=== PATIENT | female | born 1980 | race Caucasian/White ===

== ENCOUNTER 2024-04-04 00:12 | Day surgery (SDC) | payer OTHER, SELFPAY ==
[2024-03-24 12:15] VITALS: BMI 37.1
[2024-04-04 07:55] VITALS: BP 104/57; PULSE 64; RESP 16; TEMP 36.1; O2SAT 98
[2024-04-04] MEDS: LACTATED RINGERS 1,000 ML 150 ML IV CONT (08:01)
--- NOTE | 2024-04-04 08:54 | PM.HPGS ---
History of Present Illness History of Present Illness Consent: Risks, benefits, and alternatives have been discussed and questions answered. Patient agrees to proceed with procedure. Chief complaint: colon screening Narrative: Airam Munoz is a 43 year old female here for first screening colonoscopy Review of Systems Review of Systems: All systems reviewed & are unremarkable except as noted in HPI and below PMFSH Past Medical History Medical History (Updated 04/04/24 @ 08:58 by Phuc Price MD) Colon cancer screening Endometriosis Vaginal delivery x2 Surgical History Surgical History History of right oophorectomy [place] teeth removed S/P laparoscopic hysterectomy History of appendectomy History of tubal ligation Family History Family History Mother Family history of malignant neoplasm of ovary Social History Social History Smoking status: Never smoker Alcohol intake: current Substance use: never Lack of Transportation: No Lack of Food: Never True Current Housing: I Have Housing Concerned About Future Housing: No Difficulty Paying Gas/Electric Bills: No Difficulty Paying for Meds: No Education: Master's Degree or Higher Difficulty w/ Childcare or Family Care: No Living arrangements: with family Occupation/Education: occupation Gender identity (if verbalized by the patient): Female Spiritual care concerns: No Agree to blood products: No Meds Home Medications and Allergies Home Medications ?Medication ?Instructions ?Recorded ?Confirmed ?Type escitalopram oxalate 5 mg tablet 5 mg PO DAILY #90 tabs 03/02/24 04/04/24 Rx (Lexapro) esterified 1 tablet PO DAILY 30 days #90 tabs 03/02/24 04/04/24 Rx estrogens-methyltestosterone 1.25 mg-2.5 mg tablet estradiol 0.5 mg tablet 0.5 mg PO DAILY #90 tabs 03/02/24 04/04/24 Rx cetirizine 10 mg capsule (All Day 10 mg PO DAILY 03/24/24 04/04/24 History Allergy (cetirizine)) omeprazole 20 mg tablet,delayed 20 mg PO DAILY 03/24/24 04/04/24 History release Allergies Allergy/AdvReac Type Severity Reaction Status Date / Time No Known Allergies Allergy Verified 04/04/24 07:53 Vital Signs Vital Signs - 24 hr 04/04/24 07:55 Temperature 97.0 F L Pulse Rate 64 Respiratory Rate 16 Blood Pressure 104/57 L Pulse Oximetry 98 Oxygen Delivery Room Air Exam Const: General: comfortable and no acute distress HENMT: Face/Nose/Sinus: Normal nares present Eyes: General: appearance normal, both eyes and all related structures Neck: Neck: no JVD Resp: Auscultation: clear to auscultation bilaterally Cardio: Rate: regular rate Rhythm: regular rhythm GI: Inspection: non-distended GI Palp: Yes Soft to palpation Skin: General skin exam: normal color Neuro: General: gait normal Speech: normal speech Extrem: General: normal to inspection Psych: Mental Status: mental status grossly normal Assessment and Plan Assessment and plan (1) Colon cancer screening: Code(s): Z12.11 - Encounter for screening for malignant neoplasm of colon Status: Acute Assessment and Plan: colonoscopy
--- NOTE | 2024-04-04 08:56 | WPDANESEPPF ---
Anes - Initial Pre Proc Eval Procedure: Operation Date: 04/04/24 09:00 Proposed Procedures p Screening Colonoscopy - Phuc Price MD Date/Time: 04/04/24 08:56 Surgeon: Phuc Price MD Pre Op Diagnosis: family hx of cancer Patient Data Age: 43 Gender: F Height: 1.68 m Weight: 105.5 kg Last Vital Signs Temp 97.0 F L 04/04/24 07:55 Pulse 64 04/04/24 07:55 Resp 16 04/04/24 07:55 BP 104/57 L 04/04/24 07:55 Pulse Ox 98 04/04/24 07:55 O2 Del Method Room Air 04/04/24 07:55 Allergies Allergy/AdvReac Type Severity Reaction Status Date / Time No Known Allergies Allergy Verified 04/04/24 07:53 Home Medications ?Medication ?Instructions ?Recorded ?Confirmed ?Type escitalopram oxalate 5 mg tablet 5 mg PO DAILY #90 tabs 03/02/24 04/04/24 Rx (Lexapro) esterified 1 tablet PO DAILY 30 days #90 tabs 03/02/24 04/04/24 Rx estrogens-methyltestosterone 1.25 mg-2.5 mg tablet estradiol 0.5 mg tablet 0.5 mg PO DAILY #90 tabs 03/02/24 04/04/24 Rx cetirizine 10 mg capsule (All Day 10 mg PO DAILY 03/24/24 04/04/24 History Allergy (cetirizine)) omeprazole 20 mg tablet,delayed 20 mg PO DAILY 03/24/24 04/04/24 History release Patient hx anesthesia problems: none Family hx anesthesia problems: none Results Review: All pre-operative results and documents have been reviewed as part of the pre-operative evaluation. [facility] Past Medical History Medical History Endometriosis Vaginal delivery x2 Surgical History Surgical History History of right oophorectomy [place] teeth removed S/P laparoscopic hysterectomy History of appendectomy History of tubal ligation Family History Family History Mother Family history of malignant neoplasm of ovary Social History Social History Smoking status: Never smoker Alcohol intake: current Substance use: never Lack of Transportation: No Lack of Food: Never True Current Housing: I Have Housing Concerned About Future Housing: No Difficulty Paying Gas/Electric Bills: No Difficulty Paying for Meds: No Education: Master's Degree or Higher Difficulty w/ Childcare or Family Care: No Living arrangements: with family Occupation/Education: occupation Gender identity (if verbalized by the patient): Female Spiritual care concerns: No Agree to blood products: No Anes - Eval Final PreProcedure Day of Procedure 04/04/24 08:56 Patient weight: obese Heart: regular rate and rhythm Lungs: clear to auscultation Airway: Mallampati scale class II Neurological: alert and oriented Last oral intake: >/= 8 hours ASA classification: III Emergent: no Anesthetic plan: proceed Anesthesia type and monitoring: general GIVS and standard monitoring Results Review: All pre-operative results and documents have been reviewed as part of the pre-operative evaluation. BMI 37, ROBERTO on CPAP. Informed Consent: The patient's anesthetic plan and its attendant risks and benefits were discussed with the patient/family/POA. Questions were solicited and answers provided to the satisfaction of the patient/family/POA.
[2024-04-04 09:16] VITALS: BP 103/64; PULSE 63; RESP 16; O2SAT 98
[2024-04-04 09:26] VITALS: BP 102/65; PULSE 64; RESP 16; O2SAT 100
[2024-04-04 09:36] VITALS: BP 115/64; PULSE 62; RESP 16; O2SAT 100
--- OUTSIDE RECORDS SUMMARY | 2024-04-11 00:40 | XMS_ITS | Encounter Summary ---
Author Organization [facility] Address [address] [place] [address] Care Team Providers Care Stamp Collector Name Role Phone Melonie Ochoa MD Primary Care Provider [phone] Reason for Visit * Auth/Cert Specialty Diagnoses / Procedures Referred By Yanni weaver Referred To Contact Diagnoses Diagnosis unknown Diagnosis unknown [R69] Procedures LAPAROSCOPIC FULGURATION/EXCISION ENDOMETRIOSIS WITH LASER Referral ID Status Reason Start Date Expiration Date Visits Re quested Visits Authorized [id number] 1 1 Encounter Details Date Type Department Care Team (Latest Contact Info) Description 05/04/2018 5:31 AM HEDGE FUND ACCOUNTANT - 05/04/2018 1:09 PM [facility] Hospital Encounter [facility] [address] [place] [address] Robert Portillo MD [address] [place] [address] Surgery General Discharge Disposition: Home or Self Care Social History Tobacco Use Types Packs/Day Years Used Date Smoking Tobacco: Never Smokeless Tobacco: Never Alcohol Use Standard Drinks/Week Comments Yes 1 (1 standard drink = 0.6 oz pur e alcohol) occasionally per month Sex and Gender Information Value Date Recorded Sex Assigned at Not on file Gender Identity Not on file Sexual Orientation Not on file documented as of this encounter Last Filed Vital Signs Vital Sign Reading Time Taken Comments Blood Pressure 112/72 05/04/2018 10:45 AM HEDGE FUND ACCOUNTANT Pulse 83 05/04/2018 10:45 AM HEDGE FUND ACCOUNTANT Temperature 36.3 ??C (97.4 ??F) 05/04/2018 10:[address] Respiratory Rate 16 05/04/2018 10:45 AM HEDGE FUND ACCOUNTANT Oxygen Saturation 100% 05/04/2018 10:45 AM HEDGE FUND ACCOUNTANT Inhaled Oxygen Concentration - - Weight 95.3 kg (210 lb) 05/04/2018 6:13 AM HEDGE FUND ACCOUNTANT Height 168.9 cm (5' 6.5 ) 05/04/2018 6:13 AM HEDGE FUND ACCOUNTANT Body Mass Index 33.39 05/04/2018 6:13 AM HEDGE FUND ACCOUNTANT documented in this encounter Functional Status Functional Status Response Date of Assess ment Is person deaf or have serious hearing difficult y? No 09/10/2016 Is person blind or have serious difficulty seein g? No 09/10/2016 Does person have serious dif ficulty walking/climbing stairs? No 09/10/2016 Does person have difficulty dressing/bathing? No 09/10/2016 Does person have difficulty doing errands alone? No 09/10/2016 Cognitive Status Response Date of Assessm ent Does person have difficulty concentrating/remembering/making decisions? No 09/10/2016 documented as of this encounter Medications at Time of Discharge Medication Sig Dispensed Refills Start Date End Date cetirizine (ZYRTEC) 10 MG tablet Take 10 mg by mouth once daily docusate sodium (COLACE) 100 MG capsule Take 1 capsule by mouth 2 times daily 60 capsule 05/04/2018 fluticasone propionate (FLONASE) 50 MCG/ACT nasal spray [place] 1 [place] into each nostril once daily 10/22/2015 ibuprofen (MOTRIN) 600 MG tablet Take 1 tablet by mouth every 6 hours 40 tablet 05/04/2018 oxyCODONE-acetaminop hen (PERCOCET) 5-325 MG tablet Take 2 tablets by mouth every 6 hours Do not exceed 3 grams of acetaminophen (TYLENOL) daily. 28 tablet 05/04/2018 polyethylene glycol 3350 (GLYCOLAX) powder Take 17 g by mouth once daily 500 g 09/11/2016 docusate sodium (COLACE) 100 MG capsuleIndications:C hronic pelvic pain in female Take 1 Cap by mouth 2 times daily 60 Cap 09/11/2016 05/14/2018 documented as of this encounter Progress Notes * Nissa Calzada RN - 05/04/2018 10:56 AM CST Up to Bathroom. Voided small amt. Of urine. Back to bed. E FUND ACCOUNTANT * Chandni Hummel RN - 05/04/2018 10:22 AM CST ATTEMPTED BED JENKINS UNABLE TO VOID AT THIS TIME. E FUND ACCOUNTANT documented in this encounter H&P Notes * Robert Portillo MD - 04/30/2018 10:29 AM CST Pre Op History & Physical Per chart review Pre-Operative Diagnosis: Endometriosis, status post optimal excision, total laparoscopic hysterectomy with bilateral salpingectomy and right oophorectomy, appendectomy in August 2016 Now left-sided pain for 1 month Patient is adamantly requesting to have a left oophorectomy Chronic pelvic pain Planned Procedure: Diagnostic laparoscopy, excision of endometriosis with carbon dioxide laser, left oophorectomy, cystoscopy with possible stent placement Surgeon: Dr. Robert Portillo MD History: 37 y.o. female here for follow-up visit with me for pre-op evaluation. Patient is s/p optimal excison in 2016 for chronic pelvic pain Biopsy + endometriosis was noted at time of surgery Endometriosis, status post optimal excision, total laparoscopic hysterectomy with bilateral salpingectomy and right oophorectomy, appendectomy in August 2016 Now left-sided pain for 1 month Patient is adamantly requesting to have a left oophorectomy PMH: Past Medical History: Diagnosis Date ??? Endometriosis ??? Seasonal allergies PSH: Past Surgical History: Procedure Laterality Date ??? APPENDECTOMY, LAPAROSCOPIC 09/10/2016 LAPAROSCOPIC APPENDECTOMY ??? Bilateral Tubal Ligation (BTL) ??? CYSTOSCOPY 09/10/2016 CYSTOSCOPY WITH HYDRODISTENSION #### SCIP #### ??? DILATION AND CURETTAGE mAB ??? Dilation and Curettage x 2 ??? ENDOMETRIAL ABLATION ??? ENDOMETRIOSIS FULGURATION 09/10/2016 Faviola - optimal lapex, TLH and right oophorectomy and BS, appendectomy, neg IC ??? HYSTERECTOMY TOTAL LAP W TUBE/OVARY 09/10/2016 TOTAL LAPAROSCOPIC HYSTERECTOMY RIGHT OOPHERECTOMY SALPINGECTOMY LEFT SALPINGECTOMY ??? HYSTEROSCOPY ??? LAPAROSCOPY, DIAGNOSTIC x 2 OB: OB History Para Term AB Living 3 1 1 1 1 SAB TAB Ectopic Multiple Live Births 1 1 # Outcome Date GA Lbr Noble/2nd Weight Sex Delivery Anes PTL Lv 3 2 Term 40w0d 4111 g (9 lb 1 oz) F Vag-Spont СЕРГЕЙ Comments: no complications 1 SAB Comments: mAB s/p D&C Obstetric Comments Denies h/o STDs and HIV. 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 Marital status: Spouse name: N/A ??? Number of children: N/A ??? Years of education: N/A Occupational History ??? Not on file. Social History Main Topics ??? Smoking status: Never Smoker ??? Smokeless tobacco: Never Used ??? Alcohol use 0.6 oz/week 1 Glasses of wine per week Comment: occasionally per month ??? Drug use: No ??? Sexual activity: Yes Partners: Male control/ protection: Hysterectomy Other Topics Concern ??? Not on file Social History Narrative No Known Allergies No current facility-administered medications for this encounter. Current Outpatient Prescriptions Medication Sig Dispense Refill ??? cetirizine (ZYRTEC) 10 MG tablet Take 10 mg by mouth once daily ??? cyclobenzaprine (FLEXERIL) 5 MG tablet Take 1 Tab by mouth 3 times daily as needed (Patient nottaking: Reported on 03/03/2018) 30 Tab 0 ??? docusate sodium (COLACE) 100 MG capsule Take 1 Cap by mouth 2 times daily (Patient not taking: Reported on 03/03/2018) 60 Cap 0 ??? fluticasone propionate (FLONASE) 50 MCG/ACT nasal spray [place] 1 [place] into each nostril once daily ??? HYDROcodone-acetaminophen (NORCO) 5-325 MG tablet Take 1 tablet by mouth every 4 hours as needed for Pain (Patient not taking: Reported on 04/21/2018) 28 tablet 0 ??? oxyCODONE-acetaminophen (PERCOCET) 5-325 MG tablet Take 1-2 tablets every 6 hours as needed forpain, by mouth. (Patient not taking: Reported on 04/21/2018) 28 tablet 0 ??? polyethylene glycol 3350 (GLYCOLAX) powder Take 17 g by mouth once daily (Patient not taking: Reported on 02/04/2018) 500 g 0 ??? traMADol (ULTRAM) 50 MG tablet Take 1 Tab by mouth every 6 hours (Patient not taking: Reported on 04/21/2018) 40 Tab 0 Exam in office per chart review: General: Within normal limits. Well appearing. Normal affect. Skin: Within normal limits. ENT: Thyroid within normal limits. No lymphadenopathy. Lungs: Within normal limits. Clear bilaterally. Cardiovascular: Regular rate and rhythm. Breast: Deferred Abdominal: Within normal limits. Scars noted. No palpable masses. Pain 6/10 in LLQ. ?? PELVIC: External genitalia: Within normal limits. modearte pelvic floor tension. Cervix: Surgically absent Uterus: Surgically absent There is tenderness of left vaginal cuff There is some tenderness to palpation of the vaginal sidewalls. Adnexa: not felt due to BMI Rectovaginal exam: No palpable masses. Guaiac not done. Lab Review: No results for input(s): ABORH in the last 27748 hours. Recent Labs Component Name 04/21/18 1434 09/11/16 0301 09/02/16 0940 WBC 8.1 10.6 7.0 HGB 13.5 11.7* 14.0 HCT 39.1 34.3* 40.7 PLTCOUNT 305 223 248 No results for input(s): SODIUM, POTASSIUM, CHLORIDE, CO2, BUN, CREATININE, GLUCOSE, CALCIUM in thelast 44082 hours. Assessment/Plan: 37 y.o. with: Endometriosis, status post optimal excision, total laparoscopic hysterectomy with bilateral salpingectomy and right oophorectomy, appendectomy in August 2016 Now left-sided pain for 1 month Patient is adamantly requesting to have a left oophorectomy Chronic pelvic pain Planned procedure: Diagnostic laparoscopy, excision of endometriosis with carbon dioxide laser, left oophorectomy, cystoscopy with possible stent placement Risks and Benefits of surgery were reviewed with the patient during her last clinic appointment, including but not limited to: infection, bleeding, possible need for blood transfusion, damage to surrounding structures (bladder, bowel, ureters). Problems requiring medication: None Norma Leslie MD Obstetrics and Gynecology, PGY-1 10:29 AM 04/30/2018 History and Physical note reviewed and agree with above. Consent and procedure discussed with patient. Risk, benefits and alternative reviewed in detail. Questions elicited and answered. Post op instructions/precautions given. Transfer to OR when ready. Robert Portillo MD E FUND ACCOUNTANT documented in this encounter OR Notes * Operative - Robert Portillo MD - 05/04/2018 1:09 PM CST Operative Note: Preoperative Diagnosis: Endometriosis, status post optimal excision surgery s/p Total laparoscopic hysterectomy with bilateral salpingectomy and right oophorectomy s/p Appendectomy Chronic pelvic pain - left-side dominant ?? Postoperative Diagnosis: Same ?? Procedure: Diagnostic laparoscopy Excision of abnormal peritoneum with CO2 laser Left oophorectomy Cystoscopic placement of bilateral ureteral guidewires Date of Procedure: 05/04/18 Anesthesia: General Surgeons: Robert Portillo MD Assistants: Susan Davila, DO EBL: 50 cc ?? Urine output: 150 cc ?? IV Fluids: 800 cc ?? Brief findings: 1. The left ovary appeared normal. 2. Abnormal lesions were excised from the areas of the peritoneal cavity as noted below 3. There were some mild adhesions of the sigmoid to the left lateral sidewall. 4. Normal liver, and gallbladder Pathology: Specimens collected: ID Type Source Tests Collected by Time Destination A : SIGMOID ADHESION Path Adhesions GROSS + MICRO EXAM (STL) Robert Portillo MD 05/04/2018 0844 B : LEFT OVARY Path Ovary GROSS + MICRO EXAM (STL) Robert Portillo MD 05/04/2018 0900 C : LEFT POSTERIOR CUL-DE-SAC Path Cul De Sac GROSS + MICRO EXAM (STL) Robert Hassan MD 05/04/2018 0901 Antibiotics: Cefazolin 2g IV Complications: None apparent. Procedure: The patient was taken back to the OR where anaesthesia was found to be adequate. The patient was prepped and draped in the usual fashion. Bilateral arms were tucked. The Bovie was on the left upper thigh. Bilateral SCDs were in place and functioning. Cystoscopy was performed in the usual fashion and bilateral ureteral guidewires were placed under direct cystoscopic visualization. Cystoscope was withdrawn. The Barrios, EEA sizer as a uterine manipulator, and medium-sized EEA sizer as a rectal probe were placed in the sterile field. 0.25% Marcaine was used for local anaesthesia at all port sites. A 12 mm incision was made with a #11 blade vertically in the inferior aspect of the umbilicus but within the borders of the umbilical crater. Curved Alas scissors were used to isolate the fascia. By elevating the umbilical stalk with a Renato, the fascial defect at the base of the umbilical stalk was identified and entered bluntly with a curved hemostat. The fascial defect was widened using S- retractors, traction and countertraction. The fascial edges were tagged were O-Vicryl. A 10mm balloon trocar was placed without difficulty. Operating pressure was 15 mmHg. The area directly below the umbilical site was inspected for bowel injury and was found to be negative. The patient was placed in steep Trendelenburg. A single bladeless 5 mm lateral port was placed 2 cm medial to the left ASIS, under direct visualization, and after transillumination to avoid the superficial epigastric vessels. An 8mm AirSeal port was placed 2cm medial to the right ASIS, under direct visualization. Findings were as above. Near contact laparoscopy was used to systematically identify all areas of abnormal peritoneum. All abnormal areas described above were excised with the CO2 laser. The laser was used first to circumscribe the lesion in situ. The peritoneum was then excised completely using blunt and sharp dissection. Hemostasis was achieved when needed using point coagulation with bipolar energy using the Jonh bipolar. There was excellent hemostasis. The ureters were seen to peristalse before, during, and after excision. All specimens were sent to pathology. Left oophorectomy was performed in the usual fashion. The left ovary was grasped and gently retracted away from the pelvic sidewall, exposing the IP ligament. Using the Ligasure device, the IP ligament was doubly clamped and coagulated prior to complete transection. Inspection of the pedicle revealed excellent hemostasis. The ovary was placed in an Endocatch bag and removed through the umbilical incision. Optimal excision of all areas of visible abnormal peritoneum was believed to be achieved. There wasexcellent hemostasis and the irrigation fluid was clear. The umbilical trocar was remvoed and the fascial defect at the umbilical incision was closed under direct visualization with aid of the Portillo-Cantor device. All trocars were removed. Pneumoperitoneum was completely reduced. The skin at the umbilicus was approximated using running subcuticular 4-0 Monocryl and dressed with gauze and a Tegaderm. A modified wound vacuum was created. The lateral incisions were hemostatic, closed with interrupted subcuticular sutures of 4-0 Monocryl, and dressed with Dermabond. All counts were correct, times two. The patient tolerated the procedure well and taken to the PACU in good condition. Dr. Portillo was/were scrubbed and present throughout the entire procedure. Susan Davila DO 05/04/2018 5:42 PM CC: Robert Portillo MD Operative note reviewed and modified Agree with description of procedure and findings as described above I was present for the entire procedure and performed all burns aspects of it. Robert Portillo MD professor of mathematics of OBGYN, [facility] Endometriosis, Minimally Invasive Gynecology E FUND ACCOUNTANT * Brief Op Note - Susan Davila DO - 05/04/2018 9:51 AM CST Brief Operative Note Patient: Airam Munoz Date: 05/04/2018, 9:51 AM Preoperative Diagnosis: Endometriosis, status post optimal excision surgery s/p Total laparoscopic hysterectomy with bilateral salpingectomy and right oophorectomy s/p Appendectomy Chronic pelvic pain - left-side dominant Postoperative Diagnosis: Same Procedure: Diagnostic laparoscopy Excision of abnormal peritoneum with CO2 laser Left oophorectomy Cystoscopic placement of bilateral ureteral guidewires Surgeon: Robert Portillo MD Seam Closer: Susan Davila DO Type of anesthesia: General Complications: None apparent EBL: 50 cc Urine output: 150 cc IV Fluids: 800 cc Brief findings: 1. The left ovary appeared normal. 2. Abnormal lesions were excised from the areas of the peritoneal cavity as noted below 3. There were some mild adhesions of the sigmoid to the left lateral sidewall. 4. Normal liver, and gallbladder Specimens: To Pathology ID Type Source Tests Collected by Time Destination A : SIGMOID ADHESION Path Adhesions GROSS + MICRO EXAM (STL) Robert Portillo MD 05/04/2018 0844 B : LEFT OVARY Path Ovary GROSS + MICRO EXAM (STL) Robert Portillo MD 05/04/2018 0900 C : LEFT POSTERIOR CUL-DE-SAC Path Cul De Sac GROSS + MICRO EXAM (STL) Robert Hassan MD 05/04/2018 0901 Full operative note to follow Susan Davila DO 05/04/2018 9:51 AM E FUND ACCOUNTANT documented in this encounter Plan of Treatment Not on file documented as of this encounter Procedures Procedure Name Priority Date/Time Associated Diagnosis Comments CARDIAC RHYTHM STRIP ORDER 05/06/2018 9:55 PM HEDGE FUND ACCOUNTANT APHERESIS/TRANSFUSIO N ORDER 05/06/2018 9:55 PM HEDGE FUND ACCOUNTANT PATHOLOGY TISSUE EXAM (STL) Routine 05/04/2018 8:44 AM HEDGE FUND ACCOUNTANT Diagnosis unknown LAPAROSCOPIC SALPINGECTOMY AND/OR OOPHORECTOMY 05/04/2018 7:23 AM HEDGE FUND ACCOUNTANT Diagnosis unknown Special Needs NEEDS AIRSEAL--NO REP NEEDED PER OFFICE (VERA) / NEEDS [employer] FOR 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 (MICHELLE) NOTIFIED, CONFIRMATION # [id number]--69/16 CT CYSTOSCOPY WITH INSERTION URETERAL STENT 05/04/2018 7:23 AM HEDGE FUND ACCOUNTANT Diagnosis unknown Special Needs NEEDS AIRSEAL--NO REP NEEDED PER OFFICE (VERA) / NEEDS [employer] [facility] FOR 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 (MICHELLE) NOTIFIED, CONFIRMATION # [id number]--22/16 CT LAPAROSCOPIC FULGURATION/EXCISION LESION PELVIC/OVARY (LASER) 05/04/2018 7:23 AM HEDGE FUND ACCOUNTANT Diagnosis unknown Special Needs NEEDS AIRSEAL--NO REP NEEDED PER OFFICE (VERA) / NEEDS [employer] [facility] 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 (MCIHELLE) NOTIFIED, CONFIRMATION # [id number]--78/16 CT documented in this encounter Results * CARDIAC RHYTHM STRIP ORDER (05/06/2018 9:55 PM HEDGE FUND ACCOUNTANT) Narrative 05/06/2018 9:55 PM HEDGE FUND ACCOUNTANT Ordered by an unspecified provider. Scanned Document CARDIAC SERVICES ORD ERABLES * APHERESIS/TRANSFUSION ORDER (05/06/2018 9:55 PM HEDGE FUND ACCOUNTANT) Narrative 05/06/2018 9:55 PM HEDGE FUND ACCOUNTANT Ordered by an unspecified provider. Scanned Document NURSING - VITAL SIGN S AND ASSESSMENT * GROSS + MICRO EXAM (STL) (05/04/2018 8:44 AM HEDGE FUND ACCOUNTANT) Case Report Surgical Pathology Report ? Case: [id number] ? Authorizing Provider: ??Robert Portillo MD ?Collected: ? 05/04/2018 08:44 AM ? Ordering Location: ? [facility] ? Received: ?05/04/2018 09:59 AM ? Pathologist: ? Danya Mtz MD ? Specimens: ?? A) - Adhesions, SIGMOID ADHESION ? B) - Ovary, LEFT OVARY ? C) - Cul De Sac , LEFT POSTERIOR CUL-DE-SAC ? 2018 4:10 PM HEDGE FUND ACCOUNTANT [facility] Final Diagnosis A: Soft tissue, sigmoid adhesion, excision: - Fibroconnective tissue with vascular congestion - Negative for endometriosis B: Ovary, left, oophorectomy: - Multiple cystic follicles C: Cul De Sac, left posterior, excision: - Negative for endometriosis 2018 4:10 PM HEDGE FUND ACCOUNTANT [facility] Gross Description The tissue is received in three containers of formalin all labeled Airam Munoz A. The first container is additionally labeled sigmoid adhesion and contains an irregular piece of purple-brown fibromembranous tissue measuring 1.7 x 0.6 x 0.2 cm. Sectioning displays a soft, purple-brown cut surface. The specimen is submitted entirely in cassette A1. B. The second container is additionally labeled left ovary and contains a 17 g ovary measuring 4.2 x 3.7 x 2.1 cm. The surface is red-yellow and smooth. Sectioning displays Mottled, purple-brown cut surface and scattered smooth-walled cysts ranging from 0.1 up to 1.3 cm. No solid areas or papillary excrescences are grossly appreciated. Cash Accountant sections are submitted in cassettes B1-B3. C. The third container is additionally labeled left posterior cul-de-sac and contains an irregular layer of purple-yellow fibromembranous tissue measuring 1.4 x 0.9 x 0.2 cm. Sectioning displays an unremarkable cut surface. The specimen is submitted entirely in cassette C1. XAVI/gerard 2018 4:10 PM [facility] Microscopic Description There is no evidence of atypia or malignancy. SD 2018 4:10 PM [facility] Disclaimer All histochemical and/or immunohistochemical results are interpreted with controls that demonstrate appropriate staining reactions before reporting results. Note on use of immunocytochemistry reagents: This test was developed and its performance characteristic determined by [facility], Department of Laboratory Medicine. It has not been cleared or approved by the U.S. Food and Drug Administration (FDA). The FDA has determined that such clearance or approval is not necessary. The test is used for clinical purpose. It should not be regarded as investigational or for research. This laboratory is certified to perform high complexity testing. 2018 4:10 PM [facility] Embedded Images 2018 4:10 PM [facility] Pathology/Cytology ADHESION / Unknown 8:44 AM HEDGE FUND ACCOUNTANT 05/04/2018 9:59 AM HEDGE FUND ACCOUNTANT Miscellaneous samples (specimen) ENTIRE OVARY / Unknown 05/04/2018 9:00 AM HEDGE FUND ACCOUNTANT 05/04/2018 9:59 AM HEDGE FUND ACCOUNTANT Miscellaneous samples (specimen) ENTIRE RECTOUTERINE POUCH / Unknown 05/04/2018 9:01 AM HEDGE FUND ACCOUNTANT 05/04/2018 9:59 AM HEDGE FUND ACCOUNTANT Robert Portillo MD LAB - PATHOLOGY/CY TOLOGY ORDERABLES [facility] [address] [place] [address] documented in this encounter Visit Diagnoses Diagnosis Diagnosis unknown Other unknown and unspecified cause of morbidity or mortality documented in this encounter Administered Medications Inactive Administered Medications - up to 3 most recent administrations Medication Order MAR Action Action Date Dose Rate Site acetaminophen (TYLENOL) tablet 1,000 mg 1,000 mg, Oral, ONCE, 1 dose, On Thu05/04/18 at 0600, Pre-op $ Given 05/04/2018 6:16 AM HEDGE FUND ACCOUNTANT 1,000 mg lactated ringers infusion at 20 mL/hr, Intravenous, PRE-OP CONTINUOUS, Starting on Thu05/04/18 at 0600, Until Thu05/04/18 at 1410, Pre-op $ New Bag/Syringe 05/04/2018 9:36 AM HEDGE FUND ACCOUNTANT $ New Bag/Syringe 05/04/2018 6:17 AM HEDGE FUND ACCOUNTANT 20 mL/ hr lidocaine (XYLOCAINE MPF) 1 % injection 0.2 mL 0.2 mL, Infiltration, PRE-OP MULTIPLE, 3 doses, Starting on Thu05/04/18 at 0558, Until Thu05/04/18 at 1410, May be used (0.2 ml locally to anesthetize prior to insertion)., Pre-op $ Given 05/04/2018 6:16 AM HEDGE FUND ACCOUNTANT 0.2 mL oxyCODONE-acetaminophen (PERCOCET) 5-325 MG tablet 2 tablet 2 tablet, Oral, EVERY 6 HOURS, First dose on Thu05/04/18 at 1200, Until Discontinued, Post-op $ Given 05/04/2018 11:07 AM HEDGE FUND ACCOUNTANT 1 tablet ropivacaine (NAROPIN ON-Q) 0.2% in ELASTOMERIC PUMP 550 mL 550 mL, Infiltration, CONTINUOUS, Starting on Thu05/04/18 at 0715, Until Thu05/04/18 at 1410, Infuse at 8-12 mL/hr REFRIGERATE scopolamine (TRANSDERM-SCOP) patch 1 mg 1 mg, Administer over 72 Hours, PRE-OP ONCE, 1 dose, On Thu05/04/18 at 0600, Apply patch behind the ear, do not cut patch, only 1 patch should be worn at a time and remove old patch before applying new patch.This patch may contain metal and is not compatible with MRI. Notify radiology of patch location upon arrival to MRI. All scopolamine patches deliver 1mg of scopolamine over 72 hours. Product may be labeled as 1mg/72 hours or 1.5mg/72 hours. $ Applied 05/04/2018 6:16 AM HEDGE FUND ACCOUNTANT 1 mg Behind Left Ear scopolamine patch placement confirmation Transdermal, 2 TIMES DAILY, 730 doses, First dose on Thu05/04/18 at 0900, Last dose on Thu05/03/19 at 2100, Patient has a patch to be confirmed on transition to inpatient and 2 times daily. documented in this encounter Active and Recently Administered Medications Times are shown in HEDGE FUND ACCOUNTANT. Scheduled Medication Order 05/02/2018 05/03/2018 05/04/2018 acetaminophen (TYLENOL) tablet 1,000 mg (COMPLETED) 1,000 mg, Oral, ONCE, 1 dose, On Thu05/04/18 at 0600, Pre-op 0616 ($ Given - Prov ider: Georgiana Pleitez RN) ceFAZolin (ANCEF) 2,000 mg in 50 ml IVPB (COMPLETED) 2,000 mg (2 g), at 100 mL/hr, Intravenous, PRE-OP ONCE, 1 dose, On Thu05/04/18 at 0600, Before reconstitution, protect from light, Indication for anti-infective therapy: Surgical prophylaxis 0747 ($ Given - Prov ider: Brigid Rees, CUSTOMER ASSISTANCE REPRESENTATIVE-GEAR CHANGER) lidocaine (XYLOCAINE MPF) 1 % injection 0.2 mL 0.2 mL, Infiltration, PRE-OP MULTIPLE, 3 doses, Starting on Thu05/04/18 at 0558, Until Thu05/04/18 at 1410, May be used (0.2 ml locally to anesthetize prior to insertion)., Pre-op 0616 ($ Given - Prov ider: Georgiana Pleitez RN) naloxone (NARCAN) injection 0.04 mg 0.04 mg, Intravenous, POST-OP MULTIPLE, Starting on Thu05/04/18 at 1000, Until Thu05/04/18 at 1410, Notify physician immediately, and mix 0.4 mg Naloxone in 9 mL Normal Saline for slow IV push. Administer dilute Naloxone solution IV very slowly (5 mL over 2 minutes) while observing the patient response and titrating to effect. If no response, call Rapid Response, continue IV Naloxone at the same rate up to a total of 0.8 mg of diluted Naloxone., PACU oxyCODONE-acetaminophen (PERCOCET) 5-325 MG tablet 2 tablet 2 tablet, Oral, EVERY 6 HOURS, First dose on Thu05/04/18 at 1200, Until Discontinued, Post-op 1107 ($ Given - Prov ider: Nissa Calzada RN) scopolamine (TRANSDERM-SCOP) patch 1 mg(Linked Group 1) 1 mg, Administer over 72 Hours, PRE-OP ONCE, 1 dose, On Thu05/04/18 at 0600, Apply patch behind the ear, do not cut patch, only 1 patch should be worn at a time and remove old patch before applying new patch.This patch may contain metal and is not compatible with MRI. Notify radiology of patch location upon arrival to MRI. All scopolamine patches deliver 1mg of scopolamine over 72 hours. Product may be labeled as 1mg/72 hours or 1.5mg/72 hours. 0616 ($ Applied - Pr ovider: Georgiana Pleitez RN) scopolamine patch placement confirmation(Linked Group 1) Transdermal, 2 TIMES DAILY, 730 doses, First dose on Thu05/04/18 at 0900, Last dose on Thu05/03/19 at 2100, Patient has a patch to be confirmed on transition to inpatient and 2 times daily. 0900 (Due) Continuous Medication Order 05/02/2018 05/03/2018 05/04/2018 lactated ringers infusion at 20 mL/hr, Intravenous, PRE-OP CONTINUOUS, Starting on Thu05/04/18 at 0600, Until Thu05/04/18 at 1410, Pre-op 0617 ($ New Bag/Syri nge - Provider: Georgiana Pleitez RN)0919 (Anesthesia Volume Adjustment - Provider: Brigid Rees APRN-GEAR CHANGER)0936 ($ New Bag/Syringe - Provider: Brigid Rees MOISÉS-GEAR CHANGER) ropivacaine (NAROPIN ON-Q) 0.2% in ELASTOMERIC PUMP 550 mL 550 mL, Infiltration, CONTINUOUS, Starting on Thu05/04/18 at 0715, Until Thu05/04/18 at 1410, Infuse at 8-12 mL/hr REFRIGERATE 0715 (Due) PRN Medication Order 05/02/2018 05/03/2018 05/04/2018 0.9% nacl irrigation solution (CANCELED) PRN, Starting on Thu05/04/18 at 0918, Until Thu05/04/18 at 0959, Intra-op 0918 ($ Given - Prov ider: Robert Portillo MD) 0.9% nacl irrigation solution (CANCELED) PRN, Starting on Thu05/04/18 at 0930, Until Thu05/04/18 at 0959, Intra-op 0930 ($ Given - Prov ider: Robert Portillo MD - Comment: irrigation) bupivacaine PF (MARCAINE PF) 0.25 % injection (CANCELED) PRN, Starting on Thu05/04/18 at 0931, Until Thu05/04/18 at 0959, Intra-op 0931 ($ Given - Prov ider: Robert Portillo MD) fentaNYL (PF) (SUBLIMAZE) injection 50 mcg 50 mcg, Intravenous, EVERY 3 MIN PRN, Mild Pain, 4 doses, Starting on Thu05/04/18 at 1000, Until Thu05/04/18 at 1410, Maximum total of 4 doses. If patient reaches max total dose, please consult anesthesiologist prior to further administration of pain meds. Hold pain meds if there are signs of hypoventilation., PACU HYDROmorphone (DILAUDID) injection 0.2 mg 0.2 mg, Intravenous, EVERY 15 MIN PRN, Moderate Pain, 5 doses, Starting on Thu05/04/18 at 1000, Until Thu05/04/18 at 1410, Maximum total of 5 doses If patient reaches max total dose, please consult anesthesiologist prior to further administration of pain meds. Hold pain meds if there are signs of hypoventilation., PACU HYDROmorphone (DILAUDID) injection 0.5 mg 0.5 mg, Intravenous, EVERY 10 MIN PRN, Severe Pain, 4 doses, Starting on Thu05/04/18 at 1000, Until Thu05/04/18 at 1410, Maximum total of 4 doses If patient reaches max total dose, please consult anesthesiologist prior to further administration of pain meds. Hold pain meds if there are signs of hypoventilation., PACU HYDROmorphone (DILAUDID) injection 0.5 mg 0.5 mg, Intravenous, EVERY 3 HOURS PRN, Severe Pain, Starting on Thu05/04/18 at 1050, Until Thu05/04/18 at 1410, Post-op metoclopramide (REGLAN) injection 5 mg 5 mg, Intravenous, EVERY 6 HOURS PRN, Nausea/Vomiting, Starting on Thu05/04/18 at 1050, Until Thu05/04/18 at 1410, If no relief from ondansetron (ZOFRAN) or prochlorperazine (COMPAZINE), use metoclopramide (REGLAN) in addition to ondansetron and prochlorperazine., Post-op metoclopramide (REGLAN) injection 5 mg 5 mg, Intramuscular, EVERY 6 HOURS PRN, Nausea/Vomiting, Starting on Thu05/04/18 at 1050, Until Thu05/04/18 at 1410, If no relief from ondansetron (ZOFRAN) or prochlorperazine (COMPAZINE), use metoclopramide (REGLAN). Use IM route if IV is unavailable in addition to ondansetron and prochlorperazine., Post-op ondansetron (disintegrating) (ZOFRAN ODT) tablet 4 mg 4 mg, Oral, EVERY 6 HOURS PRN, Nausea/Vomiting, Starting on Thu05/04/18 at 1050, Until Thu05/04/18 at 1410, Allow tablet to dissolve on the tongue, Post-op ondansetron (ZOFRAN) injection 4 mg 4 mg, Intravenous, ONCE PRN, Nausea/Vomiting, 1 dose, Starting on Thu05/04/18 at 1000, Until Thu05/04/18 at 1410, First choice, PACU ondansetron (ZOFRAN) injection 4 mg 4 mg, Intravenous, EVERY 6 HOURS PRN, Nausea/Vomiting, Starting on Thu05/04/18 at 1050, Until Thu05/04/18 at 1410, Administer IV if patient is NPO, actively vomiting, or unable to swallow., Post-op prochlorperazine (COMPAZINE) injection 5 mg 5 mg, Intravenous, EVERY 6 HOURS PRN, Nausea/Vomiting, Starting on Thu05/04/18 at 1050, Until Thu05/04/18 at 1410, If no relief from ondansetron (ZOFRAN), use prochlorperazine (COMPAZINE) in addition to ondansetron., Post-op prochlorperazine (COMPAZINE) injection 5 mg 5 mg, Intramuscular, EVERY 6 HOURS PRN, Nausea/Vomiting, Starting on Thu05/04/18 at 1050, Until Thu05/04/18 at 1410, If no relief from ondansetron (ZOFRAN), use prochlorperazine (COMPAZINE) in addition to ondansetron. Use IM route if IV is unavailable., Post-op Linked Groups Order Group 1: scopolamine (TRANSDERM-SCOP) patch 1 mgJump to med 1 mg, Administer over 72 Hours, PRE-OP ONCE, 1 dose, On Thu05/04/18 at 0600, Apply patch behind the ear, do not cut patch, only 1 patch should be worn at a time and remove old patch before applying new patch.This patch may contain metal and is not compatible with MRI. Notify radiology of patch location upon arrival to MRI. All scopolamine patches deliver 1mg of scopolamine over 72 hours. Product may be labeled as 1mg/72 hours or 1.5mg/72 hours. And scopolamine patch placement confirmationJump to med Transdermal, 2 TIMES DAILY, 730 doses, First dose on Thu05/04/18 at 0900, Last dose on Thu05/03/19 at 2100, Patient has a patch to be confirmed on transition to inpatient and 2 times daily. documented in this encounter Care Teams Stamp Collector Relationship Specialty Start Date End Date Melonie Ochoa MD PCP - General 02/04/18 documented as of this encounter
--- OUTSIDE RECORDS SUMMARY | 2024-04-11 00:40 | XMS_ITS ---
Care Plan - [facility] Created on: April 11, 2024 CAROLINA KISER : 1980 Sex: Female Author Organization [facility] Address [address] [place] [address] Phone Care Team Providers Care Draftsperson Name Role Phone ROBERTO RIVERA DO Unavailable [phone] DEVONTE ARAUJO, ROGELIO Armas Primary Care Provider [phone]
--- OUTSIDE RECORDS SUMMARY | 2024-04-11 00:40 | XMS_ITS | Clinical Summary ---
Author Organization [facility] Address [address] [place] [address] Phone Care Team Providers Care Marketing Professor Name Role Phone NICOLE ANTHONY ROBERTO Herson Unavailable [phone] DEVONTE ARAUJO, ROGELIO Armas Primary Care Provider [phone] Reason for Visit and Chief Complaint * PHONE CALL Problems Includes: Problems addressed during this encounter and other active Problems All Visits Onset Date Resolved Date Provider Condition S segundo Reported Family History of Cancer 12/30/2010 [facility]- Active Last Documented On 12/30/2010 1:51PM ; [facility] Note: mother of cervical cancer Plan of Treatment No Plan of Treatment Recorded Assessments Includes: Assessments from this encounter No Assessments Recorded Medical Equipment - Implanted Devices Includes: Current Devices No Medical Equipment Recorded Medications Includes: Medications discussed during this encounter and other current Medications Current Medications (continue as prescribed) Diflucan 150 MG OR TABS 10/26/2013 Provider: ROGELIO WHITNEY MD Diagnosis: take one po today and repeat in 3 days was phoned to [facility]. Last Documented On 4 3:35PM By SHERRI UNDERWOOD LPN ; [facility] Quasense 0.15-0.03 MG OR TABS 10/11/2013 Provider: Diagnosis: Last Documented On 10/11/2013 11:04AM By ANNY BOWMAN LPN ; [facility] Ibuprofen 600 MG OR TABS 07/04/2013 Provider: FERMIN WHITNEY MD Diagnosis: Last Documented On 07/18/2013 4:29PM By ANNY BOWMAN LPN ; [facility] HYDROcodone-Acetaminophen 5-325 MG OR TABS 06/07/2013 Provider: ROGELIO WHITNEY MD Diagnosis: Last Documented On 07/18/2013 4:29PM By ANNY BOWMAN LPN ; [facility] Past Medications on file Lomedia 24 FE 1-20 MG-MCG(24 ) OR TABS 01/12/2014 - 09/21/2014 Provider: ROGELIO WHITNEY MD Diagnosis: Last Documented On 01/12/2014 1:10PM By ROGELIO WHITNEY MD ; [facility] Ibuprofen 800 MG OR TABS 10/11/2013 - 02/08/2014 Provi kavya: ROGELIO WHITNEY MD Diagnosis: i po Q 8 hours prn pain Last Documented On 10/11/2013 11:27AM By ROGELIO WHITNEY MD ; [facility] Quasense 0.15-0.03 MG OR TABS 10/11/2013 - 10/10/2014 Provider: ROGELIO WHITNEY MD Diagnosis: May substitute any Q3 month cycling OCP (seasonale, seasonique or generic equivalent) Last Documented On 10/11/2013 11:26AM By ROGELIO WHITNEY MD ; [facility] HYDROcodone-Acetaminophen 5- 325 MG OR TABS 06/07/2013 - 06/12/2013 Provider: ROGELIO WHITNEY MD Diagnosis: Last Documented On 06/07/2013 8:24AM By ROGELIO WHITNEY MD ; [facility] Clindamycin HCl 300 MG OR CAPS 05/19/2013 - 05/26/2013 Provider: ELIAS WHITE BC Diagnosis: VAGINITIS NOS TAKE W/FOOD DIRECTED Last Documented On 4 8:48AM By ELIAS NATARAJAN ; [facility] Nitrofurantoin Macrocrystal 100 MG OR CAPS 05/16/2013 - 05/23/2013 Provider: ELIAS WHITE BC Diagnosis: URINARY FREQUENC Y Last Documented On 4 2:44PM By ELIAS NATARAJAN ; [facility] traMADol HCl 50 MG OR TABS 04/14/2013 - 04/21/2013 Pro vider: ROGELIO WHITNEY MD Diagnosis: i-ii po Q6 hours prn pain Last Documented On 04/14/2013 11:55AM By ROGELIO WHITNEY MD ; [facility] NIFEdipine 20 MG OR CAPS 03/30/2012 - 04/14/2012 Provi kavya: ROGELIO WHITNEY MD Diagnosis: Last Documented On 03/30/2012 2:46PM By ROGELIO WHITNEY MD ; [facility] Triveen-Duo DHA 29-1-200 & 4 00 MG OR MISC 02/23/2012 - 02/17/2013 Provider: ROGELIO WHITNEY MD Diagnosis: Last Documented On 02/23/2012 4:37PM By ROGELIO WHITNEY MD ; [facility] RE OB + DHA 27-1 & 250 MG OR MISC 04/25/2010 - 012 Provider: ROGELIO WHITNEY MD Diagnosis: If this isn't one of the lola e ones please substitute, thanks Last Documented On 04/25/2010 3:02PM By ROGELIO WHITNEY MD ; [facility] predniSONE 10 MG OR TABS 09/05/2009 - 10/05/2009 Provi kavya: RELL ZIMMERMAN D.OJeanmarie Diagnosis: DERMATITIS NOS 4 PILLS QD X2D 3 PILLS QD X2 D, 2 PILL QD X2D,1 PILL QD X2D Last Documented On 09/05/2009 11:51AM By RELL ZIMMERMAN DO ; [facility] Bactrim DS 800-160 MG OR TABS 03/07/2009 - 03/17/2009 Provider: BOUBACAR Odonnell Diagnosis: Ganglion Of Tend on Last Documented On 03/07/2009 12:02PM By BOUBACAR BRITT PA-C ; [facility] Medications Administered Includes: Administered Medications from this encounter No Administered Medications Recorded Results Includes: Results discussed during this encounter No Results Recorded For Specified Dates History of Present Illness Includes: History of Present Illness from this encounter No History of Present Illness Recorded Social History No Social History Recorded - Smoking Status Unknown Medical History Includes: Medical History addressed during this encounter No Medical History Recorded Family History Includes: Family History addressed during this encounter No Family History Recorded Review of Systems Includes: Review of Systems from this encounter No Review of Systems Recorded Mental Status Includes: Mental Status from this encounter No Mental Status Recorded Functional Status Includes: Functional Status from this encounter No Functional Status Recorded Physical Exam Includes: Physical Exam from this encounter No Physical Exam Recorded Allergies Includes: Active Allergies Substance Type Reaction Onset Date Resolved Date Statu s Codeine Allergy 09/15/2008 Active Last Documented On 9 10:48AM ; [facility] Encounters Encounter Provider Location Date Check-In Time Check-Out Time Diagnosis * PHONE CALL ROGELIO WHITNEY MD [facility] [employer] STEWARD[employer] 9:03AM 11:59PM Insurance Includes: Active Insurance Policies Plan Name Member ID Group # Subscriber Relationship Effect tiffanie Dates 1 - [facility] [id number] CAROLINA Santana Clinical Notes Includes: Clinical Notes from this encounter No Clinical Notes Recorded
--- OUTSIDE RECORDS SUMMARY | 2024-04-11 00:40 | XMS_ITS | Encounter Summary ---
Author Organization [facility] Address [address] [place] [address] Care Team Providers Care Outreach Representative Name Role Phone Melonie Ochoa MD Primary Care Provider [phone] Reason for Visit * Reason Comments Follow-up Encounter Details Date Type Department Care Team (Late st Contact Info) Description 03/03/2018 3:30 PM MARINE DIVER Office Visit [facility] Obstetrics Gynecology and Women's Health [address] [place] [address] Robert Portillo MD [address] [place] [address] Endometriosis (Primary Dx); Chronic pelvic pain in female Social History Tobacco Use Types Packs/Day Years [...] Sign Reading Time Taken Comments Blood Pressure 120/70 03/03/2018 3:43 PM MARINE DIVER Pulse - - Temperature - - Respiratory Rate - - Oxygen Saturation - - Inhaled Oxygen Concentration - - Weight 94.8 kg (209 lb) 03/03/2018 3:43 PM MARINE DIVER Height 168.9 cm (5' 6.5 ) 03/03/2018 3:43 PM MARINE DIVER Body Mass Index 33.23 03/03/2018 3:43 PM MARINE DIVER documented in this encounter Functional Status Functional [...] No 09/10/2016 documented as of this encounter Patient Instructions * Patient Instructions* Robert Portillo MD - 03/03/2018 4:28 PM MARINE DIVER [email or web address] How to Contact Us Between Office Visits If you need to make an appointment with your doctor, please do so before you leave today. If you need to check your schedule prior to making your next appointment, please call us at [phone] as soon as possible to schedule. For scheduling routine appointments, requesting refills or leaving a message for your doctor, the office phone is [phone]. You will be given options to get to the assistance you need. Phone lines are open from 8:00 am to 4:30 pm Thursday through Thursday. All prescription refills must be requestedduring regular office phone hours. Our fax number is [phone]. After hours urgent calls that cannot wait until phone lines are open on the next business day are given to the physician class a regional drivers. Please call [phone]. Identify yourself as a patient in our practice and give the well servicing rig operator your doctor's name. The well servicing rig operator will contact the physician class a regional drivers to address your concerns. Thank you for enrolling in [employer]. [employer] allows you to send messages to your health care team, view your test results, renew your prescriptions, request appointments, and more. How Do I Sign Up? 1. In the address bar of your Internet browser, type the following address: [email or web address] 2. Click on the Sign Up Now link in the New User? box. 3. Enter your [employer] Access Code exactly as it appears below. You will not need to use this code after you???ve completed the sign-up process. If you do not sign up before the expiration date, you must request a new code. [employer] Access Code: [email or web address] 4. Enter the last four digits of your Social Security Number (xxxx) and Date of (mm/dd/yyyy) as indicated and click Next. 5. Create a [employer] ID. This will be your [employer] login ID and cannot be changed, so think of one that is secure and easy to remember. 6. Create a [employer] password. (You can change your password at any time.) 7. Enter your Password Reset Question and Answer. (This will be used if you forget your password inthe future.) 8. Enter your e-mail address. (You will receive e-mail notifications when new information is available in [employer].) 9. Click Sign- Up. After accepting the Terms and Conditions you will be able to view your medical record. Additional Information If you have questions or problems signing up, call the [facility] [employer] Team at [phone]. Pleasenote that [employer] is not designed to address urgent needs. For medical emergencies, dial 911. NE DIVER documented in this encounter Progress Notes * Robert Portillo MD - 03/03/2018 4:04 PM CST 37 y.o. female here for follow-up visit with me for pre-op evaluation. Patient is s/p optimal excison in 2017 for chronic pelvic pain Biopsy + endometriosis was noted At time of surgery PE - at next visit ASSESSMENT: Endometriosis, status post optimal excision, total laparoscopic hysterectomy with bilateral salpingectomy and right oophorectomy, appendectomy in August 2016 Now left-sided pain for 1 month Patient is adamantly requesting to have a left oophorectomy PLAN: Surgical plan is diagnostic laparoscopy, excision of endometriosis with carbon dioxide laser, left oophorectomy. PT appointment given Discussed differential diagnosis of pelvic pain. Discussed possibility of endometriosis and possibility of adenomyosis. Discussed management options including hormonal suppression versus surgical management. Discussed excision versus ablation in the operative management of endometriosis. Discussed with the patient the risk, benefits and alternatives to operative laparoscopy, including but not limited to the risks of bleeding, infection, damage to internal organs including the bowel, bladder, ureters, nerves and blood vessels, and risk of laparotomy. Also, counseled on expectations after surgery, and the risk of the need for future surgery. All questions answered. 40 minutes was spent in face to face consultation with the patient, greater than 50% of which was counseling. Patient verbalizes understanding. NE DIVER documented in this encounter Plan of Treatment Not on file documented as of this encounter Visit Diagnoses Diagnosis Endometriosis- Primary Chronic pelvic pain in female Unspecified symptom associated with female genital organs documented in this encounter Care Teams Outreach Representative Relationship Specialty Start Date End Date Melonie Ochoa MD PCP - General 02/04/18 documented as of this encounter
--- OUTSIDE RECORDS SUMMARY | 2024-04-11 00:40 | XMS_ITS | Encounter Summary ---
Author Organization [facility] Address [address] [place] [address] Care Team Providers Care Cemetery Manager Name Role Phone Melonie Ochoa MD Primary Care Provider [phone] Reason for Visit * Reason Comments Post-Op Encounter Details Date Type Department Care Team (Late st Contact Info) Description 05/14/2018 4:15 PM SAP TREASURY CONSULTANT Office Visit [facility] Obstetrics Gynecology and Women's Health [address] [place] [address] Robert Portillo MD [address] [place] [address] Post-operative state (Primary Dx) Social History Tobacco Use Types Packs/Day Years [...] Sign Reading Time Taken Comments Blood Pressure 100/68 05/14/2018 4:41 PM SAP TREASURY CONSULTANT Pulse - - Temperature - - Respiratory Rate - - Oxygen Saturation - - Inhaled Oxygen Concentration - - Weight 95.3 kg (210 lb) 05/14/2018 4:41 PM SAP TREASURY CONSULTANT Height 167.6 cm (5' 6 ) 05/14/2018 4:41 PM SAP TREASURY CONSULTANT Body Mass Index 33.89 05/14/2018 4:41 PM SAP TREASURY CONSULTANT documented in this encounter Functional Status Functional [...] * Patient Instructions* Robert Portillo MD - 05/14/2018 4:54 PM SAP TREASURY CONSULTANT [email or web address] How to Contact Us Between Office Visits If you need to make an appointment with your doctor, please do so before you leave today. If you need to check your schedule prior to making your next appointment, please call us at [phone] as soon as possible to schedule. For scheduling routine appointments, requesting refills or leaving a message for your doctor, the office phone is [phone]. You will be given options to get to the assistance you need. Phone lines are open from 8:00 am to 4:30 pm Thursday through Thursday. All prescription refills must be requestedduring regular office phone hours. Our fax number is [phone]. After hours urgent calls that cannot wait until phone lines are open on the next business day are given to the physician regional economic liaison. Please call [phone]. Identify yourself as a patient in our practice and give the issuing operator your doctor's name. The issuing operator will contact the physician regional economic liaison to address your concerns. Thank you for enrolling in [employer]. [employer] allows you to send messages to your health care team, view your test results, renew your prescriptions, request appointments, and more. How Do I Sign Up? 1. In the address bar of your Internet browser, type the following address: [email or web address] 2. Click on the Sign Up Now link in the New User? box. 3. Enter your [employer] Access Code exactly as it appears below. You will not need to use this code after you???ve completed the sign-up process. If you do not sign up before the expiration date, you must request a new code. [employer] Access Code: [email or web address] 4. Enter the last four digits of your Social Security Number (xxxx) and Date of (mm/dd/yyyy) as indicated and click Next. 5. Create a [employer] ID. This will be your [employer] login ID and cannot be changed, so think of one that is secure and easy to remember. 6. Create a [employer] password. (You can change your password at any time.) 7. Enter your Password Reset Question and Answer. (This will be used if you forget your password inthe future.) 8. Enter your e-mail address. (You will receive e-mail notifications when new information is available in [employer].) 9. Click Sign- Up. After accepting the Terms and Conditions you will be able to view your medical record. Additional Information If you have questions or problems signing up, call the [facility] [employer] Team at [phone]. Pleasenote that In[employer] is not designed to address urgent needs. For medical emergencies, dial 911. TREASURY CONSULTANT documented in this encounter Progress Notes * Robert Portillo MD - 05/14/2018 4:50 PM CST 38 y.o. female who is here 2 weeks status post diagnostic laparoscopy Patient denies fevers, nausea, uncontrolled pain, or significant bleeding. Procedure:?? Diagnostic laparoscopy Excision of abnormal peritoneum with CO2 laser Left oophorectomy Cystoscopic placement of bilateral ureteral guidewires Brief findings:?? 1. The left??ovary??appeared normal. 2. Abnormal lesions were excised from the areas of the peritoneal cavity as noted below 3. There were some mild adhesions of the sigmoid to the left lateral sidewall. 4. Normal liver, and gallbladder Pathology: A: Soft tissue, sigmoid adhesion, excision: - Fibroconnective tissue with vascular congestion - Negative for endometriosis ? B: Ovary, left, oophorectomy: - Multiple cystic follicles ?? C: Cul De Sac, left posterior, excision: - Negative for endometriosis Vitals: 05/14/18 1641 BP: 100/68 Weight: 210 lb Height: 5' 6 Physical: Abdomen: Soft, non-distended. Non-tender. Incision are clean, dry and intact. Pelvic: Deferred. Impression: Postoperative visit. Doing well. Plan: Return to activities as tolerated. Pathology results reviewed with the patient . No specimens excised were endometriosis on pathology. Will defer hormone management, if needed or desired by the patient, to the primary critical care specialist. [place]-3 fish oil (total dose of 2000 mg per day) can be used for its potent anti-inflammatory properties. Discussed that the goal of surgery is to help pain by treating disease which is usually effective, but that endometriosis and pain are different entities. Clarified that should pain persist or return, it does not mean that the endometriosis has necessarily returned, and that patient may be referredto our multidisciplinary [facility] for treatment of pain. Discussed while there is no cure for endometriosis and that it can always return, that the risk of recurrence or persistence of the disease is low. Follow up with Dr. Mora for on-going women's health care. Follow up with me in 6 months or earlier as needed. TREASURY CONSULTANT documented in this encounter Plan of Treatment Not on file documented as of this encounter Visit Diagnoses Diagnosis Post-operative state- Primary Other postprocedural status documented in this encounter Care Teams Cemetery Manager Relationship Specialty Start Date End Date Melonie Ochoa MD PCP - General 02/04/18 documented as of this encounter
--- OUTSIDE RECORDS SUMMARY | 2024-04-11 00:40 | XMS_ITS | Clinical Summary ---
Author Organization [facility] Address [address] [place] [address] Phone Care Team Providers Care Footwear Sales Associate Name Role Phone ROBERTO RIVERA DO Herson Unavailable [phone] DEVONTE ARAUJO, ROGELIO Armas Primary Care Provider [phone] Reason for Visit and Chief Complaint [Patient Encounter] Problems Includes: Problems addressed during this encounter and other active Problems All Visits Onset Date Resolved Date Provider Condition S segundo Reported Family History of Cancer 12/30/2010 [facility]- Active Last Documented On 12/30/2010 1:51PM ; [facility] Note: mother of cervical cancer Plan of Treatment No Plan of Treatment Recorded Assessments Includes: Assessments from this encounter No Assessments Recorded Medical Equipment - Implanted Devices Includes: Current Devices No Medical Equipment Recorded Medications Includes: Medications discussed during this encounter and other current Medications New / Renewed during this visit ROGELIO WHITNEY MD on 01/12/2014 Lomedia 24 FE 1-20 MG-MCG(24 ) OR TABS Provider: ROGELIO WHITNEY MD 84 day supply: 84 tablet, 2 refills Diagnosis: Pharmacy: [facility], [place] ([place]) - [address], [address] - Last Documented On 01/12/2014 1:10PM By ROGELIO WHITNEY MD ; [facility] Current Medications (continue as prescribed) Diflucan 150 MG OR TABS 10/26/2013 Provider: ROGELIO WHITNEY MD Diagnosis: take one po today and repeat in 3 days was phoned to [facility]/[place]. Last Documented On 4 3:35PM By SHERRI UNDERWOOD LPN ; [facility] Quasense 0.15-0.03 MG OR TABS 10/11/2013 Provider: Diagnosis: Last Documented On 10/11/2013 11:04AM By ANNY BOWMAN LPN ; [facility] Ibuprofen 600 MG OR TABS 07/04/2013 Provider: FERMIN WHITNEY MD Diagnosis: Last Documented On 07/18/2013 4:29PM By ANNY BOWMAN LPN ; [facility] HYDROcodone-Acetaminophen 5-325 MG OR TABS 06/07/2013 Provider: ROGELIO WHITNEY MD Diagnosis: Last Documented On 07/18/2013 4:29PM By ANNY BOWMAN LPN ; [facility] Past Medications on file Ibuprofen 800 MG OR TABS 10/11/2013 - 02/08/2014 Provi kavya: ROGELIO WHITNEY MD Diagnosis: i po Q 8 hours prn pain Last Documented On 10/11/2013 11:27AM By ROGELIO WHITNEY MD ; [facility] Quasense 0.15-0.03 MG OR TABS 10/11/2013 - 10/10/2014 Provider: ROGELIO WHITNEY MD Diagnosis: May substitute any Q3 month cycling OCP (seasonale, seasonique or generic equivalent) Last Documented On 10/11/2013 11:26AM By ROGELIO WHITNEY MD ; [facility] HYDROcodone-Acetaminophen 5- 325 MG OR TABS 06/07/2013 - 06/12/2013 Provider: ROGELIO WHITNEY MD Diagnosis: Last Documented On 06/07/2013 8:24AM By ROGELIO WHITNEY MD ; [facility] Clindamycin HCl 300 MG OR CAPS 05/19/2013 - 05/26/2013 Provider: ELIAS WHITE BC Diagnosis: VAGINITIS NOS TAKE W/FOOD DIRECTED Last Documented On 4 8:48AM By ELIAS NATARAJAN ; [facility] Nitrofurantoin Macrocrystal 100 MG OR CAPS 05/16/2013 - 05/23/2013 Provider: ELIAS WHITE BC Diagnosis: URINARY FREQUENC Y Last Documented On 4 2:44PM By ELIAS NATARAJAN ; [facility] traMADol HCl 50 MG OR TABS 04/14/2013 - 04/21/2013 Pro vider: ROGELIO WHITNEY MD Diagnosis: i-ii po Q6 hours prn pain Last Documented On 04/14/2013 11:55AM By ROGELIO WHITNEY MD ; [facility] NIFEdipine 20 MG OR CAPS 03/30/2012 - 04/14/2012 Provi kavya: ROGELIO WHITNEY MD Diagnosis: Last Documented On 03/30/2012 2:46PM By ROGELIO WHITNEY MD ; [facility] Triveen-Duo DHA 29-1-200 & 4 00 MG OR MISC 02/23/2012 - 02/17/2013 Provider: ROGELIO WHITNEY MD Diagnosis: Last Documented On 02/23/2012 4:37PM By ROGELIO WHITNEY MD ; [facility] RE OB + DHA 27-1 & 250 MG OR MISC 04/25/2010 - 012 Provider: ROGELIO WHITNEY MD Diagnosis: If this isn't one of the lola e ones please substitute, thanks Last Documented On 04/25/2010 3:02PM By ROGELIO WHITNEY MD ; [facility] predniSONE 10 MG OR TABS 09/05/2009 - 10/05/2009 Provi kavya: RELL ZIMMERMAN DSharona Diagnosis: DERMATITIS NOS 4 PILLS QD X2D 3 PILLS QD X2 D, 2 PILL QD X2D,1 PILL QD X2D Last Documented On 09/05/2009 11:51AM By RELL ZIMMERMAN DO ; [facility] Bactrim DS 800-160 MG OR TABS 03/07/2009 - 03/17/2009 Provider: BOUBACAR Odonnell Diagnosis: Ganglion Of Tend on Last Documented On 03/07/2009 12:02PM By BOUBACAR BRITT PA-C ; [facility] Medications Administered Includes: Administered Medications from [...] Active Last Documented On 9 10:48AM ; [facility] Encounters Encounter Provider Location Date Check-In Time Check-Out Time Diagnosis [Patient Encounter] ROGELIO WHITNEY MD 01/12/2014 1:08PM 11:59PM Insurance Includes: Active Insurance Policies Plan Name Member ID Group # Subscriber Relationship Effect tiffanie Dates 1 - [facility] [id number] CAROLINA Santana Clinical Notes Includes: Clinical Notes from this encounter No Clinical Notes Recorded
--- OUTSIDE RECORDS SUMMARY | 2024-04-11 00:40 | XMS_ITS | Patient Health Summary ---
Author Organization [facility] Address [address] [place] [address] Care Team Providers Care Senior Media Director Name Role Phone Melonie Ochoa MD Primary Care Provider [phone] Note from [facility],non-owned Affiliates and Associated Physician Practices is amultiple site organization consisting of ambulatory clinics and hospital sitesin [place], [place], [place]. This disclosure is being madepursuant to the Care Everywhere program and may not contain all information available regarding this patient. Last updated 18.[facility] Allergies No known active allergies* Codeine,Inactive Medications * Be aware that medications may not be up to date on this document. Alwaysverify current medications with the patient. * cetirizine (ZYRTEC) 10 MG tablet Take 10 mg by mouth once daily * fluticasone propionate (FLONASE) 50 MCG/ACT nasal spray(Started 10/22/2015) [place] [address] [place] into each nostril once daily * polyethylene glycol 3350 (GLYCOLAX) powder(Started 09/11/2016) Take 17 g by mouth once daily * ibuprofen (MOTRIN) 600 MG tablet(Started 05/04/2018) Take 1 tablet by mouth every 6 hours * oxyCODONE-acetaminophen (PERCOCET) 5-325 MG tablet(Started 05/04/2018) Take 2 tablets by mouth every 6 hours Do not exceed 3 grams of acetaminophen (TYLENOL) daily. * docusate sodium (COLACE) 100 MG capsule(Started 05/04/2018) Take 1 capsule by mouth 2 times daily Active Problems Problem Noted Date Diagnosed Date Pelvic joint pain, left 02/04/2018 Dysmenorrhea 09/10/2016 Chronic pelvic pain in female 09/10/2016 Pain in joint involving right pelvic region and thigh 09/10/2016 Endometriosis 09/10/2016 Supervision of high-risk 03/03/2012 labor 03/03/2012 Dysuria Social History Tobacco Use Types Packs/Day Years Used Date Smoking Tobacco: Never Smokeless Tobacco: Never Alcohol Use Standard Drinks/Week Comments Yes 1 (1 standard drink = 0.6 oz pur e alcohol) occasionally per month Sex and Gender Information Value Date Recorded Sex Assigned at Not on file Gender Identity Not on file Sexual Orientation Not on file Last Filed Vital Signs Vital Sign Reading Time Taken Comments Blood Pressure 100/68 05/14/2018 4:41 PM POLE FRAME CONSTRUCTION WORKER Pulse 83 05/04/2018 10:45 AM POLE FRAME CONSTRUCTION WORKER Temperature 36.3 ??C (97.4 ??F) 05/04/2018 10:[address] Respiratory Rate 16 05/04/2018 10:45 AM POLE FRAME CONSTRUCTION WORKER Oxygen Saturation 100% 05/04/2018 10:45 AM POLE FRAME CONSTRUCTION WORKER Inhaled Oxygen Concentration - - Weight 95.3 kg (210 lb) 05/14/2018 4:41 PM POLE FRAME CONSTRUCTION WORKER Height 167.6 cm (5' 6 ) 05/14/2018 4:41 PM POLE FRAME CONSTRUCTION WORKER Body Mass Index 33.89 05/14/2018 4:41 PM POLE FRAME CONSTRUCTION WORKER Medical Devices Implanted Type Area Teacher Visually Impaired Device Identifier Shelf Expiration Date Model / Serial / Lot Sys Drg Dlv T Onq Pnbstr Slskr Tpl Xpd Implanted:Qty: 1 on 05/04/2018 by Robert Portillo MD at [facility] Abdomen [employer] and [employer] 05/12/2020 [id number] / / Procedures * CARDIAC RHYTHM STRIP ORDER(Performed 05/06/2018) * APHERESIS/TRANSFUSION ORDER(Performed 05/06/2018) * PATHOLOGY TISSUE EXAM (STL)(Performed 05/04/2018) Performed for Diagnosis unknown * ENDOTRACHEAL TUBE NOTE(Performed 05/04/2018) * LAPAROSCOPIC SALPINGECTOMY AND/OR OOPHORECTOMY(Performed 05/04/2018) Performed for Diagnosis unknown * CYSTOSCOPY WITH INSERTION URETERAL STENT(Performed 05/04/2018) Performed for Diagnosis unknown * LAPAROSCOPIC FULGURATION/EXCISION LESION PELVIC/OVARY (LASER)(Performed 05/04/2018) Performed for Diagnosis unknown * TYPE + SCREEN PANEL(Performed 04/21/2018) Performed for Pre-op testing * CBC W AUTO DIFFERENTIAL(Performed 04/21/2018) Performed for Pre-op testing * IMAGING/RADIOLOGY/XRAY RESULTS ORDER(Performed 02/05/2018) * US PELVIS W TRANSVAG W DOP NON OB(Performed 02/04/2018) Performed for Acute pelvic pain, female, Personal history of endometriosis, Abnormal ultrasound of ovary * SKIN TEST PPD - POINT OF CARE(Performed 08/31/2017) Performed for PPD positive * APHERESIS/TRANSFUSION ORDER(Performed 09/15/2016) * CARDIAC RHYTHM STRIP ORDER(Performed 09/15/2016) * CBC W AUTO DIFFERENTIAL(Performed 09/11/2016) Performed for Chronic pelvic pain in female * PATHOLOGY TISSUE EXAM (STL)(Performed 09/10/2016) Performed for Pelvic pain in female, Endometriosis, Vaginismus, Chronic pelvic pain in female, Urgency of urination * ENDOTRACHEAL TUBE NOTE(Performed 09/10/2016) * CYSTOSCOPY WITH HYDRODISTENSION BLADDER(Performed 09/10/2016) Performed for Pelvic pain in female, Endometriosis, Vaginismus, Chronic pelvic pain in female, Urgency of urination * HYSTERECTOMY TOTAL LAPAROSCOPIC WITH SALPINGECTOMY AND/OR OOPHORECTOMY (Performed 09/10/2016) Performed for Pelvic pain in female, Endometriosis, Vaginismus, Chronic pelvic pain in female, Urgency of urination * LAPAROSCOPIC APPENDECTOMY(Performed 09/10/2016) Performed for Pelvic pain in female, Endometriosis, Vaginismus, Chronic pelvic pain in female, Urgency of urination * LAPAROSCOPIC FULGURATION/EXCISION LESION PELVIC/OVARY (LASER)(Performed 09/10/2016) Performed for Pelvic pain in female, Endometriosis, Vaginismus, Chronic pelvic pain in female, Urgency of urination * HCG URINE QUALITATIVE - POINT OF CARE(Performed 09/10/2016) * PATHOLOGY/GENETICS HISTORICAL-ONBASE(Performed 09/10/2016) * TYPE + SCREEN PANEL(Performed 09/02/2016) Performed for Pre-op testing * CBC W AUTO DIFFERENTIAL(Performed 09/02/2016) Performed for Pre-op testing * CHLAMYDIA+GC LOI PAP VIAL(Performed 02/05/2016) * CULTURE URINE(Performed 02/05/2016) * LAB RESULTS ORDER(Performed 03/11/2012) * IMAGING/RADIOLOGY/XRAY RESULTS ORDER(Performed 03/11/2012) * IP CONSULT TO NEONATOLOGY(Performed 03/05/2012) * BLOOD TYPE VERIFICATION(Performed 03/04/2012) * TYPE + SCREEN PANEL(Performed 03/03/2012) * BASIC METABOLIC PANEL (CALCIUM TOTAL)(Performed 03/03/2012) * CBC W AUTO DIFFERENTIAL(Performed 03/03/2012) * CULTURE STREP B(Performed 03/03/2012) * CHLAMYDIA + GC AMPLIFIED PROBE(Performed 03/03/2012) * CULTURE URINE(Performed 03/03/2012) Results * CARDIAC RHYTHM STRIP ORDER (05/06/2018 9:55 PM POLE FRAME CONSTRUCTION WORKER) Only the most recent of2 resultswithin the time period is included. Narrative 05/06/2018 9:55 PM POLE FRAME CONSTRUCTION WORKER Ordered by an unspecified provider. Scanned Document CARDIAC SERVICES ORD ERABLES * APHERESIS/TRANSFUSION ORDER (05/06/2018 9:55 PM POLE FRAME CONSTRUCTION WORKER) Only the most recent of2 resultswithin the time period is included. Narrative 05/06/2018 9:55 PM POLE FRAME CONSTRUCTION WORKER Ordered by an unspecified provider. Scanned Document NURSING - VITAL SIGN S AND ASSESSMENT * GROSS + MICRO EXAM (STL) (05/04/2018 8:44 AM POLE FRAME CONSTRUCTION WORKER) Only the most recent of2 resultswithin the time period is included. Case Report Surgical Pathology Report ? Case: [id number] ? Authorizing Provider: ??Robert Portillo MD ?Collected: ? 05/04/2018 08:44 AM ? Ordering Location: ? [facility] ? Received: ?05/04/2018 09:59 AM ? Pathologist: ? Danya Mtz MD ? Specimens: ?? A) - Adhesions, SIGMOID ADHESION ? B) - Ovary, LEFT OVARY ? C) - Cul De Sac , LEFT POSTERIOR CUL-DE-SAC ? 2018 4:10 PM [facility] Final Diagnosis A: Soft tissue, sigmoid adhesion, excision: - Fibroconnective tissue with vascular congestion - Negative for endometriosis B: Ovary, left, oophorectomy: - Multiple cystic follicles C: Cul De Sac, left posterior, excision: - Negative for endometriosis 2018 4:10 PM [facility] Gross Description The tissue is received [...] areas or papillary excrescences are grossly appreciated. Automation And Control Engineer sections are submitted in cassettes B1-B3. C. The third container is additionally labeled left posterior cul-de-sac and contains an irregular layer of purple-yellow fibromembranous tissue measuring 1.4 x 0.9 x 0.2 cm. Sectioning displays an unremarkable cut surface. The specimen is submitted entirely in cassette C1. JS/ns 2018 4:10 PM [facility] Microscopic Description There is no evidence of atypia or malignancy. SD 2018 4:10 PM [facility] Disclaimer All histochemical and/or immunohistochemical results are interpreted with controls that demonstrate appropriate staining reactions before reporting results. Note on use of immunocytochemistry reagents: This test was developed and its performance characteristic determined by [facility], Department of Laboratory Medicine. It has not been cleared or approved by the U.S. Food and Drug Administration (FDA). The FDA has determined that such clearance or approval is not necessary. The test is used for clinical purpose. It should not be regarded as investigational or for research. This laboratory is certified to perform high complexity testing. 2018 4:10 PM [facility] Embedded Images 2018 4:10 PM [facility] Pathology/Cytology ADHESION / Unknown 8:44 AM POLE FRAME CONSTRUCTION WORKER 05/04/2018 9:59 AM POLE FRAME CONSTRUCTION WORKER Miscellaneous samples (specimen) ENTIRE OVARY / Unknown 05/04/2018 9:00 AM POLE FRAME CONSTRUCTION WORKER 05/04/2018 9:59 AM POLE FRAME CONSTRUCTION WORKER Miscellaneous samples (specimen) ENTIRE RECTOUTERINE POUCH / Unknown 05/04/2018 9:01 AM POLE FRAME CONSTRUCTION WORKER 05/04/2018 9:59 AM POLE FRAME CONSTRUCTION WORKER Robert Portillo MD LAB - PATHOLOGY/CY TOLOGY ORDERABLES [facility] [address] [place] [address] * TYPE + SCREEN PANEL (04/21/2018 2:34 PM POLE FRAME CONSTRUCTION WORKER) Only the most recent of3 resultswithin the time period is included. ABO A 04/21/2018 3:36 PM [facility] Rh Type Positive 04/21/2018 3:36 PM [facility] Comment:History checked. Antibody Screen Negative 04/21/2018 3:36 PM [facility] Blood Bank BLOOD SPECIMEN / Unknown Venipuncture / Unknown 04/21/2018 2:34 PM POLE FRAME CONSTRUCTION WORKER 04/21/2018 2:50 PM POLE FRAME CONSTRUCTION WORKER Robert Portillo MD LAB - BLOOD BANK O RDERABLES [facility] [address] [phone] * CBC W AUTO DIFFERENTIAL (04/21/2018 2:34 PM POLE FRAME CONSTRUCTION WORKER) Only the most recent of4 resultswithin the time period is included. Pathologist [facility] WBC 8.1 4.4 - 10.7 x10E9/L 04/21/2018 2:59 PM [facility] WBC Corrected x10E9/L 04/21/2018 2:59 PM [facility] RBC 4.42 3.80 - 5.20 x10E12/L 04/21/2018 2:59 PM [facility] Hemoglobin 13.5 12.0 - 15.6 gm/dL 04/21/2018 2:59 PM [facility] Hematocrit 39.1 35.9 - 45.5 % 04/21/2018 2:59 PM [facility] MCV 88.5 80.7 - 98.3 fl 04/21/2018 2:59 PM [facility] MCH 30.5 26.7 - 34.0 pg 04/21/2018 2:59 PM [facility] MCHC 34.5 30.8 - 35.9 gm/dL 04/21/2018 2:59 PM [facility] Platelet Count 305 153 - 416 x10E9/L 04/21/2018 2:59 PM [facility] RDW-CV 12.1 12.1 - 14.9 % 04/21/2018 2:59 PM [facility] MPV 9.8 9.4 - 12.9 fl 04/21/2018 2:59 PM [facility] Neutrophils % 63.3 44.0 - 73.0 % 04/21/2018 2:59 PM [facility] Lymphocytes % 27.3 20.0 - 43.0 % 04/21/2018 2:59 PM [facility] Monocytes % 7.8 5.0 - 13.0 % 04/21/2018 2:59 PM [facility] Eosinophils % 1.0 0.0 - 6.0 % 04/21/2018 2:59 PM [facility] Basophils % 0.4 0.0 - 2.0 % 04/21/2018 2:59 PM [facility] Immature Granulocytes 0.2 0 - 1 % 04/21/2018 2:59 PM [facility] Neutrophil Absolute 5.11 2.01 - 7.14 x10E9/L 04/21/2018 2:59 PM [facility] Lymphocytes Absolute 2.20 1.07 - 3.94 x10E9/L 04/21/2018 2:59 PM [facility] Monocytes Absolute 0.63 0.26 - 1.07 x10E9/L 04/21/2018 2:59 PM [facility] Eosinophils Absolute 0.08 0 - 0.47 x10E9/L 04/21/2018 2:59 PM [facility] Basophils Absolute 0.03 0 - 0.08 x10E9/L 04/21/2018 2:59 PM [facility] Immature Granulocytes Absolute 0.02 0.00 - 0.06 x10E9/L 04/21/2018 2:59 PM [facility] nRBC Auto 0 /100 WBC 04/21/2018 2:59 PM [facility] Blood BLOOD SPECIMEN / Unknown Venipuncture / Unknown 04/21/2018 2:34 PM POLE FRAME CONSTRUCTION WORKER 04/21/2018 2:50 PM POLE FRAME CONSTRUCTION WORKER Robert Portillo MD LAB - HEMATOLOGY O RDERASANDY [facility] [address] [place] [address] * IMAGING/RADIOLOGY/XRAY RESULTS ORDER (02/05/2018 7:07 AM CDT) Only the most recent of2 resultswithin the time period is included. Anatomical Region Laterality Modality Other Narrative 02/05/2018 7:07 AM CDT Ordered by an unspecified provider. Scanned Document IMAGING * US PELVIS W TRANSVAG W DOP NON OB (02/04/2018 10:30 AM CDT) Anatomical Region Laterality Modality Pelvis Ultrasound Narrative 02/04/2018 10:30 AM CDT Yvrose Donis ? 02/04/2018 10:30 AM Documentation in digisonics. Mert Salmeron Jr., MD US ORDERABLES * SKIN TEST PPD - POINT OF CARE (08/31/2017) PPD neg Other MISCELLANEOUS SAMPLE S / Unknown 08/31/2017 Yue Clarke HR DIRECTOR-REVIEW CONSULTANT LAB - POINT OF CA RE ORDERABLES * HCG URINE QUALITATIVE - POINT OF CARE (IP) (09/10/2016 6:07 AM CDT) HCG Qual Urine Negative Negative [facility] POCT TESTING QC Verified Yes Yes [facility] POC T TESTING Urine URINE / Unknown 09/10/2016 6 :07 AM CDT Mert Salmeron Jr., MD LAB - POINT OF C ARE ORDERABLES [facility] POCT TESTING [address] [phone] * PATHOLOGY/GENETICS HISTORICAL-ONBASE (09/10/2016) 09/10/2016 Historical Provider LAB - CHEMISTRY O RDERABLES [place] [id number] [address] * CHLAMYDIA+GC LOI PAP VIAL (02/05/2016) Chlamydia trachomatis RNA TMA NOT DETECTED NOT DETECTED [facility] ([facility]) Neisseria gonorrhoeae RNA TMA NOT DETECTED NOT DETECTED [facility] ([facility]) See Note [facility] ([facility]) Comment: This test was performed using the APTIMA COMBO2 Assay ([employer] The analytical performance characteristics of this assay, when used to test SurePath specimens have been determined by [employer]. ?? Test Performed at: [facility] [id number] [place], [place] ??[id number] DACIA BEAR DO,MPH Cervical swab (specimen) 02/05/2016 02/06/2016 7:52 AM CDT [facility] ([facility]) - 02/08/2016 2:00 PM CDT Specimen Type->Cervical swab Mert Salmeron Jr., MD LAB - MICROBIOLO GY ORDERABLES Performing Organization Address City/State/[facility] Co de Phone Number [facility] ([facility]) * CULTURE URINE (02/05/2016) Only the most recent of2 resultswithin the time period is included. Urine Culture Routine SEE NOTE [facility] ([facility]) Comment: ??CULTURE, URINE, ROUTINE ?MICRO NUMBER: ?[id number] ??TEST STATUS: ? FINAL ??SPECIMEN SOURCE: ?? URINE ??SPECIMEN QUALITY: ??ADEQUATE ??RESULT: ?Multiple organisms present, each less than 10,000 ? CFU/mL. These organisms, commonly found on ? external and internal genitalia, are considered ? to be colonizers. No further testing performed. Test Performed at: [facility] [id number] [place], [place] ??[id number] DACIA BEAR DO,MPH Urine specimen (specimen) URINE / Unknown 02/05/2016 02/06/2016 7:52 AM CDT Narrative [facility] ([facility]) - 02/08/2016 2:00 PM CDT Specimen Type->Urine Mert Salmeron Jr., MD LAB - MICROBIOLO GY ORDERABLES Performing Organization Address City/[facility] Co de Phone Number [facility] ([facility]) * LAB RESULTS ORDER (03/11/2012 4:03 PM POLE FRAME CONSTRUCTION WORKER) Narrative 03/11/2012 4:03 PM POLE FRAME CONSTRUCTION WORKER Procedure Note Document, Scanned - 03/11/2012 4:03 PM CST Scanned Document LAB - THERAPEUTIC DR TRUJILLO MONITORING ORDERABLES * IP CONSULT TO NEONATOLOGY (03/05/2012 11:11 AM POLE FRAME CONSTRUCTION WORKER) Glory Rosales MD INPATIENT CONSULT OR DERABLES * BLOOD TYPE VERIFICATION (03/04/2012 12:00 AM POLE FRAME CONSTRUCTION WORKER) ABO Rh A Pos SEE BELOW [facility] Comment: Weak D testing is not performed at [facility] BLOOD SPECIMEN / Unknown 03/04/2012 03/04/2012 2:06 AM POLE FRAME CONSTRUCTION WORKER Hilaria Coffman MD LAB - BLOOD BANK ORD ERABLES Performing Organization Address [facility] Co de Phone Number [facility] [address] [place] [address] * CHLAMYDIA + GC AMPLIFIED PROBE (03/03/2012 11:45 PM POLE FRAME CONSTRUCTION WORKER) Chlamydia trachomatis Amplified Probe Negative [facility] GC Amplified Probe Negative [facility] Comment Amplified Probe [facility] Comment: Results based on detection/no detection of RNA by amplified method. Miscellaneous samples (specimen) PART OF UTERINE CERVIX / Unknown 03/03/2012 11:45 PM POLE FRAME CONSTRUCTION WORKER 03/04/2012 1:30 AM POLE FRAME CONSTRUCTION WORKER Narrative [facility] - 03/05/2012 2:45 PM POLE FRAME CONSTRUCTION WORKER Performed By [facility] ? [address] ? [place] [address] Glory Rosales MD LAB - MICROBIOLOGY O RDERABLES Performing Organization Address [facility] Co de Phone Number [facility] [address] [place] [address] * CULTURE STREP B (03/03/2012 11:45 PM POLE FRAME CONSTRUCTION WORKER) Result [facility] Comment: Final NO growth of beta-hemolytic ?? strep Group B Miscellaneous samples (specimen) MISCELLANEOUS SAMPLES / Unknown 03/03/2012 11:45 PM POLE FRAME CONSTRUCTION WORKER 03/04/2012 1:31 AM POLE FRAME CONSTRUCTION WORKER Narrative [facility] - 03/07/2012 11:34 AM POLE FRAME CONSTRUCTION WORKER Performed By [facility];[address];[place] [address] Glory Rosales MD LAB - MICROBIOLOGY O RDERABLES Performing Organization Address [facility] Co de Phone Number [facility] [address] [place] [address] * (ABNORMAL) BASIC METABOLIC PANEL (CALCIUM TOTAL) (03/03/2012 11:45 PM POLE FRAME CONSTRUCTION WORKER) Sodium 135(L) 136 - 145 mmol/L [facility] Potassium 3.3(L) 3.5 - 5.1 mmol/L [facility] Chloride 104 98 - 107 mmol/L [facility] BUN 5(L) 7 - 21.0 mg/dl [facility] Creatinine 0.35(L) 0.5 - 1.3 mg/dl [facility] Glucose 171(H) 65 - 105 mg/dl [facility] CO2 20(L) 22 - 30 mmol/L [facility] Calcium 7.1(L) 8.5 - 10.1 mg/dl [facility] eGFR by MDRD >60 >60 mL/min/1.7 3m2 [facility] Comment eGFR [facility] Comment: ? The eGFR does not apply to patients who are younger than ? 18 or older than 70. Blood specimen (specimen) BLOOD SPECIMEN / Unknown 03/03/2012 11:45 PM POLE FRAME CONSTRUCTION WORKER 03/04/2012 1:33 AM POLE FRAME CONSTRUCTION WORKER Glory Rosales MD LAB - CHEMISTRY ORDE RABRUFUS Performing Organization Address [facility] Co de Phone Number [facility] [address] [place] [address] Care Teams Senior Media Director Relationship Specialty Start Date End Date Melonie Ochoa MD PCP - General 02/04/18
--- OUTSIDE RECORDS SUMMARY | 2024-04-11 00:40 | XMS_ITS | Clinical Summary ---
Author Organization [facility] Address [address] [place] [address] Phone Care Team Providers Care Dough Catcher Name Role Phone ROBERTO RIVERA DO Herson Unavailable [phone] DEVONTE ARAUJO, ROGELIO Armas Primary Care Provider [phone] Reason for Visit and Chief Complaint PELVIC W/TVT Problems Includes: Problems addressed during this encounter and other active Problems All Visits Onset Date Resolved Date Provider Condition S tatus Reported Family History of Cancer 12/30/2010 [facility] Active Last Documented On 12/30/2010 1:51PM ; [facility] Note: mother of cervical [...] repeat in 3 days was phoned to [facility]. Last Documented On 4 3:35PM By SHERRI UNDERWOOD LPN ; [facility] Quasense 0.15-0.03 MG OR TABS 10/11/2013 Provider: Diagnosis: Last Documented On 10/11/2013 11:04AM By ANNY BOWMAN LPN ; [facility] Ibuprofen 600 MG OR TABS 07/04/2013 Provider: FERMIN WHITNEY MD Diagnosis: Last Documented On 07/18/2013 4:29PM By ANNY BOWMAN LPN ; [facility] HYDROcodone-Acetaminophen 5-325 MG OR TABS 06/07/2013 Provider: ROGELIO WHITNEY MD Diagnosis: Last Documented On 07/18/2013 4:29PM By ANNY BOWMAN LPN ; [facility] Medications Administered Includes: Administered Medications from this [...] Active Last Documented On 9 10:48AM ; [facility] Encounters Encounter Provider Location Date Check-In Time Check-Out Time Diagnosis PELVIC W/TVT ROGELIO WHITNEY MD [facility] INSOLE [employer] 4 2:56PM 3:18PM Insurance Includes: Active Insurance Policies Plan Name Member ID Group # Subscriber Relationship Effect tiffanie Dates 1 - [facility] [id number] CAROLINA Santana Clinical Notes Includes: Clinical Notes from this encounter No Clinical Notes Recorded
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
--- OUTSIDE RECORDS SUMMARY | 2024-04-11 00:40 | XMS_ITS | Clinical Summary ---
Author Organization [facility] Address [address] [place] [address] Phone Care Team Providers Care Mobile Sales Technician Name Role Phone NICOLE ANTHONY ROBERTO Herson Unavailable [phone] DEVONTE ARAUJO, ROGELIO Armas Primary Care Provider [phone] Reason for Visit and Chief Complaint PELVIC W/TVT Problems Includes: Problems addressed during this encounter and other active Problems All Visits Onset Date Resolved Date Provider Condition S salinaus Reported Family History of Cancer 12/30/2010 [facility] Active Last Documented On 12/30/2010 1:51PM ; [facility] Note: mother of cervical cancer Plan of Treatment Pending Tests Order Diagnosis Results Due Ordering P victoria U/S @ ANISHA - OB or JV U/S PTVT US OVARIAN CYST NEC/NOS 11/14/13 ROGELIO WHITNEY MD Last Documented On 4 11:53AM ; [facility] Assessments Includes: Assessments from this encounter No Assessments Recorded Medical Equipment - Implanted Devices Includes: Current Devices No Medical Equipment Recorded Medications Includes: Medications discussed during this encounter and other current Medications Current Medications (continue as prescribed) Diflucan 150 MG OR TABS 10/26/2013 Provider: ROGELIO WHITNEY MD Diagnosis: take one po today and repeat in 3 days was phoned to [facility]. Last Documented On 4 3:35PM By SHERRI UNDERWOOD LPN ; [facility] Quasense 0.15-0.03 MG OR TABS 10/11/2013 Provider: Diagnosis: Last Documented On 10/11/2013 11:04AM By ANNY BOWMAN LPN ; [facility] Ibuprofen 600 MG OR TABS 07/04/2013 Provider: FERMIN WHITNEY MD Diagnosis: Last Documented On 07/18/2013 4:29PM By ANNY BOWMAN LPN ; [facility] HYDROcodone-Acetaminophen 5-325 MG OR TABS 06/07/2013 Provider: ROGELIO WHITNEY MD Diagnosis: Last Documented On 07/18/2013 4:29PM By ANNY BOWMAN LPN ; [facility] Medications Administered Includes: Administered Medications from this [...] Active Last Documented On 9 10:48AM ; [facility] Encounters Encounter Provider Location Date Check-In Time Check-Out Time Diagnosis PELVIC W/TVT ROGELIO WHITNEY MD [facility] GOLF CADDY 4 2:20PM 2:39PM Insurance Includes: Active Insurance Policies Plan Name Member ID Group # Subscriber Relationship Effect tiffanie Dates 1 - [facility] [id number] CAROLINA Santana Clinical Notes Includes: Clinical Notes from this encounter No Clinical Notes Recorded
--- OUTSIDE RECORDS SUMMARY | 2024-04-11 00:40 | XMS_ITS | Encounter Summary ---
Author Organization [facility] Address [address] [place] [address] Care Team Providers Care Consulting Solution Manager Name Role Phone Melonie Ochoa MD Primary Care Provider [phone] Reason for Visit * Auth/Cert Specialty Diagnoses / Procedures Referred By Yanni weaver Referred To Contact Diagnoses Diagnosis unknown Diagnosis unknown [R69] Procedures LAPAROSCOPIC FULGURATION/EXCISION ENDOMETRIOSIS WITH LASER Referral ID Status Reason Start Date Expiration Date Visits Re quested Visits Authorized [id number] 1 1 Encounter Details Date Type Department Care Team (Late st Contact Info) Description 05/04/2018 7:30 AM SLOT FLOOR PERSON - 05/04/2018 10:[address] [facility] Surgery [facility] [address] [place] [address] Robert Portillo MD [address] [place] [id number] DIAGNOSTIC LAPAROSCOPY, EXCISION OF ENDOMETRIOSIS WITH CO2 LASER Surgery Details Date/Time Status Location OR Service Patient Class Case Class Case Type Trauma Case? 05/04/2018 7:30 AM Posted [facility] OR 14 Gynecology Surgery Day Care Elective > 5 days Panel 1 Procedure LRB Anes Op Region Wound Class Comments DIAGNOSTIC LAPAROSCOPY, EXCISION OF ENDOMETRIOSIS WITH CO2 LASER Left General Abdomen Clean Contaminated CYSTOSCOPY WITH STENT PLACEMENT Bilateral General Bladder Clean Contaminated LAPAROSCOPIC OOPHORECTOMY Left General Abdomen Ade n Contaminated Surgeon Surgeon Role Service Panel Robert Portillo MD Primary Gynecology 1 Special Needs NEEDS AIRSEAL--NO REP NEEDED PER OFFICE ([facility]) / NEEDS [facility] FOR 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 (MICHELLE) NOTIFIED, CONFIRMATION # [id number]--35/16 CT documented in this encounter Social History Tobacco Use Types Packs/Day Years [...] Sign Reading Time Taken Comments Blood Pressure 114/56 05/04/2018 9:58 AM SLOT FLOOR PERSON Pulse 85 05/04/2018 9:59 AM SLOT FLOOR PERSON Temperature 36 ??C (96.8 ??F) 05/04/2018 9:50 AM SLOT FLOOR PERSON Respiratory Rate 17 05/04/2018 9:59 AM SLOT FLOOR PERSON Oxygen Saturation 100% 05/04/2018 9:59 AM SLOT FLOOR PERSON Inhaled Oxygen Concentration - - Weight 95.3 kg (210 lb) 05/04/2018 6:13 AM SLOT FLOOR PERSON Height 168.9 cm (5' 6.5 ) 05/04/2018 6:13 AM SLOT FLOOR PERSON Body Mass Index 33.39 05/04/2018 6:13 AM SLOT FLOOR PERSON documented in this encounter Functional Status Functional [...] fluticasone propionate (FLONASE) 50 MCG/ACT nasal spray Savannah 1 [place]annah into each nostril once daily 10/22/2015 ibuprofen [...] small amt. Of urine. Back to bed. FLOOR PERSON * Chandni Hummel RN - 05/04/2018 10:22 AM CST ATTEMPTED BED JENKINS UNABLE TO VOID AT THIS TIME. 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 HYDROcodone-acetaminophen [...] results for input(s): ABORH in the last 67565 hours. Recent Labs Component Name 04/21/18 1434 09/11/16 0301 09/02/16 0940 WBC 8.1 10.6 7.0 HGB 13.5 11.7* 14.0 HCT 39.1 34.3* 40.7 PLTCOUNT 305 223 248 No results for input(s): SODIUM, POTASSIUM, CHLORIDE, CO2, BUN, CREATININE, GLUCOSE, CALCIUM in thelast 73650 hours. Assessment/Plan: 37 y.o. with: Endometriosis, status [...] to OR when ready. Robert Portillo MD FLOOR PERSON documented in this encounter OR Notes * [...] of it. Robert Portillo MD professor of religious studies [facility] Endometriosis, Minimally Invasive Gynecology FLOOR PERSON * Brief Op Note - Susan Davila [...] bilateral ureteral guidewires Surgeon: Robert Portillo MD Bilingual Nanny: Susan Davila DO Type of anesthesia: General [...] follow Susan Davila DO 05/04/2018 9:51 AM FLOOR PERSON documented in this encounter Plan of Treatment Not on file documented as of this encounter Procedures Procedure Name Priority Date/Time Associated Diagnosis Comments CARDIAC RHYTHM STRIP ORDER 05/06/2018 9:55 PM SLOT FLOOR PERSON APHERESIS/TRANSFUSIO N ORDER 05/06/2018 9:55 PM SLOT FLOOR PERSON PATHOLOGY TISSUE EXAM (STL) Routine 05/04/2018 8:44 AM SLOT FLOOR PERSON Diagnosis unknown LAPAROSCOPIC SALPINGECTOMY AND/OR OOPHORECTOMY 05/04/2018 7:23 AM SLOT FLOOR PERSON Diagnosis unknown Special Needs NEEDS AIRSEAL--NO REP NEEDED PER OFFICE ([facility]) / NEEDS [facility] FOR 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 (Issue) NOTIFIED, CONFIRMATION # [id number]--10/16 CT CYSTOSCOPY WITH INSERTION URETERAL STENT 05/04/2018 7:23 AM SLOT FLOOR PERSON Diagnosis unknown Special Needs NEEDS AIRSEAL--NO REP NEEDED PER OFFICE ([facility]) / NEEDS [facility] FOR 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 (Issue) NOTIFIED, CONFIRMATION # [id number]--91/16 CT LAPAROSCOPIC FULGURATION/EXCISION LESION PELVIC/OVARY (LASER) 05/04/2018 7:23 AM SLOT FLOOR PERSON Diagnosis unknown Special Needs NEEDS AIRSEAL--NO REP NEEDED PER OFFICE ([facility]) / NEEDS [facility] FOR 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 (Issue) NOTIFIED, CONFIRMATION # [id number]--92/16 CT documented in this encounter Results * CARDIAC RHYTHM STRIP ORDER (05/06/2018 9:55 PM SLOT FLOOR PERSON) Narrative 05/06/2018 9:55 PM SLOT FLOOR PERSON Ordered by an unspecified provider. Scanned Document CARDIAC SERVICES ORD ERABLES * APHERESIS/TRANSFUSION ORDER (05/06/2018 9:55 PM SLOT FLOOR PERSON) Narrative 05/06/2018 9:55 PM SLOT FLOOR PERSON Ordered by an unspecified provider. Scanned Document NURSING - VITAL SIGN S AND ASSESSMENT * GROSS + MICRO EXAM (STL) (05/04/2018 8:44 AM SLOT FLOOR PERSON) Case Report Surgical Pathology Report ? Case: [id number] ? Authorizing Provider: ??Robert Portillo MD ?Collected: ? 05/04/2018 08:44 AM ? Ordering Location: ? [facility] ? Received: ?05/04/2018 09:59 AM ? Pathologist: ? Danya Mtz MD ? Specimens: ?? A) - Adhesions, SIGMOID ADHESION ? B) - Ovary, LEFT OVARY ? C) - Cul De Sac , LEFT POSTERIOR CUL-DE-SAC ? 2018 4:10 PM [facility] Final Diagnosis A: Soft tissue, sigmoid adhesion, excision: - Fibroconnective tissue with vascular congestion - Negative for endometriosis B: Ovary, left, oophorectomy: - Multiple cystic follicles C: Cul De Sac, left posterior, excision: - Negative for endometriosis 2018 4:10 PM [facility] Gross Description The tissue is received [...] areas or papillary excrescences are grossly appreciated. Interior Horticulturist sections are submitted in cassettes B1-B3. C. The third container is additionally labeled left posterior cul-de-sac and contains an irregular layer of purple-yellow fibromembranous tissue measuring 1.4 x 0.9 x 0.2 cm. Sectioning displays an unremarkable cut surface. The specimen is submitted entirely in cassette C1. XAVI/gerard 2018 4:10 PM [facility] Microscopic Description There is no evidence of atypia or malignancy. SD 2018 4:10 PM [facility] Disclaimer All histochemical and/or immunohistochemical results are interpreted with controls that demonstrate appropriate staining reactions before reporting results. Note on use of immunocytochemistry reagents: This test was developed and its performance characteristic determined by [facility], Department of Laboratory Medicine. It has not been cleared or approved by the U.S. Food and Drug Administration (FDA). The FDA has determined that such clearance or approval is not necessary. The test is used for clinical purpose. It should not be regarded as investigational or for research. This laboratory is certified to perform high complexity testing. 2018 4:10 PM SLOT FLOOR PERSON [facility] Embedded Images 2018 4:10 PM SLOT FLOOR PERSON [facility] Pathology/Cytology ADHESION / Unknown 8:44 AM SLOT FLOOR PERSON 05/04/2018 9:59 AM SLOT FLOOR PERSON Miscellaneous samples (specimen) ENTIRE OVARY / Unknown 05/04/2018 9:00 AM SLOT FLOOR PERSON 05/04/2018 9:59 AM SLOT FLOOR PERSON Miscellaneous samples (specimen) ENTIRE RECTOUTERINE POUCH / Unknown 05/04/2018 9:01 AM SLOT FLOOR PERSON 05/04/2018 9:59 AM SLOT FLOOR PERSON Robert Portillo MD LAB - PATHOLOGY/CY TOLOGY ORDERABLES Performing Organization Address City/State/[facility] Co de Phone Number [facility] [address] [place] [address] documented in this encounter Visit Diagnoses Diagnosis Diagnosis unknown Other unknown and unspecified cause of morbidity or mortality Diagnosis unknown Other unknown and unspecified cause of morbidity or mortality documented in this encounter Administered Medications Inactive Administered Medications - up to 3 most recent administrations Medication Order MAR Action Action Date Dose Rate Site 0.9% nacl irrigation solution PRN, Starting on Thu05/04/18 at 0918, Until Thu05/04/18 at 0959, Intra-op $ Given 05/04/2018 9:18 AM SLOT FLOOR PERSON 1,250 mL Operative Site 0.9% nacl irrigation solution PRN, Starting on Thu05/04/18 at 0930, Until Thu05/04/18 at 0959, Intra-op $ Given 05/04/2018 9:30 AM SLOT FLOOR PERSON 1,750 mL acetaminophen (TYLENOL) tablet 1,000 mg 1,000 mg, Oral, ONCE, 1 dose, On Thu05/04/18 at 0600, Pre-op $ Given 05/04/2018 6:16 AM SLOT FLOOR PERSON 1,000 mg bupivacaine PF (MARCAINE PF) 0.25 % injection PRN, Starting on Thu05/04/18 at 0931, Until Thu05/04/18 at 0959, Intra-op $ Given 05/04/2018 9:31 AM SLOT FLOOR PERSON 30 mL lactated ringers infusion at 20 mL/hr, Intravenous, PRE-OP CONTINUOUS, Starting on Thu05/04/18 at 0600, Until Thu05/04/18 at 1410, Pre-op $ New Bag/Syringe 05/04/2018 9:36 AM SLOT FLOOR PERSON $ New Bag/Syringe 05/04/2018 6:17 AM SLOT FLOOR PERSON 20 mL/ hr lidocaine (XYLOCAINE MPF) 1 % injection 0.2 mL 0.2 mL, Infiltration, PRE-OP MULTIPLE, 3 doses, Starting on Thu05/04/18 at 0558, Until Thu05/04/18 at 1410, May be used (0.2 ml locally to anesthetize prior to insertion)., Pre-op $ Given 05/04/2018 6:16 AM SLOT FLOOR PERSON 0.2 mL oxyCODONE-acetaminophen (PERCOCET) 5-325 MG tablet 2 tablet 2 tablet, Oral, EVERY 6 HOURS, First dose on Thu05/04/18 at 1200, Until Discontinued, Post-op $ Given 05/04/2018 11:07 AM SLOT FLOOR PERSON 1 tablet ropivacaine (NAROPIN ON-Q) 0.2% in [...] 1.5mg/72 hours. $ Applied 05/04/2018 6:16 AM SLOT FLOOR PERSON 1 mg Behind Left Ear scopolamine patch placement confirmation Transdermal, 2 TIMES DAILY, 730 doses, First dose on Thu05/04/18 at 0900, Last dose on Thu05/03/19 at 2100, Patient has a patch to be confirmed on transition to inpatient and 2 times daily. documented in this encounter Active and Recently Administered Medications Times are shown in SLOT FLOOR PERSON. Scheduled Medication Order 05/02/2018 05/03/2018 05/04/2018 acetaminophen [...] ($ Given - Prov ider: Brigid Rees, DOOR TO DOOR SELLING DISTRIBUTOR-DIGITAL MEDIA DIRECTOR) lidocaine (XYLOCAINE MPF) 1 % injection 0.2 [...] Pleitez RN)0919 (Anesthesia Volume Adjustment - Provider: BENNY Corcoran)0936 ($ New Bag/Syringe - Provider: BENNY Corcoran) ropivacaine (NAROPIN ON-Q) 0.2% in ELASTOMERIC PUMP [...] daily. documented in this encounter Care Teams Consulting Solution Manager Relationship Specialty Start Date End Date Melonie Ochoa MD PCP - General 02/04/18 documented as of this encounter
--- OUTSIDE RECORDS SUMMARY | 2024-04-11 00:40 | XMS_ITS | Encounter Summary ---
Author Organization [facility] Address [address] [place] [address] Care Team Providers Care Crib Pad Maker Name Role Phone Melonie Ochoa MD Primary Care Provider [phone] Encounter Details Date Type Department Care Team (Late st Contact Info) Description 02/19/2018 Orders Only [facility] [address] [place] [address] Mert Salmeron Jr., MD [address] [place], [place] [id number] Dysmenorrhea ; Chronic pelvic pain in female; Endometriosis Social History Tobacco Use Types Packs/Day Years Used Date Smoking Tobacco: Never Smokeless Tobacco: Never Alcohol Use Standard Drinks/Week Comments No 0 (1 standard drink = 0.6 oz pur e alcohol) Sex and Gender Information Value Date Recorded Sex Assigned at Not on file Gender Identity Not on file Sexual Orientation Not on file documented as of this encounter Functional Status Functional Status Response [...] No 09/10/2016 documented as of this encounter Plan of Treatment Not on file documented as of this encounter Visit Diagnoses Diagnosis Dysmenorrhea- Primary Chronic pelvic pain in female Unspecified symptom associated with female genital organs Endometriosis documented in this encounter Care Teams Crib Pad Maker Relationship Specialty Start Date End Date Melonie Ochoa MD PCP - General 02/04/18 documented as of this encounter
--- OUTSIDE RECORDS SUMMARY | 2024-04-11 00:40 | XMS_ITS | Encounter Summary ---
Author Organization [facility] Address [address] [place] [address] Care Team Providers Care Human Resource Statistician Name Role Phone Melonie Ochoa MD Primary Care Provider [phone] Reason for Visit * Reason Comments Follow-up Encounter Details Date Type Department Care Team (Late st Contact Info) Description 04/21/2018 4:15 PM SEGMENTAL PAVING SUPERVISOR Office Visit [facility] Obstetrics Gynecology and Women's Health [address] [place] [address] Robert Portillo MD [address] [place] [address] Chronic pelvic pain in female (Primary Dx); Endometriosis Social History Tobacco Use Types Packs/Day [...] Sign Reading Time Taken Comments Blood Pressure 102/80 04/21/2018 4:20 PM SEGMENTAL PAVING SUPERVISOR Pulse - - Temperature - - Respiratory Rate - - Oxygen Saturation - - Inhaled Oxygen Concentration - - Weight 95.3 kg (210 lb) 04/21/2018 4:20 PM SEGMENTAL PAVING SUPERVISOR Height 168.9 cm (5' 6.5 ) 04/21/2018 4:20 PM SEGMENTAL PAVING SUPERVISOR Body Mass Index 33.39 04/21/2018 4:20 PM SEGMENTAL PAVING SUPERVISOR documented in this encounter Functional Status Functional [...] * Patient Instructions* Robert Portillo MD - 04/21/2018 4:34 PM SEGMENTAL PAVING SUPERVISOR [email or web address] [facility]/fertility How to Contact Us Between Office Visits If you need to make an appointment with your doctor, please do so before you leave today. If you need to check your schedule prior to making your next appointment, please call us at [phone] as soon as possible to schedule. For scheduling routine appointments, requesting refills or leaving a message for your doctor, the office phone is [phone]. You will be given options to get to the assistance you need. Phone lines are open from 8:00 am to 4:30 pm Thursday through Thursday. All prescription refills must be requestedduring regular office phone hours. Our fax number is [phone]. After hours urgent calls that cannot wait until phone lines are open on the next business day are given to the physician education supervisor. Please call [phone]. Identify yourself as a patient in our practice and give the weight count operator your doctor's name. The weight count operator will contact the physician education supervisor to address your concerns. Thank you for enrolling in [facility]. [facility] allows you to send messages to your health care team, view your test results, renew your prescriptions, request appointments, and more. How Do I Sign Up? 1. In the address bar of your Internet browser, type the following address: [email or web address] 2. Click on the Sign Up Now link in the New User? box. 3. Enter your [facility] Access Code exactly as it appears below. You will not need to use this code after you???ve completed the sign-up process. If you do not sign up before the expiration date, you must request a new code. [facility] Access Code: [email or web address] 4. Enter the last four digits of your Social Security Number (xxxx) and Date of (mm/dd/yyyy) as indicated and click Next. 5. Create a [facility] ID. This will be your [facility] login ID and cannot be changed, so think of one that is secure and easy to remember. 6. Create a [facility] password. (You can change your password at any time.) 7. Enter your Password Reset Question and Answer. (This will be used if you forget your password inthe future.) 8. Enter your e-mail address. (You will receive e-mail notifications when new information is available in [facility].) 9. Click Sign- Up. After accepting the Terms and Conditions you will be able to view your medical record. Additional Information If you have questions or problems signing up, call the [facility] Team at [phone]. Pleasenote that [facility] is not designed to address urgent needs. For medical emergencies, dial 911. ENTAL PAVING SUPERVISOR documented in this encounter Progress Notes * Robert Portillo MD - 04/21/2018 4:29 PM CST 37 y.o. female here for follow-up visit for pre-op she has hx of + endometriosis Now requesting LO, here today for PE Given NSAIDS to take today Pt is still requesting removal of left ovary. PHYSICAL: General: Within normal limits. Well appearing. Normal affect. Skin: Within normal limits. ENT: Thyroid within normal limits. No lymphadenopathy. Lungs: Within normal limits. Clear bilaterally. Cardiovascular: Regular rate and rhythm. Breast: Deferred Abdominal: Within normal limits. Scars noted. No palpable masses. Pain 6/10 in LLQ. PELVIC: External genitalia: Within normal limits. modearte pelvic floor tension. Cervix: Surgically absent Uterus: Surgically absent There is tenderness of left vaginal cuff\ There is some tenderness to palpation of the vaginal sidewalls. Adnexa: not felt due to BMI Rectovaginal exam: No palpable masses. Guaiac not done. ASSESSMENT: Endometriosis, status post optimal excision, total laparoscopic hysterectomy with bilateral salpingectomy and right oophorectomy, appendectomy in August 2016 Now left-sided pain for 1 month Patient is adamantly requesting to have a left oophorectomy Chronic pelvic pain PLAN: Surgical plan is diagnostic laparoscopy, excision of endometriosis with carbon dioxide laser, left oophorectomy, Cystoscopy possible stent placement. Discussed differential diagnosis of pelvic pain. Discussed possibility of endometriosis. Discussed management options including hormonal suppression versus [...] of which was counseling. Patient verbalizes understanding. ENTAL PAVING SUPERVISOR documented in this encounter Plan of Treatment Not on file documented as of this encounter Visit Diagnoses Diagnosis Chronic pelvic pain in female- Primary Unspecified symptom associated with female genital organs Endometriosis documented in this encounter Care Teams Human Resource Statistician Relationship Specialty Start Date End Date Melonie Ochoa MD PCP - General 02/04/18 documented as of this encounter
--- OUTSIDE RECORDS SUMMARY | 2024-04-11 00:40 | XMS_ITS | Encounter Summary ---
Author Organization [facility] Address [address] [place] [address] Care Team Providers Care Tool Salvage Worker Name Role Phone Melonie Ochoa MD Primary Care Provider [phone] Encounter Details Date Type Department Care Team (Late st Contact Info) Description 03/09/2018 Orders Only [facility] Obstetrics Gynecology and Women's Health [address] [place] [address] Mert Salmeron Jr., MD [address] [facility] [address] [place], [place] [id number] Chronic pelvic pain in female Social History [...] organs documented in this encounter Care Teams Tool Salvage Worker Relationship Specialty Start Date End Date Melonie Ochoa MD PCP - General 02/04/18 documented as of this encounter
--- OUTSIDE RECORDS SUMMARY | 2024-04-11 00:40 | XMS_ITS | Clinical Summary ---
Author Organization [facility] Address [address] [place] [address] Phone Care Team Providers Care Yarn Man Name Role Phone NICOLE ANTHONY ROBERTO Herson Unavailable [phone] DEVONTE ARAUJO, ROGELIO Armas Primary Care Provider [phone] Reason for Visit and Chief Complaint PELVIC W/TVT Problems Includes: Problems addressed during this encounter and other active Problems All Visits Onset Date Resolved Date Provider Condition S tatus Reported Family History of Cancer 12/30/2010 [facility] Active Last Documented On 12/30/2010 1:51PM ; [facility] Note: mother of cervical cancer Plan of Treatment Pending Tests Order Diagnosis Results Due Ordering P victoria U/S @ [facility] - OB or JV U/S PTVT US Fem Genital Symptoms NOS 11/15/13 ROGELIO WHITNEY MD Last Documented On 4 1:40PM ; [facility] Assessments Includes: Assessments from this encounter No Assessments Recorded Medical Equipment - Implanted Devices Includes: Current Devices No Medical Equipment Recorded Medications Includes: Medications discussed during this encounter and other current Medications Current Medications (continue as prescribed) Diflucan 150 MG OR TABS 10/26/2013 Provider: ROGELIO WHITNEY MD Diagnosis: take one po today and repeat in 3 days was phoned to [facility]. Last Documented On 4 3:35PM By SHERRI UNDERWOOD LPN ; [facility] Quasense 0.15-0.03 MG OR TABS 10/11/2013 Provider: Diagnosis: Last Documented On 10/11/2013 11:04AM By ANNY BOWMAN LPN ; [facility] Ibuprofen 600 MG OR TABS 07/04/2013 Provider: FERMIN WHITNEY MD Diagnosis: Last Documented On 07/18/2013 4:29PM By ANNY BOWMAN LPN ; [facility] HYDROcodone-Acetaminophen 5-325 MG OR TABS 06/07/2013 Provider: ROGELIO WHITNEY MD Diagnosis: Last Documented On 07/18/2013 4:29PM By ANNY BOWMAN LPN ; [facility] Medications Administered Includes: Administered Medications from [...] Active Last Documented On 9 10:48AM ; [facility] Encounters Encounter Provider Location Date Check-In Time Check-Out Time Diagnosis PELVIC W/TVT ROGELIO WHITNEY MD [facility] SR VICE PRESIDENT 4 8:53AM 11:59PM Insurance Includes: Active Insurance Policies Plan Name Member ID Group # Subscriber Relationship Effect tiffanie Dates 1 - [facility] [id number] CAROLINA Santana Clinical Notes Includes: Clinical Notes from this encounter No Clinical Notes Recorded
--- OUTSIDE RECORDS SUMMARY | 2024-04-11 00:40 | XMS_ITS | Clinical Summary ---
Author Organization [facility] Address [address] [facility] [place] [address] Care Team Providers Care Gas Scrubber Operator Name Role Phone Melonie Ochoa MD Primary Care Provider [phone] Source Comments [facility],non-owned Affiliates and Associated Physician Practices is amultiple site organization consisting of ambulatory clinics and hospital sitesin [place], [place], [place] and [place]. This disclosure is being madepursuant to the Care Everywhere program and may not contain all information available regarding this patient. Last updated 18.[facility] Allergies No known active allergies Medications * Be aware that medications may not be up to date on this document. Alwaysverify current medications with the patient. Medication Sig Dispensed Refills Start Date End Date Status cetirizine (ZYRTEC) 10 MG tablet Take 10 mg by mouth once daily Active fluticasone propionate (FLONASE) 50 MCG/ACT nasal spray [place] 1 [place] into each nostril once daily 10/22/2015 Active polyethylene glycol 3350 (GLYCOLAX) powder Take 17 g by mouth once daily 500 g 09/11/2016 Active ibuprofen (MOTRIN) 600 MG tablet Take 1 tablet by mouth every 6 hours 40 tablet 05/04/2018 Active oxyCODONE-acetami nophen (PERCOCET) 5-325 MG tablet Take 2 tablets by mouth every 6 hours Do not exceed 3 grams of acetaminophen (TYLENOL) daily. 28 tablet 05/04/2018 Active Additional Information Patient not taking.Reported on 05/14/2018 docusate sodium (COLACE) 100 MG capsule Take 1 capsule by mouth 2 times daily 60 capsule 05/04/2018 Active Active Problems Problem Noted Date Diagnosed Date Pelvic joint pain, left 02/04/2018 Dysmenorrhea 09/10/2016 Chronic pelvic pain in female 09/10/2016 Pain in joint involving right pelvic region and thigh 09/10/2016 Endometriosis 09/10/2016 Supervision of high-risk 03/03/2012 Overview (03/07/2012): GCT 147 GTT 84/133/108/77 A+/I/-/-, NR GBS neg 03/03/12 labor 03/03/2012 Dysuria Social History Tobacco Use [...] Comments Blood Pressure 100/68 05/14/2018 4:41 PM TRANSFER MACHINE OPERATOR Pulse 83 05/04/2018 10:45 AM TRANSFER MACHINE OPERATOR Temperature 36.3 ??C (97.4 ??F) 05/04/2018 10:[address] Respiratory Rate 16 05/04/2018 10:45 AM TRANSFER MACHINE OPERATOR Oxygen Saturation 100% 05/04/2018 10:45 AM TRANSFER MACHINE OPERATOR Inhaled Oxygen Concentration - - Weight 95.3 kg (210 lb) 05/14/2018 4:41 PM TRANSFER MACHINE OPERATOR Height 167.6 cm (5' 6 ) 05/14/2018 4:41 PM TRANSFER MACHINE OPERATOR Body Mass Index 33.89 05/14/2018 4:41 PM TRANSFER MACHINE OPERATOR Plan of Treatment Health Maintenance Due Date Last Done Comments COLOGUARD (AGES 45-75) - COL ON CA SCREENING 1978 COLON MONITORING 1978 COLONOSCOPY - COLON CA SCREENING 1978 CT COLONOGRAPHY - COLON CA SCREENING 1978 Colorectal Cancer Screening 1978 FIT - COLON CA SCREENING 1978 FLEX SIG - COLON CA SCREENING 1978 LIPID TESTING 1978 MAMMOGRAM 1978 HIV SCREENING 1993 HEPATITIS C SCREENING 04/30/1996 DTAP/TDAP/TD VACCINES (1 - Tdap) 1997 HEPATITIS B VACCINE (1 of 3 - 19+ 3-dose series) 1997 SCREENING FOR DIABETES 05/14/2018 03/03/2012 DEPRESSION SCREENING 04/13/2023 COVID-19 VACCINE (1 2023-2 5 season) 2023 INFLUENZA VACCINE (#1) 2023 ZOSTER VACCINE (1 of 2) 2028 HIB VACCINE Aged Out No longer eligi ble based on patient's age to complete this topic HPV VACCINE Aged Out No longer eligi ble based on patient's age to complete this topic MENINGOCOCCAL VACCINE Aged Out No kathia raven eligible based on patient's age to complete this topic PNEUMOCOCCAL VACCINE Aged Out No long er eligible based on patient's age to complete this topic Medical Devices Implanted Type Area Histology Teacher Device Identifier Shelf Expiration Date Model / Serial / Lot Sys Drg Dlv T Onq Pnbstr Slskr Tpl Xpd Implanted:Qty: 1 on 05/04/2018 by Robert Portillo MD at [facility] Abdomen [employer] 05/12/2020 [id number] / / Procedures Procedure Name Priority Date/Time Associated Diagnosis Comments BASIC METABOLIC PANEL (CALCIUM TOTAL) STAT 03/03/2012 11:45 PM TRANSFER MACHINE OPERATOR from Last 3 Months or Most Recently Relevant to Health Maintenance Results * (ABNORMAL) BASIC METABOLIC PANEL (CALCIUM TOTAL) (03/03/2012 11:45 PM TRANSFER MACHINE OPERATOR) Sodium 135(L) 136 - 145 mmol/L [facility] Potassium 3.3(L) 3.5 - 5.1 mmol/L [facility] Chloride 104 98 - 107 mmol/L [facility] BUN 5(L) 7 - 21.0 mg/dl [facility] Creatinine 0.35(L) 0.5 - 1.3 mg/dl [facility] Glucose 171(H) 65 - 105 mg/dl [facility] CO2 20(L) 22 - 30 mmol/L [facility] Calcium 7.1(L) 8.5 - 10.1 mg/dl [facility] eGFR by MDRD >60 >60 mL/min/1.7 3m2 [facility] Comment eGFR [facility] Comment: ? The eGFR does not apply to patients who are younger than ? 18 or older than 70. Blood specimen (specimen) BLOOD SPECIMEN / Unknown 03/03/2012 11:45 PM TRANSFER MACHINE OPERATOR 03/04/2012 1:33 AM TRANSFER MACHINE OPERATOR Glory Rosales MD LAB - CHEMISTRY [facility] [address] [place] [address] from Last 3 Months or Most Recently Relevant to Health Maintenance Advance Directives * Full Code (Latest Code Status on File) Date Activated Date Inactivated Comments 09/10/2016 1:47 PM 09/11/2016 1:51 PM * FULL RESUSCITATION Date Activated Date Inactivated Comments 03/03/2012 11:43 PM 03/05/2012 6:42 PM Care Teams Gas Scrubber Operator Relationship Specialty Start Date End Date Melonie Ochoa MD PCP - General 02/04/18
--- OUTSIDE RECORDS SUMMARY | 2024-04-11 00:40 | XMS_ITS | Encounter Summary ---
Author Organization [facility] Address [address] [place] [address] Care Team Providers Care Ordering Box Operator Name Role Phone Melonie Ochoa MD Primary Care Provider [phone] Encounter Details Date Type Department Care Team (Latest Contact Info) Description 04/21/2018 2:24 PM MUNITIONS FACTORY WORKER - 04/21/2018 11:59 PM [facility] Hospital Encounter [facility] Pret[facility] Center [address] [place] [address] Robert Portillo MD [address] [place] [address] Discharge Disposition: Home or Self Care Social [...] fluticasone propionate (FLONASE) 50 MCG/ACT nasal spray [place] 1 [place] into each nostril once daily 10/22/2015 ibuprofen (MOTRIN) 600 MG tablet Take 1 tablet by mouth every 6 hours 40 tablet 05/04/2018 oxyCODONE-acetaminop hen (PERCOCET) 5-325 MG tablet Take 2 tablets by mouth every 6 hours Do not exceed 3 grams of acetaminophen (TYLENOL) daily. 28 tablet 05/04/2018 polyethylene glycol 3350 (GLYCOLAX) powder Take 17 g by mouth once daily 500 g 09/11/2016 cyclobenzaprine (FLEXERIL) 5 MG tablet Take 1 Tab by mouth 3 times daily as needed 30 Tab 09/11/2016 05/04/2018 docusate sodium (COLACE) 100 MG capsuleIndications:C hronic pelvic pain in female Take 1 Cap by mouth 2 times daily 60 Cap 09/11/2016 05/14/2018 HYDROcodone-acetamin ophen (NORCO) 5-325 MG tablet Take 1 tablet by mouth every 4 hours as needed for Pain 28 tablet 02/19/2018 05/04/2018 oxyCODONE-acetaminop hen (PERCOCET) 5-325 MG tablet Take 1-2 tablets every 6 hours as needed for pain, by mouth. 28 tablet 03/09/2018 05/04/2018 traMADol (ULTRAM) 50 MG tablet Take 1 Tab by mouth every 6 hours 40 Tab 09/11/2016 05/04/2018 documented as of this encounter Plan of Treatment Not on file documented as of this encounter Procedures Procedure Name Priority Date/Time Associated Diagnosis Comments TYPE + SCREEN PANEL Pre-Op 04/21/2018 2 :34 PM MUNITIONS FACTORY WORKER Pre-op testing CBC W AUTO DIFFERENTIAL STAT 04/21/2018 2:34 PM MUNITIONS FACTORY WORKER Pre-op testing documented in this encounter Results * TYPE + SCREEN PANEL (04/21/2018 2:34 PM MUNITIONS FACTORY WORKER) ABO A 04/21/2018 3:[address] [facility] Rh Type Positive 04/21/2018 3:[address] [facility] Comment:History checked. Antibody Screen Negative 04/21/2018 3:36 PM MUNITIONS FACTORY WORKER [facility] Blood Bank BLOOD SPECIMEN / Unknown Venipuncture / Unknown 04/21/2018 2:34 PM MUNITIONS FACTORY WORKER 04/21/2018 2:50 PM MUNITIONS FACTORY WORKER Robert Portillo MD LAB - BLOOD BANK O RDERABLES [facility] [address] [id number] [phone] * CBC W AUTO DIFFERENTIAL (04/21/2018 2:34 PM MUNITIONS FACTORY WORKER) WBC 8.1 4.4 - 10.7 x10E9/L 04/21/2018 2:[address] [facility] WBC Corrected x10E9/L 04/21/2018 2:[address] [facility] RBC 4.42 3.80 - 5.20 x10E12/L 04/21/2018 2:[address] [facility] Hemoglobin 13.5 12.0 - 15.6 gm/dL 04/21/2018 2:[address] [facility] Hematocrit 39.1 35.9 - 45.5 % 04/21/2018 2:[address] [facility] MCV 88.5 80.7 - 98.3 fl 04/21/2018 2:[address] [facility] MCH 30.5 26.7 - 34.0 pg 04/21/2018 2:[address] [facility] MCHC 34.5 30.8 - 35.9 gm/dL 04/21/2018 2:[address] [facility] Platelet Count 305 153 - 416 x10E9/L 04/21/2018 2:[address] [facility] RDW-CV 12.1 12.1 - 14.9 % 04/21/2018 2:[address] [facility] MPV 9.8 9.4 - 12.9 fl 04/21/2018 2:[address] [facility] Neutrophils % 63.3 44.0 - 73.0 % 04/21/2018 2:59 PM MUNITIONS FACTORY WORKER [facility] Lymphocytes % 27.3 20.0 - 43.0 % 04/21/2018 2:[address] [facility] Monocytes % 7.8 5.0 - 13.0 % 04/21/2018 2:[address] [facility] Eosinophils % 1.0 0.0 - 6.0 % 04/21/2018 2:[address] [facility] Basophils % 0.4 0.0 - 2.0 % 04/21/2018 2:[address] [facility] Immature Granulocytes 0.2 0 - 1 % 04/21/2018 2:[address] [facility] Neutrophil Absolute 5.11 2.01 - 7.14 x10E9/L 04/21/2018 2:[address] [facility] Lymphocytes Absolute 2.20 1.07 - 3.94 x10E9/L 04/21/2018 2:[address] [facility] Monocytes Absolute 0.63 0.26 - 1.07 x10E9/L 04/21/2018 2:[address] [facility] Eosinophils Absolute 0.08 0 - 0.47 x10E9/L 04/21/2018 2:[address] [facility] Basophils Absolute 0.03 0 - 0.08 x10E9/L 04/21/2018 2:[address] [facility] Immature Granulocytes Absolute 0.02 0.00 - 0.06 x10E9/L 04/21/2018 2:[address] [facility] nRBC Auto 0 /100 WBC 04/21/2018 2:[address] [facility] Blood BLOOD SPECIMEN / Unknown Venipuncture / Unknown 04/21/2018 2:34 PM MUNITIONS FACTORY WORKER 04/21/2018 2:50 PM MUNITIONS FACTORY WORKER Robert Portillo MD LAB - HEMATOLOGY O RDERABLES [facility] [address] [place] [address] documented in this encounter Visit Diagnoses Diagnosis Pre-op testing- Primary Preoperative examination, unspecified documented in this encounter Care Teams Ordering Box Operator Relationship Specialty Start Date End Date Melonie Ochoa MD PCP - General 02/04/18 documented as of this encounter
--- OUTSIDE RECORDS SUMMARY | 2024-04-11 00:40 | XMS_ITS | Encounter Summary ---
Author Organization [facility] Address [address] [place] [address] Care Team Providers Care Medicaid Nurse Name Role Phone Melonie Ochoa MD Primary Care Provider [phone] Reason for Visit * Reason Onset Date Comments MEDICATION REFILL 03/06/2018 Encounter Details Date Type Department Care Team (Late st Contact Info) Description 03/06/2018 Refill [facility] [address] [place] [address] Mert Salmeron Jr., MD [address] [place] [address] [address] [place] [address] MEDICATION REFILL Social History Tobacco Use Types Packs/Day Years [...] documented as of this encounter Visit Diagnoses Not on filedocumented in this encounter Care Teams Medicaid Nurse Relationship Specialty Start Date End Date Melonie Ochoa MD PCP - General 02/04/18 documented as of this encounter
--- OUTSIDE RECORDS SUMMARY | 2024-04-11 00:40 | XMS_ITS | Encounter Summary ---
Author Organization [facility] Address [address] [facility] [place] [address] Care Team Providers Care Affiliate Marketing Manager Name Role Phone Melonie Ochoa MD Primary Care Provider [phone] Reason for Visit * Auth/Cert Specialty Diagnoses / Procedures Referred By Yanni weaver Referred To Contact Diagnoses Diagnosis unknown Diagnosis unknown [R69] Procedures LAPAROSCOPIC FULGURATION/EXCISION ENDOMETRIOSIS WITH LASER Referral ID Status Reason Start Date Expiration Date Visits Re quested Visits Authorized [id number] 1 1 Encounter Details Date Type Department Care Team (Late st Contact Info) Description 05/04/2018 7:38 AM ORDER SELECTOR Anesthesia Event [facility] [address] [place] [address] Arie Laguerre MD [address] [facility] [place] [address] Anesthesia Record Procedure Summary Procedure Name Responsible Anesthesiologist Anesthesia Start Time Anesthesia Stop Time DIAGNOSTIC LAPAROSCOPY, EXCISION OF ENDOMETRIOSIS WITH CO2 LASER (Left: Abdomen) Arie Laguerre MD 05/04/18 0738 05/04/18 0946 Events Date Time Event Comment 05/04/2018 0738 An Start 0738 An Start Data 0739 PT Reassessment 0743 Induction 0745 An Intubation 0807 Timeout Anesthesia part icipated in timeout at the time documented in the record by nursing. 0939 Extubation 0941 an stop data 0941 Electnc Sig 0942 ANPTO2 0946 An Stop Meds Name Total midazolam 2 mg/2mL injection 2 mg fentaNYL 250 mcg/5mL injection 200 mcg lidocaine 2% injection (20 mg/ml) 50 mg propofol 200mg/20mL injection 150 mg succinylcholine (ANECTINE) 100 mg/5 mL i njection 140 mg dexamethasone 4 mg/ml injection 4 mg ondansetron 4 mg/2mL injection 4 mg ketorolac 30 mg/ml injection 30 mg ceFAZolin (ANCEF) 2,000 mg in 50 ml IVPB 2 g phenylephrine 1000 mcg/10mL injection 40 0 mcg vecuronium 1 mg/ml injection 7 mg sugammadex 200 mg/2 mL injection 200 mg HYDROmorphone 2 mg/ml injection 1 mg lactated ringers infusion 1,000 mL * Agents Name Insp. N2O Exp. Sevoflurane Exp. N2O O2 Air Insp. Sevoflurane N2O * Blood No blood administrations on file. Lines, Drains, and Airways Type Details Placement Removal Peripheral IV Date: 05/04/18; Time : 0614; Orientation: Left; Placed By: Onur Richardson RN; Tolerance: Well 05/04/18613 by Georgiana Pleitez RN 05/04/181909 by Jeana, Auto Release ETT Date: 05/04/18; Time : 0745; Placed By: BENNY Corcoran; Vent: easy mask; Induction: Standard IV; Blade Type: Ilsa; Blade Size: 3; Laryngoscopy View: Grade 2 (partial cords); Intubation Adjuncts: Stylet; Tube: Endotracheal Tube; Placement: Oral; Tube Type: Cuffed-inflated; Tube Size(mm): 7 MM; Depth of Insertion: 22 CM; Measured From: lips; Attempts: 1; Cuff Infated: Air; Cuff Vol(mL): 7 mL; Verified By: Direct visualization, Bilateral breath sounds, Chest Auscultation, CO2 Monitor 05/04/18 0745 by Brigid Rees APRN-CRNA 05/04/18 0941 by Brigid Rees APRN-CRNA Procedural Site (Incision) 05/04/18; 08; Abdomen; Laparoscopic (3 sites); 05/04/18; 190905/04/18 08 by Georgia Senior RN 05/04/181909 by Jeana Auto Release Procedural Site (Incision) 05/04/18; 0810; Vagina; 05/04/18; 190905/04/18 08 by Georgia Senior RN 05/04/181909 by Generic, Auto Release Urethral Catheter 05/04/18; 08; Dr. Davila; Straight-tip; 10 mL; 05/04/18; 190905/04/18 08 by Georgia Senior RN 05/04/181909 by Generic, Auto Release Cont Nerve Block Catheter Date: 05/04/18; Time: 927; Laterality: Lower 05/04/18927 by Georgia Senior RN 05/04/181909 by Generic, Auto Release documented in this encounter Social History Tobacco [...] No 09/10/2016 documented as of this encounter Progress Notes * Arie Laguerre MD - 05/04/2018 3:15 PM CST ANESTHESIA POSTOP EVALUATION NOTE Procedure: DIAGNOSTIC LAPAROSCOPY, EXCISION OF ENDOMETRIOSIS WITH CO2 LASER, LAPAROSCOPIC OOPHORECTOMY--LEFT (Left Abdomen) CYSTOSCOPY (FLEXIBLE/RIGID) WITH STENT PLACEMENT (Bilateral Bladder) Airam Munoz is a 37 y.o. female Patient Vitals for the past 6 hrs: BP Temp Pulse Resp SpO2 Pain Rating Score #1 05/04/18 0950 118/86 96.8 ??F (36 ??C) 87 16 100 % 0 05/04/18 0954 - - 85 18 100 % - 05/04/18 0955 108/67 - 86 18 100 % - 05/04/18 0958 114/56 - 94 18 100 % - 05/04/18 0959 - - 85 17 100 % - 05/04/18 1001 114/53 - 86 17 100 % - 05/04/18 1004 - - 95 16 100 % - 05/04/18 1006 - - 87 17 100 % - 05/04/18 1008 - - 88 18 97 % - 05/04/18 1011 - - 87 17 97 % - 05/04/18 1014 121/51 - 86 19 98 % - 05/04/18 1015 - - - - - 0 05/04/18 1016 - - - - 99 % - 05/04/18 1017 - - - - 99 % - 05/04/18 1018 - - - - 99 % - 05/04/18 1019 - - - - 99 % - 05/04/18 1020 - - 85 14 98 % 0 05/04/18 1024 - - - - 100 % - 05/04/18 1025 115/54 - 89 14 100 % - 05/04/18 1030 - - 77 16 95 % - 05/04/18 1034 114/68 - 79 16 94 % - 05/04/18 1036 - - 95 18 96 % - 05/04/18 1037 - - - - 99 % - 05/04/18 1045 112/72 97.4 ??F (36.3 ??C) 83 16 100 % - 05/04/18 1048 - - - - - 4 Anesthesia Type: general Pre-op Diagnosis Codes: * Diagnosis unknown [R69] Mental Status: awake and neurologic status has returend to expected level of consciousness Neuro Status: No numbess, tingling or visual disturbances Respiratory Function: natural Cardiac Function: stable Postop Pain: acceptable to the patient Postop Hydration: adequate Postop Nausea: none Assessment: no apparent anesthetic complications, patient tolerated procedure well and no evidence of recall Patient Disposition: Release from Anesthesia Care R SELECTOR documented in this encounter Consult Notes * Arie Laguerre MD - 05/04/2018 6:34 AM CST ANESTHESIA PREOPERATIVE EVALUATION NOTE Procedure: DIAGNOSTIC LAPAROSCOPY, EXCISION OF ENDOMETRIOSIS WITH CO2 LASER, LAPAROSCOPIC OOPHORECTOMY--LEFT (Abdomen) NPO status: Since Midnight;*Except Oral meds with H2O;NO Tobacco Since Midnight (05/04/2018 6:14 AM) Vitals: Patient Vitals for the past 6 hrs: BP Temp Pulse Resp SpO2 Pain Rating Score #1 05/04/18 0613 109/70 97.6 ??F (36.4 ??C) 62 20 100 % 0 ANESTHESIA PRE-EVALUATION NOTE Physical Exam: Orientation X3 Airway/Mallampati Score: II Mouth Opening Distance: 3 fingerwidths Neck ROM: full Teeth: normal Heart: regular rate rhythm Lungs: normal ANESTHESIA PLAN ASA Score: 2 NPO Status: No solids since midnight, No liquids within 2 hours and No solids for 6 hours Anesthesia Plan: general ETT Planned Induction: intravenous Planned Postop Destination: PACU Anesthetic plan was discussed with: patient Anesthetic Plan discussion was: Consented BMI, Height, Weight Tobacco History Estimated body mass index is 33.39 kg/(m^2) as calculated from the following: Height as of this encounter: 1.689 m (5' 6.5 ). Weight as of this encounter: 95.3 kg (210 lb). History Smoking Status ??? Never Smoker Smokeless Tobacco ??? Never Used Alcohol History Drug History History Alcohol Use ??? 0.6 oz/week ??? 1 Glasses of wine per week Comment: occasionally per month History Drug Use No Outpatient Medications: Inpatient Medications: No current outpatient prescriptions on file. Current Facility-Administered Medications Medication Dose Last Dose ??? ceFAZolin 2 g ??? lactated ringers ??? lidocaine 0.2 mL 0.2 mL at 05/04/18615 ??? scopolamine 1 mg 1 mg at 05/04/18615 And ??? scopolamine patch placement confirmation Allergies: No Known Allergies Problem List: Patient Active Problem List Diagnosis Date Noted ??? Pelvic joint pain, left 02/04/2018 Priority: Not Prioritized ??? Dysmenorrhea 09/10/2016 Priority: Not Prioritized ??? Chronic pelvic pain in female 09/10/2016 Priority: Not Prioritized ??? Pain in joint involving right pelvic region and thigh 09/10/2016 Priority: Not Prioritized ??? Endometriosis 09/10/2016 Priority: Not Prioritized ??? Dysuria Priority: Not Prioritized ??? Supervision of high-risk 03/03/2012 GCT 147 GTT 84/133/108/77 A+/I/-/-, NR GBS neg 03/03/12 ??? labor 03/03/2012 Medical History: Past Medical History: Diagnosis Date ??? Endometriosis ??? Seasonal allergies Surgical History: Past Surgical History: Procedure Laterality Date ??? [...] ??? HYSTEROSCOPY ??? LAPAROSCOPY, DIAGNOSTIC x 2 Lab Results: Recent Labs Component Name 04/21/18 1434 WBC 8.1 HGB 13.5 HCT 39.1 PLTCOUNT 305 R SELECTOR documented in this encounter Miscellaneous Notes * Anesthesia Transfer of Care - Brigid Rees, LOAN TELLER-HOT MAN - 05/04/2018 9:41 AM CST ANESTHESIA TRANSFER OF CARE NOTE Today's Date: 05/04/2018 Date of : 1980 Patient: Airam Munoz Procedure(s): DIAGNOSTIC LAPAROSCOPY, EXCISION OF ENDOMETRIOSIS WITH CO2 LASER, LAPAROSCOPIC OOPHORECTOMY--LEFT CYSTOSCOPY (FLEXIBLE/RIGID) WITH STENT PLACEMENT Surgeon(s): Primary: Robert Portillo MD Preop Diagnosis: Pre-op Diagnois: * Diagnosis unknown [R69] Post-op Diagnosis: * Diagnosis unknown [R69] . No Known Allergies Vitals: No data found. Lines, Drains, and Airways Type Details Placement Removal Peripheral IV 05/04/18; 0614; Left; Hand; L Debra REECE; 20 Gauge; Phipps; 1; Injectable; Well 05/04/18 0614 by Georgiana Pleitez, [place]VY ETT 05/04/18; 0745 (created via procedure documentation); ANA Corcoran CRNA; easy mask; Standard IV; Ilsa; 3; Grade 2 (partial cords); Stylet; Endotracheal Tube; Oral; Cuffed-inflated; 7 MM; 22 CM; lips; 1; Air; 7 mL; Direct visualization, Bilateral breath sounds, Chest Auscultation, [id number]; 05/04/18; 0941 05/04/18 0745 by Brigid Rees APRN-CRNA 05/04/18 0941 by Brigid Rees APRN-CRNA Cont Nerve Block Catheter 05/04/18; 0928; Surgery; Lower; Abdomen 05/04/18 09 by RebeccaE. Senior RN Intraprocedure I/O Totals Urine Output Urine 150 mL Anesthesia Other Output Estimated Blood Loss 50 mL lactated ringers infusion Volume infused 800 ml Patient Transfer Location: PACU Transport Airway: spontaneous respirations and supplemental O2 Complications: None Handoff Given? Yes Checklist or Protocol - The burns handoff elements that must be included in the transfer of care checklist include: 1. Identification of patient. 2. Identification of responsible practitioner (PACU nurse or advanced practitioner). 3. Discussion of pertinent medical history. 4. Discussion of the surgical/procedure course (procedure, reason for surgery, procedure performed). 5. Intraoperative anesthetic management and issue/concerns. 6. Expectations/Plans for the early post-procedure period. 7. Opportunity for questions and acknowledgement of understanding of report from the receiving PACUteam. BENNY Corcoran R SELECTOR documented in this encounter Plan of Treatment Not on file documented as of this encounter Procedures Procedure Name Priority Date/Time Associated Diagnosis Comments ENDOTRACHEAL TUBE NOTE Routine 05/04/2018 8:26 AM ORDER SELECTOR documented in this encounter Visit Diagnoses Not on filedocumented in this encounter Administered Medications Inactive Administered Medications - up to 3 most recent administrations Medication Order MAR Action Action Date Dose Rate Site ceFAZolin (ANCEF) 2,000 mg in 50 ml IVPB 2,000 mg (2 g), at 100 mL/hr, Intravenous, PRE-OP ONCE, 1 dose, On Thu05/04/18 at 0600, Before reconstitution, protect from light, Indication for anti-infective therapy: Surgical prophylaxis $ Given 05/04/2018 7:47 AM ORDER SELECTOR 2 g dexamethasone (DECADRON) injection Intravenous, PRN, Nausea/Vomiting, Starting on Thu05/04/18 at 0822, Until Thu05/04/18 at 0948, Anesthesia Intra-op $ Given 05/04/2018 8:22 AM ORDER SELECTOR 4 mg fentaNYL (PF) (SUBLIMAZE) injection PRN, Starting on Thu05/04/18 at 0743, Until Thu05/04/18 at 0948, Anesthesia Intra-op $ Given 05/04/2018 8:47 AM ORDER SELECTOR 50 mcg $ Given 05/04/2018 7:43 AM ORDER SELECTOR 150 mcg HYDROmorphone (DILAUDID) injection PRN, Starting on Thu05/04/18 at 0852, Until Thu05/04/18 at 0948, Anesthesia Intra-op $ Given 05/04/2018 9:26 AM ORDER SELECTOR 0.5 mg $ Given 05/04/2018 8:52 AM ORDER SELECTOR 0.5 mg ketorolac (TORADOL) injection PRN, Starting on Thu05/04/18 at 0906, Until Thu05/04/18 at 0948, Anesthesia Intra-op $ Given 05/04/2018 9:06 AM ORDER SELECTOR 30 mg lactated ringers infusion at 20 mL/hr, Intravenous, PRE-OP CONTINUOUS, Starting on Thu05/04/18 at 0600, Until Thu05/04/18 at 1410, Pre-op $ New Bag/Syringe 05/04/2018 9:36 AM ORDER SELECTOR $ New Bag/Syringe 05/04/2018 6:17 AM ORDER SELECTOR 20 mL/ hr lidocaine (XYLOCAINE) 2 % injection PRN, Starting on Thu05/04/18 at 0743, Until Thu05/04/18 at 0948, Anesthesia Intra-op $ Given 05/04/2018 7:43 AM ORDER SELECTOR 50 mg midazolam (VERSED) injection Intravenous, PRN, Starting on Thu05/04/18 at 0738, Until Thu05/04/18 at 0948, Anesthesia Intra-op $ Given 05/04/2018 7:38 AM ORDER SELECTOR 2 mg Ondansetron HCl (ZOFRAN) injection PRN, Nausea/Vomiting, Starting on Thu05/04/18 at 0906, Until Thu05/04/18 at 0948, Anesthesia Intra-op $ Given 05/04/2018 9:06 AM ORDER SELECTOR 4 mg phenylephrine 100 mcg/mL injection PRN, Starting on Thu05/04/18 at 0801, Until Thu05/04/18 at 0948, Anesthesia Intra-op $ Given 05/04/2018 8:13 AM ORDER SELECTOR 200 mcg $ Given 05/04/2018 8:01 AM ORDER SELECTOR 200 mcg propofol (DIPRIVAN) injection PRN, Starting on Thu05/04/18 at 0743, Until Thu05/04/18 at 0948, Anesthesia Intra-op $ Given 05/04/2018 7:43 AM ORDER SELECTOR 150 mg succinylcholine (ANECTINE) injection PRN, Starting on Thu05/04/18 at 0744, Until Thu05/04/18 at 0948, Anesthesia Intra-op $ Given 05/04/2018 7:44 AM ORDER SELECTOR 140 mg sugammadex (BRIDION) injection PRN, Starting on Thu05/04/18 at 0918, Until Thu05/04/18 at 0948, Anesthesia Intra-op $ Given 05/04/2018 9:18 AM ORDER SELECTOR 200 mg vecuronium (NORCURON) injection PRN, Starting on Thu05/04/18 at 0803, Until Thu05/04/18 at 0948, Anesthesia Intra-op $ Given 05/04/2018 8:45 AM ORDER SELECTOR 1 m g $ Given 05/04/2018 8:03 AM ORDER SELECTOR 6 mg documented in this encounter Care Teams Affiliate Marketing Manager Relationship Specialty Start Date End Date Melonie Ochoa MD PCP - General 02/04/18 documented as of this encounter
--- OUTSIDE RECORDS SUMMARY | 2024-04-11 00:40 | XMS_ITS | Referral Summary ---
Author Organization [facility] Address [address] [facility] [place] [address] Care Team Providers Care Occupational Nurse Name Role Phone Melonie Ochoa MD Primary Care Provider [phone] Source Comments [facility],non-owned Affiliates and Associated Physician Practices is amultiple site organization consisting of ambulatory clinics and hospital sitesin [place], [place], [place] and [place]. This disclosure is being madepursuant to the Care Everywhere program and may not contain all information available regarding this patient. Last updated 18.[facility] Allergies No known active allergies Medications * Be aware that medications may not be up to date on this document. Alwaysverify current medications with the patient. Medication Sig Dispensed Refills Start Date End Date Status cetirizine (ZYRTEC) 10 MG tablet Take 10 mg by mouth once daily Active fluticasone propionate (FLONASE) 50 MCG/ACT nasal spray Dayhoit 1 Dayhoit into each nostril once daily 10/22/2015 Active [...] Comments Blood Pressure 100/68 05/14/2018 4:41 PM PRESERVATIVE FILLER MACHINE OPERATOR Pulse 83 05/04/2018 10:45 AM PRESERVATIVE FILLER MACHINE OPERATOR Temperature 36.3 ??C (97.4 ??F) 05/04/2018 10:[address] Respiratory Rate 16 05/04/2018 10:45 AM PRESERVATIVE FILLER MACHINE OPERATOR Oxygen Saturation 100% 05/04/2018 10:45 AM PRESERVATIVE FILLER MACHINE OPERATOR Inhaled Oxygen Concentration - - Weight 95.3 kg (210 lb) 05/14/2018 4:41 PM PRESERVATIVE FILLER MACHINE OPERATOR Height 167.6 cm (5' 6 ) 05/14/2018 4:41 PM PRESERVATIVE FILLER MACHINE OPERATOR Body Mass Index 33.89 05/14/2018 4:41 PM PRESERVATIVE FILLER MACHINE OPERATOR Functional Status Functional Status Response Date of [...] person have difficulty concentrating/remembering/making decisions? No 09/10/2016 Plan of Treatment Not on file Medical Devices Implanted Type Area Traveling Storekeeper Device Identifier Shelf Expiration Date Model / Serial / Lot Sys Drg Dlv T Onq Pnbstr Slskr Tpl Xpd Implanted:Qty: 1 on 05/04/2018 by Robert Portillo MD at [facility] Abdomen [employer] 05/12/2020 [id number] / / Procedures Procedure Name Priority Date/Time Associated Diagnosis Comments BASIC METABOLIC PANEL (CALCIUM TOTAL) STAT 03/03/2012 11:45 PM PRESERVATIVE FILLER MACHINE OPERATOR from Last 3 Months or Most Recently Relevant to Health Maintenance Results * (ABNORMAL) BASIC METABOLIC PANEL (CALCIUM TOTAL) (03/03/2012 11:45 PM PRESERVATIVE FILLER MACHINE OPERATOR) Sodium 135(L) 136 - 145 [...] BLOOD SPECIMEN / Unknown 03/03/2012 11:45 PM PRESERVATIVE FILLER MACHINE OPERATOR 03/04/2012 1:33 AM PRESERVATIVE FILLER MACHINE OPERATOR Glory Rosales MD LAB - CHEMISTRY [facility] [address] [place] [address] from Last 3 Months or Most Recently Relevant to Health Maintenance Administered Medications Advance Directives * Full Code (Latest Code Status on File) Date Activated Date Inactivated Comments 09/10/2016 1:47 PM 09/11/2016 1:51 PM * FULL RESUSCITATION Date Activated Date Inactivated Comments 03/03/2012 11:43 PM 03/05/2012 6:42 PM Care Teams Occupational Nurse Relationship Specialty Start Date End Date Melonie Ochoa MD PCP - General 02/04/18
--- OUTSIDE RECORDS SUMMARY | 2024-04-11 00:41 | XMS_ITS | Encounter Summary ---
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 Name Role Phone Yusef Aleman MD Primary Care Provider [phone] Reason for Visit * Auth/Cert Specialty Diagnoses / Procedures Referred By Yanni weaver Referred To Contact Diagnoses Pelvic pain in female Endometriosis Vaginismus Chronic pelvic pain in female Urgency of urination Pelvic pain in female Endometriosis Vaginismus Chronic pelvic pain in female Urgency of urination Procedures LAPAROSCOPIC FULGURATION/EXCISION ENDOMETRIOSIS WITH LASER LAPAROSCOPIC APPENDECTOMY HYSTERECTOMY TOTAL LAPAROSCOPIC WITH SALPINGECTOMY AND/OR OOPHORECTOMY CYSTOSCOPY WITH HYDRODISTENSION BLADDER Referral ID Status Reason Start Date Expiration Date Visits Re quested Visits Authorized [id number] 1 1 Encounter Details Date Type Department Care Team (Late st Contact Info) Description 09/10/2016 7:30 AM CDT - 09/10/2016 10:30 AM CDT Surgery [facility] [address] [place] [address] Mert Salmeron Jr., MD [address] [facility] [address] [place] [address] DIAGNOSTIC LAPAROSCOPY, EXCISION OF ENDOMETRIOSIS WITH CO2 LASER Surgery Details Date/Time Status Location OR Service Patient Class Case Class Case Type Trauma Case? 09/10/2016 7:30 AM Posted [facility] MAIN OR OR 07 Gynecology Surgery Day Care Over Night Elective > 5 days Panel 1 Procedure LRB Anes Op Region Wound Class Comments DIAGNOSTIC LAPAROSCOPY, EXCI INA OF ENDOMETRIOSIS WITH CO2 LASER General Abdomen Clean Contam inated LAPAROSCOPIC APPENDECTOMY Abdomen Ade n Contaminated TOTAL LAPAROSCOPIC HYSTERECT ARELI RIGHT OOPHERECTOMY SALPINGECTOMY LEFT SALPINGECTOMY General Abdomen Clean Contaminated CYSTOSCOPY WITH HYDRODISTENS ION #### SCIP #### General Bladder Clean Contaminated Surgeon Surgeon Role Service Panel Mert Salmeron Jr., MD Primary Gynecology 1 Eliana Todd MD Resident - Assisting Gynecology 1 Special Needs NEEDS [facility] Demohour FOR 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 ([employer]) NOTIFIED WITH CONFIRMATION # [id number]--17/18 LG documented in this encounter Social History Tobacco [...] Sign Reading Time Taken Comments Blood Pressure 100/59 09/11/2016 8:55 AM CDT Pulse 87 09/11/2016 8:55 AM CDT Temperature 36.4 ??C (97.5 ??F) 09/11/2016 8:55 AM CD T Respiratory Rate 18 09/11/2016 8:55 AM CDT Oxygen Saturation 98% 09/11/2016 8:55 AM CDT Inhaled Oxygen Concentration - - Weight 93.4 kg (206 lb) 09/02/2016 9:41 AM CDT Height 167.6 cm (5' 6 ) 09/02/2016 9:41 AM CDT Body Mass Index 33.25 09/02/2016 9:41 AM CDT documented in this encounter Functional Status Functional [...] No 09/10/2016 documented as of this encounter Discharge Summaries * Tiff Guerrero RN - 09/11/2016 12:50 PM CDT Discharged home per after seen by edge burnisher staff and . Has been up and about, voiding well, and tolerating regular food today. Uses incentive spirometer well. Rxs given and appointment made to follow-up in Dr. Dumont office in 2 weeks. Discharge activity read and reviewed, papers signed.Tiff Guerrero RN 09/11/2016 12:55 PM * Mert Salmeron Jr., MD - 09/11/2016 6:06 AM CDT Gynecology Discharge Summary Date of Admission: 09/10/2016 Date of Discharge: 09/11/2016 Admission Diagnosis: Chronic pelvic pain, Dysmenorrhea, Superficial dyspareunia, Dyschezia, Urgencyand frequency, History of endometriosis treated by ablation and biopsy, Failing hormonal suppression Discharge Diagnosis: As above, s/p Diagnostic laparoscopy, CO2 laser excision of abnormal peritoneum, laparoscopic appendectomy, cystoscopy with hydrodistention, total laparoscopic hysterectomy with bilateral salpingectomy, right oophorectomy Service: [facility] Service Consults: none History: This 36 y.o. presented with chronic pelvic pain, s/p two laparoscopies for endometriosis and multiple medical interventions. She desired definitive therapy. She was admitted after uneventful TLH/BS/RO with excision of endometriosis. Hospital Course: The patient met all postoperative milestones on POD #1: she passed a voiding trial, tolerated a regular diet, ambulated independently without difficulty, and reported flatus. Assessment: 36 y.o. s/p TLH/BS/RO, excision of endo, Post-op day # 1 Adequate pain control, tolerating diet, ambulating well, incision healing well. Condition at discharge: good Plan: Discharge Medication List As of 09/11/2016 12:50 PM START taking these medications Instructions Authorizing Provider docusate sodium 100 MG capsule Commonly known as: COLACE Take 1 Cap by mouth 2 times daily Sushma Talley oxyCODONE-acetaminophen 7.5-325 MG tablet Commonly known as: PERCOCET Take 1 Tab by mouth every 4 hours as needed Sushma Talley polyethylene glycol 3350 powder Commonly known as: GLYCOLAX Take 17 g by mouth once daily Sushma Talley CONTINUE taking these medications Instructions Authorizing Provider cetirizine 10 MG tablet Commonly known as: ZyrTEC Take 10 mg by mouth once daily cyclobenzaprine 5 MG tablet Commonly known as: FLEXERIL Take 1 Tab by mouth 3 times daily as needed Sushma Talley famotidine 20 MG tablet Commonly known as: PEPCID Take 20 mg by mouth at bedtime. fluticasone propionate 50 MCG/ACT nasal spray Commonly known as: FLONASE [place] 1 [place] into each nostril once daily vitamin 28-0.8 MG tablet Take 1 Tab by mouth once daily. traMADol 50 MG tablet Commonly known as: ULTRAM Take 1 Tab by mouth every 6 hours Sushma Talley STOP taking these medications HYDROcodone-acetaminophen 5-325 MG tablet Commonly known as: NORCO naproxen EC 500 MG tablet Commonly known as: EC-NAPROSYN NIFEdipine 10 MG capsule Commonly known as: PROCARDIA norethindrone 5 MG tablet Commonly known as: AYGESTIN Discharge Procedure Orders No special diet needed Resume your normal home diet as tolerated. Eat well-balanced meals that include foods from all of the food groups. Drink plenty of fluids It is important that you stay well hydrated. You should drink at least eight to ten 8-ounce glassesof water per day. Sexual activity No tampons, no douche, and no sexual intercourse for [address] While taking narcotics, tramadol, or hypnotics (flexeril). When to call your provider Call Dr. Salmeron if you have questions or concerns, or for any of the following issues: -- temperature higher than 100 F -- pain that gets worse or does not get better after taking your pain medication(s) as directed -- increased vaginal bleeding -- bleeding from your incision or IV site -- if your incision or IV site looks infected (red, swollen, warm to the touch, or non-clear, foul-smelling drainage) Follow up with provider Order Specific Question Answer Comments Follow Up Instructions: Please keep your follow up appointment with Dr. Salmeron. Discharge criteria met. The appropriate post-operative instructions and precautions reviewed. She will be discharged on meds as ordered. Regular diet. Pelvic rest as instructed. No heavy lifting. Contact physician for increased bleeding, increased pain or fever. Wound instructions and precautions given. Followup with Dr. Salmeron as directed. Sushma Talley MD 09/11/2016 7:05 AM Mert Salmeron Jr., MD 09/15/2016 11:03 AM documented in this encounter Medications at Time of Discharge Medication Sig Dispensed Refills Start Date End Date cetirizine (ZYRTEC) 10 MG tablet Take 10 mg by mouth once daily fluticasone propionate (FLONASE) 50 MCG/ACT nasal spray [place] 1 [place] into each nostril once daily 10/22/2015 polyethylene glycol 3350 (GLYCOLAX) powder Take 17 g by mouth once daily 500 g 09/11/2016 cyclobenzaprine (FLEXERIL) 5 MG tablet Take 1 Tab by mouth 3 times daily as needed 30 Tab 09/11/2016 05/04/2018 docusate sodium (COLACE) 100 MG capsuleIndications:Chron ic pelvic pain in female Take 1 Cap by mouth 2 times daily 60 Cap 09/11/2016 05/14/2018 famotidine (PEPCID) 20 MG tablet Take 20 mg by mouth at bedtime. 04/21/2018 oxyCODONE-acetaminophen (PERCOCET) 7.5-325 MG tablet Take 1 Tab by mouth every 4 hours as needed 40 Tab 09/11/2016 03/09/2018 Vit-Fe Fumarate-FA ( VITAMIN) 28-0.8 MG tablet Take 1 Tab by mouth once daily. 04/21/2018 traMADol (ULTRAM) 50 MG tablet Take 1 Tab by mouth every 6 hours 40 Tab 09/11/2016 05/04/2018 documented as of this encounter Progress Notes * Nissa Granados, CHEVY - 09/11/2016 10:56 AM CDT Case Management Initial Assessment Case Management screen completed, welcome letter given. Met with patient Lives with:: Spouse Family Support (name and phone): Extended Emergency Contact Information Primary Emergency Contact: Asad [facility] Mobile Relation: Spouse Secondary Emergency Contact: Rel,Unk Relation: Other Anticipated Discharge Date: Anticipated Discharge Date: 09/11/16 Anticipated level of care / disposition at discharge: Home Prior Level of Functioning: indepedent Equipment at Home: Equipment At Home: None Additional Equipment needed at home (does not have at home now): PCP: Yusef Aleman MD If no PCP, action taken: Pharmacy benefit: Yes SW Referral: no Readmission Risk Score: Readmit Risk Score Total: 5 If there is no score indicated, this patient has yet to be assessed for Readmission Risk. If patient requires HHC at discharge, he/she requests: Transportation at discharge: Family Transportation to MD appointments:Transportation to Appointments: Drives self Comments: Patient lives with her and children. She has steps and stairs to use but she states they pose no problem. to pick her up when discharged. Patient has appointment with Dr. Salmeron on 09/26 Will continue to follow. For any questions or needs please contact: Labor Economist Name/Phone number: Nissa Granados RN [phone] * Aurora Barnett RN - 09/11/2016 6:42 AM CDT Patient resting in bed. Pain controlled overnight. No c/o nausea. Voiding clear yellow urine without difficulty. Aurora Barnett RN 09/11/2016 6:43 AM * Mert Salmeron Jr., MD - 09/11/2016 6:02 AM CDT R2 WRAPPER DIPPER Progress Note Subjective: The patient is without complaints. Pain is controlled. She reports flatus passed. She has ambulatedand denies lightheadedness. She is voiding without difficulty. She denies headache, fever, chest pain, shortness of breath, and leg pain. Objective: BP 111/64 Pulse 83 Temp 98.5 ??F Resp 18 Ht 5' 6 (1.676 m) Wt 206 lb (93.4 kg) SpO2 99% BMI 33.25 kg/m2 Intake/Output Summary (Last 24 hours) at 09/11/16 0602 Last data filed at 09/11/16 0539 Gross per 24 hour Intake 6637 ml Output 2850 ml Net 3787 ml Exam: General: alert, cooperative, in no acute distress Heart: regular rate and rhythm. No murmurs auscultated. Lungs: Clear to auscultation bilaterally. No wheezes, rhales, rhonchi. Abdomen: non-distended; bowel sounds normoactive; appropriately tender to palpation. Incision: lap sites x 3 c/d/i with tegaderms and 2x2 gauze (not removed) Extremities: Non-tender. No edema. SCDs are in place. A/P: 36 y.o. P2 with 1. Endometriosis 1. POD #1 s/p diagnostic laparoscopy, excision of endometriosis with carbon dioxide laser, cystoscopy with hydrodistention, appendectomy, total laparoscopic hysterectomy with bilateral salpingectomy and possible right oophorectomy with left ovarian conservation 2. AFVSS 3. : voiding spontaneously 4. GI: Patient tolerating reg diet; encourage amb and continued eating to pass flatus 5. Pain well controlled 6. DVT Prophylaxis: Encourage increased ambulation, sequential compressive devices while in bed. 2. Plan: continue routine post-operative care/ Discharge today after seen by and attending Sushma Talley MD 09/11/2016 6:02 AM Pager: [phone] After 17:30 and before 7:00: call [phone] WRAPPER DIPPER Attending: Patient seen and examined. Agree with the resident assessment and plan. Okay to discharge when ready. Follow-up as scheduled. Mert Salmeron Jr., MD 09/11/2016 8:01 AM * Aurora Barnett RN - 09/11/2016 2:31 AM CDT Problem: Functional Mobility Goal: Patient will return to baseline or have improved mobility as evidenced by: 1. Ability to perform ADLs with minimum assistance 2. Ability to return to baseline mobility level Outcome: Ongoing Encourage ambulation. Problem: Pain/Discomfort Goal: Patient exhibits reduced pain/discomfort as evidenced by pain scores Outcome: Ongoing Patient will verbalize acceptable pain relief. * Tiff Guerrero RN - 09/10/2016 6:50 PM CDT Shift summary: laparscopic surgery today per Dr. Salmeron. Arrived from PACU at 1330. Sleepy but aroused easily. Minimal discimfort. Has been up to bathroom to void x2. Has been nauseated-zofran given. Attempting regular food at 1830. Vitals stable. BP can run low. SCDs on. 3 lap sites with 2x2 and tegaderm- all dry. Call light in reach. here. Tiff Guerrero RN 09/10/2016 6:53 PM * Emily Mccoy MD - 09/10/2016 5:14 PM CDT R1 WRAPPER DIPPER Progress Note Subjective: The patient underwent laparoscopic surgery today. Pain is well controlled on current medications. She is tolerating clear liquids, but has had some vomiting with solids and her pills. She has ambulated and is reporting some dizziness. She is voiding spontaneously. Objective: Temp (24hrs) Max:97.7 ??F Vitals: 09/10/16 1430 09/10/16 1500 09/10/16 1530 09/10/16 1701 BP: 104/60 108/61 114/66 140/67 Pulse: 63 67 77 69 Resp: 16 16 16 16 Temp: 97.4 ??F SpO2: 99% 100% 100% 99% Weight: Intake/Output Summary (Last 24 hours) at 09/10/16 1714 Last data filed at 09/10/16 1700 Gross per 24 hour Intake 3100 ml Output 600 ml Net 2500 ml Exam: General: alert, cooperative, in no acute distress. Lungs: Non-labored respirations on room air Abdomen: Soft. Non-distended. Appropriately tender to palpation. Incision: Laparoscopic dressings intact and without drainage Extremities: Non-tender. No edema. SCDs are in place. Data: Recent Labs Component Name 09/02/16 0940 WBC 7.0 HGB 14.0 HCT 40.7 PLTCOUNT 248 MEDICATIONS FOR CURRENT ENCOUNTER: SCHEDULED MEDICATIONS: docusate sodium (COLACE) capsule 100 mg, Oral, BID ketorolac (TORADOL) injection 30 mg, Intravenous, q6h CONTINUOUS MEDICATIONS: lactated ringers infusion, Intravenous, Continuous PRN MEDICATIONS: diphenhydrAMINE (BENADRYL) capsule 25 mg, Oral, q6h PRN ondansetron (ZOFRAN) injection 4 mg, Intravenous, q6h PRN oxyCODONE-acetaminophen (PERCOCET) 5-325 MG tablet 1-2 Tab, Oral, q4h PRN A/P: 36 y.o. s/p diagnostic laparoscopy, appendectomy, TLH, RSO, and LS; POD # 0 1. Afebrile, vital signs stable. 2. : Urinary output is adequate, currently voiding spontaneously 3. GI: Patient tolerating clear liquids. Advance diet as tolerated. Patient has had some vomiting, will give IV anti-emetics 4. Pain is well controlled with current medications. 5. DVT Prophylaxis: Encourage increased ambulation. Sequential compressive devices while in bed. 6. Continue routine post-operative care Emily Mccoy MD 09/10/2016 5:14 PM Pager: [phone] After 17:30 and before 7:00: call [phone] documented in this encounter H&P Notes * Mert Salmeron Jr., MD - 09/01/2016 11:14 AM CDT Pre Op History & Physical Per chart review Pre-Operative Diagnosis: Chronic pelvic pain, Dysmenorrhea, Superficial dyspareunia, Dyschezia, Urgency and frequency, History of endometriosis treated by ablation and biopsy, Failing hormonal suppression Planned Procedure: Diagnostic laparoscopy, excision of endometriosis with carbon dioxide laser, cystoscopy with hydrodistention, appendectomy, total laparoscopic hysterectomy with bilateral salpingectomy and possible right oophorectomy with left ovarian conservation Surgeon: Mert Salmeron MD History: 35 y.o. female presents at her initiative, having done her own internet research, [employer]. 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 She is with her . ?? Patient describes being on Lupronetta (every 3 months), has had 4 injections, does help a lot. Previous WRAPPER DIPPER was Dr. Judy Banks, who did laparoscopy, helped for a few months. Stabbing right sided pain. Dr. Hood who did laparoscopy and endometrial ablation (she bled for 9 months on hormonal suppression), and tubal ligation. ?? Has had 2 children, both vaginal delivery, and miscarriage. No problem getting . Is worried about 'complications' of hysterectomy. Has read that losing weight can 'help' with managing pain. 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 ?? Patient had all the time pain for about 2 years, even without bleeding. 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 Was on Mirena IUD before that, with breakthrough bleeding. ?? Pain is worse on the right, and right back pain, and down leg. ?? Patient describes dyschezia, worse with her periods - off Lupronetta. Patient did have constipation. Patient does have urgency and frequency. Patient denies history of hematuria and hematochezia. ?? Patient describes superficial dyspareunia. Do you have pain that lingers after intercourse for several hours? yes ?? Patient has had laparoscopy x2 (last 2014 with [facility]) to diagnose endometriosis. Ablation and biopsy was used to treat the endometriosis. Review of the operative notes indicate no endometriomas, no evidence of an obliterated cul-de-sac - large 6x4 cm peritoneal defect in the left broad ligament noted, as well as tenting in the left anterior cul-de-sac. PMH: History of Endometriosis PSH: Surgical history Past??Surgical??History Past Surgical History Procedure Laterality Date ??? Hx tubal ligation ? Hx dilation and curettage ? Hx hysteroscopy ? Biopsy cervix, 1 or more, or excision of lesion ? Laparoscopy abdomen diagnostic OB: OB History Para Term AB Living 3 1 1 1 1 SAB TAB Ectopic Multiple Live Births 1 # Outcome Date GA Lbr Noble/2nd Weight Sex Delivery Anes PTL Lv 3 2 Term 40w0d 4111 g (9 lb 1 oz) F Vag-Spont СЕРГЕЙ Comments: no complications 1 SAB Comments: mAB s/p D&C Obstetric Comments Denies h/o STDs and HIV. 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 Marital status: Spouse name: N/A ??? Number of children: N/A ??? Years of education: N/A Occupational History ??? Not on file. Social History Main Topics ??? Smoking status: Never Smoker ??? Smokeless tobacco: Never Used ??? Alcohol use No ??? Drug use: No ??? Sexual activity: Not on file Other Topics Concern ??? Not on file Social History Narrative Allergies Allergen Reactions ??? Codeine syncope No current facility-administered medications for this encounter. Current Outpatient Prescriptions Medication Sig Dispense Refill ??? NIFEdipine (PROCARDIA) 10 MG capsule Take 1 Cap by mouth every 6 hours. 90 Cap 0 ??? Vit-Fe Fumarate-FA ( VITAMIN) 28-0.8 MG tablet Take 1 Tab by mouth once daily. ??? famotidine (PEPCID) 20 MG tablet Take 20 mg by mouth at bedtime. Exam (Per Dr. Salmeron on 02/05/16): General: Within normal limits. Well appearing. Normal affect. Skin: Within normal limits. ENT: Thyroid within normal limits. No lymphadenopathy. Lungs: Within normal limits. Clear bilaterally. Cardiovascular: Regular rate and rhythm. Breast: Within normal limits. No skin changes. No palpable masses. Abdominal: Within normal limits. Scars none. No palpable masses. Pain none. ?? PELVIC: External genitalia: Within normal limits. No pelvic floor tension. Cervix: Within normal limits. Slight cervical motion tenderness. Uterus: Normal size and contour, anteverted. Mobile. Some tenderness in the midline. There is tenderness of the left uterosacral ligaments. Adnexa: Mobile. No enlarged masses palpable. Rectovaginal exam: No palpable masses. Guaiac not done. Lab Review: No results for input(s): ABORH in the last 56040 hours. No results for input(s): WBC, HGB, HCT, PLTCOUNT in the last 32461 hours. No results for input(s): SODIUM, POTASSIUM, CHLORIDE, CO2, BUN, CREATININE, GLUCOSE, CALCIUM in thelast 39550 hours. TVUS: No evidence of adenomyosis and endometriomas. Bilateral ovaries mobile. Assessment/Plan: 36 y.o. year old with chronic pelvic pain, dysmenorrhea, superficial dyspareunia, dyschezia, urgency and frequency, history of endometriosis treated by ablation and biopsy, and failing hormonal suppression. Plan to proceed with diagnostic laparoscopy, excision of endometriosis with carbon dioxide laser, cystoscopy with hydrodistention, appendectomy, total laparoscopic hysterectomy with bilateral salpingectomy and possible right oophorectomy with left ovarian conservation. Risks and Benefits of surgery were reviewed with the patient during her last clinic appointment, including but not limited to: infection, bleeding, possible need for blood transfusion, damage to surrounding structures (bladder, bowel, ureters). Emily Mccoy MD 09/01/2016 11:14 AM ASSURANCE SENIOR MANAGER INSURANCE Attending Complete history and physical was reviewed, and no change has occurred in the patient's condition since completion of the history and physical. Mert Salmeron Jr., MD 09/10/2016 7:48 AM documented in this encounter OR Notes * OR PostOp - Ada Anton - 09/11/2016 5:28 AM CDT MS3 WRAPPER DIPPER Post-Op Note Airam Munoz Date: 09/11/2016, 5:29 AM Subjective: 36 y.o. s/p diagnostic laparoscopy, excision of endometriosis by carbon dioxide laser, cystoscopy with hydrodistension, appendectomy, total laparoscopic hysterectomy with bilateral salpingectomy and right oophrectomy. Patient reports feeling generally well. Patient woke up at 4AM due to a 4/10 sharp lower right quadrant cutaneous pain that is now well-controlled with tramadol and percocet, and now patient feels a mild discomfort. Denies headache, fevers, sore throat, chest pain, shortness of breath, calf pain, nausea, stomachache. Patient reports tolerating normal diet last night, ambulating on her own this morning, and urinating spontaneously. Patient denies bowel movement and gas passage. Objective: Temp (24hrs) Max:98.6 ??F Vitals: 09/10/16 1800 05/31195209/11/16 00109/11/16 0523 BP: 116/63 110/74 104/55 111/64 Pulse: 79 76 83 83 Resp: Temp: 98.1 ??F 98.6 ??F 98.5 ??F SpO2: 98% 98% 100% 99% Weight: Intake/Output Summary (Last 24 hours) at 09/11/16 0529 Last data filed at 09/11/16 05 Gross per 24 hour Intake 5812 ml Output 2650 ml Net 3162 ml Post-op CBC taken this morning show low Hgb (11.7) and Hct (34.3) and high Neutrophil Abs (7.23) and Monocyte Abs (1.13) Pre-op CBC taken on 09/02 show the following values. Hgb: 14 Hct: 40.7 Neutrophils Abs: 4.11 Monocyte Abs: 1.13 Physical Exam: General: alert, cooperative, no distress Lungs: clear to auscultation bilaterally Heart: regular rate and rhythm, no rub or gallop Extremities: normal, non-tender bilaterally MEDICATIONS FOR CURRENT ENCOUNTER: ?? SCHEDULED MEDICATIONS: ?? docusate sodium (COLACE) capsule 100 mg, Oral, BID ?? ketorolac (TORADOL) injection 30 mg, Intravenous, q6h ?? CONTINUOUS MEDICATIONS: ?? lactated ringers infusion, Intravenous, Continuous ?? PRN MEDICATIONS: ?? diphenhydrAMINE (BENADRYL) capsule 25 mg, Oral, q6h PRN ?? ondansetron (ZOFRAN) injection 4 mg, Intravenous, q6h PRN ?? oxyCODONE-acetaminophen (PERCOCET) 5-325 MG tablet 1-2 Tab, Oral, q4h PRN ?? Assessment/Plan: 36 y.o., s/p diagnostic laparoscopy, excision of endometriosis by carbon dioxide laser, cystoscopy with hydrodistension, appendectomy, total laparoscopic hysterectomy with bilateral salpingectomy andright oophrectomy POD 1 1. AFVSS 2. GI- tolerates normal diet. No flatus or bowel movement yet. 3. - Spontaneous urination . Barrios catheter is absent. 4. Pain Control- Sharp 4/10 LRQ cutaneous pain adequately controlled with tramadol and percocet 5. Heme-Low Hgb and Hct and High absolute neutrophil and monocyte counts seem to be reactive to surgery 6. Prophylaxis-No SCDs in bed. Ambulation encouraged 7. Dispo- Monitor patient for her tolerance to ambulation today and wait for either bowel movement or flatus. Upon satisfactory observation, discharge patient to home. Ada Anton 09/11/2016 5:29 AM * Operative - Mert Salmeron Jr., MD - 09/10/2016 12:50 PM CDT Operative Note: Preop Dx: Chronic pelvic pain, Dysmenorrhea, Superficial dyspareunia, Dyschezia, Urgency and frequency, History of endometriosis treated by ablation and biopsy, Failing hormonal suppression Postop Dx: Same plus Negative for interstitial cystitis Procedure: Diagnostic laparoscopy CO2 laser excision of abnormal peritoneum Laparoscopic appendectomy Cystoscopy with hydrodistention Total laparoscopic hysterectomy with bilateral salpingectomy Right oophorectomy Date of Procedure: 09/10/2016 Anesthesia: General Surgeons: Dr. Mert Salmeron Jr. Assistants: Dr. Eliana Todd, R2 EBL: 100 cc IVF: 2800 cc UOP: 300 cc Findings: On exam under anesthesia, mobile anteverted uterus. No adnexal or rectovaginal lesions. 1. The uterus, tubes and ovaries appeared normal. 2. peritoneal defect in the left broad ligament noted, as well as tenting in the left anterior cul-de-sac 3. Abnormal lesions consistent with endometriosis in the left above the pelvic brim, right and leftuterosacral ligaments, left posterior cul-de-sac 4. There were some mild adhesions of the sigmoid to the left lateral sidewall. 5. There was no evidence of interstitial cystitis on cystoscopy with hydrodistention. 6. Normal appendix. 7. No evidence of interstitial cystitis on cystoscopy with hydrodistention. Pathology: left above the pelvic brim, right and left uterosacral ligaments, left posterior cul-de-sac Appendix Uterus, cervix, bilateral tubes, right ovary Complications: None. Procedure: The patient was taken back to the OR where anaesthesia was found to be adequate. The patient was prepped and draped in the usual fashion. Bilateral arms were tucked. The Bovie was on the left upper thigh. Bilateral SCDs were in place and functioning. The Barrios, RJ manipulator with colpotomizer ring, and medium- sized EEA sizer as a rectal probe were placed in the sterile field. 0.25% Marcaine was used for local anaesthesia at all port sites. The umbilicus was everted using anAllis, then a towel clip. A 12 mm incision was made vertically in the inferior aspect of the umbilicus but within the borders of the umbilical crater. Curved Alas scissors were used to isolate the fascia. By elevating the umbilical stalk with a Renato, the fascial defect at the base of the umbilical stalk was identified and entered bluntly with a curved hemostat. The fascial defect was widened using S-retractors, traction and countertraction. The fascial edges were tagged were O-Vicryl. A balloon trocar was placed without difficulty. Operating pressure was 15 mmHg. The area directly below the umbilical site was inspected for bowel injury and was found to be negative. The patient wasplaced in steep Trendelenburg. Two bladeless 5 mm lateral ports were placed 2 cm medial to ASIS on either side under direct visualization, and after transillumination to avoid the superior epigastricvessels. Findings were as above. Near contact laparoscopy [...] the Jonh bipolar. There was excellent hemostasis. All specimens were sent to pathology. I do believe that optimal debulking of all visual disease and of fibrotic and thickened peritoneum was achieved. Total laparoscopic hysterectomy was performed, along with bilateral salpingectomy, in the usual fashion. The Ligasure 5mm device was used for vessel sealing. The round ligaments were divided at the midpoint along their course. On either side, the Ligasure device was used to perform bilateral salpingectomy. A right sided oophprectomy was also performed. The utero-ovarian vessels were identified, sealed and divided and carried through to the round ligaments. A bladder flap was created. The Ligasure device was then used to divide the uterine vessels perpendicular to the ascending branch, at the level of the internal cervical os. Cephalad traction was maintained during this part of the procedure to reduce the ureters. The pedicles on either side after dividing the uterine vessels were allowedto fall away to behind the bulge of the vagina. ?? The colpotomizer ring was used to identify the cervico-vaginal junction which was entered using a monopolar hook. The rest of the colpotomy was then performed using the monopolar hook with cut current and progressing quickly. The vaginal cuff was oozy and there was healthy vaginal tissue. The vaginal cuff was closed with V-Lock suture in a running fashion. Laparoscopic appendectomy was performed in the usual fashion. The mesoappendix was coagulated and divided to the base allowing for isolation of the appendiceal-cecal junction. An endo SEBASTIEN stapler wasused to at the base of appendix to amputate the appendix. The stump was hemostatic. The stump was ir rigated copiously. Bipolar cautery was used judiciously to control bleeding. There was good hemostasis at the end of the procedure, and the irrigation fluid was clear. Hemostasis was also checked under low pressure at 5 mmHg, and still found to be excellent. The trocars were removed under direct visualization. Pneumoperitoneum was completely reduced. 5 deep breaths were given by anesthesia to help displace and evacuate the CO2 gas. The fascial defect wasclosed with a fresh O-Vicryl suture under direct visualization, replacing the former tags. A modified wound vacuum was placed at the umbilicus, and the lateral wounds were hemostatic and dressed withsteri-strips, gauze and Tegaderm. Cystoscopy was performed in the usual fashion. Bilateral ureteral jets were seen strong, and without difficulty. Survey of the bladder was within normal limits. The bladder was distended to 700 cc ofNS. As the bladder was deflating and on second fill, under visualization there was no evidence of petechial hemorrhages nor streaming. All counts were correct, times two. The patient tolerated the procedure well and taken to the PACU in good condition. I was scrubbed and present throughout the entire procedure. Eliana Todd MD 09/11/2016 11:02 PM I was scrubbed and present for the entire procedure. I have reviewed the operative note and agree with the documentation. Mert Salmeron Jr., MD 09/15/2016 11:04 AM CC: Mert Salmeron Jr., MD * Brief Op Note - Eliana Todd MD - 09/10/2016 11:58 AM CDT Brief Post-Operative Note 09/10/2016 Airam Munoz Date of Surgery: 09/10/2016 Surgeon(s) and Role: * Mert Salmeron Jr., MD - Primary * Eliana Todd MD - Resident - Assisting Anesthesiologist: Yusef Oscar MD TOOTH CUTTER CLUTCH: Rufina Hussein, EQUIPMENT OPERATOR INTERMODAL YARD-TOOTH CUTTER CLUTCH; Renee Abdullahi, EQUIPMENT OPERATOR INTERMODAL YARD-TOOTH CUTTER CLUTCH Pre-Op Diagnosis Codes: * Pelvic pain in female [R10.2] * Endometriosis [N80.9] * Vaginismus [N94.2] * Chronic pelvic pain in female [R10.2, G89.29] * Urgency of urination [R39.15] Postoperative Diagnosis: Same Procedure(s) and Anesthesia Type: * DIAGNOSTIC LAPAROSCOPY, EXCISION OF ENDOMETRIOSIS WITH CO2 LASER - General * LAPAROSCOPIC APPENDECTOMY * TOTAL LAPAROSCOPIC HYSTERECTOMY WITH SALPINGECTOMY--BILATERAL AND POSSIBLE OOPHORECTOMY--RIGHT WITH OVARIAN CONSERVATION--LEFT * CYSTOSCOPY WITH HYDRODISTENSION #### SCIP #### Findings: Normal appearing Uterus, tubes and ovaries, multiple areas of abnormal peritoneum suspicious for endometriosis, peritoneal defect in the left broad ligament noted, as well as tenting in theleft anterior cul-de-sac.Normal appearing appendix No signs of interstitial cystitis on cysto/hydro Disposition: PACU Status: Stable Drains: none Pack: none Complications: none EBL: 100 mL Specimen(s): ID Type Source Tests Collected by Time Destination A : Left uterosacral ligament Path Tissue GROSS + MICRO EXAM (STL) Mert Salmeron Jr., MD 09/10/201631 B : Left above pelvic brim Path Tissue GROSS + MICRO EXAM (STL) Mret Salmeron Jr., MD 09/10/201634 C : Left posterior cul de sac Path Tissue GROSS + MICRO EXAM (STL) Mert Salmeron Jr., MD 09/10/201634 D : Right uterosacral ligament Path Tissue GROSS + MICRO EXAM (STL) Mert Salmeron Jr., MD 09/10/2016 0937 E : Uterus, cervix, right tube and ovary, left tube Path Tissue GROSS + MICRO EXAM (STL) Mert Salmeron Jr., MD 09/10/2016 1112 F : Path Appendix GROSS + MICRO EXAM (STL) Mert Salmeron Jr., MD 09/10/2016 1131 Implant(s): * No implants in log * Operative note dictated: yes documented in this encounter Plan of Treatment Not on file documented as of this encounter Procedures Procedure Name Priority Date/Time Associated Diagnosis Comments APHERESIS/TRANSFUSION ORDER 09/15/2016 9:43 PM CDT CARDIAC RHYTHM STRIP ORDER 09/15/2016 9:43 PM CDT CBC W AUTO DIFFERENTIAL AM Draw 09/11/2016 3:01 AM CDT Chronic pelvic pain in female PATHOLOGY TISSUE EXAM (STL) Routine 09/10/2016 9:31 AM CDT Pelvic pain in female Endometriosis Vaginismus Chronic pelvic pain in female Urgency of urination CYSTOSCOPY WITH HYDRODISTENSION BLADDER 09/10/2016 8:25 AM CDT Pelvic pain in female Endometriosis Vaginismus Chronic pelvic pain in female Urgency of urination [email or web address] NOTIFIED WITH CONFIRMATION # [id number]--42/18 LG HYSTERECTOMY TOTAL LAPAROSCOPIC WITH SALPINGECTOMY AND/OR OOPHORECTOMY 09/10/2016 8:25 AM CDT Pelvic pain in female Endometriosis Vaginismus Chronic pelvic pain in female Urgency of urination [email or web address] NOTIFIED WITH CONFIRMATION # [id number]--57/18 LG LAPAROSCOPIC APPENDECTOMY 09/10/2016 8:25 AM CDT Pelvic pain in female Endometriosis Vaginismus Chronic pelvic pain in female Urgency of urination Special [email or web address]) NOTIFIED WITH CONFIRMATION # [id number]--66/18 LG LAPAROSCOPIC FULGURATION/EXCISION LESION PELVIC/OVARY (LASER) 09/10/2016 8:25 AM CDT Pelvic pain in female Endometriosis Vaginismus Chronic pelvic pain in female Urgency of urination Special Needs NEEDS [facility] [employer] FOR 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 Scanned Document NURSING - VITAL SIGN S AND ASSESSMENT * CARDIAC RHYTHM STRIP ORDER (09/15/2016 9:43 PM CDT) Narrative 09/15/2016 9:43 PM CDT Ordered by an unspecified provider. Scanned Document CARDIAC SERVICES ORD ERABLES * (ABNORMAL) CBC W AUTO DIFFERENTIAL (09/11/2016 3:01 AM CDT) WBC 10.6 4.4 - 10.7 x10E9/L 09/11/2016 3:47 AM CDT [facility] WBC Corrected x10E9/L 09/11/2016 3:47 AM CDT [facility] RBC 3.82 3.80 - 5.20 x10E12/L 09/11/2016 3:47 AM CDT [facility] Hemoglobin 11.7(L) 12.0 - 15.6 gm/dL 09/11/2016 3:47 AM CDT [facility] Hematocrit 34.3(L) 35.9 - 45.5 % 09/11/2016 3:47 AM CDT [facility] MCV 89.8 80.7 - 98.3 fl 09/11/2016 3:47 AM CDT [facility] MCH 30.6 26.7 - 34.0 pg 09/11/2016 3:47 AM CDT [facility] MCHC 34.1 30.8 - 35.9 gm/dL 09/11/2016 3:47 AM CDT [facility] Platelet Count 223 153 - 416 x10E9/L 09/11/2016 3:47 AM CDT [facility] RDW-CV 13.2 12.1 - 14.9 % 09/11/2016 3:47 AM CDT [facility] MPV 10.3 9.4 - 12.9 fl 09/11/2016 3:47 AM CDT [facility] Neutrophils % 67.9 44.0 - 73.0 % 09/11/2016 3:47 AM CDT [facility] Lymphocytes % 20.7 20.0 - 43.0 % 09/11/2016 3:47 AM CDT [facility] Monocytes % 10.6 5.0 - 13.0 % 09/11/2016 3:47 AM CDT [facility] Eosinophils % 0.3 0.0 - 6.0 % 09/11/2016 3:47 AM CDT [facility] Basophils % 0.2 0.0 - 2.0 % 09/11/2016 3:47 AM CDT [facility] Immature Granulocytes 0.3 0 - 1 % 09/11/2016 3:47 AM CDT [facility] Neutrophil Absolute 7.23(H) 2.01 - 7.14 x10E9/L 09/11/2016 3:47 AM CDT [facility] Lymphocytes Absolute 2.20 1.07 - 3.94 x10E9/L 09/11/2016 3:47 AM CDT [facility] Monocytes Absolute 1.13(H) 0.26 - 1.07 x10E9/L 09/11/2016 3:47 AM CDT [facility] Eosinophils Absolute 0.03 0 - 0.47 x10E9/L 09/11/2016 3:47 AM CDT [facility] Basophils Absolute 0.02 0 - 0.08 x10E9/L 09/11/2016 3:47 AM CDT [facility] Immature Granulocytes Absolute 0.03 0.00 - 0.06 x10E9/L 09/11/2016 3:47 AM CDT [facility] nRBC Auto 0 /100 WBC 09/11/2016 3:47 AM CDT [facility] Blood BLOOD SPECIMEN / Unknown Lab Venipuncture / Unknown 09/11/2016 3:01 AM CDT 09/11/2016 3:33 AM CDT Eliana Todd MD LAB - HEMATOLOGY ORD ERABLES [facility] [address] [place] [address] * GROSS + MICRO EXAM (STL) (09/10/2016 9:31 AM CDT) Case Report Surgical Pathology Report ? Case: [id number] ? Authorizing Provider: ??Mert Salmeron Jr., MD ?? Collected: ? 09/10/2016 09:31 AM ? Ordering Location: ? [facility] ? Received: ?09/10/2016 01:07 PM ? Pathologist: ? Danya Mtz MD ? Specimens: ?? A) - Ligament, Left uterosacral ligament ? B) - Tissue, Left above pelvic brim ? C) - Cul De Sac , Left posterior cul de sac ? D) - Ligament, Right uterosacral ligament ? E) - Uterus w Cervix, Uterus, cervix, right tube and ovary, left tube ? F) - Appendix ? 09/11/2016 4:01 PM CDT [facility] Final Diagnosis A. Ligament, left uterosacral, excision: -- No evidence of endometriosis B. Tissue, above left pelvic brim, excision: -- No evidence of endometriosis, -- Rare granuloma C. Cul-de-sac, left posterior, excision: -- Endometriosis D. Ligament, right uterosacral, excision: -- No evidence of endometriosis, -- Rare foreign body granulomas E. Uterus with cervix, right ovary and fallopian tube, left fallopian tube, hysterectomy with right salpingo-oophorectomy and left salpingectomy: -- Cervix with chronic cervicitis and squamous metaplasia -- Uterus with endometrium with ablation effect, unremarkable myometrium and serosa -- Right ovary with multiple cystic follicles -- Right fallopian tube with no pathologic changes -- Left fallopian tube with no pathologic changes F. Appendix, appendectomy: -- No pathologic diagnosis /SD/ns 09/11/2016 4:01 PM [facility] Gross Description The specimens are received in six containers for gross and microscopic examination labeled with the patient's name Airam Munoz. Specimen A, left uterosacral ligament, consists of one firm yellow to brown lewis tissue fragment measuring 0.8 cm x 0.6 x 0.3 cm and the entire specimen is submitted into cassette A1. Specimen B, tissue above left pelvic brim, consists of one firm yellow-lewis tissue fragment measuring 1 cm x 0.6 x 0.3 cm and the entire specimen is submitted into cassette B1. Specimen C, left posterior cul-de-sac, consists of one soft yellow-lewis tissue fragment measuring 1 cm x 0.3 cm x 0.2 cm and the entire specimen is submitted into cassette C1. Specimen D, right uterosacral ligament, consists of one firm white to brown lewis tissue fragment measuring 1.3 x 1 cm x 0.5 and the entire specimen is submitted into cassette D1. Specimen E, uterus with cervix and with right tube and ovary and left tube, consists of a uterus with attached cervix and detached right ovary and fallopian tube, and also detached left tube. The uterus with attached cervix weighs 65 gm. The serosa has pink-lewis unremarkable surface. The anterior cervix is inked by blue. The ectocervix measures 2.5 cm x 2.5 cm. The os is opened and has a slit-like pattern. The specimen is bivalved revealing an endocervical canal measuring 2 cm x 1 cm. The endometrial cavity measures 2.2 cm x 1 cm. There is no tumor or lesion identified in the both endocervical and endometrial cavities. The anterior endomyometrium measures 1.8 cm and posterior myometrium measures 1.5 cm. Right ovary measures 4.5 cm x 2.5 x 1.5 cm and has a cystic architecture. The ovary is opened revealing a hypertrophic ovary with multiple small cysts. The right fallopian tube measures 3 cm in length x 0.5 cm in diameter, has an unremarkable surface with a patent lumen. Left fallopian tube measures 3 cm in length x 0.5 cm in diameter, has a patent lumen and unremarkable mucosa on the surface. The specimen is submitted as follows: E1 - Anterior cervix E2 - Posterior cervix E3 and E4 - Anterior endomyometrium E5 - Posterior endomyometrium E6 - Right ovary E7 - Right fallopian tube E8 - Left fallopian tube. Specimen F, appendix, consists of an appendix with unremarkable outside surface measuring 9 cm in length x 0.5 cm in diameter. The mesoappendix measures 8 cm x 2 cm x 1 cm. One end of the specimen is stapled. No perforation or exudate identified on the external surface. Development Intern section is submitted in F1. PD/scs 09/11/2016 4:01 PM [facility] Microscopic Description Sections from specimens A, B, D, E, and F show no evidence of endometriosis. Sections from specimen C, cul-de-sac, left posterior, shows endometriosis. Sections from specimen E show cervix with chronic cervicitis. Sections from uterus show endometrium with ablation effect, unremarkable myometrium and serosa. Sections from right ovary reveal multiple cystic follicles. Sections from right and left fallopian tubes are unremarkable. Sections from specimen F, appendix, show no significant inflammation or organisms. /SD/ns 09/11/2016 4:01 PM [facility] Disclaimer All histochemical and/or immunohistochemical results are interpreted with controls that demonstrate appropriate staining reactions before reporting results. Note on use of immunocytochemistry reagents: This test was developed and its performance characteristic determined by [facility], Department of Laboratory Medicine. It has not been cleared or approved by the U.S. Food and Drug Administration (FDA). The FDA has determined that such clearance or approval is not necessary. The test is used for clinical purpose. It should not be regarded as investigational or for research. This laboratory is certified to perform high complexity testing. 09/11/2016 4:01 PM [facility] Embedded Images 09/11/2016 4:01 PM [facility] Pathology/Cytology ENTIRE LIGAMENT / Unknown 09/10/2016 9:31 AM CDT 09/10/2016 1:07 PM CDT Miscellaneous samples (specimen) TISSUE SPECIMEN / Unknown 09/10/2016 9:34 AM CDT 09/10/2016 1:07 PM CDT Miscellaneous samples (specimen) ENTIRE RECTOUTERINE POUCH / Unknown 09/10/2016 9:34 AM CDT 09/10/2016 1:07 PM CDT Miscellaneous samples (specimen) ENTIRE LIGAMENT / Unknown 09/10/2016 9:37 AM CDT 09/10/2016 1:07 PM CDT Miscellaneous samples (specimen) SPECIMEN FROM UTERINE CERVIX OBTAINED BY HYSTERECTOMY / Unknown 09/10/2016 11:12 AM CDT 09/10/2016 1:07 PM CDT Miscellaneous samples (specimen) ENTIRE APPENDIX / Unknown 09/10/2016 11:31 AM CDT 09/10/2016 1:07 PM CDT Mert Salmeron Jr., MD LAB - PATHOLOGY/ CYTOLOGY ORDERABLES [facility] [address] [place] [address] * HCG URINE QUALITATIVE - POINT OF CARE (IP) (09/10/2016 6:07 AM CDT) HCG Qual Urine Negative Negative [facility] QC Verified Yes Yes [facility] POC T TESTING Urine URINE / Unknown 09/10/2016 6 :07 AM CDT Mert Salmeron Jr., MD LAB - POINT OF C ARE ORDERABLES Performing Organization Address [facility] Co de Phone Number [facility] [address] [place] [address] documented in this encounter Visit Diagnoses Diagnosis Pelvic pain in female Unspecified symptom associated with female genital organs Endometriosis Vaginismus Chronic pelvic pain in female Unspecified symptom associated with female genital organs Urgency of urination Pelvic pain in female Unspecified symptom associated with female genital organs Endometriosis Vaginismus Chronic pelvic pain in female Unspecified symptom associated with female genital organs Urgency of urination documented in this encounter Administered Medications Inactive Administered Medications - up to 3 most recent administrations Medication Order MAR Action Action Date Dose Rate Site 0.9% nacl irrigation solution PRN, Starting on Thu09/10/16 at 0929, Until Thu09/10/16 at 1204, Intra-op $ Given 09/10/2016 9:29 AM CDT 1,000 mL Operative Site bupivacaine PF (MARCAINE PF) 0.25 % injection PRN, Starting on Thu09/10/16 at 0929, Until Thu09/10/16 at 1204, Intra-op $ Given 09/10/2016 9:29 AM CDT 30 mL Operative Site diphenhydrAMINE (BENADRYL) capsule 25 mg 25 mg, Oral, EVERY 6 HOURS PRN, Itching, Starting on Thu09/10/16 at 1347, Until Elsi 09/11/16 at 1350, Post-op docusate sodium (COLACE) capsule 100 mg 100 mg, Oral, 2 TIMES DAILY, First dose on Thu09/10/16 at 1400, Until Discontinued, Post-op $ Given 09/11/2016 8:54 AM CDT 100 mg $ Given 09/10/2016 9:27 PM CDT 100 mg $ Given 09/10/2016 3:44 PM CDT 100 mg fentaNYL (PF) (SUBLIMAZE) injection 50 mcg 50 mcg, Intravenous, EVERY 3 MIN PRN, Mild Pain, Starting on Thu09/10/16 at 1151, Until Thu09/10/16 at 1317, Maximum total of 4 doses. If patient reaches max total dose, please consult anesthesiologist prior to further administration of pain meds. Hold pain meds if there are signs of hypoventilation., PACU $ Given 09/10/2016 12:40 PM CDT 50 mcg HYDROmorphone (DILAUDID) injection 0.5 mg 0.5 mg, Intravenous, EVERY 5 MIN PRN, Severe Pain, 4 doses, Starting on Thu09/10/16 at 1151, Until Thu09/10/16 at 1317, Maximum total of 4 doses If patient reaches max total dose, please consult anesthesiologist prior to further administration of pain meds. Hold pain meds if there are signs of hypoventilation., PACU $ Given 09/10/2016 12:30 PM CDT 0.5 mg $ Given 09/10/2016 12:20 PM CDT 0.5 mg ketorolac (TORADOL) injection 30 mg 30 mg, Intravenous, EVERY 6 HOURS, 4 doses, First dose on Thu09/10/16 at 1400, Last dose on Elsi 09/11/16 at 0600, Post-op $ Given 09/11/2016 12:10 PM CDT 30 mg $ Given 09/11/2016 5:34 AM CDT 30 mg $ Given 09/11/2016 12:13 AM CDT 30 mg lactated ringers infusion at 20 mL/hr, Intravenous, PRE-OP CONTINUOUS, Starting on Thu09/10/16 at 0600, Until Thu09/10/16 at 1317, Pre-op $ New Bag/Syringe 09/10/2016 12:20 PM CDT 2 0 mL/hr $ New Bag/Syringe 09/10/2016 10:00 AM CDT $ New Bag/Syringe 09/10/2016 9:00 AM CDT lactated ringers infusion at 75 mL/hr, Intravenous, CONTINUOUS, Starting on Thu09/10/16 at 1745, Until Thu09/11/16 at 1350 $ New Bag/Syringe 09/11/2016 5:33 AM CDT 75 mL/hr $ New Bag/Syringe 09/10/2016 7:44 PM CDT 75 mL/ hr lidocaine (XYLOCAINE MPF) 1 % injection Infiltration, PRE-OP MULTIPLE, 3 doses, Starting on Thu09/10/16 at 0549, Until Thu09/10/16 at 1317, May be used (0.2 ml locally to anesthetize prior to insertion if patient has NKA to Lidocaine)., Pre-op $ Given 09/10/2016 6:15 AM CDT 2 mL ondansetron (disintegrating) (ZOFRAN ODT) tablet 4 mg 4 mg, Oral, EVERY 6 HOURS PRN, Nausea/Vomiting, Starting on Thu09/10/16 at 1347, Until Thu09/10/16 at 1713, Allow tablet to dissolve on the tongue, Post-op $ Given 09/10/2016 4:12 PM CDT 4 mg ondansetron (ZOFRAN) injection 4 mg 4 mg, Intravenous, EVERY 6 HOURS PRN, Nausea/Vomiting, Starting on Thu09/10/16 at 1713, Until Elsi 09/11/16 at 1350 $ Given 09/10/2016 6:42 PM CDT 4 mg oxyCODONE-acetaminophen (PERCOCET) 5-325 MG tablet 1-2 Tab 1-2 tablet, Oral, EVERY 4 HOURS PRN, Moderate Pain, Severe Pain, Starting on Thu09/10/16 at 1347, Until Thu09/11/16 at 0613, Post-op $ Given 09/11/2016 4:41 AM CDT 2 tablets $ Given 09/10/2016 7:44 PM CDT 1 tablet oxyCODONE-acetaminophen (PERCOCET) 7.5-325 MG tablet 1 Tab 1 tablet, Oral, EVERY 4 HOURS PRN, Moderate Pain, Starting on Thu09/11/16 at 0613, Until Thu09/11/16 at 1350 $ Given 09/11/2016 8:54 AM CDT 1 tablet scopolamine (TRANSDERM-SCOP) 1.5 MG patch 1.5 mg 1.5 mg, Administer over 72 Hours, PRE-OP ONCE, 1 dose, On Thu09/10/16 at 0556, Apply patch behind the ear, do not cut patch, only 1 patch should be worn at a time and remove old patch before applying new patch.This patch may contain metal and is not compatible with MRI. Notify radiology of patch location upon arrival to MRI. $ Applied 09/10/2016 6:16 AM CDT 1.5 mg Behind Right Ear documented in this encounter Active and Recently Administered Medications Times are shown in CDT. Scheduled Medication Order 09/09/2016 09/10/2016 09/11/2016 cefOXitin (MEFOXIN) 2,000 mg in 50 mL IVPB (COMPLETED) 2,000 mg (2 g), at 100 mL/hr, Intravenous, PRE-OP ONCE, 1 dose, On Thu09/10/16 at 0555 0837 ($ Given - Provider: Renee Abdullahi APRN-TO[employer]UTTER [employer]CH) docusate sodium (COLACE) capsule 100 mg 100 mg, Oral, 2 TIMES DAILY, First dose on Thu09/10/16 at 1400, Until Discontinued, Post-op 1400 (Not Administered - Provider: Tiff Guerrero RN - Reason: Patient sleeping)1544 ($ Given - Provider: Tiff Guerrero RN)2127 ($ Given - Provider: Aurora Barnett RN) 0854 ($ Given - Provider: Tiff Guerrero RN) ketorolac (TORADOL) injection 30 mg (COMPLETED) 30 mg, Intravenous, EVERY 6 HOURS, 4 doses, First dose on Thu09/10/16 at 1400, Last dose on Thu09/11/16 at 0600, Post-op 1400 (Not Administered - Provider: Tiff Guerrero RN - Reason: Medication not available)1544 (Not Administered - Provider: Tiff Guerrero RN - Reason: Medication not available)1700 (Canceled Entry - Provider: Tiff Guerrero RN)1725 ($ Given - Provider: Tiff Guerrero RN)1808 (Not Administered - Provider: Tiff Guerrero RN - Reason: Documented on duplicate row) 0013 ($ Given - Provider: Aurora Barnett RN)0534 ($ Given - Provider: Aurora Barnett RN)1210 ($ Given - Provider: Tiff Guerrero RN) lidocaine (XYLOCAINE MPF) 1 % injection (CANCELED) Infiltration, PRE-OP MULTIPLE, 3 doses, Starting on Thu09/10/16 at 0549, Until Thu09/10/16 at 1317, May be used (0.2 ml locally to anesthetize prior to insertion if patient has NKA to Lidocaine)., Pre-op 0615 ($ Given - Provider: Ashwini Butterfield RN) scopolamine (TRANSDERM-SCOP) 1.5 MG patch 1.5 mg 1.5 mg, Administer over 72 Hours, PRE-OP ONCE, 1 dose, On Thu09/10/16 at 0556, Apply patch behind the ear, do not cut patch, only 1 patch should be worn at a time and remove old patch before applying new patch.This patch may contain metal and is not compatible with MRI. Notify radiology of patch location upon arrival to MRI. 0616 ($ Applied - Provider: Ashwini Butterfield RN) Continuous Medication Order 09/09/2016 09/10/2016 09/11/2016 lactated ringers infusion (CANCELED) at 20 mL/hr, Intravenous, PRE-OP CONTINUOUS, Starting on Thu09/10/16 at 0600, Until Thu09/10/16 at 1317, Pre-op 0615 ($ New Bag/Syringe - Provider: Ashwini Butterfield RN)0900 ($ New Bag/Syringe - Provider: Renee Abdullahi APRN-[employer])1000 ($ New Bag/Syringe - Provider: Renee Abdullahi APRN-[employer])1137 (Anesthesia Volume Adjustment - Provider: Rufina Hussein APRN-[employer])1220 ($ New Bag/Syringe - Provider: Zay Nichole RN) lactated ringers infusion at 75 mL/hr, Intravenous, CONTINUOUS, Starting on Thu09/10/16 at 1745, Until Elsi 09/11/16 at 1350 1745 (Not Administered - Provider: Tiff Guerrero RN - Reason: IV Currently Infusing)1944 ($ New Bag/Syringe - Provider: Tiff Guerrero RN) 0533 ($ New Bag/Syringe - Provider: Aurora Barnett RN) PRN Medication Order 09/09/2016 09/10/2016 09/11/2016 0.9% nacl irrigation solution (CANCELED) PRN, Starting on Thu09/10/16 at 0929, Until Thu09/10/16 at 1204, Intra-op 0929 ($ Given - Provider: Mert Salmeron Jr., MD) bupivacaine PF (MARCAINE PF) 0.25 % injection (CANCELED) PRN, Starting on Thu09/10/16 at 0929, Until Thu09/10/16 at 1204, Intra-op 0929 ($ Given - Provider: Mert Salmeron Jr., MD - Comment: on back table) diphenhydrAMINE (BENADRYL) capsule 25 mg 25 mg, Oral, EVERY 6 HOURS PRN, Itching, Starting on Thu09/10/16 at 1347, Until Esli 09/11/16 at 1350, Post-op fentaNYL (PF) (SUBLIMAZE) injection 50 mcg (CANCELED) 50 mcg, Intravenous, EVERY 3 MIN PRN, Mild Pain, Starting on Thu09/10/16 at 1151, Until Thu09/10/16 at 1317, Maximum total of 4 doses. If patient reaches max total dose, please consult anesthesiologist prior to further administration of pain meds. Hold pain meds if there are signs of hypoventilation., PACU 1240 ($ Given - Provider: Zay Nichole RN) HYDROmorphone (DILAUDID) injection 0.5 mg (CANCELED) 0.5 mg, Intravenous, EVERY 5 MIN PRN, Severe Pain, 4 doses, Starting on Thu09/10/16 at 1151, Until Thu09/10/16 at 1317, Maximum total of 4 doses If patient reaches max total dose, please consult anesthesiologist prior to further administration of pain meds. Hold pain meds if there are signs of hypoventilation., PACU 1220 ($ Given - Provider: Zay Nichole RN)1230 ($ Given - Provider: Zay Nichole RN) ondansetron (disintegrating) (ZOFRAN ODT) tablet 4 mg (CANCELED) 4 mg, Oral, EVERY 6 HOURS PRN, Nausea/Vomiting, Starting on Thu09/10/16 at 1347, Until Thu09/10/16 at 1713, Allow tablet to dissolve on the tongue, Post-op 1612 ($ Given - Provider: Tiff Guerrero, CHEVY) ondansetron (ZOFRAN) injection 4 mg 4 mg, Intravenous, EVERY 6 HOURS PRN, Nausea/Vomiting, Starting on Thu09/10/16 at 1713, Until Elsi 09/11/16 at 1350 1842 ($ Given - Provider: Tiff Guerrero, [place]VY) oxyCODONE-acetaminophen (PERCOCET) 5-325 MG tablet 1-2 Tab (CANCELED) 1-2 tablet, Oral, EVERY 4 HOURS PRN, Moderate Pain, Severe Pain, Starting on Thu09/10/16 at 1347, Until Elsi 09/11/16 at 0613, Post-op 1944 ($ Given - Provider: Tiff Guerrero RN) 0441 ($ Given - Provider: Valerie Palomino RN) oxyCODONE-acetaminophen (PERCOCET) 7.5-325 MG tablet 1 Tab 1 tablet, Oral, EVERY 4 HOURS PRN, Moderate Pain, Starting on Thu09/11/16 at 0613, Until Elsi 09/11/16 at 1350 0854 ($ Given - Provider: Tiff Guerrero, CHEVY) documented in this encounter Care Teams Washing Machine Loader And Puller Relationship Specialty Start Date End Date Yusef Aleman MD [address] [place] [address] PCP - General Family Medicine 09/02/16 02/03/18 documented as of this encounter
--- OUTSIDE RECORDS SUMMARY | 2024-04-11 00:41 | XMS_ITS | Encounter Summary ---
Author Organization [facility] Address [address] [facility] [place] [address] Care Team Providers Care Education Counselor Name Role Phone Melonie Ochoa MD Primary Care Provider [phone] Reason for Visit * Reason Onset Date Comments MEDICATION REFILL 02/16/2018 Encounter Details Date Type Department Care Team (Late st Contact Info) Description 02/16/2018 Refill [facility] [address] [place] [address] Sushma Talley MD [address] [place] [address] MEDICATION REFILL Social History Tobacco Use Types [...] on filedocumented in this encounter Care Teams Education Counselor Relationship Specialty Start Date End Date Melonie Ochoa MD PCP - General 02/04/18 documented as of this encounter
--- OUTSIDE RECORDS SUMMARY | 2024-04-11 00:41 | XMS_ITS | Encounter Summary ---
Author Organization [facility] Address [address] [place] [address] Care Team Providers Care Dimensional Inspector Name Role Phone Melonie Ochoa MD Primary Care Provider [phone] Reason for Visit * Reason Comments Pain Abdominal Encounter Details Date Type Department Care Team (Late st Contact Info) Description 02/04/2018 11:00 AM CDT Office Visit [facility] [address] [place] [address] Mert Salmeron Jr., MD [address] [facility] [address] [place], [place] [id number] Pelvic joint pain, left (Primary Dx) Social History Tobacco Use Types [...] Sign Reading Time Taken Comments Blood Pressure 108/70 02/04/2018 10:29 AM CDT Pulse - - Temperature - - Respiratory Rate - - Oxygen Saturation - - Inhaled Oxygen Concentration - - Weight 93.8 kg (206 lb 13.6 oz) 018 10:29 AM CDT Height 167.6 cm (5' 6 ) 02/04/2018 10:2 9 AM CDT Body Mass Index 33.39 02/04/2018 10:29 AM CDT documented in this encounter Functional [...] this encounter Patient Instructions * Patient Instructions* Mert Salmeron Jr., MD - 02/04/2018 11:23 AM CDT [email or web address] [facility]/fertility How to Contact Us Between Office Visits If you need to make an appointment with your doctor, please do so before you leave today. If you need to check your schedule prior to making your next appointment, please call us at [phone] as soon as possible to schedule. For scheduling routine appointments, requesting refills or leaving a message for your doctor, the office phone is [phone]. You will be given options to get to the assistance you need. Phone lines are open from 8:00 am to4:30 pm Thursday through Thursday. All prescription refills must be requested during regular office phone hours. Our fax number is [phone]. After hours urgent calls that cannot wait until phone lines are open on the next business day are given to the physician process control manager. Please call [phone]. Identify yourself as a patient in our practice and give the operatoryour doctor's name. The case loader operator will contact the physician process control manager to address your concerns. documented in this encounter Progress Notes * Mert Salmeron Jr., MD - 02/04/2018 11:13 AM CDT 37 y.o. here for follow-up due to pain. Patient is status post optimal excision surgery with me in . Patient states that the right sided pain is better, but has had off and on left sided pain. Went to ER, concern for torsion that seemed to resolve. TVUS showed normal flow and mobility of left ovary. AVSS Abdo: pain on palpation in the midline, worse with flexion of the abdominal wall. Pelvic: Deferred. ASSESSMENT: Endometriosis, status post optimal excision, total laparoscopic hysterectomy with bilateral salpingectomy and right oophorectomy, appendectomy in August 2016 Now left-sided pain for 1 month PLAN: Discussed that the goal of surgery is to help pain by treating disease which is usually effective, but that endometriosis and pain are different entities. Clarified that should pain persist or return, it does not mean that the endometriosis has necessarily returned, and that patient may be referredto our multidisciplinary [facility] for treatment of pain. Discussed while there is no cure for endometriosis and that it can always return, that the risk of recurrence or persistence of the disease is low. Patient would like left ovary out. Discussed the risks and benefits of bilateral ovarian removal versus conservation. Discussed the lifetime risk of ovarian cancer (without other risk factors) to be 1/70. Discussed the possible need for hormone replacement for menopausal symptoms after bilateral oophorectomy, and the risks and benefits associated with replacement. Discussed the need for increased calcium, vitamin D, and weight-bearing exercises after bilateral oophorectomy. Surgical plan is diagnostic laparoscopy, excision of endometriosis with carbon dioxide laser, left oophorectomy. Counseled the patient on the risks and benefits of surgery including but not limited to infection and bleeding, and damage to bowel, bladder, vessels, ureter. Also, discussed the possibility of conversion to laparotomy, and with a delayed bowel injury the possibility of colostomy, though this is usually temporary. Discussed the possibility of a staged procedure being necessary. Discussed expectations after surgery including the possibility that her pain is not relieved after the procedure. Patient understood and agreed. All questions answered. Will defer hormone management to primary [employer]. 30 minutes spent in consultation with the patient, more 50% of which was spent in counseling. documented in this encounter Plan of Treatment Not on file documented as of this encounter Procedures Procedure Name Priority Date/Time Associated Diagnosis Comments IMAGING/RADIOLOGY/X RAY RESULTS ORDER 02/05/2018 7:07 AM CDT documented in this encounter Results * IMAGING/RADIOLOGY/XRAY RESULTS ORDER (02/05/2018 7:07 AM CDT) Anatomical Region Laterality Modality Other Narrative 02/05/2018 7:07 AM CDT Ordered by an unspecified provider. Scanned Document IMAGING documented in this encounter Visit Diagnoses Diagnosis Pelvic joint pain, left- Primary documented in this encounter Care Teams Dimensional Inspector Relationship Specialty Start Date End Date Melonie Ochoa MD PCP - General 02/04/18 documented as of this encounter
--- OUTSIDE RECORDS SUMMARY | 2024-04-11 00:41 | XMS_ITS | Encounter Summary ---
Author Organization [facility] Address [address] [place] [address] Care Team Providers Care Planned Giving Officer Name Role Phone Yusef Aleman MD Primary Care Provider [phone] Reason for Visit * Reason Comments TB Follow-up Encounter Details Date Type Department Care Team (Late st Contact Info) Description 09/02/2017 3:20 PM CDT Office Visit [facility] [address] [phone] Tuberculin skin test reading encounter (Primary Dx) Social History Tobacco Use Types [...] as of this encounter Progress Notes * Em Bella, MOISÉS-SOFTWARE VALIDATION ENGINEER - 09/02/2017 3:20 PM CDT PPD Reading Note PPD read and results entered in [facility]. Result: 0 mm induration. Interpretation: negative If test not read within 48-72 hours of initial placement, patient advised to repeat in other arm. Allergic reaction: no documented in this encounter Plan of Treatment Not on file documented as of this encounter Visit Diagnoses Diagnosis Tuberculin skin test reading encounter- Primary documented in this encounter Care Teams Planned Giving Officer Relationship Specialty Start Date End Date Yusef Aleman MD [address] [place] [address] PCP - General Family Medicine 09/02/16 02/03/18 documented as of this encounter
--- OUTSIDE RECORDS SUMMARY | 2024-04-11 00:41 | XMS_ITS | Encounter Summary ---
Author Organization [facility] Address [address] [facility] [place] [address] Care Team Providers Care Commodity Supervisor Name Role Phone Yusef Aleman MD Primary Care Provider [phone] Encounter Details Date Type Department Care Team (Latest Contact Info) Description 09/02/2016 9:28 AM CDT - 09/02/2016 11:59 PM CDT Hospital Encounter [facility] [address] [place] [id number] Mert Salmeron Jr., MD [address] [facility] [address] [place] [address] Discharge Disposition: Home or Self Care Social [...] on file documented as of this encounter Medications at Time of Discharge Medication Sig Dispensed Refills Start Date End Date cetirizine (ZYRTEC) 10 MG tablet Take 10 mg by mouth once daily fluticasone propionate (FLONASE) 50 MCG/ACT nasal spray [place] 1 [place] into each nostril once daily 10/22/2015 polyethylene glycol 3350 (GLYCOLAX) powder Take 17 g by mouth once daily 500 g 09/11/2016 cyclobenzaprine (FLEXERIL) 5 MG tablet Take 1 Tab by mouth 3 times daily as needed 30 Tab 09/11/2016 05/04/2018 cyclobenzaprine (FLEXERIL) 5 MG tablet Take 5 mg by mouth 3 times daily as needed 09/11/2016 docusate sodium (COLACE) 100 MG capsuleIndications:Chron ic pelvic pain in female Take 1 Cap by mouth 2 times daily 60 Cap 09/11/2016 05/14/2018 famotidine (PEPCID) 20 MG tablet Take 20 mg by mouth at bedtime. 04/21/2018 HYDROcodone-acetaminophe n (NORCO) 5-325 MG tablet Take 1 Tab by mouth every 4 hours as needed for Pain 09/11/2016 naproxen EC (EC-NAPROSYN) 500 MG tablet Take 500 mg by mouth 2 times daily 06/27/2016 09/11/2016 NIFEdipine (PROCARDIA) 10 MG capsule Take 1 Cap by mouth every 6 hours. 90 Cap 0 03/05/2012 09/11/2016 norethindrone (AYGESTIN) 5 MG tablet Take 1 Tab by mouth once daily 07/17/2016 09/11/2016 oxyCODONE-acetaminophen (PERCOCET) 7.5-325 MG tablet Take 1 Tab by mouth every 4 hours as needed 40 Tab 09/11/2016 03/09/2018 Vit-Fe Fumarate-FA ( VITAMIN) 28-0.8 MG tablet Take 1 Tab by mouth once daily. 04/21/2018 traMADol (ULTRAM) 50 MG tablet Take 1 Tab by mouth every 6 hours 40 Tab 09/11/2016 05/04/2018 traMADol (ULTRAM) 50 MG tablet Take 50 mg by mouth every 6 hours 06/11/2016 09/11/2016 documented as of this encounter Plan of Treatment Not on file documented as of this encounter Procedures Procedure Name Priority Date/Time Associated Diagnosis Comments TYPE + SCREEN PANEL STAT 09/02/2016 9 :40 AM CDT Pre-op testing CBC W AUTO DIFFERENTIAL STAT 09/02/2016 9:40 AM CDT Pre-op testing documented in this encounter Results * TYPE + SCREEN PANEL (09/02/2016 9:40 AM CDT) ABO A 09/02/2016 11:[address] [facility] Rh Type Positive 09/02/2016 11:[address] [facility] Comment:History check perfor med. No retype required. Antibody Screen Negative 09/02/2016 11:[address] [facility] Blood Bank BLOOD SPECIMEN / Unknown Venipuncture / Unknown 09/02/2016 9:40 AM CDT 09/02/2016 9:56 AM CDT Mert Salmeron Jr., MD LAB - BLOOD BANK ORDERABLES [facility] [address] * CBC W AUTO DIFFERENTIAL (09/02/2016 9:40 AM CDT) WBC 7.0 4.4 - 10.7 x10E9/L 09/02/2016 10:04 AM [facility] WBC Corrected x10E9/L 09/02/2016 10:04 AM [facility] RBC 4.60 3.80 - 5.20 x10E12/L 09/02/2016 10:04 AM [facility] Hemoglobin 14.0 12.0 - 15.6 gm/dL 09/02/2016 10:04 AM [facility] Hematocrit 40.7 35.9 - 45.5 % 09/02/2016 10:04 AM [facility] MCV 88.5 80.7 - 98.3 fl 09/02/2016 10:04 AM [facility] MCH 30.4 26.7 - 34.0 pg 09/02/2016 10:04 AM [facility] MCHC 34.4 30.8 - 35.9 gm/dL 09/02/2016 10:04 AM [facility] Platelet Count 248 153 - 416 x10E9/L 09/02/2016 10:04 AM [facility] RDW-CV 13.2 12.1 - 14.9 % 09/02/2016 10:04 AM [facility] MPV 9.7 9.4 - 12.9 fl 09/02/2016 10:04 AM [facility] Neutrophils % 59.0 44.0 - 73.0 % 09/02/2016 10:[address] [facility] Lymphocytes % 29.7 20.0 - 43.0 % 09/02/2016 10:[address] [facility] Monocytes % 8.5 5.0 - 13.0 % 09/02/2016 10:[address] [facility] Eosinophils % 2.3 0.0 - 6.0 % 09/02/2016 10:[address] [facility] Basophils % 0.4 0.0 - 2.0 % 09/02/2016 10:[address] [facility] Immature Granulocytes 0.1 0 - 1 % 09/02/2016 10:[address] [facility] Neutrophil Absolute 4.11 2.01 - 7.14 x10E9/L 09/02/2016 10:[address] [facility] Lymphocytes Absolute 2.07 1.07 - 3.94 x10E9/L 09/02/2016 10:[address] [facility] Monocytes Absolute 0.59 0.26 - 1.07 x10E9/L 09/02/2016 10:[address] [facility] Eosinophils Absolute 0.16 0 - 0.47 x10E9/L 09/02/2016 10:[address] [facility] Basophils Absolute 0.03 0 - 0.08 x10E9/L 09/02/2016 10:[address] [facility] Immature Granulocytes Absolute 0.01 0.00 - 0.06 x10E9/L 09/02/2016 10:[address] [facility] nRBC Auto 0 /100 WBC 09/02/2016 10:[address] [facility] Blood BLOOD SPECIMEN / Unknown Venipuncture / Unknown 09/02/2016 9:40 AM CDT 09/02/2016 9:56 AM CDT Mert Salmeron Jr., MD LAB - HEMATOLOGY ORDERABLES [facility] [address] [place] [address] documented in this encounter Visit Diagnoses Diagnosis Pre-op testing- Primary Preoperative examination, unspecified documented in this encounter Care Teams Commodity Supervisor Relationship Specialty Start Date End Date Yusef Aleman MD [address] [place] [address] PCP - General Family Medicine 09/02/16 02/03/18 documented as of this encounter
--- OUTSIDE RECORDS SUMMARY | 2024-04-11 00:41 | XMS_ITS | Encounter Summary ---
Author Organization [facility] Address [address] [place] [address] Care Team Providers Care Metal Checker Name Role Phone Yusef Aleman MD Primary Care Provider Reason for Visit * Auth/Cert Specialty Diagnoses [...] Expiration Date Visits Re quested Visits Authorized [id number] 1 1 Encounter Details Date Type Department Care Team (Late st Contact Info) Description 09/10/2016 8:38 AM CDT Anesthesia Event [facility] [address] [place] [address] Yusef Oscar MD [address] [place] [address] Glenn Bob DO [address] [facility] [place] [address] Anesthesia Record Procedure Summary Procedure Name Responsible Anesthesiologist Anesthesia Start Time Anesthesia Stop Time DIAGNOSTIC LAPAROSCOPY, EXCISION OF ENDOMETRIOSIS WITH CO2 LASER (Abdomen) Yusef Oscar MD 09/10/16 0838 09/10/16 1156 Events Date Time Event Comment 09/10/2016 0838 An Start 0838 An Start Data 0838 PT Reassessment 0842 An Induction 0845 An Intubation 0852 0908 Time Out Anesthesia part icipated in timeout at the time documented in the record by nursing 1146 Extubation 1148 an stop data 1148 Electnc Sig 1148 ANPTO2 1156 Handoff Checklist follo wed: 1. Identification of patient 2. Identification of responsible nurse 3. Discussion of pertinent medical history 4. Discussion of surgical/procedure course 5. Intraoperative anesthetic management and concerns 6. Expectations/plans for the early post-procedure period 7. Opportunity for questions and acknowledgement of report 1156 An Stop Meds Name Total midazolam 2 mg/2mL injection 2 mg fentaNYL 250 mcg/5mL injection 250 mcg lidocaine 2% injection (20 mg/ml) 20 mg propofol 200mg/20mL injection 200 mg succinylcholine 20 mg/ml injection 120 m g rocuronium 50mg/5mL injection 90 mg glycopyrrolate 1mg/5mL injection 0.6 mg ondansetron 4 mg/2mL injection 4 mg ketorolac 30 mg/ml injection 30 mg neostigmine 10mg/10mL injection 3 mg dexamethasone 4 mg/ml injection 4 mg cefOXitin (MEFOXIN) 2,000 mg in 50 mL IV PB 2 g HYDROmorphone 2 mg/ml injection 1.4 mg lactated ringers infusion 2,800 mL * Agents Name Insp. N2O Exp. Desflurane O2 Air Insp. Desflurane N2O * Blood No blood administrations on file. Lines, Drains, and Airways Type Details Placement Removal Peripheral IV Date: 09/10/16; Time : 0620; Orientation: Right; Placed By: richard rosales rn; Tolerance: Well 09/10/16 0620 by Hilaria Gant RN 09/11/16 1230 by Tiff Guerrero RN ETT Date: 09/10/16; Time : 0851; Placed By: Won Abdullahi APRN-TEST DEVELOPMENT ENGINEER; Vent: easy mask; Induction: Standard IV; Blade Type: Gibson; Blade Size: 2; Laryngoscopy View: Grade 1 (full cords); Tube: Endotracheal Tube; Placement: Oral; Tube Size(mm): 7 MM; Depth of Insertion: 21 CM; Measured From: lips; Cuff Infated: Air; Cuff Vol(mL): 8 mL; Verified By: Direct visualization, Bilateral breath sounds, Chest Auscultation, CO2 Monitor 09/10/16 0851 by Won Abdullahi APRN-CRNA 09/10/16 1146 by Won Abdullahi APRN-CRNA RETIRED Procedural Site 09/10/16; 0928; Abdomen; Laparoscopic; 09/11/16; 1850 09/10/16 0928 by Jocelin Hussein RN 09/11/16 185 by Generic, Auto Release documented in this [...] on file documented as of this encounter Progress Notes * Asad Hearn MD - 09/10/2016 1:23 PM CDT ANESTHESIA POSTPROCEDURE EVALUATION Airam Munoz is a 36 y.o. female Temp: 97.7 ??F Pulse: 77 Resp: 11 BP: 108/56 SpO2: 96 % Pain Rating Score #1: 0 Anesthesia Type: general Mental status: sufficiently recovered from acute administration of anesthesia to participate in theevaluation. Level of consciousness: awake No numbness, tingling or visual disturbances present. General appearance: well-appearing Respiratory function: natural airway. Cardiac: stable Pain: comfortable/acceptable PONV: None Postop hydration: adequate. Patient may be released from anesthesia care. Perioperative Complications: No value filed. ASA/AQI Tracking Events: No value filed. documented in this encounter Procedure Notes * Won Abdullahi APRN-CRNA - 09/10/2016 8:50 AM CDTAssociated Order(s): ENDOTRACHEAL TUBE NOTE Endotracheal Tube Placement: Patient Location: OR Sedation: under general anesthesia. Indication for Airway Management: anesthesia. Pretreatment: 100% O2. Induction: standard IV Patient position: supine. Mask Ventilation: easy. Blade Type: Gibson Blade Size: 2 Laryngoscopy View: grade 1 (full cords) Device: endotracheal tube Placement: oral Tube Size (MM): 7 Depth of Insertion (CM): 21 Measured From: lips Cuff volume (mL): 8 Cuff Inflated With: air Placement Verified By: direct visualization, bilateral breath sounds, chest auscultation and CO2 monitor Difficult Airway? No. Performed By: WON ABDULLAHI. documented in this encounter Consult Notes * Yusef Oscar MD - 09/10/2016 6:35 AM CDT Pre-anesthesia Evaluation Procedure(s): DIAGNOSTIC LAPAROSCOPY, EXCISION OF ENDOMETRIOSIS WITH CO2 LASER (Abdomen) LAPAROSCOPIC APPENDECTOMY (Abdomen) TOTAL LAPAROSCOPIC HYSTERECTOMY WITH SALPINGECTOMY--BILATERAL AND POSSIBLE OOPHORECTOMY--RIGHT WITHOVARIAN CONSERVATION--LEFT (Abdomen) CYSTOSCOPY WITH HYDRODISTENSION #### SCIP #### Diagnosis: Pelvic pain in female [R10.2];Endometriosis [N80.9];Vaginis* Vital Signs: Temp: 97.7 ??F (09/10 617) Pulse: 60 (09/10 617) Resp: 16 (09/10 617) BP: 104/66 (09/10 617) SpO2: 98 % (09/10 617) BMI: Estimated body mass index is 33.25 kg/(m^2) as calculated from the following: Height as of this encounter: 1.676 m (5' 6 ). Weight as of this encounter: 93.4 kg (206 lb). History: Past Medical History: Diagnosis Date ??? Endometriosis ??? Seasonal allergies Past Surgical History: Procedure Laterality Date ??? Bilateral Tubal Ligation (BTL) ??? DILATION AND CURETTAGE mAB ??? Dilation and Curettage x 2 ??? ENDOMETRIAL ABLATION ??? HYSTEROSCOPY ??? LAPAROSCOPY, DIAGNOSTIC x 2 reports that she has never smoked. She has never used smokeless tobacco. She reports that she does not drink alcohol or use illicit drugs. Allergies: has No Known Allergies. Medications: Home Medications for Outpatients: No current outpatient prescriptions on file. Home Medications for Inpatients: Prescriptions Prior to Admission Medication Sig Note Dispense Refill ??? cetirizine (ZYRTEC) 10 MG tablet Take 10 mg by mouth once daily 09/02/2016: Received from: [facility] Received Sig: Take 10 mg by mouth daily. ??? fluticasone propionate (FLONASE) 50 MCG/ACT nasal spray [place] 1 [place] into each nostril once daily 09/02/2016: Received from: [facility] Received Si Sprays by Nasal route daily. Use in each nostril as directed. ??? naproxen EC (EC-NAPROSYN) 500 MG tablet Take 500 mg by mouth 2 times daily 09/02/2016: Received from: [facility] ??? traMADol (ULTRAM) 50 MG tablet Take 50 mg by mouth every 6 hours 09/02/2016: Received from: [facility] Received Sig: Take 1 tablet by mouth Every 6 hours as needed for Pain. ??? cyclobenzaprine (FLEXERIL) 5 MG tablet Take 5 mg by mouth 3 times daily as needed ??? HYDROcodone-acetaminophen (NORCO) 5-325 MG tablet Take 1 Tab by mouth every 4 hours as needed for Pain ??? norethindrone (AYGESTIN) 5 MG tablet Take 1 Tab by mouth once daily 09/02/2016: Received from: [facility] Received Sig: Take 1 tablet by mouth Daily. ??? NIFEdipine (PROCARDIA) 10 MG capsule Take 1 Cap by mouth every 6 hours. (Patient not taking: Reported on 09/02/2016) 90 Cap 0 ??? Vit-Fe Fumarate-FA ( VITAMIN) 28-0.8 MG tablet Take 1 Tab by mouth once daily. ??? famotidine (PEPCID) 20 MG tablet Take 20 mg by mouth at bedtime. Inpatient Medications: Current Facility-Administered Medications Medication Dose Route Frequency Provider Last Rate Last Dose ??? lactated ringers infusion Intravenous pre-OP continuous Glenn Bob DO 20 mL/hr at 09/10/16 0615 ??? lidocaine (XYLOCAINE MPF) 1 % injection Infiltration pre-OP multiple Glenn Bob DO 2 mL at 09/10/16 0615 ??? famotidine (PEPCID) tablet 20 mg 20 mg Oral Once PRN Glenn Bob DO ??? cefOXitin (MEFOXIN) 2,000 mg in 50 mL IVPB 2 g Intravenous pre-OP once Mert Salmeron Jr., MD ??? scopolamine (TRANSDERM-SCOP) 1.5 MG patch 1.5 mg 1.5 mg Transdermal pre-OP once Mert Salmeron Jr., MD 1.5 mg at 09/10/16 0616 Physical Exam: NPO status: no solids since midnight, no liquids within 2 hours Oriented to person, place and time Airway: II Neck ROM: full Pulmonary exam: breath sounds CTA Heart sounds: S1 S2 Review of Systems: Negative for anesthesia complications Reviewed labs Plan for Anesthesia: Reviewed allergies, history and medications ASA Score: 2. Anesthesia plan: general Planned method of induction: intravenous Planned postop destination: PACU Planned administration of opioids for postop analgesia Anesthesia plan, risks and benefits discussed with patient Anesthesia consent: obtained Plan accepted yes Discussed anesthesia plan with: TEST DEVELOPMENT ENGINEER. Recent Labs Component Name 09/10/16 0607 HCGURINE Negative Recent Labs Component Name 09/02/16 0940 WBC 7.0 HGB 14.0 HCT 40.7 PLTCOUNT 248 documented in this encounter Plan of Treatment Not on file documented as of this encounter Procedures Procedure Name Priority Date/Time Associated Diagnosis Comments ENDOTRACHEAL TUBE NOTE Routine 09/10/2016 8:51 AM CDT Procedure Note - Won Abdullahi APRN-TEST DEVELOPMENT ENGINEER - 09/10/2016 8:50 AM CDTThis note is in progress. Endotracheal Tube Placement: Patient Location: OR Sedation: under general anesthesia. Indication for Airway Management: anesthesia. Pretreatment: 100% O2. Induction: standard IV Patient position: supine. Mask Ventilation: easy. Blade Type: Gibson Blade Size: 2 Laryngoscopy View: grade 1 (full cords) Device: endotracheal tube Placement: oral Tube Size (MM): 7 Depth of Insertion (CM): 21 Measured From: lips Cuff volume (mL): 8 Cuff Inflated With: air Placement Verified By: direct visualization, bilateral breath sounds,chest auscultation and CO2 monitor Difficult Airway? No. Performed By: WON ABDULLAHI documented in this encounter Visit Diagnoses Not on filedocumented in this encounter Administered Medications Inactive Administered Medications - up to 3 most recent administrations Medication Order MAR Action Action Date Dose Rate Site cefOXitin (MEFOXIN) 2,000 mg in 50 mL IVPB 2,000 mg (2 g), at 100 mL/hr, Intravenous, PRE-OP ONCE, 1 dose, On Thu09/10/16 at 0555 $ Given 09/10/2016 8:37 AM CDT 2 g dexamethasone (DECADRON) injection Intravenous, PRN, Nausea/Vomiting, Starting on Thu09/10/16 at 0901, Until Thu09/10/16 at 1157, Anesthesia Intra-op $ Given 09/10/2016 9:01 AM CDT 4 mg fentaNYL (PF) (SUBLIMAZE) injection PRN, Starting on Thu09/10/16 at 0842, Until Thu09/10/16 at 1157, Anesthesia Intra-op $ Given 09/10/2016 9:23 AM CDT 50 mcg $ Given 09/10/2016 9:10 AM CDT 50 mcg $ Given 09/10/2016 8:42 AM CDT 150 mcg glycopyrrolate (ROBINUL) injection PRN, Starting on Thu09/10/16 at 1134, Until Thu09/10/16 at 1157, Anesthesia Intra-op $ Given 09/10/2016 11:34 AM CDT 0.6 mg HYDROmorphone (DILAUDID) injection PRN, Starting on Thu09/10/16 at 1019, Until Thu09/10/16 at 1157, Anesthesia Intra-op $ Given 09/10/2016 11:38 AM CDT 0.2 mg $ Given 09/10/2016 11:37 AM CDT 0.2 mg $ Given 09/10/2016 10:37 AM CDT 0.4 mg ketorolac (TORADOL) injection PRN, Starting on Thu09/10/16 at 1132, Until Thu09/10/16 at 1157, Anesthesia Intra-op $ Given 09/10/2016 11:32 AM CDT 30 mg lactated ringers infusion at 20 mL/hr, Intravenous, PRE-OP CONTINUOUS, Starting on Thu09/10/16 at 0600, Until Thu09/10/16 at 1317, Pre-op $ New Bag/Syringe 09/10/2016 12:20 PM CDT 20 mL/hr $ New Bag/Syringe 09/10/2016 10:00 AM CDT $ New Bag/Syringe 09/10/2016 9:00 AM CDT lidocaine (XYLOCAINE) 2 % injection PRN, Starting on Thu09/10/16 at 0842, Until Thu09/10/16 at 1157, Anesthesia Intra-op $ Given 09/10/2016 8:42 AM CDT 20 mg midazolam (VERSED) injection Intravenous, PRN, Starting on Thu09/10/16 at 0837, Until Thu09/10/16 at 1157, Anesthesia Intra-op $ Given 09/10/2016 8:37 AM CDT 2 mg neostigmine injection Intravenous, PRN, Starting on Thu09/10/16 at 1134, Until Thu09/10/16 at 1157, Anesthesia Intra-op $ Given 09/10/2016 11:34 AM CDT 3 mg Ondansetron HCl (ZOFRAN) injection PRN, Nausea/Vomiting, Starting on Thu09/10/16 at 1111, Until Thu09/10/16 at 1157, Anesthesia Intra-op $ Given 09/10/2016 11:11 AM CDT 4 mg propofol (DIPRIVAN) injection PRN, Starting on Thu09/10/16 at 0842, Until Thu09/10/16 at 1157, Anesthesia Intra-op $ Given 09/10/2016 8:42 AM CDT 200 mg rocuronium (ZEMURON) injection Intravenous, PRN, Starting on Thu09/10/16 at 0842, Until Thu09/10/16 at 1157, Anesthesia Intra-op $ Given 09/10/2016 10:17 AM CDT 20 mg $ Given 09/10/2016 9:41 AM CDT 20 mg $ Given 09/10/2016 8:47 AM CDT 45 mg succinylcholine (ANECTINE) injection PRN, Starting on Thu09/10/16 at 0842, Until Thu09/10/16 at 1157, Anesthesia Intra-op $ Given 09/10/2016 8:42 AM CDT 120 mg documented in this encounter Care Teams Metal Checker Relationship Specialty Start Date End Date Yusef Aleman MD [address] [place] [address] PCP - General Family Medicine 09/02/16 02/03/18 documented as of this encounter
--- OUTSIDE RECORDS SUMMARY | 2024-04-11 00:41 | XMS_ITS | Encounter Summary ---
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 12:34 AM CONTACT CENTER ANALYST 75 mL/hr magnesium sulfate infusion in sterile IV fluid 2 g/hr (rounded to 50 mL/hr), Intravenous, CONTINUOUS, Starting on Elsi 03/04/12 at 0015, Until Elsi 03/04/12 at 1600, 2 g/hr = 50 ml/hr $ New Bag/Syringe 03/04/2012 6:12 AM CONTACT CENTER ANALYST 2 g/hr 50 mL/hr Rate Change 03/04/2012 12:09 AM CONTACT CENTER ANALYST 2 g/hr 50 mL/hr NIFEdipine (PROCARDIA) capsule 10 mg 10 mg, Oral, EVERY 6 HOURS, First dose on Thu03/04/12 at 1600, Until Discontinued $ Given 03/05/2012 3:36 PM CONTACT CENTER ANALYST 10 mg $ Given 03/05/2012 9:43 AM CONTACT CENTER ANALYST 10 mg $ Given 03/05/2012 4:21 AM CONTACT CENTER ANALYST 10 mg ondansetron (ZOFRAN) injection 4 mg 4 mg, Intravenous, EVERY 6 HOURS PRN, Nausea/Vomiting, Starting on Thu03/03/12 at 2342, Until Thu03/05/12 at 1842 $ Given 03/05/2012 2:45 AM CONTACT CENTER ANALYST 4 mg vitamin with iron tablet 1 Tab 1 tablet, Oral, DAILY WITH BREAKFAST, First dose on Thu03/04/12 at 0800, Until Discontinued $ Given 03/05/2012 8:05 AM CONTACT CENTER ANALYST 1 tablet $ Given 03/04/2012 8:45 AM CONTACT CENTER ANALYST 1 tablet zolpidem (AMBIEN) tablet 5 mg 5 mg, Oral, AT BEDTIME PRN, Insomnia, Starting on Thu03/03/12 at 2342, Until Thu03/05/12 at 1842 $ Given 03/04/2012 11:29 PM CONTACT CENTER ANALYST 5 mg $ Given 03/04/2012 2:21 AM CONTACT CENTER ANALYST 5 mg documented in this encounter Active and Recently Administered Medications Times are shown in CONTACT CENTER ANALYST. Scheduled Medication Order 03/03/2012 03/04/2012 03/05/2012 0.9% NaCl injection 3 mL (CANCELED) 3 mL, Intracatheter, EVERY 8 HOURS, First dose on Thu03/05/12 at 1400, Until Discontinued 1216 ($ Given - Provider: Georgiana Jiménez, CHE[place]) acetaminophen (TYLENOL) tablet 1,000 mg (COMPLETED) 1,000 mg, Oral, NOW, 1 dose, On Thu03/04/12 at 0030, Maximum allowable Acetaminophen amount = 4 Grams (4000 mg) / 24 hours. 0032 ($ Given - Provider: Sushma Pineda, [place]) acetaminophen (TYLENOL) tablet 1,000 mg (COMPLETED) 1,000 mg, Oral, ONCE, 1 dose, On Thu03/04/12 at 0930, Maximum allowable Acetaminophen amount = 4 Grams (4000 mg) / 24 hours. 0938 ($ Given - Provider: Pily Grullon, CHE[place]) acetaminophen (TYLENOL) tablet 1,000 mg (COMPLETED) 1,000 mg, Oral, ONCE, 1 dose, On Thu03/04/12 at 1630, Maximum allowable Acetaminophen amount = 4 Grams (4000 mg) / 24 hours. 1618 ($ Given - Provider: Ricarda Delvalle, RN) ampicillin (OMNIPEN) IVPB 1 g (CANCELED) 1 g, at 200 mL/hr, Intravenous, EVERY 4 HOURS, First dose on Thu03/04/12 at 0345, Until Discontinued 0345 (Not Administered - Provider: Sushma Pineda RN - Reason: See Comments - Comment: Medication due at 0500)0528 ($ Given - Provider: Sushma Pineda RN)0558 (Rx Stopped - Provider: Sushma Pineda RN)0845 ($ Given - Provider: Pily Grullon, RN)0915 (Rx Stopped - Provider: Pily Grullon, RN) ampicillin (OMNIPEN) IVPB 2 g (COMPLETED) 2 g, at 200 mL/hr, Intravenous, ONCE, 1 dose, On Thu03/04/12 at 0000 0052 ($ Given - Provider: Sushma Pineda RN)0122 (Rx Stopped - Provider: Sushma Pineda RN) ampicillin (OMNIPEN) IVPB 2 g (CANCELED) 2 g, at 200 mL/hr, Intravenous, EVERY 4 HOURS, First dose (after last modification) on Thu03/04/12 at 1300, Until Discontinued 1342 ($ Given - Provider: Jennifer Garcia RN)1414 (Rx Stopped - Provider: Jennifer Garcia RN)1642 ($ Given - Provider: Ricarda Delvalle, CHEVY)1712 (Rx Stopped - Provider: Ricarda Delvalle, CHEVY)2144 ($ Given - Provider: Rony Horta RN)2214 (Rx Stopped - Provider: Rony Horta RN) 0112 ($ Given - Provider: Rony Horta RN)0142 (Rx Stopped - Provider: Rony Horta RN) ampicillin (OMNIPEN) IVPB 2 g (CANCELED)(Linked Group 1) 2 g, at 200 mL/hr, Intravenous, EVERY 6 HOURS, First dose (after last modification) on Thu03/05/12 at 0600, Until Discontinued 0610 ($ Given - Provider: Rony Horta RN)0640 (Rx Stopped - Provider: Rony Horta RN)1211 ($ Given - Provider: Georgiana Jiménez, CHEVY)1241 (Rx Stopped - Provider: Georgiana Jiménez, CHEVY) betamethasone acet & sod phos (CELESTONE) injection 12 mg (COMPLETED) 12 mg, Intramuscular, ONCE, 1 dose, On Thu03/04/12 at 1700, Protect from light. 1724 ($ Given - Provider: Ricarda Delvalle, CHEVY) famotidine (PEPCID) tablet 20 mg (CANCELED) 20 mg, Oral, DAILY, First dose on Thu03/04/12 at 0900, Until Discontinued 0845 ($ Given - Provider: Pily Grullon, CHEVY) famotidine (PEPCID) tablet 20 mg (CANCELED) 20 mg, Oral, 2 TIMES DAILY, First dose (after last modification) on Thu03/05/12 at 0900, Until Discontinued 0805 ($ Given - Provider: Georgiana Jiménez, CHE[place]) NIFEdipine (PROCARDIA) capsule 10 mg 10 mg, Oral, EVERY 6 HOURS, First dose on Thu03/04/12 at 1600, Until Discontinued 1558 ($ Given - Provider: Ricarda Delvalle RN)2213 ($ Given - Provider: Rony Horta RN) 0421 ($ Given - Provider: Rony Horta RN)0943 ($ Given - Provider: Georgiana Jiménez, CHEVY)1536 ($ Given - Provider: Georgiana Jiménez, CHEV[place]) vitamin with iron tablet 1 Tab (CANCELED) 1 tablet, Oral, DAILY WITH BREAKFAST, First dose on Thu03/04/12 at 0800, Until Discontinued 0845 ($ Given - Provider: Pily Grullon, CHEV[place]) 0805 ($ Given - Provider: Georgiana Jiménez, CHEVY) Continuous Medication Order 03/03/2012 03/04/2012 03/05/2012 lactated ringers infusion (CANCELED) at 75 mL/hr, Intravenous, CONTINUOUS, Starting on Thu03/04/12 at 0015, Until Thu03/04/12 at 1639, Start IV with 18 gauge angiocath. 0034 (Current Rate - Provide r: Sushma Pineda, [place]) magnesium sulfate infusion in sterile IV fluid () 2 g/hr (rounded to 50 mL/hr), Intravenous, CONTINUOUS, Starting on Thu03/04/12 at 0015, Until Thu03/04/12 at 1600, 2 g/hr = 50 ml/hr 0009 (Rate Change - Provider : Sushma Pineda, RN)0612 ($ New Bag/Syringe - Provider: Sushma Pineda, RN) PRN Medication Order 03/03/2012 03/04/2012 03/05/2012 0.9% NaCl infusion (CANCELED) 20 mL/hr, Intravenous, CONTINUOUS PRN, IVPB flush, Starting on Elsi 03/04/12 at 2134, Until Thu03/05/12 at 1842, Please use 250 ml bag. To be used for IVPB flush. Change bag every 24 hours. 2143 ($ New Bag/Syringe - Provider: Rony Horta, RN) acetaminophen (TYLENOL) tablet 1,000 mg (CANCELED) 1,000 mg, Oral, EVERY 4 HOURS PRN, Pain, Mild Pain, Starting on Elsi 03/04/12 at 2216, Until Thu03/05/12 at 1842, Maximum allowable Acetaminophen amount = 4 Grams (4000 mg) / 24 hours. 223 ($ Given - Provider: Sandra Bustillos RN) alum & mag hydroxide-simeth (MAALOX ADVANCED) suspension 30 mL (CANCELED) 30 mL, Oral, EVERY 4 HOURS PRN, Heartburn, Starting on Thu03/03/12 at 2341, Until Thu03/05/12 at 1842, Shake well before using. 0243 ($ Given - Provider: Rony Horta, RN)0610 ($ Given - Provider: Rony Horta, RN) ondansetron (ZOFRAN) injection 4 mg (CANCELED) 4 mg, Intravenous, EVERY 6 HOURS PRN, Nausea/Vomiting, Starting on Thu03/03/12 at 2342, Until Thu03/05/12 at 1842 0245 ($ Given - Provider: Rony Horta, RN) zolpidem (AMBIEN) tablet 5 mg (CANCELED) 5 mg, Oral, AT BEDTIME PRN, Insomnia, Starting on Thu03/03/12 at 2342, Until Thu03/05/12 at 1842 0221 ($ Given - Provider: Sushma Pineda, RN)2329 ($ Given - Provider: Rony Horta, RN) Linked Groups Order Group 1: ampicillin (OMNIPEN) IVPB 2 g (CANCELED)Jump to med 2 g, at 200 mL/hr, Intravenous, EVERY 6 HOURS, First dose (after last modification) on Thu03/05/12 at 0600, Until Discontinued documented in this encounter Care Teams Advanced Quality Engineer Relationship Specialty Start Date End Date Judy Banks MD [address] [place] [address] PCP - General 03/03/12 09/01/16 documented as of this encounter
--- OUTSIDE RECORDS SUMMARY | 2024-04-11 00:41 | XMS_ITS | Encounter Summary ---
Author Organization [facility] Address [address] [place] [address] Care Team Providers Care Ad Operations Associate Name Role Phone Yusef Aleman MD Primary Care Provider [phone] Reason for Visit * Auth/Cert Specialty Diagnoses [...] Expiration Date Visits Re quested Visits Authorized [id number] 1 1 Encounter Details Date Type Department Care Team (Latest Contact Info) Description 09/10/2016 5:28 AM CDT - 09/11/2016 12:50 PM CDT Hospital Encounter [facility] 2W SURGICAL [address] [place] [address] Mert Salmeron Jr., MD [address] [facility] [address] [place] [address] Surgery General Discharge Disposition: Home or Self [...] CDT Discharged home per after seen by equipment worker staff and . Has been up and [...] hysterectomy with bilateral salpingectomy, right oophorectomy Service: [facility] Service Consults: none History: This 36 y.o. [...] MCG/ACT nasal spray Commonly known as: FLONASE [place] 1 [place] into each nostril once daily vitamin 28-0.8 [...] fluticasone propionate (FLONASE) 50 MCG/ACT nasal spray [place] 1 [place] into each nostril once daily 10/22/2015 polyethylene [...] of this encounter Progress Notes * Nissa Granados RN - 09/11/2016 10:56 AM CDT Case Management Initial Assessment Case Management screen completed, welcome letter given. Met with patient Lives with:: Spouse Family Support (name and phone): Extended Emergency Contact Information Primary Emergency Contact: Asad Munoz [facility] Mobile Relation: Spouse Secondary Emergency Contact: Imtiaz James Relation: Other Anticipated Discharge Date: Anticipated Discharge [...] requests: Transportation at discharge: Family Transportation to appointments:Transportation to Appointments: Drives self Comments: Patient lives with her and children. She has steps and stairs to use but she states they pose no problem. to pick her up when discharged. Patient has appointment with Dr. Salmeron on 09/26 Will continue to follow. For any questions or needs please contact: Elementary School Social Worker Name/Phone number: Nissa Granados RN [phone] * Aurora Barnett RN - 09/11/2016 6:42 AM CDT Patient resting in bed. Pain controlled overnight. No c/o nausea. Voiding clear yellow urine without difficulty. Aurora Barnett RN 09/11/2016 6:43 AM * Mert Salmeron Jr., MD - 09/11/2016 6:02 AM CDT R2 ARCHITECTURAL EXAMINER Progress Note Subjective: The patient is without [...] Sushma Talley MD 09/11/2016 6:02 AM Pager: [phone] After 17:30 and before 7:00: call [phone] ARCHITECTURAL EXAMINER Attending: Patient seen and examined. Agree with [...] Guerrero RN 09/10/2016 6:53 PM * Emily cMcoy MD - 09/10/2016 5:14 PM CDT R1 ARCHITECTURAL EXAMINER Progress Note Subjective: The patient underwent laparoscopic [...] Emily Mccoy MD 09/10/2016 5:14 PM Pager: [phone] After 17:30 and before 7:00: call [phone] documented in this encounter H&P Notes * [...] initiative, having done her own internet research, [employer]. Dr. Lucero Hood, her primary coagulating bath mixer. She is with her . ?? Patient describes being on Lupronetta (every 3 months), has had 4 injections, does help a lot. Previous ARCHITECTURAL EXAMINER was Dr. Judy Banks, who did laparoscopy, [...] year now), but cannot be [facility] [place] [facility]. Was on Mirena IUD before that, with [...] has had laparoscopy x2 (last 2014 with [facility]) to diagnose endometriosis. Ablation and biopsy was [...] СЕРГЕЙ Comments: no complications 1 SAB Comments: [facility] s/p D&C Obstetric Comments Denies h/o STDs and HIV. H/o abnormal pap 1 year ago with repeat normal and most recent pap normal.Regular menses Pocketed Spring Assembler History: STDs: None Menses: Regular Paps: History [...] results for input(s): ABORH in the last 81383 hours. No results for input(s): WBC, HGB, HCT, PLTCOUNT in the last 92464 hours. No results for input(s): SODIUM, POTASSIUM, CHLORIDE, CO2, BUN, CREATININE, GLUCOSE, CALCIUM in thelast 43685 hours. TVUS: No evidence of adenomyosis and [...] ureters). Emily Mccoy MD 09/01/2016 11:14 AM HEAD SILVERMAN Attending Complete history and physical was reviewed, and no change has occurred in the patient's condition since completion of the history and physical. Mert Salmeron Jr., MD 09/10/2016 7:48 AM documented in this encounter OR Notes * OR PostOp - Ada Anton - 09/11/2016 5:28 AM CDT MS3 ARCHITECTURAL EXAMINER Post-Op Note Airam Munoz Date: 09/11/2016, 5:29 [...] Temp (24hrs) Max:98.6 ??F Vitals: 09/10/16 1800 09/10/16 1953 09/11/16 0011 09/11/16 0523 BP: 116/63 110/74 104/55 111/64 Pulse: 79 76 83 83 Resp: 18 18 Temp: 98.1 ??F 98.6 ??F 98.5 ??F SpO2: 98% 98% 100% 99% Weight: Intake/Output Summary (Last 24 hours) at 09/11/16 0529 Last data filed at 09/11/16 0523 Gross per 24 hour Intake 5812 ml [...] Resident - Assisting Anesthesiologist: Yusef Oscar MD ASSOCIATE DIRECTOR FINANCIAL AID: Rufina Hussein APRN-ASSOCIATE DIRECTOR FINANCIAL AID; Renee Abdullahi APRN-ASSOCIATE DIRECTOR FINANCIAL AID Pre-Op Diagnosis Codes: * Pelvic pain in [...] EXAM (STL) Mert Salmeron Jr., MD 09/10/2016 0934 C : Left posterior cul de sac Path Tissue GROSS + MICRO EXAM (STL) Mert Salmeron Jr., MD 09/10/2016 0934 D : Right uterosacral ligament Path Tissue [...] female Urgency of urination Special Needs [facility] ([employer]) NOTIFIED WITH CONFIRMATION # [id number]--28/18 LG HYSTERECTOMY TOTAL LAPAROSCOPIC WITH SALPINGECTOMY AND/OR OOPHORECTOMY 09/10/2016 8:25 AM CDT Pelvic pain in female Endometriosis Vaginismus Chronic pelvic pain in female Urgency of urination Special Needs [facility]--[employer] ([employer]) NOTIFIED WITH CONFIRMATION # [id number]--49/18 LG LAPAROSCOPIC APPENDECTOMY 09/10/2016 8:25 AM CDT Pelvic pain in female Endometriosis Vaginismus Chronic pelvic pain in female Urgency of urination Special Needs NEEDS [facility]--[employer] ([employer]) NOTIFIED WITH CONFIRMATION # [id number]--85/18 LG LAPAROSCOPIC FULGURATION/EXCISION LESION PELVIC/OVARY (LASER) 09/10/2016 8:25 AM CDT Pelvic pain in female Endometriosis Vaginismus Chronic pelvic pain in female Urgency of urination Special Needs NEEDS [facility]--[employer] ([employer]) NOTIFIED WITH CONFIRMATION # [id number]--58/18 LG HCG URINE QUALITATIVE - POINT OF [...] - 10.7 x10E9/L 09/11/2016 3:47 AM CDT [facility] WBC Corrected x10E9/L 09/11/2016 3:47 AM CDT [facility] RBC 3.82 3.80 - 5.20 x10E12/L 09/11/2016 3:47 AM CDT [facility] Hemoglobin 11.7(L) 12.0 - 15.6 gm/dL 09/11/2016 3:47 AM CDT [facility] Hematocrit 34.3(L) 35.9 - 45.5 % 09/11/2016 3:47 AM CDT [facility] MCV 89.8 80.7 - 98.3 fl 09/11/2016 3:47 AM CDT [facility] MCH 30.6 26.7 - 34.0 pg 09/11/2016 3:47 AM CDT [facility] MCHC 34.1 30.8 - 35.9 gm/dL 09/11/2016 3:47 AM CDT [facility] Platelet Count 223 153 - 416 x10E9/L 09/11/2016 3:[address] [facility] RDW-CV 13.2 12.1 - 14.9 % 09/11/2016 3:[address] [facility] MPV 10.3 9.4 - 12.9 fl 09/11/2016 3:47 AM CDT [facility] Neutrophils % 67.9 44.0 - 73.0 % 09/11/2016 3:47 AM CDT [facility] Lymphocytes % 20.7 20.0 - 43.0 % 09/11/2016 3:47 AM CDT [facility] Monocytes % 10.6 5.0 - 13.0 % 09/11/2016 3:47 AM CDT [facility] Eosinophils % 0.3 0.0 - 6.0 % 09/11/2016 3:47 AM CDT [facility] Basophils % 0.2 0.0 - 2.0 % 09/11/2016 3:47 AM CDT [facility] Immature Granulocytes 0.3 0 - 1 % 09/11/2016 3:[address] [facility] Neutrophil Absolute 7.23(H) 2.01 - 7.14 x10E9/L 09/11/2016 3:[address] [facility] Lymphocytes Absolute 2.20 1.07 - 3.94 x10E9/L 09/11/2016 3:[address] [facility] Monocytes Absolute 1.13(H) 0.26 - 1.07 x10E9/L 09/11/2016 3:[address] [facility] Eosinophils Absolute 0.03 0 - 0.47 x10E9/L 09/11/2016 3:[address] [facility] Basophils Absolute 0.02 0 - 0.08 x10E9/L 09/11/2016 3:[address] [facility] Immature Granulocytes Absolute 0.03 0.00 - 0.06 x10E9/L 09/11/2016 3:[address] [facility] nRBC Auto 0 /100 WBC 09/11/2016 3:[address] [facility] Blood BLOOD SPECIMEN / Unknown Lab Venipuncture / Unknown 09/11/2016 3:01 AM CDT 09/11/2016 3:33 AM CDT Eliana Todd MD LAB - HEMATOLOGY ORD ERABLES Performing Organization Address [facility]/State/[facility] Co de Phone Number [facility] [address] [place] [address] * GROSS + MICRO EXAM (STL) (09/10/2016 9:31 AM CDT) Case Report Surgical Pathology Report ? Case: [id number] ? Authorizing Provider: ??Mert Salmeron Jr., MD [...] - Appendix ? 09/11/2016 4:[address] [facility] Final Diagnosis A. Ligament, left [...] No pathologic diagnosis /SD/ns 09/11/2016 4:01 PM [facility] Gross Description The specimens are received [...] or exudate identified on the external surface. Helicopter Pilot Instructor section is submitted in F1. PD/scs 09/11/2016 4:01 PM [facility] Microscopic Description Sections from specimens A, [...] inflammation or organisms. /SD/ns 09/11/2016 4:01 PM [facility] Disclaimer All histochemical and/or immunohistochemical results are interpreted with controls that demonstrate appropriate staining reactions before reporting results. Note on use of immunocytochemistry reagents: This test was developed and its performance characteristic determined by [facility], Department of Laboratory Medicine. It has not been cleared or approved by the U.S. Food and Drug Administration (FDA). The FDA has determined that such clearance or approval is not necessary. The test is used for clinical purpose. It should not be regarded as investigational or for research. This laboratory is certified to perform high complexity testing. 09/11/2016 4:[address] [facility] Embedded Images 09/11/2016 4:[address] [facility] Pathology/Cytology ENTIRE LIGAMENT / Unknown 09/10/2016 [...] Jr., MD LAB - PATHOLOGY/ CYTOLOGY ORDERABLES Performing Organization Address [facility] Co de Phone Number [facility] [address] [place] [address] * HCG URINE QUALITATIVE - POINT OF CARE (IP) (09/10/2016 6:07 AM CDT) HCG Qual Urine Negative Negative [facility] QC Verified Yes Yes [facility] POC T TESTING Urine URINE / Unknown 09/10/2016 6 :07 AM CDT Mert Salmeron Jr., MD LAB - POINT OF C ARE ORDERABLES Performing Organization Address [facility] de Phone Number [facility] [address] [phone] documented in this encounter Visit Diagnoses Diagnosis Pelvic pain in female Unspecified symptom associated with female genital organs Endometriosis Vaginismus Chronic pelvic pain in female Unspecified symptom associated with female genital organs Urgency of urination documented in this encounter Administered Medications Inactive Administered Medications - up to 3 most recent administrations Medication Order MAR Action Action Date Dose Rate Site diphenhydrAMINE (BENADRYL) capsule 25 mg 25 mg, Oral, EVERY 6 HOURS PRN, Itching, Starting on Thu09/10/16 at 1347, Until Thu09/11/16 at 1350, Post-op docusate sodium (COLACE) capsule [...] Last dose on Thu09/11/16 at 0600, Post-op $ Given 09/11/2016 12:10 [...] at 1745, Until Elsi 09/11/16 at 1350 $ New Bag/Syringe 09/11/2016 5:33 [...] 0837 ($ Given - Provider: Renee Abdullahi APRN-ASSOCIATE DIRECTOR FINANCIAL AID) docusate sodium (COLACE) capsule 100 mg 100 mg, Oral, 2 TIMES DAILY, First dose on Thu09/10/16 at 1400, Until Discontinued, Post-op 1400 (Not Administered - Provider: Tiff Guerrero RN - Reason: Patient sleeping)1544 ($ Given - Provider: Tiff Guerrero RN)2127 ($ Given - Provider: Aurora Barnett RN) 0854 ($ Given - Provider: Tiff Guerrero, [place]) ketorolac (TORADOL) injection 30 mg (COMPLETED) 30 mg, Intravenous, EVERY 6 HOURS, 4 doses, First dose on Thu09/10/16 at 1400, Last dose on Elsi 09/11/16 at 0600, Post-op 1400 (Not Administered - [...] ($ New Bag/Syringe - Provider: Renee Abdullahi APRN-ASSOCIATE DIRECTOR FINANCIAL AID)1000 ($ New Bag/Syringe - Provider: Renee M Abdullahi, PROFESSOR OF PHYSICS-ASSOCIATE DIRECTOR FINANCIAL AID)1137 (Anesthesia Volume Adjustment - Provider: Rufina Hussein, PROFESSOR OF PHYSICS-ASSOCIATE DIRECTOR FINANCIAL AID)1220 ($ New Bag/Syringe - Provider: Zay Nichole [...] 1347, Until Elsi 09/11/16 at 1350, Post-op fentaNYL (PF) (SUBLIMAZE) [...] PACU 1220 ($ Given - Provider: Zay Nichole, RN)1230 ($ Given - Provider: Zay Nichole RN) ondansetron (disintegrating) (ZOFRAN ODT) tablet 4 mg (CANCELED) 4 mg, Oral, EVERY 6 HOURS PRN, Nausea/Vomiting, Starting on Thu09/10/16 at 1347, Until Thu09/10/16 at 1713, Allow tablet to dissolve on the tongue, Post-op 1612 ($ Given - Provider: Tiff Guerrero RN) ondansetron (ZOFRAN) injection 4 mg 4 mg, Intravenous, EVERY 6 HOURS PRN, Nausea/Vomiting, Starting on Thu09/10/16 at 1713, Until Elsi 09/11/16 at 1350 1842 ($ Given - Provider: Tiff Guerrero RN) oxyCODONE-acetaminophen (PERCOCET) 5-325 MG tablet 1-2 Tab [...] 4 HOURS PRN, Moderate Pain, Starting on Elsi 09/11/16 at 0613, Until Elsi 09/11/16 at 1350 0854 ($ Given - Provider: Tiff Guerrero RN) documented in this encounter Care Teams Ad Operations Associate Relationship Specialty Start Date End Date Yusef Aleman MD [address] [place] [address] PCP - General Family Medicine 09/02/16 02/03/18 documented as of this encounter
--- OUTSIDE RECORDS SUMMARY | 2024-04-11 00:41 | XMS_ITS | Encounter Summary ---
Author Organization [facility] Address [address] [facility] [place] [address] Care Team Providers Care National Secretary Name Role Phone Yusef Aleman MD Primary Care Provider [phone] Reason for Visit * Reason Comments Employment Physical Encounter Details Date Type Department Care Team (Late st Contact Info) Description 08/31/2017 4:20 PM CDT Office Visit [facility] [address] [address] [facility] Physical exam, pre-employment (Primary Dx); PPD positive Social History Tobacco Use Types Packs/Day Years [...] Sign Reading Time Taken Comments Blood Pressure 118/70 08/31/2017 4:08 PM CDT Pulse 69 08/31/2017 4:08 PM CDT Temperature 37.2 ??C (98.9 ??F) 08/31/2017 4:08 PM CD T Respiratory Rate - - Oxygen Saturation - - Inhaled Oxygen Concentration - - Weight 95.3 kg (210 lb) 08/31/2017 4:08 PM CDT Height 167.6 cm (5' 6 ) 08/31/2017 4:08 PM CDT Body Mass Index 33.89 08/31/2017 4:08 PM CDT documented in this encounter Functional Status [...] as of this encounter Progress Notes * Tricia Yue L, SPECIAL TAX AUDITOR-LASTING ROOM SUPERVISOR - 08/31/2017 4:46 PM CDT Subjective: Airam Munoz is a 37 y.o. female who presents to the clinic today for Chief Complaint Patient presents with ??? Employment Physical . Primary Care Physician is Yusef Aleman MD Past Medical History: Diagnosis Date ??? Endometriosis ??? Seasonal allergies Past Surgical History: Procedure Laterality Date ??? APPENDECTOMY, LAPAROSCOPIC 09/10/2016 LAPAROSCOPIC APPENDECTOMY ??? Bilateral Tubal Ligation (BTL) ??? CYSTOSCOPY 09/10/2016 CYSTOSCOPY WITH HYDRODISTENSION #### SCIP #### ??? DILATION AND CURETTAGE mAB ??? Dilation and Curettage x 2 ??? ENDOMETRIAL ABLATION ??? ENDOMETRIOSIS FULGURATION 09/10/2016 DIAGNOSTIC LAPAROSCOPY, EXCISION OF ENDOMETRIOSIS WITH CO2 LASER ??? HYSTERECTOMY TOTAL LAP W TUBE/OVARY 09/10/2016 TOTAL LAPAROSCOPIC HYSTERECTOMY RIGHT OOPHERECTOMY SALPINGECTOMY LEFT SALPINGECTOMY ??? HYSTEROSCOPY ??? LAPAROSCOPY, DIAGNOSTIC x 2 Family History Problem Relation Age of Onset ??? Adopted: Yes Social History Social History ??? Marital status: [...] file Social History Narrative No Known Allergies History: Menopause at 08/2016 surgical due to hysterectomy Last pap date: Unknown Abnormal pap? no : 3 Para: 2 Miscarriage: 1 Medications: Current Outpatient Prescriptions Medication Sig Dispense Refill ??? oxyCODONE-acetaminophen (PERCOCET) 7.5-325 MG tablet Take 1 Tab by mouth every 4 hours as needed 40 Tab 0 ??? traMADol (ULTRAM) 50 MG tablet Take 1 Tab by mouth every 6 hours 40 Tab 0 ??? docusate sodium (COLACE) 100 MG capsule Take 1 Cap by mouth 2 times daily 60 Cap 0 ??? cyclobenzaprine (FLEXERIL) 5 MG tablet Take 1 Tab by mouth 3 times daily as needed 30 Tab 0 ??? polyethylene glycol 3350 (GLYCOLAX) powder Take 17 g by mouth once daily 500 g 0 ??? cetirizine (ZYRTEC) 10 MG tablet Take 10 mg by mouth once daily ??? fluticasone propionate (FLONASE) 50 MCG/ACT nasal spray Verbena 1 Verbena into each nostril once daily ??? Vit-Fe Fumarate-FA ( VITAMIN) 28-0.8 MG tablet Take 1 Tab by mouth once daily. ??? famotidine (PEPCID) 20 MG tablet Take 20 mg by mouth at bedtime. No current facility-administered medications for this visit. Do you take any herbs or supplements that were not prescribed by a doctor? Yes. Vitamin D, Vitamin E, Probiotic, Fish Oil, Fiber Are you taking calcium supplements? yes Are you taking aspirin daily? no Review of Systems Do you have pain that bothers you in your daily life? no Constitutional: Negative for fatigue, weight loss, weight gain, fevers, chills, sweats, malaise, anorexia, rash. Eyes: Negative except for glasses or contacts Ears, nose, mouth, and throat: Negative for hearing loss bilaterally, tinnitus bilaterally, vertigo, epistaxis bilaterally, frequent URI's, persistent sore throat, bleeding gums, dental problems, hoarseness, nasal obstruction bilaterally, congestion, hay fever Respiratory: Negative for shortness of breath, dyspnea on exertion, acute cough, hemoptysis, asthma, wheezing Cardiovascular: Negative for palpitations, near-syncope, chest pain, lower extremity edema, dyspneaon exertion, orthopnea, Hypertension, myocardial infarction Gastrointestinal: Negative for poor appetite, dysphagia, nausea, vomiting, melena, hematochezia, blood on wiping, heartburn or reflux, dyspepsia, abdominal pain, epigastric pain, constipation, diarrhea, anal pain, anal discharge Genitourinary: Negative for incontinence, urgency, frequency Skin: Negative for pigmentation, rash, dark lesion(s), changed mole, new lesion, itching, lumps or bumps, hair changes, nail changes, pruritis Musculoskeletal:Negative for morning joint stiffness, joint swelling, joint redness, joint pain, back pain, neck pain, gout, muscle weakness, nocturnal cramping Neurological: Negative for headaches, dizziness, seizures, diplopia, gait problems, paralysis/weakness, numbness or tingling, restless legs, speech impairment, frequent falling, nocturnal leg cramps Endocrine: Negative for thyroid nodule, cold intolernance, heat intolerance, polyphagia, polydipsia, polyuria, hair loss, hair growth, skin dryness, hot flashes, diabetes, hypothyroidism, hyperthyroidism Objective: No exam data present BP 118/70 Pulse 69 Temp 98.9 ??F (37.2 ??C) (Oral) Ht 1.676 m (5' 6 ) Wt 95.3 kg (210 lb) BMI 33.89kg/m2 Exam General appearance: alert, cooperative, no distress, well appearing, appears stated age Head: normocephalic, without trauma Eyes: sclera and conjunctiva clear, EOMI and PERRLA, lids normal Ears: canals clear, tympanic membranes normal, hearing intact to voice Nose: nares open; no septal deviation is noted Throat: no mucous membrane abnormalities Neck: range of motion is intact, no masses, thyroid not enlarged, no adenopathy Nodes: no parotid, cervical, pre-auricular, post-auricular, supraclavicular or infraclavicular adenopathy Lungs: breath sounds normal and symmetric; no rales or wheezes Heart: regular rhythm, normal S1 and S2, without murmurs, gallops or rubs, no edema Abdomen: soft without mass, non-tender, with normal bowel sounds Extremities: no clubbing, cyanosis or edema Circulation: Radial pulses intact and symmetric, no carotid bruits Joints: ranges of motion normal without inflammation, effusion or deformity Skin: no rashes or other abnormalities are noted Neurologic: mental status normal; alert and oriented X 3; cranial nerves II - XII are grossly intact Assessment: Encounter Diagnoses Name Primary? Physical exam, pre-employment Yes ??? PPD positive Plan: 1. PPD toay PPD Placement note Airam Munoz, 37 y.o. female is here today for placement of PPD test Reason for PPD test: employment Pt taken PPD test before: yes Verified in allergy area and with patient that they are not allergic to the products PPD is made of(Phenol or Tween). Yes Is patient taking any oral or IV steroid medication now or have they taken it in the last month? no Has the patient ever received the BCG vaccine?: no Has the patient been in recent contact with anyone known or suspected of having active TB disease?:no Date of exposure (if applicable): n/a Name of person they were exposed to (if applicable): none Patient's Country of origin?: [place] O: Alert and oriented in NAD. P: PPD placed on 08/31/2017. Patient advised to return for reading within 48-72 hours. 2. Follow up as needed as in 498 to 72 hours. 3. Patient referred to PCP if none on file. See orders above. Orders Placed This Encounter ??? TUBERCULOSIS (PPD) INTRADERMAL ??? SKIN TEST PPD - POINT OF CARE No results found for this or any previous visit (from the past 24 hour(s)). documented in this encounter Plan of Treatment Not on file documented as of this encounter Procedures Procedure Name Priority Date/Time Associated Diagnosis Comments SKIN TEST PPD - POINT OF CARE Routine 08/31/2017 PPD positive documented in this encounter Results * SKIN TEST PPD - POINT OF CARE (08/31/2017) PPD neg Other MISCELLANEOUS SAMPLE S / Unknown 08/31/2017 [facility] - POINT OF CA RE ORDERABLES documented in this encounter Visit Diagnoses Diagnosis Physical exam, pre-employment- Primary Health examination of defined subpopulation PPD positive Nonspecific reaction to tuberculin skin test without active tuberculosis documented in this encounter Administered Medications Administered Medications Medication Order MAR Action Action Date Dose Rate Site PPD Intradermal Given 08/31/2017 0.1 mL Left Forearm documented in this encounter Care Teams National Secretary Relationship Specialty Start Date End Date Yusef Aleman MD [address] [place] [address] PCP - General Family Medicine 09/02/16 02/03/18 documented as of this encounter
--- OUTSIDE RECORDS SUMMARY | 2024-04-11 00:41 | XMS_ITS | Encounter Summary ---
Author Organization [facility] Address [address] [place] [address] Care Team Providers Care Nuclear Supervising Operator Name Role Phone Yusef Aleman MD Primary Care Provider [phone] Reason for Visit * Reason Onset Date Comments Pain 02/02/2018 Encounter Details Date Type Department Care Team (Late st Contact Info) Description 02/02/2018 Telephone [facility] [address] [place] [address] Mert Salmeron Jr., MD [address] [facility] [address] [place], [place] [id number] Pain Social History Tobacco Use Types Packs/Day Years [...] No 09/10/2016 documented as of this encounter Miscellaneous Notes * Telephone Encounter - Hollie Miles RN - 02/03/2018 9:32 AM CDT Pt went to [facility] yesterday. States that doctor didn't think it was a torsion and though he saw some blood flow to ovary. ER doctor told her he thought it was returning Endo and needed have a follow-up with Dr. Salmeron. Pt reports pain is improved today, she was sleeping when I called her. Pt has already been scheduled to see Dr. Salmeron 02/04 @ 11am. RN added pt on for ultrasound @ 9:30am. Pt appreciative. Denies further needs. * Telephone Encounter - Mert Salmeron Jr., MD - 02/03/2018 7:47 AM CDT Agree. Please schedule her for follow-up visit with me with transvaginal ultrasound. Thanks! * Telephone Encounter - Hollie Miles RN - 02/02/2018 4:07 PM CDT Pt last OV with Dr. Salmeron 09/26/16. States she didn't know who else to call to help her because she has been turned away by so many providers. Pt states she went to [facility] on 01/30 for left lower abdominal pain. They did a CT & ultrasound, diagnosed her with Left Ovarian Torsion, told her the ovary is retaining water, it is enlarged, and there is no blood flow. Sent her to [facility]. Pt states she was told [facility] physician that she needed a repeat ultrasound by her doctor and was sent home. Pt's previous OBGYN, Dr. Hood left practice, has a pending appt with a new OBGYN 03/17 who she called and they turned her away because she's never been seen. Only doctor she could think of to call was Dr. Salmeron since he has seen her before and might be able to see her or schedule her for the repeat ultrasound that the ER doctor wanted. Pt has been in pain, taking tramadol q6h, but pain is worsening and uncontrolled by medications today. Advised ER now. RN advised pt that ovarian torsion is considered medical emergency, should not wait for repeat ultrasound, which this can be done at any ER if it is necessary. Pt states she will go to [facility] ER for evaluation. RN advised I would update provider, if there are further recommendations I would call her back and update her. Agreeable, denies further needs. * Telephone Encounter - Jair Spangler - 02/02/2018 12:51 PM CDT Pt called stating she had a procedure done with Dr. Salmeron and is having pain in her left ovary. Please call back as soon as possible. Callback#[phone] documented in this encounter Plan of Treatment Not on file documented as of this encounter Visit Diagnoses Not on filedocumented in this encounter Care Teams Nuclear Supervising Operator Relationship Specialty Start Date End Date Yusef Aleman MD [address] [place] [address] PCP - General Family Medicine 09/02/16 02/03/18 documented as of this encounter
--- OUTSIDE RECORDS SUMMARY | 2024-04-11 00:41 | XMS_ITS | Encounter Summary ---
Author Organization [facility] Address [address] [facility] [place] [address] Care Team Providers Care Assistant Drafter Name Role Phone Melonie Ochoa MD Primary Care Provider [phone] Reason for Visit * Reason Onset Date Comments Refill Request 02/18/2018 Encounter Details Date Type Department Care Team (Late st Contact Info) Description 02/18/2018 Telephone [facility] [address] [place] [address] Robert Portillo MD [address] [place] [address] Refill Request Social History Tobacco Use Types Packs/Day Years [...] Telephone Encounter - Hollie Miles RN - 02/19/2018 3:46 PM CST Pt aware of Dr. Salmeron's note below. Will try [facility]. Denies further needs. HEAD FOREMAN * Telephone Encounter - Mert Salmeron Jr., MD - 02/19/2018 1:21 PM OVERHEAD FOREMAN Script sent electronically. Please let patient know this, and that the [facility] has a narcotic policy, withlimitations on what can be prescribed. Patient should be receiving narcotics only from one provider. [facility] #[id number] prescribed, given new regulations. If the patient needs higher dose or more, will require referral to Pain Management. Please discuss that narcotics should be weaned by 2 weeks before surgery. Thanks! HEAD FOREMAN * Telephone Encounter - Jenn Sheth RN - 02/19/2018 12:30 PM OVERHEAD FOREMAN Spoke to patient who states she needs some additional pain management suggestions or medications. Currently taking 50mg Tramadol q4 (supposed to be taking Q6) and she is still in pain all day. She declines giving a number to her pain but says my pain seems to take over my whole being and I am tense all day long it is exhausting and that is with taking tramadol all day. I am so tired from being in pain all day that I almost fall asleep at the wheel on the way home. Also taking tylenol q6. She received a refill from her PCP that should last her until her appointment on 03/[address] Portillo. 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 Advised I would forward to Dr. Salmeron to see his thoughts. HEAD FOREMAN * Telephone Encounter - Noemi Bella - 02/18/2018 3:07 PM CST Patient is requesting a refill on medication tramadol to be called into [facility]. HEAD FOREMAN documented in this encounter Plan of Treatment Not on file documented as of this encounter Visit Diagnoses Not on filedocumented in this encounter Care Teams Assistant Drafter Relationship Specialty Start Date End Date Melonie Ochoa MD PCP - General 02/04/18 documented as of this encounter
--- OUTSIDE RECORDS SUMMARY | 2024-04-11 00:41 | XMS_ITS | Encounter Summary ---
Author Organization [facility] Address [address] [place] [address] Care Team Providers Care Interventional Sale Consultant Name Role Phone Melonie Ochoa MD Primary Care Provider [phone] Reason for Referral * Radiology Services (Routine) - Closed Specialty Diagnoses / Procedures Referred By Yanni t Referred To Contact Diagnoses Acute pelvic pain, female Personal history of endometriosis Abnormal ultrasound of ovary Procedures US PELVIS W TRANSVAG W DOP NON OB Mert Salmeron Jr., MD [address] [facility] [address] [place] [address] [facility] [address] [address] Referral ID Status Reason Start Date Expiration Date Visits Re quested Visits Authorized [id number] Closed 02/04/2018 08/03/2018 1 1 Reason for Visit * Reason Comments Ultrasound Encounter Details Date Type Department Care Team (Latest Contact Info) Description 02/04/2018 9:30 AM CDT Procedure visit [facility] [address] [place] [phone] Acute pelvic pain, female ; Personal history of endometriosis; Abnormal ultrasound of ovary Social History Tobacco Use Types Packs/Day Years [...] No 09/10/2016 documented as of this encounter Procedure Notes * Yvrose Donis - 02/04/2018 10:30 AM CDTAssociated Order(s): US PELVIS W TRANSVAG W DOP NON OB Procedure(s): US PELVIS W TRANSVAG W DOP NON OB Pre-Procedure Diagnose(s): Acute pelvic pain, female; Personal history of endometriosis; Abnormal ultrasound of ovary Documentation in digisonics. documented in this encounter Plan of Treatment Not on file documented as of this encounter Procedures Procedure Name Priority Date/Time Associated Diagnosis Comments US PELVIS W TRANSVAG W DOP NON OB Routine 02/04/2018 10:30 AM CDT Acute pelvic pain, female Personal history of endometriosis Abnormal ultrasound of ovary documented in this encounter Results * US PELVIS W TRANSVAG W DOP NON OB (02/04/2018 10:30 AM CDT) Anatomical Region Laterality Modality Pelvis Ultrasound Narrative 02/04/2018 10:30 AM CDT Yvrose Doins ? 02/04/2018 10:30 AM Documentation in digisonics. Mert Salmeron Jr., MD US ORDERABLES documented in this encounter Visit Diagnoses Diagnosis Acute pelvic pain, female- Primary Unspecified symptom associated with female genital organs Personal history of endometriosis Personal history of other genital system and obstetric disorders Abnormal ultrasound of ovary Nonspecific (abnormal) findings on radiological and other examination of abdominal area, including retroperitoneum documented in this encounter Care Teams Interventional Sale Consultant Relationship Specialty Start Date End Date Melonie Ochoa MD PCP - General 02/04/18 documented as of this encounter
--- OUTSIDE RECORDS SUMMARY | 2024-04-11 00:47 | XMS_ITS | Encounter Summary ---
Author Organization [facility] Address [address] [place] [address] Phone Care Team Providers Care Cord Tire Builder Name Role Phone Lucero Hood MD Unavailable Unavail able Melonie Ochoa MD Primary Care Provider Abby Dinh APRN, CNP Unavailable [phone] Reason for Visit * Reason Comments Toe Pain Right big toe//pulle d a hangnail Encounter Details Date Type Department Care Team (Late st Contact Info) Description 08/15/2022 8:15 AM CDT Office Visit [facility] - [facility] Care - [place] [address] [address] Hunter Magdaleno, PAC [address] [place] [address] Paronychia of great toe of right foot (Primary Dx) Discharge Disposition: Discharged to home or Selfcare Social History Tobacco Use Types Packs/Day Years Used Date Smoking Tobacco: Never Smokeless Tobacco: Never Tobacco Cessation:Counseling Given: Not Answered Alcohol Use Standard Drinks/Week Comments Yes 1 (1 standard drink = 0.6 oz pure alcohol) 1 or 2 mixed drinks per week occasionally PHQ-2 Answer Date Recorded Total Score - Questions 1-9 9 05/15 Education Answer Date Recorded What is the highest level of school you have completed or the highest degree you have received? Master's degree (e.g., MA, MS, Marcell[employer], MEd, [employer], JOEY) 05/07/2020 Sexually Active Control Partners Comments Yes Male Comments No Sex and Gender Information Value Date Recorded Sex Assigned at Not on file Legal Sex Female 7:07 PM CDT Gender Identity Not on file Sexual Orientation Not on file COVID-19 Exposure Response Date Recorded In the last 10 days, have yo u been in contact with someone who was confirmed or suspected to have Coronavirus/COVID-19? No / Unsure 08/14/2022 11:39 AM CDT documented as of this encounter Last Filed Vital Signs Vital Sign Reading Time Taken Comments Blood Pressure 104/74 08/15/2022 7:57 AM CDT Pulse 71 08/15/2022 7:57 AM CDT Temperature 36.4 ??C (97.5 ??F) 08/15/2022 7:57 AM CD T Respiratory Rate 20 08/15/2022 7:57 AM CDT Oxygen Saturation 98% 08/15/2022 7:57 AM CDT Inhaled Oxygen Concentration - - Weight 101.1 kg (222 lb 12.8 oz) 08/15/2022 7:57 AM CDT Height 167.6 cm (5' 6 ) 08/15/2022 7:57 AM CDT Body Mass Index 35.96 08/15/2022 7:57 AM CDT documented in this encounter Patient Instructions * Patient Instructions* Hunter Magdaleno PAC - 08/15/2022 8:15 AM CDT Start Keflex and take as instructed. Epsom salt soaks. Triple antibiotic ointment over the wound as well. Follow up with PCP if symptoms persist. Take all medications as prescribed. Please continue with a balanced lifestyle of exercise and healthy eating. If any question, please call. Thanks for coming in today! documented in this encounter Progress Notes * Martha Garsia RMA - 08/15/2022 8:15 AM CDT Airam Mnuoz is a 42 y.o. female with current BMI: Body mass index is 35.19 kg/m??. Interventions discussed including: encourage daily physical activity and well- balanced diet. Airam Munoz, 42 y.o., female is here for No chief complaint on file. Medication Refills: Patient reports/denies need for medication refills. Orders Pended: no Requested Prescriptions No prescriptions requested or ordered in this encounter Home Medications Medication Sig Start Date End Date Taking? Authorizing Provider cetirizine (ZYRTEC) 10 MG Tablet Take 10 mg by mouth daily. Provider, MD Brian Cholecalciferol (VITAMIN D PO) Take 1,200 Units by mouth daily. Provider, MD Brian EST ESTROGENS-METHYLTEST PO Take by mouth. Emergency, Nurse, RN fluticasone (FLONASE) 50 MCG/ACT Suspension 2 Sprays by Nasal route daily. Use in each nostril as directed. 11/09/18 Melonie Ochoa MD Multiple Vitamin (MULTI-VITAMIN PO) Take by mouth daily. Provider, MD Brian oxymetazoline (AFRIN NASAL SPRAY) 0.05 % Solution 2 Sprays by Nasal route 2 times daily. 11/09/18 Melonie Ochoa MD There are no discontinued medications. I have reviewed the home medication list with the patient and have reconciled discrepancies. The list is accurate to the best of my knowledge. Smoking Status: Social History Tobacco Use ??? Smoking status: Never ??? Smokeless tobacco: Never Vaping Use ??? Vaping Use: Never used Substance Use Topics ??? Alcohol use: Yes Alcohol/week: 0.6 oz Types: 1 Shots of liquor per week Comment: 1 or 2 mixed drinks per week occasionally ??? Drug use: No Smoking Cessation Counseling Given: no Health Care Maintenance: There are no preventive care reminders to display for this patient. Orders Pended: no The following BPA's have been addressed with the patient today: N/A * Hunter Magdaleno PAC - 08/15/2022 8:15 AM CDT Images from the original note were not included. HPI: Patient is a 42 y.o. female who presents today for Toe Pain (Right big toe//pulled a hangnail) Patient complains of right great toe pain and swelling. Patient states that she had a hangnail that she pulled and pulled a piece of the skin with a last week. On Thursday the area started to become swollen and red and more painful. On Thursday, the area on the big toe started to drain a purulent substance. Pain and swelling is better since expressing some of the contents, but she continues with pain, swelling, and redness. Health Maintenance: There are no preventive care reminders to display for this patient. Medications: Current Outpatient Medications Medication Sig Dispense Refill ??? cephALEXin (KEFLEX) 500 MG Capsule Take 1 Capsule by mouth 2 times daily for 7 days. 14 Capsule0 ??? cetirizine (ZYRTEC) 10 MG Tablet Take 10 mg by mouth daily. ??? Cholecalciferol (VITAMIN D PO) Take 1,200 Units by mouth daily. ??? EST ESTROGENS-METHYLTEST PO Take by mouth. ??? fluticasone (FLONASE) 50 MCG/ACT Suspension 2 Sprays by Nasal route daily. Use in each nostril as directed. 3 Bottle 1 ??? Multiple Vitamin (MULTI-VITAMIN PO) Take by mouth daily. ??? oxymetazoline (AFRIN NASAL SPRAY) 0.05 % Solution 2 Sprays by Nasal route 2 times daily. 1 Bottle 0 No current facility-administered medications for this visit. ROS Fourteen point review of systems negative except as documented in HPI. Vitals: 08/15/22 0757 BP: 104/74 Pulse: 71 Resp: 20 Temp: 97.5 ??F (36.4 ??C) TempSrc: Temporal SpO2: 98% Weight: 222 lb 12.8 oz (101.1 kg) Height: 5' 6 (1.676 m) Body mass index is 35.96 kg/m??. Physical Exam Vitals and nursing note reviewed. Constitutional: General: She is not in acute distress. Appearance: Normal appearance. She is not ill-appearing. Musculoskeletal: Feet: Feet: Left foot: Skin integrity: Erythema present. Comments: Mild swelling and tenderness to the medial aspect of the right great toe. Neurological: Mental Status: She is alert. Past, family, surgical, and social history reviewed and updated in the chart. Assessment/Plan: Diagnoses and all orders for this visit: Paronychia of great toe of right foot - cephALEXin (KEFLEX) 500 MG Capsule; Take 1 Capsule by mouth 2 times daily for 7 days. Patient Instructions Start Keflex and take as instructed. Epsom salt soaks. Triple antibiotic ointment over the wound as well. Follow up with PCP if symptoms persist. Take all medications as prescribed. Please continue with a balanced lifestyle of exercise and healthy eating. If any question, please call. Thanks for coming in today! Patient verbalizes understanding and agrees with plan of care as noted above. New medication discussed with patient and family, including action of medication, potential side effects, interactions, and consequences for not taking it. Patient states understanding of new medication instructions. An After Visit Summary with personalized patient education was printed and given to the patient. Documentation for this visit on 08/15/22 was completed using a template. I have seen and examined the patient. Everything documented was personally performed at this visit with the necessary additions, deletions and changes made as appropriate. documented in this encounter Plan of Treatment Upcoming Encounters Date Type Department Care Team (Late st Contact Info) Description 04/14/2024 7:00 AM ADVERTISING EXECUTIVE Appointment [facility] M[facility] [address] [place] [address] Ravi Krishna MD [address] [address] 07/08/2024 9:30 AM CDT Office [facility] [address] [place] [address] Abby Dinh APRN, CAGE UNLOADER [address] [address] documented as of this encounter Goals Goal Patient Goal Type Associated Problems Recent Progress Patient-Stated? Author Grief Behavioral Health On track( 021 3:59 PM CDT) Mary Jane Morris, FOUNDER AND CEO Note: Brigid will cope with grief more effectively Goal Reviewed with: patient Readiness to change: Ready to change Department associated with goal: [facility] Steps to achieve goal: 1. will attend at least four counseling sessions either individual and/or group, engaging in each session by verbalizing and processing thoughts and feelings related to grief and loss. 2. will report reduced feelings of guilt and resentment. 3. will identify and implement at least two outlets for grief and or coping skills to aid in managing problematic responses to grief. documented as of this encounter Visit Diagnoses Diagnosis Paronychia of great toe of right foot- Primary Onychia and paronychia of toe documented in this encounter Additional Health Concerns Assessment Noted Time PHQ-9 Depression Total Score: 9 06/04/19 21 9:00 AM ADVERTISING EXECUTIVE documented as of this encounter Care Teams Cord Tire Builder Relationship Specialty Start Date End Date Melonie Ochoa MD PCP - General Family Medicine 11/12/18 02/16/23 Lucero Hood MD Obstetrics & Gynecology 03/20/16 Abby Dinh APRN, CAGE UNLOADER #[address] [address] Nurse Practitioner Advanced Practice Nurse 02/21/22 documented as of this encounter
--- OUTSIDE RECORDS SUMMARY | 2024-04-11 00:47 | XMS_ITS | Encounter Summary ---
Author Organization [facility] Care Team Providers Care Scientific Artist Name Role Phone Lucero Hood MD Unavailable Unavail able Melonie Ochoa MD Primary Care Provider [phone] Abby Dinh APRN, CD MIXER HELPER Unavailable [phone] Encounter Details Date Type Department Care Team (Latest Contact Info) Description 07/10/2022 Travel Social History Tobacco Use Types Packs/Day Years [...] Master's degree (e.g., MA, MS, Mar[employer], MEd, [employer], JOEY) 05/07/2020 Sexually Active Control Partners Comments [...] suspected to have Coronavirus/COVID-19? No / Unsure 07/10/2022 9:42 AM CDT documented as of this encounter Plan of Treatment Upcoming Encounters Date Type Department Care Team (Late st Contact Info) Description 04/14/2024 7:00 AM PRE CERTIFICATION SPECIALIST Appointment [facility] Mammography [address] [place] [address] Ravi Krishna MD [address] [facility] [address] [facility] [address] [place] [address] 07/08/2024 9:30 AM CDT Office Visit [facility] - Pulmonology & Sleep Medicine - [place] [address] [place] [address] Abby Dinh APRN, CD MIXER HELPER [address] [facility] [address] [place] [address] documented as of this encounter Goals Goal Patient Goal Type Associated Problems Recent Progress Patient-Stated? Author Grief Behavioral Health On track( 021 3:59 PM CDT) Mary Jane Morris LCSW Note: Brigid will cope with grief more effectively Goal Reviewed with: patient Readiness to change: Ready to change Department associated with goal: [facility] Steps to achieve goal: [...] Diagnoses Not on filedocumented in this encounter Additional Health Concerns Assessment Noted Time PHQ-9 Depression Total Score: 9 06/04/19 21 9:00 AM PRE CERTIFICATION SPECIALIST documented as of this encounter Care Teams Scientific Artist Relationship Specialty Start Date End Date Melonie Ochoa MD PCP - General Family Medicine 11/12/18 02/16/23 Lucero Hood MD Obstetrics & Gynecology 03/20/16 Abby Dinh APRN, CD MIXER HELPER [address] [address] Nurse Practitioner Advanced Practice Nurse 02/21/22 documented as of this encounter
--- OUTSIDE RECORDS SUMMARY | 2024-04-11 00:47 | XMS_ITS | Encounter Summary ---
Author Organization [facility] Address [address] [place] [address] Phone Care Team Providers Care Material Movers Name Role Phone Lucero Hood MD Unavailable Unavail able Melonie Ochoa MD Primary Care Provider Abby Dinh APRN, AMANDEEP Unavailable Reason for Visit * Reason Comments Sleep Apnea Encounter Details Date Type Department Care Team (Late st Contact Info) Description 10/02/2022 2:30 PM CDT Office Visit [facility] - Pulmonology & [facility] [address] [place] [address] Abby Dinh APRN, BRAND DEVELOPMENT MANAGER [address] [address] ROBERTO (obstructive sleep apnea) (Primary Dx); Obesity (BMI 35.0-39.9 without comorbidity) Discharge Disposition: Discharged to home or Selfcare [...] Master's degree (e.g., MA, MS, Marcellus, MEd, RAMP FLIGHT ATTENDANT, JOEY) 05/07/2020 Sexually Active Control Partners Comments [...] suspected to have Coronavirus/COVID-19? No / Unsure 10/02/2022 2:19 PM CDT documented as of this encounter Last Filed Vital Signs Vital Sign Reading Time Taken Comments Blood Pressure 116/70 10/02/2022 2:42 PM CDT Pulse 74 10/02/2022 2:42 PM CDT Temperature 36.4 ??C (97.5 ??F) 10/02/2022 2:42 PM CD T Respiratory Rate 14 10/02/2022 2:42 PM CDT Oxygen Saturation 98% 10/02/2022 2:42 PM CDT Inhaled Oxygen Concentration - - Weight 102.6 kg (226 lb 3.2 oz) 10/02/2022 2:42 PM CDT Height 167.6 cm (5' 6 ) 10/02/2022 2:42 PM CDT Body Mass Index 36.51 10/02/2022 2:42 PM CDT documented in this encounter Patient Instructions * Patient Instructions* Abby Dinh APRN, BRAND DEVELOPMENT MANAGER - 10/02/2022 2:30 PM CDT Images from the original note were not included. 5 Steps for Eating Healthier Changing the way you eat can improve your health. It can lower your cholesterol and blood pressure,and help you stay at a healthy weight. Your diet doesn???t have to be bland and boring to be healthy. Just watch your calories and follow these steps: Step 1. Eat fewer unhealthy fats Choose more fish and lean meats instead of fatty cuts of meat. Skip butter and lard, and use less margarine. Pass on foods that have palm, coconut, or hydrogenated oils. Eat fewer high-fat dairy foods like cheese, ice cream, and whole milk. Get a heart-healthy cookbook and try some low-fat recipes. Step 2. Go light on salt Keep the saltshaker off the table. Limit high-salt ingredients, such as soy sauce, bouillon, and garlic salt. Instead of adding salt when cooking, season your food with herbs and flavorings. Try lemon, garlic,and onion, or salt-free herb seasonings. Limit convenience foods, such as boxed or canned foods and restaurant food. Read food labels and choose lower-sodium options. Step 3. Limit sugar Pause before you add sugars to pancakes, cereal, coffee, or tea. This includes white and brown table sugar, syrup, honey, and molasses. Cut your usual amount by half. Use non-sugar sweeteners. Stevia, aspartame, and sucralose can satisfy a sweet tooth without addingcalories. Swap out sugar-filled soda and other drinks. Buy sugar-free or low-calorie beverages. Remember water is always the best choice. Read labels and choose foods with less added sugar. Keep in mind that dairy foods and foods with fruit will have some natural sugar. Cut the sugar in recipes by 1/3 to 1/2. Boost the flavor with extracts like almond, vanilla, or orange. Or add spices such as cinnamon or nutmeg. Step 4. Eat more fiber Eat fresh fruits and vegetables every day. Boost your diet with whole grains. Go for oats, whole-grain rice, and bran. Add beans and lentils to your meals. Drink more water to match your fiber increase to help prevent constipation. Step 5. Pay attention to serving sizes Remember that a serving size is a standard measurement. It will let you track the amount of fat, calories, and other nutrients in the food you eat. Read the Nutrition Facts label on packaged foods to learn their serving sizes. Use serving sizes to assess how much food you put on your plate. Pay attention to your portions. How many servings are you eating? Keep in mind that your needs may change if you???re more active or less active, or if you have other factors that change your calorie needs. Use your hand to help you measure serving sizes. For example: 1 teaspoon: This is about the size of the first joint of your thumb. 1 tablespoon: This is about the size of the first 2 joints of your thumb. 1 ounce: This is about what you can fit in your cupped hand. 2 to 3 ounces: This is about size of the palm of your hand. ?? cup: This is also about what you can fit in your cupped hand. 1 cup: This is about the size of your fist. [employer] reviewed this educational content on 10/12/2019 ?? 3731-5169 [employer]. All rights reserved. This information is not intended as a substitute for professional medical care. Always follow your healthcare professional's instructions. Daily Cleaning Wipe down your mask using a damp towel with mild detergent and warm water. Gently rinse with a clean towel and let the mask air-dry. You can also use pre-moistened towels designed specifically for cleaning CPAP masks. If your unit has a humidifier, empty any leftover water. Refill the humidifier with clean, distilled water right before bedtime. If you've been sick, wash your mask, tubing, humidifier and filter daily until your cold, flu or virus symptoms are gone. Weekly Cleaning Clean the CPAP tubing, nasal mask and headgear in a bathroom sink filled with warm water and a few drops of ammonia-free, mild dish detergent. Hang the tubing over the shower isaac, on a towel rack or in the laundry room to ensure all the water drips out. The mask and headgear can be air-dried on a towel or hung on a hook or hanger off. Wipe down your CPAP machine with a damp cloth (not too damp or wet, as water could get into the machine). Clean the long-term filter by removing it and rinsing it in warm tap water. Squeeze it under the water to make sure there is no dust. Then blot down the filter with a towel. Don't wash your machine's white filter --those are disposable and should be replaced once a month, or sooner if it's dirty. Every week empty any remaining water and then wash the water chamber in the sink with warm soapy water. Rinse well and drain out as much of the water as possible. Let the chamber air-dry before placing it back into the CPAP unit. Every other week you should disinfect the humidifier by soaking it in a solution of one part vinegar to five parts water for 30 minutes, thoroughly rinsing and then placing in your embosser operator's top rack for washing. And keep it clean by using only distilled water to prevent mineral deposits that can build up and cause damage to your machine. documented in this encounter Progress Notes * Abby Dinh APRN, CNP - 10/02/2022 2:30 PM CDT Chief Complaint: Chief Complaint Patient presents with ??? Sleep Apnea Subjective: Ms. Airam Munoz is a 42 y.o. female here today for above. Patient is using CPAP greater than 4 hours 13% of the time and is benefiting from use. AHI is 0.3. Last sleep study was on 09/16/21 showing RDI at 27.1 with SpO2 down to 82% . DME is DATY. APAP is set at 5-15cm with FFM. Usage is 7/30 days. Median pressure 6.7cm with max pressure 9.1 cm. No significant mask leak seen on download. Patient reports usage is low as she spends a lot of time trying to get her mask to fit correctly and to seal good so she ends up not using it as she feels loosing an hour of sleep is not worth it. She is a stomach sleeper and druels a lot and the current mask is not holding a seal per patient report which has been waking her up or not wearing at all. ROS: Review of Systems Constitutional: Negative. HENT: Negative. Eyes: Negative. Respiratory: Negative. Cardiovascular: Negative. Gastrointestinal: Negative. Endocrine: Negative. Genitourinary: Negative. Musculoskeletal: Negative. Skin: Negative. Allergic/Immunologic: Negative. Neurological: Negative. Hematological: Negative. Psychiatric/Behavioral: Positive for sleep disturbance (non compliant with APAP). VITAL SIGNS: BP Readings from Last 3 Encounters: 10/02/22 116/70 08/15/22 104/74 02/21/22 130/60 Wt Readings from Last 3 Encounters: 10/02/22 226 lb 3.2 oz (102.6 kg) 08/15/22 222 lb 12.8 oz (101.1 kg) 07/10/22 218 lb (98.9 kg) Vitals: 10/02/22 1442 BP: 116/70 Pulse: 74 Resp: 14 Temp: 97.5 ??F (36.4 ??C) SpO2: 98% Weight: 226 lb 3.2 oz (102.6 kg) Height: 5' 6 (1.676 m) Body mass index is 36.51 kg/m??. PHYSICAL EXAM: Physical Exam Vitals reviewed. Constitutional: Appearance: She is well-developed. She is obese. Eyes: Conjunctiva/sclera: Conjunctivae normal. Pupils: Pupils are equal, round, and reactive to light. Cardiovascular: Rate and Rhythm: Normal rate and regular rhythm. Heart sounds: Normal heart sounds, S1 normal and S2 normal. Pulmonary: Effort: Pulmonary effort is normal. Breath sounds: Normal breath sounds. Abdominal: General: Bowel sounds are normal. Palpations: Abdomen is soft. Musculoskeletal: General: Normal range of motion. Cervical back: Normal range of motion and neck supple. Skin: General: Skin is warm. Capillary Refill: Capillary refill takes less than 2 seconds. Neurological: Mental Status: She is alert and oriented to person, place, and time. Psychiatric: Behavior: Behavior normal. Thought Content: Thought content normal. Judgment: Judgment normal. Labs/Studies Reviewed: Sleep study, APAP data download Assessment/Plan: Diagnoses and all orders for this visit: ROBERTO (obstructive sleep apnea) - CPAP SUPPLIES Obesity (BMI 35.0-39.9 without comorbidity) Adjusted APAP to CPAP 8cm and ordered nasal pillows to use with machine. Discussed option of dental vs inspire however me and patient felt it would be best to try and adjust to using CPAP first. Educated on the importance of healthy diet and exercise to control BMI. Daily Cleaning Wipe down your mask using a damp towel with mild detergent and warm water. Gently rinse with a clean towel and let the mask air-dry. You can also use pre-moistened towels designed specifically for cleaning CPAP masks. If your unit has a humidifier, empty any leftover water. Refill the humidifier with clean, distilled water right before bedtime. If you've been sick, wash your mask, tubing, humidifier and filter daily until your cold, flu or virus symptoms are gone. Weekly Cleaning Clean the CPAP tubing, nasal mask and headgear in a bathroom sink filled with warm water and a few drops of ammonia-free, mild dish detergent. Hang the tubing over the shower isaac, on a towel rack or in the laundry room to ensure all the water drips out. The mask and headgear can be air-dried on a towel or hung on a hook or hanger off. Wipe down your CPAP machine with a damp cloth (not too damp or wet, as water could get into the machine). Clean the long-term filter by removing it and rinsing it in warm tap water. Squeeze it under the water to make sure there is no dust. Then blot down the filter with a towel. Don't wash your machine's white filter --those are disposable and should be replaced once a month, or sooner if it's dirty. Every week empty any remaining water and then wash the water chamber in the sink with warm soapy water. Rinse well and drain out as much of the water as possible. Let the chamber air-dry before placing it back into the CPAP unit. Every other week you should disinfect the humidifier by soaking it in a solution of one part vinegar to five parts water for 30 minutes, thoroughly rinsing and then placing in your embosser operator's top rack for washing. And keep it clean by using only distilled water to prevent mineral deposits that can build up and cause damage to your machine. FOLLOWUP: Follow-up Information Return in about 6 months (around 04/03/2023). Abby Dinh APRN, CNP Past medical, surgical, social and family history has been reviewed and updated as necessary. Medications and allergies has been reviewed and updated. I discussed all new medications and potential side effects or risks associated with them. Patient is to contact our office with any concerns. Patient instructions and educational materials were given to the patient. Patient (or patient care support representative) demonstrates verbal understanding of instructions given. Patient should follow up with their PCP for general health maintenance needs. Patient should contact our office if their problems persist or call 911/go the to ER if issues become more persistent. If any referrals have been made, patient should contact our office with in 3-5 days if they have not heard anything from our referral team or the referring physician. documented in this encounter Plan of Treatment Upcoming Encounters Date Type Department Care Team (Late st Contact Info) Description 04/14/2024 7:00 AM RESEARCH TECHNOLOGIST Appointment [facility] Mammography [address] [facility] [place] [address] Ravi Krishna MD [address] [place] [address] 07/08/2024 9:30 AM CDT Office Visit [facility] - Pulmonology & Sleep Medicine - Left Hand [address] [place] [address] Abby Dinh, CHARTER PILOT, BRAND DEVELOPMENT MANAGER #2 [facility] [address] [place] [address] documented as of this encounter Goals Goal Patient Goal Type Associated Problems Recent Progress Patient-Stated? Author Grief Behavioral Health On track( 021 3:59 PM CDT) Mary Jane Morris, KRISTA Note: Brigid will cope with grief more effectively Goal Reviewed with: patient Readiness to change: Ready to change Department associated with goal: [facility] Steps to achieve [...] as of this encounter Visit Diagnoses Diagnosis ROBERTO (obstructive sleep apnea)- Primary Obstructive sleep apnea (adult) (pediatric) Obesity (BMI 35.0-39.9 without comorbidity) Obesity, unspecified documented in this encounter Additional Health Concerns Assessment Noted Time PHQ-9 Depression Total Score: 9 06/04/19 21 9:00 AM RESEARCH TECHNOLOGIST documented as of this encounter Care Teams Material Movers Relationship Specialty Start Date End Date Melonie Ochoa MD PCP - General Family Medicine 11/12/18 02/16/23 Lucero Hood MD Obstetrics & Gynecology 03/20/16 Abby Dinh, CHARTER PILOT, BRAND DEVELOPMENT MANAGER [address] [address] Nurse Practitioner Advanced Practice Nurse 02/21/22 documented as of this encounter
--- OUTSIDE RECORDS SUMMARY | 2024-04-11 00:47 | XMS_ITS | Encounter Summary ---
Author Organization [facility] [id number] Care Team Providers Care Assurance Senior Manager Name Role Phone Lucero Hood MD Unavailable Unavail able Edna Yoder MD Primary Care Provider [phone] Abby Dinh APRN, PIPE CUTTER Unavailable [phone] Encounter Details Date Type Department Care Team (Latest Contact Info) Description 09/18/2023 Travel Social History Tobacco Use Types Packs/Day [...] Master's degree (e.g., MA, MS, Marcellus, MEd, MEDICAL BILLING AND CODING INSTRUCTOR, JOEY) 05/07/2020 Sexually Active Control Partners Comments Yes Male Comments No Sex and Gender Information Value Date Recorded Sex Assigned at Not on file Legal Sex Female 7:07 PM CDT Gender Identity Not on file Sexual Orientation Not on file documented as of this encounter Plan of Treatment Upcoming Encounters Date Type Department Care Team (Late st Contact Info) Description 04/14/2024 7:00 AM INDEPENDENT FREIGHT AGENT Appointment [facility] Mammography [address] [facility] [place] [address] Ravi Krishna MD [address] [facility] [address] [place] [address] 07/08/2024 9:30 AM CDT Office Visit [facility] - Pulmonology & Sleep Medicine - [place] [address] [place] [address] Abby Dinh APRN, PIPE CUTTER [address] [address] documented as of this encounter Goals Goal Patient Goal Type Associated Problems Recent Progress Patient-Stated? Author Grief Behavioral Health On track( 021 3:59 PM CDT) Mary Jane Morris, KRISTA Note: Brigid will cope with grief more effectively Goal Reviewed with: patient Readiness to change: Ready to change Department associated with goal: [facility] Steps [...] Total Score: 9 06/04/19 21 9:00 AM INDEPENDENT FREIGHT AGENT documented as of this encounter Care Teams Assurance Senior Manager Relationship Specialty Start Date End Date Edna Yoder MD [facility] [place] [address] PCP - General Internal Medicine 02/17/23 Lucero Hood MD Obstetrics & Gynecology 03/20/16 Abby Dinh APRN, AMANDEEP #2 [facility] [address] [place] [address] Nurse Practitioner Advanced Practice Nurse 02/21/22 documented as of this encounter
--- OUTSIDE RECORDS SUMMARY | 2024-04-11 00:47 | XMS_ITS | Encounter Summary ---
Author Organization [facility] Address [address] [place] [address] Phone Care Team Providers Care [employer] Principal Name Role Phone Lucero Hood MD Unavailable Unavail able Edna Yoder MD Primary Care Provider [phone] Abby Dinh APRN, CNP Unavailable [phone] Reason for Visit * Radiology Services (Routine) - Closed Specialty Diagnoses / Procedures Referred By Contac t Referred To Contact Radiology Diagnoses Encounter for screening mammogram for malignant neoplasm of breast Procedures KAYLEEN SCREENING BILATERAL DIGITAL W CAD W SANDY KAYLEEN SCREENING BILATERAL DIGITAL W CAD Edna Yoder MD [address] [facility] [place] [address] Phone: tel: fax: Referral ID Status Reason Start Date Expiration Date Visits Re quested Visits Authorized [id number] Closed 02/17/2023 1 1 Encounter Details Date Type Department Care Team (Late st Contact Info) Description 02/26/2023 8:28 AM CHIEF RESOURCE OFFICER - 02/26/2023 11:59 PM [facility] Hospital Encounter [facility] Mammography 1 [place] [id number] Edna Yoder MD [address] [place] [id number] Discharge Disposition: Discharged to home or Selfcare [...] Master's degree (e.g., MA, MS, Marcellus, MEd, PLACEMENT ASSISTANT, JOEY) 05/07/2020 Sexually Active Control Partners Comments Yes Male Comments No Sex and Gender Information Value Date Recorded Sex Assigned at Not on file Legal Sex Female 7:07 PM CDT Gender Identity Not on file Sexual Orientation Not on file documented as of this encounter Medications at Time of Discharge cetirizine (ZYRTEC) 10 MG Tablet Take 10 mg by mouth daily. Cholecalciferol (VITAMIN D PO) Take 1,200 Units by mouth daily. EST ESTROGENS-METHYLT EST PO Take by mouth. fluticasone (FLONASE) 50 MCG/ACT SuspensionIndicat ions:Seasonal and perennial allergic rhinitis 2 Sprays by Nasal route daily. Use in each nostril as directed. 3 Bottle 1 11/09/2018 Multiple Vitamin (MULTI-VITAMIN PO) Take by mouth daily. oxymetazoline (AFRIN NASAL SPRAY) 0.05 % SolutionIndicatio ns:Seasonal and perennial allergic rhinitis 2 Sprays by Nasal route 2 times daily. 1 Bottle 11/09/2018 documented as of this encounter Plan of Treatment Upcoming Encounters Date Type Department Care Team (Late st Contact Info) Description 04/14/2024 7:00 AM CHIEF RESOURCE OFFICER [facility]ment [facility] 1 [place] [address] Ravi Krishna MD [address] [facility] [address] [place] [address] 07/08/2024 9:30 AM CDT [facility] - [place] [address] [place] [address] Abby Dinh APRN, PACKAGE DELIVERY ROOM SERVICE RUNNER #[address] [address] documented as of this encounter Goals Goal Patient Goal Type Associated Problems Recent Progress Patient-Stated? Author Grief Behavioral Health On track( 021 3:59 PM CDT) Mary Jane Morris LCSW Note: Brigid will cope with grief more effectively Goal Reviewed with: patient Readiness to change: Ready to change Department associated with goal: [facility] Steps to [...] to grief. documented as of this encounter Procedures Procedure Name Priority Date/Time Associated Diagnosis Comments KAYLEEN SCREENING BILATERAL DIGITAL W CAD W SANDY Routine 02/26/2023 9:00 AM CHIEF RESOURCE OFFICER Encounter for screening mammogram for malignant neoplasm of breast documented in this encounter Results * KAYLEEN SCREENING BILATERAL DIGITAL W CAD W SANDY (02/26/2023 9:00 AM CHIEF RESOURCE OFFICER) Anatomical Region Laterality Modality breast Bilateral Mammography 02/26/2023 9:01 AM CHIEF RESOURCE OFFICER Narrative 02/26/2023 12:10 PM CHIEF RESOURCE OFFICER - KAYLEEN SCREENING BILATERAL DIGITAL W CAD W SANDY BILATERAL DIGITAL SCREENING MAMMOGRAM 3D/2D WITH CAD WITH MEDIOLATERAL OBLIQUE CRANIOCAUDAL: 02/26/2023 The study was acquired using digital technology and interpreted from soft copy. Current study was also evaluated with ICAD version 7.2. 2D digital mammographic views, as well as 3D digital tomosynthesis were performed in the CC and MLO projections. ?? CLINICAL: Routine screening. Patient has no complaints. No personal history of cancer. Family history of breast cancer unknown. ?? COMPARISONS: Comparison is made to exams dated: ??12/19/2021 [facility], 10/12/2020, and 10/07/2019 [facility]. ?? BREAST TISSUE:There are scattered fibroglandular densities in both breasts. ?? FINDINGS: No significant masses, calcifications, or other findings are seen in either breast. ?? There has been no significant interval change. IMPRESSION: BI-RAD 1 NEGATIVE There is no mammographic evidence of malignancy. A 1 year screening mammogram is recommended. ?? A letter will be sent to the patient with these results. The patient will be entered into a reminder system with a target due date of 1 year for her next screening exam. Electronically signed by: Alexandra De La Torre M.D. ? ll/penrad:02/26/2023 11:31:19 ?? Body Recall Instructor(s): Renee ??RT Maurice(Reanna)(M), [facility] letter sent: Normal Exam ?? Reading location: [facility] BI-RADS: 1 Negative Procedure Note Alexandra De La Torre MD - 02/26/2023 - KAYLEEN SCREENING BILATERAL DIGITAL W CAD W SANDY BILATERAL DIGITAL SCREENING MAMMOGRAM 3D/2D WITH CAD WITH MEDIOLATERAL OBLIQUE CRANIOCAUDAL: 02/26/2023 The study was acquired using digital technology and interpreted from soft copy. Current study was also evaluated with ICAD version 7.2. 2D digital mammographic views, as well as 3D digital tomosynthesis were performed in the CC and MLO projections. CLINICAL: Routine screening. Patient has no complaints. No personal history of cancer. Family history of breast cancer unknown. COMPARISONS: Comparison is made to exams dated: 12/19/2021 [facility], 10/12/2020, and 10/07/2019 [facility]. BREAST TISSUE:There are scattered fibroglandular densities in both breasts. FINDINGS: No significant masses, calcifications, or other findings are seen in either breast. There has been no significant interval change. IMPRESSION: BI-RAD 1 NEGATIVE There is no mammographic evidence of malignancy. A 1 year screening mammogram is recommended. A letter will be sent to the patient with these results. The patient will be entered into a reminder system with a target due date of 1 year for her next screening exam. Electronically signed by: Alexandra sommer/era:02/26/2023 11:31:19 Body Recall Instructor(s): RT Shakila(R)(M), [facility] letter sent: Normal Exam Reading location: [facility] BI-RADS: 1 Negative us Edna Yoder MD IMG MAMMO ORDERABLES Final Res ult documented in this encounter Visit Diagnoses Diagnosis Encounter for screening mammogram for malignant neoplasm of breast Other screening mammogram documented in this encounter Additional Health Concerns Assessment Noted Time PHQ-9 Depression Total Score: 9 06/04/19 21 9:00 AM CHIEF RESOURCE OFFICER documented as of this encounter Care Teams High School Principal Relationship Specialty Start Date End Date Edna Yoder MD [address] [place] [address] PCP - General Internal Medicine 02/17/23 Lucero Hood MD Obstetrics & Gynecology 03/20/16 Abby Dinh, HAND HARDENER, PACKAGE DELIVERY ROOM SERVICE RUNNER #[address] [address] Nurse Practitioner Advanced Practice Nurse 02/21/22 documented as of this encounter
--- OUTSIDE RECORDS SUMMARY | 2024-04-11 00:47 | XMS_ITS | Encounter Summary ---
Author Organization [facility] Care Team Providers Care Continuous Drier Operator Name Role Phone Lucero Hood MD Unavailable Unavail able Edna Yoder MD Primary Care Provider [phone] Abby Dinh APRN, MANAGER DRIVE Unavailable Encounter Details Date Type Department Care Team (Latest Contact Info) Description 12/16/2023 Travel Social History Tobacco Use Types Packs/Day [...] Master's degree (e.g., MA, MS, Marcellus, MEd, NATIONAL INVESTIGATIVE PRODUCER, JOEY) 05/07/2020 Sexually Active Control Partners Comments Yes Male Comments No Sex and Gender Information Value Date Recorded Sex Assigned at Not on file Legal Sex Female 7:07 PM CDT Gender Identity Not on file Sexual Orientation Not on file documented as of this encounter Plan of Treatment Upcoming Encounters Date Type Department Care Team (Late st Contact Info) Description 04/14/2024 7:00 AM TEACHER ADVISOR Appointment [facility] Mammography 1 [facility] [place] [address] Ravi Krishna MD [address] [facility] [address] [place] [address] 07/08/2024 9:30 AM CDT Office Visit [facility] - Pulmonology & Sleep Medicine - [place] [address] [place] [address] Abby Dinh APRN, MANAGER DRIVE #[address] [address] documented as of this encounter Goals Goal Patient Goal Type Associated Problems Recent Progress Patient-Stated? Author Grief Behavioral Health On track( 021 3:59 PM CDT) Mary Jane Morris, KRISTA Note: Brigid will cope with grief more effectively Goal Reviewed with: patient Readiness to change: Ready to change Department associated with goal: [facility] Steps to achieve [...] Total Score: 9 06/04/19 21 9:00 AM TEACHER ADVISOR documented as of this encounter Care Teams Continuous Drier Operator Relationship Specialty Start Date End Date Edna Yoder MD [place] [facility] [place] [address] PCP - General Internal Medicine 02/17/23 Lucero Hood MD Obstetrics & Gynecology 03/20/16 Abby Dinh APRN, AMANDEEP [address] [facility] [address] [place] [address] Nurse Practitioner Advanced Practice Nurse 02/21/22 documented as of this encounter
--- OUTSIDE RECORDS SUMMARY | 2024-04-11 00:47 | XMS_ITS | Encounter Summary ---
Author Organization [facility] Address [address] [place] [address] Phone Care Team Providers Care Informix Developer Name Role Phone Lucero Hood MD Unavailable Unavail able Edna Yoder MD Primary Care Provider Abby Dinh APRN, CNP Unavailable Encounter Details Date Type Department Care Team (Late st Contact Info) Description 02/17/2023 Transcribe Orders [facility] Central Scheduling 1 [place] [address] Edna Yoder MD [place] [address] Encounter for screening mammogram for malignant neoplasm of breast (Primary Dx) Social History Tobacco Use Types [...] Master's degree (e.g., MA, MS, Marcellus, MEd, COMPUTER APPLICATIONS ENGINEER, JOEY) 05/07/2020 Sexually Active Control Partners Comments Yes Male Comments No Sex and Gender Information Value Date Recorded Sex Assigned at Not on file Legal Sex Female 7:07 PM CDT Gender Identity Not on file Sexual Orientation Not on file documented as of this encounter Plan of Treatment Upcoming Encounters Date Type Department Care Team (Late st Contact Info) Description 04/14/2024 7:00 AM RECEIVING BARN CUSTODIAN Appointment [facility] Mammography 1 [place] [address] Ravi Krishna MD [address] [facility] [address] [place] [address] 07/08/2024 9:30 AM CDT Office Visit [facility] - Pulmonology & Sleep Medicine - [place] [address]2 [place] [address] Abby Dinh APRN, THAW SHED HEATER TENDER #2 [facility] [address] [place] [address] documented as of this encounter Goals Goal Patient Goal Type Associated Problems Recent Progress Patient-Stated? Author Grief Behavioral Health On track( 021 3:59 PM CDT) No Mary Jane Norman, KRISTA Note: Brigid will cope with grief more effectively Goal Reviewed with: patient Readiness to change: Ready to change Department associated with goal: [facility] BE[facility] Steps to achieve goal: [...] as of this encounter Visit Diagnoses Diagnosis Encounter for screening mammogram for malignant neoplasm of breast- Primary Other screening mammogram documented in this encounter Additional Health Concerns Assessment Noted Time PHQ-9 Depression Total Score: 9 06/04/19 21 9:00 AM RECEIVING BARN CUSTODIAN documented as of this encounter Care Teams Informix Developer Relationship Specialty Start Date End Date Edna Yoder MD [address] [employer] [employer] [place] [address] PCP - General Internal Medicine 02/17/23 Lucero Hood MD Obstetrics & Gynecology 03/20/16 Abby Dinh APRN, THAW SHED HEATER TENDER #[address] [address] Nurse Practitioner Advanced Practice Nurse 02/21/22 documented as of this encounter
--- OUTSIDE RECORDS SUMMARY | 2024-04-11 00:47 | XMS_ITS | Encounter Summary ---
Author Organization [facility] Address [address] [place] [address] Phone Care Team Providers Care Police Records Clerk Name Role Phone Lucero oHod MD Unavailable Unavail able Edna Yoder MD Primary Care Provider Abby Dinh APRN, VISOR INSTALLER Unavailable Reason for Visit * Reason Comments Sleep Apnea Encounter Details Date Type Department Care Team (Late st Contact Info) Description 07/10/2023 9:30 AM CDT Office Visit [facility] - Pulmonology & Sleep Medicine [facility] [address]2 [place] [address] Abby Dinh APRN, VISOR INSTALLER #[address] [address] ROBERTO (obstructive sleep apnea) (Primary Dx) Discharge Disposition: Discharged to home [...] Master's degree (e.g., MA, MS, Marcellus, MEd, PROVIDER RELATIONS MANAGER, JOEY) 05/07/2020 Sexually Active Control Partners Comments Yes Male Comments No Sex and Gender Information Value Date Recorded Sex Assigned at Not on file Legal Sex Female 7:07 PM CDT Gender Identity Not on file Sexual Orientation Not on file documented as of this encounter Last Filed Vital Signs Vital Sign Reading Time Taken Comments Blood Pressure 110/70 07/10/2023 9:38 AM CDT Pulse 76 07/10/2023 9:38 AM CDT Temperature 36.2 ??C (97.1 ??F) 07/10/2023 9:38 AM CD T Respiratory Rate 16 07/10/2023 9:38 AM CDT Oxygen Saturation 99% 07/10/2023 9:38 AM CDT Inhaled Oxygen Concentration - - Weight 100.3 kg (221 lb 1.6 oz) 07/10/2023 9:38 AM CDT Height 167.6 cm (5' 6 ) 07/10/2023 9:38 AM CDT Body Mass Index 35.69 07/10/2023 9:38 AM CDT documented in this encounter Patient Instructions * Patient Instructions* Abby Dinh APRN, AMANDEEP - 07/10/2023 9:30 AM CDT Daily Cleaning Wipe down your mask using [...] towel or hung on a hook or tobacco hanger. Wipe down your CPAP machine with a [...] thoroughly rinsing and then placing in your finance vice president's top rack for washing. And keep it clean by using only distilled water to prevent mineral deposits that can build up and cause damage to your machine. documented in this encounter Progress Notes * Abby Dinh APRN, CNP - 07/10/2023 9:30 AM CDT Chief Complaint: Chief Complaint Patient presents with Sleep Apnea Subjective: Ms. Airam Munoz is a 43 y.o. female here today for above. Patient was last seen in 09/2022 for CPAP compliance. Patient is using CPAP greater than 4 hours 87% of the time and is benefiting from use. AHI is 0.3. Last sleep study was on 09/16/21 showing RDI at 27.1 with SpO2 down to 82% . DME is [facility] [employer]. Usage is 81/90 days. She has an Airsense 10 machine set at 8cm with nasal pillows. Has previously tried FFM but could not get a good seal. No significant mask leak seen on download. She is sleeping on her stomach but has felt better with wearing mask since switching to nasal pillows. Is helping care for her father at the moment but overall patient states she has been doing well. ROS: Review of Systems Constitutional: Negative. HENT: Negative. Eyes: Negative. Respiratory: Negative. Cardiovascular: Negative. Gastrointestinal: Negative. Endocrine: Negative. Genitourinary: Negative. Musculoskeletal: Negative. Skin: Negative. Allergic/Immunologic: Negative. Neurological: Negative. Hematological: Negative. Psychiatric/Behavioral: Negative. VITAL SIGNS: BP Readings from Last 3 Encounters: 07/10/23 110/70 10/02/22 116/70 08/15/22 104/74 Wt Readings from Last 3 Encounters: 07/10/23 221 lb 1.6 oz (100.3 kg) 10/02/22 226 lb 3.2 oz (102.6 kg) 08/15/22 222 lb 12.8 oz (101.1 kg) Vitals: 07/10/23 0938 BP: 110/70 Pulse: 76 Resp: 16 Temp: 97.1 ??F (36.2 ??C) SpO2: 99% Weight: 221 lb 1.6 oz (100.3 kg) Height: 5' 6 (1.676 m) Body mass index is 35.69 kg/m??. PHYSICAL EXAM: Physical Exam Vitals reviewed. [...] content normal. Judgment: Judgment normal. Labs/Studies Reviewed: CPAP download, sleep study Assessment/Plan: Diagnoses and all orders for this visit: ROBERTO (obstructive sleep apnea) Other orders - Naltrexone-buPROPion HCl ER (Contrave) 8-90 MG TABLET SR 12 HR; Take by mouth. OTHER ORDERS NOT PLACED AT THIS VISIT Encouraged continued nightly use of CPAP at current settings. Daily Cleaning Wipe down your mask using [...] towel or hung on a hook or tobacco hanger. Wipe down your CPAP machine with a [...] thoroughly rinsing and then placing in your finance vice president's top rack for washing. And keep it clean by using only distilled water to prevent mineral deposits that can build up and cause damage to your machine. FOLLOWUP: Follow-up Information Return in about 1 year (around 07/09/2024). Abby Dinh APRN, VISOR INSTALLER Past medical, surgical, social and family history has been reviewed and updated as necessary. Medications and allergies has been reviewed and updated. I discussed all new medications and potential side effects or risks associated with them. Patient is to contact our office with any concerns. Patient instructions and educational materials were given to the patient. Patient (or patient dental detail representative) demonstrates verbal understanding of instructions given. [...] st Contact Info) Description 04/14/2024 7:00 AM PBX TECHNICIAN Appointment [facility] Mammography 1 [place] [address] Ravi Krishna MD [address] [facility] [address] [facility] [address] [place] [address] 07/08/2024 9:30 AM CDT Office Visit [facility] - Pulmonology & Sleep Medicine [facility] #2 [place] [address] Abby Dinh APRN, AMANDEEP [address]2 [facility] [address] [place] [address] documented as of this encounter Goals Goal Patient Goal Type Associated Problems Recent Progress Patient-Stated? Author Grief Behavioral Health On track( 021 3:59 PM CDT) Mary Jane Morris, WATERPROOFING SUPERVISOR Note: Brigid will cope with grief more effectively Goal Reviewed with: patient Readiness to change: Ready to change Department associated with goal: [facility] BEHAVIOR[facility] HE[facility] SERVICES Steps to [...] apnea)- Primary Obstructive sleep apnea (adult) (pediatric) documented in this encounter Additional Health Concerns Assessment Noted Time PHQ-9 Depression Total Score: 9 06/04/19 21 9:00 AM PBX TECHNICIAN documented as of this encounter Care Teams Police Records Clerk Relationship Specialty Start Date End Date Edna Yoder MD [address] [place] [address] PCP - General Internal Medicine 02/17/23 Lucero Hood MD Obstetrics & Gynecology 03/20/16 Abby Dinh, STORE RECEIVING SPECIALIST, VISOR INSTALLER #[address] [address] Nurse Practitioner Advanced Practice Nurse 02/21/22 documented as of this encounter
--- OUTSIDE RECORDS SUMMARY | 2024-04-11 00:47 | XMS_ITS | Encounter Summary ---
Author Organization [facility] [employer] Care Team Providers Care Avionics Electronics Technician Name Role Phone Lucero Hood MD Unavailable Unavail able Edna Yoder MD Primary Care Provider [phone] Abby Dinh APRN, CARDIAC TECHNOLOGIST Unavailable Encounter Details Date Type Department Care Team (Latest Contact Info) Description 06/13/2023 Travel Social History Tobacco Use Types Packs/Day [...] Master's degree (e.g., MA, MS, Marcellus, MEd, COMMUNITY SERVICE OFFICER, JOEY) 05/07/2020 Sexually Active Control Partners Comments Yes Male Comments No Sex and Gender Information Value Date Recorded Sex Assigned at Not on file Legal Sex Female 7:07 PM CDT Gender Identity Not on file Sexual Orientation Not on file documented as of this encounter Plan of Treatment Upcoming Encounters Date Type Department Care Team (Late st Contact Info) Description 04/14/2024 7:00 AM ROOFING SUBCONTRACTOR Appointment [facility] Mammography 1 [facility] [place] [address] Ravi Krishna MD [address] [facility] [address] [place] [address] 07/08/2024 9:30 AM CDT Office Visit [facility] - Pulmonology & Sleep Medicine - [place] [address] [place] [address] Abby Dinh APRN, CARDIAC TECHNOLOGIST #[address] [address] documented as of this encounter Goals Goal Patient Goal Type Associated Problems Recent Progress Patient-Stated? Author Grief Behavioral Health On track( 021 3:59 PM CDT) Mary Jane Morris, KRISTA Note: Brigid will cope with grief more effectively Goal Reviewed with: patient Readiness to change: Ready to change Department associated with goal: [facility] BEHAVIORAL HEALTH SERVICES Steps to [...] Total Score: 9 06/04/19 21 9:00 AM ROOFING SUBCONTRACTOR documented as of this encounter Care Teams Avionics Electronics Technician Relationship Specialty Start Date End Date Edna Yoder MD [place] [facility] [place] [address] PCP - General Internal Medicine 02/17/23 Lucero Hood MD Obstetrics & Gynecology 03/20/16 Abby Dinh APRN, AMANDEEP #2 [facility] [address] [place] [address] Nurse Practitioner Advanced Practice Nurse 02/21/22 documented as of this encounter
--- OUTSIDE RECORDS SUMMARY | 2024-04-11 00:47 | XMS_ITS | Encounter Summary ---
Author Organization [facility] [employer] Care Team Providers Care Molding Line Assistant Name Role Phone Lucero Hood MD Unavailable Unavail able Edna Yoder MD Primary Care Provider [phone] Abby Dinh APRN, REMNANT SORTER Unavailable [phone] Encounter Details Date Type Department Care Team (Latest Contact Info) Description 02/25/2023 Travel Social History Tobacco Use Types Packs/Day [...] Master's degree (e.g., MA, MS, Marcellus, MEd, STOCK SPECULATOR, JOEY) 05/07/2020 Sexually Active Control Partners Comments Yes Male Comments No Sex and Gender Information Value Date Recorded Sex Assigned at Not on file Legal Sex Female 7:07 PM CDT Gender Identity Not on file Sexual Orientation Not on file documented as of this encounter Plan of Treatment Upcoming Encounters Date Type Department Care Team (Late st Contact Info) Description 04/14/2024 7:00 AM INDUSTRIAL MACHINE SYSTEM TECHNICIAN Appointment [facility] Mammography 1 [facility] [place] [address] Ravi Krishna MD [address] [facility] [address] [place] [address] 07/08/2024 9:30 AM CDT Office Visit [facility] - Pulmonology & Sleep Medicine - [place] [address] [place] [address] Abby Dinh APRN, REMNANT SORTER #[address] [address] documented as of this encounter Goals Goal Patient Goal Type Associated Problems Recent Progress Patient-Stated? Author [facility] On track( 021 3:59 PM CDT) Mary Jane Morris, KRISTA Note: Brigid will cope with grief more effectively Goal Reviewed with: patient Readiness to change: Ready to change Department associated with goal: [facility] Steps to achieve [...] Total Score: 9 06/04/19 21 9:00 AM INDUSTRIAL MACHINE SYSTEM TECHNICIAN documented as of this encounter Care Teams Molding Line Assistant Relationship Specialty Start Date End Date Edna Yoder MD COUNTRY [facility] [place] [address] PCP - General Internal Medicine 02/17/23 Lucero Hood MD Obstetrics & Gynecology 03/20/16 Abby Dinh APRN, AMANDEEP #2 [facility] [address] [place] [address] Nurse Practitioner Advanced Practice Nurse 02/21/22 documented as of this encounter
--- OUTSIDE RECORDS SUMMARY | 2024-04-11 00:47 | XMS_ITS | Encounter Summary ---
Author Organization [facility] Care Team Providers Care Passenger Tire Builder Name Role Phone Lucero Hood MD Unavailable Unavail able Melonie Ochoa MD Primary Care Provider [phone] Abby Dinh APRN, MULTI MISSION HELICOPTER AIRCREWMAN Unavailable [phone] Encounter Details Date Type Department Care Team (Latest Contact Info) Description 08/14/2022 Travel Social History Tobacco Use Types Packs/Day [...] Master's degree (e.g., MA, MS, Marcellus, MEd, MACHINE CANDLE MOLDER, JOEY) 05/07/2020 Sexually Active Control Partners Comments [...] st Contact Info) Description 04/14/2024 7:00 AM FURRIER APPRENTICE Appointment [facility] Mammography 1 [place] [address] Ravi Krishna MD [address] [facility] [address] [facility] 105 [place] [address] 07/08/2024 9:30 AM CDT Office Visit [facility] - Pulmonology & Sleep Medicine - [place] [address]2 [place] [address] Abby Dinh APRN, MULTI MISSION HELICOPTER AIRCREWMAN #2 [facility] [address] [place] [address] documented as of this encounter Goals Goal Patient Goal Type Associated Problems Recent Progress Patient-Stated? Author [facility] On track( 021 3:59 PM CDT) Mary Jane Morris LCSW Note: Brigid will cope with grief more effectively Goal Reviewed with: patient Readiness to change: Ready to change Department associated with goal: [facility] Steps to [...] Total Score: 9 06/04/19 21 9:00 AM FURRIER APPRENTICE documented as of this encounter Care Teams Passenger Tire Builder Relationship Specialty Start Date End Date Melonie Ochoa MD PCP - General Family Medicine 11/12/18 02/16/23 Lucero Hood MD Obstetrics & Gynecology 03/20/16 Abby Dinh APRN, MULTI MISSION HELICOPTER AIRCREWMAN #[address] [address] Nurse Practitioner Advanced Practice Nurse 02/21/22 documented as of this encounter
--- OUTSIDE RECORDS SUMMARY | 2024-04-11 00:47 | XMS_ITS | Encounter Summary ---
Author Organization [facility] HealthCare Address [address] [place] [address] Phone Care Team Providers Care Electronics Inspector Name Role Phone Lucero Hood MD Unavailable Unavail able Edna Yoder MD Primary Care Provider Abby Dinh APRN, PLANT BREEDER Unavailable [phone] Reason for Referral * Radiology Services (Routine) - Authorized Specialty Diagnoses / Procedures Referred By Contac t Referred To Contact Radiology Diagnoses Visit for screening mammogram Procedures KAYLEEN SCREENING BILATERAL DIGITAL W CAD Ravi Krishna MD [address] [facility] [address] [address] Phone: tel: fax: Referral ID Status Reason Start Date Expiration Date V isits Requested Visits Authorized [id number] Authorized 12/16/2023 1 1 Encounter Details Date Type Department Care Team (Latest Contact Info) Description 12/16/2023 Transcribe Orders [facility] Central Scheduling 1 [place] [address] Ravi Krishna MD [address] [facility] [address] [place] [address] Visit for screening mammogram (Primary Dx) Social History Tobacco Use Types [...] Master's degree (e.g., MA, MS, Marcellus, MEd, SPONGE DIVER, JOEY) 05/07/2020 Sexually Active Control Partners Comments Yes Male Comments No Sex and Gender Information Value Date Recorded Sex Assigned at Not on file Legal Sex Female 7:07 PM CDT Gender Identity Not on file Sexual Orientation Not on file documented as of this encounter Plan of Treatment Upcoming Encounters Date Type Department Care Team (Late st Contact Info) Description 04/14/2024 7:00 AM RN CVOR Appointment [facility] Mammography 1 [place] [address] Ravi Krishna MD [address] [address] 07/08/2024 9:30 AM CDT Office Visit [facility] - Pulmonology & Sleep Medicine [facility] #2 [place] [address] Abby Dinh APRN, AMANDEEP #[address] [address] Scheduled Orders Name Type Priority Associated Diagnoses Orde r Schedule KAYLEEN SCREENING BILATERAL DIGITAL W CAD Imaging Routine Visit for screening mammogram Expected: 12/16/2023, Expires: 12/15/2024 documented as of this encounter Goals Goal Patient Goal Type Associated Problems Recent Progress Patient-Stated? Author [facility] On track( 021 3:59 PM CDT) No Mary Jane Norman LCSW Note: Brigid will cope with grief more effectively Goal Reviewed with: patient Readiness to change: Ready to change Department associated with goal: [facility] Steps to achieve goal: [...] as of this encounter Visit Diagnoses Diagnosis Visit for screening mammogram- Primary Other screening mammogram documented in this encounter Additional Health Concerns Assessment Noted Time PHQ-9 Depression Total Score: 9 06/04/19 21 9:00 AM RN CVOR documented as of this encounter Care Teams Electronics Inspector Relationship Specialty Start Date End Date Edan Yoder MD [address] [place] [address] PCP - General Internal Medicine 02/17/23 Lucero Hood MD Obstetrics & Gynecology 03/20/16 Abby Dinh, MOISÉS, PLANT BREEDER #[address] [address] Nurse Practitioner Advanced Practice Nurse 02/21/22 documented as of this encounter
--- OUTSIDE RECORDS SUMMARY | 2024-04-11 00:47 | XMS_ITS | Encounter Summary ---
Author Organization [facility] Address [address] [place] [address] Phone Care Team Providers Care Relief Driller Name Role Phone Lucero Hood MD Unavailable Unavail able Melonie Ochoa MD Primary Care Provider Abby Dinh APRN, CNP Unavailable Encounter Details Date Type Department Care Team (Late st Contact Info) Description 08/11/2022 Telephone [facility] Call Center [address] [place] [address] Melonie Ochoa MD [address] [place] [address] Social History Tobacco Use Types Packs/Day Years [...] Master's degree (e.g., MA, MS, Marcellus, MEd, TAB BUILDER, JOEY) 05/07/2020 Sexually Active Control Partners Comments Yes Male Comments No Sex and Gender Information Value Date Recorded Sex Assigned at Not on file Legal Sex Female 7:07 PM CDT Gender Identity Not on file Sexual Orientation Not on file documented as of this encounter Miscellaneous Notes * Telephone Encounter - Maranda Lopez RN - 08/11/2022 9:51 AM CDT Symptom: Skin Infection - Caller Reports Outcome: Schedule an appointment within 3 days Reason: Caller denied all higher acuity questions Caller denied: * Fast-spreading redness * Fever documented in this encounter Plan of Treatment Upcoming Encounters Date Type Department Care Team (Late st Contact Info) Description 04/14/2024 7:00 AM COMMUNICATIONS CONTROLLER Appointment [facility] Mammography 1 [place] [address] Ravi Krishna MD [address] [facility] [address] [facility] 105 [place] [address] 07/08/2024 9:30 AM CDT Office Visit [facility] - Pulmonology & Sleep Medicine - [place] [address]2 [place] [address] Abby Dinh APRN, MISSILE TRACKING TECHNICIAN #[address] [address] documented as of this encounter Goals Goal Patient Goal Type Associated Problems Recent Progress Patient-Stated? Author [facility] On track( 021 3:59 PM CDT) Mary Jane Morris LCSW Note: Brigid will cope with grief more effectively Goal Reviewed with: patient Readiness to change: Ready to change Department associated with goal: [facility] Steps [...] Total Score: 9 06/04/19 21 9:00 AM COMMUNICATIONS CONTROLLER documented as of this encounter Care Teams Relief Driller Relationship Specialty Start Date End Date Melnoie Ochoa MD PCP - General Family Medicine 11/12/18 02/16/23 Lucero Hood MD Obstetrics & Gynecology 03/20/16 Abby Dinh APRN, MISSILE TRACKING TECHNICIAN [address] [place] [address] Nurse Practitioner Advanced Practice Nurse 02/21/22 documented as of this encounter
--- OUTSIDE RECORDS SUMMARY | 2024-04-11 00:47 | XMS_ITS | Encounter Summary ---
Author Organization [facility] Care Team Providers Care Sales Apprentice Name Role Phone Lucero Hood MD Unavailable Unavail able Melonie Ochoa MD Primary Care Provider [phone] Abby Dinh APRN, TAXATION INSPECTOR Unavailable [phone] Encounter Details Date Type Department Care Team (Latest Contact Info) Description 10/02/2022 Travel Social History Tobacco Use Types Packs/Day [...] Master's degree (e.g., MA, MS, Marcellus, MEd, ENERGY CONSERVATION SPECIALIST, JOEY) 05/07/2020 Sexually Active Control Partners Comments [...] PM CDT documented as of this encounter Plan of Treatment Upcoming Encounters Date Type Department Care Team (Late st Contact Info) Description 04/14/2024 7:00 AM FINISHER MACHINE Appointment [facility] Mammography 1 [place] [address] Ravi Krishna MD [address] [facility] 162 [facility] 105 [place] [address] 07/08/2024 9:30 AM CDT Office Visit [facility] - Pulmonology & Sleep Medicine - [place] [address]2 [place] [address] Abby Dinh APRN, TAXATION INSPECTOR #2 [facility] 105 [place] [address] documented as of this encounter Goals Goal Patient Goal Type Associated Problems Recent Progress Patient-Stated? Author [facility] On track( 021 3:59 PM CDT) Mary Jane Morris LCSW Note: Brigid will cope with grief more effectively Goal Reviewed with: patient Readiness to change: Ready to change Department associated with goal: [facility] Steps [...] Total Score: 9 06/04/19 21 9:00 AM FINISHER MACHINE documented as of this encounter Care Teams Sales Apprentice Relationship Specialty Start Date End Date Melonie Ochoa MD PCP - General Family Medicine 11/12/18 02/16/23 Lucero Hood MD Obstetrics & Gynecology 03/20/16 Abby Dinh APRN, TAXATION INSPECTOR #[address] [address] Nurse Practitioner Advanced Practice Nurse 02/21/22 documented as of this encounter
--- OUTSIDE RECORDS SUMMARY | 2024-04-11 00:47 | XMS_ITS | Encounter Summary ---
Author Organization [facility] [employer] Care Team Providers Care Internal Control Manager Name Role Phone Lucero Hood MD Unavailable Unavail able Edna Yoder MD Primary Care Provider [phone] Abby Dinh APRN, ENVIRONMENTAL ENGINEER SCIENTIST Unavailable Encounter Details Date Type Department Care Team (Latest Contact Info) Description 07/10/2023 Travel Social History Tobacco Use Types Packs/Day [...] Master's degree (e.g., MA, MS, Marcellus, MEd, PRINCIPAL TECHNICAL WRITER, JOEY) 05/07/2020 Sexually Active Control Partners Comments Yes Male Comments No Sex and Gender Information Value Date Recorded Sex Assigned at Not on file Legal Sex Female 7:07 PM CDT Gender Identity Not on file Sexual Orientation Not on file documented as of this encounter Plan of Treatment Upcoming Encounters Date Type Department Care Team (Late st Contact Info) Description 04/14/2024 7:00 AM MARINE DRILLER Appointment [facility] Mammography 1 [facility] [place] [address] Ravi Krishna MD [address] [facility] [address] [place] [address] 07/08/2024 9:30 AM CDT Office [facility] - Pulmonology & Sleep Medicine - [place] [address] [place] [address] Abby Dinh APRN, ENVIRONMENTAL ENGINEER SCIENTIST #[address] [address] documented as of this encounter Goals Goal Patient Goal Type Associated Problems Recent Progress Patient-Stated? Author [facility] On track( 021 3:59 PM CDT) Mary Jane Morris, KRISTA Note: Brigid will cope with grief more effectively Goal Reviewed with: patient Readiness to change: Ready to change Department associated with goal: [facility] Steps to achieve [...] Total Score: 9 06/04/19 21 9:00 AM MARINE DRILLER documented as of this encounter Care Teams Internal Control Manager Relationship Specialty Start Date End Date Edna Yoder MD [place]TRY [facility] [place] [address] PCP - General Internal Medicine 02/17/23 Lucero Hood MD Obstetrics & Gynecology 03/20/16 Abby Dinh APRN, AMANDEEP #2 [facility] [address] [place] [address] Nurse Practitioner Advanced Practice Nurse 02/21/22 documented as of this encounter
--- OUTSIDE RECORDS SUMMARY | 2024-04-11 00:47 | XMS_ITS | Encounter Summary ---
Author Organization [facility] [employer] Care Team Providers Care Information Technology Specialist Name Role Phone Lucero Hood MD Unavailable Unavail able Edna Yoder MD Primary Care Provider [phone] Abby Dinh APRN, FILM OR TAPE LIBRARIAN Unavailable Encounter Details Date Type Department Care Team (Latest Contact Info) Description 03/07/2024 Travel Social History Tobacco Use Types Packs/Day [...] Master's degree (e.g., MA, MS, Marcellus, MEd, FRONT DESK CLERK, JOEY) 05/07/2020 Sexually Active Control Partners Comments Yes Male Comments No Sex and Gender Information Value Date Recorded Sex Assigned at Not on file Legal Sex Female 7:07 PM CDT Gender Identity Not on file Sexual Orientation Not on file documented as of this encounter Plan of Treatment Upcoming Encounters Date Type Department Care Team (Late st Contact Info) Description 04/14/2024 7:00 AM ENGINEER INTERNSHIP Appointment [facility] Mammography 1 [facility] [place] [address] Ravi Krishna MD [address] [facility] [address] [place] [address] 07/08/2024 9:30 AM CDT Office Visit [facility] - Pulmonology & Sleep Medicine - [place] #2 [place] [address] Abby Dinh APRN, FILM OR TAPE LIBRARIAN #[address] [address] documented as of this encounter Goals Goal Patient Goal Type Associated Problems Recent Progress Patient-Stated? Author [facility] On track( 021 3:59 PM CDT) Mary Jane Morris, KRISTA Note: Brigid will cope with grief more effectively Goal Reviewed with: patient Readiness to change: Ready to change Department associated with goal: [facility] Steps to [...] Total Score: 9 06/04/19 21 9:00 AM ENGINEER INTERNSHIP documented as of this encounter Care Teams Information Technology Specialist Relationship Specialty Start Date End Date Edna Yoder MD COUNTRY [facility] [place] [address] PCP - General Internal Medicine 02/17/23 Lucero Hood MD Obstetrics & Gynecology 03/20/16 Abby Dinh APRN, AMANDEEP #2 [facility] [address] [place] [address] Nurse Practitioner Advanced Practice Nurse 02/21/22 documented as of this encounter
--- OUTSIDE RECORDS SUMMARY | 2024-04-11 00:47 | XMS_ITS | Clinical Summary ---
Author Organization [facility] Address [address] [place] [address] Phone Care Team Providers Care Machine Packer Name Role Phone Lucero Hood MD Unavailable Unavail able Edna Yoder MD Primary Care Provider Abby Dinh APRN, BRIM BUSTER Unavailable Allergies No known active allergies Medications cetirizine (ZYRTEC) 10 MG Tablet Take 10 mg by mouth daily. Active Cholecalciferol (VITAMIN D PO) Take 1,200 Units by mouth daily. Active Multiple Vitamin (MULTI-VITAMIN PO) Take by mouth daily. Active fluticasone (FLONASE) 50 MCG/ACT SuspensionIndic ations:Seasonal and perennial allergic rhinitis 2 Sprays by Nasal route daily. Use in each nostril as directed. 3 Bottle 1 11/09/2018 Active oxymetazoline (AFRIN NASAL SPRAY) 0.05 % SolutionIndicat ions:Seasonal and perennial allergic rhinitis 2 Sprays by Nasal route 2 times daily. 1 Bottle 11/09/2018 Active EST ESTROGENS-METHY LTEST PO Take by mouth. Active Naltrexone-buPR OPion HCl ER (Contrave) 8-90 MG TABLET SR 12 HR Take by mouth. Active Active Problems Problem Noted Date Diagnosed Date ROBERTO (obstructive sleep apnea) 07/25/2021 Hyperlipidemia 05/17/2020 Depression 05/17/2020 ARTHUR (generalized anxiety disorder) 11/23/2019 Seasonal and perennial allergic rhinitis 019 Obesity (BMI 35.0-39.9 without comorbidity) 10/13 Endometriosis 03/12/2015 Resolved Problems Problem Noted Date Diagnosed Date Resolved Date Suspected sleep apnea 08/06/20212022 Snoring 08/06/2021 10/02/2022 Encounters Date Type Department Care Team Description 03/07/2024 Travel from Last 3 Months Immunizations Immunization Administration Dates Next Due Covid-19, Mrna, Lnp-s, Pf, 30 Mcg/0.3 Ml Dose (P fizer) 06/23/2020,05/26/2020 Influenza Vaccine, Quadrivalent, PF 01/18/2021,1 TDAP Vaccine 11/23/2020 Family History Medical History Relation Name Comments Diabetes Father Cancer Mother Diabetes Mother Diabetes Paternal Grandmother Relation Name Status Comments Father Alive Mother Paternal Grandmother Alive Social History Tobacco Use Types Packs/Day Years [...] Master's degree (e.g., MA, MS, Marcellus, MEd, RURAL ROUTE MAIL CARRIER, JOEY) 05/07/2020 Sexually Active Control Partners Comments [...] Mass Index 35.69 07/10/2023 9:38 AM CDT Plan of Treatment Upcoming Encounters Date Type Department Care Team (Late st Contact Info) Description 04/14/2024 7:00 AM BENEFITS SPECIALIST Appointment [facility] Mammography [address] [place] [address] Ravi Krishna MD [address] [facility] [address] [facility] [address] [place] [address] 07/08/2024 9:30 AM CDT [facility] #2 [place] [id number] Abby Dinh APRN, BRIM BUSTER #2 [facility] [address] [place] [address] Health Maintenance Due Date Last Done Comments Hepatitis C Virus (HCV) Screening 1980 Colonoscopy 2023 Colorectal Cancer Screening 2023 Influenza Immunization (#1) 2023 01/18/2021, 1 Td Immunization Every 10 Years (Adults With 1 Tdap) 11/23/2030 11/23/2020 Respiratory Syncytial Virus (RSV) Immunization (Adult) (1 - 1-dose 75+ series) 2053 Cervical Cancer Screening (CCS) Discontinued Pap Smear Discontinued 09/13/2014 Discussion re Starting/Frequency of Mammograms Completed 02/26/2023, 12/19/2021, 10/12/2020, Additional history exists SARS-COV-2 Immunization Completed 02/29/20 24, 03/22/2023, 01/18/2022, Additional history exists HPV/Cotest Discontinued Hepatitis B Immunization Discontinued Meningococcal Immunization (ACWY) Aged Out No longer eligible based on patient's age to complete this topic Pneumococcal Immunization Combined Aged Out No longer eligible based on patient's age to complete this topic Rotavirus Immunization Aged Out No lo nger eligible based on patient's age to complete this topic Goals Goal Patient Goal Type Associated Problems Recent Progress Patient-Stated? Author [facility] On track( 021 3:59 PM CDT) Mary Jane Morris LCSW Note: Brigid will cope with grief more effectively Goal Reviewed with: patient Readiness to change: Ready to change Department associated with goal: [facility] Steps to [...] aid in managing problematic responses to grief. Procedures Procedure Name Priority Date/Time Associated Diagnosis Comments KAYLEEN SCREENING BILATERAL DIGITAL W CAD W SANDY Routine 02/26/2023 9:00 AM BENEFITS SPECIALIST Encounter for screening mammogram for malignant neoplasm of breast PATHOLOGY CYTOLOGY [place] TENDER RESTORATION LABOR Routine 09/13/2014 from Last 3 Months or Most Recently Relevant to Health Maintenance Results * KAYLEEN SCREENING BILATERAL DIGITAL W CAD W SANDY (02/26/2023 9:00 AM BENEFITS SPECIALIST) Anatomical Region Laterality Modality breast Bilateral Mammography 02/26/2023 9:01 AM BENEFITS SPECIALIST Narrative 02/26/2023 12:10 PM BENEFITS SPECIALIST - KAYLEEN SCREENING BILATERAL DIGITAL W CAD [...] Comparison is made to exams dated: ??12/19/2021 [facility], 10/12/2020, and 10/07/2019 [facility]. ?? BREAST TISSUE:There are scattered fibroglandular [...] La Torre M.D. ? ll/penrad:02/26/2023 11:31:19 ?? Blocker Automatic(s): Renee ??RT Maurice(R)(M), [facility]: [facility] ?? Reading location: [facility] BI-RADS: 1 Negative Procedure Note [...] Comparison is made to exams [facility]: [facility], 10[facility], and 10/[facility]2019 [facility]. BREAST TISSUE:There are scattered fibroglandular densities [...] signed by: Alexandra De La Torre M.D. ll/penrad:02/26/2023 11:31:19 Blocker Automatic(s): Renee Richards RT(R)(M), [facility] letter sent: Normal Exam Reading location: [facility] BI-RADS: 1 Negative us Edna Yoder MD IMG MAMMO ORDERABLES Final Res ult * PATHOLOGY CYTOLOGY [employer] TENDER RESTORATION LABOR (09/13/2014) Specimen of unknown material (specimen) us Lucero Hood MD PATHOLOGY/CYTOLOGY ORDER ZURI Final Result from Last 3 Months or Most Recently Relevant to Health Maintenance Insurance [facility] Care Teams Machine Packer Relationship Specialty Start Date End Date Edna Yoder MD [address] [place] [address] PCP - General Internal Medicine 02/17/23 Lucero Hood MD Obstetrics & Gynecology 03/20/16 Abby Dinh, PRODUCER, BRIM BUSTER #[address] [address] Nurse Practitioner Advanced Practice Nurse 02/21/22
--- OUTSIDE RECORDS SUMMARY | 2024-04-11 00:48 | XMS_ITS | Encounter Summary ---
Author Organization [facility] Care Team Providers Care Secondary Spanish Teacher Name Role Phone Lucero Hood MD Unavailable Unavail able Melonie Ochoa MD Primary Care Provider Encounter Details Date Type Department Care Team (Latest Contact Info) Description 08/05/2021 Travel Social History Tobacco Use Types Packs/Day [...] Master's degree (e.g., MA, MS, Marcellus, MEd, SPECIAL SYSTEMS TECHNICIAN, JOEY) 05/07/2020 Sexually Active Control Partners Comments [...] suspected to have Coronavirus/COVID-19? No / Unsure 08/05/2021 10:54 AM CDT documented as of this encounter Plan of Treatment Upcoming Encounters Date Type Department Care Team ( st Contact Info) Description 04/14/2024 7:00 AM VICE CHAIR Appointment [facility] Mammography 1 [place] [phone] Ravi Krishna MD [address] [facility] [address] [place] [address] 07/08/2024 9:30 AM CDT Office Visit [facility] - Pulmonology & Sleep Medicine - [place] [address] [place] [address] Abby Dinh APRN, BATTERY WRECKER OPERATOR #2 [facility] [address] [place] [address] documented as of this encounter Goals Goal Patient Goal Type Associated Problems Recent Progress Patient-Stated? Author Grief Behavioral Health On track( 021 3:59 PM CDT) Mary Jane Morris, KRISTA Note: Brigid will cope with grief more effectively Goal Reviewed with: patient Readiness to change: Ready to change Department associated with goal: [facility] Steps to achieve goal: [...] Total Score: 9 06/04/19 21 9:00 AM VICE CHAIR documented as of this encounter Care Teams Secondary Spanish Teacher Relationship Specialty Start Date End Date Melonie Ochoa MD PCP - General Family Medicine 11/12/18 02/16/23 Lucero Hood MD Obstetrics & Gynecology 03/20/16 documented as of this encounter
--- OUTSIDE RECORDS SUMMARY | 2024-04-11 00:48 | XMS_ITS | Encounter Summary ---
Author Organization [facility] Address [address] [place] [address] Phone Care Team Providers Care Mud Analysis Well Logging Operator Name Role Phone Lucero Hood MD Unavailable Melonie Erwin MD Primary Care Provider [phone] Encounter Details Date Type Department Care Team (Late st Contact Info) Description 08/30/2021 Transcribe Orders [facility] Sleep Lab 1 [place] [phone] Abby Dinh APRN, SENIOR EXECUTIVE COMPENSATION ANALYST #[address] [address] Sleep apnea, unspecified type (Primary Dx) Social History Tobacco Use Types [...] Master's degree (e.g., MA, MS, Marcellus, MEd, RADIATION TECHNICIAN, JOEY) 05/07/2020 Sexually Active Control Partners Comments Yes Male Comments No Sex and Gender Information Value Date Recorded Sex Assigned at Not on file Legal Sex Female 7:07 PM CDT Gender Identity Not on file Sexual Orientation Not on file COVID-19 Exposure Response Date Recorded In the last 10 days, have andreas brady been in contact with someone who was confirmed or suspected to have Coronavirus/COVID-19? No / Unsure 08/05/2021 10:54 AM CDT documented as of this encounter Plan of Treatment Upcoming Encounters Date Type Department Care Team (Late st Contact Info) Description 04/14/2024 7:00 AM MUTUEL CASHIER Appointment [facility] Mammography 1 [place] [address] Ravi Krishna MD [address] [facility] [address] [place] [address] 07/08/2024 9:30 AM CDT Office Visit [facility] - Pulmonology & Sleep Medicine [facility] [address]2 [place] [address] Abby Dinh APRN, AMANDEEP #2 [facility] [address] [place] [address] documented as of this encounter Goals Goal Patient Goal Type Associated Problems Recent Progress Patient-Stated? Author Grief Behavioral Health On track( 021 3:59 PM CDT) Mary Jane Morris, KRISTA Note: Brigid will cope with grief more effectively Goal Reviewed with: patient Readiness to change: Ready to change Department associated with goal: [facility] Steps to achieve goal: [...] to grief. documented as of this encounter Results * HOME SLEEP STUDY UNATTENDED TYPE III (09/17/2021) Abby Dinh APRN, AMANDEEP [facility] ORDERABL ES Final Result documented in this encounter Visit Diagnoses Diagnosis Sleep apnea, unspecified type- Primary documented in this encounter Additional Health Concerns Assessment Noted Time PHQ-9 Depression Total Score: 9 06/04/19 21 9:00 AM MUTUEL CASHIER documented as of this encounter Care Teams Mud Analysis Well Logging Operator Relationship Specialty Start Date End Date Melonie Ochoa MD PCP - General Family Medicine 11/12/18 02/16/23 Lucero Hood MD Obstetrics & Gynecology 03/20/16 documented as of this encounter
--- OUTSIDE RECORDS SUMMARY | 2024-04-11 00:48 | XMS_ITS | Encounter Summary ---
Author Organization [facility] Address [address] [place] [address] Phone Care Team Providers Care Animal Control Supervisor Name Role Phone Lucero Hood MD, Priya MD Primary Care Provider Reason for Referral * Consult, Test & Initiate Treatment (Less Than 4 Weeks) - Closed Specialty Diagnoses / Procedures Referred By Yanni weaver Referred To Contact Sleep Center Diagnoses Sleep apnea, unspecified type Abby Dinh APRN, CNP Phone: tel: fax: [facility] Sleep Lab [address] [place] [address] Phone: tel: fax: Referral ID Status Reason Start Date Expiration Date Visits Re quested Visits Authorized [id number] Closed 08/29/2021 1 1 Scheduling Instructions Airam is being referred for ROBERTO. Please contact patient for scheduling questions or concerns. Encounter Details Date Type Department Care Team (Late Contact Info) Description 08/29/2021 Telephone [facility] - Pulmonology & Sleep Medicine [facility] [address]2 [place] [phone] Abby Dinh APRN, CNP #[address] [address] Social History Tobacco Use Types Packs/Day Years [...] have received? Master's degree (e.g., MA, MS, aMrcellus, MEd, BARN AND PROPERTY MANAGER, JOEY) 05/07/2020 Sexually Active Control Partners [...] AM CDT documented as of this encounter Miscellaneous Notes * Telephone Encounter - Abby Dinh APRN, CNP - 08/29/2021 1:22 PM CDT In lab study denied, order placed for HST. documented in this encounter Plan of Treatment Upcoming Encounters Date Type Department Care Team (Late st Contact Info) Description 04/14/2024 7:00 AM PHYSICIAN ANESTHESIOLOGIST Appointment [facility] Mammography 1 [place] [address] Ravi Krishna MD [address] [facility] [address] [facility] [address] [place] [address] 07/08/2024 9:30 AM CDT Office Visit [facility] - Pulmonology & Sleep Medicine - [place] [address] [place] [phone] Abby Dinh, MOISÉS, WARP SPLITTER #[address] [address] Scheduled Referrals Name Type Priority Associated Diagnoses Order Schedule SLEEP STUDY REFERRAL Outpatient Referral Less Than 4 weeks Sleep apnea, unspecified type Expected: 08/29/2021, Expires: 08/29/2022 documented as of this encounter Goals Goal Patient Goal Type Associated Problems Recent Progress Patient-Stated? Author Grief Behavioral Health On track( 021 3:59 PM CDT) Mary Jane oMrris, INSTRUMENT INSTALLER Note: Brigid will cope with grief more effectively Goal Reviewed with: patient Readiness to change: Ready to change Department associated with goal: [facility] Steps to achieve goal: [...] as of this encounter Visit Diagnoses Diagnosis Sleep apnea, unspecified type- Primary documented in this encounter Additional Health Concerns Assessment Noted Time PHQ-9 Depression Total Score: 9 06/04/19 21 9:00 AM PHYSICIAN ANESTHESIOLOGIST documented as of this encounter Care Teams Animal Control Supervisor Relationship Specialty Start Date End Date Melonie Ochoa MD PCP - General Family Medicine 11/12/18 02/16/23 Lucero Hood MD Obstetrics & Gynecology 03/20/16 documented as of this encounter
--- OUTSIDE RECORDS SUMMARY | 2024-04-11 00:48 | XMS_ITS | Encounter Summary ---
Author Organization [facility] Address [address] [place] [address] Phone Care Team Providers Care Manager Social Media Name Role Phone Lucero Hood MD Unavailable Unavail able Melonie Ochoa MD Primary Care Provider [phone] Edna Yoder MD Primary Care Provider [phone] Abby Dinh APRN, AMANDEEP Unavailable Reason for Visit * Reason Comments Medication Refill Encounter Details Date Type Department Care Team (Late st Contact Info) Description 11/04/[address] [facility] - Primary Care - [place] [address] [place] [address] Melonie Ochoa MD [address] [place] [address] Medication Refill Social History Tobacco Use Types Packs/Day Years [...] Master's degree (e.g., MA, MS, Marcellus, MEd, WOOD PATTERN MAKER, JOEY) 05/07/2020 Sexually Active Control Partners Comments [...] was confirmed or suspected to have Coronavirus/COVID-19? Yes 10/24/2021 8:09 AM CDT documented as of this encounter Miscellaneous Notes * Telephone Encounter - Eugenie Thomas RN - 11/04/2021 10:46 AM CDT Refill request too soon. documented in this encounter Plan of Treatment Upcoming Encounters Date Type Department Care Team (Late st Contact Info) Description 04/14/2024 7:00 AM FORKLIFT MECHANIC Appointment [facility] Mammography 1 [place] [address] Ravi Krishna MD [address] [facility] [address] [address] 07/08/2024 9:30 AM CDT Office Visit [facility] - Pulmonology & Sleep Medicine [facility] #2 [place] [address] Abby Dinh APRN, DIRECTOR MARKET RESEARCH #[address] [address] documented as of this encounter Goals Goal Patient Goal Type Associated Problems Recent Progress Patient-Stated? Author Grief Behavioral Health On track( 021 3:59 PM CDT) No Mary Jane Norman LCSW Note: Brigid will cope with grief more effectively Goal Reviewed with: patient Readiness to change: Ready to change Department associated with goal: [facility] Steps to achieve [...] as of this encounter Visit Diagnoses Diagnosis ARTHUR (generalized anxiety disorder) Generalized anxiety disorder Depression, unspecified depression type documented in this encounter Additional Health Concerns Assessment Noted Time PHQ-9 Depression Total Score: 9 06/04/19 21 9:00 AM FORKLIFT MECHANIC documented as of this encounter Care Teams Manager Social Media Relationship Specialty Start Date End Date Melonie Ochoa MD PCP - General Family Medicine 11/12/18 02/16/23 Edna Yoder MD [employer] [facility] [place] [address] PCP - General Internal Medicine 02/17/23 Lucero Hood MD Obstetrics & Gynecology 03/20/16 Abby Dinh, GAUGER CHIEF DELIVERY, DIRECTOR MARKET RESEARCH #[address] [address] Nurse Practitioner Advanced Practice Nurse 02/21/22 documented as of this encounter
--- OUTSIDE RECORDS SUMMARY | 2024-04-11 00:48 | XMS_ITS | Encounter Summary ---
Author Organization [facility] Care Team Providers Care Metrology Specialist Name Role Phone Lucero Hood MD Unavailable Unavail able Melonie Ochoa MD Primary Care Provider Encounter Details Date Type Department Care Team (Latest Contact Info) Description 02/20/2022 Travel Social History Tobacco Use Types Packs/Day [...] Master's degree (e.g., MA, MS, Marcellus, MEd, ENGINEER SYSTEM ADMINISTRATOR, JOEY) 05/07/2020 Sexually Active Control Partners Comments [...] suspected to have Coronavirus/COVID-19? No / Unsure 02/20/2022 7:46 PM BULK MAIL TECHNICIAN documented as of this encounter Plan of Treatment Upcoming Encounters Date Type Department Care Team ( st Contact Info) Description 04/14/2024 7:00 AM BULK MAIL TECHNICIAN Appointment [facility] Mammography 1 [place] [phone] Ravi Krishna MD [address] [facility] [address] [place] [address] 07/08/2024 9:30 AM CDT Office Visit [facility] - Pulmonology & Sleep Medicine - [place] #[address] [place] [address] Abby Dinh APRN, REFERENCE SERVICES HEAD #2 [facility] [address] [place] [address] documented as of this encounter Goals Goal Patient Goal Type Associated Problems Recent Progress Patient-Stated? Author Grief Behavioral Health On track( 021 3:59 PM CDT) Mary Jane Morris, KRISTA Note: Brigid will cope with grief more effectively Goal Reviewed with: patient Readiness to change: Ready to change Department associated with goal: [facility] Steps to achieve [...] Total Score: 9 06/04/19 21 9:00 AM BULK MAIL TECHNICIAN documented as of this encounter Care Teams Metrology Specialist Relationship Specialty Start Date End Date Melonie Ochoa MD PCP - General Family Medicine 11/12/18 02/16/23 Lucero Hood MD Obstetrics & Gynecology 03/20/16 documented as of this encounter
--- OUTSIDE RECORDS SUMMARY | 2024-04-11 00:48 | XMS_ITS | Encounter Summary ---
Author Organization [facility] Address [address] [place] [address] Phone Care Team Providers Care Front End Web Designer Name Role Phone Lucero Hood MD Unavailable Unavail able Melonie Ochoa MD Primary Care Provider Abby Dinh APRN, CNP Unavailable Reason for Visit * Reason Comments Sleep Apnea Encounter Details Date Type Department Care Team (Late st Contact Info) Description 02/21/2022 11:00 AM COMMISSIONED DEFENCE FORCE OFFICER Office Visit [facility] - Pulmonology & Sleep Medicine [facility] [address]2 [place] [address] Abby Dinh APRN, CATHEAD WORKER #[address] [address] Obstructive sleep apnea syndrome (Primary Dx); Obesity (BMI 35.0-39.9 without comorbidity) [...] Master's degree (e.g., MA, MS, Marcellus, MEd, DIET AIDE, JOEY) 05/07/2020 Sexually Active Control Partners Comments [...] Coronavirus/COVID-19? No / Unsure 02/20/2022 7:46 PM COMMISSIONED DEFENCE FORCE OFFICER documented as of this encounter Last Filed Vital Signs Vital Sign Reading Time Taken Comments Blood Pressure 130/60 02/21/2022 11:09 AM COMMISSIONED DEFENCE FORCE OFFICER Pulse 67 02/21/2022 11:09 AM COMMISSIONED DEFENCE FORCE OFFICER Temperature 36.3 ??C (97.3 ??F) 02/21/2022 1 1:09 AM COMMISSIONED DEFENCE FORCE OFFICER Respiratory Rate 14 02/21/2022 11:0 9 AM COMMISSIONED DEFENCE FORCE OFFICER Oxygen Saturation 98% 02/21/2022 11: 09 AM COMMISSIONED DEFENCE FORCE OFFICER Inhaled Oxygen Concentration - - Weight 108.3 kg (238 lb 11.2 oz) 2021 11:09 AM COMMISSIONED DEFENCE FORCE OFFICER Height 167.6 cm (5' 6 ) 02/21/2022 11:0 9 AM COMMISSIONED DEFENCE FORCE OFFICER Body Mass Index 38.53 02/21/2022 11:09 AM COMMISSIONED DEFENCE FORCE OFFICER documented in this encounter Patient Instructions * Patient Instructions* Abby Dinh APRN, AMANDEEP - 02/21/2022 11:00 AM COMMISSIONED DEFENCE FORCE OFFICER Images from the original note were not included. Daily Cleaning Wipe down your mask using [...] towel or hung on a hook or pattern changer and repairer. Wipe down your CPAP machine with a [...] thoroughly rinsing and then placing in your work car operator's top rack for washing. And keep it clean by using only distilled water to prevent mineral deposits that can build up and cause damage to your machine. 5 Steps for Eating Healthier Changing the way you eat can improve your health. It can lower your cholesterol and blood pressure,and help you stay at a healthy weight. Your diet doesn???t have to be bland and boring to be healthy. Just watch your calories and follow these steps: Step 1. Eat fewer unhealthy fats ?? Choose more fish and lean meats instead of fatty cuts of meat. ?? Skip butter and lard, and use less margarine. ?? Pass on foods that have palm, coconut, or hydrogenated oils. ?? Eat fewer high-fat dairy foods like cheese, ice cream, and whole milk. ?? Get a heart-healthy cookbook and try some low-fat recipes. Step 2. Go light on salt ?? Keep the saltshaker off the table. ?? Limit high-salt ingredients, such as soy sauce, bouillon, and garlic salt. ?? Instead of adding salt when cooking, season your food with herbs and flavorings. Try lemon, garlic, and onion, or salt-free herb seasonings. ?? Limit convenience foods, such as boxed or canned foods and restaurant food. ?? Read food labels and choose lower-sodium options. Step 3. Limit sugar ?? Pause before you add sugars to pancakes, cereal, coffee, or tea. This includes white and brown table sugar, syrup, honey, and molasses. Cut your usual amount by half. ?? Use non-sugar sweeteners. Stevia, aspartame, and sucralose can satisfy a sweet tooth without adding calories. ?? Swap out sugar-filled soda and other drinks. Buy sugar-free or low-calorie beverages. Remember water is always the best choice. ?? Read labels and choose foods with less added sugar. Keep in mind that dairy foods and foods withfruit will have some natural sugar. ?? Cut the sugar in recipes by 1/3 to 1/2. Boost the flavor with extracts like almond, vanilla, or orange. Or add spices such as cinnamon or nutmeg. Step 4. Eat more fiber ?? Eat fresh fruits and vegetables every day. ?? Boost your diet with whole grains. Go for oats, whole-grain rice, and bran. ?? Add beans and lentils to your meals. ?? Drink more water to match your fiber increase to help prevent constipation. Step 5. Pay attention to serving sizes 1. Remember that a serving size is a standard measurement. It will let you track the amount of fat,calories, and other nutrients in the food you eat. 2. Read the Nutrition Facts label on packaged foods to learn their serving sizes. 3. Use serving sizes to assess how much food you put on your plate. Pay attention to your portions.How many servings are you eating? 4. Keep in mind that your needs may change if you???re more active or less active, or if you have other factors that change your calorie needs. 5. Use your hand to help you measure serving sizes. For example: ? 1 teaspoon: This is about the size of the first joint of your thumb. ? 1 tablespoon: This is about the size of the first 2 joints of your thumb. ? 1 ounce: This is about what you can fit in your cupped hand. ? 2 to 3 ounces: This is about size of the palm of your hand. ? ?? cup: This is also about what you can fit in your cupped hand. ? 1 cup: This is about the size of your fist. Naartjie last reviewed this educational content on 10/12/2019 ?? [id number] [employer]. All rights reserved. This information is not intended as a substitute for professional medical care. Always follow your healthcare professional's instructions. ISSIONED DEFENCE FORCE OFFICER documented in this encounter Progress Notes * Abby Dinh APRN, CNP - 02/21/2022 11:00 AM CST Chief Complaint: Chief Complaint Patient presents with ??? Sleep Apnea Subjective: Ms. Airam Munoz is a 41 y.o. female here today for above. Patient is using CPAP greater than 4 hours 75% of the time and is benefiting from use. AHI is 0.8. Last sleep study was on 09/16/21 showing RDI at 27.1 with SpO2 down to 82%. DME is [facility]. APAP is set at 5-15cm with FFM. No significant mask leak seen on download. On occasion she will fall asleep without it due to being extremely tired. States she still wants tosleep 10 plus hours per night. Does notice improvement with dosing off during the day. Has been on machine around 2 months. ROS: Review of Systems Constitutional: Negative. HENT: Negative. Eyes: Negative. Respiratory: Negative. Cardiovascular: Negative. Gastrointestinal: Negative. Endocrine: Negative. Genitourinary: Negative. Musculoskeletal: Negative. Skin: Negative. Allergic/Immunologic: Negative. Neurological: Negative. Hematological: Negative. Psychiatric/Behavioral: Positive for sleep disturbance (on APAP). VITAL SIGNS: BP Readings from Last 3 Encounters: 02/21/22 130/60 10/24/21 118/82 08/06/21 112/74 Wt Readings from Last 3 Encounters: 02/21/22 238 lb 11.2 oz (108.3 kg) 10/24/21 229 lb (103.9 kg) 08/06/21 228 lb 6.4 oz (103.6 kg) Vitals: 02/21/22 1109 BP: 130/60 Pulse: 67 Resp: 14 Temp: 97.3 ??F (36.3 ??C) SpO2: 98% Weight: 238 lb 11.2 oz (108.3 kg) Height: 5' 6 (1.676 m) Body mass index is 38.53 kg/m??. PHYSICAL EXAM: Physical Exam Vitals reviewed. [...] content normal. Judgment: Judgment normal. Labs/Studies Reviewed: APAP Data Download, Sleep Study Assessment/Plan: Diagnoses and all orders for this visit: Obstructive sleep apnea syndrome Obesity (BMI 35.0-39.9 without comorbidity) Encouraged patient to continue use of APAP at current settings. Educated on importance of continued healthy diet and exercise to control BMI. Discussed sleep hygiene as stated below. Plan a regular bedtime and wakeup schedule. Do quiet hobbies and activities in the evening. Exercise in the mornings or afternoons only. Avoid daytime napping. Avoid ekkf-vdl-[id number] medications such as allergy medicines. Avoid tobacco products. Avoid caffeine after 4 p.m. (coffee, raheel, tea, or chocolate) and earlier if possible. Avoid alcohol. Avoid heavy meals within 3 hours of bedtime. Keep the bedroom quiet, dark, cool, and comfortable, with a good mattress and comfortable pillows. Take a warm bath in the evening. Drink warm milk at bedtime. Listen to quiet music to induce sleep. Avoid watching television in bed. Minimize nighttime light exposure. Use relaxation techniques to reduce cognitive arousal at bedtime: progressive muscle relaxation, guided imagery, meditation, breathing exercises, or yoga. Daily Cleaning Wipe down your mask using [...] towel or hung on a hook or pattern changer and repairer. Wipe down your CPAP machine with a [...] thoroughly rinsing and then placing in your work car operator's top rack for washing. And keep it clean by using only distilled water to prevent mineral deposits that can build up and cause damage to your machine. FOLLOWUP: Follow-up Information Return in about 6 months (around 08/21/2022). Abby Dinh APRN, AMANDEEP Past medical, surgical, social and family history has been reviewed and updated as necessary. Medications and allergies has been reviewed and updated. I discussed all new medications and potential side effects or risks associated with them. Patient is to contact our office with any concerns. Patient instructions and educational materials were given to the patient. Patient (or patient housing management representative) demonstrates verbal understanding of instructions given. [...] our referral team or the referring physician. ISSIONED DEFENCE FORCE OFFICER documented in this encounter Plan of Treatment Upcoming Encounters Date Type Department Care Team (Late st Contact Info) Description 04/14/2024 7:00 AM COMMISSIONED DEFENCE FORCE OFFICER Appointment [facility] Mammography 1 [place] [address] Ravi Krishna MD [address] [facility] [address] [facility] [address] [place] [address] 07/08/2024 9:30 AM CDT Office Visit [facility] - Pulmonology & Sleep Medicine [facility] [address] [place] [address] Abby Dinh APRN, AMANDEEP [address] [address] documented as of this encounter Goals Goal Patient Goal Type Associated Problems Recent Progress Patient-Stated? Author Grief Behavioral Health On track( 021 3:59 PM CDT) Mary Jane Morris LCSW Note: Brigid will cope with grief more effectively Goal Reviewed with: patient Readiness to change: Ready to change Department associated with goal: [facility] Steps [...] as of this encounter Visit Diagnoses Diagnosis Obstructive sleep apnea syndrome- Primary Obstructive sleep apnea (adult) (pediatric) Obesity (BMI 35.0-39.9 without comorbidity) Obesity, unspecified documented in this encounter Additional Health Concerns Assessment Noted Time PHQ-9 Depression Total Score: 9 06/04/19 21 9:00 AM COMMISSIONED DEFENCE FORCE OFFICER documented as of this encounter Care Teams Front End Web Designer Relationship Specialty Start Date End Date Melonie Ochoa MD PCP - General Family Medicine 11/12/18 02/16/23 Lucero Hood MD Obstetrics & Gynecology 03/20/16 Abby Dinh APRN, CATHEAD WORKER #[address] [address] Nurse Practitioner Advanced Practice Nurse 02/21/22 documented as of this encounter
--- OUTSIDE RECORDS SUMMARY | 2024-04-11 00:48 | XMS_ITS | Encounter Summary ---
Author Organization [facility] Address [address] [place] [address] Phone Care Team Providers Care Tandem Mill Sticker Name Role Phone Lucero Hood MD Unavailable Unavail able Melonie Ochoa MD Primary Care Provider [phone] Edna Yoder MD Primary Care Provider [phone] Abby Dinh APRN, AMANDEEP Unavailable Reason for Visit * Reason Comments Medication Refill Encounter Details Date Type Department Care Team (Late st Contact Info) Description 09/01/2021 Refill [facility] - Primary Care - [place] [address] [address] Melonie Ochoa MD [address] [place] [address] Medication Refill Social History Tobacco [...] Master's degree (e.g., MA, MS, Marcellus, MEd, HYPERBARIC TECHNOLOGIST, JOEY) 05/07/2020 Sexually Active Control Partners Comments [...] st Contact Info) Description 04/14/2024 7:00 AM ENVIRONMENTAL PROJECTS ADVISOR Appointment [facility] Mammography 1 [place] [address] Ravi Krishna MD [address] [facility] [address] [facility] [address] [place] [address] 07/08/2024 9:30 AM CDT Office Visit [facility] - Pulmonology & Sleep Medicine [facility] [address]2 [place] [address] Abby Dinh APRN, TAPE STRINGER #2 [facility] [address] [place] [address] documented as of this encounter Goals Goal Patient Goal Type Associated Problems Recent Progress Patient-Stated? Author Grief Behavioral Health On track( 021 3:59 PM CDT) No Mary Jane Norman, KRISTA Note: Brigid will cope with grief more effectively Goal Reviewed with: patient Readiness to change: Ready to change Department associated with goal: [facility] Steps to achieve [...] ARTHUR (generalized anxiety disorder) Generalized anxiety disorder documented in this encounter Additional Health Concerns Assessment Noted Time PHQ-9 Depression Total Score: 9 06/04/19 21 9:00 AM ENVIRONMENTAL PROJECTS ADVISOR documented as of this encounter Care Teams Tandem Mill Sticker Relationship Specialty Start Date End Date Melonie Ochoa MD PCP - General Family Medicine 11/12/18 02/16/23 Edna Yoder MD [address] [place] [address] PCP - General Internal Medicine 02/17/23 Lucero Hood MD Obstetrics & Gynecology 03/20/16 Abby Dinh APRN, TAPE STRINGER #[address] [address] Nurse Practitioner Advanced Practice Nurse 02/21/22 documented as of this encounter
--- OUTSIDE RECORDS SUMMARY | 2024-04-11 00:48 | XMS_ITS | Encounter Summary ---
Author Organization [facility] [employer] Care Team Providers Care Second Steward Name Role Phone Lucero Hood MD Unavailable Unavail able Melonie Ochoa MD Primary Care Provider Encounter Details Date Type Department Care Team (Latest Contact Info) Description 12/19/2021 Travel Social History Tobacco Use Types Packs/Day [...] Master's degree (e.g., MA, MS, Marcellus, MEd, WINDOWS MIGRATION TECHNICIAN, JOEY) 05/07/2020 Sexually Active Control Partners [...] suspected to have Coronavirus/COVID-19? No / Unsure 12/19/2021 5:46 PM CDT documented as of this encounter Plan of Treatment Upcoming Encounters Date Type Department Care Team ( st Contact Info) Description 04/14/2024 7:00 AM CAKE MIXER Appointment [facility] Mammography 1 [place] [id number] Ravi Krishna MD [address] [facility] [address] [place] [address] 07/08/2024 9:30 AM CDT Office Visit [facility] - Pulmonology & Sleep Medicine - [place] [address] [place] [address] Abby Dinh APRN, LESSON INSTRUCTOR #2 [facility] [address] [place] [address] documented as of this encounter Goals Goal Patient Goal Type Associated Problems Recent Progress Patient-Stated? Author Grief Behavioral Health On track( 021 3:59 PM CDT) Mary Jane Morris, KRISTA Note: Brigid will cope with grief more effectively Goal Reviewed with: patient Readiness to change: Ready to change Department associated with goal: [facility] Steps to achieve goal: [...] Total Score: 9 06/04/19 21 9:00 AM CAKE MIXER documented as of this encounter Care Teams Second Steward Relationship Specialty Start Date End Date Melonie Ochoa MD PCP - General Family Medicine 11/12/18 02/16/23 Lucero Hood MD Obstetrics & Gynecology 03/20/16 documented as of this encounter
--- OUTSIDE RECORDS SUMMARY | 2024-04-11 00:48 | XMS_ITS | Encounter Summary ---
Author Organization [facility] Address [address] [place] [address] Phone Care Team Providers Care Cleaning Handyman Name Role Phone Lucero Hood MD Unavailable Unavail able Melonie Ochoa MD Primary Care Provider Reason for Visit * Reason Comments Medication Refill Encounter Details Date Type Department Care Team (Late st Contact Info) Description 09/11/2021 Refill [facility] - Primary Care - [place] [address] [place] [address] Melonie Ochoa MD [address] [place] [address] Medication Refill Social History Tobacco [...] Master's degree (e.g., MA, MS, Marcellus, MEd, SURGICAL INSTRUMENTS INSPECTOR, JOEY) 05/07/2020 Sexually Active Control Partners Comments Yes Male Comments No Sex and Gender Information Value Date Recorded Sex Assigned at Not on file Legal Sex Female 7:07 PM CDT Gender Identity Not on file Sexual Orientation Not on file documented as of this encounter Miscellaneous Notes * Telephone Encounter - Rae Lozoya RN - 09/11/2021 10:47 AM CDT Medication approved and signed per standing order protocol. documented in this encounter Plan of Treatment Upcoming Encounters Date Type Department Care Team (Late st Contact Info) Description 04/14/2024 7:00 AM HANDLE FINISHER Appointment [facility] Mammography 1 [place] [address] Ravi Krishna MD [address] [facility] [address] [facility] [address] [place] [address] 07/08/2024 9:30 AM CDT Office Visit [facility] - Pulmonology & Sleep Medicine - [place] [address] [place] [address] Abby Dinh APRN, STORM DOOR MAKER #2 [facility] [address] [place] [address] documented as of this encounter Goals Goal Patient Goal Type Associated Problems Recent Progress Patient-Stated? Author Grief Behavioral Health On track( 021 3:59 PM CDT) Mary Jane Morris, DIRECTOR TITLE Note: Brigid will cope with grief more [...] Total Score: 9 06/04/19 21 9:00 AM HANDLE FINISHER documented as of this encounter Care Teams Cleaning Handyman Relationship Specialty Start Date End Date Melonie Ochoa MD PCP - General Family Medicine 11/12/18 02/16/23 Lucero Hood MD Obstetrics & Gynecology 03/20/16 documented as of this encounter
--- OUTSIDE RECORDS SUMMARY | 2024-04-11 00:48 | XMS_ITS | Encounter Summary ---
Author Organization [facility] Address [address] [place] [address] Phone Care Team Providers Care Washing Machine Repairer Name Role Phone Lucero Hood MD Unavailable Unavail able Melonie Ochoa MD Primary Care Provider [phone] Reason for Referral * Radiology Services (Routine) - Closed Specialty Diagnoses / Procedures Referred By Yanni weaver Referred To Contact Radiology Diagnoses Encounter for screening mammogram for malignant neoplasm of breast Procedures KAYLEEN SCREENING BILATERAL DIGITAL W CAD W Ravi Watters MD [address] [facility] [address] [place] [address] Phone: tel: fax: Referral ID Status Reason Start Date Expiration Date Visits Re quested Visits Authorized [id number] Closed 11/13/2021 1 1 Reason for Visit * Radiology Services (Routine) - Closed Specialty Diagnoses / Procedures Referred By Yanni weaver Referred To Contact Radiology Diagnoses Encounter for screening mammogram for malignant neoplasm of breast Procedures KAYLEEN SCREENING BILATERAL DIGITAL W CAD W Ravi Watters MD [address] [facility] [address] [place] [id number] Phone: tel: fax: Referral ID Status Reason Start Date Expiration Date Visits Re quested Visits Authorized [id number] Closed 11/13/2021 1 1 Encounter Details Date Type Department Care Team (Latest Contact Info) Description 12/19/2021 5:45 PM CDT - 12/19/2021 11:59 PM CDT Hospital Encounter [facility] Mammography [address] [place] [address] Ravi Krishna MD [address] [facility] [address] [place] [address] Discharge Disposition: Discharged to home or Selfcare [...] Master's degree (e.g., MA, MS, Marcellus, MEd, BOTTOM TURNER, JOEY) 05/07/2020 Sexually Active Control Partners Comments [...] PM CDT documented as of this encounter Medications at [...] route 2 times daily. 1 Bottle 11/09/2018 FLUoxetine (PROzac) 20 MG CapsuleIndication s:ARTHUR (generalized anxiety disorder),Depress ion, unspecified depression type Take 1 capsule by mouth every day. 90 Capsule 1 10/25/2021 3 propranolol (INDERAL) 10 MG TabletIndications :ARTHUR (generalized anxiety disorder) TAKE 1 TABLET BY MOUTH THREE TIMES A DAY NEEDED FOR ANXIETY 90 Tablet 12/09/2021 3 Semaglutide-Weigh t Management (Wegovy) 0.25 MG/0.5ML Solution Auto-injectorIndi cations:Obesity (BMI 35.0-39.9 without comorbidity) ?? Initial dosage and titration, 0.25 mg subQ once weekly for weeks 1 through 4; then 0.5 mg once weekly for weeks 5 through 8; then 1 mg once weekly for weeks 9 through 12; then 1.7 mg once weekly for weeks 13 through 16; maintenance, 2.4 mg once weekly thereafter. If titration is not tolerated due 20 mL 1 10/24/2021 2 documented as of this encounter Plan of Treatment Upcoming Encounters Date Type Department Care Team (Late st Contact Info) Description 04/14/2024 7:00 AM FREIGHT CAR CLEANER DELTA SYSTEM [facility] 1 [place] [address] Ravi Krishna MD [address] [address] 07/08/2024 9:30 AM CDT Office Visit [facility] - Pulmonology & Sleep Medicine [facility] [address] [place] [address] Abby Dinh APRN, ASSIGNMENT DESK EDITOR #[address] [address] documented as of this encounter Goals Goal Patient Goal Type Associated Problems Recent Progress Patient-Stated? Author Grief Behavioral Health On track( 021 3:59 PM CDT) Mary Jane Morris LCSW Note: Brigid will cope with grief more effectively Goal Reviewed with: patient Readiness to change: Ready to change Department associated with goal: [facility] Steps to achieve goal: [...] BILATERAL DIGITAL W CAD W SANDY Routine 12/19/2021 6:09 PM CDT Encounter for screening mammogram for malignant neoplasm of breast documented in this encounter Results * KAYLEEN SCREENING BILATERAL DIGITAL W CAD W SANDY (12/19/2021 6:09 PM CDT) Anatomical Region Laterality Modality breast Bilateral Mammography 12/19/2021 5:54 PM CDT Narrative 12/27/2021 12:52 PM CDT - KAYLEEN SCREENING BILATERAL DIGITAL W CAD W SANDY BILATERAL DIGITAL SCREENING MAMMOGRAM 3D/2D WITH CAD WITH MEDIOLATERAL OBLIQUE CRANIOCAUDAL: 12/19/2021 The study was acquired using digital technology [...] COMPARISONS: Comparison is made to exams dated: ??11/12/2018 [facility], 10/12/2020, and 10/07/2019 [facility]. ?? BREAST TISSUE:There are scattered fibroglandular densities [...] by: Alexandra De La Torre M.D. ? ll/penrad:12/26/2021 16:45:23 ?? Window Shade Estimator(s): Lydia ?? RT Holden(R)(M), [facility] sent: Normal Exam ?? Reading location: HOYT BI-RADS: 1 Negative Procedure Note Alexandra De La Torre MD - 12/27/2021 - KAYLEEN SCREENING BILATERAL DIGITAL W CAD W SANDY BILATERAL DIGITAL SCREENING MAMMOGRAM 3D/2D WITH CAD WITH MEDIOLATERAL OBLIQUE CRANIOCAUDAL: 12/19/2021 The study was acquired using digital technology and interpreted from soft copy. Current study was also evaluated with VidableD version 7.2. 2D digital mammographic views, as well as 3D digital tomosynthesis were performed in the CC and MLO projections. CLINICAL: Routine screening. Patient has no complaints. No personal history of cancer. Family history of breast cancer unknown. COMPARISONS: Comparison is made to exams dated: 11/12/2018 [facility], 10/12/2020, and 10/07/2019 [facility]. BREAST TISSUE:There are scattered fibroglandular densities in [...] signed by: Alexandra De La Torre M.D. ll/penrad:12/26/2021 16:45:23 Window Shade Estimator(s): DAIANA Kuhn)(M), [facility] sent: Normal Exam Reading location: HOYT BI-RADS: 1 Negative us Ravi Krishna MD IMG MAMMO ORDERABLES Final R esult documented in this encounter Visit Diagnoses Diagnosis Encounter for screening mammogram for malignant neoplasm of breast Other screening mammogram documented in this encounter Additional Health Concerns Assessment Noted Time PHQ-9 Depression Total Score: 9 06/04/19 21 9:00 AM FREIGHT CAR CLEANER DELTA SYSTEM documented as of this encounter Care Teams Washing Machine Repairer Relationship Specialty Start Date End Date Melonie Ochoa MD PCP - General Family Medicine 11/12/18 02/16/23 Lucero Hood MD Obstetrics & Gynecology 03/20/16 documented as of this encounter
--- OUTSIDE RECORDS SUMMARY | 2024-04-11 00:48 | XMS_ITS | Encounter Summary ---
Author Organization [facility] Address [address] [place] [address] Phone Care Team Providers Care International Flight Attendant Name Role Phone Lucero Hood MD Unavailable Unavail able Melonie Ochoa MD Primary Care Provider Reason for Visit * Reason Comments Medication Refill Encounter Details Date Type Department Care Team (Late st Contact Info) Description 10/07/2021 Refill [facility] - Primary Care - [place] [address] [place] [address] Melonie Ochoa MD [address] [place] [address] Medication Refill Social History Tobacco [...] Master's degree (e.g., MA, MS, Marcellus, MEd, DIRECTOR ONCOLOGY, JOEY) 05/07/2020 Sexually Active Control Partners Comments Yes Male Comments No Sex and Gender Information Value Date Recorded Sex Assigned at Not on file Legal Sex Female 7:07 PM CDT Gender Identity Not on file Sexual Orientation Not on file COVID-19 Exposure Response Date Recorded In the last 10 days, have andreas u been in contact with someone who was confirmed or suspected to have Coronavirus/COVID-19? No / Unsure 09/17/2021 8:50 AM CDT documented as of this encounter Miscellaneous Notes * Telephone Encounter - Eugenie Thomas RN - 10/07/2021 9:50 AM CDT Medication approved and signed per standing order protocol. documented in this encounter Plan of Treatment Upcoming Encounters Date Type Department Care Team (Late st Contact Info) Description 04/14/2024 7:00 AM SUGGESTION CLERK Appointment [facility] Mammography 1 [place] [address] Ravi Krishna MD [address] [facility] [address] [address] 07/08/2024 9:30 AM CDT Office Visit [facility] - Pulmonology & Sleep Medicine - [place] [address] [place] [address] Abby Dinh APRN, COGNOS ANALYST #2 [facility] [address] [place] [address] documented as of this encounter Goals Goal Patient Goal Type Associated Problems Recent Progress Patient-Stated? Author Grief Behavioral Health On track( 021 3:59 PM CDT) Mary Jane Morris, KRISTA Note: Brigid will cope with grief more effectively Goal Reviewed with: patient Readiness to change: Ready to change Department associated with goal: [facility] Steps to achieve [...] as of this encounter Visit Diagnoses Diagnosis ARTHRU (generalized anxiety disorder) Generalized anxiety disorder documented in this encounter Additional Health Concerns Assessment Noted Time PHQ-9 Depression Total Score: 9 06/04/19 21 9:00 AM SUGGESTION CLERK documented as of this encounter Care Teams International Flight Attendant Relationship Specialty Start Date End Date Melonie Ochoa MD PCP - General Family Medicine 11/12/18 02/16/23 Lucero Hood MD Obstetrics & Gynecology 03/20/16 documented as of this encounter
--- OUTSIDE RECORDS SUMMARY | 2024-04-11 00:48 | XMS_ITS | Encounter Summary ---
Author Organization [facility] Address [address] [place] [address] Phone Care Team Providers Care Choker Hooker Name Role Phone Lucero Hood MD, Priya MD Primary Care Provider [phone] Reason for Visit * Consult, Test & Initiate Treatment (Less Than 4 Weeks) - Closed Specialty Diagnoses / Procedures Referred By Yanni weaver Referred To Contact Sleep Center Diagnoses Sleep apnea, unspecified type Abby Dinh APRN, AMANDEEP Phone: tel: fax: [facility] Sleep Lab 1 [place] [address] Phone: tel: fax: Referral ID Status Reason Start Date Expiration Date Visits Re quested Visits Authorized [id number] Closed 08/29/2021 1 1 Encounter Details Date Type Department Care Team (Latest Contact Info) Description 09/16/2021 1:30 PM CDT Outpatient Clinic Visit [facility] Sleep Lab 1 [place] [address] Abby Dinh APRN, AMANDEEP [address] [id number] Sleep apnea, unspecified type Discharge Disposition: Discharged to home or Selfcare [...] Master's degree (e.g., MA, MS, Marcellus, MEd, MEDIA SALES REPRESENTATIVE, JOEY) 05/07/2020 Sexually Active Control Partners Comments [...] AM CDT documented as of this encounter Procedure Notes * Burak Le MD - 09/16/2021 1:30 PM CDT Images from the original note were not included. HOME SLEEP APNEA STUDY Airam Munoz 09/16/2021 BRIEF HISTORY: Ms. Airam Munoz is a 41 year old female (1980), referred for an Unattended Home Sleep Apnea Test (HSAT) to screen for obstructive sleep apnea syndrome. She has a history significant for witnessed apnea, snoring, daytime fatigue, GERD, teeth grinding and morning headaches. Her neck size is13.0 inches and her [place] score was reported as 18. Her current height is 66.0 in., weight is 228.0 lbs. and has a BMI of 36.8 lb/in2. She was referred by Abby Dinh SUMMARY: ?? Evidence of moderate obstructive sleep apnea (G47.33) with a RDI of 27.1 events per hour associated with lowest oxygen desaturation of 82%. ?? SaO2 levels below 90% for 1.95% of total recording time (monitoring time). ?? Supine RDI=15.2/hr, non-supine RDI=27.83/hr ?? Pulse averaged 69.9 bpm. RECOMMENDATIONS: ??? Options of intervention may include a trial with auto titrating positive airway pressure (APAP)device or in lab PAP titration. ??? If patient is unable or unwilling to try PAP therapy a trial with a dental appliance may be considered. ??? Sleep hygiene and weight optimization. ??? Due to the lack of EEG monitoring in Home Sleep Apnea Testing, these results may underestimate the severity of obstructive sleep apnea. ??? Given limitation of home sleep testing, consider further evaluation with full polysomnography and daytime sleepiness testing if clinically indicated. ??? A negative home sleep test does not rule out the presence of sleep apnea or any other sleep disorder. METHODOLOGY: Unattended Home Sleep Apnea Test: Nocturnal HSAT was performed on 09/16/2021 using a Type III device with recording parameters which include thoracic respiratory effort (single RIP belt), oxygen saturation, snoring and pulse rate (pulse oximeter), body position, and nasal/oral airflow and snoring (pressure transducer). Based on the review of the recorded signals the study quality is adequate for interpretation. Data were interpreted following standard AASM (rule 1B) criteria utilizing the 30% reduction in airflow resulting in at least a 4% desaturation definition for hypopnea. RESPIRATORY EVENTS SUMMARY Total recording time was 491.2 minutes. Respiratory monitoring revealed 105 obstructive apneas, 0 mixed apneas, 0 central apneas and 117 partial upper airway obstructions (obstructive hypopneas). Resulting in a respiratory disturbance Index (RDI=REGINO) of 27.1 abnormal breathing events per hour of rec ording time. The Patient was supine for 27.7 minutes of the recording with a supine RDI of 15.2; non-supine for 463.50 minutes of the recording with a non- supine RDI of 27.83. Recording noted steady snores. SaO2 SUMMARY Mean SaO2= 95% Lowest SaO2=82% 90-100%= 96.97% 80-89% = 1.95% 70-79% = 0.00% 60-69% =0.00% 50-59% =0.00% <50% =0.0% Cardiac recording showed an average heart rate of 69.9 beats per minute, a max heart rate of 109 beats per minute and a minimum heart rate of 57 beats per minute. PATIENT ASSESSMENT: on the post sleep morning questionnaire, the patient felt her sleep was somewhat similar to her usual night sleep at home. Thank you for this referral and please call with any questions or concerns. Sincerely, Burak Le Associated attestation - Zay Crowley MD - 09/24/2021 4:57 PM CDT I have read the Sleep Report for this patient and attest that I am in agreement with it. documented in this encounter Plan of Treatment Upcoming Encounters Date Type Department Care Team (Late st Contact Info) Description 04/14/2024 7:00 AM TOWER DRAGLINE OPERATOR Appointment [facility] Mammography 1 [place] [address] Ravi Krishna MD [address] [address] 07/08/2024 9:30 AM CDT Office Visit [facility] - Pulmonology & Sleep Medicine - [place] [address] [place] [address] Abby Dinh APRN, CHUTE MAN #[address] [address] documented as of this encounter Goals Goal Patient Goal Type Associated Problems Recent Progress Patient-Stated? Author Grief Behavioral Health On track( 021 3:59 PM CDT) Mary Jane Morris LCSW Note: Brigid will cope with grief more effectively Goal Reviewed with: patient Readiness to change: Ready to change Department associated with goal: [facility] Steps to [...] Procedure Name Priority Date/Time Associated Diagnosis Comments HOME SLEEP STUDY UNATTENDED TYPE III Routine 09/17/2021 Sleep apnea, unspecified type documented in this encounter Results * HOME SLEEP STUDY UNATTENDED TYPE III (09/17/2021) Abby Dinh APRN, [facility] ORDERABL ES Final Result documented in this encounter Visit Diagnoses Diagnosis Sleep apnea, unspecified type documented in this encounter Additional Health Concerns Assessment Noted Time PHQ-9 Depression Total Score: 9 06/04/19 21 9:00 AM TOWER DRAGLINE OPERATOR documented as of this encounter Care Teams Choker Hooker Relationship Specialty Start Date End Date Melonie Ochoa MD PCP - General Family Medicine 11/12/18 02/16/23 Lucero Hood MD Obstetrics & Gynecology 03/20/16 documented as of this encounter
--- OUTSIDE RECORDS SUMMARY | 2024-04-11 00:48 | XMS_ITS | Encounter Summary ---
Author Organization [facility] Address [address] [place] [address] Phone Care Team Providers Care Consumer Marketing Manager Name Role Phone Lucero Hood MD [facility] Melonie Erwin MD Primary Care Provider Reason for Referral * Consult, Test & Initiate Treatment (Less Than 4 Weeks) - Denied Specialty Diagnoses / Procedures Referred By Yanni weaver Referred To Contact Sleep Center Diagnoses Suspected sleep apnea Obesity (BMI 35.0-39.9 without comorbidity) Snoring Abby Dinh APRN, CNP Phone: tel: fax: [facility] Sleep Lab [address] [place] [address] Phone: tel: fax: Referral ID Status Reason Start Date Expiration Date Visits Re quested Visits Authorized [id number] Denied 08/06/2021 1 1 Scheduling Instructions Airam is being referred for sleep apnea. Please contact patient for scheduling questions or concerns. Reason for Visit * Reason Comments New Patient Referral from Ozzie cuenca for ROEBRTO * Consult, Test & Initiate Treatment (Routine) - Closed Specialty Diagnoses / Procedures Referred By Yanni weaver Referred To Contact Pulmonology Diagnoses Suspected sleep apnea Kaity Blue APRN, CNP [address] [place] [address] Phone: tel: fax: [facility] Pulmonology & Sleep Medicine [facility] [address] [place] [address] Phone: tel: fax: Referral ID Status Reason Start Date Expiration Date Visits Re quested Visits Authorized [id number] Closed 07/16/2021 1 1 Encounter Details Date Type Department Care Team (Late st Contact Info) Description 08/06/2021 9:30 AM CDT Office Visit [facility] Pulmonology & Sleep Medicine [facility] [address] [place] [address] Abby Dinh APRN, AUDIO DIRECTOR #[address] [address] Suspected sleep apnea (Primary Dx); Obesity (BMI 35.0-39.9 without comorbidity); Snoring Discharge Disposition: Discharged to home or Selfcare [...] Master's degree (e.g., MA, MS, Marcellus, MEd, JOURNALISM PROFESSOR, JOEY) 05/07/2020 Sexually Active Control Partners Comments [...] Sign Reading Time Taken Comments Blood Pressure 112/74 08/06/2021 9:32 AM CDT Pulse 66 08/06/2021 9:32 AM CDT Temperature 36.3 ??C (97.3 ??F) 08/06/2021 9:32 AM CD T Respiratory Rate 16 08/06/2021 9:32 AM CDT Oxygen Saturation 98% 08/06/2021 9:32 AM CDT Inhaled Oxygen Concentration - - Weight 103.6 kg (228 lb 6.4 oz) 08/06/2021 9:32 AM CDT Height 167.6 cm (5' 6 ) 08/06/2021 9:32 AM CDT Body Mass Index 36.86 08/06/2021 9:32 AM CDT documented in this encounter Patient Instructions * Patient Instructions* Abby Dinh APRN, AMANDEEP - 08/06/2021 9:30 AM CDT Images from the original note were not included. SLEEP HYGIENE Plan a regular bedtime and wakeup schedule. Do quiet hobbies and activities in the evening. Exercise in the mornings or afternoons only. Avoid daytime napping. Avoid hamk-qdk-bxghhie medications such as allergy medicines. Avoid tobacco [...] guided imagery, meditation, breathing exercises, or yoga. 5 Steps for Eating Healthier Changing the [...] is about the size of your fist. [employer] last reviewed this educational content on 10/12/2019 ?? [id number] The [employer]. All rights reserved. This information is not intended as a substitute for professional medical care. Always follow your healthcare professional's instructions. documented in this encounter Progress Notes * Abby Dinh APRN, CNP - 08/06/2021 9:30 AM CDT Chief Complaint: Chief Complaint Patient presents with ??? New Patient Referral from Kaity for ROBERTO Subjective: Ms. Airam Munoz is a 41 y.o. female here today for above. Patient reports has witnessed apneas during sleep. She reports that she snores loudly and wakes up feeling un-refreshed. Symptoms have been occurring sine college. States she has a lot of daytime fatigue. Tends to hit a wall around 4 p.m and has to nap. Has a hard time staying awake while driving, will have to turn up her AC to keep herself awake. Reports periodic GERD that she treats with OTC medication. Does have headaches upon awakening daily. Did wear a mouth guard for a while recommended by her Dentist due to grinding her teeth. Was still snoring with mouth guard. ESS=10 Stop Bang=3 BMI=36.86kg Neck Size=15 ROS: Review of Systems Constitutional: Positive for fatigue (daytime sleepiness). HENT: Negative. Eyes: Negative. Respiratory: Positive for apnea (witnessed by ). Cardiovascular: Negative. Gastrointestinal: Negative. Endocrine: Negative. Genitourinary: Negative. Musculoskeletal: Negative. Skin: Negative. Allergic/Immunologic: Negative. Neurological: Positive for headaches (upon awakening). Hematological: Negative. Psychiatric/Behavioral: Positive for sleep disturbance (loud snoring). VITAL SIGNS: BP Readings from Last 3 Encounters: 08/06/21 112/74 07/25/21 120/78 01/11/21 122/74 Wt Readings from Last 3 Encounters: 08/06/21 228 lb 6.4 oz (103.6 kg) 07/25/21 228 lb (103.4 kg) 01/11/21 218 lb (98.9 kg) Vitals: 08/06/21 0932 BP: 112/74 Pulse: 66 Resp: 16 Temp: 97.3 ??F (36.3 ??C) SpO2: 98% Weight: 228 lb 6.4 oz (103.6 kg) Height: 5' 6 (1.676 m) Body mass index is 36.86 kg/m??. PHYSICAL EXAM: Physical Exam Vitals reviewed. Constitutional: Appearance: She is well-developed. She is obese. HENT: Mouth/Throat: Tonsils: 1+ on the right. 1+ on the left. Comments: Mallampati Class III Eyes: Conjunctiva/sclera: Conjunctivae normal. Pupils: Pupils are [...] content normal. Judgment: Judgment normal. Labs/Studies Reviewed: Assessment/Plan: Diagnoses and all orders for this visit: Suspected sleep apnea - PULMONARY REFERRAL - SLEEP STUDY REFERRAL; Future Obesity (BMI 35.0-39.9 without comorbidity) - SLEEP STUDY REFERRAL; Future Snoring - SLEEP STUDY REFERRAL; Future NO NEW PULM REFERRAL PLACED AT THIS VISIT Will have patient follow up with in lab sleep study to evaluate for ROBERTO. Educated on the importance of healthy diet and daily physical activity. Discussed sleep hygiene as stated below. Plan a regular bedtime and wakeup schedule. Do quiet hobbies and activities in the evening. Exercise in the mornings or afternoons only. Avoid daytime napping. Avoid angf-pow-usgwssj medications such as allergy medicines. Avoid tobacco [...] guided imagery, meditation, breathing exercises, or yoga. FOLLOWUP: Follow-up Information Return in about 3 months (around 11/05/2021). Abby Dinh APRN, CNP Past medical, surgical, social and family history has been reviewed and updated as necessary. Medications and allergies has been reviewed and updated. I discussed all new medications and potential side effects or risks associated with them. Patient is to contact our office with any concerns. Patient instructions and educational materials were given to the patient. Patient (or patient textiles sales representative) demonstrates verbal understanding of instructions given. [...] st Contact Info) Description 04/14/2024 7:00 AM TRACK REPAIR LABORER Appointment [facility] Mammography [address] [place] [address] Ravi Krishna MD [address] [facility] [address] [facility] [address] [place] [address] 07/08/2024 9:30 AM CDT Office Visit [facility] Medical [facility] - Pulmonology & Sleep Medicine [facility] [address] [place] [address] Abby Dinh APRN, AUDIO DIRECTOR #2 [facility] [address] [place] [address] Scheduled Referrals Name Type Priority Associated Diagnoses Order Schedule SLEEP STUDY REFERRAL Outpatient Referral Less Than 4 weeks Suspected sleep apnea Obesity (BMI 35.0-39.9 without comorbidity) Snoring Expected: 08/06/2021, Expires: 08/06/2022 documented as of this encounter Goals Goal Patient Goal Type Associated Problems Recent Progress Patient-Stated? Author Grief Behavioral Health On track( 021 3:59 PM CDT) Mary Jane Morris, MUSIC MIXER Note: Brigid will cope with grief more effectively Goal Reviewed with: patient Readiness to change: Ready to change Department associated with goal: [facility] Steps to achieve goal: [...] as of this encounter Visit Diagnoses Diagnosis Suspected sleep apnea- Primary Obesity (BMI 35.0-39.9 without comorbidity) Obesity, unspecified Snoring Other dyspnea and respiratory abnormality documented in this encounter Additional Health Concerns Assessment Noted Time PHQ-9 Depression Total Score: 9 06/04/19 21 9:00 AM TRACK REPAIR LABORER documented as of this encounter Care Teams Consumer Marketing Manager Relationship Specialty Start Date End Date Melonie Ochoa MD PCP - General Family Medicine 11/12/18 02/16/23 Lucero Hood MD Obstetrics & Gynecology 03/20/16 documented as of this encounter
--- OUTSIDE RECORDS SUMMARY | 2024-04-11 00:48 | XMS_ITS | Encounter Summary ---
Author Organization [facility] Address [address] [place] [address] Phone Care Team Providers Care Promotion Writer Name Role Phone Lucero Hood MD Unavailable Unavail able Melonie Ochoa MD Primary Care Provider Reason for Visit * Reason Comments Medication Refill Encounter Details Date Type Department Care Team (Late st Contact Info) Description 08/15/2021 Refill [facility] - Primary Care - [place] [address] [place] [address] Melonie Ochoa MD [address] [place] [address] Medication Refill Social History Tobacco [...] Master's degree (e.g., MA, MS, Marcellus, MEd, DRIVE MAN, JOEY) 05/07/2020 Sexually Active Control Partners Comments [...] Telephone Encounter - Eugenie Thomas RN - 08/15/2021 8:49 AM CDT Medication approved and signed per standing order protocol. documented in this encounter Plan of Treatment Upcoming Encounters Date Type Department Care Team (Late st Contact Info) Description 04/14/2024 7:00 AM PRINCIPAL SYSTEMS ENGINEER Appointment [facility] Mammography [address] [place] [address] Ravi Krishna MD [address] [facility] [address] [address] 07/08/2024 9:30 AM CDT Office Visit [facility] - Pulmonology & Sleep Medicine - [place] [address] [place] [address] Abby Dinh APRN, SALESPERSON SHEET MUSIC #2 [facility] [address] [place] [address] documented as of this encounter Goals Goal Patient Goal Type Associated Problems Recent Progress Patient-Stated? Author Grief Behavioral Health On track( 021 3:59 PM CDT) Mary Jane Morris, KRISTA Note: Brigid will cope with grief more effectively Goal Reviewed with: patient Readiness to change: Ready to change Department associated with goal: [facility] Steps to achieve [...] Total Score: 9 06/04/19 21 9:00 AM PRINCIPAL SYSTEMS ENGINEER documented as of this encounter Care Teams Promotion Writer Relationship Specialty Start Date End Date Melonie Ochoa MD PCP - General Family Medicine 11/12/18 02/16/23 Lucero Hood MD Obstetrics & Gynecology 03/20/16 documented as of this encounter
--- OUTSIDE RECORDS SUMMARY | 2024-04-11 00:48 | XMS_ITS | Encounter Summary ---
Author Organization [facility] Address [address] [place] [address] Phone Care Team Providers Care Cattle Examiner Name Role Phone Lucero Hood MD Unavailable Unavail able Melonie Ochoa MD Primary Care Provider [phone] Reason for Referral * Radiology Services (Routine) - Closed Specialty Diagnoses / Procedures Referred By Contac t Referred To Contact Radiology Diagnoses Encounter for screening mammogram for malignant neoplasm of breast Procedures KAYLEEN SCREENING BILATERAL DIGITAL W CAD W SANDY Ravi Krishna MD [address] [facility] [address] [address] Phone: tel: fax: Referral ID Status Reason Start Date Expiration Date Visits Re quested Visits Authorized [id number] Closed 11/13/2021 1 1 Encounter Details Date Type Department Care Team (Latest Contact Info) Description 11/13/2021 Transcribe Orders [facility] Central Scheduling [address] [place] [address] Ravi Krishna MD [address] [facility] [address] [place] [address] Encounter for screening mammogram for malignant neoplasm [...] Master's degree (e.g., MA, MS, Marcellus, MEd, HADOOP ARCHITECT, JOEY) 05/07/2020 Sexually Active Control Partners Comments [...] st Contact Info) Description 04/14/2024 7:00 AM SUPERVISOR KEYMODULE ASSEMBLY Appointment [facility] Mammography 1 [place] [address] Ravi Krishna MD [address] [address] 07/08/2024 9:30 AM CDT Office Visit [facility] - Pulmonology & Sleep Medicine [facility] [address]2 [place] [address] Abby Dinh APRN, SENIOR MICROSOFT CONSULTANT #[address] [address] documented as of this encounter Goals Goal Patient Goal Type Associated Problems Recent Progress Patient-Stated? Author Grief Behavioral Health On track( 021 3:59 PM CDT) Mary Jane Morris LCSW Note: Brigid will cope with grief more effectively Goal Reviewed with: patient Readiness to change: Ready to change Department associated with goal: [facility] Steps to achieve [...] documented as of this encounter Results * KAYLEEN SCREENING BILATERAL [...] copy. Current study was also evaluated with MyMed[employer]com version 7.2. 2D digital mammographic views, as well as 3D digital tomosynthesis were performed in the CC and MLO projections. ?? CLINICAL: Routine screening. Patient has no complaints. No personal history of cancer. Family history of breast cancer unknown. ?? COMPARISONS: Comparison is made to exams dated: ??11/12/2018 [facility], 10/12/2020, and 10/07/2019 [facility]. ?? BREAST TISSUE:There are scattered fibroglandular [...] by: Alexandra De La Torre M.D. ? ros/penrad:12/26/2021 16:45:23 ?? Clinical Research Physician(s): Lydia ?? RT Holden(Reanna)(M), [facility] letter sent: Normal Exam ?? Reading location: HOTY BI-RADS: 1 Negative Procedure Note Alexandra De [...] Comparison is made to exams dated: 11/12/2018 [facility], 10/12/2020, and 10/07/2019 [facility]. BREAST TISSUE:There are scattered fibroglandular densities [...] next screening exam. Electronically signed by: Alexandra sommer/era:12/26/2021 16:45:23 Clinical Research Physician(s): RT Bam(R)(M), [facility] letter sent: Normal Exam Reading location: HOYT BI-RADS: 1 Negative us Ravi Krishna MD IMG MAMMO ORDERABLES Final R esult documented in this encounter Visit Diagnoses Diagnosis Encounter for screening mammogram for malignant neoplasm of breast- Primary Other screening mammogram Encounter for screening mammogram for malignant neoplasm of breast Other screening mammogram documented in this encounter Additional Health Concerns Assessment Noted Time PHQ-9 Depression Total Score: 9 06/04/19 21 9:00 AM SUPERVISOR KEYMODULE ASSEMBLY documented as of this encounter Care Teams Cattle Examiner Relationship Specialty Start Date End Date Melonie Ochoa MD PCP - General Family Medicine 11/12/18 02/16/23 Lucero Hood MD Obstetrics & Gynecology 03/20/16 documented as of this encounter
--- OUTSIDE RECORDS SUMMARY | 2024-04-11 00:48 | XMS_ITS | Encounter Summary ---
Author Organization [facility] Address [address] [place] [address] Phone Care Team Providers Care Traffic Assistant Name Role Phone Lucero Hood MD Unavailable Unavail able Melonie Ochoa MD Primary Care Provider [phone] Encounter Details Date Type Department Care Team (Latest Contact Info) Description 12/24/2021 2:55 PM CDT - 12/24/2021 11:59 PM CDT Hospital Encounter [facility] Radiology Resources [address] [place] [address] Discharge Disposition: Discharged to home or Selfcare [...] Master's degree (e.g., MA, MS, Marcellus, MEd, MEDIC TECHNICIAN, JOEY) 05/07/2020 Sexually Active Control Partners [...] st Contact Info) Description 04/14/2024 7:00 AM VIDEO EDITING INTERN Appointment [facility] Mammography [address] [place] [address] Ravi Krishna MD [address] [facility] [address] [place] [address] 07/08/2024 9:30 AM CDT Office Visit [facility] - Pulmonology & Sleep Medicine - [place] [address] [place] [address] Abby Dinh APRN, EMBLEM CUTTER #2 [facility] [address] [place] [address] documented as of this encounter Goals Goal Patient Goal Type Associated Problems Recent Progress Patient-Stated? Author Grief Behavioral Health On track( 021 3:59 PM CDT) Mary Jane Morris, KRISTA Note: Brigid will cope with grief more effectively Goal Reviewed with: patient Readiness to change: Ready to change Department associated with goal: [facility] Steps to [...] Name Priority Date/Time Associated Diagnosis Comments KAYLEEN REFERENCE IMAGES FOR IMAGE IMPORT Routine 12/24/2021 2:48 PM CDT KAYLEEN REFERENCE IMAGES FOR IMAGE IMPORT Routine 12/24/2021 2:46 PM CDT documented in this encounter Results * KAYLEEN REFERENCE IMAGES FOR IMAGE IMPORT (12/24/2021 2:48 PM CDT) Only the most recent of2 resultswithin the time period is included. us Not On File Provider IMG MAMMO ORDERABLES Final Result documented in this encounter Visit Diagnoses Not on filedocumented in this encounter Additional Health Concerns Assessment Noted Time PHQ-9 Depression Total Score: 9 06/04/19 21 9:00 AM VIDEO EDITING INTERN documented as of this encounter Care Teams Traffic Assistant Relationship Specialty Start Date End Date Melonie Ochoa MD PCP - General Family Medicine 11/12/18 02/16/23 Lucero Hood MD Obstetrics & Gynecology 03/20/16 documented as of this encounter
--- OUTSIDE RECORDS SUMMARY | 2024-04-11 00:48 | XMS_ITS | Encounter Summary ---
Author Organization [facility] Care Team Providers Care Manager Multicultural Name Role Phone Lucero Hood MD Unavailable Unavail able Melonie Ochoa MD Primary Care Provider [phone] Abby Dinh APRN, ADULT CROSSING GUARD Unavailable [phone] Encounter Details Date Type Department Care Team (Latest Contact Info) Description 06/28/2022 Travel Social History Tobacco Use Types Packs/Day [...] Master's degree (e.g., MA, MS, Marcellus, MEd, TOOLS PROGRAMMER, JOEY) 05/07/2020 Sexually Active Control Partners Comments [...] suspected to have Coronavirus/COVID-19? No / Unsure 06/28/2022 8:08 AM CDT documented as of this encounter Plan of Treatment Upcoming Encounters Date Type Department Care Team (Late st Contact Info) Description 04/14/2024 7:00 AM RETAIL TEAM MEMBER Appointment [facility] Mammography [address] [place] [address] Ravi Krishna MD [address] [facility] [address] [facility] [address] [place] [address] 07/08/2024 9:30 AM CDT Office Visit [facility] - Pulmonology & Sleep Medicine - [place] [address] [place] [address] Abby Dinh APRN, ADULT CROSSING GUARD #2 [facility] [address] [place] [address] documented as of this encounter Goals Goal Patient Goal Type Associated Problems Recent Progress Patient-Stated? Author Grief Behavioral Health On track( 021 3:59 PM CDT) Mary Jane Morris LCSW Note: Brigid will cope with grief more effectively Goal Reviewed with: patient Readiness to change: Ready to change Department associated with goal: [facility] Steps to [...] Total Score: 9 06/04/19 21 9:00 AM RETAIL TEAM MEMBER documented as of this encounter Care Teams Manager Multicultural Relationship Specialty Start Date End Date Melonie Ochoa MD PCP - General Family Medicine 11/12/18 02/16/23 Lucero Hood MD Obstetrics & Gynecology 03/20/16 Abby Dinh APRN, ADULT CROSSING GUARD #[address] [address] Nurse Practitioner Advanced Practice Nurse 02/21/22 documented as of this encounter
--- OUTSIDE RECORDS SUMMARY | 2024-04-11 00:48 | XMS_ITS | Encounter Summary ---
Author Organization [facility] Address [address] [place] [address] Phone Care Team Providers Care Glazing Machine Operator Name Role Phone Lucero Hood MD Unavailable Unavail able Melonie Ochoa MD Primary Care Provider [phone] Reason for Visit * Reason Comments Medication Refill Encounter Details Date Type Department Care Team (Late st Contact Info) Description 11/03/2021 Refill [facility] - Primary Care - [place] [address] [place] [address] Melonie Ochoa MD [address] [place] [address] Medication Refill Social History Tobacco [...] Master's degree (e.g., MA, MS, Marcellus, MEd, BOTTLING ATTENDANT, JOEY) 05/07/2020 Sexually Active Control Partners [...] Encounter - Eugenie Thomas RN - 11/04/2021 9:45 AM CDT Medication approved and signed per standing order protocol. documented in this encounter Plan of Treatment Upcoming Encounters Date Type Department Care Team (Late st Contact Info) Description 04/14/2024 7:00 AM STUDENT WORKER Appointment [facility] Mammography 1 [place] [address] Ravi Krishna MD [address] [facility] [address] [address] 07/08/2024 9:30 AM CDT Office Visit [facility] - Pulmonology & Sleep Medicine - [place] #[address] [place] [address] Abby Dinh APRN, COURT SUPERVISOR #2 [facility] [address] [place] [address] documented as of this encounter Goals Goal Patient Goal Type Associated Problems Recent Progress Patient-Stated? Author Grief Behavioral Health On track( 021 3:59 PM CDT) No Mary Jane Norman LCSW Note: Brigid will cope with grief more effectively Goal Reviewed with: patient Readiness to change: Ready to change Department associated with goal: [facility] Steps to achieve goal: [...] Total Score: 9 06/04/19 21 9:00 AM STUDENT WORKER documented as of this encounter Care Teams Glazing Machine Operator Relationship Specialty Start Date End Date Melonie Ochoa MD PCP - General Family Medicine 11/12/18 02/16/23 Lucero Hood MD Obstetrics & Gynecology 03/20/16 documented as of this encounter
--- OUTSIDE RECORDS SUMMARY | 2024-04-11 00:48 | XMS_ITS | Encounter Summary ---
Author Organization [facility] Care Team Providers Care Drop Hammer Setter Up Name Role Phone Lucero Hood MD Unavailable Unavail able Melonie Ochoa MD Primary Care Provider [phone] Abby Dinh APRN, DEGREASER Unavailable [phone] Encounter Details Date Type Department Care Team (Latest Contact Info) Description 03/03/2022 Travel Social History Tobacco Use Types Packs/Day [...] Master's degree (e.g., MA, MS, Marcellus, MEd, SOFT SUGAR CUTTER, JOEY) 05/07/2020 Sexually Active Control Partners Comments [...] suspected to have Coronavirus/COVID-19? No / Unsure 03/03/2022 7:45 PM VOCATIONAL CASE MANAGER documented as of this encounter Plan of Treatment Upcoming Encounters Date Type Department Care Team (Late st Contact Info) Description 04/14/2024 7:00 AM VOCATIONAL CASE MANAGER Appointment [facility] Mammography 1 [place] [address] Ravi Krishna MD [address] [facility] [address] [facility] [address] [place] [address] 07/08/2024 9:30 AM CDT [facility] - [place] #2 [place] [address] Abby Dinh APRN, DEGREASER #2 [facility] [address] [place] [address] documented as of this encounter Goals Goal Patient Goal Type Associated Problems Recent Progress Patient-Stated? Author Grief Behavioral Health On track( 021 3:59 PM CDT) Mary Jane Morris LCSW Note: Brigid will cope with grief more effectively Goal Reviewed with: patient Readiness to change: Ready to change Department associated with goal: [facility] Steps to achieve goal: [...] Total Score: 9 06/04/19 21 9:00 AM VOCATIONAL CASE MANAGER documented as of this encounter Care Teams Drop Hammer Setter Up Relationship Specialty Start Date End Date Melonie Ochoa MD PCP - General Family Medicine 11/12/18 02/16/23 Lucero Hood MD Obstetrics & Gynecology 03/20/16 Abby Dinh APRN, DEGREASER #2 [facility] [address] [address] Nurse Practitioner Advanced Practice Nurse 02/21/22 documented as of this encounter
--- OUTSIDE RECORDS SUMMARY | 2024-04-11 00:48 | XMS_ITS | Encounter Summary ---
Author Organization [facility] [employer] Care Team Providers Care Drawer In Plain Loom Name Role Phone Lucero Hood MD Unavailable Unavail able Melonie Ochoa MD Primary Care Provider Encounter Details Date Type Department Care Team (Latest Contact Info) Description 10/24/2021 Travel Social History Tobacco Use Types Packs/Day [...] Master's degree (e.g., MA, MS, Marcellus, MEd, DIRECT SUPPORT WORKER, JOEY) 05/07/2020 Sexually Active Control Partners Comments [...] st Contact Info) Description 04/14/2024 7:00 AM SITE SAFETY MANAGER Appointment [facility] Mammography 1 [place] [phone] Ravi Krishna MD [address] [facility] [address] [facility] 105 [place] [address] 07/08/2024 9:30 AM CDT Office Visit [facility] - Pulmonology & Sleep Medicine - [place] #2 [place] [address] Abby Dinh APRN, ORDER TAKERS SUPERVISOR #2 [facility] [address] [place] [address] documented as of this encounter Goals Goal Patient Goal Type Associated Problems Recent Progress Patient-Stated? Author Grief Behavioral Health On track( 021 3:59 PM CDT) Mary Jane Morris, KRISTA Note: Brigid will cope with grief more effectively Goal Reviewed with: patient Readiness to change: Ready to change Department associated with goal: [facility] Steps to achieve [...] Total Score: 9 06/04/19 21 9:00 AM SITE SAFETY MANAGER documented as of this encounter Care Teams Drawer In Plain Loom Relationship Specialty Start Date End Date Melonie Ochoa MD PCP - General Family Medicine 11/12/18 02/16/23 Lucero Hood MD Obstetrics & Gynecology 03/20/16 documented as of this encounter
--- OUTSIDE RECORDS SUMMARY | 2024-04-11 00:48 | XMS_ITS | Encounter Summary ---
Author Organization [facility] Address [address] [place] [address] Phone Care Team Providers Care Chief Librarian Music Department Name Role Phone Lucero Hood MD Unavailable Unavail able Melonie Ochoa MD Primary Care Provider Reason for Visit * Reason Comments Medication Refill Encounter Details Date Type Department Care Team (Late st Contact Info) Description 12/08/2021 Refill [facility] - Primary Care - [place] [address] [place] [phone] Melonie Ochoa MD [address] [place] [address] Medication Refill Social History Tobacco [...] Master's degree (e.g., MA, MS, Marcellus, MEd, SUBSTITUTE CROSSING GUARD, JOEY) 05/07/2020 Sexually Active Control Partners Comments Yes Male Comments No Sex and Gender Information Value Date Recorded Sex Assigned at Not on file Legal Sex Female 7:07 PM CDT Gender Identity Not on file Sexual Orientation Not on file documented as of this encounter Miscellaneous Notes * Telephone Encounter - Eugenie Thomas RN - 12/09/2021 9:38 AM CDT Medication(s) [facility] and [facility] Medication Refill Standing Order for Pediatricand Adult Patients. Requested Prescriptions Pending Prescriptions Disp Refills ??? propranolol (INDERAL) 10 MG Tablet [Pharmacy Med Name: PROPRANOLOL 10 MG TABLET] 90 Tablet 0 Sig: TAKE 1 TABLET BY MOUTH THREE TIMES A DAY NEEDED FOR ANXIETY Beta-Blockers Protocol Passed - 12/08/2021 12:02 AM Passed - BP on record in the past year Clinician-entered: BP Readings from Last 3 Encounters: 10/24/21 118/82 08/06/21 112/74 07/25/21 120/78 Patient-entered: No data recorded Passed - Visit with relevant provider in past 12 months or upcoming 90 days Recent Visits Date Type Provider Dept 10/24/21 Office Visit Melonie Ochoa MD [facility] 07/25/21 Office Visit Melonie Ochoa MD [facility] 07/16/21 Telemedicine Kaity Blue APRN, CNP [facility] [address] 01/11/21 Office Visit Melonie Ochoa MD [facility] Showing recent visits within past 365 days and meeting all other requirements Future Appointments No visits were found meeting these conditions. Showing future appointments within next 90 days and meeting all other requirements documented in this encounter Plan of Treatment Upcoming Encounters Date Type Department Care Team (Late st Contact Info) Description 04/14/2024 7:00 AM ASSISTANT STORE MANAGER OPERATIONS [facility]ointment [facility] M[facility] 1 [place] [address] Ravi Krishna MD [address] [facility] [address] [place] [address] 07/08/2024 9:30 AM CDT Office Visit [facility] - Pulmonology & Sleep Medicine - [place] [address] [place] [address] Abby Dinh APRN, NURSE INFORMATICIST #[address] [facility] [address] [place] [address] documented as of this encounter Goals Goal Patient Goal Type Associated Problems Recent Progress Patient-Stated? Author Grief Behavioral Health On track( 021 3:59 PM CDT) Mary Jane Morris, KRISTA Note: Brigid will cope with grief more effectively Goal Reviewed with: patient Readiness to change: Ready to change Department associated with goal: [facility] Steps to [...] Total Score: 9 06/04/19 21 9:00 AM ASSISTANT STORE MANAGER OPERATIONS documented as of this encounter Care Teams Chief Librarian Music Department Relationship Specialty Start Date End Date Melonie Ochoa MD PCP - General Family Medicine 11/12/18 02/16/23 Lucero Hood MD Obstetrics & Gynecology 03/20/16 documented as of this encounter
--- OUTSIDE RECORDS SUMMARY | 2024-04-11 00:48 | XMS_ITS | Encounter Summary ---
Author Organization [facility] Address [address] [place] [address] Phone Care Team Providers Care Plisse Machine Operator Helper Name Role Phone Lucero Hood MD Unavailable Unavail able Melonie Ochoa MD Primary Care Provider [phone] Reason for Visit * Reason Onset Date Comments Medication Refill 10/25/2021 Encounter Details Date Type Department Care Team (Late st Contact Info) Description 10/25/2021 Refill [facility] - Primary Care - [place] [address] [place] [address] Melonie Ochoa MD [address] [place] [address] Medication Refill Social History Tobacco [...] Master's degree (e.g., MA, MS, Marcellus, MEd, FINISH PHOTOGRAPHER, JOEY) 05/07/2020 Sexually Active Control Partners Comments [...] Telephone Encounter - Eugenie Thomas RN - 10/25/2021 9:19 AM CDT Refill request for fluoxetine 20 mg-90 day supply. documented in this encounter Plan of Treatment Upcoming Encounters Date Type Department Care Team (Late st Contact Info) Description 04/14/2024 7:00 AM ESCALATOR INSTALLER Appointment [facility] Mammography 1 [place] [address] Ravi Krishna MD [address] [facility] [address] [address] 07/08/2024 9:30 AM CDT Office Visit [facility] - Pulmonology & Sleep Medicine - [place] [address]2 [place] [phone] Abby Dinh APRN, DRAWER MAKER #[address] [address] documented as of this encounter Goals Goal Patient Goal Type Associated Problems Recent Progress Patient-Stated? Author Grief Behavioral Health On track( 021 3:59 PM CDT) No Mary Jane Norman, TORCH OPERATOR Note: Brigid will cope with grief more [...] Total Score: 9 06/04/19 21 9:00 AM ESCALATOR INSTALLER documented as of this encounter Care Teams Plisse Machine Operator Helper Relationship Specialty Start Date End Date Melonie Ochoa MD PCP - General Family Medicine 11/12/18 02/16/23 Lucero Hood MD Obstetrics & Gynecology 03/20/16 documented as of this encounter
--- OUTSIDE RECORDS SUMMARY | 2024-04-11 00:48 | XMS_ITS | Encounter Summary ---
Author Organization [facility] Address [address] [place] [address] Phone Care Team Providers Care Fresh Food Manager Name Role Phone Lucero Hood MD Unavailable Unavail able Melonie Ochoa MD Primary Care Provider [phone] Reason for Visit * Reason Comments Medication Refill Encounter Details Date Type Department Care Team (Late st Contact Info) Description 10/08/2021 Refill [facility] - Primary Care - [place] [address] [place] [address] Melonie Ochoa MD [address] [place] [address] Medication Refill Social History Tobacco [...] Master's degree (e.g., MA, MS, Marcellus, MEd, CATTERY OPERATOR, JOEY) 05/07/2020 Sexually Active Control Partners Comments [...] Telephone Encounter - Eugenie Thomas RN - 10/08/2021 8:32 AM CDT Medication approved and signed per standing order protocol. documented in this encounter Plan of Treatment Upcoming Encounters Date Type Department Care Team (Late st Contact Info) Description 04/14/2024 7:00 AM DIRECTOR OF CORPORATE MARKETING Appointment [facility] Mammography 1 [place] [address] Ravi Krishna MD [address] [facility] [address] [address] 07/08/2024 9:30 AM CDT Office Visit [facility] - Pulmonology & Sleep Medicine - [place] #2 [place] [address] Abby Dinh APRN, TRAVELING STOREKEEPER #2 [facility] [address] [place] [address] documented as of this encounter Goals Goal Patient Goal Type Associated Problems Recent Progress Patient-Stated? Author Grief Behavioral Health On track( 021 3:59 PM CDT) Mary Jane Morris, KRISTA Note: Brigid will cope with grief more effectively Goal Reviewed with: patient Readiness to change: Ready to change Department associated with goal: [facility] Steps [...] Total Score: 9 06/04/19 21 9:00 AM DIRECTOR OF CORPORATE MARKETING documented as of this encounter Care Teams Fresh Food Manager Relationship Specialty Start Date End Date Melonie Ochoa MD PCP - General Family Medicine 11/12/18 02/16/23 Lucero Hood MD Obstetrics & Gynecology 03/20/16 documented as of this encounter
--- OUTSIDE RECORDS SUMMARY | 2024-04-11 00:48 | XMS_ITS | Encounter Summary ---
Author Organization [facility] Address [address] [place] [address] Phone Care Team Providers Care Deputy Sheriff Building Guard Name Role Phone Lucero Hood MD Unavailable Unavail able Melonie Ochoa MD Primary Care Provider [phone] Edna Yoder MD Primary Care Provider [phone] Abby Dinh APRN, ELECTROMECHANICAL ASSEMBLER Unavailable [phone] Reason for Visit * Reason Comments Transition of Care Encounter Details Date Type Department Care Team (Latest Contact Info) Description 07/10/2022 3:15 PM CDT Telemedicine [facility] - Primary Care - [place] [address] [place] [phone] Kaity Blue APRN, ELECTROMECHANICAL ASSEMBLER [address] [place], [place] [id number] Hyperlipidemia, unspecified hyperlipidemia type (Primary Dx); ARTHUR (generalized anxiety disorder); Depression, unspecified depression type; Preventative health care Social History Tobacco Use Types Packs/Day Years Used Date Smoking Tobacco: Never Smokeless Tobacco: Never Tobacco Cessation:Counseling Given: No Alcohol Use Standard Drinks/Week Comments Yes 1 (1 standard drink = 0.6 oz pure alcohol) 1 or 2 mixed drinks per week occasionally PHQ-2 Answer Date Recorded Total Score - Questions 1-9 9 05/15 Education Answer Date Recorded What is the highest level of school you have completed or the highest degree you have received? Master's degree (e.g., MA, MS, Marcellus, MEd, MILKING MACHINE OPERATOR, JOEY) 05/07/2020 Sexually Active Control Partners [...] Sign Reading Time Taken Comments Blood Pressure - - Pulse - - Temperature - - Respiratory Rate - - Oxygen Saturation - - Inhaled Oxygen Concentration - - Weight 98.9 kg (218 lb) 07/10/2022 3:10 PM CDT Height 167.6 cm (5' 6 ) 07/10/2022 3:10 PM CDT Body Mass Index 35.19 07/10/2022 3:10 PM CDT documented in this encounter Patient Instructions * Patient Instructions* Kaity Blue APRN, CNP - 07/10/2022 3:15 PM CDT Take all medications as prescribed. Please continue with a balanced lifestyle of exercise and healthy eating. If any question, please call. Thanks for coming in today! documented in this encounter Progress Notes * Paradise Patel RMA - 07/10/2022 3:15 PM CDT Airam Yan , 42 y.o., female is here for No chief complaint on file. Medication Refills: Patient reports/denies need for medication refills. Orders Pended: no Requested Prescriptions No prescriptions requested or ordered in this encounter Home Medications Medication Sig Start Date End Date Taking? Authorizing Provider cetirizine (ZYRTEC) 10 MG Tablet Take 10 mg by mouth daily. Yes ProviderBrian MD Cholecalciferol (VITAMIN D PO) Take 1,200 Units by mouth daily. Yes ProviderBrian MD EST ESTROGENS-METHYLTEST PO Take by mouth. Yes Emergency, Nurse, RN FLUoxetine (PROzac) 20 MG Capsule Take 1 capsule by mouth every day. 10/25/21 Melonie Ochoa MD fluticasone (FLONASE) 50 MCG/ACT Suspension 2 Sprays by Nasal route daily. Use in each nostril as directed. 11/09/18 Yes Melonie Ochoa MD Multiple Vitamin (MULTI-VITAMIN PO) Take by mouth daily. Yes Provider, MD Brian oxymetazoline (AFRIN NASAL SPRAY) 0.05 % Solution 2 Sprays by Nasal route 2 times daily. 11/09/18 Yes Melonie Ochoa MD propranolol (INDERAL) 10 MG Tablet TAKE 1 TABLET BY MOUTH THREE TIMES A DAY NEEDED FOR ANXIETY 12/09/21 Melonie Ochoa MD There are no discontinued [...] Drug use: No Smoking Cessation Counseling Given: n/a Health Care Maintenance: Health Maintenance Due Topic Date Due ??? Hepatitis B Immunization (1 of 3 - 3-dose series) Never done ??? Influenza Immunization (1) 12/12/2021 Orders Pended: no The following BPA's have been addressed with the patient today: N/A * Kaity Blue APRN, CNP - 07/10/2022 3:15 PM CDT [facility] - FAMILY MEDICINE [address] [address] Dept: [phone] Dept Loc: [phone] Loc Patient: Airam Munoz : 1980 Sex: female Subjective: Patient was assessed via online video for a duration of 7 minutes. Patient verbally consented for this service to be performed and billed.The patient was at home. HPI: Airam Munoz presents for lab review and Transition of Care Denies any acute concerns. Labs overall look good. All meds are OTCs besides estrogen that is from Gyne - post ATTILA. Actively in a study at [facility] for weight loss. Is down 20lbs in 2mo. HM: utd ROS Fourteen point review of systems negative except as documented in HPI. Objective: Vitals: 07/10/22 1510 Weight: 218 lb (98.9 kg) Height: 5' 6 (1.676 m) LMP 03/19/2020 (Approximate) Body mass index is 35.19 kg/m??. Physical Exam Unable to obtain via video visit Medical Decision Making: Assessment & Plan Diagnoses and all orders for this visit: Hyperlipidemia, unspecified hyperlipidemia type ARTHUR (generalized anxiety disorder) Depression, unspecified depression type Preventative health care - COMPLETE BLOOD COUNT (CBC) WITH DIFF; Future - CMP (COMPREHENSIVE METABOLIC PANEL); Future - THYROID SCREEN WITH REFLEX; Future - LIPID PANEL; Future Labs good. Repeat in in 1y Cont with healthy lifestyle Follow-up Information Return in about 1 year (around 07/11/2023). LOS Today OFFICE/OP EST LVL 3 LOW MDM/20-29 MIN documented in this encounter Miscellaneous Notes * Addendum Note - Paradise Patel RMA - 07/10/2022 3:15 PM CDTAddended by: PARADISE PATEL on: 01/11/2024 07:18 AM Modules accepted: Orders * Addendum Note - Paradise Patel RMA - 07/10/2022 3:15 PM CDTAddended by: PARADISE PATEL on: 01/11/2024 07:21 AM Modules accepted: Orders * Addendum Note - Paradise Patel RMA - 07/10/2022 3:15 PM CDTAddended by: PARADISE PATEL on: 01/11/2024 07:22 AM Modules accepted: Orders documented in this encounter Plan of Treatment Upcoming Encounters Date Type Department Care Team (Late st Contact Info) Description 04/14/2024 7:00 AM SUPERVISOR AGENCY APPOINTMENTS Appointment [facility] Mammography 1 [place] [address] Ravi Krishna MD [address] [address] 07/08/2024 9:30 AM CDT Office Visit [facility] - Pulmonology & Sleep Medicine [facility] #2 [place] [address] Abby Dinh APRN, ELECTROMECHANICAL ASSEMBLER #[address] [address] Scheduled Orders Name Type Priority Associated Diagnoses Orde r Schedule LIPID PANEL Lab Routine Preventative health care (Adult) Expected: 07/10/2023 (Approximate), Expires: 01/11/2024 documented as of this encounter Goals Goal Patient Goal Type Associated Problems Recent Progress Patient-Stated? Author Grief Behavioral Health On track( 021 3:59 PM CDT) No Mary Jane Norman LCSW Note: Brigid will cope with grief more effectively Goal Reviewed with: patient Readiness to change: Ready to change Department associated with goal: [facility] Steps to [...] as of this encounter Visit Diagnoses Diagnosis Hyperlipidemia, unspecified hyperlipidemia type- Primary ARTHUR (generalized anxiety disorder) Generalized anxiety disorder Depression, unspecified depression type Preventative health care (Adult) Routine general medical examination at a health care facility documented in this encounter Additional Health Concerns Assessment Noted Time PHQ-9 Depression Total Score: 9 06/04/19 21 9:00 AM SUPERVISOR AGENCY APPOINTMENTS documented as of this encounter Care Teams Deputy Sheriff Building Guard Relationship Specialty Start Date End Date Melonie Ochoa MD PCP - General Family Medicine 11/12/18 02/16/23 Edna Yoder MD [address] [facility] [address] PCP - General Internal Medicine 02/17/23 Lucero Hood MD Obstetrics & Gynecology 03/20/16 Abby Dinh APRN, ELECTROMECHANICAL ASSEMBLER #[address] [address] Nurse Practitioner Advanced Practice Nurse 02/21/22 documented as of this encounter
--- OUTSIDE RECORDS SUMMARY | 2024-04-11 00:48 | XMS_ITS | Encounter Summary ---
Author Organization [facility] Address [address] [place] [address] Phone Care Team Providers Care Eyeletter Name Role Phone Lucero Hood MD Unavailable Unavail able Melonie Ochoa MD Primary Care Provider Abby Dinh APRN, CAN RECONDITIONER Unavailable [phone] Reason for Visit * Reason Comments Weight Management Wt loss program at [facility] Encounter Details Date Type Department Care Team (Late st Contact Info) Description 03/04/2022 5:00 PM WRAPPER REWINDER Telemedicine [facility] - Primary Care - [place] [address] [place] [address] Mamta Mckeon APRN, CAN RECONDITIONER [address] [place] [address] Obesity (BMI 35.0-39.9 without comorbidity) (Primary Dx) Social History Tobacco Use Types [...] Master's degree (e.g., MA, MS, Marcellus, MEd, WORK ENVIRONMENT SAFETY INSPECTOR, JOEY) 05/07/2020 Sexually Active Control Partners [...] Coronavirus/COVID-19? No / Unsure 03/03/2022 7:45 PM WRAPPER REWINDER documented as of this encounter Last Filed Vital Signs Vital Sign Reading Time Taken Comments Blood Pressure - - Pulse - - Temperature - - Respiratory Rate - - Oxygen Saturation - - Inhaled Oxygen Concentration - - Weight - - Height 167.6 cm (5' 6 ) 03/04/2022 4:54 PM WRAPPER REWINDER Body Mass Index - - documented in this encounter Patient Instructions * Patient Instructions* Mamta Mckeon APRN, CNP - 03/04/2022 5:00 PM WRAPPER REWINDER Follow up as needed PER REWINDER documented in this encounter Progress Notes * Martha Garsia RMA - 03/04/2022 5:00 PM CST Airam Munoz is on video visit for Weight Management (Wt loss program at [facility]) . Medications and allergies reconciled with Airam Munoz. PER REWINDER * Mamta Mckeon APRN, CNP - 03/04/2022 5:00 PM CST Subjective: Patient was assessed via online video for a duration of 10 minutes.?? Patient verbally consented for this service to be performed and billed.The patient was in the car. Patient presents to address weight loss management. She states that she is enrolled in a weight loss steady at [facility] that starts on March 24. The study is for Sarah Ross. She states that she has not started anything yet but was just wanting to keep ever but he informed. She has no other concerns or complaints. Review of Systems Constitutional: In a study for sarah ross for weight loss. Starts 03/24. All other systems reviewed and are negative. Objective: Physical Exam Nursing note reviewed. Pulmonary: Effort: Pulmonary effort is normal. Neurological: Mental Status: She is alert and oriented to person, place, and time. Psychiatric: Mood and Affect: Mood normal. Video encounter. Physical exam omitted. Assessment and Plan See Diagnoses, Orders, Follow-up, and Instructions Encounter Diagnosis Name Primary? Obesity (BMI 35.0-39.9 without comorbidity) Yes Follow up as needed Documentation for this visit on 03/05/2022 was completed using a template. I have seen and examinedthe patient. Everything documented was personally performed at this visit with the necessary additions, deletions and changes made as appropriate. PER REWINDER documented in this encounter Plan of Treatment Upcoming Encounters Date Type Department Care Team (Late st Contact Info) Description 04/14/2024 7:00 AM WRAPPER REWINDER Appointment [facility] Mammography 1 [place] [address] Ravi Krishna MD [address] [facility] [address] [address] 07/08/2024 9:30 AM CDT Office Visit [facility] - Pulmonology & Sleep Medicine [facility] [address] [place] [address] Abby Dinh APRN, CAN RECONDITIONER [address] [address] documented as of this encounter Goals Goal Patient Goal Type Associated Problems Recent Progress Patient-Stated? Author Grief Behavioral Health On track( 021 3:59 PM CDT) Mary Jane Morris LCSW Note: Brigid will cope with grief more effectively Goal Reviewed with: patient Readiness to change: Ready to change Department associated with goal: [facility] Steps to achieve [...] as of this encounter Visit Diagnoses Diagnosis Obesity (BMI 35.0-39.9 without comorbidity)- Primary Obesity, unspecified documented in this encounter Additional Health Concerns Assessment Noted Time PHQ-9 Depression Total Score: 9 06/04/19 21 9:00 AM WRAPPER REWINDER documented as of this encounter Care Teams Eyeletter Relationship Specialty Start Date End Date Melonie Ochoa MD PCP - General Family Medicine 11/12/18 02/16/23 Lucero Hood MD Obstetrics & Gynecology 03/20/16 Abby Dinh APRN, CAN RECONDITIONER #[address] [address] Nurse Practitioner Advanced Practice Nurse 02/21/22 documented as of this encounter
--- OUTSIDE RECORDS SUMMARY | 2024-04-11 00:48 | XMS_ITS | Encounter Summary ---
Author Organization [facility] Address [address] [place] [address] Phone Care Team Providers Care Corporate Tax Manager Name Role Phone Lucero Hood MD Unavailable Melonie Erwin MD Primary Care Provider Reason for Visit * Reason Onset Date Comments Results 09/26/2021 APAP Ordered Encounter Details Date Type Department Care Team (Late st Contact Info) Description 09/26/2021 Telephone [facility] - Pulmonology & Sleep Medicine [facility] [address] [place] [address] Abby Dinh APRN, OBSERVER HELPER #[address] [address] Results (APAP Ordered ) Social History Tobacco Use Types Packs/Day Years [...] Master's degree (e.g., MA, MS, Marcellus, MEd, CABLE INSTALLER REPAIRER, JOEY) 05/07/2020 Sexually Active Control Partners Comments [...] encounter Miscellaneous Notes * Telephone Encounter - Kusum Cintron RN - 09/27/2021 2:20 PM CDT Patient is aware and verbalizes understanding. Order placed and faxed to [facility] * Telephone Encounter - Abby Dinh APRN, CNP - 09/26/2021 9:05 AM CDT Please let patient know her HST done on 09/16/21 showed moderate sleep apnea with RDI of 27.1 and oxygen desaturation to 82%. Would recommend APAP 5-15cm. Please send order to DME of patients choice. documented in this encounter Plan of Treatment Upcoming Encounters Date Type Department Care Team (Late st Contact Info) Description 04/14/2024 7:00 AM CONTINUING EDUCATION DIRECTOR Appointment [facility] Mammography 1 [place] [id number] Ravi Krishna MD [address] [address] 07/08/2024 9:30 AM CDT Office Visit [facility] - Pulmonology & Sleep Medicine - [place] [address] [place] [address] Abby Dinh APRN, CNP [address] [address] documented as of this encounter Goals Goal Patient Goal Type Associated Problems Recent Progress Patient-Stated? Author Grief Behavioral Health On track( 021 3:59 PM CDT) Mary Jane Morris, NURSE INTERN Note: Brigid will cope with grief more effectively Goal Reviewed with: patient Readiness to change: Ready to change Department associated with goal: [facility] Steps to achieve [...] syndrome- Primary Obstructive sleep apnea (adult) (pediatric) documented in this encounter Additional Health Concerns Assessment Noted Time PHQ-9 Depression Total Score: 9 06/04/19 21 9:00 AM CONTINUING EDUCATION DIRECTOR documented as of this encounter Care Teams Corporate Tax Manager Relationship Specialty Start Date End Date Melonie Ochoa MD PCP - General Family Medicine 11/12/18 02/16/23 Lucero Hood MD Obstetrics & Gynecology 03/20/16 documented as of this encounter
--- OUTSIDE RECORDS SUMMARY | 2024-04-11 00:48 | XMS_ITS | Encounter Summary ---
Author Organization [facility] Address [address] [place] [address] Phone Care Team Providers Care Logistics Account Manager Name Role Phone Lucero Hood MD Unavailable Unavail able Melonie Ochoa MD Primary Care Provider [phone] Edna Yoder MD Primary Care Provider [phone] Abby Dinh APRN, AMANDEEP Unavailable Reason for Visit * Reason Comments Medication Refill Encounter Details Date Type Department Care Team (Late st Contact Info) Description 06/02/[address] [facility] - Primary Care - [place] [address] [address] Melonie Ochoa MD [address] [place] [address] Medication Refill Social History Tobacco [...] Master's degree (e.g., MA, MS, Marcellus, MEd, FIELD TRAINING MANAGER, JOEY) 05/07/2020 Sexually Active Control Partners Comments Yes Male Comments No Sex and Gender Information Value Date Recorded Sex Assigned at Not on file Legal Sex Female 7:07 PM CDT Gender Identity Not on file Sexual Orientation Not on file documented as of this encounter Miscellaneous Notes * Telephone Encounter - Rae Lozoya RN - 06/02/2022 9:20 AM CST Pt scheduled JANNETH with Kaity Blue APN, SVP. Pt states she no longer takes prozac due to being in a weight loss study. AND GAS LEASE PUMPER documented in this encounter Plan of Treatment Upcoming Encounters Date Type Department Care Team (Late st Contact Info) Description 04/14/2024 7:00 AM OIL AND GAS LEASE PUMPER Appointment [facility] Mammography 1 [place] [address] Ravi Krishna MD [address] [facility] [address] [address] 07/08/2024 9:30 AM CDT Office Visit [facility] - Pulmonology & Sleep Medicine - [place] [address] [place] [address] Abby Dinh APRN, AMANDEEP [address] [address] documented as of this encounter Goals Goal Patient Goal Type Associated Problems Recent Progress Patient-Stated? Author Grief Behavioral Health On track( 021 3:59 PM CDT) No Mary Jane Norman LCSW Note: Brigid will cope with grief more effectively Goal Reviewed with: patient Readiness to change: Ready to change Department associated with goal: [facility] Steps to [...] Total Score: 9 06/04/19 21 9:00 AM OIL AND GAS LEASE PUMPER documented as of this encounter Care Teams Logistics Account Manager Relationship Specialty Start Date End Date Melonie Ochoa MD PCP - General Family Medicine 11/12/18 02/16/23 Edna Yoder MD [address] [place] [address] PCP - General Internal Medicine 02/17/23 Lucero Hood MD Obstetrics & Gynecology 03/20/16 Abby Dinh APRN, SVP #[address] [address] Nurse Practitioner Advanced Practice Nurse 02/21/22 documented as of this encounter
--- OUTSIDE RECORDS SUMMARY | 2024-04-11 00:48 | XMS_ITS | Encounter Summary ---
Author Organization [facility] Address [address] [place] [address] Phone Care Team Providers Care Director Medical Safety Name Role Phone Lucero Hood MD Unavailable Unavail able Melonie Ochoa MD Primary Care Provider [phone] Reason for Visit * Reason Comments Medication Refill Encounter Details Date Type Department Care Team (Late st Contact Info) Description 08/02/2021 Refill [facility] - Primary Care - [place] [address] [place] [address] Melonie Ochoa MD [address] [place] [address] Medication Refill Social History Tobacco [...] Master's degree (e.g., MA, MS, Marcellus, MEd, LINDERMAN OPERATOR, JOEY) 05/07/2020 Sexually Active Control Partners [...] suspected to have Coronavirus/COVID-19? No / Unsure 07/24/2021 3:11 PM CDT documented as of this encounter Miscellaneous Notes * Telephone Encounter - Eugenie Thomas RN - 08/05/2021 8:28 AM CDT Medication approved and signed per standing order protocol. documented in this encounter Plan of Treatment Upcoming Encounters Date Type Department Care Team (Late st Contact Info) Description 04/14/2024 7:00 AM HEAD MEN'S GOLF COACH Appointment [facility] Mammography 1 [place] [address] Ravi Krishna MD [address] [facility] [address] [address] 07/08/2024 9:30 AM CDT Office Visit [facility] - Pulmonology & Sleep Medicine - [place] [address] [place] [address] Abby Dinh APRN, TRAFFIC WAREHOUSE SUPERVISOR #2 [facility] [address] [place] [address] documented as of this encounter Goals Goal Patient Goal Type Associated Problems Recent Progress Patient-Stated? Author Grief Behavioral Health On track( 021 3:59 PM CDT) Mary Jane Morris, KRISTA Note: Brigid will cope with grief more effectively Goal Reviewed with: patient Readiness to change: Ready to change Department associated with goal: [facility] Steps to achieve [...] Total Score: 9 06/04/19 21 9:00 AM HEAD MEN'S GOLF COACH documented as of this encounter Care Teams Director Medical Safety Relationship Specialty Start Date End Date Melonie Ochoa MD PCP - General Family Medicine 11/12/18 02/16/23 Lucero Hood MD Obstetrics & Gynecology 03/20/16 documented as of this encounter
--- OUTSIDE RECORDS SUMMARY | 2024-04-11 00:48 | XMS_ITS | Encounter Summary ---
Author Organization [facility] Address [address] [place] [address] Phone Care Team Providers Care Submarine Cable Equipment Technician Name Role Phone Lucero Hood MD Unavailable Unavail able Melonie Ochoa MD Primary Care Provider [phone] Reason for Visit * Reason Comments Follow-up 3 mo f/u Encounter Details Date Type Department Care Team (Latest Contact Info) Description 10/24/2021 11:45 AM CDT Office Visit [facility] - Primary Care - [place] [address] [place] [phone] Melonie Ochoa MD [address] [place] [address] Hyperlipidemia, unspecified hyperlipidemia type (Primary Dx); Obesity (BMI 35.0-39.9 without comorbidity); Depression, unspecified depression type Discharge Disposition: Discharged to home or [...] Master's degree (e.g., MA, MS, Marcellus, MEd, CANDLEMAKING LABORER, JOEY) 05/07/2020 Sexually Active Control Partners Comments [...] Sign Reading Time Taken Comments Blood Pressure 118/82 10/24/2021 11:37 AM CDT Pulse 67 10/24/2021 11:37 AM CDT Temperature 37.1 ??C (98.7 ??F) 10/24/2021 11:37 AM C DT Respiratory Rate 18 10/24/2021 11:37 AM CDT Oxygen Saturation 98% 10/24/2021 11:37 AM CDT Inhaled Oxygen Concentration - - Weight 103.9 kg (229 lb) 10/24/2021 11:37 AM CDT Height 167.6 cm (5' 6 ) 10/24/2021 11:37 AM CDT Body Mass Index 36.96 10/24/2021 11:37 AM CDT documented in this encounter Progress Notes * Tami Johnson RMA - 10/24/2021 11:45 AM CDT Airam Munoz, 41 y.o., female is here for Follow-up (3 mo f/u) Medication Refills: Patient reports/denies need for medication [...] Nurse, RN FLUoxetine (PROzac) 20 MG Capsule TAKE 1 CAPSULE BY MOUTH EVERY DAY 10/08/21 Yes Melonie Ochoa MD fluticasone (FLONASE) 50 MCG/ACT [...] THREE TIMES A DAY NEEDED FOR ANXIETY 10/07/21 Yes Melonie Ochoa MD There are no discontinued medications. I have reviewed the home medication list with the patient and have reconciled discrepancies. The list is accurate to the best of my knowledge. Smoking Status: Social History Tobacco Use ??? Smoking status: Never Smoker ??? Smokeless tobacco: Never Used Vaping Use ??? Vaping Use: Never used Substance Use Topics ??? Alcohol use: Yes Alcohol/week: 0.6 oz Types: 1 Shots of liquor per week Comment: 1 or 2 mixed drinks per week occasionally ??? Drug use: No Smoking Cessation Counseling Given: no Health Care Maintenance: Health Maintenance Due Topic Date Due ??? Hepatitis B Immunization (1 of 3 - 3-dose series) Never done ??? Pap Smear 09/13/2017 Orders Pended: no The following BPA's have been addressed with the patient today: N/A * Melonie Ochoa MD - 10/24/2021 11:45 AM CDT Subjective Chief Complaint Patient presents with ??? Follow-up 3 mo f/u History of Present Illness Airam presents here for a 3 month followup visit. Vitals stable with a BP of 118/82 mmHg. She continues to take her Prozac 20 mg daily and reports her depression symptoms are under good control. Her labs done today, 10/24/2021, were reviewed. Thyroid functions are normal. Hemoglobin A1c is normal at 4.9. Lipid panel is abnormal with a total cholesterol of 232 and LDL of 163. It is increased from her previous lipid panel. Low-fat diet and exercise recommended. CMP is within acceptable limits. CBC is normal. IJN: [id number] ROS: RESPIRATORY: Patient denies shortness of breath, chronic cough or other respiratory problems. CARDIAC: Patient denies chest pain, chest pressure, palpitations, diaphoresis, chest pain radiating into arms or neck. PMH/PSH/FH/SH/medications/allergies/health maintenance entries were reviewed with patient and updated. Objective: Physical Exam Vitals: 10/24/21 1137 BP: 118/82 Pulse: 67 Resp: 18 Temp: 98.7 ??F (37.1 ??C) TempSrc: Temporal SpO2: 98% Weight: 229 lb (103.9 kg) Height: 5' 6 (1.676 m) Body mass index is 36.96 kg/m??. Constitutional: She appears well-developed and well-nourished. No distress. HENT: Head: Atraumatic, normocephalic. Cardiovascular: Normal rate, regular rhythm, normal heart sounds and intact distal pulses. No murmur/rubs/gallops heard. Pulmonary/Chest: clear to auscultation bilaterally, no crepts or wheezes. Musculoskeletal/extremities: no pedal edema, no calf tenderness. Skin: Skin is warm and dry. Assessment and Plan Airam Munoz presents here for Follow-up (3 mo f/u) 1. Hyperlipidemia, unspecified hyperlipidemia type - fat diet, exercise, weight loss recommended. 2. Obesity (BMI 35.0-39.9 without comorbidity) - previously tried phentermine which gave side effects so discontinued. - start Semaglutide-Weight Management (Wegovy) 0.25 MG/0.5ML Solution Auto- injector; Initial dosageand titration, 0.25 mg subQ once weekly for weeks 1 through 4; then 0.5 mg once weekly for weeks 5 through 8; then 1 mg once weekly for weeks 9 through 12; then 1.7 mg once weekly for weeks 13 through 16; maintenance, 2.4 mg once weekly thereafter. If titration is not tolerated due 3. Depression, unspecified depression type - continue Prozac 20 mg q.d. Followup: Return in about 6 months (around 04/26/2022).with labs done 1 week prior to next appointment. The patient understood the plan, questions were answered and AVS including the updated medication list was provided to the patient. Documentation for this visit on 10/24/21 was completed using a template. I have seen and examined the patient. Everything documented was personally performed at this visit with the necessary additions, deletions and changes made as appropriate. This note was dictated using If You Can fluency dictation system and there may be errors in director family. Despite proof reading the note, there may be mistakes and I apologize for those. Melonie Ochoa MD documented in this encounter Plan of Treatment Upcoming Encounters Date Type Department Care Team (Late st Contact Info) Description 04/14/2024 7:00 AM LAWYER CRIMINAL Appointment [facility] Mammography 1 [place] [address] Ravi Krishna MD [address] [facility] [address] [facility] [address] [place] [address] 07/08/2024 9:30 AM CDT Office Visit [facility] - Pulmonology & Sleep Medicine - [place] [address] [place] [address] Abby Dinh APRN, ENGINEER RF DEPLOYMENT #2 [facility] [address] [place] [address] documented as of this encounter Goals Goal Patient Goal Type Associated Problems Recent Progress Patient-Stated? Author Grief Behavioral Health On track( 021 3:59 PM CDT) Mary Jane Morris, KRISTA Note: Brigid will cope with grief more effectively Goal Reviewed with: patient Readiness to change: Ready to change Department associated with goal: [facility] Steps to achieve [...] documented as of this encounter Results * THYROID STIMULATING HORMONE (TSH) (06/28/2022 8:14 AM CDT) Pathologist [facility] TSH 1.840 0.270 - 4.200 mIU/L 06/28/2022 9:04 AM CDT [facility] Blood Venipuncture / Unknown 06/28/2022 8:14 AM CDT 06/28/2022 8:34 AM CDT Melonie Ochoa MD CHEMISTRY ORDERABLES Final R esult Performing Organization Address City/[facility]/ZIP Co de Phone Number [facility] [address] [place] [address] * THYROXINE (T4) FREE (06/28/2022 8:14 AM CDT) Pathologist [facility] T4 FREE 0.9 0.9 - 1.7 ng/dL 06/28/2022 9:04 AM CDT [facility] Blood Venipuncture / Unknown 06/28/2022 8:14 AM CDT 06/28/2022 8:34 AM CDT us Melonie Ochoa MD CHEMISTRY ORDERABLES Final R esult Performing Organization Address City/[facility]/ZIP Co de Phone Number [facility] [address] [place] [address] * (ABNORMAL) LIPID PANEL (06/28/2022 8:14 AM CDT) Pathologist [facility] CHOLESTEROL 193 <=200 mg/dL 06/28/2022 9:04 AM CDT [facility] TRIGLYCERIDES 100 <150 mg/dL 06/28/2022 9:04 AM CDT [facility] HDL CHOLESTEROL 44.2 >40 mg/dL 9:04 AM CDT [facility] LDL 129 5 - 130 mg/dL 06/28/2022 9:04 AM CDT [facility] VLDL 20 5 - 55 mg/dL 06/28/2022 9:04 AM CDT [facility] CHOL/HDL RATIO 4.4 0.0 - 4.4 06/28/2022 9:04 AM CDT [facility] NON-HDL CHOLESTEROL 148.8(H) <130 mg/dL 06/28/2022 9:04 AM CDT [facility] IS THE PATIENT REQUIRED TO BE FASTING? Yes 06/28/2022 9:04 AM CDT [facility] HAS THE PATIENT BEEN FASTING? Yes 06/28/2022 9:04 AM CDT [facility] Blood Venipuncture / Unknown 06/28/2022 8:14 AM CDT 06/28/2022 8:34 AM CDT us Melonie Ochoa MD CHEMISTRY ORDERABLES Final R esult [facility] [address] [place] [address] * (ABNORMAL) CMP (COMPREHENSIVE METABOLIC PANEL) (06/28/2022 8:14 AM CDT) SODIUM 139 136 - 144 mmol/L 06/28/2022 9:04 AM CDT [facility] POTASSIUM 3.9 3.5 - 5.1 mmol/L 06/28/2022 9:04 AM CDT [facility] CHLORIDE 106 100 - 110 mmol/L 06/28/2022 9:04 AM CDT [facility] CO2, VENOUS 23 22 - 32 mmol/L 06/28/2022 9:04 AM CDT [facility] ANION GAP 13.9 8.0 - 20.0 mmol/L 06/28/2022 9:04 AM CDT [facility] GLUCOSE 106(H) 70 - 99 mg/dL 06/28/2022 9:04 AM [facility] BUN 12 6 - 20 mg/dL 06/28/2022 9:04 AM [facility] CREATININE, BLOOD 0.72 0.60 - 1.10 mg/dL 06/28/2022 9:04 AM [facility] BUN/CREATININE RATIO 17 12 - 20 ratio 06/28/2022 9:04 AM [facility] TOTAL PROTEIN 7.3 6.0 - 8.3 g/dL 06/28/2022 9:04 AM [facility] ALBUMIN 4.3 3.5 - 5.2 g/dL 06/28/2022 9:04 AM [facility] Comment: The colormetric methods used for the determination of Albumin may lead to falsely elevated test results in patients suffering from renal failure or insufficiency due to interference with other proteins. A/G RATIO 1.4 1.0 - 2.0 06/28/2022 9:04 AM [facility] CALCIUM 9.4 8.9 - 10.3 mg/dL 06/28/2022 9:04 AM [facility] T BILI 0.3 <=1.2 mg/dL 06/28/2022 9:04 AM [facility] SGOT (AST) 21 <=32 U/L 06/28/2022 9:04 AM [facility] SGPT (ALT) 32 <=41 U/L 06/28/2022 9:04 AM [facility] ALKALINE PHOSPHATASE 21(L) 35 - 105 U/L 06/28/2022 9:04 AM [facility] IS THE PATIENT REQUIRED TO BE FASTING? No 06/28/2022 9:04 AM [facility] GFR, ESTIMATED >60 >=60 06/28/2022 9:04 AM [facility] Comment: Creatinine Clearance is the preferred criteria for selecting drug dose adjustments in renally impaired patients. ??The GFR is provided as additional pertinent clinical information. GFR is reported in mL/min/1.73 sq m. Calculation based on the Chronic Kidney Disease Epidemiology Collaboration (CKD- EPI) equation refit without adjustment for race. GFR, EST. >60 >=60 023 9:04 AM CDT [facility] GFR, EST. NONAFRICAN >60 >=60 06/28/2022 9:04 AM CDT [facility] Blood Venipuncture / Unknown 06/28/2022 8:14 AM CDT 06/28/2022 8:34 AM CDT us Melonie Ochoa MD CHEMISTRY ORDERABLES Final R esult [facility] [address] [place] [address] documented in this encounter Visit Diagnoses Diagnosis Hyperlipidemia, unspecified hyperlipidemia type- Primary Obesity (BMI 35.0-39.9 without comorbidity) Obesity, unspecified Depression, unspecified depression type documented in this encounter Additional Health Concerns Assessment Noted Time PHQ-9 Depression Total Score: 9 06/04/19 21 9:00 AM LAWYER CRIMINAL documented as of this encounter Care Teams Submarine Cable Equipment Technician Relationship Specialty Start Date End Date Melonie Ochoa MD PCP - General Family Medicine 11/12/18 02/16/23 Lucero Hood MD Obstetrics & Gynecology 03/20/16 documented as of this encounter
--- OUTSIDE RECORDS SUMMARY | 2024-04-11 00:48 | XMS_ITS | Encounter Summary ---
Author Organization [facility] Care Team Providers Care Drawing Supervisor Name Role Phone Lucero Hood MD Unavailable Unavail able Melonie Ochoa MD Primary Care Provider Encounter Details Date Type Department Care Team (Latest Contact Info) Description 09/17/2021 Travel Social History Tobacco Use Types Packs/Day [...] Master's degree (e.g., MA, MS, Marcellus, MEd, CALL CENTER ASSISTANT, JOEY) 05/07/2020 Sexually Active Control Partners [...] st Contact Info) Description 04/14/2024 7:00 AM PACKAGER HEAD Appointment [facility] Mammography 1 [place] [phone] Ravi Krishna MD [address] [facility] [address] [place] [address] 07/08/2024 9:30 AM CDT Office Visit [facility] - Pulmonology & Sleep Medicine - [place] [address] [place] [address] Abby Dinh APRN, PULLER OVER #2 [facility] [address] [place] [address] documented as of this encounter Goals Goal Patient Goal Type Associated Problems Recent Progress Patient-Stated? Author Grief Behavioral Health On track( 021 3:59 PM CDT) Mary Jane Morris, KRISTA Note: Brigid will cope with grief more effectively Goal Reviewed with: patient Readiness to change: Ready to change Department associated with goal: [facility] Steps to [...] Total Score: 9 06/04/19 21 9:00 AM PACKAGER HEAD documented as of this encounter Care Teams Drawing Supervisor Relationship Specialty Start Date End Date Melonie Ochoa MD PCP - General Family Medicine 11/12/18 02/16/23 Lucero Hood MD Obstetrics & Gynecology 03/20/16 documented as of this encounter
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
--- OUTSIDE RECORDS SUMMARY | 2024-04-11 00:49 | XMS_ITS | Encounter Summary ---
Author Organization [facility] Address [address] [place] [address] Phone Care Team Providers Care Office Engineer Name Role Phone Lucero Hood MD Unavailable Unavail able Melonie Ochoa MD Primary Care Provider [phone] Edna Yoder MD Primary Care Provider [phone] Abby Dinh APRN, AMANDEEP Unavailable [phone] Reason for Visit * Reason Comments Medication Refill Encounter Details Date Type Department Care Team (Late st Contact Info) Description 11/13/2020 Refill [facility] - Primary Care - [place] [address] [place] [address] Melonie Ochoa MD [address] [place] [address] Medication Refill Social History Tobacco [...] Master's degree (e.g., MA, MS, Marcellus, MEd, ASSEMBLY LINE DRIVER, JOEY) 05/07/2020 Sexually Active Control Partners Comments Yes Male Comments No Sex and Gender Information Value Date Recorded Sex Assigned at Not on file Legal Sex Female 7:07 PM CDT Gender Identity Not on file Sexual Orientation Not on file documented as of this encounter Miscellaneous Notes * Telephone Encounter - Rae Lozoya RN - 11/13/2020 8:59 AM CDT Medication failed the protocol, provider to review and approve the medication order if appropriate. Requested Prescriptions Pending Prescriptions Disp Refills FLUoxetine (PROzac) 10 MG Capsule [Pharmacy Med Name: FLUOXETINE HCL 10 MG CAPSULE] 30 Capsule 2 Sig: TAKE 1 CAPSULE BY MOUTH EVERY DAY [facility] (6 Month Refill Only) Protocol Failed - 11/13/2020 8:59 AM Failed - Patient has established therapy with [facility] for at least 6 months Passed - Visit with relevant provider in past 6 months or upcoming 90 days Recent Visits Date Type Provider Dept 09/14/20 Office Visit Melonie Ochoa MD [facility] 06/18/20 Telemedicine Melonie Ochoa MD [facility] 05/17/20 Telemedicine Melonie Ochoa MD [facility] [place] [facility] Showing recent visits within past 182 days and meeting all other requirements Future Appointments Date Type Provider Dept 12/20/20 Appointment Melonie Ochoa MD [facility] Showing future appointments within next 90 days and meeting all other requirements Passed - Has an encounter in the past 6 months with a depression, anxiety, adjustment disorder, OCD, or PTSD visit diagnosis documented in this encounter Plan of Treatment Upcoming Encounters Date Type Department Care Team (Late st Contact Info) Description 04/14/2024 7:00 AM VP CLINICAL RESEARCH [facility]ment [facility] 1 [place] [phone] Ravi Krishna MD [address] [facility] [address] [place] [address] 07/08/2024 9:30 AM CDT [facility] - [place] [address] [place] [address] Abby Dinh APRN, LAG SCREWER #2 [facility] [address] [place] [address] documented as of this encounter Visit Diagnoses Diagnosis ARTHUR (generalized anxiety disorder) Generalized anxiety disorder Depression, unspecified depression type documented in this encounter Additional Health Concerns Assessment Noted Time PHQ-9 Depression Total Score: 9 06/04/19 21 9:00 AM VP CLINICAL RESEARCH documented as of this encounter Care Teams Office Engineer Relationship Specialty Start Date End Date Melonie Ochoa MD PCP - General Family Medicine 11/12/18 02/16/23 Edna Yoder MD [place] [address] PCP - General Internal Medicine 02/17/23 Lucero Hood MD Obstetrics & Gynecology 03/20/16 Abby Dinh APRN, AMANDEEP [address]2 [facility] [address] [place] [address] Nurse Practitioner Advanced Practice Nurse 02/21/22 documented as of this encounter
--- OUTSIDE RECORDS SUMMARY | 2024-04-11 00:49 | XMS_ITS | Encounter Summary ---
Author Organization [facility] Address [address] [place] [address] Phone Care Team Providers Care Guitar Maker Hand Name Role Phone Lucero Hood MD Unavailable Unavail able Melonie Ochoa MD Primary Care Provider [phone] Reason for Visit * Reason Comments Medication Refill Encounter Details Date Type Department Care Team (Late st Contact Info) Description 06/14/2021 Refill [facility] - Primary Care - [place] [address] [place] [address] Melonie Ochoa MD [address] [place] [address] Medication Refill Social History Tobacco [...] Master's degree (e.g., MA, MS, Marcellus, MEd, PHOTO PRINT SPECIALIST, JOEY) 05/07/2020 Sexually Active Control Partners Comments Yes Male Comments No Sex and Gender Information Value Date Recorded Sex Assigned at Not on file Legal Sex Female 7:07 PM CDT Gender Identity Not on file Sexual Orientation Not on file documented as of this encounter Miscellaneous Notes * Telephone Encounter - Eugenie Thomas RN - 06/17/2021 8:05 AM TRADE UNION OFFICIAL Medication approved and signed per standing order protocol. E UNION OFFICIAL documented in this encounter Plan of Treatment Upcoming Encounters Date Type Department Care Team (Late st Contact Info) Description 04/14/2024 7:00 AM TRADE UNION OFFICIAL Appointment [facility] Mammography [address] [place] [address] Ravi Krishna MD 6810 [facility] 162 [facility] 105 [place] [address] 07/08/2024 9:30 AM CDT Office Visit [facility] - Pulmonology & Sleep Medicine - [place] #2 [place] [address] Abby Dinh APRN, VEHICLE OPERATOR #2 [facility] 105 [place] [address] documented as of this encounter Goals Goal Patient Goal Type Associated Problems Recent Progress Patient-Stated? Author Grief Behavioral Health On track( 021 3:59 PM CDT) Mary Jane Morris, LUMBER HACKER Note: Brigid will cope with grief more effectively Goal Reviewed with: patient Readiness to change: Ready to change Department associated with goal: [facility] Steps to [...] ARTHRU (generalized anxiety disorder) Generalized anxiety disorder Depression, unspecified depression type documented in this encounter Additional Health Concerns Assessment Noted Time PHQ-9 Depression Total Score: 9 06/04/19 21 9:00 AM TRADE UNION OFFICIAL documented as of this encounter Care Teams Guitar Maker Hand Relationship Specialty Start Date End Date Melonie Ochoa MD PCP - General Family Medicine 11/12/18 02/16/23 Lucero Hood MD Obstetrics & Gynecology 03/20/16 documented as of this encounter
--- OUTSIDE RECORDS SUMMARY | 2024-04-11 00:49 | XMS_ITS | Encounter Summary ---
Author Organization [facility] Address [address] [place] [address] Phone Care Team Providers Care Bicycle I Assembler Name Role Phone Lucero Hood MD Unavailable Unavail able Melonie Ochoa MD Primary Care Provider [phone] Edna Yoder MD Primary Care Provider [phone] Abby Dinh APRN, AMANDEEP Unavailable [phone] Reason for Visit * Reason Comments Medication Refill Encounter Details Date Type Department Care Team (Late st Contact Info) Description 04/11/[address] [facility] - Primary Care - [place] [address] [place] [address] Melonie Ochoa MD [address] [place] [address] Medication Refill Social History Tobacco [...] Master's degree (e.g., MA, MS, Marcellus, MEd, DRAPERY COUNSELOR, JOEY) 05/07/2020 Sexually Active Control Partners Comments Yes Male Comments No Sex and Gender Information Value Date Recorded Sex Assigned at Not on file Legal Sex Female 7:07 PM CDT Gender Identity Not on file Sexual Orientation Not on file documented as of this encounter Miscellaneous Notes * Telephone Encounter - Anjelica Rhoades RN - 04/11/2021 12:12 PM FISHERY DIVISION CHIEF Medication approved and signed per standing order protocol. ERY DIVISION CHIEF documented in this encounter Plan of Treatment Upcoming Encounters Date Type Department Care Team (Late st Contact Info) Description 04/14/2024 7:00 AM FISHERY DIVISION CHIEF Appointment [facility] Mammography 1 [place] [address] Ravi Krishna MD [address] [address] 07/08/2024 9:30 AM CDT Office Visit [facility] - Pulmonology & Sleep Medicine [facility] #2 [place] [address] Abby Dinh APRN, AMANDEEP [address] [address] documented as of this encounter Goals Goal Patient Goal Type Associated Problems Recent Progress Patient-Stated? Author Grief Behavioral Health On track( 021 3:59 PM CDT) No Mary Jane Norman LCSW Note: Brigid will cope with grief more effectively Goal Reviewed with: patient Readiness to change: Ready to change Department associated with goal: [facility] Steps to achieve goal: [...] Total Score: 9 06/04/19 21 9:00 AM FISHERY DIVISION CHIEF documented as of this encounter Care Teams Bicycle I Assembler Relationship Specialty Start Date End Date Melonie Ochoa MD PCP - General Family Medicine 11/12/18 02/16/23 Edna Yoder MD [address] [facility] [facility] [place] [address] PCP - General Internal Medicine 02/17/23 Lucero Hood MD Obstetrics & Gynecology 03/20/16 Abby Dinh APRN, COMBINATION TECHNICIAN #[address] [address] Nurse Practitioner Advanced Practice Nurse 02/21/22 documented as of this encounter
--- OUTSIDE RECORDS SUMMARY | 2024-04-11 00:49 | XMS_ITS | Encounter Summary ---
Author Organization [facility] Address [address] [place] [place] [address] Phone Care Team Providers Care Distillery Supervisor Name Role Phone Lucero Hood MD Unavailable [facility] able Melonie Ochoa MD Primary Care Provider Reason for Visit * Reason Comments Results Encounter Details Date Type Department Care Team (Late st Contact Info) Description 01/11/2021 10:45 AM CDT Office Visit [facility] - Primary Care - [place] [address] [place] [address] Melonie Ochoa MD [address] [place] [address] Obesity (BMI 35.0-39.9 without comorbidity) (Primary Dx); Grief reaction; ARTHUR (generalized anxiety disorder); Depression, unspecified depression type Discharge Disposition: Discharged [...] Master's degree (e.g., MA, MS, Marcellus, MEd, NURSES AIDE, JOEY) 05/07/2020 Sexually Active Control Partners [...] have Coronavirus / COVID-19? No / Unsure 01/11/2021 9:28 AM CDT documented as of this encounter Last Filed Vital Signs Vital Sign Reading Time Taken Comments Blood Pressure 122/74 01/11/2021 10:52 AM CDT Pulse 75 01/11/2021 10:52 AM CDT Temperature 36.5 ??C (97.7 ??F) 01/11/2021 10:52 AM C DT Respiratory Rate 20 01/11/2021 10:52 AM CDT Oxygen Saturation 98% 01/11/2021 10:52 AM CDT Inhaled Oxygen Concentration - - Weight 98.9 kg (218 lb) 01/11/2021 10:52 AM CDT Height 167.6 cm (5' 6 ) 01/11/2021 10:52 AM CDT Body Mass Index 35.19 01/11/2021 10:52 AM CDT documented in this encounter Progress Notes * Nica Robles, VLADIMIR - 01/11/2021 10:45 AM CDT Airam Yuriy Munoz, 40 y.o., female is here for No chief [...] PO Take by mouth. Emergency, Nurse, RN FLUoxetine (PROzac) 10 MG Capsule TAKE 1 CAPSULE BY MOUTH EVERY DAY 11/13/20 Melonie Ochoa MD fluticasone (FLONASE) 50 MCG/ACT Suspension 2 Sprays by Nasal route daily. Use in each nostril as directed. 11/09/18 Melonie Ochoa MD Multiple Vitamin (MULTI-VITAMIN PO) Take by mouth daily. Provider, MD Brian oxymetazoline (AFRIN NASAL SPRAY) 0.05 % Solution 2 Sprays by Nasal route 2 times daily. 11/09/18 Melonie Ochoa MD propranolol (INDERAL) 10 MG Tablet TAKE 1 TAB BY MOUTH 3 TIMES DAILY. NEEDED FOR ANXIETY 01/09/21Melonie Ochoa MD There are no discontinued medications. [...] Health Maintenance Due Topic Date Due ??? Pap Smear 09/13/2017 ??? Influenza Immunization (1) 12/12/2020 Orders Pended: n/a The following BPA's have been addressed with the patient today: N/A * Melonie Ochoa MD - 01/11/2021 10:45 AM CDT Subjective Chief Complaint Patient presents with ??? Results History of Present Illness Airam presents here for a followup visit. Her BP is well-controlled today at 122/74 mmHg. I started her on phentermine 15 mg daily on 11/12/2020, after her stress test, which came back negative on 10/12/2020. She took it for a whole month and then stopped because she did not have a refill. In that onemonth of taking phentermine 50 mg daily, she lost 9 pounds. She wants me to refill it. A refill wassent to her pharmacy, as it is effective for her. She reports having lost her mom recently, and she is going through grief reaction. She reports her depression symptoms are not under control. She does not want to do anything after she comes back from work and feels very drained. Her anxiety symptoms are under good control. She continues to take Prozac 10 mg daily. She wants the dose to be increased. I will increase it to Prozac 20 mg daily. She has started talking to her therapist again, which seems to be helpful. She denies having any suicidal thoughts. IJN: [id number] ROS: RESPIRATORY: Patient denies shortness of breath, chronic cough or other respiratory problems. CARDIAC: Patient denies chest pain, chest pressure, palpitations, diaphoresis, chest pain radiating into arms or neck. PMH/PSH/FH/SH/medications/allergies/health maintenance entries were reviewed with patient and updated. Objective: Physical Exam Vitals: 01/11/21 1052 BP: 122/74 Pulse: 75 Resp: 20 Temp: 97.7 ??F (36.5 ??C) SpO2: 98% Weight: 218 lb (98.9 kg) Height: 5' 6 (1.676 m) Body mass index is 35.19 kg/m??. Constitutional: She appears well-developed and well-nourished. No distress. HENT: Head: Atraumatic, normocephalic. Cardiovascular: Normal rate, regular rhythm, normal heart sounds and intact distal pulses. No murmur/rubs/gallops heard. Pulmonary/Chest: clear to auscultation bilaterally, no crepts or wheezes. Musculoskeletal/extremities: no pedal edema, no calf tenderness. Skin: Skin is warm and dry. Assessment and Plan Airam Munoz presents here for Results 1. Obesity (BMI 35.0-39.9 without comorbidity) - has lost 9 lb since starting phentermine in November. - Discontinued after a month as she did not have refill - restart Phentermine HCl 15 MG q.d. - stress test done on 10/12/2020 was negative. 2. Grief reaction 3. ARTHUR (generalized anxiety disorder) 4. Depression, unspecified depression type - her mom recently passed. She is getting therapy. - increase FLUoxetine (PROzac) 20 MG q.d. - anxiety symptoms well controlled. Rarely takes propranolol 10 mg t.i.d. p.r.n. Followup: Return in about 3 months (around 04/13/2021). The patient understood the plan, questions were answered and AVS including the updated medication list was provided to the patient. Documentation for this visit on 01/11/21 was completed using a template. I have seen and examined the patient. Everything documented was personally performed at this visit with the necessary additions, deletions and changes made as appropriate. This note was dictated using [employer]ott*Wishery fluency dictation system and there may be errors in architecture technician. Despite proof reading the note, there may be mistakes and I apologize for those. Melonie Ochoa MD documented in this encounter Plan of Treatment Upcoming Encounters Date Type Department Care Team (Late st Contact Info) Description 04/14/2024 7:00 AM ONLINE PROJECT MANAGER Appointment [facility] Mammography 1 [place] [address] Ravi Krishna MD 6810 [facility] [address] [address] 07/08/2024 9:30 AM CDT Office Visit [facility] - Pulmonology & Sleep Medicine [facility] #2 [place] [address] Abby Dinh APRN, FIBERGLASSER #[address] [address] documented as of this encounter Goals Goal Patient Goal Type Associated Problems Recent Progress Patient-Stated? Author Grief Behavioral Health On track( 021 3:59 PM CDT) Mary Jane Morris LCSW Note: Brigid will cope with grief more effectively Goal Reviewed with: patient Readiness to change: Ready to change Department associated with goal: [facility] Steps to achieve goal: [...] (BMI 35.0-39.9 without comorbidity)- Primary Obesity, unspecified Grief reaction Adjustment disorder with depressed mood ARTHUR (generalized anxiety disorder) Generalized anxiety disorder Depression, unspecified depression type documented in this encounter Additional Health Concerns Assessment Noted Time PHQ-9 Depression Total Score: 9 06/04/19 21 9:00 AM ONLINE PROJECT MANAGER documented as of this encounter Care Teams Distillery Supervisor Relationship Specialty Start Date End Date Melonie Ochoa MD PCP - General Family Medicine 11/12/18 02/16/23 Lucero Hood MD Obstetrics & Gynecology 03/20/16 documented as of this encounter
--- OUTSIDE RECORDS SUMMARY | 2024-04-11 00:49 | XMS_ITS | Encounter Summary ---
Author Organization [facility] Care Team Providers Care Negative Cleaner Name Role Phone Lucero Hood MD Unavailable Unavail able Melonie Ochoa MD Primary Care Provider Encounter Details Date Type Department Care Team (Latest Contact Info) Description 09/03/2020 Travel Social History Tobacco Use Types Packs/Day [...] Master's degree (e.g., MA, MS, Marcellus, MEd, INSURANCE AGENT, JOEY) 05/07/2020 Sexually Active Control Partners Comments [...] have Coronavirus / COVID-19? No / Unsure 09/03/2020 4:04 PM CDT documented as of this encounter Plan of Treatment Upcoming Encounters Date Type Department Care Team ( st Contact Info) Description 04/14/2024 7:00 AM SADDLE STITCHER Appointment [facility] Mammography 1 [place] [phone] Ravi Krishna MD [facility] [facility] 105 [place] [address] 07/08/2024 9:30 AM CDT Office Visit [facility] - Pulmonology & Sleep Medicine - [place] #2 [place] [address] Abby Dinh APRN, CASTING MACHINE SERVICE OPERATOR #2 [facility] 105 [place] [address] documented as of this encounter Visit Diagnoses Not on filedocumented in this encounter Additional Health Concerns Assessment Noted Time PHQ-9 Depression Total Score: 9 06/04/19 21 9:00 AM SADDLE STITCHER documented as of this encounter Care Teams Negative Cleaner Relationship Specialty Start Date End Date Melonie Ochoa MD PCP - General Family Medicine 11/12/18 02/16/23 Lucero Hood MD Obstetrics & Gynecology 03/20/16 documented as of this encounter
--- OUTSIDE RECORDS SUMMARY | 2024-04-11 00:49 | XMS_ITS | Encounter Summary ---
Author Organization [facility] Address [address] [place] [address] Phone Care Team Providers Care Solutions Market Consultant Name Role Phone Lucero Hood MD Unavailable Unavail Melonie Wheeler MD Primary Care Provider Reason for Visit * Reason Comments Depression * Auth/Cert Specialty Diagnoses / Procedures Referred By Yanni t Referred To Contact Referral ID Status Reason Start Date Expiration Date Visits Re quested Visits Authorized [id number] 1 1 Encounter Details Date Type Department Care Team (Latest Contact Info) Description 07/23/2020 4:00 PM CDT Outpatient Clinic [facility] 1 [place] [address] Malka Coreas, RN CARDIOLOGY #1 [place] [address] Major depressive disorder, recurrent episode with anxious [...] Master's degree (e.g., MA, MS, Marcellus, MEd, FREIGHT WEIGHER, JOEY) 05/07/2020 Sexually Active Control Partners Comments [...] have Coronavirus / COVID-19? No / Unsure 07/23/2020 3:49 PM CDT documented as of this encounter Progress Notes * Malka Coreas, RN CARDIOLOGY - 07/23/2020 4:00 PM CDT [facility] BEHAVIORAL HEALTH CLINICAL PROGRESS NOTE NAME: Airam Munoz AGE: 40 y.o. DATE OF : 1980 DATE OF SERVICE: 07/23/2020 START TIME: 4:00pm END TIME: 4:45pm DIAGNOSIS: 1. Major depressive disorder, recurrent episode with anxious distress (HCC) TREATMENT PLAN: Goals Addressed This Visit's Progress Behavioral Health ??? Behavioral Health (pt-stated) On track I need better strategies to manage my stress. Goal Reviewed with: patient today Readiness to change: Ready to change Department associated with goal: [facility] Steps to achieve goal: 1. will attend psychotherapy/counseling at least twice monthly and self disclose to have an outlet for distressing thoughts and feelings. 2. will identify at least two ways to engage in self expression and to gain relief from distressingemotions and thoughts. 3. will implement one other way, in addition to counseling, to engage in self expression and to gain relief from distressing emotions and thoughts. ??? Behavioral Health On track Brigid will manage symptoms of anxiety and depression more effectively to have reduction of anxiety and depression symptoms. Goal Reviewed with: patient today Readiness to change: Ready to change Department associated with goal: [facility] Steps to achieve goal: 1. to attend, at least twice monthly, counseling sessions. 2. to identify, verbalize and process at least three contributing factors/triggers to anxiety and depression. 3. T o identify at least two lifestyle changes/habits. 4. to put into action, at least one lifestyle change/habit, for one month or longer, to reduce and or cope with anxiety and depression. PROBLEM STATUS: Airam was seen today due to the following concerns: Depression: low self esteem/self image negative automatic thoughts/intrusive thoughts. Anxiety Stress related to over commitment and projects undertaken. She will be more selective about the projects she takes on. 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 Boundaries discussed. Based upon the presenting problem the following [...] utilizing them at appropriate times/when needed. Airam verbalized an understanding and responded well to interventions provided during treatment session. PROGRESS TOWARDS GOALS: Airam reported improvement of symptoms. MENTAL STATUS EXAM: Airam is motivated and open. Affect is appropriate to context. Mood is congruent to situation. There is no current suicidal ideation.. There is no current homicidal ideation.. TREATMENT RECOMMENDATIONS/FOLLOW UP: Recommendations for follow up treatment plan: Return for follow up in 2 weeks. MALKA COREAS LCSW documented in this encounter Plan of Treatment Upcoming Encounters Date Type Department Care Team (Late st Contact Info) Description 04/14/2024 7:00 AM QUALITY TESTER Appointment [facility] Mammography 1 [place] [address] Ravi Krishna MD [address] [address] 07/08/2024 9:30 AM CDT Office Visit [facility] - Pulmonology & Sleep Medicine [facility] #2 [place] [address] Abby Dinh APRN, REHAB CONSULTANT #[address] [address] documented as of this encounter Visit Diagnoses Diagnosis Major depressive disorder, recurrent episode with anxious distress (HCC)- Primary documented in this encounter Additional Health Concerns Assessment Noted Time PHQ-9 Depression Total Score: 9 06/04/19 21 9:00 AM QUALITY TESTER documented as of this encounter Care Teams Solutions Market Consultant Relationship Specialty Start Date End Date Melonie Ochoa MD PCP - General Family Medicine 11/12/18 02/16/23 Lucero Hood MD Obstetrics & Gynecology 03/20/16 documented as of this encounter
--- OUTSIDE RECORDS SUMMARY | 2024-04-11 00:49 | XMS_ITS | Encounter Summary ---
Author Organization [facility] Address [address] [place] [address] Phone Care Team Providers Care Dairy Nutritionist Name Role Phone Lucero Hood MD Unavailable Unavail able Melonie Ochoa MD Primary Care Provider [phone] Edna Yoder MD Primary Care Provider [phone] Abby Dinh APRN, BROWNING PROCESSOR Unavailable Reason for Visit * Reason Comments Medication Refill Encounter Details Date Type Department Care Team (Late st Contact Info) Description 09/16/2020 Refill [facility] - Primary Care - [place] [address] [place] [address] Kaity Blue APRN, BROWNING PROCESSOR [address] [place] [address] Medication Refill Social History Tobacco [...] Master's degree (e.g., MA, MS, Marcellus, MEd, SOILED LINEN DISTRIBUTOR, JOEY) 05/07/2020 Sexually Active Control Partners Comments [...] have Coronavirus / COVID-19? No / Unsure 09/15/2020 8:23 AM CDT documented as of this encounter Miscellaneous Notes * Telephone Encounter - Eugenie Thomas RN - 09/17/2020 8:30 AM CDT Per nursing clinical judgement, provider to review and approve the medication(s) order(s) if appropriate. Requested Prescriptions Pending Prescriptions Disp Refills propranolol (INDERAL) 10 MG Tablet [Pharmacy Med Name: PROPRANOLOL 10 MG TABLET] 90 Tablet 3 Sig: TAKE 1 TAB BY MOUTH 3 TIMES DAILY. NEEDED FOR ANXIETY Beta-Blockers Protocol Passed - 09/16/2020 12:24 AM Passed - BP on record in the past year Clinician-entered: BP Readings from Last 3 Encounters: 09/14/20 124/78 11/23/19 104/72 11/20/19 112/70 Patient-entered: No data recorded Passed - Visit with relevant provider in past 12 months or upcoming 90 days Recent Visits Date Type Provider Dept 09/14/20 Office Visit Melonie Ochoa MD [facility] [place] [address] 06/18/20 Telemedicine Melonie Ochoa MD [facility] [place] [address] 05/17/20 Telemedicine Melonie Ochoa MD [facility] [place] [address] 05/07/20 Telemedicine Kaity Blue APN, CNP [facility] [place] [address] 11/23/19 Office Visit Kaity Blue APN, CNP [facility] [place] [address] Showing recent visits within past 365 days and meeting all other requirements Future Appointments No visits were found meeting these conditions. Showing future appointments within next 90 days and meeting all other requirements documented in this encounter Plan of Treatment Upcoming Encounters Date Type Department Care Team (Late st Contact Info) Description 04/14/2024 7:00 AM ORTHOPAEDIC TECHNOLOGIST Appointment [facility] Mammography [address] [place] [address] Ravi Krishna MD [address] [facility] [address] [facility] 105 [place] [address] 07/08/2024 9:30 AM CDT Office Visit [facility] - Pulmonology & Sleep Medicine - [place] #[address] [place] [address] Abby Dinh APRN, BROWNING PROCESSOR #[address] [address] documented as of this encounter Visit Diagnoses Diagnosis ARTHUR (generalized anxiety disorder) Generalized anxiety disorder documented in this encounter Additional Health Concerns Assessment Noted Time PHQ-9 Depression Total Score: 9 06/04/19 21 9:00 AM ORTHOPAEDIC TECHNOLOGIST documented as of this encounter Care Teams Dairy Nutritionist Relationship Specialty Start Date End Date Melonie Ochoa MD PCP - General Family Medicine 11/12/18 02/16/23 Edna Yoder MD [facility] [place] [address] PCP - General Internal Medicine 02/17/23 Lucero Hood MD Obstetrics & Gynecology 03/20/16 Abby Dinh APRN, BROWNING PROCESSOR [address] [address] Nurse Practitioner Advanced Practice Nurse 02/21/22 documented as of this encounter
--- OUTSIDE RECORDS SUMMARY | 2024-04-11 00:49 | XMS_ITS | Encounter Summary ---
Author Organization [facility] Care Team Providers Care Testing And Regulating Chief Name Role Phone Lucero Hood MD Unavailable Unavail able Melonie Ochoa MD Primary Care Provider Encounter Details Date Type Department Care Team (Latest Contact Info) Description 12/07/2020 Travel Social History Tobacco Use Types Packs/Day [...] Master's degree (e.g., MA, MS, Marcellus, MEd, MULTIMEDIA EDUCATIONAL SPECIALIST, JOEY) 05/07/2020 Sexually Active Control Partners [...] have Coronavirus / COVID-19? No / Unsure 12/07/2020 3:46 PM CDT documented as of this encounter Plan of Treatment Upcoming Encounters Date Type Department Care Team ( st Contact Info) Description 04/14/2024 7:00 AM BANK OFFICER Appointment [facility] Mammography 1 [place] [phone] Ravi Krishna MD [address] [place] [address] 07/08/2024 9:30 AM CDT Office Visit [facility] - Pulmonology & Sleep Medicine - [place] [address]2 [place] [address] Abby Dinh APRN, TUBULAR STOCK GLASS BULB MACHINE FORMER #2 [facility] [address] [place] [address] documented as of this encounter Goals Goal Patient Goal Type Associated Problems Recent Progress Patient-Stated? Author Grief Behavioral Health On track( 021 3:59 PM CDT) Mary Jane Morris, KRISTA Note: Brigid will cope with grief more effectively Goal Reviewed with: patient Readiness to change: Ready to change Department associated with goal: [facility] Steps to achieve [...] Total Score: 9 06/04/19 21 9:00 AM BANK OFFICER documented as of this encounter Care Teams Testing And Regulating Chief Relationship Specialty Start Date End Date Melonie Ochoa MD PCP - General Family Medicine 11/12/18 02/16/23 Lucero Hood MD Obstetrics & Gynecology 03/20/16 documented as of this encounter
--- OUTSIDE RECORDS SUMMARY | 2024-04-11 00:49 | XMS_ITS | Encounter Summary ---
Author Organization [facility] Address [address] [address] Phone Care Team Providers Care Outside Sales Manager Name Role Phone Lucero Hood MD, Priya MD Primary Care Provider [phone] Reason for Referral * Consult, Test & Initiate Treatment (Routine) - Closed Specialty Diagnoses / Procedures Referred By Yanni weaver Referred To Contact Pulmonology Diagnoses Suspected sleep apnea Kaity Blue APRN, CNP [address] [place] [address] Phone: tel: fax: [facility] - Pulmonology & Sleep Medicine [facility] [place] [address] Phone: tel: fax: Referral ID Status Reason Start Date Expiration Date Visits Re quested Visits Authorized [id number] Closed 07/16/2021 1 1 Scheduling Instructions Airam is being referred for susp sleep apnea. ESS 9 Please contact patient for scheduling questions or concerns. Reason for Visit * Reason Comments Sleep Apnea Encounter Details Date Type Department Care Team ([facility] st Contact Info) Description 07/16/2021 3:00 PM CDT Telemedicine [facility] - Primary Care - [place] [address] [place] [phone] Kaity Blue APRN, MUD MIXER HELPER [address] [place] [address] Suspected sleep apnea (Primary Dx) Social History Tobacco Use Types [...] Master's degree (e.g., MA, MS, Marcellus, MEd, PRODUCT AMBASSADOR, JOEY) 05/07/2020 Sexually Active Control Partners Comments [...] suspected to have Coronavirus/COVID-19? No / Unsure 07/13/2021 1:58 PM CDT documented as of this encounter Patient Instructions * Patient Instructions* Kaity Blue APRN, CNP - 07/16/2021 3:00 PM CDT If any new or worsening symptoms occur, please call office. documented in this encounter Progress Notes * Kristine Mendez CMA - 07/16/2021 3:00 PM CDT Airam Munoz is on video visit for Sleep Apnea . Medications and allergies reconciled with Airam Munoz. * Kaity Blue APRN, CNP - 07/16/2021 3:00 PM CDT [facility] - FAMILY MEDICINE - [address] [address] Dept: [phone] Dept Loc: [phone] Loc Patient: Airam Munoz : 1980 Sex: female Subjective: Patient was assessed via online video for a duration of 8 minutes. Patient verbally consented for this service to be performed and billed. HPI: Airam Munoz presents for Sleep Apnea States that she has always snored but her has noticed apneic episodes. she is requesting a sleep study. States she can fall asleep easily, used to need to take 15min power naps in the middle of the day just to get through the day. ESS-9 ROS Fourteen point review of systems negative except as documented in HPI. Objective: There were no vitals filed for this visit. LMP 03/19/2020 (Approximate) Physical Exam Unable to obtain Medical Decision Making: Assessment & Plan Diagnoses and all orders for this visit: Suspected sleep apnea - PULMONARY REFERRAL; Future Other orders - FLUoxetine (PROzac) 20 MG Capsule; TAKE 1 CAPSULE BY MOUTH EVERY DAY F/u with pulm for suspected ROBERTO. Follow-up Information Return if symptoms worsen or fail to improve. documented in this encounter Plan of Treatment Upcoming Encounters Date Type Department Care Team (Late st Contact Info) Description 04/14/2024 7:00 AM SYSTEMS MECHANIC Appointment [facility] Mammography 1 [place] [address] Ravi Krishna MD [address] [facility] [place], [place] [phone] 07/08/2024 9:30 AM CDT Office Visit [facility] - Pulmonology & Sleep Medicine - [place] [address] [place] [address] Abby Dinh APRN, MUD MIXER HELPER [address] [place] [address] Scheduled Referrals Name Type Priority Associated Diagnoses Orde r Schedule PULMONARY REFERRAL Outpatient Referral Routine Suspected sleep apnea Expected: 07/16/2021, Expires: 07/16/2022 documented as of this encounter Goals Goal Patient Goal Type Associated Problems Recent Progress Patient-Stated? Author Grief Behavioral Health On track( 021 3:59 PM CDT) Mary Jane Morris LCSW Note: Brigid will cope with grief more effectively Goal Reviewed with: patient Readiness to change: Ready to change Department associated with goal: [facility] Steps to [...] Visit Diagnoses Diagnosis Suspected sleep apnea- Primary documented in this encounter Additional Health Concerns Assessment Noted Time PHQ-9 Depression Total Score: 9 06/04/19 21 9:00 AM SYSTEMS MECHANIC documented as of this encounter Care Teams Outside Sales Manager Relationship Specialty Start Date End Date Melonie Ochoa MD PCP - General Family Medicine 11/12/18 02/16/23 Lucero Hood MD Obstetrics & Gynecology 03/20/16 documented as of this encounter
--- OUTSIDE RECORDS SUMMARY | 2024-04-11 00:49 | XMS_ITS | Encounter Summary ---
Author Organization [facility] Address [address] [place] [address] Phone Care Team Providers Care Ict Support Engineer Name Role Phone Lucero Hood MD Unavailable Unavail able Melonie Ochoa MD Primary Care Provider [phone] Reason for Visit * Reason Comments Medication Refill Encounter Details Date Type Department Care Team (Late st Contact Info) Description 01/09/2021 Refill [facility] - Primary Care - [place] [address] [place] [address] Melonie Ochoa MD [address] [place] [address] Medication Refill Social History Tobacco [...] Master's degree (e.g., MA, MS, Marcellus, MEd, DEPARTMENT COORDINATOR, JOEY) 05/07/2020 Sexually Active Control Partners Comments Yes Male Comments No Sex and Gender Information Value Date Recorded Sex Assigned at Not on file Legal Sex Female 7:07 PM CDT Gender Identity Not on file Sexual Orientation Not on file documented as of this encounter Miscellaneous Notes * Telephone Encounter - Rae Lozoya RN - 01/09/2021 8:21 AM CDT Medication approved and signed per standing order protocol. documented in this encounter Plan of Treatment Upcoming Encounters Date Type Department Care Team (Late st Contact Info) Description 04/14/2024 7:00 AM AUTO WRECKER Appointment [facility] Mammography 1 [place] [address] Ravi Krishna MD [address] [address] [address] [facility] 105 [place] [address] 07/08/2024 9:30 AM CDT Office Visit [facility] - Pulmonology & Sleep Medicine - [place] [address]2 [place] [address] Abby Dinh APRN, DOG AND CAT FOOD COOK #2 [facility] [address] [place] [address] documented as of this encounter Goals Goal Patient Goal Type Associated Problems Recent Progress Patient-Stated? Author Grief Behavioral Health On track( 021 3:59 PM CDT) Mary Jane Morris, PAPETERIE TABLE ASSEMBLER Note: Brigid will cope with grief more [...] Total Score: 9 06/04/19 21 9:00 AM AUTO WRECKER documented as of this encounter Care Teams Ict Support Engineer Relationship Specialty Start Date End Date Melonie Ochoa MD PCP - General Family Medicine 11/12/18 02/16/23 Lucero Hood MD Obstetrics & Gynecology 03/20/16 documented as of this encounter
--- OUTSIDE RECORDS SUMMARY | 2024-04-11 00:49 | XMS_ITS | Encounter Summary ---
Author Organization [facility] Care Team Providers Care Program Consultant Name Role Phone Lucero Hood MD Unavailable Unavail able Melonie Ochoa MD Primary Care Provider [phone] Encounter Details Date Type Department Care Team (Latest Contact Info) Description 07/09/2020 Travel Social History Tobacco Use Types Packs/Day [...] Master's degree (e.g., MA, MS, Marcellus, MEd, V BELT BUILDER, JOEY) 05/07/2020 Sexually Active Control Partners [...] have Coronavirus / COVID-19? No / Unsure 07/09/2020 3:59 PM CDT documented as of this encounter Plan of Treatment Upcoming Encounters Date Type Department Care Team ( st Contact Info) Description 04/14/2024 7:00 AM SUPPORT ARCHITECT Appointment [facility] Mammography 1 [place] [address] Ravi Krishna MD [address] [facility] [address] [facility] 105 [place] [address] 07/08/2024 9:30 AM CDT Office Visit [facility] - Pulmonology & Sleep Medicine - [place] [address]2 [place] [address] Abby Dinh APRN, SPECIALIZED DEVELOPER #2 [facility] [address] [place] [address] documented as of this encounter Visit Diagnoses Not on filedocumented in this encounter Additional Health Concerns Assessment Noted Time PHQ-9 Depression Total Score: 9 06/04/19 21 9:00 AM SUPPORT ARCHITECT documented as of this encounter Care Teams Program Consultant Relationship Specialty Start Date End Date Melonie Ochoa MD PCP - General Family Medicine 11/12/18 02/16/23 Lucero Hood MD Obstetrics & Gynecology 03/20/16 documented as of this encounter
--- OUTSIDE RECORDS SUMMARY | 2024-04-11 00:49 | XMS_ITS | Encounter Summary ---
Author Organization [facility] Care Team Providers Care Trimming Machine Set Up Operator Name Role Phone Lucero Hood MD Unavailable Unavail able Melonie Ochoa MD Primary Care Provider [phone] Encounter Details Date Type Department Care Team (Latest Contact Info) Description 11/23/2020 Travel Social History Tobacco Use Types Packs/Day [...] Master's degree (e.g., MA, MS, Marcellus, MEd, TOOLMAKER, JOEY) 05/07/2020 Sexually Active Control Partners Comments [...] have Coronavirus / COVID-19? No / Unsure 11/23/2020 11:36 AM CDT documented as of this encounter Plan of Treatment Upcoming Encounters Date Type Department Care Team ( st Contact Info) Description 04/14/2024 7:00 AM BRAN MIXER Appointment [facility] Mammography 1 [place] [phone] Ravi Krishna MD [address] [facility] [address] [facility] 105 [place] [address] 07/08/2024 9:30 AM CDT Office Visit [facility] - Pulmonology & Sleep Medicine - [place] [address]2 [place] [address] Abby Dinh APRN, HOUSE FATHER #2 [facility] 105 [place] [address] documented as of this encounter Visit Diagnoses Not on filedocumented in this encounter Additional Health Concerns Assessment Noted Time PHQ-9 Depression Total Score: 9 06/04/19 21 9:00 AM BRAN MIXER documented as of this encounter Care Teams Trimming Machine Set Up Operator Relationship Specialty Start Date End Date Melonie Ochoa MD PCP - General Family Medicine 11/12/18 02/16/23 Lucero Hood MD Obstetrics & Gynecology 03/20/16 documented as of this encounter
--- OUTSIDE RECORDS SUMMARY | 2024-04-11 00:49 | XMS_ITS | Encounter Summary ---
Author Organization [facility] Address [address] [place] [address] Phone Care Team Providers Care General Operations Agent Name Role Phone Lucero Hood MD Unavailable Unavail able Melonie Ochoa MD Primary Care Provider Reason for Visit * Reason Comments Medication Refill Encounter Details Date Type Department Care Team (Late st Contact Info) Description 03/02/[address] [facility] - Primary Care - [place] [address] [place] [address] Melonie Ochoa MD [address] [place] [address] Medication Refill Social History Tobacco [...] Master's degree (e.g., MA, MS, Marcellus, MEd, ANODISER, JOEY) 05/07/2020 Sexually Active Control Partners Comments Yes Male Comments No Sex and Gender Information Value Date Recorded Sex Assigned at Not on file Legal Sex Female 7:07 PM CDT Gender Identity Not on file Sexual Orientation Not on file documented as of this encounter Miscellaneous Notes * Telephone Encounter - Judith Oquendo RN - 03/04/2021 9:35 AM CST Medication approved and signed per standing order protocol. CE MACHINERY OR EQUIPMENT INSTALLER documented in this encounter Plan of Treatment Upcoming Encounters Date Type Department Care Team (Late st Contact Info) Description 04/14/2024 7:00 AM OFFICE MACHINERY OR EQUIPMENT INSTALLER Appointment [facility] Mammography 1 [place] [address] Ravi Krishna MD [address] [facility] [address] [place] [address] 07/08/2024 9:30 AM CDT Office Visit [facility] - Pulmonology & Sleep Medicine - [place] [address]2 [place] [address] Abby Dinh APRN, SALES ATTENDANT BUILDING MATERIALS #2 [facility] [address] [place] [address] documented as of this encounter Goals Goal Patient Goal Type Associated Problems Recent Progress Patient-Stated? Author Grief Behavioral Health On track( 021 3:59 PM CDT) Mary Jane Morris, ADAPTED PHYSICAL EDUCATION AIDE Note: Brigid will cope with grief more effectively Goal Reviewed with: patient Readiness to change: Ready to change Department associated with goal: [facility] Steps to achieve [...] Total Score: 9 06/04/19 21 9:00 AM OFFICE MACHINERY OR EQUIPMENT INSTALLER documented as of this encounter Care Teams General Operations Agent Relationship Specialty Start Date End Date Melonie Ochoa MD PCP - General Family Medicine 11/12/18 02/16/23 Lucero Hood MD Obstetrics & Gynecology 03/20/16 documented as of this encounter
--- OUTSIDE RECORDS SUMMARY | 2024-04-11 00:49 | XMS_ITS | Encounter Summary ---
Author Organization [facility] Care Team Providers Care Sales Force Administrator Name Role Phone Lucero Hood MD Unavailable Unavail able Melonie Ochoa MD Primary Care Provider Encounter Details Date Type Department Care Team (Latest Contact Info) Description 01/11/2021 Travel Social History Tobacco Use Types Packs/Day [...] Master's degree (e.g., MA, MS, Marcellus, MEd, CULINARY WORKER, JOEY) 05/07/2020 Sexually Active Control Partners [...] st Contact Info) Description 04/14/2024 7:00 AM STUD MASTER/MISTRESS Appointment [facility] Mammography 1 [place] [address] Ravi Krishna MD [address] [place] [address] 07/08/2024 9:30 AM CDT Office Visit [facility] - Pulmonology & Sleep Medicine - [place] #2 [place] [address] Abby Dinh APRN, CERTIFIED WELLNESS PROGRAM COORDINATOR #2 [facility] [address] [place] [address] documented as of this encounter Goals Goal Patient Goal Type Associated Problems Recent Progress Patient-Stated? Author Grief Behavioral Health On track( 021 3:59 PM CDT) Mary Jane Morris, KRISTA Note: Brigid will cope with grief more effectively Goal Reviewed with: patient Readiness to change: Ready to change Department associated with goal: [facility] Steps [...] Total Score: 9 06/04/19 21 9:00 AM STUD MASTER/MISTRESS documented as of this encounter Care Teams Sales Force Administrator Relationship Specialty Start Date End Date Melonie Ochoa MD PCP - General Family Medicine 11/12/18 02/16/23 Lucero Hood MD Obstetrics & Gynecology 03/20/16 documented as of this encounter
--- OUTSIDE RECORDS SUMMARY | 2024-04-11 00:49 | XMS_ITS | Encounter Summary ---
Author Organization [facility] Address [address] [place] [address] Phone Care Team Providers Care Janitor Supervisor Name Role Phone Lucero Hood MD Unavailable Unavail able Melonie Ochoa MD Primary Care Provider Reason for Visit * Reason Comments Immunization/Injection Encounter Details Date Type Department Care Team ([facility] st Contact Info) Description 11/23/2020 1:[address] [facility] - Primary Care - [address] [address] [facility] Encounter for immunization (Primary Dx) Discharge Disposition: Discharged to home [...] Master's degree (e.g., MA, MS, Marcellus, MEd, LIFE CONSULTANT, JOEY) 05/07/2020 Sexually Active Control Partners Comments [...] AM CDT documented as of this encounter Progress Notes * Rae Lozoya RN - 11/23/2020 1:00 PM CDT Airam is here for immunizations per order of Dr. Wilhelm dated 11/23/20. Vaccine Information Sheet(s)were given on 11/23/20. Verbal consent was obtained. Airam tolerated the immunization well withoutincident. See Immunization activity for details. documented in this encounter Plan of Treatment Upcoming Encounters Date Type Department Care Team (Late st Contact Info) Description 04/14/2024 7:00 AM PUSHCART PEDDLER Appointment [facility] Mammography 1 [place] [address] Ravi Krishna MD [address] [facility] [address] [address] 07/08/2024 9:30 AM CDT Office Visit [facility] - Pulmonology & Sleep Medicine [facility] #2 [place] [address] Abby Dinh APRN, REELING AND TUBING MACHINE OPERATOR #[address] [address] documented as of this encounter Visit Diagnoses Diagnosis Encounter for immunization- Primary Need for other specified prophylactic vaccination against single bacterial disease documented in this encounter Additional Health Concerns Assessment Noted Time PHQ-9 Depression Total Score: 9 06/04/19 21 9:00 AM PUSHCART PEDDLER documented as of this encounter Care Teams Janitor Supervisor Relationship Specialty Start Date End Date Melonie Ochoa MD PCP - General Family Medicine 11/12/18 02/16/23 Lucero Hood MD Obstetrics & Gynecology 03/20/16 documented as of this encounter
--- OUTSIDE RECORDS SUMMARY | 2024-04-11 00:49 | XMS_ITS | Encounter Summary ---
Author Organization [facility] [employer] Care Team Providers Care Oil Burner Mechanic Name Role Phone Lucero Hood MD Unavailable Unavail able Melonie Ochoa MD Primary Care Provider [phone] Encounter Details Date Type Department Care Team (Latest Contact Info) Description 07/13/2021 Travel Social History Tobacco Use Types Packs/Day [...] Master's degree (e.g., MA, MS, Marcellus, MEd, HAND ASSEMBLER, JOEY) 05/07/2020 Sexually Active Control Partners Comments [...] st Contact Info) Description 04/14/2024 7:00 AM CORDWAINER Appointment [facility] Mammography 1 [place] [phone] Ravi Krishna MD [address] [facility] [address] [place] [address] 07/08/2024 9:30 AM CDT Office Visit [facility] - Pulmonology & Sleep Medicine - [place] #[address] [place] [address] Abby Dinh APRN, ADDRESS CHANGE CLERK #2 [facility] 105 [place] [address] documented as of this encounter Goals Goal Patient Goal Type Associated Problems Recent Progress Patient-Stated? Author Grief Behavioral Health On track( 021 3:59 PM CDT) Mary Jane Morris, KRISTA Note: Brigid will cope with grief more effectively Goal Reviewed with: patient Readiness to change: Ready to change Department associated with goal: [facility] BE[facility] Steps [...] Total Score: 9 06/04/19 21 9:00 AM CORDWAINER documented as of this encounter Care Teams Oil Burner Mechanic Relationship Specialty Start Date End Date Melonie Ochoa MD PCP - General Family Medicine 11/12/18 02/16/23 Lucero Hood MD Obstetrics & Gynecology 03/20/16 documented as of this encounter
--- OUTSIDE RECORDS SUMMARY | 2024-04-11 00:49 | XMS_ITS | Encounter Summary ---
Author Organization [facility] Address [address] [place] [address] Phone Care Team Providers Care Continuity Coordinator Name Role Phone Lucero Hood MD Unavailable Unavail able Melonie Ochoa MD Primary Care Provider [phone] Reason for Visit * Reason Comments Medication Refill Encounter Details Date Type Department Care Team (Late st Contact Info) Description 07/16/2021 Refill [facility] - Primary Care - [place] [address] [place] [address] Melonie Ochoa MD [address] [place] [address] Medication Refill Social History Tobacco [...] Master's degree (e.g., MA, MS, Marcellus, MEd, BURR BENCH OPERATOR, JOEY) 05/07/2020 Sexually Active Control Partners [...] Telephone Encounter - Eugenie Thomas RN - 07/22/2021 4:09 PM CDT Called patient and scheduled OV 07/25/2021. * Telephone Encounter - Eugenie Thomas RN - 07/19/2021 1:23 PM CDT Attempted to call patient to schedule OV with PCP, no answer at this time. Left message to call back. * Telephone Encounter - Melonie Ochoa MD - 07/18/2021 11:09 PM CDT Need f/u appt as recommended at last OV. * Telephone Encounter - Eugenie Thomas RN - 07/16/2021 11:08 AM CDT Medication failed the protocol, provider to review and approve the medication order if appropriate. Requested Prescriptions Pending Prescriptions Disp Refills FLUoxetine (PROzac) 20 MG Capsule [Pharmacy Med Name: FLUOXETINE HCL 20 MG CAPSULE] 30 Capsule 5 Sig: TAKE 1 CAPSULE BY MOUTH EVERY DAY SSRI (6 Month Refill Only) Protocol Failed - 07/16/2021 11:01 AM Failed - Active on medication list Failed - Has an encounter in the past 6 months with a depression, anxiety, adjustment disorder, OCD, or PTSD visit diagnosis Passed - Visit with relevant provider in past 6 months or upcoming 90 days Recent Visits No visits were found meeting these conditions. Showing recent visits within past 182 days and meeting all other requirements Today's Visits Date Type Provider Dept 04/05/22 Appointment Kaity Blue APRN, BAG BUILDER [facility] Showing today's visits and meeting all other requirements Future Appointments No visits were found meeting these conditions. Showing future appointments within next 90 days and meeting all other requirements Passed - Patient has established therapy with SSRI for at least 6 months documented in this encounter Plan of Treatment Upcoming Encounters Date Type Department Care Team (Late st Contact Info) Description 04/14/2024 7:00 AM GENERATOR WORKER Appointment [facility] Mammography 1 [place] [address] Ravi Krishna MD [address] [facility] 162 [facility] 105 [place] [address] 07/08/2024 9:30 AM CDT Office Visit [facility] - Pulmonology & Sleep Medicine - [place] #2 [place] [address] Abby Dinh APRN, BAG BUILDER #2 [facility] 105 [place] [address] documented as of this encounter Goals Goal Patient Goal Type Associated Problems Recent Progress Patient-Stated? Author Grief Behavioral Health On track( 021 3:59 PM CDT) Mary Jane Morris, WASTE COTTON CLEANER Note: Brigid will cope with grief more [...] Total Score: 9 06/04/19 21 9:00 AM GENERATOR WORKER documented as of this encounter Care Teams Continuity Coordinator Relationship Specialty Start Date End Date Melonie Ochoa MD PCP - General Family Medicine 11/12/18 02/16/23 Lucero Hood MD Obstetrics & Gynecology 03/20/16 documented as of this encounter
--- OUTSIDE RECORDS SUMMARY | 2024-04-11 00:49 | XMS_ITS | Encounter Summary ---
Author Organization [facility] Care Team Providers Care Digital Account Director Name Role Phone Lucero Hood MD Unavailable Unavail able Melonie Ochoa MD Primary Care Provider Encounter Details Date Type Department Care Team (Latest Contact Info) Description 01/09/2021 Travel Social History Tobacco Use Types Packs/Day [...] Master's degree (e.g., MA, MS, Marcellus, MEd, WATER SERVER, JOEY) 05/07/2020 Sexually Active Control Partners Comments [...] st Contact Info) Description 04/14/2024 7:00 AM DIET CLERK Appointment [facility] Mammography 1 [place] [address] Ravi Krishna MD [address] [place] [address] 07/08/2024 9:30 AM CDT Office Visit [facility] - Pulmonology & Sleep Medicine - [place] #2 [place] [address] Abby Dinh APRN, NEUROSURGERY SPINE PHYSICIAN #2 [facility] 105 [place] [address] documented as of this encounter Goals Goal Patient Goal Type Associated Problems Recent Progress Patient-Stated? Author Grief Behavioral Health On track( 021 3:59 PM CDT) Mary Jane Morris, KRISTA Note: Brigid will cope with grief more effectively Goal Reviewed with: patient Readiness to change: Ready to change Department associated with goal: [facility] Steps to achieve goal: [...] Total Score: 9 06/04/19 21 9:00 AM DIET CLERK documented as of this encounter Care Teams Digital Account Director Relationship Specialty Start Date End Date Melonie Ochoa MD PCP - General Family Medicine 11/12/18 02/16/23 Lucero Hood MD Obstetrics & Gynecology 03/20/16 documented as of this encounter
--- OUTSIDE RECORDS SUMMARY | 2024-04-11 00:49 | XMS_ITS | Encounter Summary ---
Author Organization [facility] Address [address] [place] [place] [address] Phone Care Team Providers Care Security Public Safety Officer Name Role Phone Lucero Hood MD Unavailable Unavail Melonie Wheeler MD Primary Care Provider [phone] Reason for Visit * Reason Comments Depression * Auth/Cert Specialty Diagnoses / Procedures Referred By Yanni t Referred To Contact Referral ID Status Reason Start Date Expiration Date Visits Re quested Visits Authorized [id number] 1 1 Encounter Details Date Type Department Care Team (Latest Contact Info) Description 08/06/2020 4:00 PM CDT Outpatient Clinic Visit [facility]al Health Services 1 [place] [phone] Malka Coreas, TOOL ANALYST #1 [place] [address] Major depressive disorder, recurrent episode with anxious distress (HCC) (Primary Dx); ARTHUR (generalized anxiety disorder) Discharge Disposition: Discharged to home or Selfcare [...] Master's degree (e.g., MA, MS, Marcellus, MEd, HOG COUNTER, JOEY) 05/07/2020 Sexually Active Control Partners Comments [...] have Coronavirus / COVID-19? No / Unsure 08/06/2020 3:52 PM CDT documented as of this encounter Progress Notes * Malka Coreas, TOOL ANALYST - 08/06/2020 4:00 PM CDT [facility] CLINICAL PROGRESS NOTE NAME: Airam Munoz AGE: 40 y.o. DATE OF : 1980 DATE OF SERVICE: 08/06/2020 START TIME: 4:00pm END TIME: 4:45pm DIAGNOSIS: 1. Major depressive disorder, recurrent episode with anxious distress (HCC) 2. ARTHUR (generalized anxiety disorder) TREATMENT PLAN: Goals Addressed This Visit's Progress Behavioral Health ??? Behavioral Health (pt-stated) On track I need better strategies to manage my stress. Goal Reviewed with: patient today Readiness to change: Ready to change Department associated with goal: [facility] Steps [...] Ready to change Department associated with goal: [facility] Steps [...] related to over commitment and projects undertaken. Brigid has determined the criteria for deciding when to take on a project and when she should pass on the project. Summer school and summer projects discussed. Based upon the presenting problem the [...] st Contact Info) Description 04/14/2024 7:00 AM FUSING LINE INSPECTOR Appointment [facility] Mammography 1 [place] [address] Ravi Krishna MD [address] [facility] [address] [place], [place] [phone] 07/08/2024 9:30 AM CDT Office Visit [facility] - Pulmonology & Sleep Medicine [facility] #2 [place] [address] Abby Dinh APRN, CAR HEAD LINER INSTALLER #[address] [address] documented as of this encounter Visit Diagnoses Diagnosis Major depressive disorder, recurrent episode with anxious distress (HCC)- Primary ARTHUR (generalized anxiety disorder) Generalized anxiety disorder documented in this encounter Additional Health Concerns Assessment Noted Time PHQ-9 Depression Total Score: 9 06/04/19 21 9:00 AM FUSING LINE INSPECTOR documented as of this encounter Care Teams Security Public Safety Officer Relationship Specialty Start Date End Date Melonie Ochoa MD PCP - General Family Medicine 11/12/18 02/16/23 Lucero Hood MD Obstetrics & Gynecology 03/20/16 documented as of this encounter
--- OUTSIDE RECORDS SUMMARY | 2024-04-11 00:49 | XMS_ITS | Encounter Summary ---
Author Organization [facility] Care Team Providers Care Dog Daycare Provider Name Role Phone Lucero Hood MD Unavailable Unavail able Melonie Ochoa MD Primary Care Provider [phone] Encounter Details Date Type Department Care Team (Latest Contact Info) Description 07/23/2020 Travel Social History Tobacco Use Types Packs/Day [...] Master's degree (e.g., MA, MS, Marcellus, MEd, RETOUCHING OPERATOR, JOEY) 05/07/2020 Sexually Active Control Partners [...] st Contact Info) Description 04/14/2024 7:00 AM RANGE TECHNICIAN Appointment [facility] Mammography 1 [place] [phone] Ravi Krishna MD [address] [facility] 162 [facility] 105 [place] [address] 07/08/2024 9:30 AM CDT Office Visit [facility] - Pulmonology & Sleep Medicine - [place] #2 [place] [address] Abby Dinh APRN, PACKING LINE OPERATOR #2 [facility] 105 [place] [address] documented as of this encounter Visit Diagnoses Not on filedocumented in this encounter Additional Health Concerns Assessment Noted Time PHQ-9 Depression Total Score: 9 06/04/19 21 9:00 AM RANGE TECHNICIAN documented as of this encounter Care Teams Dog Daycare Provider Relationship Specialty Start Date End Date Melonie Ochoa MD PCP - General Family Medicine 11/12/18 02/16/23 Lucero Hood MD Obstetrics & Gynecology 03/20/16 documented as of this encounter
--- OUTSIDE RECORDS SUMMARY | 2024-04-11 00:49 | XMS_ITS | Encounter Summary ---
Author Organization [facility] Address [address] [place] [address] Phone Care Team Providers Care Spool Maker Name Role Phone Lucero Hood MD Unavailable Unavail able Melonie Ochoa MD Primary Care Provider [phone] Edna Yoder MD Primary Care Provider [phone] Abby Dinh APRN, AMANDEEP Unavailable Reason for Visit * Reason Comments Medication Refill Encounter Details Date Type Department Care Team (Late st Contact Info) Description 08/19/2020 Refill [facility] - Primary Care - [place] [address] [place] [address] Melonie Ochoa MD [address] [place] [address] Medication Refill Social History Tobacco [...] Master's degree (e.g., MA, MS, Marcellus, MEd, FLOOR SUPERVISOR, JOEY) 05/07/2020 Sexually Active Control Partners Comments [...] have Coronavirus / COVID-19? No / Unsure 08/20/2020 3:47 PM CDT documented as of this encounter Miscellaneous Notes * Telephone Encounter - Rae Lozoya RN - 08/20/2020 9:23 AM CDT Medication failed the protocol, provider to review and approve the medication order if appropriate. Requested Prescriptions Pending Prescriptions Disp Refills FLUoxetine (PROzac) 10 MG Capsule [Pharmacy Med Name: FLUOXETINE HCL 10 MG CAPSULE] 30 Capsule 2 Sig: TAKE 1 CAPSULE BY MOUTH EVERY DAY [facility] Not Delegated - Psychiatry: Antidepressants Failed - 08/19/2020 12:05 AM Failed - This refill cannot be delegated Passed - Valid encounter within last 12 months Past Office Visits Recent Outpatient Visits 2 months ago ARTHUR (generalized anxiety disorder) [facility] Melonie Ochoa MD 3 months ago ARTHUR (generalized anxiety disorder) [facility] Melonie Ochoa MD 3 months ago ARTHUR (generalized anxiety disorder) [facility] Kaity Blue FEED MIXER HELPER, CASHIER SUPERVISOR 9 months ago Preventative health care (Adult) [facility] Kaity Blue FEED MIXER HELPER, CASHIER SUPERVISOR 1 year ago Physical exam, annual (Adult) [facility] Melonie Ochoa MD Upcoming Appointments Future Appointments Today [facility] Norman [facility]CS[facility] In 2 weeks Mary Jane Norman LCSW [facility] In 3 months [facility] In 4 months Melonie Ochoa MD [facility], [place] CEMENTER MACHINE JOINER - Recent and Past Visits Recent Visits Date Type Provider Dept 06/18/20 Telemedicine Melonie Ochoa MD [facility] 05/17/20 Telemedicine Melonie Ochoa MD [facility] 05/07/20 Telemedicine Kaity Blue APN, CNP [facility] 11/23/19 Office Visit Kaity Blue APN, CNP [facility] Showing recent visits within past 460 days with a meds authorizing provider and meeting all other requirements Future Appointments No visits were found meeting these conditions. Showing future appointments within next 90 days with a meds authorizing provider and meeting all other requirements documented in this encounter Plan of Treatment Upcoming Encounters Date Type Department Care Team (Late st Contact Info) Description 04/14/2024 7:00 AM CLINICAL PSYCHOLOGIST LICENSED [facility]ment [facility] 1 [place] [address] Ravi Krishna MD [address] [address] 07/08/2024 9:30 AM CDT Office Visit [facility] - Pulmonology & Sleep Medicine [facility] #2 [place] [address] Abby Dinh APRN, CASHIER SUPERVISOR #[address] [address] documented as of this encounter Visit Diagnoses Diagnosis ARTHUR (generalized anxiety disorder) Generalized anxiety disorder Depression, unspecified depression type documented in this encounter Additional Health Concerns Assessment Noted Time PHQ-9 Depression Total Score: 9 06/04/19 21 9:00 AM CLINICAL PSYCHOLOGIST LICENSED documented as of this encounter Care Teams Spool Maker Relationship Specialty Start Date End Date Melonie Ochoa MD PCP - General Family Medicine 11/12/18 02/16/23 Edna Yoder MD [facility] [place] [address] PCP - General Internal Medicine 02/17/23 Lucero Hood MD Obstetrics & Gynecology 03/20/16 Abby Dinh, STOCKROOM INVENTORY CLERK, CASHIER SUPERVISOR #[address] [address] Nurse Practitioner Advanced Practice Nurse 02/21/22 documented as of this encounter
--- OUTSIDE RECORDS SUMMARY | 2024-04-11 00:49 | XMS_ITS | Encounter Summary ---
Author Organization [facility] Care Team Providers Care Daily Sales Audit Clerk Name Role Phone Lucero Hood MD Unavailable Unavail able Melonie Ochoa MD Primary Care Provider Encounter Details Date Type Department Care Team (Latest Contact Info) Description 08/20/2020 Travel Social History Tobacco Use Types Packs/Day [...] Master's degree (e.g., MA, MS, Marcellus, MEd, ROOMING HOUSE KEEPER, JOEY) 05/07/2020 Sexually Active Control Partners Comments [...] st Contact Info) Description 04/14/2024 7:00 AM WATER TENDER Appointment [facility] Mammography 1 [place] [phone] Ravi Krishna MD [address] [facility] 162 [facility] 105 [place] [address] 07/08/2024 9:30 AM CDT Office Visit [facility] - Pulmonology & Sleep Medicine - [place] #2 [place] [address] Abby Dinh APRN, OSTOMY RN #2 [facility] 105 [place] [address] documented as of this encounter Visit Diagnoses Not on filedocumented in this encounter Additional Health Concerns Assessment Noted Time PHQ-9 Depression Total Score: 9 06/04/19 21 9:00 AM WATER TENDER documented as of this encounter Care Teams Daily Sales Audit Clerk Relationship Specialty Start Date End Date Melonie Ochoa MD PCP - General Family Medicine 11/12/18 02/16/23 Lucero Hood MD Obstetrics & Gynecology 03/20/16 documented as of this encounter
--- OUTSIDE RECORDS SUMMARY | 2024-04-11 00:49 | XMS_ITS | Encounter Summary ---
Author Organization [facility] Address [address] [place] [address] Phone Care Team Providers Care Emergency Department Name Role Phone Lucero Hood MD Unavailable Unavail able Melonie Ochoa MD Primary Care Provider Reason for Visit * Reason Comments Medication Refill Encounter Details Date Type Department Care Team (Late st Contact Info) Description 07/10/2021 Refill [facility] - Primary Care - [place] [address] [place] [address] Melonie Ochoa MD [address] [place] [address] Medication Refill Social History Tobacco [...] Master's degree (e.g., MA, MS, Marcellus, MEd, GRINDER SET UP OPERATOR JIG, JOEY) 05/07/2020 Sexually Active Control Partners Comments Yes Male Comments No Sex and Gender Information Value Date Recorded Sex Assigned at Not on file Legal Sex Female 7:07 PM CDT Gender Identity Not on file Sexual Orientation Not on file documented as of this encounter Miscellaneous Notes * Telephone Encounter - Judith Oquendo RN - 07/10/2021 9:09 AM CDT Medication approved and signed per standing order protocol. documented in this encounter Plan of Treatment Upcoming Encounters Date Type Department Care Team (Late st Contact Info) Description 04/14/2024 7:00 AM ENTRY LEVEL PROJECT ENGINEER Appointment [facility] Mammography 1 [place] [address] Ravi Krishna MD [address] [facility] [address] [facility] 105 [place] [address] 07/08/2024 9:30 AM CDT Office Visit [facility] - Pulmonology & Sleep Medicine - [place] #2 [place] [address] Abby Dinh APRN, PLUMBING SERVICE TECHNICIAN #2 [facility] 105 [place] [address] documented as of this encounter Goals Goal Patient Goal Type Associated Problems Recent Progress Patient-Stated? Author Grief Behavioral Health On track( 021 3:59 PM CDT) Mary Jane Morris, TYPING SECTION CHIEF Note: Brigid will cope with grief more effectively Goal Reviewed with: patient Readiness to change: Ready to change Department associated with goal: [facility] Steps to achieve [...] Total Score: 9 06/04/19 21 9:00 AM ENTRY LEVEL PROJECT ENGINEER documented as of this encounter Care Teams Emergency Department Relationship Specialty Start Date End Date Melonie Ochoa MD PCP - General Family Medicine 11/12/18 02/16/23 Lucero Hood MD Obstetrics & Gynecology 03/20/16 documented as of this encounter
--- OUTSIDE RECORDS SUMMARY | 2024-04-11 00:49 | XMS_ITS | Encounter Summary ---
Author Organization [facility] Care Team Providers Care Straw Hat Machine Operator Name Role Phone Lucero Hood MD Unavailable Unavail able Melonie Ochoa MD Primary Care Provider [phone] Encounter Details Date Type Department Care Team (Latest Contact Info) Description 08/06/2020 Travel Social History Tobacco Use Types Packs/Day [...] Master's degree (e.g., MA, MS, Marcellus, MEd, SKATESMAN, JOEY) 05/07/2020 Sexually Active Control Partners Comments [...] st Contact Info) Description 04/14/2024 7:00 AM SCALLOP CUTTER MACHINE Appointment [facility] Mammography 1 [place] [phone] Ravi Krishna MD [address] [facility] 162 [facility] 105 [place] [address] 07/08/2024 9:30 AM CDT Office Visit [facility] - Pulmonology & Sleep Medicine - [place] #2 [place] [address] Abby Dinh APRN, SPA RECEPTIONIST #2 [facility] 105 [place] [address] documented as of this encounter Visit Diagnoses Not on filedocumented in this encounter Additional Health Concerns Assessment Noted Time PHQ-9 Depression Total Score: 9 06/04/19 21 9:00 AM SCALLOP CUTTER MACHINE documented as of this encounter Care Teams Straw Hat Machine Operator Relationship Specialty Start Date End Date Melonie Ochoa MD PCP - General Family Medicine 11/12/18 02/16/23 Lucero Hood MD Obstetrics & Gynecology 03/20/16 documented as of this encounter
--- OUTSIDE RECORDS SUMMARY | 2024-04-11 00:49 | XMS_ITS | Encounter Summary ---
Author Organization [facility] Address [address] [place] [address] Phone Care Team Providers Care Historian Dramatic Arts Name Role Phone Lucero Hood MD Unavailable Unavail able Melonie Ochoa MD Primary Care Provider Reason for Visit * Reason Comments Weight Management Encounter Details Date Type Department Care Team (Late st Contact Info) Description 09/14/2020 10:45 AM CDT Office Visit [facility] - Primary Care - [place] [address] [place] [phone] Melonie Ochoa MD [address] [place] [address] Obesity (BMI 35.0-39.9 without comorbidity) (Primary Dx); ARTHUR (generalized anxiety disorder); Depression, [...] Master's degree (e.g., MA, MS, Marcellus, MEd, GUEST ROOM INSPECTOR, JOEY) 05/07/2020 Sexually Active Control Partners [...] have Coronavirus / COVID-19? No / Unsure 09/13/2020 7:06 PM CDT documented as of this encounter Last Filed Vital Signs Vital Sign Reading Time Taken Comments Blood Pressure 124/78 09/14/2020 10:40 AM CDT Pulse 72 09/14/2020 10:40 AM CDT Temperature 36.4 ??C (97.6 ??F) 09/14/2020 1 0:40 AM CDT Respiratory Rate 20 09/14/2020 10:4 0 AM CDT Oxygen Saturation 98% 09/14/2020 10: 40 AM CDT Inhaled Oxygen Concentration - - Weight 103.2 kg (227 lb 9.6 oz) 021 10:40 AM CDT Height 167.6 cm (5' 6 ) 09/14/2020 10:4 0 AM CDT Body Mass Index 36.74 09/14/2020 10:40 AM CDT documented in this encounter Progress Notes * Nica Robles, VLADIMIR - 09/14/2020 10:45 AM CDT Airam Yuriy Munoz, 40 y.o., female is here for Weight Management Medication Refills: Patient reports/denies need for medication [...] TAKE 1 CAPSULE BY MOUTH EVERY DAY 08/20/20 Melonie Ochoa MD fluticasone (FLONASE) 50 MCG/ACT Suspension 2 Sprays by Nasal route daily. Use in each nostril as directed. 11/09/18 Melonie Ochoa MD Multiple Vitamin (MULTI-VITAMIN PO) Take by mouth daily. Provider, MD Brian oxymetazoline (AFRIN NASAL SPRAY) 0.05 % Solution 2 Sprays by Nasal route 2 times daily. 11/09/18 Melonie Ochoa MD propranolol (INDERAL) 10 MG Tablet Take 1 Tab by mouth 3 times daily as needed. As needed for anxiety 05/17/20 Melonie Ochoa MD There are no discontinued [...] Topic Date Due ??? Pap Smear 09/13/2017 Orders Pended: n/a The following BPA's have been addressed with the patient today: N/A * Melonie Ochoa MD - 09/14/2020 10:45 AM CDT Subjective Chief Complaint Patient presents with ??? Weight Management History of Present Illness Aiarm presents here to discuss about her weight. She reports eating healthy and has been exercising regularly. She has recently started the [employer] geovanna, that which she gets psychologic counseling, and she reads articles, and has been working with a development coach. With all of this, she has lost 10 pounds since her last visit in November of 2019. Her current BMI is 36.74. She wants to start on a weight loss medication. She denies having any chest pain, shortness of breath, palpitations, prior history of SC. We got an EKG in the office today, which showed age undetermined, possible anterior infarct, so I will get a stress test. And then, we will start her on a weight loss medication. Syeda given her the names of Contrave, Qsymia, Saxenda, and phentermine to check prices with her insurance. IJN: [id number] ROS: RESPIRATORY: Patient denies shortness of breath, chronic cough or other respiratory problems. CARDIAC: Patient denies chest pain, chest pressure, palpitations, diaphoresis, chest pain radiating into arms or neck. PMH/PSH/FH/SH/medications/allergies/health maintenance entries were reviewed with patient and updated. Objective: Physical Exam Vitals: 09/14/20 1040 BP: 124/78 Pulse: 72 Resp: 20 Temp: 97.6 ??F (36.4 ??C) SpO2: 98% Weight: 227 lb 9.6 oz (103.2 kg) Height: 5' 6 (1.676 m) Body mass index is 36.74 kg/m??. Constitutional: She appears well-developed and well-nourished. No distress. HENT: Head: Atraumatic, normocephalic. Cardiovascular: Normal rate, regular rhythm, normal heart sounds and intact distal pulses. No murmur/rubs/gallops heard. Pulmonary/Chest: clear to auscultation bilaterally, no crepts or wheezes. Musculoskeletal/extremities: no pedal edema, no calf tenderness. Skin: Skin is warm and dry. Assessment and Plan Airam Munoz presents here for Weight Management 1. Obesity (BMI 35.0-39.9 without comorbidity) - EKG 12 LEAD - abnormal with age undetermined anterior infarct - recommend getting a treadmill stress echo - on NOOM which has helped her lose 10 lb since last visit. Continue healthy diet and exercise - will start her on phentermine, if stress test is negative. 2. ARTHUR (generalized anxiety disorder) 3. Depression, unspecified depression type - symptoms well controlled with Prozac 10 mg q.d. Followup: Return for regular scheduled f/u OV. The patient understood the plan, questions were answered and AVS including the updated medication list was provided to the patient. Documentation for this visit on 09/14/20 was completed using a template. I have seen and examined the patient. Everything documented was personally performed at this visit with the necessary additions, deletions and changes made as appropriate. This note was dictated using M*VideoPros fluency dictation system and there may be errors in inspector agricultural commodities. Despite proof reading the note, there may be mistakes and I apologize for those. Melonie Ochoa MD documented in this encounter Plan of Treatment Upcoming Encounters Date Type Department Care Team (Late st Contact Info) Description 04/14/2024 7:00 AM FORM MAKER PLASTER Appointment [facility] Mammography 1 [place] [address] Ravi Krishna MD [address] [facility] [address] [facility] [address] [place] [address] 07/08/2024 9:30 AM CDT [facility] [address] [place] [address] Abby Dinh APRN, DECKHAND FISHING VESSEL [address]2 [facility] [address] [place] [address] documented as of this encounter Procedures Procedure Name Priority Date/Time Associated Diagnosis Comments EKG 12 LEAD Routine 09/14/2020 11:44 AM CDT Obesity (BMI 35.0-39.9 without comorbidity) documented in this encounter Results * THYROID STIMULATING HORMONE (TSH) (09/15/2020 8:47 AM CDT) TSH 2.170 0.270 - 4.200 mIU/L 09/15/2020 9:54 AM CDT [facility] Blood Venipuncture / Unknown 09/15/2020 8:47 AM CDT 09/15/2020 8:56 AM CDT us Melonie Ochoa MD CHEMISTRY ORDERABLES Final R esult [facility] [address] [place] [address] * THYROXINE (T4) FREE (09/15/2020 8:47 AM CDT) [facility] T4 FREE 1.1 0.9 - 1.7 ng/dL 09/15/2020 9:54 AM CDT [facility] Blood Venipuncture / Unknown 09/15/2020 8:47 AM CDT 09/15/2020 8:56 AM CDT us Melonie Ochoa MD CHEMISTRY ORDERABLES Final R esult Performing Organization Address City/[facility] Co de Phone Number [facility] [address] [place] [address] * HEMOGLOBIN A1C W/ ESTIMATED GLUCOSE (09/15/2020 8:47 AM CDT) [facility] HGB-A1C 5.1 4.0 - 6.0 % 09/15/2020 10:15 AM CDT [facility] Est Average Glucose 99.7 mg/dL 09/15/2020 10:15 AM CDT [facility] Blood Venipuncture / Unknown 09/15/2020 8:47 AM CDT 09/15/2020 8:56 AM CDT Narrative [facility] - 09/15/2020 10:15 AM CDT HEMOGLOBIN A1C: DIABETIC PATIENTS: WELL-CONTROLLED: ?? 6.2 - 7.0 INTERMEDIATE WELL-CONTROLLED: ??7.0 - 9.0 POORLY-CONTROLLED: ??>9.0 us Melonie Ochoa MD CHEMISTRY ORDERABLES Final R esult Performing Organization Address City/[facility]/ZIP Co de Phone Number [facility] [address] [place] [address] * (ABNORMAL) LIPID PANEL (09/15/2020 8:47 AM CDT) [facility] CHOLESTEROL 197 <=200 mg/dL 09/15/2020 9:54 AM CDT [facility] TRIGLYCERIDES 70 <150 mg/dL 09/15/2020 9:54 AM CDT [facility] HDL CHOLESTEROL 49.6 >40 mg/dL 9:54 AM CDT [facility] LDL 133(H) 5 - 130 mg/dL 09/15/2020 9:54 AM CDT [facility] VLDL 14 5 - 55 mg/dL 09/15/2020 9:54 AM CDT [facility] CHOL/HDL RATIO 4.0 0.0 - 4.4 09/15/2020 9:54 AM CDT [facility] NON-HDL CHOLESTEROL 147.4(H) <130 mg/dL 09/15/2020 9:54 AM CDT [facility] IS THE PATIENT REQUIRED TO BE FASTING? Yes 09/15/2020 9:54 AM CDT [facility] HAS THE PATIENT BEEN FASTING? Yes 09/15/2020 9:54 AM CDT [facility] Blood Venipuncture / Unknown 09/15/2020 8:47 AM CDT 09/15/2020 8:56 AM CDT us Melonie Ochoa MD CHEMISTRY ORDERABLES Final R esult [facility] [address] [place] [address] * (ABNORMAL) CMP (COMPREHENSIVE METABOLIC PANEL) (09/15/2020 8:47 AM CDT) [facility] SODIUM 140 136 - 144 mmol/L 09/15/2020 9:54 AM CDT [facility] POTASSIUM 3.8 3.5 - 5.1 mmol/L 09/15/2020 9:54 AM CDT [facility] CHLORIDE 105 100 - 110 mmol/L 09/15/2020 9:54 AM CDT [facility] CO2, VENOUS 22 22 - 32 mmol/L 09/15/2020 9:54 AM T [facility] ANION GAP 16.8 8.0 - 20.0 mmol/L 09/15/2020 9:54 AM CDT [facility] GLUCOSE 91 70 - 99 mg/dL 09/15/2020 9:54 AM T [facility] BUN 11 6 - 20 mg/dL 09/15/2020 9:54 AM T [facility] CREATININE, BLOOD 0.73 0.60 - 1.10 mg/dL 09/15/2020 9:54 AM [facility] BUN/CREATININE RATIO 15 12 - 20 ratio 09/15/2020 9:54 AM [facility] TOTAL PROTEIN 7.2 6.0 - 8.3 g/dL 09/15/2020 9:54 AM [facility] ALBUMIN 4.2 3.5 - 5.2 g/dL 09/15/2020 9:54 AM [facility] Comment: The colormetric methods used for the determination of Albumin may lead to falsely elevated test results in patients suffering from renal failure or insufficiency due to interference with other proteins. A/G RATIO 1.4 1.0 - 2.0 09/15/2020 9:54 AM [facility] CALCIUM 9.3 8.9 - 10.3 mg/dL 09/15/2020 9:54 AM [facility] T BILI 0.5 <=1.2 mg/dL 09/15/2020 9:54 AM [facility] SGOT (AST) 38(H) <=32 U/L 09/15/2020 9:54 AM [facility] SGPT (ALT) 62(H) <=41 U/L 09/15/2020 9:54 AM T [facility] ALKALINE PHOSPHATASE 21(L) 35 - 105 U/L 09/15/2020 9:54 AM CDT [facility] GFR, EST. NONAFRICAN >60 >=60 09/15/2020 9:54 AM CDT [facility] GFR, EST. >60 >=60 021 9:54 AM CDT [facility] Comment: Creatinine Clearance is the preferred criteria for selecting drug dose adjustments in renally impaired patients. ??The GFR is provided as additional pertinent clinical information. GFR is reported in mL/min/1.73 sq m. IS THE PATIENT REQUIRED TO BE FASTING? No 09/15/2020 9:54 AM CDT [facility] Blood Venipuncture / Unknown 09/15/2020 8:47 AM CDT 09/15/2020 8:56 AM CDT us Melonie Ochoa MD CHEMISTRY ORDERABLES Final R esult [facility] [address] [place] [address] * EKG 12 LEAD (09/14/2020 11:44 AM CDT) Ventricular Rate 52 BPM EXTERNAL EKG Atrial Rate 52 BPM EXTERNAL EKG P-R Interval 148 ms EXTERNAL EKG QRS Duration 88 ms EXTERNAL EKG Q-T Duration 450 ms EXTERNAL EKG QTC CALCULATION 418 ms EXTERNAL EKG P [place] 57 degrees EXTERNAL EKG R [place] 15 degrees EXTERNAL EKG T [place] 13 degrees EXTERNAL EKG 09/14/2020 11:4 4 AM CDT Impressions EXTERNAL EKG - 09/22/2020 9:17 AM CDT Sinus bradycardia Cannot rule out Anterior infarct , age undetermined Abnormal ECG No previous ECGs available Confirmed by Raisa Pereyra ([id number]) on 09/22/2020 9:17:58 AM Narrative Procedure Note Raisa Pereyra MD - 09/22/2020 IMPRESSION: Sinus bradycardia Cannot rule out Anterior infarct , age undetermined Abnormal ECG No previous ECGs available Confirmed by Raisa Pereyra ([id number]) on 09/22/2020 9:17:58 AM us Melonie Ochoa MD IMG ECG ORDERABLES Final Res ult EXTERNAL EKG documented in this encounter Visit Diagnoses Diagnosis Obesity (BMI 35.0-39.9 without comorbidity)- Primary Obesity, unspecified ARTHUR (generalized anxiety disorder) Generalized anxiety disorder Depression, unspecified depression type documented in this encounter Additional Health Concerns Assessment Noted Time PHQ-9 Depression Total Score: 9 06/04/19 21 9:00 AM FORM MAKER PLASTER documented as of this encounter Care Teams Historian Dramatic Arts Relationship Specialty Start Date End Date Melonie Ochoa MD PCP - General Family Medicine 11/12/18 02/16/23 Lucero Hood MD Obstetrics & Gynecology 03/20/16 documented as of this encounter
--- OUTSIDE RECORDS SUMMARY | 2024-04-11 00:49 | XMS_ITS | Encounter Summary ---
Author Organization [facility] Address [address] [place] [address] Phone Care Team Providers Care Vocational Psychologist Name Role Phone Lucero Hood MD Unavailable Unavail Melonie Wheeler MD Primary Care Provider Reason for Visit * Reason Comments Depression * Auth/Cert Specialty Diagnoses / Procedures Referred By Yanni t Referred To Contact Referral ID Status Reason Start Date Expiration Date Visits Re quested Visits Authorized [id number] 1 1 Encounter Details Date Type Department Care Team (Latest Contact Info) Description 12/07/2020 4:00 PM CDT [facility] 1 [place] [phone] Malka Coreas, PERFORMANCE SOLUTIONS SPECIALIST #[address] [place] [address] Major depressive disorder, recurrent episode with anxious [...] Master's degree (e.g., MA, MS, Marcellus, MEd, FLASH OVEN OPERATOR, JOEY) 05/07/2020 Sexually Active Control Partners [...] this encounter Progress Notes * Malka Coreas, PERFORMANCE SOLUTIONS SPECIALIST - 12/07/2020 4:00 PM CDT [facility] CLINICAL PROGRESS NOTE NAME: Airam Munoz AGE: 40 y.o. DATE OF : 1980 DATE OF SERVICE: 12/07/2020 START TIME: 4:00pm END TIME: 4:45pm DIAGNOSIS: 1. Major depressive disorder, recurrent episode with anxious distress (HCC) TREATMENT PLAN: Goals Addressed This Visit's Progress Behavioral Health ??? Grief Brigid will cope with grief more effectively Goal Reviewed with: patient Readiness to change: Ready to change Department associated with goal: [facility] Steps to achieve goal: [...] image negative automatic thoughts/intrusive thoughts. Anxiety Brigid reports that her mother 2 weeks ago. She processed her grief. She is still taking responsibility for the problems of others. She was receptive to feedback. Based upon the presenting problem the following [...] st Contact Info) Description 04/14/2024 7:00 AM DATA CONSULTANT Appointment [facility] Mammography 1 [place] [address] Ravi Krishna MD [address] [address] 07/08/2024 9:30 AM CDT Office Visit [facility] - Pulmonology & Sleep Medicine [facility] [address]2 [place] [address] Abby Dinh APRN, AMANDEEP [address] [address] documented as of this encounter Goals Goal Patient Goal Type Associated Problems Recent Progress Patient-Stated? Author Grief Behavioral Health On track( 021 3:59 PM CDT) No Malka Coreas LCSW Note: Brigid will cope with grief more effectively Goal Reviewed with: patient Readiness to change: Ready to change Department associated with goal: [facility] Steps to achieve goal: [...] Total Score: 9 06/04/19 21 9:00 AM DATA CONSULTANT documented as of this encounter Care Teams Vocational Psychologist Relationship Specialty Start Date End Date Melonie Ochoa MD PCP - General Family Medicine 11/12/18 02/16/23 Lucero Hood MD Obstetrics & Gynecology 03/20/16 documented as of this encounter
--- OUTSIDE RECORDS SUMMARY | 2024-04-11 00:49 | XMS_ITS | Encounter Summary ---
Author Organization [facility] Care Team Providers Care Plan Manager Name Role Phone Lucero Hood MD Unavailable Unavail able Melonie Ochoa MD Primary Care Provider Encounter Details Date Type Department Care Team (Latest Contact Info) Description 07/24/2021 Travel Social History Tobacco Use Types Packs/Day [...] Master's degree (e.g., MA, MS, Marcellus, MEd, SPARK PLUG ASSEMBLER, JOEY) 05/07/2020 Sexually Active Control Partners [...] st Contact Info) Description 04/14/2024 7:00 AM RESIDENT CARE AIDE Appointment [facility] Mammography 1 [place] [phone] Ravi Krishna MD [address] [facility] [address] [place] [address] 07/08/2024 9:30 AM CDT Office Visit [facility] - Pulmonology & Sleep Medicine - [place] [address] [place] [address] Abby Dinh APRN, PRODUCT MARKETING MANAGER #2 [facility] [address] [place] [address] documented as of this encounter Goals Goal Patient Goal Type Associated Problems Recent Progress Patient-Stated? Author Grief Behavioral Health On track( 021 3:59 PM CDT) Mary Jane Morris, KRISTA Note: Brigid will cope with grief more effectively Goal Reviewed with: patient Readiness to change: Ready to change Department associated with goal: [facility] Steps [...] Total Score: 9 06/04/19 21 9:00 AM RESIDENT CARE AIDE documented as of this encounter Care Teams Plan Manager Relationship Specialty Start Date End Date Melonie Ochoa MD PCP - General Family Medicine 11/12/18 02/16/23 Lucero Hood MD Obstetrics & Gynecology 03/20/16 documented as of this encounter
--- OUTSIDE RECORDS SUMMARY | 2024-04-11 00:49 | XMS_ITS | Encounter Summary ---
Author Organization [facility] Address [address] [place] [address] Phone Care Team Providers Care International Trade Compliance Manager Name Role Phone Lucero Hood MD Unavailable Unavail Melonie Wheeler MD Primary Care Provider Reason for Visit * Reason Comments Depression * Auth/Cert Specialty Diagnoses / Procedures Referred By Yanni t Referred To Contact Referral ID Status Reason Start Date Expiration Date Visits Re quested Visits Authorized [id number] 1 1 Encounter Details Date Type Department Care Team (Latest Contact Info) Description 09/03/2020 4:00 PM CDT [facility] 1 [place] [phone] Malka Coreas, LOG PEELER [address] [place] [address] Major depressive disorder, recurrent episode with anxious [...] Master's degree (e.g., MA, MS, Marcellus, MEd, MANUGRAPHER, JOEY) 05/07/2020 Sexually Active Control Partners Comments [...] this encounter Progress Notes * Malka Coreas, LOG PEELER - 09/03/2020 4:00 PM CDT Images from the original note were not included. [facility] CLINICAL PROGRESS NOTE NAME: Airam Munoz AGE: 40 y.o. DATE OF : 1980 DATE OF SERVICE: 09/03/2020 START TIME: 4:00pm END TIME: 4:45pm DIAGNOSIS: 1. Major depressive disorder, recurrent episode with anxious distress (HCC) TREATMENT PLAN: Goals Addressed This Visit's Progress Behavioral Health ??? Behavioral Health (pt-stated) On track I need better strategies to manage my stress. Goal Reviewed with: patient today Readiness to change: Ready to change Department associated with goal: [facility] Steps to [...] Ready to change Department associated with goal: [facility] Steps to [...] with anxiety and depression. PROBLEM STATUS: Airam Rainey was seen today due to the following concerns: Depression: low self esteem/self image negative automatic thoughts/intrusive thoughts. Anxiety Brigid reports that she is doing well overall. She is participating in self care with exercise, a balanced diet, and attending to her mental health. Brigid feels she has completed her goals and is maintaining her changes. Good insight and self awareness. PRN through the summer. Based upon the presenting problem the following [...] st Contact Info) Description 04/14/2024 7:00 AM APPLICATION COORDINATOR Appointment [facility] Mammography 1 [place] [phone] Ravi Krishna MD [address] [facility] [address] [facility] [address] [place], [place] [id number] 07/08/2024 9:30 AM CDT Office Visit [facility] - Pulmonology & Sleep Medicine [facility] #2 [place] [address] Abby Dinh APRN, TAR HEAT EXCHANGER CLEANER #2 [facility] [address] [place] [address] documented as of this encounter Visit Diagnoses Diagnosis Major depressive disorder, recurrent episode with anxious distress (HCC)- Primary documented in this encounter Additional Health Concerns Assessment Noted Time PHQ-9 Depression Total Score: 9 06/04/19 21 9:00 AM APPLICATION COORDINATOR documented as of this encounter Care Teams International Trade Compliance Manager Relationship Specialty Start Date End Date Melonie Ochoa MD PCP - General Family Medicine 11/12/18 02/16/23 Lucero Hood MD Obstetrics & Gynecology 03/20/16 documented as of this encounter
--- OUTSIDE RECORDS SUMMARY | 2024-04-11 00:49 | XMS_ITS | Encounter Summary ---
Author Organization [facility] Address [address] [place] [address] Phone Care Team Providers Care Compilation Clerk Name Role Phone Lucero Hood MD Unavailable Unavail able Melonie Ochoa MD Primary Care Provider Reason for Visit * Reason Onset Date Comments Request for Records 11/23/2020 Encounter Details Date Type Department Care Team ([facility] st Contact Info) Description 11/23/2020 Telephone [facility] [address] [place] [phone] Melonie Ochoa MD [address] [place] [address] Request for Records Social History Tobacco Use Types Packs/Day Years [...] Master's degree (e.g., MA, MS, Marcellus, MEd, HYDRO TECHNICIAN, JOEY) 05/07/2020 Sexually Active Control Partners Comments Yes Male Comments No Sex and Gender Information Value Date Recorded Sex Assigned at Not on file Legal Sex Female 7:07 PM CDT Gender Identity Not on file Sexual Orientation Not on file documented as of this encounter Miscellaneous Notes * Telephone Encounter - Cecile Barth R - 11/23/2020 11:21 AM CDT Patient calling to check on her immunization records, we have very little on patient I told patientto try [facility]. Thank you documented in this encounter Plan of Treatment Upcoming Encounters Date Type Department Care Team (Late st Contact Info) Description 04/14/2024 7:00 AM SSDS MK 2 ADVANCED OPERATOR Appointment [facility] Mammography 1 [place] [address] Ravi Krishna MD [address] [facility] [address] [facility] [address] [place] [address] 07/08/2024 9:30 AM CDT [facility] - Pulmonology & Sleep Medicine - [place] #2 [place] [address] Abby Dinh APRN, BUSHWALKING GUIDE #2 [facility] [address] [place] [address] documented as of this encounter Visit Diagnoses Not on filedocumented in this encounter Additional Health Concerns Assessment Noted Time PHQ-9 Depression Total Score: 9 06/04/19 21 9:00 AM SSDS MK 2 ADVANCED OPERATOR documented as of this encounter Care Teams Compilation Clerk Relationship Specialty Start Date End Date Melonie Ochoa MD PCP - General Family Medicine 11/12/18 02/16/23 Lucero Hood MD Obstetrics & Gynecology 03/20/16 documented as of this encounter
--- OUTSIDE RECORDS SUMMARY | 2024-04-11 00:49 | XMS_ITS | Encounter Summary ---
Author Organization [facility] Address [address] [place] [address] Phone Care Team Providers Care Diamond Powder Technician Name Role Phone Lucero Hood MD Unavailable Unavail able Melonie cOhoa MD Primary Care Provider [phone] Reason for Visit * Reason Comments Follow-up Encounter Details Date Type Department Care Team (Late st Contact Info) Description 07/25/2021 8:45 AM CDT Office Visit [facility] - Primary Care - [place] [address] [place] [phone] Melonie Ochoa MD [address] [place] [address] Physical exam, annual (Adult) (Primary Dx); Obesity (BMI 35.0-39.9 without comorbidity); Depression, unspecified depression type; Sleep apnea, unspecified type Discharge Disposition: Discharged [...] Master's degree (e.g., MA, MS, Marcellus, MEd, LOCAL TANKER TRUCK DRIVER, JOEY) 05/07/2020 Sexually Active Control Partners [...] Sign Reading Time Taken Comments Blood Pressure 120/78 07/25/2021 8:43 AM CDT Pulse 66 07/25/2021 8:43 AM CDT Temperature - - Respiratory Rate 20 07/25/2021 8:43 AM CDT Oxygen Saturation 97% 07/25/2021 8:43 AM CDT Inhaled Oxygen Concentration - - Weight 103.4 kg (228 lb) 07/25/2021 8:43 AM CDT Height 167.6 cm (5' 6 ) 07/25/2021 8:43 AM CDT Body Mass Index 36.8 07/25/2021 8:43 AM CDT documented in this encounter Progress Notes * Nica Robles CMA - 07/25/2021 8:45 AM CDT Airam Munoz, 41 y.o., female is here for Follow-up Medication Refills: Patient reports/denies need for medication refills. Orders Pended: no Requested Prescriptions No prescriptions requested or ordered in this encounter Home Medications Medication Sig Start Date End Date Taking? Authorizing Provider cetirizine (ZYRTEC) 10 MG Tablet Take 10 mg by mouth daily. Yes Brian Pena MD Cholecalciferol (VITAMIN D PO) Take 1,200 Units by mouth daily. Yes Brian Pena MD EST ESTROGENS-METHYLTEST PO Take by mouth. Yes Emergency, Nurse, RN FLUoxetine (PROzac) 20 MG Capsule TAKE 1 CAPSULE BY MOUTH EVERY DAY 07/18/21 Yes Melonie Ochoa MD fluticasone (FLONASE) 50 MCG/ACT Suspension 2 Sprays by Nasal route daily. Use in each nostril as directed. 11/09/18 Yes Melonie Ochoa MD Multiple Vitamin (MULTI-VITAMIN PO) Take by mouth daily. Yes Provider MD Brian oxymetazoline (AFRIN NASAL SPRAY) 0.05 % Solution 2 Sprays by Nasal route 2 times daily. 11/09/18 Yes Melonie Ochoa MD propranolol (INDERAL) 10 MG Tablet TAKE 1 TABLET BY MOUTH THREE TIMES A DAY NEEDED FOR ANXIETY 07/10/21 Yes Melonie Ochoa MD Medications Discontinued During This Encounter Medication Reason ??? FLUoxetine (PROzac) 20 MG Capsule Therapy completed I have reviewed the home medication list [...] today: N/A * Melonie Ochoa MD - 07/25/2021 8:45 AM CDT Subjective Chief complaint: Airam Munoz is here for complete physical exam Follow-up History of Present Illness: Airam presents here for a followup and annual physical visit. Her vitals are stable with a BP of 120/78 mmHg. She has gained 10 pounds since her last visit in January 2021. She discontinued her phentermine because she had nausea and hot flashes. She also stopped Noom. 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 She plans to restart Weight Watchers in summer to help lose weight. She reports having apneic spells noticed by her when she sleeps. She has had a telephone encounter with MOISÉS Briceno, on 07/16/2021. She has referred her to Pulmonology. Appointment coming up on 08/16/2021. She reports her depression symptoms are under good control with Prozac 20 mg daily. She also takes propranolol as needed for her anxiety. IJN: [id number] Did not get labs prior to this office visit. ROS: Constitutional: denies significant weight loss or weight gain, fever or chills SKIN: Denies rash, itching, or significant moles. HEENT: denies headaches, tinnitus, vertigo, visual issues, teeth or throat problems. RESPIRATORY: denies shortness of breath, chronic cough or other respiratory problems. CARDIAC: denies palpitations, diaphoresis, chest pain radiating into arms or neck. GI: denies diarrhea, constipation, heartburn, nausea, vomiting, hematemesis, hemorrhoids : Denies incontinence, urgency, frequency, nocturia, hesitancy, dribbling. MUSCULOSKELETAL: Denies Joint pain or claudications NEURO: Denies syncope, seizures, weakness, paralysis, tremors, memory problems. PSYCH: Denies depression, anxiety PMH/PSH/FH/SH/medications/allergies/health maintenance entries were reviewed with patient and updated. Objective: Physical Exam Vitals: 07/25/21 0843 BP: 120/78 Pulse: 66 Resp: 20 SpO2: 97% Weight: 228 lb (103.4 kg) Height: 5' 6 (1.676 m) Body mass index is 36.8 kg/m??. Constitutional: She appears well-developed and well-nourished. No distress. HENT: Head: Atraumatic, normocephalic. Right Ear: Tympanic membrane, external ear and ear canal normal. Left Ear: Tympanic membrane, external ear and ear canal normal. Nose: Nose normal. Mouth/Throat: Oropharynx is clear and moist. Eyes: PERRLA, EOMI, Conjunctivae are normal, no discharge, No scleral icterus. Neck: No tracheal deviation present. No thyromegaly. Cardiovascular: Normal rate, regular rhythm, normal heart sounds and intact distal pulses. No murmur/rubs/gallops heard. Pulmonary/Chest: clear to auscultation bilaterally, no crepts or wheezes. Musculoskeletal/extremities: no pedal edema, no calf tenderness B/L. Neurological: She is alert. Strength, sensation normal. Skin: Skin is warm and dry. No rash. Psychiatric: She has a normal mood and affect. Her behavior is normal. Assessment and Plan Airam Munoz who is a 41 y.o. y.o. female presents here for complete physical exam 1. Annual Physical/Preventetive Medicine Visit: Immunization History Administered Date(s) Administered ??? Covid-19, Mrna, Lnp-s, Pf, 30 Mcg/0.3 Ml Dose ([employer]) 05/26/2020, 06/23/2020, 01/06/2021 ??? Influenza Vaccine, Quadrivalent, PF 01/16/2020, 01/18/2021 ??? TDAP Vaccine 11/23/2020 Recent Procedure Details MAMMOGRAM BILATERAL MISCELLANEOUS Resulted: 10/12/2020 (Final result) 2. Obesity (BMI 35.0-39.9 without comorbidity) - discontinued phentermine because of hot flashes and nausea. - gained 10 lb since last visit in January 2021 - plans to start weight watchers soon 3. Depression, unspecified depression type - symptoms well controlled with Prozac 20 mg q.d.. Takes propranolol 10 mg p.r.n. for anxiety 4. Sleep apnea, unspecified type - has appointment with pulmonology for evaluation. Anticipatory guidance on nutrition, healthy diet, exercise given. Followup: Return in about 3 months (around 10/24/2021).with labs done 1 week prior to next appointment. The patient understood the plan, questions were answered and AVS including the updated medication list was provided to the patient. Documentation for this visit on 07/25/21 was completed using a template. I have seen and examined the patient. Everything documented was personally performed at this visit with the necessary additions, deletions and changes made as appropriate. This note was dictated using M*Modal fluency dictation system and there may be errors in paperboard box maker. Despite proof reading the note, there may be mistakes and I apologize for those. Melonie Ochoa MD documented in this encounter Plan of Treatment Upcoming Encounters Date Type Department Care Team (Late st Contact Info) Description 04/14/2024 7:00 AM STEAK TENDERIZER MACHINE Appointment [facility] Mammography [address] [facility] [place] [address] Ravi Krishna MD [address] [facility] [address] [place] [address] 07/08/2024 9:30 AM CDT Office Visit [facility] - Pulmonology & Sleep Medicine - [place] [address] [phone] Abby Dinh, WAREHOUSE DISTRIBUTION SPECIALIST, INTAKE CLERK [address] [facility] [address] [place] [address] documented as of this encounter Goals Goal Patient Goal Type Associated Problems Recent Progress Patient-Stated? Author Grief Behavioral Health On track( 021 3:59 PM CDT) Mary Jane Morris, KRISTA Note: Brigid will cope with grief more effectively Goal Reviewed with: patient Readiness to change: Ready to change Department associated with goal: [facility] [...] documented as of this encounter Results * THYROXINE (T4) FREE (10/24/2021 7:08 AM CDT) T4 FREE 1.0 0.9 - 1.7 ng/dL 10/24/2021 8:53 AM CDT [facility] Blood Venipuncture / Unknown 10/24/2021 7:08 AM CDT 10/24/2021 7:54 AM CDT us Melonie Ochoa MD CHEMISTRY ORDERABLES Final R esult Performing Organization Address City[facility] Co de Phone Number [facility] [address] [place] [address] * THYROID STIMULATING HORMONE (TSH) (10/24/2021 7:08 AM CDT) TSH 3.090 0.270 - 4.200 mIU/L 10/24/2021 8:53 AM CDT [facility] Blood Venipuncture / Unknown 10/24/2021 7:08 AM CDT 10/24/2021 7:54 AM CDT Melonie Ochoa MD CHEMISTRY ORDERABLES Final R esult Performing Organization Address [facility] Co de Phone Number [facility] [address] [place] [address] * HEMOGLOBIN A1C W/ ESTIMATED GLUCOSE (10/24/2021 7:08 AM CDT) HGB-A1C 4.9 4.0 - 6.0 % 10/24/2021 8:54 AM CDT [facility] Est Average Glucose 93.9 mg/dL 10/24/2021 8:54 AM CDT [facility] Blood Venipuncture / Unknown 10/24/2021 7:08 AM CDT 10/24/2021 7:53 AM CDT Narrative [facility] - 10/24/2021 8:54 AM CDT HEMOGLOBIN A1C: DIABETIC PATIENTS: WELL-CONTROLLED: ?? 6.2 - 7.0 INTERMEDIATE WELL-CONTROLLED: ??7.0 - 9.0 POORLY-CONTROLLED: ??>9.0 us Melonie Ochoa MD CHEMISTRY ORDERABLES Final R esult Performing Organization Address [facility] Co de Phone Number [facility] [address] [place] [address] * (ABNORMAL) LIPID PANEL (10/24/2021 7:08 AM CDT) CHOLESTEROL 232(H) <=200 mg/dL 10/24/2021 8:53 AM CDT [facility] TRIGLYCERIDES 89 <150 mg/dL 10/24/2021 8:53 AM CDT [facility] HDL CHOLESTEROL 51.7 >40 mg/dL 8:53 AM CDT [facility] LDL 163(H) 5 - 130 mg/dL 10/24/2021 8:53 AM CDT [facility] VLDL 18 5 - 55 mg/dL 10/24/2021 8:53 AM CDT [facility] CHOL/HDL RATIO 4.5(H) 0.0 - 4.4 10/24/2021 8:53 AM CDT [facility] NON-HDL CHOLESTEROL 180.3(H) <130 mg/dL 10/24/2021 8:53 AM CDT [facility] Blood Venipuncture / Unknown 10/24/2021 7:08 AM CDT 10/24/2021 7:54 AM CDT us Melonie Ochoa MD CHEMISTRY ORDERABLES Final R esult [facility] [address] [place] [address] * (ABNORMAL) CMP (COMPREHENSIVE METABOLIC PANEL) (10/24/2021 7:08 AM CDT) SODIUM 140 136 - 144 mmol/L 10/24/2021 8:53 AM CDT [facility] POTASSIUM 3.7 3.5 - 5.1 mmol/L 10/24/2021 8:53 AM CDT [facility] CHLORIDE 105 100 - 110 mmol/L 10/24/2021 8:53 AM CDT [facility] CO2, VENOUS 23 22 - 32 mmol/L 10/24/2021 8:53 AM CDT [facility] ANION GAP 15.7 8.0 - 20.0 mmol/L 10/24/2021 8:53 AM CDT [facility] GLUCOSE 92 70 - 99 mg/dL 10/24/2021 8:53 AM CDT [facility] BUN 14 6 - 20 mg/dL 10/24/2021 8:53 AM CDT [facility] CREATININE, BLOOD 0.73 0.60 - 1.10 mg/dL 10/24/2021 8:53 AM CDT [facility] BUN/CREATININE RATIO 19 12 - 20 ratio 10/24/2021 8:53 AM CDT [facility] TOTAL PROTEIN 7.3 6.0 - 8.3 g/dL 10/24/2021 8:53 AM T [facility] ALBUMIN 4.4 3.5 - 5.2 g/dL 10/24/2021 8:53 AM T [facility] Comment: The colormetric methods used for the determination of Albumin may lead to falsely elevated test results in patients suffering from renal failure or insufficiency due to interference with other proteins. A/G RATIO 1.5 1.0 - 2.0 10/24/2021 8:53 AM T [facility] CALCIUM 9.2 8.9 - 10.3 mg/dL 10/24/2021 8:53 AM T [facility] T BILI 0.4 <=1.2 mg/dL 10/24/2021 8:53 AM CDT [facility] SGOT (AST) 20 <=32 U/L 10/24/2021 8:53 AM CDT [facility] SGPT (ALT) 21 <=41 U/L 10/24/2021 8:53 AM CDT [facility] ALKALINE PHOSPHATASE 20(L) 35 - 105 U/L 10/24/2021 8:53 AM CDT [facility] GFR, EST. NONAFRICAN >60 >=60 10/24/2021 8:53 AM CDT [facility] GFR, EST. >60 >=60 022 8:53 AM CDT [facility] Comment: Creatinine Clearance is the preferred criteria for selecting drug dose adjustments in renally impaired patients. ??The GFR is provided as additional pertinent clinical information. GFR is reported in mL/min/1.73 sq m. IS THE PATIENT REQUIRED TO BE FASTING? No 10/24/2021 8:53 AM CDT [facility] Blood Venipuncture / Unknown 10/24/2021 7:08 AM CDT 10/24/2021 7:54 AM CDT us Melonie Ochoa MD CHEMISTRY ORDERABLES Final R esult [facility] [address] [place] [address] documented in this encounter Visit Diagnoses Diagnosis Physical exam, annual (Adult)- Primary Routine general medical examination at a health care facility Obesity (BMI 35.0-39.9 without comorbidity) Obesity, unspecified Depression, unspecified depression type Sleep apnea, unspecified type documented in this encounter Additional Health Concerns Assessment Noted Time PHQ-9 Depression Total Score: 9 06/04/19 21 9:00 AM STEAK TENDERIZER MACHINE documented as of this encounter Care Teams Diamond Powder Technician Relationship Specialty Start Date End Date Melonie Ochoa MD PCP - General Family Medicine 11/12/18 02/16/23 Lucero Hood MD Obstetrics & Gynecology 03/20/16 documented as of this encounter
--- OUTSIDE RECORDS SUMMARY | 2024-04-11 00:49 | XMS_ITS | Encounter Summary ---
Author Organization [facility] Address [address] [place] [address] Phone Care Team Providers Care Computer Equipment Repairer Name Role Phone Lucero Hood MD Unavailable Unavail able Natalia Ochoa MD Primary Care Provider [phone] Reason for Visit * Reason Onset Date Comments Medication Management 09/14/2020 Results 09/14/2020 Encounter Details Date Type Department Care Team (Late st Contact Info) Description 09/14/2020 Telephone [facility] Central Call Center [address] [place] [address] Natalia Ochoa MD [address] [place] [address] Medication Management; Results Social History Tobacco Use Types Packs/Day Years [...] Master's degree (e.g., MA, MS, Marcellus, MEd, PARAGLIDING INSTRUCTOR, JOEY) 05/07/2020 Sexually Active Control Partners [...] as of this encounter Miscellaneous Notes * Addendum Note - Natalia Ochoa MD - 09/17/2020 4:50 PM CDTAddended by: NATALIA OCHOA on: 09/17/2020 04:50 PM Modules accepted: Orders * Telephone Encounter - Natalia Ochoa MD - 09/17/2020 4:50 PM CDT Stress test ordered. * Telephone Encounter - Areli Blanco RN - 09/17/2020 11:55 AM CDT Patient is calling in to say she was told her EKG was abnormal and needs another test. Advised patient that stress test is in pending status, awaiting provider's signature. She asked what was specifically wrong with the EKG - educated about possible old infarct and doing further testing to obtain more specific information. She verbalized understanding. Verbalized understanding. Advised to call back with development of symptoms, questions, or concerns. * Addendum Note - Eugenie Ruiz RN - 09/14/2020 3:17 PM CDTAddended by: EUGENIE RUIZ on: 09/14/2020 03:17 PM Modules accepted: Orders * Telephone Encounter - Eugenie Ruiz RN - 09/14/2020 3:13 PM CDT Called patient to inform-verbalized understanding and is able to walk on treadmill. Order pended for treadmill stress echo. * Telephone Encounter - Natalia Ochoa MD - 09/14/2020 3:05 PM CDT Please call patient and inform, EKG was slightly abnormal. I recommend getting a stress test before starting phentermine. Please check if she can walk on a treadmill. If patient agrees, Please pend order for a treadmill stress echo test. * Telephone Encounter - Eugenie Ruiz RN - 09/14/2020 1:04 PM CDT Called patient to inform-verbalized understanding. * Telephone Encounter - Natalia Ochoa MD - 09/14/2020 12:50 PM CDT I will prescribe phentermine after I review her lab work. Please inform patient. * Telephone Encounter - Peggy Day - 09/14/2020 12:21 PM CDT Pt calling to state that she does want to be prescribed Qsymia as discussed at the OV today. Pharmacy: [facility] She does state that the pharmacy said there will be forms that will need to be completed for the medication to be covered. documented in this encounter Plan of Treatment Upcoming Encounters Date Type Department Care Team (Late st Contact Info) Description 04/14/2024 7:00 AM HUMAN RESOURCE ASSISTANT Appointment [facility] Mammography [address] [place] [address] Ravi Krishna MD [address] [facility] [address] [place] [address] 07/08/2024 9:30 AM CDT Office Visit [facility] - Pulmonology & Sleep Medicine - [place] [address] [place] [address] Abby Dinh APRN, INSURANCE VERIFY REP [address] [facility] [address] [place] [address] documented as of this encounter Visit Diagnoses Diagnosis Abnormal EKG- Primary Nonspecific abnormal electrocardiogram (ECG) (EKG) documented in this encounter Additional Health Concerns Assessment Noted Time PHQ-9 Depression Total Score: 9 06/04/19 21 9:00 AM HUMAN RESOURCE ASSISTANT documented as of this encounter Care Teams Computer Equipment Repairer Relationship Specialty Start Date End Date Natalia Ochoa MD PCP - General Family Medicine 11/12/18 02/16/23 Lucero Hood MD Obstetrics & Gynecology 03/20/16 documented as of this encounter
--- OUTSIDE RECORDS SUMMARY | 2024-04-11 00:49 | XMS_ITS | Encounter Summary ---
Author Organization [facility] Care Team Providers Care Anesthesiology Teacher Name Role Phone Lucero Hood MD Unavailable Unavail able Melonie Ochoa MD Primary Care Provider [phone] Encounter Details Date Type Department Care Team (Latest Contact Info) Description 09/15/2020 Travel Social History Tobacco Use Types Packs/Day [...] Master's degree (e.g., MA, MS, Marcellus, MEd, CHAIN MORTISER OPERATOR, JOEY) 05/07/2020 Sexually Active Control Partners [...] st Contact Info) Description 04/14/2024 7:00 AM SMALL PRODUCTS ASSEMBLER Appointment [facility] Mammography 1 [place] [phone] Ravi Krishna MD [address] [facility] [address] [facility] [address] [place] [address] 07/08/2024 9:30 AM CDT Office Visit [facility] - Pulmonology & Sleep Medicine - [place] [address] [place] [address] Abby Dinh APRN, BEAUTY OPERATOR APPRENTICE [address]2 [facility] [address] [place] [address] documented as of this encounter Visit Diagnoses Not on filedocumented in this encounter Additional Health Concerns Assessment Noted Time PHQ-9 Depression Total Score: 9 06/04/19 21 9:00 AM SMALL PRODUCTS ASSEMBLER documented as of this encounter Care Teams Anesthesiology Teacher Relationship Specialty Start Date End Date Melonie Ochao MD PCP - General Family Medicine 11/12/18 02/16/23 Lucero Hood MD Obstetrics & Gynecology 03/20/16 documented as of this encounter
--- OUTSIDE RECORDS SUMMARY | 2024-04-11 00:49 | XMS_ITS | Encounter Summary ---
Author Organization [facility] Care Team Providers Care Telecommunications Switch Technician Name Role Phone Lucero Hood MD Unavailable Unavail able Melonie Ochoa MD Primary Care Provider Encounter Details Date Type Department Care Team (Latest Contact Info) Description 09/13/2020 Travel Social History Tobacco Use Types Packs/Day [...] Master's degree (e.g., MA, MS, Marcellus, MEd, LINE SERVICER, JOEY) 05/07/2020 Sexually Active Control Partners Comments [...] st Contact Info) Description 04/14/2024 7:00 AM SHAREPOINT ADMINISTRATOR Appointment [facility] Mammography [address] [place] [phone] Ravi Krishna MD [address] [facility] [address] [facility] [address] [place] [address] 07/08/2024 9:30 AM CDT Office Visit [facility] - Pulmonology & Sleep Medicine - [place] [address] [place] [address] Abby Dinh APRN, VOICE INTERCEPT TECHNICIAN [address]2 [facility] [address] [place] [address] documented as of this encounter Visit Diagnoses Not on filedocumented in this encounter Additional Health Concerns Assessment Noted Time PHQ-9 Depression Total Score: 9 06/04/19 21 9:00 AM SHAREPOINT ADMINISTRATOR documented as of this encounter Care Teams Telecommunications Switch Technician Relationship Specialty Start Date End Date Melonie Ochoa MD PCP - General Family Medicine 11/12/18 02/16/23 Lucero Hood MD Obstetrics & Gynecology 03/20/16 documented as of this encounter
--- OUTSIDE RECORDS SUMMARY | 2024-04-11 00:49 | XMS_ITS | Encounter Summary ---
Author Organization [facility] Address [address] [address] Phone Care Team Providers Care Civil Engineering Specialist Name Role Phone Lucero Hood MD Unavailable Unavail Melonie Wheeler MD Primary Care Provider [phone] Reason for Visit * Reason Comments Depression * Auth/Cert Specialty Diagnoses / Procedures Referred By Yanni t Referred To Contact Referral ID Status Reason Start Date Expiration Date Visits Re quested Visits Authorized [id number] 1 1 Encounter Details Date Type Department Care Team (Latest Contact Info) Description 08/20/2020 4:00 PM CDT [facility] 1 [place] [id number] Malka Coreas, CHIEF NURSE EXECUTIVE [address] [place] [address] Major depressive disorder, recurrent episode with anxious [...] degree (e.g., MA, MS, Marcellus, MEd, WATER CHASER, JOEY) 05/07/2020 Sexually Active Control Partners Comments [...] this encounter Progress Notes * Malka Coreas, CHIEF NURSE EXECUTIVE - 08/20/2020 4:00 PM CDT Images from the original note were not included. [facility] CLINICAL PROGRESS NOTE NAME: Airam Munoz AGE: 40 y.o. DATE OF : 1980 DATE OF SERVICE: 08/20/2020 START TIME: 4:00pm END TIME: 4:45pm DIAGNOSIS: 1. Major depressive disorder, recurrent episode with anxious distress (HCC) 2. ARTHUR (generalized anxiety disorder) TREATMENT PLAN: Goals Addressed This Visit's Progress Behavioral Health ??? Behavioral Health (pt-stated) On track I need better strategies to manage my stress. Goal Reviewed with: patient today Readiness to change: Ready to change Department associated with goal: [facility] Steps to achieve goal: [...] Ready to change Department associated with goal: [facility] Steps to achieve goal: [...] reports that she is doing well overall. 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 She has plans for self care with exercise, a balanced diet, and attending to her mental health. Good participation. Brigid will participate in one more session before the summer break, then will use sessionsPRN through the summer. Based upon the presenting [...] st Contact Info) Description 04/14/2024 7:00 AM SOLAR DEVELOPMENT ENGINEER Appointment [facility] Mammography 1 [place] [address] Ravi Krishna MD [address] [facility] [address] [facility] [address] [place] [address] 07/08/2024 9:30 AM CDT Office Visit [facility] - Pulmonology & Sleep Medicine - [place] [address] [place] [address] Abby Dinh APRN, PATENT DRAFTER [address] [facility] [address] [place] [address] documented as of this encounter Visit Diagnoses Diagnosis Major depressive disorder, recurrent episode with anxious distress (HCC)- Primary ARTHUR (generalized anxiety disorder) Generalized anxiety disorder documented in this encounter Additional Health Concerns Assessment Noted Time PHQ-9 Depression Total Score: 9 06/04/19 21 9:00 AM SOLAR DEVELOPMENT ENGINEER documented as of this encounter Care Teams Civil Engineering Specialist Relationship Specialty Start Date End Date Melonie Ochoa MD PCP - General Family Medicine 11/12/18 02/16/23 Lucero Hood MD Obstetrics & Gynecology 03/20/16 documented as of this encounter
--- OUTSIDE RECORDS SUMMARY | 2024-04-11 00:49 | XMS_ITS | Encounter Summary ---
Author Organization [facility] Address [address] [place] [address] Phone Care Team Providers Care Manager Subway Name Role Phone Lucero Hood MD Unavailable Unavail able Melonie Ochoa MD Primary Care Provider Reason for Visit * Reason Comments Medication Refill Encounter Details Date Type Department Care Team (Late st Contact Info) Description 05/17/2021 Refill [facility] - Primary Care - [place] [address] [place] [address] Melonie Ochoa MD [address] [place] [address] Medication Refill Social History Tobacco [...] Master's degree (e.g., MA, MS, Marcellus, MEd, SANDBLASTING SUPERVISOR, JOEY) 05/07/2020 Sexually Active Control Partners Comments Yes Male Comments No Sex and Gender Information Value Date Recorded Sex Assigned at Not on file Legal Sex Female 7:07 PM CDT Gender Identity Not on file Sexual Orientation Not on file documented as of this encounter Miscellaneous Notes * Telephone Encounter - Anjelica Rhoades RN - 05/17/2021 7:41 AM PATENT SOLICITOR Medication(s) refilled and signed per [facility] Chronic Medication Refill Standing Order for Pediatricand Adult Patients. Requested Prescriptions Pending Prescriptions Disp Refills ??? propranolol (INDERAL) 10 MG Tablet [Pharmacy Med Name: PROPRANOLOL 10 MG TABLET] 90 Tablet 0 Sig: TAKE 1 TABLET BY MOUTH 3 TIMES A DAY NEEDED FOR ANXIETY Beta-Blockers Protocol Passed - 05/17/2021 12:04 AM Passed - BP on record in the past year Clinician-entered: BP Readings from Last 3 Encounters: 01/11/21 122/74 09/14/20 124/78 11/23/19 104/72 Patient-entered: No data recorded Passed - Visit with relevant provider in past 12 months or upcoming 90 days Recent Visits Date Type Provider Dept 01/11/21 Office Visit Melonie Ochoa MD [facility] [address] 09/14/20 Office Visit Melonie Ochoa MD [facility] [address] 06/18/20 Telemedicine Melonie Ochoa MD [facility] [address] 05/17/20 Telemedicine Melonie Ochoa MD [facility] Showing recent visits within past 365 days and meeting all other requirements Future Appointments No visits were found meeting these conditions. Showing future appointments within next 90 days and meeting all other requirements NT SOLICITOR documented in this encounter Plan of Treatment Upcoming Encounters Date Type Department Care Team (Late st Contact Info) Description 04/14/2024 7:00 AM PATENT SOLICITOR [facility] 1 [place] [address] Ravi Krishna MD [address] [facility] [address] [place] [address] 07/08/2024 9:30 AM CDT [facility] - [place] [address] [place] [address] Abby Dinh APRN, NET DEVELOPER PROGRAMMER [address] [facility] [address] [place] [address] documented as of this encounter Goals Goal [...] Total Score: 9 06/04/19 21 9:00 AM PATENT SOLICITOR documented as of this encounter Care Teams Manager Subway Relationship Specialty Start Date End Date Melonie Ochoa MD PCP - General Family Medicine 11/12/18 02/16/23 Lucero Hood MD Obstetrics & Gynecology 03/20/16 documented as of this encounter
--- OUTSIDE RECORDS SUMMARY | 2024-04-11 00:50 | XMS_ITS | Encounter Summary ---
Author Organization [facility] Address [address] [place] [address] Phone Care Team Providers Care Seafood And Service Meat Manager Name Role Phone Lucero Hood MD Unavailable Unavail able Melonie Ochoa MD Primary Care Provider Encounter Details Date Type Department Care Team (Latest Contact Info) Description 11/18/2019 Transcribe Orders [facility] Admitting 1 [place] [phone] Ravi Krishna MD [address] [facility] [address] [place] [address] Menopausal and female climacteric states (Primary Dx) Social History Tobacco Use Types Packs/Day Years Used Date Smoking Tobacco: Never Smokeless Tobacco: Never Alcohol Use Standard Drinks/Week Comments Yes 7 (1 standard drink = 0.6 oz pur e alcohol) Sexually Active Control Partners Comments Yes Comments No Sex and Gender Information Value Date Recorded Sex Assigned at Not on file Legal Sex Female 7:07 PM CDT Gender Identity Not on file Sexual Orientation Not on file COVID-19 Exposure Response Date Recorded In the last month, have you been in contact with someone who was confirmed or suspected to have Coronavirus / COVID-19? No / Unsure 11/15/2019 1:27 PM CDT documented as of this encounter Plan of Treatment Upcoming Encounters Date Type Department Care Team (Late st Contact Info) Description 04/14/2024 7:00 AM GALVANIZING POT RUNNER Appointment [facility] Mammography [address] [place] [address] Ravi Krishna MD [address] [facility] [address] [place] [address] 07/08/2024 9:30 AM CDT Office Visit [facility] - Pulmonology & Sleep Medicine - [place] [address] [place] [address] Abby Dinh, MOISÉS, IT ANALYST [address]2 [facility] [address] [place] [address] documented as of this encounter Results * VITAMIN D, 25 HYDROXY TOTAL (11/18/2019 7:48 AM CDT) VITAMIN D, 25 HYDROX 38 >=30 ng/mL 11/18/2019 11:06 AM CDT [facility] Blood Venipuncture / Unknown 11/18/2019 7:48 AM CDT 11/18/2019 9:07 AM CDT Narrative [facility] - 11/18/2019 11:06 AM CDT Published reference ranges for Vitamin D vary depending on time and place and method of testing, and on patient's age, sex, ethnicity and levels of other measured analytes such as parathormone, calcium and phosphorus. ??The result should be evaluated in conjunction with clinical findings and suspicions. [employer] of [employer] and Endocrine Clinical Practice Guidelines: Status Vitamin D levels (ng/mL) Deficient <=20 At risk of inadequacy 21-29 Sufficient 30-100 Centers of Disease Control and Prevention Guidelines: Status Vitamin D levels (ng/mL) Deficient <13 At risk of inadequacy 13-19 Sufficient 20-50 Possibly harmful >50 References: [employer], 2010 Dietary reference intakes for calcium and vitamin D. [place]: ??The National Academies Press. Parveen M, Beverly N, Juan Daniel GOYAL, et al., Evaluation, treatment, and prevention of Vitamin D deficiency: an Endocrinology Clinical Practice Guideline. JCEM 2011 96: 7 4352-4438. Seda A, Aníbal C, Katerina D, et al., Vitamin D Status: ??[place], 2000- 6, [facility] data brief, no. 59, MD [place]: ??[facility] for Health Statistics. 2011. us Ravi Krishna MD CHEMISTRY ORDERABLES Final R esult [facility] [address] [place] [address] documented in this encounter Visit Diagnoses Diagnosis Menopausal and female climacteric states- Primary documented in this encounter Care Teams Seafood And Service Meat Manager Relationship Specialty Start Date End Date Melonie Ochoa MD PCP - General Family Medicine 11/12/18 02/16/23 Lucero Hood MD Obstetrics & Gynecology 03/20/16 documented as of this encounter
--- OUTSIDE RECORDS SUMMARY | 2024-04-11 00:50 | XMS_ITS | Encounter Summary ---
Author Organization [employer] Care Team Providers Care Industrial Servicer Name Role Phone Lucero Hood MD Unavailable Unavail able Melonie Ochoa MD Primary Care Provider Encounter Details Date Type Department Care Team (Latest Contact Info) Description 11/23/2019 Travel Social History Tobacco Use Types Packs/Day Years Used Date Smoking Tobacco: Never Smokeless Tobacco: Never Alcohol Use Standard Drinks/Week Comments Yes 7 (1 standard drink = 0.6 oz pur e alcohol) PHQ-2 Answer Date Recorded Total Score - Questions 1-9 7 11/11 Sexually Active Control Partners Comments Yes Comments [...] have Coronavirus / COVID-19? No / Unsure 11/23/2019 10:24 AM CDT documented as of this encounter Functional Status * Over the last 2 weeks, how often have you been bothered by any of the following problems? Question Answer Date of Assessment Author Feeling nervous, anxious, or on edge 3 11/23/2019 10:00 AM CDT Kristine Sierra C MA Not being able to stop or co ntrol worrying 3 11/23/2019 10:00 AM CDT Kristine Sierra C MA Worrying too much about diff erent things 3 11/23/2019 10:00 AM LISAT Kristine Sierra C MA Trouble relaxing 3 11/23/2019 10:00 AM CDT Kristine Sierra CMA Being so restless that it is hard to sit still 0 11/23/2019 10:00 AM CDT Kristine Sierra C MA Becoming easily annoyed or irritable 0 11/23/2019 10:00 AM CDT Kristine Sierra C MA Feeling afraid as if somethi ng awful might happen 0 11/23/2019 10:00 AM CDT Kristine Sierra C MA ARTHUR-7 Total Score 12 11/23/2019 10:00 AM CDT Kristine Sierra CMA documented as of this encounter Plan of Treatment Upcoming Encounters Date Type Department Care Team (Late st Contact Info) Description 04/14/2024 7:00 AM RESEARCH GENETICIST [facility] 1 [place] [address] Ravi Krishna MD [address] [facility] [address] [address] 07/08/2024 9:30 AM CDT [facility] [address]2 [place] [address] Abby Dinh APRN, BURLAPPER [address] [address] documented as of this encounter Visit Diagnoses Not on filedocumented in this encounter Additional Health Concerns Assessment Noted Time PHQ-9 Depression Total Score: 7 11/23/19 20 10:00 AM CDT documented as of this encounter Care Teams Industrial Servicer Relationship Specialty Start Date End Date Melonie Ochoa MD PCP - General Family Medicine 11/12/18 02/16/23 Lucero Hood MD Obstetrics & Gynecology 03/20/16 documented as of this encounter
--- OUTSIDE RECORDS SUMMARY | 2024-04-11 00:50 | XMS_ITS | Encounter Summary ---
Author Organization [facility] Address [address] [place] [address] Phone Care Team Providers Care Pit Tanner Name Role Phone Lucero Hood MD Unavailable Unavail able Melonie Ochoa MD Primary Care Provider [phone] Reason for Visit * Reason Comments Medication Management Encounter Details Date Type Department Care Team (Late st Contact Info) Description 06/18/2020 3:00 PM OIL EXPERT Telemedicine [facility] - Primary Care - [place] [address] [place] [address] Melonie Ochoa MD [address] [place] [address] ARTHUR (generalized anxiety disorder) (Primary Dx); Depression, unspecified depression type; Obesity (BMI 35.0-39.9 without comorbidity) Social History Tobacco Use Types Packs/Day Years [...] Master's degree (e.g., MA, MS, Marcellus, MEd, SALES AND MERCHANDISING REPRESENTATIVE, JOEY) 05/07/2020 Sexually Active Control Partners [...] - Inhaled Oxygen Concentration - - Weight 106.1 kg (234 lb) 06/18/2020 3:16 PM OIL EXPERT Height 167.6 cm (5' 6 ) 06/18/2020 3:16 PM OIL EXPERT Body Mass Index 37.77 06/18/2020 3:16 PM OIL EXPERT documented in this encounter Progress Notes * Nica Robles CMA - 06/18/2020 3:00 PM CST Airam Munoz is on telephone visit for Medication Management . Medications and allergies reconciled with Airam Yuriy . EXPERT * Melonie Ochoa MD - 06/18/2020 3:00 PM CST Patient was assessed via video visit for a duration of 10 minutes. Patient verbally consented for this service to be performed and billed. Chief complaint: Medication Management HPI: Airam Munoz is a 40 y.o. female seen today for follow-up. She has been herself off of Paxil slowly. She has started taking Prozac 10 mg q.d.. Reports her symptoms of anxiety and depression are under good control. She has more motivation to do daily activities and has more energy. She has started exercising regularly. She does not have anxiety symptoms because of her regular exercise. Denies having any suicidal thoughts or ideation. She also wants to lose weight. Her current BMI is 37.77. We discussed about dietary changes, intermittent fasting, calorie deficit and portion control for weight loss. She verbalized understanding. Vitals: 06/18/20 1516 Weight: 234 lb (106.1 kg) Height: 5' 6 (1.676 m) Body mass index is 37.77 kg/m??. Current Outpatient Medications: ??? cetirizine (ZYRTEC) 10 MG Tablet ??? Cholecalciferol (VITAMIN D PO) ??? EST ESTROGENS-METHYLTEST PO ??? FLUoxetine (PROzac) 10 MG Capsule ??? fluticasone (FLONASE) 50 MCG/ACT Suspension ??? Multiple Vitamin (MULTI-VITAMIN PO) ??? oxymetazoline (AFRIN NASAL SPRAY) 0.05 % Solution ??? propranolol (INDERAL) 10 MG Tablet The past medical, surgical, family and social histories, and allergies were reviewed and updated as needed. ROS: All 14 systems reviewed and negative except as mentioned in the HPI. Physical Exam: A limited Physical Exam was performed due to the nature of the video visit. Observations include the following: Patient is alert, awake, oriented x 3. Head: atraumatic, normocephalic. Plan: 1. ARTHUR (generalized anxiety disorder) 2. Depression, unspecified depression type - discontinued Paxil by weaning herself off. - symptoms well controlled with Prozac 10 mg q.d.. Continue. 3. Obesity (BMI 35.0-39.9 without comorbidity) - Advised Low fat, low carb diet, exercise and weight loss. - Calorie restriction, portion control recommended. - Avoid concentrated sweets. Discouraged soda. Follow Up: Return in about 6 months (around 12/19/2020) for yearly physical, extended 30 min visit. Education materials sent via the patient's My [employer] account. Melonie Ochoa MD This note was dictated using M*Modal fluency dictation system and there may be errors in editorial writer. Despite proof reading the note, there may be mistakes and I apologize for those. EXPERT documented in this encounter Miscellaneous Notes * Addendum Note - Yadi Nolasco CMA - 06/18/2020 3:00 PM CSTAddended by: YADI NOLASCO on: 06/17/2021 08:53 AM Modules accepted: Orders EXPERT documented in this encounter Plan of Treatment Upcoming Encounters Date Type Department Care Team (Late st Contact Info) Description 04/14/2024 7:00 AM OIL EXPERT Appointment [facility] Mammography 1 [facility] [place] [phone] Ravi Krishna MD [address] [facility] [address] [place] [address] 07/08/2024 9:30 AM CDT Office Visit [facility] - Pulmonology & Sleep Medicine - [place] [address] [place] [address] Abby Dinh APRN, FOURTH GRADE TEACHER #2 [facility] [address] [place] [address] documented as of this encounter Goals Goal Patient Goal Type Associated Problems Recent Progress Patient-Stated? Author Grief Behavioral Health On track( 021 3:59 PM CDT) Mary Jane Morris, KRISTA Note: Brigid will cope with grief more effectively Goal Reviewed with: patient Readiness to change: Ready to change Department associated with goal: [facility] Steps to achieve goal: [...] encounter Visit Diagnoses Diagnosis ARTHUR (generalized anxiety disorder)- Primary Generalized anxiety disorder Depression, unspecified depression type Obesity (BMI 35.0-39.9 without comorbidity) Obesity, unspecified documented in this encounter Additional Health Concerns Assessment Noted Time PHQ-9 Depression Total Score: 9 06/04/19 21 9:00 AM OIL EXPERT documented as of this encounter Care Teams Pit Tanner Relationship Specialty Start Date End Date Melonie Ochoa MD PCP - General Family Medicine 11/12/18 02/16/23 Lucero Hood MD Obstetrics & Gynecology 03/20/16 documented as of this encounter
--- OUTSIDE RECORDS SUMMARY | 2024-04-11 00:50 | XMS_ITS | Encounter Summary ---
Author Organization [facility] Address [address] [place] [address] Phone Care Team Providers Care Priming Mixture Carrier Name Role Phone Lucero Hood MD Unavailable Unavail Melonie Wheeler MD Primary Care Provider Reason for Visit * Reason Comments Anxiety Encounter Details Date Type Department Care Team (Late st Contact Info) Description 05/07/2020 2:00 PM ER RN Telemedicine [facility] - Primary Care - [place] [address] [place] [phone] Kaity Blue APRN, MANAGER MATERIAL [address] [place] [address] ARTHUR (generalized anxiety disorder) (Primary Dx) Social History Tobacco Use Types Packs/Day Years Used Date Smoking Tobacco: Never Smokeless Tobacco: Never Alcohol Use Standard Drinks/Week Comments Yes 7 (1 standard drink = 0.6 oz pur e alcohol) PHQ-2 Answer Date Recorded Total Score - Questions 1-9 7 11/11 Education Answer Date Recorded What is the highest level of school you have completed or the highest degree you have received? Master's degree (e.g., MA, MS, Marcellus, MEd, BOARD CATCHER, JOEY) 05/07/2020 Sexually Active Control Partners Comments Yes Comments [...] have Coronavirus / COVID-19? No / Unsure 05/07/2020 11:17 AM ER RN documented as of this encounter Patient Instructions * Patient Instructions* Kaity Blue APN, CNP - 05/07/2020 2:00 PM ER RN Increase paxil to 20mg nightly Propranolol 10mg three times a day as discussed. RN documented in this encounter Progress Notes * Kaity Blue APN, CNP - 05/07/2020 2:00 PM CST Patient was assessed via online video for a duration of 15 minutes. Patient verbally consented for this service to be performed and billed. HPI Patient is a 40 y.o. female who presents today for Anxiety Patient states that she has never struggled with anxiety as she has the past couple months. 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 She states that the [id number] is not working at al. She feels effect from it. States her told her she needs evaluated in office as she is not herself . She denies si/hi, med side effects. She was given paxil and xanax from her ob/gyne. She still has some xanax left as she uses it very sparingly for when she has the chest discomfort that accompanies her anxiety. She states that she hasgone to the ER before because she thought she was having a heart attack and it was anxiety. ROS Fourteen point review of systems negative except as documented in HPI. Physical Exam Unable to obtain There were no vitals filed for this visit. There is no height or weight on file to calculate BMI. Past, family, and social history reviewed and updated in the chart. Assessment/Plan: 1. ARTHUR (generalized anxiety disorder) Increase paxil to 20mg, stop xanax and start propranolol. - PARoxetine (PAXIL) 20 MG Tablet; Take 1 Tab by mouth nightly. Dispense: 90 Tab; Refill: 0 - propranolol (INDERAL) 10 MG Tablet; Take 1 Tab by mouth 3 times daily. As needed for anxiety Dispense: 90 Tab; Refill: 3 Patient Instructions Increase paxil to 20mg nightly Propranolol 10mg three times a day as discussed. Patient verbalizes understanding and agrees with plan of care as noted above. New medication discussed with patient and family, including action of medication, potential side effects, interactions, and consequences for not taking it. Patient states understanding of new medication instructions. Written education on new medication added to patient printed AVS. An After Visit Summary was printed and given to the patient. Documentation for this visit on 05/07/20 was completed using a template. I have seen and examined the patient. Everything documented was personally performed at this visit with the necessary additions, deletions and changes made as appropriate. RN documented in this encounter Plan of Treatment Upcoming Encounters Date Type Department Care Team (Late st Contact Info) Description 04/14/2024 7:00 AM ER RN [facility] 1 [place] [address] Ravi Krishna MD [address] [address] 07/08/2024 9:30 AM CDT Office Visit [facility] - Pulmonology & Sleep Medicine [facility] [address] [place] [address] Abby Dinh APRN, AMANDEEP [address] [address] documented as of this encounter Visit Diagnoses Diagnosis ARTHUR (generalized anxiety disorder)- Primary Generalized anxiety disorder documented in this encounter Additional Health Concerns Assessment Noted Time PHQ-9 Depression Total Score: 7 11/23/19 20 10:00 AM CDT documented as of this encounter Care Teams Priming Mixture Carrier Relationship Specialty Start Date End Date Melonie Ochoa MD PCP - General Family Medicine 11/12/18 02/16/23 Lucero Hood MD Obstetrics & Gynecology 03/20/16 documented as of this encounter
--- OUTSIDE RECORDS SUMMARY | 2024-04-11 00:50 | XMS_ITS | Encounter Summary ---
Author Organization [facility] [employer] Care Team Providers Care Nitrocellulose Operator Name Role Phone Lucero Hood MD Unavailable Unavail able Melonie Ochoa MD Primary Care Provider Encounter Details Date Type Department Care Team (Latest Contact Info) Description 05/07/2020 Travel Social History Tobacco Use Types Packs/Day [...] Master's degree (e.g., MA, MS, Marcellus, MEd, MILL TURNER, JOEY) 05/07/2020 Sexually Active Control Partners [...] COVID-19? No / Unsure 05/07/2020 11:17 AM FILM SOUND COORDINATOR documented as of this encounter Plan of Treatment Upcoming Encounters Date Type Department Care Team (Late st Contact Info) Description 04/14/2024 7:00 AM FILM SOUND COORDINATOR Appointment [facility] Mammography 1 [place] [phone] Ravi Krishna MD [address] [facility] [address] [place] [address] 07/08/2024 9:30 AM CDT Office Visit [facility] - Pulmonology & Sleep Medicine - [place] [address] [place] [address] Abby Dinh APRN, ORCHARD MANAGER #2 [facility] [address] [place] [address] documented as of this encounter Visit Diagnoses Not on filedocumented in this encounter Additional Health Concerns Assessment Noted Time PHQ-9 Depression Total Score: 7 11/23/19 20 10:00 AM CDT documented as of this encounter Care Teams Nitrocellulose Operator Relationship Specialty Start Date End Date Melonie Ochoa MD PCP - General Family Medicine 11/12/18 02/16/23 Lucero Hood MD Obstetrics & Gynecology 03/20/16 documented as of this encounter
--- OUTSIDE RECORDS SUMMARY | 2024-04-11 00:50 | XMS_ITS | Encounter Summary ---
Author Organization [facility] Address [address] [place] [address] Phone Care Team Providers Care Cable Television Technician Name Role Phone Lucero Hood MD Unavailable Unavail able Melonie Ochoa MD Primary Care Provider [phone] Reason for Referral * Consult, Test & Initiate Treatment (Routine) - Closed Specialty Diagnoses / Procedures Referred By Contac t Referred To Contact Behavioral Health Diagnoses ARTHUR (generalized anxiety disorder) Depression, unspecified depression type Melonie Ochoa MD [address] [place] [address] Phone: tel: fax: Mary Jane Norman, [facility] Phone: tel: fax: Referral ID Status Reason Start Date Expiration Date Visits Re quested Visits Authorized [id number] Closed 05/17/2020 1 1 Scheduling Instructions Airam is being referred for DEPRESSION ANXIETY. Please contact patient for scheduling questions or concerns. See below for Airam's current medications, allergies and problem list. CURRENT MEDS: Current Outpatient Medications: ? ? cetirizine (ZYRTEC) 10 MG Tablet, Take 10 mg by mouth daily., Disp: , Rfl: ? ? Cholecalciferol (VITAMIN D PO), Take 1,200 Units by mouth daily., Disp: , Rfl: ? ? EST ESTROGENS-METHYLTEST PO, Take by mouth., Disp: , Rfl: ? ? FLUoxetine (PROzac) 10 MG Capsule, Take 1 Cap by mouth daily., Disp: 90 Cap, Rfl: 0 ? ? fluticasone (FLONASE) 50 MCG/ACT Suspension, 2 Sprays by Nasal route daily. Use in each nostril as directed., Disp: 3 Bottle, Rfl: 1 ? ? Multiple Vitamin (MULTI-VITAMIN PO), Take by mouth daily., Disp: , Rfl: ? ? oxymetazoline (AFRIN NASAL SPRAY) 0.05 % Solution, 2 Sprays by Nasal route 2 times daily., Disp: 1 Bottle, Rfl: 0 ? ? propranolol (INDERAL) 10 MG Tablet, Take 1 Tab by mouth 3 times daily as needed. As needed for anxiety, Disp: 90 Tab, Rfl: 3 No current facility-administered medications for this visit. ALLERGIES: No Known Allergies PROBLEM LIST: Patient Active Problem List: Endometriosis Seasonal and perennial allergic rhinitis Obesity (BMI 30.0-34.9) ARTHUR (generalized anxiety disorder) F LIBRARIAN WORK WITH BLIND Reason for Visit * Reason Comments Headache Nausea Medication Reaction PAXIL Encounter Details Date Type Department Care Team (Latest Contact Info) Description 05/17/2020 1:30 PM CHIEF LIBRARIAN WORK WITH BLIND Telemedicine [facility] - Primary Care - [place] [address] [place] [address] Melonie Ochoa MD [address] [place], [place] [id number] ARTHUR (generalized anxiety disorder) (Primary Dx); Depression, unspecified depression type; Hyperlipidemia, unspecified hyperlipidemia type; Close exposure to COVID-19 virus Social History Tobacco Use Types Packs/Day Years [...] Master's degree (e.g., MA, MS, Marcellus, MEd, GREENHOUSE GROWER, JOEY) 05/07/2020 Sexually Active Control Partners Comments [...] or suspected to have Coronavirus / COVID-19? Yes 05/17/2020 1:17 PM CHIEF LIBRARIAN WORK WITH BLIND documented as of this encounter Progress Notes * Nica Robles CMA - 05/17/2020 1:30 PM CST Airam Munoz is on telephone visit for Headache, Nausea, and Medication Management . Medications and allergies reconciled with Airam Munoz. F LIBRARIAN WORK WITH BLIND * Melonie Ochoa MD - 05/17/2020 1:30 PM CST Patient was assessed via video visit for a duration of 20 minutes. Patient verbally consented for this service to be performed and billed. Chief complaint: Headache, Nausea, and Medication Reaction (PAXIL) HPI: Airam Munoz is a 40 y.o. female seen today for follow-up for anxiety. She was seen by JOSE Briceno, on 11/23/2019. At that time she complained of having anxiety, so she was started on Paxil 10 mg once daily. Apparently, it helped, but about 1-2 months ago her anxiety symptoms got worse so she had a video visit with Kaity again on 05/07/2020, when her Paxil dose was increased to 20 mgonce daily. She was advised to stop Xanax and start propranolol. She still has a lot of anxiety symptoms with some tightness on her chest intermittently, but does not have any pain radiating to her arms or to her jaws. She also has developed nausea, headache, tingling sensation in her head going down her chest since her Paxil dose was increased to 20 mg once daily, so she thinks it is from the Paxil that she is having all these symptoms. She was also exposed to COVID-19, so she is now on quarantine. She initially thought it could be because of the COVID that she is having the nausea, headache, and the tingling sensation, but her COVID test done yesterday, 05/16/2020, came back negative, so now she is clear that it is because of the increased dose of Paxil. She also reports having low mood, lack of motivation. She is fine during her work hours, but after she comes back home, she does not want to do anything and has a lot of anxiety symptoms. Denies having any suicidal or homicidal thoughts. She wants to try a different medication. I will wean her off Paxil and start her on Prozac. Encouraged to continue propranolol. IJN: [id number] She works for [employer] which is in [facility]. She wanted to know when she will get her COVID-19 vaccine. Told her that she will get a call from our office when her turn comes. She is also registered with [facility]. Current Outpatient Medications: ??? cetirizine (ZYRTEC) 10 [...] disorder) 2. Depression, unspecified depression type - wean off of Paxil by taking Paxil 10 mg q.d. x 1 week, Paxil 10 mg every other day x 1 week, Paxil 5 mg every other day x 1 week and then stop - start FLUoxetine (PROzac) 10 MG q.d. today - continue propranolol (INDERAL) 10 MG t.i.d. p.r.n. - PSYCHOLOGY REFERRAL; Future 3. Hyperlipidemia, unspecified hyperlipidemia type - labs done in November 2019. Will repeat in November 2020 4. Close exposure to COVID-19 virus - COVID test done on 05/16/2020 was negative. - still quarantined Follow Up: Return in about 1 month (around 06/14/2020) for Telemed Visit. Education materials sent via the patient's [employer] account. Melonie Ochoa MD This note was dictated using [employer] fluency dictation system and there may be errors in membership sales representative. Despite proof reading the note, there may be mistakes and I apologize for those. F LIBRARIAN WORK WITH BLIND F LIBRARIAN WORK WITH BLIND documented in this encounter Plan of Treatment Upcoming Encounters Date Type Department Care Team (Late st Contact Info) Description 04/14/2024 7:00 AM CHIEF LIBRARIAN WORK WITH BLIND Appointment [facility] Mammography 1 [place] [address] Ravi Krishna MD [address] [address] 07/08/2024 9:30 AM CDT Office Visit [facility] - Pulmonology & Sleep Medicine - [place] [address] [place] [address] Abby Dinh APRN, CAREER PROFESSIONAL [address] [address] Scheduled Referrals Name Type Priority Associated Diagnoses Orde r Schedule PSYCHOLOGY REFERRAL Outpatient Referral Routine RATHUR (generalized anxiety disorder) Depression, unspecified depression type Expected: 05/17/2020, Expires: 05/17/2021 documented as of this encounter Visit Diagnoses Diagnosis ARTHUR (generalized anxiety disorder)- Primary Generalized anxiety disorder Depression, unspecified depression type Hyperlipidemia, unspecified hyperlipidemia type Close exposure to COVID-19 virus documented in this encounter Additional Health Concerns Assessment Noted Time PHQ-9 Depression Total Score: 7 11/23/19 20 10:00 AM CDT documented as of this encounter Care Teams Cable Television Technician Relationship Specialty Start Date End Date Melonie Ochoa MD PCP - General Family Medicine 11/12/18 02/16/23 Lucero Hood MD Obstetrics & Gynecology 03/20/16 documented as of this encounter
--- OUTSIDE RECORDS SUMMARY | 2024-04-11 00:50 | XMS_ITS | Encounter Summary ---
Author Organization [facility] Address [address] [place] [address] Phone Care Team Providers Care Associate Professor Of Violin Name Role Phone Lucero Hood MD Unavailable Unavail able Natalia Ochoa MD Primary Care Provider Encounter Details Date Type Department Care Team (Late st Contact Info) Description 12/02/2019 Telephone [facility] - Primary Care - [place] [address] [place] [address] Natalia Ochoa MD [address] [place] [address] Social History Tobacco Use Types [...] suspected to have Coronavirus / COVID-19? Yes 11/30/2019 9:52 AM CDT documented as of this encounter Miscellaneous Notes * Addendum Note - Martha Garsia RMA - 01/02/2020 12:59 PM CDTAddended by: KRISTEN GARSIA on: 01/02/2020 12:59 PM Modules accepted: Orders * Telephone Encounter - Natalia Ochoa MD - 12/02/2019 3:43 PM CDT Noted. * Telephone Encounter - Judith Oquendo RN - 12/02/2019 3:02 PM CDT Phoned patient to schedule covid testing. Patient states she already has an appointment at [facility] for[facility] and wants to just go there. Forwarding as FYI * Addendum Note - Natalia Ochoa MD - 12/02/2019 1:51 PM CDTAddended by: NATALIA OCHOA on: 12/02/2019 01:51 PM Modules accepted: Orders * Telephone Encounter - Natalia Ochoa MD - 12/02/2019 1:50 PM CDT COVID 19 PCR ordered. * Telephone Encounter - Funmilayo Booth RN - 12/02/2019 10:51 AM CDT Pt calling, having covid syptoms cough sore throat nausea ect. Wants test. documented in this encounter Plan of Treatment Upcoming Encounters Date Type Department Care Team (Late st Contact Info) Description 04/14/2024 7:00 AM MUFF WINDER Appointment [facility] 1 [place] [address] Ravi Krishna MD [address] [facility] [address] [place] [address] 07/08/2024 9:30 AM CDT Office Visit [facility] - Pulmonology & Sleep Medicine - [place] [address] [place] [address] Abby Dinh APRN, CYANIDE POT HARDENER #2 [facility] [address] [place] [address] documented as of this encounter Visit Diagnoses Diagnosis Cough- Primary Sore throat Acute pharyngitis documented in this encounter Additional Health Concerns Infection Onset Date Last Indicated Resolved Time COVID - 19 12/02/2019 12/02/2019 12/30/2019 12:1 8 AM CDT Assessment Noted Time PHQ-9 Depression Total Score: 7 11/23/19 20 10:00 AM CDT documented as of this encounter Care Teams Associate Professor Of Violin Relationship Specialty Start Date End Date Natalia Ochoa MD PCP - General Family Medicine 11/12/18 02/16/23 Lucero Hood MD Obstetrics & Gynecology 03/20/16 documented as of this encounter
--- OUTSIDE RECORDS SUMMARY | 2024-04-11 00:50 | XMS_ITS | Encounter Summary ---
Author Organization [facility] Care Team Providers Care Amusement Park Entertainer Name Role Phone Lucero Hood MD Unavailable Unavail able Melonie Ochoa MD Primary Care Provider [phone] Encounter Details Date Type Department Care Team (Latest Contact Info) Description 11/15/2019 Travel Social History Tobacco Use Types Packs/Day [...] st Contact Info) Description 04/14/2024 7:00 AM MANAGER LOCAL [facility] 1 [place] [phone] Ravi Krishna MD [address] [facility] [address] [place], [place] [phone] 07/08/2024 9:30 AM CDT Office Visit [facility] - Pulmonology & Sleep Medicine - [place] [address]2 [place] [address] Abby Dinh APRN, PANEL CUTTER [address] [address] documented as of this encounter Visit Diagnoses Not on filedocumented in this encounter Care Teams Amusement Park Entertainer Relationship Specialty Start Date End Date Melonie Ochoa MD PCP - General Family Medicine 11/12/18 02/16/23 Lucero Hood MD Obstetrics & Gynecology 03/20/16 documented as of this encounter
--- OUTSIDE RECORDS SUMMARY | 2024-04-11 00:50 | XMS_ITS | Encounter Summary ---
Author Organization [facility] [employer] Care Team Providers Care Geriatric Nurse Practitioner Name Role Phone Lucero Hood MD Unavailable Unavail able Melonie Ochoa MD Primary Care Provider Encounter Details Date Type Department Care Team (Latest Contact Info) Description 05/17/2020 Travel Social History Tobacco Use Types Packs/Day [...] Master's degree (e.g., MA, MS, Marcellus, MEd, WEIGHT AND TEST BAR CLERK, JOEY) 05/07/2020 Sexually Active Control Partners [...] Coronavirus / COVID-19? Yes 05/17/2020 1:17 PM ASSISTANT DRAFTER documented as of this encounter Plan of Treatment Upcoming Encounters Date Type Department Care Team (Late st Contact Info) Description 04/14/2024 7:00 AM ASSISTANT DRAFTER Appointment [facility] Mammography 1 [place] [phone] Ravi Krishna MD [address] [facility] [address] [place] [address] 07/08/2024 9:30 AM CDT Office Visit [facility] - Pulmonology & Sleep Medicine - [place] [address] [place] [address] Abby Dinh APRN, FREIGHT CAR CLEANER DELTA SYSTEM #2 [facility] [address] [place] [address] documented as of this encounter Visit Diagnoses Not on filedocumented in this encounter Additional Health Concerns Assessment Noted Time PHQ-9 Depression Total Score: 7 11/23/19 20 10:00 AM CDT documented as of this encounter Care Teams Geriatric Nurse Practitioner Relationship Specialty Start Date End Date Melonie Ochoa MD PCP - General Family Medicine 11/12/18 02/16/23 Lucero Hood MD Obstetrics & Gynecology 03/20/16 documented as of this encounter
--- OUTSIDE RECORDS SUMMARY | 2024-04-11 00:50 | XMS_ITS | Encounter Summary ---
Author Organization [facility] Care Team Providers Care Perforating Machine Operator Name Role Phone Lucero Hood MD Unavailable Unavail able Melonie Ochoa MD Primary Care Provider Encounter Details Date Type Department Care Team (Latest Contact Info) Description 06/04/2020 Travel Social History Tobacco Use Types Packs/Day [...] Master's degree (e.g., MA, MS, Marcellus, MEd, LINKING MACHINE OPERATOR, JOEY) 05/07/2020 Sexually Active Control [...] have Coronavirus / COVID-19? No / Unsure 06/04/2020 9:05 AM ESCALATOR MECHANIC documented as of this encounter Plan of Treatment Upcoming Encounters Date Type Department Care Team (Late st Contact Info) Description 04/14/2024 7:00 AM ESCALATOR MECHANIC Appointment [facility] Mammography 1 [place] [phone] Ravi Krishna MD [address] [facility] [address] [place] [address] 07/08/2024 9:30 AM CDT Office Visit [facility] - Pulmonology & Sleep Medicine - [place] [address] [place] [address] Abby Dinh APRN, SSN/SSBN WEAPONS EQUIPMENT OPERATOR #2 [facility] [address] [place] [address] documented as of this encounter Visit Diagnoses Not on filedocumented in this encounter Additional Health Concerns Assessment Noted Time PHQ-9 Depression Total Score: 9 06/04/19 21 9:00 AM ESCALATOR MECHANIC documented as of this encounter Care Teams Perforating Machine Operator Relationship Specialty Start Date End Date Melonie Ochoa MD PCP - General Family Medicine 11/12/18 02/16/23 Lucero Hood MD Obstetrics & Gynecology 03/20/16 documented as of this encounter
--- OUTSIDE RECORDS SUMMARY | 2024-04-11 00:50 | XMS_ITS | Encounter Summary ---
Author Organization [facility] Care Team Providers Care Protection Consultant Name Role Phone Lucero Hood MD Unavailable Unavail able Melonie Ochoa MD Primary Care Provider Encounter Details Date Type Department Care Team (Latest Contact Info) Description 11/18/2019 Travel Social History Tobacco Use Types Packs/Day [...] have Coronavirus / COVID-19? No / Unsure 11/18/2019 7:31 AM CDT documented as of this encounter Plan of Treatment Upcoming Encounters Date Type Department Care Team (Late st Contact Info) Description 04/14/2024 7:00 AM INSPECTOR PUBLICATIONS [facility]ointment [facility] M[facility] 1 [place] [phone] Ravi Krishna MD [address] [facility] [address] [place], [place] [phone] 07/08/2024 9:30 AM CDT [facility] - [place] #2 [place] [address] Abby Dinh APRN, DISABILITY SERVICES COORDINATOR #[address] [address] documented as of this encounter Visit Diagnoses Not on filedocumented in this encounter Care Teams Protection Consultant Relationship Specialty Start Date End Date Melonie Ochoa MD PCP - General Family Medicine 11/12/18 02/16/23 Lucero Hood MD Obstetrics & Gynecology 03/20/16 documented as of this encounter
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
--- OUTSIDE RECORDS SUMMARY | 2024-04-11 00:50 | XMS_ITS | Encounter Summary ---
Author Organization [facility] Address [address] [place] [address] Phone Care Team Providers Care Caramel Candy Maker Helper Name Role Phone Lucero Hood MD Unavailable Unavail able Melonie Ochoa MD Primary Care Provider [phone] Reason for Visit * Reason Comments Chest Pain Encounter Details Date Type Department Care Team (Late st Contact Info) Description 11/20/2019 1:04 AM CDT - 11/20/2019 3:00 AM CDT Emergency [facility] Emergency 1 [place] [address] Chandler Fink MD [address] [place] [address] Hypokalemia Discharge Disposition: Discharged to home or Selfcare [...] have Coronavirus / COVID-19? No / Unsure 11/20/2019 12:56 AM CDT documented as of this encounter Last Filed Vital Signs Vital Sign Reading Time Taken Comments Blood Pressure 112/70 11/20/2019 2:45 AM CDT Pulse 63 11/20/2019 2:45 AM CDT Temperature 36.1 ??C (97 ??F) 11/20/2019 12:57 AM CDT Respiratory Rate 17 11/20/2019 2:45 AM CDT Oxygen Saturation 98% 11/20/2019 2:45 AM CDT Inhaled Oxygen Concentration - - Weight 105.2 kg (232 lb) 11/20/2019 12:57 AM CDT Height 167.6 cm (5' 6 ) 11/20/2019 12:57 AM CDT Body Mass Index 37.45 11/20/2019 12:57 AM CDT documented in this encounter Discharge Instructions * Attachments The following attachments cannot be sent through Care Everywhere. * Anxiety, Your Body's Response to ([place]) * Hypokalemia ([place]) documented in this encounter Medications at Time [...] route 2 times daily. 1 Bottle 11/09/2018 ALPRAZolam (XANAX) 0.5 MG Tablet Take 0.5 mg by mouth 2 times daily as needed. 05/07/2020 PARoxetine (PAXIL) 10 MG Tablet Take 10 mg by mouth daily. 05/07/2020 documented as of this encounter ED Notes * Rosie Barillas RN - 11/20/2019 2:59 AM CDT Patient discharged. Discharge instructions and patient educational material reviewed with patient; questions and concerns addressed; patient verbalizes understanding, using teach back. Patient ambulated out of ed with steady gait with all personal belongings. * Crispin Baker RN - 11/20/2019 2:33 AM CDT Report given to Rosie REECE * Chandler Fink MD - 11/20/2019 1:52 AM CDTAssociated Order(s): EKG 12 LEAD Chief Complaint Patient presents with ??? Chest Pain 39-year-old female presenting with concern about whether she is having an anxiety attack or heart attack. 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 Today earlier around 3:00 p.m. she was working and felt heaviness in her chestdiscomfort became very anxious, and then developed some right numbness. She distracting herself forwhile but the right arm discomfort has persisted. She has never had anything like this before. She recently started Celexa for anxiety and reportedly was prescribed Ativan but has not been using. Sheotherwise takes no medications on regular basis and has chronic underlying medical conditions at this time. She does not have significant shortness or breath no nausea no vomiting diarrhea, no diaphoresis. No current facility-administered medications for this encounter. Current Outpatient Medications Medication Sig Dispense Refill ??? ALPRAZolam (XANAX) 0.5 MG Tablet Take 0.5 mg by mouth 2 times daily as needed. ??? cetirizine (ZYRTEC) 10 MG Tablet Take [...] route 2 times daily. 1 Bottle 0 ??? PARoxetine (PAXIL) 10 MG Tablet Take 10 mg by mouth daily. No Known Allergies Past Medical History Positives Diagnosis Date ??? Endometriosis of uterus Past Surgical History: Procedure Laterality Date ??? APPENDECTOMY ??? CARDIAC SURG PROCEDURE UNLIST ??? EXPLORATORY OF ABDOMEN ??? HYSTERECTOMY ??? SALPINGO-OOPHORECTOMY Right ??? TUBAL LIGATION Social History Socioeconomic History ??? Marital status: Spouse name: Not on file ??? Number of children: Not on file ??? Years of education: Not on file ??? Highest education level: Not on file Occupational History ??? Not on file Social Needs ??? Financial resource strain: Not on file ??? Food insecurity Worry: Not on file Inability: Not on file ??? Transportation needs Medical: Not on file Non-medical: Not on file Tobacco Use ??? Smoking status: Never Smoker ??? Smokeless tobacco: Never Used Substance and Sexual Activity ??? Alcohol use: Yes Alcohol/week: 4.2 oz Types: 7 Cans of beer per week ??? Drug use: No ??? Sexual activity: Yes Lifestyle ??? Physical activity Days per week: Not on file Minutes per session: Not on file ??? Stress: Not on file Relationships ??? Social connections Talks on phone: Not on file Gets together: Not on file Attends rastafarian service: Not on file Active member of club or organization: Not on file Attends meetings of clubs or organizations: Not on file Relationship status: Not on file ??? Intimate partner violence Fear of current or ex partner: Not on file Emotionally abused: Not on file Physically abused: Not on file Forced sexual activity: Not on file Other Topics Concern ??? Not on file Social History Narrative ??? Not on file BP 112/70 Pulse 63 Temp 97 ??F (36.1 ??C) (Temporal) Resp 17 Ht 5' 6 (1.676 m) Wt 232 lb(105.2 kg) SpO2 98% BMI 37.45 kg/m?? Review of Systems Constitutional: Negative for activity change, chills and fever. Respiratory: Positive for chest tightness. Negative for shortness of breath, wheezing and stridor. Gastrointestinal: Negative for abdominal pain, diarrhea and nausea. Neurological: Positive for numbness. All other systems reviewed and are negative. Physical Exam Vitals signs and nursing note reviewed. SUSY: Head: Normocephalic and atraumatic. Mouth/Throat: Mouth: Mucous membranes are moist. Eyes: Extraocular Movements: Extraocular movements intact. Conjunctiva/sclera: Conjunctivae normal. Neck: Musculoskeletal: Normal range of motion. Cardiovascular: Rate and Rhythm: Normal rate and regular rhythm. Pulmonary: Effort: Pulmonary effort is normal. Abdominal: General: Abdomen is flat. Palpations: Abdomen is soft. Musculoskeletal: Normal range of motion. Skin: General: Skin is warm and dry. Capillary Refill: Capillary refill takes less than 2 seconds. Neurological: General: No focal deficit present. Mental Status: She is alert and oriented to person, place, and time. Psychiatric: Behavior: Behavior normal. EKG 12 LEAD Performed by: Chandler Fink MD Authorized by: Chandler Fink MD Interpretation: Interpretation: non-specific Rate: ECG rate: 67 ECG rate assessment: normal Rhythm: Rhythm: sinus rhythm Ectopy: Ectopy: none QRS: QRS axis: Normal QRS intervals: Normal Conduction: Conduction: normal ST segments: ST segments: Normal T waves: T waves: normal Imaging Results XR CHEST 2 VIEWS (Final result) Result time 11/20/19 03:15:34 Final result by Fransico Gallardo MD (11/20/19 03:15:34) Impression: IMPRESSION: No acute cardiopulmonary abnormality. Narrative: EXAM DESCRIPTION: XR CHEST 2 VIEWS REASON FOR STUDY: Acute chest discomfort TECHNIQUE: Frontal and lateral radiographic views of the chest acquired. COMPARISON: 03/01/2015 FINDINGS: LUNGS/PLEURA: No focal consolidation or pneumothorax. No pleural effusion. HEART/MEDIASTINUM: Heart size is normal. Normal mediastinal and hilar contours. HARDWARE/LINES/TUBES: None. BONES: No acute findings. OTHER: No other significant finding. THIS IS AN ELECTRONICALLY VERIFIED FINAL REPORT 11/20/2019 3:12 AM - Electronically signed by Fransico Gallardo BB: TIMBO Report ID: [id number] Reading Location: [address] Number of Diagnoses or Management Options Amount and/or Complexity of Data Reviewed Clinical lab tests: ordered and reviewed Tests in the radiology section of CPT??: ordered and reviewed Tests in the medicine section of CPT??: ordered and reviewed Decide to obtain previous medical records or to obtain history from someone other than the patient:yes Independent visualization of images, tracings, or specimens: yes Patient presented with nonspecific chest pain that resolved questionable arm numbness? No focal neurologic deficits otherwise, felt better by the end of her ER visit, negative cardiac enzyme, normal EKG normal chest x-ray. She was mildly hypokalemic which may have contributed to any feeling of paresthesia or dysesthesia. This was repleted she has follow-up later this week with her PCP. Reviewed: previous chart, nursing note and vitals Interpretation: labs, ECG and x-ray Clinical Impression 1. Anxiety attack 2. Hypokalemia * Crispin Baker RN - 11/20/2019 1:21 AM CDT Pt to ER room 2 w//c/o numbness in the right arm starting at 0000 today. Pt states that she had chest pain earlier today at approx 1500. Pt denies injury but states that she has been anxious and has been having panic attacks. Pt denies N/V, dizziness, and LOC but c/o diaphoresis. Pt placed on cardiac protocol: Pt placed on BP monitor, SpO2 monitor, and manager monitoring. EKG attained. * Al Fuller RN - 11/20/2019 1:02 AM CDT Pt to triage with c/o possible anxiety attack. States that she has been having chest pain since around 1500 today. States that she was at work and was very stressed out. States she walked away from what she was doing and came back to it later. Pain has been fairly constant. Also states that her right arm feels like I have a pinched nerve. Denies any other sx at this time. documented in this encounter Plan of Treatment Upcoming Encounters Date Type Department Care Team (Late st Contact Info) Description 04/14/2024 7:00 AM HOME MAKER Appointment [facility] Mammography [address] [place] [address] Ravi Krishna MD [address] [facility] [address] [place] [address] 07/08/2024 9:30 AM CDT [facility] [address] [place] [address] Abby Dinh, SQUARE CUTTER, BRAIN PICKER [address]2 [facility] [address] [place] [address] documented as of this encounter Procedures Procedure Name Priority Date/Time Associated Diagnosis Comments XR CHEST 2 VIEWS STAT 11/20/2019 2:55 AM CDT EXTRA TUBES STAT 11/20/2019 1:56 AM CDT GOLD TOP TUBE STAT 11/20/2019 1:56 AM CDT BLUE TOP TUBE STAT 11/20/2019 1:56 AM CDT CBC WITH AUTO DIFFERENTIAL STAT 11/20/2019 1:56 AM CDT TROPONIN I (TRP I) STAT 11/20/2019 1: 56 AM CDT CMP (COMPREHENSIVE METABOLIC PANEL) STAT 11/20/2019 1:56 AM CDT COMPLETE BLOOD COUNT (CBC) WITH DIFF STAT 11/20/2019 1:56 AM CDT EKG 12 LEAD STAT 11/20/2019 1:15 AM CDT documented in this encounter Results * XR CHEST 2 VIEWS (11/20/2019 2:55 AM CDT) Anatomical Region Laterality Modality Chest N/A Digital Radiogra phy 11/20/2019 3:12 AM CDT Impressions 11/20/2019 3:15 AM CDT IMPRESSION: ?? No acute cardiopulmonary abnormality. Narrative 11/20/2019 3:15 AM CDT EXAM DESCRIPTION: ?? XR CHEST 2 VIEWS REASON FOR STUDY: ?? Acute chest discomfort TECHNIQUE: ?? Frontal and lateral radiographic views of the chest acquired. COMPARISON: ?? 03/01/2015 FINDINGS: ??LUNGS/PLEURA: ??No focal consolidation or pneumothorax. No pleural effusion. HEART/MEDIASTINUM: ??Heart size is normal. Normal mediastinal and hilar contours. HARDWARE/LINES/TUBES: ??None. BONES: ??No acute findings. OTHER: ??No other significant finding. THIS IS AN ELECTRONICALLY VERIFIED FINAL REPORT 11/20/2019 3:12 AM - Electronically signed by Fransico Gallardo BB: BB D: ??11/20/2019 3:12 AM T: ??11/20/2019 3:12 AM Report ID: [id number] Reading Location: ??[id number] Procedure Note Fransico Gallardo MD - 11/20/2019 EXAM DESCRIPTION: XR CHEST 2 VIEWS REASON FOR STUDY: Acute chest discomfort TECHNIQUE: Frontal and lateral radiographic views of the chest acquired. COMPARISON: 03/01/2015 FINDINGS: LUNGS/PLEURA: No focal consolidation or pneumothorax. No pleural effusion. HEART/MEDIASTINUM: Heart size is normal. Normal mediastinal and hilar contours. HARDWARE/LINES/TUBES: None. BONES: No acute findings. OTHER: No other significant finding. THIS IS AN ELECTRONICALLY VERIFIED FINAL REPORT 11/20/2019 3:12 AM - Electronically signed by Fransico Gallardo BB: BB Report ID: [id number] Reading Location: [id number] IMPRESSION: No acute cardiopulmonary abnormality. Chandler Fink MD IMG DIAGNOSTIC ORDERAB LES Final Result * Gold Top Tube (11/20/2019 1:56 AM CDT) Blood Butterfly Punctu re / Unknown 11/20/2019 1:56 AM CDT 11/20/2019 2:07 AM CDT us Chandler Fink MD CHEMISTRY ORDERABLES F inal Result [facility] [address] [place] [address] * Blue Top Tube (11/20/2019 1:56 AM CDT) Blood Butterfly Punctu re / Unknown 11/20/2019 1:56 AM CDT 11/20/2019 2:07 AM CDT us Chandler Fink MD HEMATOLOGY ORDERABLES Final Result [facility] [address] [place] [address] * CBC with Auto Differential (11/20/2019 1:56 AM CDT) WBC 9.30 4.00 - 12.00 10(3)/mcL 11/20/2019 2:09 AM CDT [facility] RBC 4.48 3.80 - 5.30 10(6)/mcL 11/20/2019 2:09 AM CDT [facility] HEMOGLOBIN (HGB) 13.5 12.0 - 15.8 g/dL 11/20/2019 2:09 AM CDT [facility] HEMATOCRIT (HCT) 40.2 36.0 - 47.0 % 11/20/2019 2:09 AM CDT [facility] MCV 89.7 82.0 - 96.0 fL 11/20/2019 2:09 AM CDT [facility] MCH 30.1 26.0 - 34.0 pg 11/20/2019 2:09 AM CDT [facility] MCHC 33.6 31.0 - 36.0 g/dL 11/20/2019 2:09 AM CDT [facility] PLATELET COUNT 275 140 - 440 10(3)/mcL 11/20/2019 2:09 AM CDT [facility] RDW 13.0 11.8 - 15.5 % 11/20/2019 2:09 AM CDT [facility] MPV 10.3 9.7 - 12.4 fL 11/20/2019 2:09 AM CDT [facility] NEUTROPHILS 56.4 47.0 - 73.0 % 11/20/2019 2:09 AM CDT [facility] LYMPHOCYTES 32.6 18.0 - 42.0 % 11/20/2019 2:09 AM CDT [facility] MONOCYTES 9.4 4.0 - 12.0 % 11/20/2019 2:09 AM CDT [facility] EOSINOPHILS 1.3 0.0 - 5.0 % 11/20/2019 2:09 AM CDT [facility] BASOPHILS 0.3 0.0 - 1.0 % 11/20/2019 2:09 AM CDT [facility] ABSOLUTE NEUTROPHILS 5.25 1.60 - 7.70 10(3)/mcL 11/20/2019 2:09 AM CDT [facility] ABSOLUTE LYMPHOCYTES 3.03 1.30 - 3.20 10(3)/[facility] 11/20/2019 2:09 AM CDT [facility] ABSOLUTE MONOCYTES 0.87 0.20 - 1.00 10(3)/[facility] 11/20/2019 2:09 AM CDT [facility] ABSOLUTE EOSINOPHIL 0.12 0.00 - 0.40 10(3)/[facility] 11/20/2019 2:09 AM CDT [facility] ABSOLUTE BASOPHILS 0.03 0.00 - 0.10 10(3)/[facility] 11/20/2019 2:09 AM CDT [facility] NRBC PER 100 WBC 0 11/20/19 20 2:09 AM CDT [facility] Blood Butterfly Punctu re / Unknown 11/20/2019 1:56 AM CDT 11/20/2019 2:05 AM CDT us Chandler Fink MD HEMATOLOGY ORDERABLES Final Result [facility] [address] [place] [address] * (ABNORMAL) CMP (Comprehensive Metabolic Panel) (11/20/2019 1:56 AM CDT) SODIUM 133(L) 136 - 144 mmol/L 11/20/2019 2:32 AM CDT [facility] POTASSIUM 3.3(L) 3.5 - 5.1 mmol/L 11/20/2019 2:32 AM CDT [facility] CHLORIDE 101 100 - 110 mmol/L 11/20/2019 2:32 AM CDT [facility] CO2, VENOUS 22 22 - 32 mmol/L 11/20/2019 2:32 AM CDT [facility] ANION GAP 13.3 8.0 - 20.0 mmol/L 11/20/2019 2:32 AM CDT [facility] GLUCOSE 111(H) 70 - 99 mg/dL 11/20/2019 2:32 AM CDT [facility] BUN 13 6 - 20 mg/dL 11/20/2019 2:32 AM CDT [facility] CREATININE, BLOOD 0.63 0.60 - 1.10 mg/dL 11/20/2019 2:32 AM CDT [facility] BUN/CREATININE RATIO 21(H) 12 - 20 ratio 11/20/2019 2:32 AM CDT [facility] TOTAL PROTEIN 7.2 6.0 - 8.3 g/dL 11/20/2019 2:32 AM CDT [facility] ALBUMIN 4.2 3.5 - 5.2 g/dL 11/20/2019 2:32 AM CDT [facility] Comment: The colormetric methods used for the determination of Albumin may lead to falsely elevated test results in patients suffering from renal failure or insufficiency due to interference with other proteins. A/G RATIO 1.4 1.0 - 2.0 11/20/2019 2:32 AM CDT [facility] CALCIUM 9.6 8.9 - 10.3 mg/dL 11/20/2019 2:32 AM CDT [facility] T BILI <=0.2 <=1.2 mg/dL 11/20/2019 2:32 AM CDT [facility] SGOT (AST) 13 <=32 U/L 11/20/2019 2:32 AM CDT [facility] SGPT (ALT) 13 <=33 U/L 11/20/2019 2:32 AM CDT [facility] ALKALINE PHOSPHATASE 23(L) 35 - 105 U/L 11/20/2019 2:32 AM CDT [facility] GFR, EST. NONAFRICAN >60 >=60 11/20/2019 2:32 AM CDT [facility] GFR, EST. >60 >=60 020 2:32 AM CDT [facility] Comment: Creatinine Clearance is the preferred criteria for selecting drug dose adjustments in renally impaired patients. ??The GFR is provided as additional pertinent clinical information. GFR is reported in mL/min/1.73 sq m. Blood Butterfly Punctu re / Unknown 11/20/2019 1:56 AM CDT 11/20/2019 2:05 AM CDT us Chandler Fink MD CHEMISTRY ORDERABLES F inal Result Performing Organization Address [facility] Co de Phone Number [facility] [address] [place] [address] * Troponin I (Trp I) (11/20/2019 1:56 AM CDT) TROPONIN I <0.300 <=0.300 ng/mL 11/20/2019 2:28 AM CDT [facility] Blood Butterfly Punctu re / Unknown 11/20/2019 1:56 AM CDT 11/20/2019 2:06 AM CDT Chandler Fink MD CHEMISTRY ORDERABLES F inal Result [facility] [address] [place] [address] * EKG 12 LEAD (11/20/2019 1:15 AM CDT) Ventricular Rate BPM EXTERNAL EKG Atrial Rate BPM EXTERNAL EKG P-R Interval 158 ms EXTERNAL EKG QRS Duration 86 ms EXTERNAL EKG Q-T Duration 430 ms EXTERNAL EKG QTC CALCULATION 455 ms EXTERNAL EKG P Elizabeth 30 degrees EXTERNAL EKG R Elizabeth 35 degrees EXTERNAL EKG T Elizabeth 33 degrees EXTERNAL EKG 11/20/2019 1:15 AM CDT Impressions EXTERNAL EKG - 11/20/2019 7:14 AM CDT Sinus rhythm Nonspecific T changes Comparison Summary: No serial comparison made Summary: Abnormal ECG Confirmed by Clara Mcclelland [id number] on 11/20/2019 7:14:47 AM Narrative Procedure Note Partha Elizabeth MD - 11/20/2019 IMPRESSION: Sinus rhythm Nonspecific T changes Comparison Summary: No serial comparison made Summary: Abnormal ECG Confirmed by Clara Mcclelland [id number] on 11/20/2019 7:14:47 AM Chandler Fink MD IMG ECG ORDERABLES Fin al Result EXTERNAL EKG documented in this encounter Visit Diagnoses Diagnosis Anxiety attack- Primary Panic disorder without agoraphobia Hypokalemia Hypopotassemia documented in this encounter Administered Medications Inactive Administered Medications - up to 3 most recent administrations Medication Order MAR Action Action Date Dose Rate Site potassium chloride CR (KLORCON) tablet 40 mEq 40 mEq, Oral, ONCE, 1 dose, On 11/20/19 at 0300, Do not crush. Given 11/20/2019 2:46 AM CDT 40 mEq documented in this encounter Active and Recently Administered Medications Times are shown in CDT. Scheduled Medication Order 11/18/2019 11/19/2019 11/20/2019 potassium chloride CR (KLORCON) tablet 40 mEq (COMPLETED) 40 mEq, Oral, ONCE, 1 dose, On 11/20/19 at 0300, Do not crush. 0246 (Given - Provid er: Rosie Barillas RN) documented in this encounter Care Teams Caramel Candy Maker Helper Relationship Specialty Start Date End Date Melonie Ochoa MD PCP - General Family Medicine 11/12/18 02/16/23 Lucero Hood MD Obstetrics & Gynecology 03/20/16 documented as of this encounter
--- OUTSIDE RECORDS SUMMARY | 2024-04-11 00:50 | XMS_ITS | Encounter Summary ---
Author Organization [facility] Address [address] [place] [address] Phone Care Team Providers Care Asphalt Patcher Name Role Phone Lucero Hood MD Unavailable Unavail able Melonie Ochoa MD Primary Care Provider Reason for Visit * Reason Onset Date Comments Results 05/11/2019 mamm Encounter Details Date Type Department Care Team (Late st Contact Info) Description 05/11/2019 Telephone [facility] - [place] [address] [place] [id number] Melonie Ochoa MD [address] [place] [address] Results (mamm) Social History Tobacco Use Types Packs/Day Years [...] Telephone Encounter - Eugenie Thomas RN - 05/11/2019 2:05 PM ENERGY CONSERVATION SPECIALIST Successfully faxed report to Dr. Ravi Krishna GY CONSERVATION SPECIALIST documented in this encounter Plan of Treatment Upcoming Encounters Date Type Department Care Team (Late st Contact Info) Description 04/14/2024 7:00 AM ENERGY CONSERVATION SPECIALIST Appointment [facility] Mammography [address] [facility] [place] [address] Ravi Krishna MD [address] [facility] [address] [facility] [address] [place] [address] 07/08/2024 9:30 AM CDT [facility] [address] [place] [address] Abby Dinh APRN, STEREO EQUIPMENT SALESPERSON #2 [facility] [address] [place] [address] documented as of this encounter Visit Diagnoses Not on filedocumented in this encounter Care Teams Asphalt Patcher Relationship Specialty Start Date End Date Melonie Ochoa MD PCP - General Family Medicine 11/12/18 02/16/23 Lucero Hood MD Obstetrics & Gynecology 03/20/16 documented as of this encounter
--- OUTSIDE RECORDS SUMMARY | 2024-04-11 00:50 | XMS_ITS | Encounter Summary ---
Author Organization [facility] Care Team Providers Care Instructor Traffic Safety Name Role Phone Lucero Hood MD Unavailable Unavail able Melonie Ochoa MD Primary Care Provider Encounter Details Date Type Department Care Team (Latest Contact Info) Description 11/20/2019 Travel Social History Tobacco Use Types Packs/Day [...] st Contact Info) Description 04/14/2024 7:00 AM LASER BEAM CUTTER [facility] [address] [place] [id number] Ravi Krishna MD [address] [facility] [address] [place], [place] [id number] 07/08/2024 9:30 AM CDT [facility] - [place] [address] [place] [phone] Abby Dinh APRN, LEGEND MAKER [address] [address] documented as of this encounter Visit Diagnoses Not on filedocumented in this encounter Care Teams Instructor Traffic Safety Relationship Specialty Start Date End Date Melonie Ochoa MD PCP - General Family Medicine 11/12/18 02/16/23 Lucero Hood MD Obstetrics & Gynecology 03/20/16 documented as of this encounter
--- OUTSIDE RECORDS SUMMARY | 2024-04-11 00:50 | XMS_ITS | Encounter Summary ---
Author Organization [facility] Care Team Providers Care Gate Watch Name Role Phone Lucero Hood MD Unavailable Unavail able Melonie Ochoa MD Primary Care Provider [phone] Encounter Details Date Type Department Care Team (Latest Contact Info) Description 06/25/2020 Travel Social History Tobacco Use Types Packs/Day [...] degree (e.g., MA, MS, Marcellus, MEd, HAND ETCHER, JOEY) 05/07/2020 Sexually Active Control Partners Comments [...] have Coronavirus / COVID-19? No / Unsure 06/25/2020 4:05 PM CDT documented as of this encounter Plan of Treatment Upcoming Encounters Date Type Department Care Team ( st Contact Info) Description 04/14/2024 7:00 AM PROJECT HIRE Appointment [facility] Mammography 1 [place] [phone] Ravi Krishna MD [address] [facility] [address] [place] [address] 07/08/2024 9:30 AM CDT Office Visit [facility] - Pulmonology & Sleep Medicine - [place] #2 [place] [address] Abby Dinh APRN, MOTION STUDY ENGINEER #2 [facility] [address] [place] [address] documented as of this encounter Visit Diagnoses Not on filedocumented in this encounter Additional Health Concerns Assessment Noted Time PHQ-9 Depression Total Score: 9 06/04/19 21 9:00 AM PROJECT HIRE documented as of this encounter Care Teams Gate Watch Relationship Specialty Start Date End Date Melonie Ochoa MD PCP - General Family Medicine 11/12/18 02/16/23 Lucero Hood MD Obstetrics & Gynecology 03/20/16 documented as of this encounter
--- OUTSIDE RECORDS SUMMARY | 2024-04-11 00:50 | XMS_ITS | Encounter Summary ---
Author Organization [facility] Address [address] [place] [address] Phone Care Team Providers Care Minute Clerk Name Role Phone Lucero Hood MD Unavailable Melonie Erwin MD Primary Care Provider [phone] Reason for Visit * Reason Comments Anxiety patient states that her OBGYN has given her PAXIL and ALPRAZOLAM recently for anxiety. Patient states that her job is a trigger for her. 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 Patient states that she cries when she talks about her job Encounter Details Date Type Department Care Team (Late st Contact Info) Description 11/23/2019 10:30 AM CDT Office Visit [facility] - Primary Care - [place] [address] [place] [phone] Kaity Blue, MANAGER NEW PRODUCT, METAL TURNER [address] [place] [address] Preventative health care (Adult) (Primary Dx); ARTHUR (generalized anxiety disorder) Discharge Disposition: Discharged to home or Selfcare Social History Tobacco Use Types Packs/Day Years Used Date Smoking Tobacco: Never Smokeless Tobacco: Never Tobacco Cessation:Counseling Given: Yes Alcohol Use Standard Drinks/Week Comments Yes 7 [...] Sign Reading Time Taken Comments Blood Pressure 104/72 11/23/2019 10:36 AM CDT Pulse 67 11/23/2019 10:36 AM CDT Temperature 36.4 ??C (97.5 ??F) 11/23/2019 1 0:36 AM CDT Respiratory Rate 20 11/23/2019 10:3 6 AM CDT Oxygen Saturation 98% 11/23/2019 10: 36 AM CDT Inhaled Oxygen Concentration - - Weight 107.8 kg (237 lb 9.6 oz) 020 10:36 AM CDT Height 167.6 cm (5' 6 ) 11/23/2019 10:3 6 AM CDT Body Mass Index 38.35 11/23/2019 10:36 AM CDT documented in this encounter Functional Status * Over the [...] diff erent things 3 11/23/2019 10:00 AM CDT Kristine Sierra C MA Trouble relaxing 3 [...] Sierra CMA documented as of this encounter Patient Instructions * Patient Instructions* Kaity Blue APN, CNP - 11/23/2019 10:30 AM CDT Take all medications as prescribed. Please continue with a balanced lifestyle of exercise and healthy eating. If any question, please call. Thanks for coming in today! To continue to provide excellent patient care, you may receive a survey regarding your visit today.To help us serve you better, please complete and return. These surveys are completely anonymous. documented in this encounter Progress Notes * Kaity Blue APN, CNP - 11/23/2019 10:30 AM CDT HPI Patient is a 39 y.o. female who presents today for preventative exam. Recent lab work was essentially normal except for cholesterol of 230 and LDL 155. HDL 56.9. She was recently in ER for anxiety attack, she thought she was having a heart attack. 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 She is on paxil 10mg daily and xanax 0.5mg bid prn. She has been on these for 1 week. States the xanax is helping. She states her work is very stressful with teaching hybrid. Health maintenance: Due for pap, sees ob/gyne. ROS Fourteen point review of systems negative except as documented in HPI. Physical Exam Vitals signs and nursing note reviewed. Constitutional: General: She is not in acute distress. Appearance: Normal appearance. She is well-developed. HENT: Head: Normocephalic and atraumatic. Right Ear: Tympanic membrane, ear canal and external ear normal. Left Ear: Tympanic membrane, ear canal and external ear normal. Nose: Nose normal. Mouth/Throat: Mouth: Mucous membranes are moist. Pharynx: Oropharynx is clear. No oropharyngeal exudate. Eyes: Conjunctiva/sclera: Conjunctivae normal. Pupils: Pupils are equal, round, and reactive to light. Neck: Musculoskeletal: Normal range of motion and neck supple. Thyroid: No thyromegaly. Cardiovascular: Rate and Rhythm: Normal rate and regular rhythm. Heart sounds: Normal heart sounds. No murmur. No friction rub. No gallop. Pulmonary: Effort: Pulmonary effort is normal. No respiratory distress. Breath sounds: Normal breath sounds. No wheezing or rales. Chest: Chest wall: No tenderness. Abdominal: General: Bowel sounds are normal. There is no distension. Palpations: Abdomen is soft. There is no mass. Tenderness: There is no abdominal tenderness. There is no guarding or rebound. Musculoskeletal: Normal range of motion. General: No tenderness. Lymphadenopathy: Cervical: No cervical adenopathy. Skin: General: Skin is warm and dry. Neurological: Mental Status: She is alert and oriented to person, place, and time. Coordination: Coordination normal. Psychiatric: Mood and Affect: Mood normal. Behavior: Behavior normal. Thought Content: Thought content normal. Judgment: Judgment normal. Vitals: 11/23/19 1036 BP: 104/72 BP Location: Right Arm BP Position: Sitting BP Cuff Size: Regular Pulse: 67 Resp: 20 Temp: 97.5 ??F (36.4 ??C) TempSrc: Temporal SpO2: 98% Weight: 237 lb 9.6 oz (107.8 kg) Height: 5' 6 (1.676 m) Body mass index is 38.35 kg/m??. Past, family, and social history reviewed and updated in the chart. Assessment/Plan: 1. Preventative health care (Adult) Encouraged yearly exams - COMPLETE BLOOD COUNT (CBC) WITH DIFF; Future - CMP (COMPREHENSIVE METABOLIC PANEL); Future - THYROID SCREEN WITH REFLEX; Future - LIPID PANEL; Future 2. ARTHUR (generalized anxiety disorder) Cont to see ob for tx Patient Instructions Take all medications as prescribed. Please continue with a balanced lifestyle of exercise and healthy eating. If any question, please call. Thanks for coming in today! To continue to provide excellent patient care, you may receive a survey regarding your visit today.To help us serve you better, please complete and return. These surveys are completely anonymous. Patient verbalizes understanding and agrees with plan [...] the patient. Documentation for this visit on 11/23/19 was completed using a template. I have seen and examined the patient. Everything documented was personally performed at this visit with the necessary additions, deletions and changes made as appropriate. * Kristine Mendez CMA - 11/23/2019 10:30 AM CDT Airam Munoz is a 39 y.o. female with current BMI: Body mass index is 38.35 kg/m??. Interventions discussed including: encourage daily physical activity and well- balanced diet. * Kristine Mendez CMA - 11/23/2019 10:30 AM CDT Airam Munoz, 39 y.o., female is here for Anxiety (patient states that her OBGYN has given her PAXIL and ALPRAZOLAM recently for anxiety. Patient states that her job is a trigger for her. 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 Patient states that she cries when she talks about her job ) Medication Refills: Patient reports/denies need for medication refills. Orders Pended: no Requested Prescriptions No prescriptions requested or ordered in this encounter Home Medications Medication Sig Start Date End Date Taking? Authorizing Provider ALPRAZolam (XANAX) 0.5 MG Tablet Take 0.5 mg by mouth 2 times daily as needed. Yes Emergency, Nurse, RN cetirizine (ZYRTEC) 10 MG Tablet Take 10 mg by mouth daily. Yes Brian Pena MD Cholecalciferol (VITAMIN D PO) Take 1,200 Units by mouth daily. Yes ProviderBrian MD EST ESTROGENS-METHYLTEST PO Take by mouth. Yes Emergency, Nurse, RN fluticasone (FLONASE) 50 MCG/ACT Suspension 2 Sprays by Nasal route daily. Use in each nostril as directed. 11/09/18 Yes Melonie Ochoa MD Multiple Vitamin (MULTI-VITAMIN PO) Take by mouth daily. Yes ProviderBrian MD oxymetazoline (AFRIN NASAL SPRAY) 0.05 % Solution 2 Sprays by Nasal route 2 times daily. 11/09/18 Yes Melonie Ochoa MD PARoxetine (PAXIL) 10 MG Tablet Take 10 mg by mouth daily. Yes Emergency, Nurse, RN There are no discontinued medications. I have reviewed the home medication list with the patient and have reconciled discrepancies. The list is accurate to the best of my knowledge. Smoking Status: Social History Tobacco Use ??? Smoking status: Never Smoker ??? Smokeless tobacco: Never Used Substance Use Topics ??? Alcohol use: Yes Alcohol/week: 4.2 oz Types: 7 Cans of beer per week ??? Drug use: No Smoking Cessation Counseling Given: no Health Care Maintenance: Health Maintenance Due Topic Date Due ??? Pap Smear 09/13/2017 Orders Pended: no The following BPA's have been addressed with the patient today: Depression, anxiety documented in this encounter Plan of Treatment Upcoming Encounters Date Type Department Care Team (Late st Contact Info) Description 04/14/2024 7:00 AM METHOD CONSULTANT [facility]ment [facility] 1 [place] [address] Ravi Krishna MD [address] [address] 07/08/2024 9:30 AM CDT [facility] #2 [place] [address] Abby Dinh APRN, METAL TURNER #[address] [address] documented as of this encounter Visit Diagnoses Diagnosis Preventative health care (Adult)- Primary Routine general medical examination at a health care facility ARTHUR (generalized anxiety disorder) Generalized anxiety disorder documented in this encounter Additional Health Concerns Assessment Noted Time PHQ-9 Depression Total Score: 7 08/12/20 20 10:00 AM CDT documented as of this encounter Care Teams Minute Clerk Relationship Specialty Start Date End Date Melonie Ochoa MD PCP - General Family Medicine 11/12/18 02/16/23 Lucero Hood MD Obstetrics & Gynecology 03/20/16 documented as of this encounter
--- OUTSIDE RECORDS SUMMARY | 2024-04-11 00:50 | XMS_ITS | Encounter Summary ---
Author Organization [facility] Address [address] [place] [address] Phone Care Team Providers Care Beer Brewer Name Role Phone Lucero Hood MD Unavailable Unavail Melonie Wheeler MD Primary Care Provider Reason for Visit * Reason Comments Depression * Auth/Cert Specialty Diagnoses / Procedures Referred By Yanni t Referred To Contact Referral ID Status Reason Start Date Expiration Date Visits Re quested Visits Authorized [id number] 1 1 Encounter Details Date Type Department Care Team (Latest Contact Info) Description 07/09/2020 4:00 PM CDT Outpatient Clinic Visit [facility] 1 [place] [phone] Malka Coreas, MOLDER SHOULDER PAD [address] [place] [address] Major depressive disorder, recurrent episode with anxious [...] Master's degree (e.g., MA, MS, Marcellus, MEd, DENTAL TECHNICIAN INSTRUCTOR, JOEY) 05/07/2020 Sexually Active Control Partners [...] this encounter Progress Notes * Malka Coreas, MOLDER SHOULDER PAD - 07/09/2020 4:00 PM CDT [facility] BEHAVIORAL HEALTH CLINICAL PROGRESS NOTE NAME: Airam Munoz AGE: 40 y.o. DATE OF : 1980 DATE OF SERVICE: 07/09/2020 START TIME: 4:00pm END TIME: 4:45pm DIAGNOSIS: 1. Major depressive disorder, recurrent episode with anxious distress (HCC) 2. ARTHUR (generalized anxiety disorder) TREATMENT PLAN: Goals Addressed This Visit's Progress Behavioral Health ??? Behavioral Health (pt-stated) On track I need better strategies to manage my stress. Goal Reviewed with: patient today Readiness to change: Ready to change Department associated with goal: [facility] BE[facility]AVIORAL HEALTH SERVICES Steps to achieve [...] Ready to change Department associated with goal: [facility] Steps to achieve [...] automatic thoughts/intrusive thoughts. 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 Based upon the presenting problem the following [...] st Contact Info) Description 04/14/2024 7:00 AM CUSTOM TAILOR [facility]ment [facility] 1 [place] [address] Ravi Krishna MD [address] [address] 07/08/2024 9:30 AM CDT Office Visit [facility] - Pulmonology & Sleep Medicine [facility] #2 [place] [address] Abby Dinh APRN, TONGUE TRIMMER #[address] [address] documented as of this encounter Visit Diagnoses Diagnosis Major depressive disorder, recurrent episode with anxious distress (HCC)- Primary ARTHUR (generalized anxiety disorder) Generalized anxiety disorder documented in this encounter Additional Health Concerns Assessment Noted Time PHQ-9 Depression Total Score: 9 06/04/19 21 9:00 AM CUSTOM TAILOR documented as of this encounter Care Teams Beer Brewer Relationship Specialty Start Date End Date Melonie Ochoa MD PCP - General Family Medicine 11/12/18 02/16/23 Lucero Hood MD Obstetrics & Gynecology 03/20/16 documented as of this encounter
--- OUTSIDE RECORDS SUMMARY | 2024-04-11 00:50 | XMS_ITS | Encounter Summary ---
Author Organization [facility] Address [address] [place] [address] Phone Care Team Providers Care Tank Inspector Name Role Phone Lucero Hood MD Unavailable Unavail Melonie Wheeler MD Primary Care Provider Reason for Visit * Reason Comments Depression * Auth/Cert Specialty Diagnoses / Procedures Referred By Yanni t Referred To Contact Referral ID Status Reason Start Date Expiration Date Visits Re quested Visits Authorized [id number] 1 1 Encounter Details Date Type Department Care Team (Latest Contact Info) Description 06/25/2020 4:00 PM CDT [facility] 1 [place] [phone] Malka Coreas, HANG GLIDING INSTRUCTOR #1 [place] [address] Major depressive disorder, recurrent episode with anxious [...] Master's degree (e.g., MA, MS, Marcellus, MEd, JAVA DEVELOPER ANALYST, JOEY) 05/07/2020 Sexually Active Control Partners Comments [...] Patient Instructions * Patient Instructions* Malka Coreas, HANG GLIDING INSTRUCTOR - 06/25/2020 4:00 PM CDT Identifying negative thoughts that add to depression or anxiety Xjf-oo-cjenamf thinking - Looking at things in [id number] categories, with no middle ground (???If I [...] without actual evidence. You act like a gas meter reader (???He must think I???m pathetic?? ) or a correctional facility psychiatrist (???I???ll be stuck in this end job [...] the REAL evidence support your negative thoughts? documented in this encounter Progress Notes * Malka Coreas LCSW - 06/25/2020 4:00 PM CDT [facility] BEHAVIORAL HEALTH CLINICAL PROGRESS NOTE NAME: Airam Munoz AGE: 40 y.o. DATE OF : 1980 DATE OF SERVICE: 06/25/2020 START TIME: 4:00 END TIME: 4:45 DIAGNOSIS: 1. Major depressive disorder, recurrent episode with anxious distress (HCC) TREATMENT PLAN: Goals Behavioral Health ??? Behavioral Health (pt-stated) I need better strategies to manage my stress. Goal Reviewed with: patient Readiness to change: [...] distressing emotions and thoughts. ??? Behavioral Health Brigid will manage symptoms of anxiety and depression more effectively to have reduction of anxiety and depression symptoms. Goal Reviewed with: patient Readiness to change: [...] today due to the following concerns: Depression: emotionality (anger, crying, irritability) negative automatic thoughts/intrusive thoughts sleep difficulties (too much or too little). 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 It's like we are not teaching children, we are checking off boxes. This was processed. Client isfeeling wore out at the end of the day and has little energy to do anything fulfilling or even relaxing. Discussed guided relaxation apps. Client identified common automatic negative thoughts. Based upon the presenting problem the following treatment modalities were utilized. Cognitive Behavioral Therapy THERAPEUTIC INTERVENTIONS USED: This clinician provided therapeutic interventions for: Depression: increasing insight into current difficulties identifying and decreasing cognitive distortions/negative automatic thoughts contributing negatively to depressed mood and behavior identifying, verbalizing, and processing feelings effectively learning positive coping skills and utilizing them at appropriate times/when needed. Airam verbalized an understanding and responded well to interventions provided during treatment session. PROGRESS TOWARDS GOALS: Airam reported no change in symptoms. MENTAL STATUS EXAM: Airam is cooperative and friendly. Affect is mood congruent. Mood is congruent to situation. There is no current suicidal ideation.. There is no current homicidal ideation.. TREATMENT RECOMMENDATIONS/FOLLOW UP: Recommendations for follow up treatment plan: Return for follow up in 2 weeks. MALKA COREAS LCSW documented in this encounter Plan of Treatment Upcoming Encounters Date Type Department Care Team (Late st Contact Info) Description 04/14/2024 7:00 AM COMPLAINT ANALYST Appointment [facility] Mammography 1 [place] [address] Ravi Krishna MD [address] [facility] [address] [place] [address] 07/08/2024 9:30 AM CDT Office Visit [facility] - Pulmonology & Sleep Medicine - [place] [address] [place] [address] Abby Dinh APRN, RAGS LABORER [address] [facility] [address] [place] [address] documented as of this encounter Visit Diagnoses Diagnosis Major depressive disorder, recurrent episode with anxious distress (HCC)- Primary documented in this encounter Additional Health Concerns Assessment Noted Time PHQ-9 Depression Total Score: 9 06/04/19 21 9:00 AM COMPLAINT ANALYST documented as of this encounter Care Teams Tank Inspector Relationship Specialty Start Date End Date Melonie Ochoa MD PCP - General Family Medicine 11/12/18 02/16/23 Lucero Hood MD Obstetrics & Gynecology 03/20/16 documented as of this encounter
--- OUTSIDE RECORDS SUMMARY | 2024-04-11 00:50 | XMS_ITS | Encounter Summary ---
Author Organization [facility] Address [address] [place] [address] Phone Care Team Providers Care Hydroelectric Systems Technician Name Role Phone Lucero Hood MD Unavailable Unavail able Melonie Ochoa MD Primary Care Provider Reason for Visit * Reason Onset Date Comments Medication Management 05/07/2020 Anxiety 05/07/2020 Encounter Details Date Type Department Care Team (Late st Contact Info) Description 05/07/2020 [facility] [address] [place] [address] Melonie Ochoa MD [address] [place] [address] Medication Management; Anxiety Social History Tobacco Use Types Packs/Day Years [...] Master's degree (e.g., MA, MS, Marcellus, MEd, BLIND CLEANER, JOEY) 05/07/2020 Sexually Active Control Partners Comments Yes Comments No Sex and Gender Information Value Date Recorded Sex Assigned at Not on file Legal Sex Female 7:07 PM CDT Gender Identity Not on file Sexual Orientation Not on file documented as of this encounter Miscellaneous Notes * Telephone Encounter - Yusef Sanchez RN - 05/07/2020 10:21 AM CST Pt asking for an appt for med management for her anxiety. Video appt made with Kaity majano @ 1400p [employer] instructions given Negative SRAS ICATIONS SYSTEMS ANALYST documented in this encounter Plan of Treatment Upcoming Encounters Date Type Department Care Team (Late st Contact Info) Description 04/14/2024 7:00 AM APPLICATIONS SYSTEMS ANALYST Appointment [facility] Mammography 1 [place] [address] Ravi Krishna MD [address] [facility] [address] [place] [address] 07/08/2024 9:30 AM CDT [facility] - Pulmonology & Sleep Medicine - [place] #2 [place] [address] Abby Dinh APRN, SKIP HOIST OPERATOR #2 [facility] [address] [place] [address] documented as of this encounter Visit Diagnoses Not on filedocumented in this encounter Additional Health Concerns Assessment Noted Time PHQ-9 Depression Total Score: 7 11/23/19 20 10:00 AM CDT documented as of this encounter Care Teams Hydroelectric Systems Technician Relationship Specialty Start Date End Date Melonie Ochoa MD PCP - General Family Medicine 11/12/18 02/16/23 Lucero Hood MD Obstetrics & Gynecology 03/20/16 documented as of this encounter
--- OUTSIDE RECORDS SUMMARY | 2024-04-11 00:50 | XMS_ITS | Encounter Summary ---
Author Organization [facility] Address [address] [place] [address] Phone Care Team Providers Care Manager Demand Name Role Phone Lucero Hood MD Unavailable Unavail able Melonie Ochoa MD Primary Care Provider [phone] Encounter Details Date Type Department Care Team (Late st Contact Info) Description 11/30/2019 Telephone [facility] [address] [place] [address] Melonie Ochoa MD [address] [place] [address] Social History Tobacco Use Types [...] Telephone Encounter - Eugenie Thomas RN - 11/30/2019 2:05 PM CDT Called patient to inform-patient verbalized understanding. * Telephone Encounter - Melonie Ochoa MD - 11/30/2019 11:24 AM CDT Please inform patient to monitor for symptoms. She needs to wear a mask at all times. If she develops any symptoms, she can call back for COVID testing. * Telephone Encounter - Mariana Kenney RN - 11/30/2019 10:27 AM CDT Images from the original note were not included. Message from Wanda Spangler sent at 11/30/2019 ??9:56 AM CDT Summary: Melonie Ochoa MD patient was around someone who tested postive for covid19 RFC: Patient is calling in stating that she was around someone on 11/25/19 that has since tested positive for COVID-19. Asked patient covid questions, no symptoms as of right now. ??Please call Airam at [phone] (relationship to patient self) back regarding above referenced patient. Patient's Provider is Melonie Ochoa MD . Call History Type Contact Phone User 11/30/2019 09:51 AM CDT Phone (Incoming) Airam Munoz (Self) [phone] (H) Wanda Spangler Patient has an occasional headache and nauseous. Patient was given the recommendations below. Travel Screening Question Response In the last month, have you been in contact with someone who was confirmed or suspected to have Coronavirus / COVID-19? Yes Do you have any of the following symptoms? None of these Have you traveled internationally in the last month? No Travel History Travel since 10/30/19 No documented travel since 10/30/19 COVID-19 Testing Priority for Airam Munoz: 4 At this time, based on our discussion we would recommend following the CDC and firsthealth department of health guidelines, which include: ?? practicing social distancing (staying 6 feet away from others) ?? washing your hands often ?? keeping yourself hydrated ?? staying home as much as possible If you would like to be tested we would recommend that you complete a web search and review the criteria for testing at the community based sites near your location. If you do develop any symptoms please call us back. MARIANA KENNEY, RN documented in this encounter Plan of Treatment Upcoming Encounters Date Type Department Care Team (Late st Contact Info) Description 04/14/2024 7:00 AM CONSTRUCTION EQUIPMENT OVERHAULER [facility]ment [facility] M[facility] 1 [place] [address] Ravi Krishna MD [address] [facility] [address] [facility] [address] [place] [address] 07/08/2024 9:30 AM CDT Office Visit [facility] - Pulmonology & Sleep Medicine [facility] [address] [place] [address] Abby Dinh APRN, TREE MARKER #2 [facility] [address] [place] [address] documented as of this encounter Visit Diagnoses Not on filedocumented in this encounter Additional Health Concerns Assessment Noted Time PHQ-9 Depression Total Score: 7 11/23/19 20 10:00 AM CDT documented as of this encounter Care Teams Manager Demand Relationship Specialty Start Date End Date Melonie Ochoa MD PCP - General Family Medicine 11/12/18 02/16/23 Lucero Hood MD Obstetrics & Gynecology 03/20/16 documented as of this encounter
--- OUTSIDE RECORDS SUMMARY | 2024-04-11 00:50 | XMS_ITS | Encounter Summary ---
Author Organization [facility] Care Team Providers Care Assistant Clinical Nurse Manager Name Role Phone Lucero Hood MD Unavailable Unavail able Melonie Ochoa MD Primary Care Provider Encounter Details Date Type Department Care Team (Latest Contact Info) Description 11/30/2019 Travel Social History Tobacco Use Types Packs/Day [...] st Contact Info) Description 04/14/2024 7:00 AM NYLON OPERATOR [facility]ment [facility] M[facility] 1 [place] [id number] Ravi Krishna MD [address] [facility] [address] [place] [address] 07/08/2024 9:30 AM CDT [facility] - [place] [address] [place] [address] Abby Dinh APRN, LABORATORY SAMPLER #2 [facility] [address] [place] [address] documented as of this encounter Visit Diagnoses Not on filedocumented in this encounter Additional Health Concerns Assessment Noted Time PHQ-9 Depression Total Score: 7 11/23/19 20 10:00 AM CDT documented as of this encounter Care Teams Assistant Clinical Nurse Manager Relationship Specialty Start Date End Date Melonie Ochoa MD PCP - General Family Medicine 11/12/18 02/16/23 Lucero Hood MD Obstetrics & Gynecology 03/20/16 documented as of this encounter
--- OUTSIDE RECORDS SUMMARY | 2024-04-11 00:50 | XMS_ITS | Encounter Summary ---
Author Organization [facility] Address [address] [place] [address] Phone Care Team Providers Care Residential Worker Name Role Phone Lucero Hood MD Unavailable Unavail able Melonie Ochoa MD Primary Care Provider [phone] Reason for Visit * Reason Onset Date Comments Tingling 05/17/2020 Encounter Details Date Type Department Care Team (Late st Contact Info) Description 05/17/2020 Nurse Triage [facility] [address] [place] [address] Melonie Ochoa MD [address] [place] [address] Tingling Social History Tobacco Use Types Packs/Day Years [...] Master's degree (e.g., MA, MS, Marcellus, MEd, ACCOUNT SERVICES REPRESENTATIVE, OJEY) 05/07/2020 Sexually Active Control Partners Comments Yes [...] Coronavirus / COVID-19? Yes 05/17/2020 1:17 PM ENROLLMENT MANAGER documented as of this encounter Miscellaneous Notes * Telephone Encounter - Anjelica Dickson RN - 05/17/2020 9:55 AM ENROLLMENT MANAGER Images from the original note were not included. SITUATION: Patient calling regarding upset stomach/nausea, Headache, tingling. Concerned she is having reaction to med change BACKGROUND: paxil increased from 10mg to 20mg on 05/07/20 and started propranolol 10mg TID PRN anxiety 05/11/20 started to notice symptoms Stopped propranolol 05/14/20 to see if symptoms would improve and no improvement. ASSESSMENT: Symptom Description / Location: upset stomach, headaches, loss of appetite, and tingling sensation.Symptoms occur every day. Takes medication at night. Last dose was last night. Says 1st day just tingling in arms. Has been noticing symptoms more. Says woke up and ate breakfast today. Now has nausea and feels tingling sensation in arms and legs. Tingling is on both sides. Denies any weakness or numbness.. Has noticed intermittent dizziness as well. Able to walk without difficulty. Denies any confusion. Denies any problems with speech. Denies any cough or cold like symptoms. Only symptoms currently are tingling and nausea. Pain (0-10): 0 Temp: 97.0 F this am Treatment / Response: tums for stomach upset-did not help RECOMMENDATION: See care advice and disposition for Guideline First positive answer recorded, all responses to prior questions were negative. If symptoms increase, change or if new symptoms develop, call your HCP or call back. Recommendations were based on caller information and is not a diagnosis. Verified and reviewed all triage information with caller. Reason for Disposition ??? Patient wants to be seen Protocols used: NEUROLOGIC [id number]-NE Appt scheduled: 05/17/20 @ 1:30 pm w/ pcp Travel Screening Question Response In the last month, have you been in contact with someone who was confirmed or suspected to have Coronavirus / COVID-19? Yes Have you had a COVID-19 viral test in the last 14 days? Yes - Negative result Do you have any of the following new or worsening symptoms? None of these Have you traveled internationally in the last month? No Travel History Travel since 04/16/20 No documented travel since 04/16/20 COVID-19 Testing Priority for Airam Munoz: 4 LLMENT MANAGER documented in this encounter Plan of Treatment Upcoming Encounters Date Type Department Care Team (Late st Contact Info) Description 04/14/2024 7:00 AM ENROLLMENT MANAGER Appointment [facility] Mammography 1 [place] [address] Ravi Krishna MD [address] [facility] [address] [facility] [address] [place] [address] 07/08/2024 9:30 AM CDT [facility] [address] [place] [address] Abby Dinh APRN, APPLICATION SOFTWARE ENGINEER #[address] [facility] [address] [place] [address] documented as of this encounter Visit Diagnoses Not on filedocumented in this encounter Additional Health Concerns Assessment Noted Time PHQ-9 Depression Total Score: 7 11/23/19 20 10:00 AM CDT documented as of this encounter Care Teams Residential Worker Relationship Specialty Start Date End Date Melonie Ochoa MD PCP - General Family Medicine 11/12/18 02/16/23 Lucero Hood MD Obstetrics & Gynecology 03/20/16 documented as of this encounter
--- OUTSIDE RECORDS SUMMARY | 2024-04-11 00:50 | XMS_ITS | Encounter Summary ---
Author Organization [facility] Care Team Providers Care Primary Health Organisation Manager Name Role Phone Lucero Hood MD Unavailable Unavail able Melonie Ochoa MD Primary Care Provider [phone] Encounter Details Date Type Department Care Team (Latest Contact Info) Description 06/18/2020 Travel Social History Tobacco Use Types Packs/Day [...] Master's degree (e.g., MA, MS, Marcellus, MEd, SENIOR NETWORK ARCHITECT, JOEY) 05/07/2020 Sexually Active Control Partners [...] have Coronavirus / COVID-19? No / Unsure 06/18/2020 2:51 PM STONEMASON SUPERVISOR documented as of this encounter Plan of Treatment Upcoming Encounters Date Type Department Care Team (Late st Contact Info) Description 04/14/2024 7:00 AM STONEMASON SUPERVISOR Appointment [facility] Mammography [address] [place] [id number] Ravi Krishna MD [address] [facility] [address] [facility] [address] [place] [address] 07/08/2024 9:30 AM CDT Office Visit [facility] - Pulmonology & Sleep Medicine - [place] [address] [place] [address] Abby Dinh APRN, INJECTION MOLDING MACHINE OPERATOR #2 [facility] [address] [place] [address] documented as of this encounter Visit Diagnoses Not on filedocumented in this encounter Additional Health Concerns Assessment Noted Time PHQ-9 Depression Total Score: 9 06/04/19 21 9:00 AM STONEMASON SUPERVISOR documented as of this encounter Care Teams Primary Health Organisation Manager Relationship Specialty Start Date End Date Melonie Ochoa MD PCP - General Family Medicine 11/12/18 02/16/23 Lucero Hood MD Obstetrics & Gynecology 03/20/16 documented as of this encounter
--- OUTSIDE RECORDS SUMMARY | 2024-04-11 00:52 | XMS_ITS | Encounter Summary ---
Author Organization [facility] Address [address] [place] [address] Phone Care Team Providers Care Chief Scientist Name Role Phone Melonie Ochoa MD Primary Care Provider [phone] Encounter Details Date Type Department Care Team (Late st Contact Info) Description 02/11/2023 8:30 AM CDT Office Visit [facility] Gastroenterology [address] [facility] 12th [place] [address] [place] [address] Waqar Santiago MD [address] [place] [address] Research study patient (Primary Dx) Social History Tobacco Use Types Packs/Day Years Used Date Smoking Tobacco: Never Smokeless Tobacco: Never AUDIT-C Answer Date Recorded Q1: How often do you have a drink containing alc ohol? Monthly or less 05/06/2022 Q2: How many drinks containi ng alcohol do you have on a typical day when you are drinking? 1 or 2 05/06/2022 Frequency of Binge Drinking Not on file 04/14 Personal Safety Answer Date Recorded Have you ever been in or are you currently in a harmful physical or emotional relationship or is someone making you feel afraid or unsafe? Denies 10/20/2022 Comments No Sex and Gender Information Value Date Recorded Sex Assigned at Not on file Legal Sex Female 12:45 AM RIG WELDER Gender Identity Female 03/17/2022 5:30 PM RIG WELDER Sexual Orientation Not on file documented as of this encounter Last Filed Vital Signs Vital Sign Reading Time Taken Comments Blood Pressure - - Pulse - - Temperature - - Respiratory Rate - - Oxygen Saturation - - Inhaled Oxygen Concentration - - Weight 99.9 kg (220 lb 3.2 oz) 02/11/2023 12:19 PM CDT Height - - Body Mass Index 35.54 06/04/2022 8:30 AM RIG WELDER documented in this encounter Progress Notes * Crispin Pinto RN - 02/11/2023 8:30 AM CDT Audacity week 40 visit Patient is doing well. Next visit scheduled Vitals Wt 99.9 kg (220 lb 3.2 oz) BMI 35.54 kg/m?? documented in this encounter Plan of Treatment Not on file documented as of this encounter Visit Diagnoses Diagnosis Research study patient- Primary documented in this encounter Care Teams Chief Scientist Relationship Specialty Start Date End Date Melonie Ochoa MD PCP - General 01/30/18 04/07/23 documented as of this encounter
--- OUTSIDE RECORDS SUMMARY | 2024-04-11 00:52 | XMS_ITS | Encounter Summary ---
Author Organization [facility] Address [address] [place] [address] Phone Care Team Providers Care Checker Bakery Products Name Role Phone Melonie Ochoa MD Primary Care Provider Encounter Details Date Type Department Care Team (Late st Contact Info) Description 02/25/2023 8:00 AM IN HOME BABY SITTER Office Visit [facility] Gastroenterology [address] [facility] 12th [place] [address] [place] [address] Waqar Santiago MD [address] [place] [address] Research study patient (Primary Dx) [...] on file Legal Sex Female 12:45 AM IN HOME BABY SITTER Gender Identity Female 03/17/2022 5:30 PM IN HOME BABY SITTER Sexual Orientation Not on file documented as of this encounter Last Filed Vital Signs Vital Sign Reading Time Taken Comments Blood Pressure - - Pulse - - Temperature - - Respiratory Rate - - Oxygen Saturation - - Inhaled Oxygen Concentration - - Weight 101.2 kg (223 lb 3.2 oz) 023 11:14 AM IN HOME BABY SITTER Height - - Body Mass Index 36.03 06/04/2022 8:30 AM IN HOME BABY SITTER documented in this encounter Progress Notes * Crispin Pinto RN - 02/25/2023 8:00 AM CST Audacity week 42 visit Patient is doing well. Next visit scheduled Vitals Wt 101.2 kg (223 lb 3.2 oz) BMI 36.03 kg/m?? HOME BABY SITTER documented in this encounter Plan of Treatment Not on file documented as of this encounter Visit Diagnoses Diagnosis Research study patient- Primary documented in this encounter Care Teams Checker Bakery Products Relationship Specialty Start Date End Date Melonie Ochoa MD PCP - General 01/30/18 04/07/23 documented as of this encounter
--- OUTSIDE RECORDS SUMMARY | 2024-04-11 00:52 | XMS_ITS | Referral Summary ---
Author Organization [facility] Address [address] [place] [address] Care Team Providers Care Juvenile Corrections Officer Name Role Phone Edna Yoder MD Primary Care Provider [phone] Allergies No known active allergies Medications calcium carbonate-vitamin D3 500mg (1,250mg) -600 unit tablet Take by mouth. Act tiffanie cetirizine (ZyrTEC) 10 mg tablet Take 1 tablet (10 mg total) by mouth daily 2 Active propranoloL (INDERAL) 10 mg tablet TAKE 1 TABLET BY MOUTH THREE TIMES A DAY NEEDED FOR ANXIETY 1 Active estrogens-methylT ESTOSTERone (EEMT,COVARYX) 1.25-2.5 mg per tablet 2 Active fluticasone propionate (FLONASE) 50 mcg/actuation nasal spray Administer 1 spray into affected nostril(s) daily 6 Active hyoscyamine (LEVSIN) 0.125 mg tabletIndications :Urinary Incontinence Take 1 tablet (0.125 mg total) by mouth every 4 (four) hours as needed for cramping for up to 14 days Take for 3-7 days following balloon swallow. 42 tablet 1 3 Active omeprazole (PriLOSEC) 40 mg capsuleIndication s:Treatment of Non-Bleeding Gastric Disorder Take 1 capsule (40 mg total) by mouth daily before breakfast 90 capsule 3 3 Active famotidine (PEPCID) 40 mg tabletIndications :Research study patient Take 1 tablet (40 mg total) by mouth daily 30 tablet 2 Active Active Problems Problem Noted Date Diagnosed Date Research study patient 04/25/2022 Overview (04/25/2022): Added automatically from request for surgery [id number] Sleep apnea 07/25/2021 Depression 05/17/2020 Hyperlipidemia 05/17/2020 ARTHUR (generalized anxiety disorder) 11/23/2019 Obesity (BMI 35.0-39.9 without comorbidity) 10/13 Seasonal and perennial allergic rhinitis 019 Social History Tobacco Use Types Packs/Day Years Used Date Smoking Tobacco: Never Smokeless Tobacco: Never Tobacco Cessation:Counseling Given: Not Answered AUDIT-C Answer Date Recorded Q1: How often do you have a drink containing alc ohol? Monthly or less 05/06/2022 Q2: How many drinks containi ng alcohol do you have on a typical day when you are drinking? 1 or 2 05/06/2022 Frequency of Binge Drinking Not on file 04/14 Personal Safety Answer Date Recorded Getting School Help Needed Not on file 10/25 Comments No Sex and Gender Information Value Date Recorded Sex Assigned at Not on file Legal Sex Female 12:45 AM LADLE LINER Gender Identity Female 03/17/2022 5:30 PM LADLE LINER Sexual Orientation Not on file Last Filed Vital Signs Vital Sign Reading Time Taken Comments Blood Pressure 108/73 04/08/2023 9:57 AM LADLE LINER Pulse 65 04/08/2023 9:57 AM LADLE LINER Temperature 36.4 ??C (97.6 ??F) 04/08/2023 9:57 AM CS T Respiratory Rate 16 04/08/2023 9:57 AM LADLE LINER Oxygen Saturation 100% 05/06/2022 8:59 AM LADLE LINER Inhaled Oxygen Concentration - - Weight 102.5 kg (226 lb) 04/08/2023 9:57 AM LADLE LINER Height 167.6 cm (5' 6 ) 06/04/2022 8:30 AM LADLE LINER Body Mass Index 36.48 06/04/2022 8:30 AM LADLE LINER Plan of Treatment Not on file Procedures Procedure Name Priority Date/Time Associated Diagnosis Comments SCREENING MAMMOGRAM BILATERAL W JADON Schedule Routine, Read Routine (OP Routine) 10/12/2020 8:47 AM CDT Encounter for screening mammogram for malignant neoplasm of breast from Last 3 Months or Most Recently Relevant to Health Maintenance Results * Screening Mammogram Bilateral W Jadon (10/12/2020 8:47 AM CDT) Anatomical Region Laterality Modality Breast Bilateral Mammography 10/12/2020 12:0 5 PM CDT Impressions 10/12/2020 12:05 PM CDT There is no mammographic evidence of malignancy. Routine screening mammography is recommended in 1 year. BI-RADS: 1 - Negative. The patient will be entered into a reminder system with a target due date of 1 year for her next mammogram. Electronically signed by: Jama Vergara M.D. Narrative 10/12/2020 12:05 PM CDT EXAMINATION: SCREENING MAMMOGRAM BILATERAL W JADON ORDERING HEALTHCARE PROVIDER: SELF SCREENING MAMMOGRAM HISTORY: Routine screening mammography. COMPARISON: ??10/07/2019, 11/12/2018. TECHNIQUE: CC and MLO views of the bilateral breasts were obtained with digital technique using breast tomosynthesis with C view. Computer aided detection was utilized. FINDINGS: DENSITY: There are scattered fibroglandular elements in the bilateral breasts. BREASTS: There are no suspicious masses, suspicious calcifications, or other suspicious findings in either breast. There has been no suspicious interval change. us Self Screening Mammogram IMG MAMMO PROCEDURES Fi nal Result from Last 3 Months or Most Recently Relevant to Health Maintenance Insurance [facility] CHOICE PLUS [facility] HMO/PPO Address: [address] [address] [place] [address] [facility] CHOICE PLUS [facility] H[facility]/PPO Address: [address] [address] [place] [address] [facility] CHOICE PLUS [facility] HMO/PPO Address: [address] [address] [place] [address] Care Teams Juvenile Corrections Officer Relationship Specialty Start Date End Date Edna Yoder MD [address] [place] [address] PCP - General Internal Medicine 04/08/23
--- OUTSIDE RECORDS SUMMARY | 2024-04-11 00:52 | XMS_ITS | Clinical Summary ---
Author Organization [facility] Address [address] [place] [address] Care Team Providers Care Web Application Developer Name Role Phone Edna Yoder MD Primary Care Provider [phone] Allergies No known active allergies Medications calcium [...] total) by mouth daily 30 tablet 2 3 Active Active Problems Problem Noted Date Diagnosed Date Research study patient 04/25/2022 Overview (04/25/2022): Added automatically from request for surgery [id number] Sleep apnea 07/25/2021 Depression 05/17/2020 Hyperlipidemia 05/17/2020 ARTHUR (generalized anxiety disorder) 11/23/2019 Obesity (BMI 35.0-39.9 without comorbidity) 10/13 Seasonal and perennial allergic rhinitis 019 Surgical History Surgery Date Site/Laterality Comments HYSTERECTOMY APPENDECTOMY OOPHERECTOMY OOPHORECTOMY Medical History Medical History Date Comments Endometriosis H/O dilation and curettage Hyperlipidemia Family History * Patient is adopted Medical History Relation Name Comments Breast cancer Paternal Grandmother Relation Name Status Comments Paternal Grandmother Social History Tobacco Use Types Packs/Day Years [...] on file Legal Sex Female 12:45 AM CART DRIVER Gender Identity Female 03/17/2022 5:30 PM CART DRIVER Sexual Orientation Not on file Obstetrics History Para Term AB IAB SAB Ectopic Multiple Livin g Live Births 3 3 3 Date Outcome GA Total Labor Labor/2nd/3rd Weight Sex Type Anes PTL Sarah A1 A5 Name Clin Term Term Term Last Filed Vital Signs Vital Sign Reading Time Taken Comments Blood Pressure 108/73 04/08/2023 9:57 AM CART DRIVER Pulse 65 04/08/2023 9:57 AM CART DRIVER Temperature 36.4 ??C (97.6 ??F) 04/08/2023 9:57 AM CS T Respiratory Rate 16 04/08/2023 9:57 AM CART DRIVER Oxygen Saturation 100% 05/06/2022 8:59 AM CART DRIVER Inhaled Oxygen Concentration - - Weight 102.5 kg (226 lb) 04/08/2023 9:57 AM CART DRIVER Height 167.6 cm (5' 6 ) 06/04/2022 8:30 AM CART DRIVER Body Mass Index 36.48 06/04/2022 8:30 AM CART DRIVER Plan of Treatment Health Maintenance Due Date Last Done Comments Colon Cancer Screening-Colonoscopy 1978 Depression Screening 1978 Hepatitis C Screening 1978 Hepatitis B Screening 1996 Regular Well Visit/Exam 18-64 1996 Covid-19 Vaccine ( - season) 2023 06/23/2020, 05/26/2020 Influenza Vaccine (#1) 2023 01/18/2021, 2019 Breast Cancer Screening-Mammogram 02/27/2024 02/26/2023, 02/26/2023, 12/19/2021, Additional history exists DTaP/Tdap/Td Vaccine (2 - Td or Tdap) 11/23/2030 11/23/2020 HPV Vaccines Aged Out No longer eligi ble based on patient's age to complete this topic Pneumococcal vaccine <65 Aged Out No longer eligible based on patient's age to complete this topic Procedures Procedure Name Priority Date/Time Associated Diagnosis [...] Most Recently Relevant to Health Maintenance Insurance [facility] [employer] [employer] PL[employer] Care Teams Web Application Developer Relationship Specialty Start Date End Date Edna Yoder MD [address] [employer] [place] [address] PCP - General Internal Medicine 04/08/23
--- OUTSIDE RECORDS SUMMARY | 2024-04-11 00:52 | XMS_ITS | Encounter Summary ---
Author Organization [facility] Address [address] [place] [address] Phone Care Team Providers Care Women Designer Name Role Phone Melonie Ochoa MD Primary Care Provider Encounter Details Date Type Department Care Team (Late st Contact Info) Description 03/11/2023 8:00 AM HANDICAPPED TEACHER Office Visit [facility] Gastroenterology [address] [facility] 12th [place] [address] [place] [address] Waqar Santiago MD [address] [place] [address] Research study patient (Primary Dx) [...] on file Legal Sex Female 12:45 AM HANDICAPPED TEACHER Gender Identity Female 03/17/2022 5:30 PM HANDICAPPED TEACHER Sexual Orientation Not on file documented as of this encounter Last Filed Vital Signs Vital Sign Reading Time Taken Comments Blood Pressure - - Pulse - - Temperature - - Respiratory Rate - - Oxygen Saturation - - Inhaled Oxygen Concentration - - Weight 102.3 kg (225 lb 9.6 oz) 023 10:22 AM HANDICAPPED TEACHER Height - - Body Mass Index 36.41 06/04/2022 8:30 AM HANDICAPPED TEACHER documented in this encounter Progress Notes * Jenny Schreiber NP - 03/11/2023 8:00 AM CST Wt Readings from Last 40 Encounters: 03/11/23 102.3 kg (225 lb 9.6 oz) 02/25/23 101.2 kg (223 lb 3.2 oz) 02/11/23 99.9 kg (220 lb 3.2 oz) 01/28/23 101 kg (222 lb 9.6 oz) 01/08/23 100.2 kg (221 lb) 12/23/22 100.3 kg (221 lb 3.2 oz) 11/18/22 97.4 kg (214 lb 12.8 oz) 10/27/22 97.2 kg (214 lb 3.2 oz) 10/20/22 100.4 kg (221 lb 6.4 oz) 10/08/22 101.4 kg (223 lb 9.6 oz) 09/22/22 99.9 kg (220 lb 3.2 oz) 09/03/22 100.9 kg (222 lb 6.4 oz) 08/20/22 99.8 kg (220 lb) 08/06/22 99.2 kg (218 lb 12.8 oz) 07/23/22 100.3 kg (221 lb 3.2 oz) 06/25/22 100.7 kg (222 lb) 06/04/22 102.2 kg (225 lb 3.2 oz) 05/12/22 103.9 kg (229 lb) 05/06/22 106.1 kg (234 lb) 05/06/22 106.4 kg (234 lb 9.6 oz) 03/24/22 106.7 kg (235 lb 3.2 oz) 10/07/19 102.5 kg (226 lb) 01/30/18 95.3 kg (210 lb) ICAPPED TEACHER documented in this encounter Plan of Treatment Not on file documented as of this encounter Visit Diagnoses Diagnosis Research study patient- Primary documented in this encounter Care Teams Women Designer Relationship Specialty Start Date End Date Melonie Ochoa MD PCP - General 01/30/18 04/07/23 documented as of this encounter
--- OUTSIDE RECORDS SUMMARY | 2024-04-11 00:52 | XMS_ITS | Encounter Summary ---
Author Organization [facility] Address [address] [place] [address] Phone Care Team Providers Care Spiral Spring Winder Name Role Phone Edna Yoder MD Primary Care Provider [phone]- [phone] Encounter Details Date Type Department Care Team (Late st Contact Info) Description 04/08/2023 8:00 AM PAYROLL AND BENEFITS MANAGER Office Visit [facility] Gastroenterology [address] [facility] 12th [place] [address] [place] [address] Waqar Santiago MD [address] [place] [address] Research study patient (Primary Dx) [...] on file Legal Sex Female 12:45 AM PAYROLL AND BENEFITS MANAGER Gender Identity Female 03/17/2022 5:30 PM PAYROLL AND BENEFITS MANAGER Sexual Orientation Not on file documented as of this encounter Last Filed Vital Signs Vital Sign Reading Time Taken Comments Blood Pressure 108/73 04/08/2023 9:57 AM PAYROLL AND BENEFITS MANAGER Pulse 65 04/08/2023 9:57 AM PAYROLL AND BENEFITS MANAGER Temperature 36.4 ??C (97.6 ??F) 04/08/2023 9:57 AM CS T Respiratory Rate 16 04/08/2023 9:57 AM PAYROLL AND BENEFITS MANAGER Oxygen Saturation - - Inhaled Oxygen Concentration - - Weight 102.5 kg (226 lb) 04/08/2023 9:57 AM PAYROLL AND BENEFITS MANAGER Height - - Body Mass Index 36.48 06/04/2022 8:30 AM PAYROLL AND BENEFITS MANAGER documented in this encounter Progress Notes * Crispin Pinto RN - 04/08/2023 8:00 AM CST Audacity week 48 visit Patient is doing well. Completed study. Vitals BP 108/73 Pulse 65 Temp 36.4 ??C (97.6 ??F) Resp 16 Wt 102.5 kg (226 lb) BMI 36.48 kg/m?? OLL AND BENEFITS MANAGER documented in this encounter Plan of Treatment Not on file documented as of this encounter Results * Hemoglobin A1c (04/08/2023 7:16 AM PAYROLL AND BENEFITS MANAGER) Hgb A1C 5.1 4.0 - 5.6 % [facility] Estimated Average Glucose 100 mg/dL [facility] Comment: The ADA recommends reporting an estimated Average Glucose (eAG) with all Hemoglobin A1c results using the equation derived from a study of 507 normal and diabetic adults. ??Minority populations were underrepresented and children were not included. ?? (Diabetes Care 2020; 43(S1): S66-S76). ??The eAG is not equivalent to a fasting glucose. Blood 04/08/2023 7:16 AM PAYROLL AND BENEFITS MANAGER 04/08/2023 7:36 AM PAYROLL AND BENEFITS MANAGER Narrative [facility] - 04/08/2023 8:55 AM PAYROLL AND BENEFITS MANAGER BILL TO IRB study# [id number]. BILL TO IRB study# [id number]. us Jenny Latesha Candie LOCKS INSPECTOR LAB BLOOD ORDERABLES Final Result [facility] Department [place] [address] * (ABNORMAL) Lipid panel (04/08/2023 6:57 AM PAYROLL AND BENEFITS MANAGER) [facility] Signature Cholesterol 203(H) 30 - 199 mg/dL [facility] Comment: Interpretive Data Ages < or = 19 years ??Acceptable: ? <170 mg/dL ??Borderline high: ??170-199 mg/dL ??High: ? >or= 200 mg/dL Ages > or = 20 years ??Desirable: ?<200 mg/dL ??Borderline high: ??200-239 mg/dL ??High: ? >or= 240 mg/dL Literature References: 1. Expert Panel on Integrated Guidelines for Cardiovascular Health and Risk Reduction in Children and Adolescents. Pediatrics 2011;128:S213 2. NCEP Expert Panel. Circulation 2004;110:227 Current Interpretive Data was last revised on 2017. Triglycerides 88 <=149 mg/dL [facility] Comment: Interpretive Data Ages < or = 9 years ??Acceptable: ? <75 mg/dL ??Borderline high: ??75-99 mg/dL ??High: ? >or= 100 mg/dL Ages 10 to 20 years ??Acceptable: ? <90 mg/dL ??Borderline high: ??90-129 mg/dL ??High: ? >or= 130 mg/dL Ages > or = 20 years ??Desirable: ?<150 mg/dL ??Borderline high: ??150-199 mg/dL ??High: ? 200-499 mg/dL ?Very high: ?? >or= 499 mg/dL Literature References: 1. Expert Panel on Integrated Guidelines for Cardiovascular Health and Risk Reduction in Children and Adolescents. Pediatrics 2011;128:S213 2. NCEP Expert Panel. Circulation 2004;110:227 Current Interpretive Data was last revised on 2017. HDL 67 >=40 mg/dL [facility] Comment: Interpretive Data Ages < or = 19 years ??Acceptable: ? >45 mg/dL ??Borderline low: ?? 40-45 mg/dL ??Low: ? <40 mg/dL Ages > or = 20 years ??Desirable: ?>or= 60 mg/dL ??Low: ? <40 mg/dL Literature References: 1. Expert Panel on Integrated Guidelines for Cardiovascular Health and Risk Reduction in Children and Adolescents. Pediatrics 2011;128:S213 2. NCEP Expert Panel. Circulation 2004;110:227 Current Interpretive Data was last revised on 2017. LDL, calculated 118 <=129 mg/dL [facility] Comment: Interpretive Data Ages < or = 19 years ??Acceptable: ? <110 mg/dL ??Borderline high: ??110-129 mg/dL ??High: ?>or= 130 mg/dL Ages > or = 20 years ??Optimal: ? <100 mg/dL ??Near optimal: ?100-129 mg/dL ??Borderline high: ?? 130-159 mg/dL ??High: ?>160 mg/dL Literature References: 1. Expert Panel on Integrated Guidelines for Cardiovascular Health and Risk Reduction in Children and Adolescents. Pediatrics 2011;128:S213 2. NCEP Expert Panel. Circulation 2004;110:227 Current Interpretive Data was last revised on 2017. Non-HDL Cholesterol 136 mg/dL [facility] Comment: Interpretive Data Ages < or = 19 years ??Acceptable: ?<120 mg/dL ??Borderline high: ??120-144 mg/dL ??High: ?>145 mg/dL Ages > or = 20 years ??When triglycerides are >200 mg/dL, Non-HDL cholesterol is a secondary target of ? therapy with treatment goals that are 30 mg/dL greater than the LDL cholesterol target. ? Literature References: 1. Expert Panel on Integrated Guidelines for Cardiovascular Health and Risk Reduction in Children and Adolescents. Pediatrics 2011;128:S213 2. NCEP Expert Panel. Circulation 2004;110:227 Current Interpretive Data was last revised on 2017. Chol/HDL ratio 3 [facility] Blood 04/08/2023 6:57 AM PAYROLL AND BENEFITS MANAGER 04/08/2023 7:35 AM PAYROLL AND BENEFITS MANAGER Narrative [facility] - 04/08/2023 7:57 AM PAYROLL AND BENEFITS MANAGER BILL TO IRB study# [id number]. BILL TO IRB study# [id number]. Jenny Schreiber NP LAB BLOOD ORDERABLES Final Result Performing Organization Address [facility]/ZIP Co de Phone Number [facility] Department [place] [address] * (ABNORMAL) Hepatic function panel (04/08/2023 6:57 AM PAYROLL AND BENEFITS MANAGER) Pathologist [facility] Bilirubin, total 0.3 0.1 - 1.2 mg/dL [facility] Bilirubin, direct <0.2 0.1 - 0.3 mg/dL [facility] Protein, pl 7.2 6.5 - 8.5 g/dL [facility] Albumin 4.2 3.5 - 5.0 g/dL [facility] Alk phos <20(L) 40 - 130 Units/L [facility] Comment:Repeated and Verifie d ALT 33 7 - 45 Units/L [facility] AST 26 10 - 45 Units/L [facility] Blood 04/08/2023 6:57 AM PAYROLL AND BENEFITS MANAGER 04/08/2023 7:35 AM PAYROLL AND BENEFITS MANAGER Narrative [facility] - 04/08/2023 8:09 AM PAYROLL AND BENEFITS MANAGER BILL TO IRB study# [id number]. BILL TO IRB study# [id number]. Jenny Schreiber NP LAB BLOOD ORDERABLES Final Result Performing Organization Address [facility]/ZIP Co de Phone Number [facility] Department [place] [address] documented in this encounter Visit Diagnoses Diagnosis Research study patient- Primary Research study patient documented in this encounter Care Teams Spiral Spring Winder Relationship Specialty Start Date End Date Edna Yoder MD [address] [facility] [place] [address] PCP - General Internal Medicine 04/08/23 documented as of this encounter
--- OUTSIDE RECORDS SUMMARY | 2024-04-11 00:52 | XMS_ITS | Encounter Summary ---
Author Organization [facility] Address [address] [place] [address] Phone Care Team Providers Care Mission Manager Name Role Phone Melonie Ochoa MD Primary Care Provider Encounter Details Date Type Department Care Team (Late st Contact Info) Description 03/25/2023 8:00 AM YARN SALVAGER Office Visit [facility] Gastroenterology [address] [facility] [address] [place] [address] [place] [address] Waqar Santiago MD [address] [place] [address] Research study patient (Primary Dx) [...] on file Legal Sex Female 12:45 AM YARN SALVAGER Gender Identity Female 03/17/2022 5:30 PM YARN SALVAGER Sexual Orientation Not on file documented as of this encounter Last Filed Vital Signs Vital Sign Reading Time Taken Comments Blood Pressure - - Pulse - - Temperature - - Respiratory Rate - - Oxygen Saturation - - Inhaled Oxygen Concentration - - Weight 102.1 kg (225 lb) 03/25/2023 10:27 AM YARN SALVAGER Height - - Body Mass Index 36.32 06/04/2022 8:30 AM YARN SALVAGER documented in this encounter Progress Notes * Jenny Schreiber, KENNEL WORKER - 03/25/2023 8:00 AM CST Wt Readings from Last 40 Encounters: 03/25/23 102.1 kg (225 lb) 03/11/23 102.3 kg (225 lb 9.6 oz) [...] (226 lb) 01/30/18 95.3 kg (210 lb) SALVAGER documented in this encounter Plan of Treatment Not on file documented as of this encounter Visit Diagnoses Diagnosis Research study patient- Primary documented in this encounter Care Teams Mission Manager Relationship Specialty Start Date End Date Melonie Ochoa MD PCP - General 01/30/18 04/07/23 documented as of this encounter
--- OUTSIDE RECORDS SUMMARY | 2024-04-11 00:52 | XMS_ITS | Encounter Summary ---
Author Organization [facility] Healthcare Address [address] [place] [address] Care Team Providers Care Neonatal Specialist Name Role Phone Edna Yoder MD Primary Care Provider +1- [phone] Encounter Details Date Type Department Care Team (Late st Contact Info) Description 04/08/2023 6:45 AM COAL SHOVELER Lab [facility] Advanced Medicine [facility] Advanced Medicine ([facility]) [address] [place] [phone] Research study patient Social History Tobacco Use Types Packs/Day Years [...] on file Legal Sex Female 12:45 AM COAL SHOVELER Gender Identity Female 03/17/2022 5:30 PM COAL SHOVELER Sexual Orientation Not on file documented as of this encounter Plan of Treatment Not on file documented as of this encounter Procedures Procedure Name Priority Date/Time Associated Diagnosis Comments HEMOGLOBIN A1C Routine 04/08/2023 7:16 AM COAL SHOVELER Research study patient HEPATIC FUNCTION PANEL Routine 04/08/2023 6:57 AM COAL SHOVELER Research study patient LIPID PANEL Routine 04/08/2023 6:57 AM COAL SHOVELER Research study patient documented in this encounter Results * Hemoglobin A1c (04/08/2023 7:16 AM COAL SHOVELER) Pathologist [facility] Hgb A1C 5.1 4.0 - 5.6 % [facility] Estimated Average Glucose 100 mg/dL [facility] Comment: The ADA recommends reporting an estimated Average Glucose (eAG) with all Hemoglobin A1c results using the equation derived from a study of 507 normal and diabetic adults. ??Minority populations were underrepresented and children were not included. ?? (Diabetes Care 2020; 43(S1): S66-S76). ??The eAG is not equivalent to a fasting glucose. Blood 04/08/2023 7:16 AM COAL SHOVELER 04/08/2023 7:36 AM COAL SHOVELER Narrative [facility] - 04/08/2023 8:55 AM COAL SHOVELER BILL TO IRB study# [id number]. BILL TO IRB study# [id number]. us Jenny Schreiber NP LAB BLOOD ORDERABLES Final Result [facility] [place] [address] * (ABNORMAL) Hepatic function panel (04/08/2023 6:57 AM COAL SHOVELER) Pathologist [facility] Bilirubin, total 0.3 0.1 - 1.2 mg/dL [facility] Bilirubin, direct <0.2 0.1 - 0.3 mg/dL [facility] Protein, pl 7.2 6.5 - 8.5 g/dL [facility] Albumin 4.2 3.5 - 5.0 g/dL [facility] Alk phos <20(L) 40 - 130 Units/L [facility] Comment:Repeated and Verifie d ALT 33 7 - 45 Units/L [facility] AST 26 10 - 45 Units/L [facility] Blood 04/08/2023 6:57 AM COAL SHOVELER 04/08/2023 7:35 AM COAL SHOVELER Narrative [facility] - 04/08/2023 8:09 AM COAL SHOVELER BILL TO IRB study# [id number]. BILL TO IRB study# [id number]. us Jenny Latesha Schreiber PAINTER TOUCH UP LAB BLOOD ORDERABLES Final Result [facility] [place] [address] * (ABNORMAL) Lipid panel (04/08/2023 6:57 AM COAL SHOVELER) Cholesterol 203(H) 30 - 199 mg/dL [facility] Comment: Interpretive Data Ages < or = [...] revised on 2017. Triglycerides 88 <=149 mg/dL [facility] Comment: Interpretive Data Ages < or = [...] on 2017. HDL 67 >=40 mg/dL [facility] Comment: Interpretive Data Ages < or = [...] 2017. LDL, calculated 118 <=129 mg/dL [facility] Comment: Interpretive Data Ages < or = [...] on 2017. Non-HDL Cholesterol 136 mg/dL [facility] Comment: Interpretive Data Ages < or = [...] last revised on 2017. Chol/HDL ratio [address] [facility] Blood 04/08/2023 6:57 AM COAL SHOVELER 04/08/2023 7:35 AM COAL SHOVELER Narrative [facility] - 04/08/2023 7:57 AM COAL SHOVELER BILL TO IRB study# [id number]. BILL TO IRB study# [id number]. Jenny Schreiber NP LAB BLOOD ORDERABLES Final Result [facility] [place] [address] documented in this encounter Visit Diagnoses Diagnosis Research study patient documented in this encounter Care Teams Neonatal Specialist Relationship Specialty Start Date End Date Edna Yoder MD [address] [place] [address] PCP - General Internal Medicine 04/08/23 documented as of this encounter
--- OUTSIDE RECORDS SUMMARY | 2024-04-11 00:53 | XMS_ITS | Encounter Summary ---
Author Organization [facility] Address [address] [place] [address] Phone Care Team Providers Care Sausage Smoker Name Role Phone Melonie Ochoa MD Primary Care Provider [phone] Reason for Referral * Diagnostic Imaging (Routine) - Closed Specialty Diagnoses / Procedures Referred By Contac t Referred To Contact Diagnoses Research study patient Procedures US Abdomen Limited US Abdomen Complete Jenny Schreiber NP [address] [place] [address] Phone: tel: fax: [address] [phone] Referral ID Status Reason Start Date Expiration Date Visits Re quested Visits Authorized [id number] Closed 05/12/2022 06/11/2023 1 1 UTIVE COMPENSATION ANALYST * Diagnostic Imaging (Routine) - Closed Specialty Diagnoses / Procedures Referred By Contac t Referred To Contact Diagnoses Research study patient Procedures US Abdomen Limited US Abdomen Complete Jenny Schreiber NP [address] [place] [address] Phone: tel: fax: [address] [phone] Referral ID Status Reason Start Date Expiration Date Visits Re quested Visits Authorized [id number] Closed 05/12/2022 06/11/2023 1 1 UTIVE COMPENSATION ANALYST * Diagnostic Imaging (Routine) - Closed Specialty Diagnoses / Procedures Referred By Contac t Referred To Contact Diagnoses Research study patient Procedures US Abdomen Limited US Abdomen Complete Jenny Schreiber NP [address] [place] [address] Phone: tel: fax: [address] [phone] Referral ID Status Reason Start Date Expiration Date Visits Re quested Visits Authorized [id number] Closed 05/12/2022 06/11/2023 1 1 UTIVE COMPENSATION ANALYST * Diagnostic Imaging (Routine) - Closed Specialty Diagnoses / Procedures Referred By Contac t Referred To Contact Diagnoses Research study patient Procedures US Abdomen Limited US Abdomen Complete Jenny Schreiber NP [address] [place] [address] Phone: tel: fax: [address] [phone] Referral ID Status Reason Start Date Expiration Date Visits Re quested Visits Authorized [id number] Closed 05/12/2022 06/11/2023 1 1 UTIVE COMPENSATION ANALYST * Diagnostic Imaging (Routine) - Closed Specialty Diagnoses / Procedures Referred By Contac t Referred To Contact Diagnoses Research study patient Procedures US Abdomen Limited US Abdomen Complete Jenny Schreiber NP [address] [place] [address] Phone: tel: fax: [address] [phone] Referral ID Status Reason Start Date Expiration Date Visits Re quested Visits Authorized [id number] Closed 05/12/2022 06/11/2023 1 1 UTIVE COMPENSATION ANALYST * Diagnostic Imaging (Routine) - Closed Specialty Diagnoses / Procedures Referred By Contac t Referred To Contact Diagnoses Research study patient Procedures US Abdomen Limited US Abdomen Complete Jenny Schreiber NP [address] [place] [address] Phone: tel: fax: [address] [phone] Referral ID Status Reason Start Date Expiration Date Visits Re quested Visits Authorized [id number] Closed 05/12/2022 06/11/2023 1 1 UTIVE COMPENSATION ANALYST * Diagnostic Imaging (Routine) - Closed Specialty Diagnoses / Procedures Referred By Contac t Referred To Contact Diagnoses Research study patient Procedures US Abdomen Limited US Abdomen Complete Jenny Schreiber NP [address] [place] [address] Phone: tel: fax: [address] [phone] Referral ID Status Reason Start Date Expiration Date Visits Re quested Visits Authorized [id number] Closed 05/12/2022 06/11/2023 1 1 UTIVE COMPENSATION ANALYST * Diagnostic Imaging (Routine) - Closed Specialty Diagnoses / Procedures Referred By Contac t Referred To Contact Diagnoses Research study patient Procedures US Abdomen Limited US Abdomen Complete Jenny Schreiber NP [address] [place] [address] Phone: tel: fax: [address] [phone] Referral ID Status Reason Start Date Expiration Date Visits Re quested Visits Authorized [id number] Closed 05/12/2022 06/11/2023 1 1 UTIVE COMPENSATION ANALYST Encounter Details Date Type Department Care Team (Late st Contact Info) Description 05/12/2022 3:45 PM EXECUTIVE COMPENSATION ANALYST Office Visit [facility] [address] [facility] 12[address] [place] [address] [place] [address] Jenny Schreiber NP [address] [place] [address] Research study patient (Primary Dx) Social History [...] of Binge Drinking Not on file 04/14 Comments No Sex and Gender Information Value Date Recorded Sex Assigned at Not on file Legal Sex Female 12:45 AM EXECUTIVE COMPENSATION ANALYST Gender Identity Female 03/17/2022 5:30 PM EXECUTIVE COMPENSATION ANALYST Sexual Orientation Not on file documented as of this encounter Last Filed Vital Signs Vital Sign Reading Time Taken Comments Blood Pressure 100/66 05/12/2022 4:21 PM EXECUTIVE COMPENSATION ANALYST Pulse 73 05/12/2022 4:21 PM EXECUTIVE COMPENSATION ANALYST Temperature 36.7 ??C (98 ??F) 05/12/2022 4:21 PM EXECUTIVE COMPENSATION ANALYST Respiratory Rate - - Oxygen Saturation - - Inhaled Oxygen Concentration - - Weight 103.9 kg (229 lb) 05/12/2022 4:21 PM EXECUTIVE COMPENSATION ANALYST Height 167.6 cm (5' 6 ) 05/12/2022 4:21 PM EXECUTIVE COMPENSATION ANALYST Body Mass Index 36.96 05/12/2022 4:21 PM EXECUTIVE COMPENSATION ANALYST documented in this encounter Progress Notes * Jenny Schreiber NP - 05/12/2022 3:45 PM CST Audacity week 1 visit Patient is doing well. Next visit scheduled Vitals BP 100/66 Pulse 73 Temp 36.7 ??C (98 ??F) Ht 167.6 cm (5' 6 ) Wt 103.9 kg (229 lb) BMI 36.96 kg/m?? Wt Readings from Last 10 Encounters: 05/12/22 103.9 kg (229 lb) 05/06/22 106.1 kg (234 lb) 05/06/22 106.4 kg (234 lb 9.6 oz) 03/24/22 106.7 kg (235 lb 3.2 oz) 10/07/19 102.5 kg (226 lb) 01/30/18 95.3 kg (210 lb) Orders Placed This Encounter Procedures US Abdomen Complete BILL TO IRB study# [id number]. Standing Status: Future Standing Expiration Date: 05/12/2023 Order Specific Question: Clinical question to be answered: Answer: evalute for intragastric balloon(s) Order Specific Question: Where should this order be performed? Answer: [facility] [152] Abdomen Complete BILL TO IRB study# [id number]. Standing Status: Future Standing Expiration Date: 05/12/2023 Order Specific Question: Clinical question to be answered: Answer: evalute for intragastric balloon(s) Order Specific Question: Where should this order be performed? Answer: [facility] [152] Abdomen Complete BILL TO IRB study# [id number]. Standing Status: Future Standing Expiration Date: 05/12/2023 Order Specific Question: Clinical question to be answered: Answer: evalute for intragastric balloon(s) Order Specific Question: Where should this order be performed? Answer: [facility] [152] Abdomen Complete BILL TO IRB study# [id number]. Standing Status: Future Standing Expiration Date: 05/12/2023 Order Specific Question: Clinical question to be answered: Answer: evalute for intragastric balloon(s) Order Specific Question: Where should this order be performed? Answer: [facility] [152] Abdomen Complete BILL TO IRB study# [id number]. Standing Status: Future Standing Expiration Date: 05/12/2023 Order Specific Question: Clinical question to be answered: Answer: evalute for intragastric balloon(s) Order Specific Question: Where should this order be performed? Answer: [facility] [152] Abdomen Complete BILL TO IRB study# [id number]. Standing Status: Future Standing Expiration Date: 05/12/2023 Order Specific Question: Clinical question to be answered: Answer: evalute for intragastric balloon(s) Order Specific Question: Where should this order be performed? Answer: [facility] [152] US Abdomen Complete BILL TO IRB study# [id number]. Standing Status: Future Standing Expiration Date: 05/12/2023 Order Specific Question: Clinical question to be answered: Answer: evalute for intragastric balloon(s) Order Specific Question: Where should this order be performed? Answer: [facility] [152] US Abdomen Complete BILL TO IRB study# [id number]. Standing Status: Future Standing Expiration Date: 05/12/2023 Order Specific Question: Clinical question to be answered: Answer: evalute for intragastric balloon(s) Order Specific Question: Where should this order be performed? Answer: [facility] [152] No orders of the defined types were placed in this encounter. UTIVE COMPENSATION ANALYST documented in this encounter Plan of Treatment Not on file documented as of this encounter Results * US Abdomen Limited (12/17/2022 7:19 AM CDT) Anatomical Region Laterality Modality Abdomen N/A Ultrasound 12/17/2022 8:29 AM CDT Impressions 12/17/2022 9:18 AM CDT Intragastric balloon as described above. Dictated by: Estefany Salcedo PA-C The radiology attending physician has personally reviewed this study, and had reviewed and/or edited this written report and agrees with it. Electronically signed by: Helen Walker M.D. Narrative 12/17/2022 9:18 AM CDT EXAMINATION: LIMITED ABDOMINAL SONOGRAM HISTORY: 42-year-old female with intragastric balloon. ??This is a research study. COMPARISON: Sonogram dated 11/17/2022. FINDINGS: There is a fluid-filled balloon in the left upper quadrant that measures 10.9 x 10.1 x 12.9 cm with an estimated volume of 736 mL (previously 407 mL). Procedure Note Helen Walker MD - 12/17/2022 EXAMINATION: LIMITED ABDOMINAL SONOGRAM HISTORY: 42-year-old female with intragastric balloon. This is a research study. COMPARISON: Sonogram dated 11/17/2022. FINDINGS: There is a fluid-filled balloon in the left upper quadrant that measures 10.9 x 10.1 x 12.9 cm with an estimated volume of 736 mL (previously 407 mL). IMPRESSION: Intragastric balloon as described above. Dictated by: Estefany Salcedo PA-C The radiology attending physician has personally reviewed this study, and had reviewed and/or edited this written report and agrees with it. Electronically signed by: Helen Walker M.D. us Jenny Latesha Candie BELT LOOP MACHINE OPERATOR IMG US PROCEDURES Final Res ult * US Abdomen Limited (11/17/2022 1:14 PM CDT) Anatomical Region Laterality Modality Abdomen N/A Ultrasound 11/17/2022 1:17 PM CDT Impressions 11/17/2022 1:27 PM CDT 1. Intragastric balloon as described above. Dictated by: Estefany Salcedo PA-C The radiology attending physician has personally reviewed this study, and had reviewed and/or edited this written report and agrees with it. Electronically signed by: Bird Easley M.D. Narrative 11/17/2022 1:27 PM CDT EXAMINATION: LIMITED ABDOMINAL SONOGRAM HISTORY: 42-year-old female with intragastric balloon. ??This is a research study. COMPARISON: Sonogram dated 09/03/2022. FINDINGS: There is a fluid-filled balloon in the left upper quadrant that measures 12.0 x 6.8 x 9.6 cm with an estimated volume of 407 mL. Procedure Note Bird Easley MD - 11/17/2022 EXAMINATION: LIMITED ABDOMINAL SONOGRAM HISTORY: 42-year-old female with intragastric balloon. This is a research study. COMPARISON: Sonogram dated 09/03/2022. FINDINGS: There is a fluid-filled balloon in the left upper quadrant that measures 12.0 x 6.8 x 9.6 cm with an estimated volume of 407 mL. IMPRESSION: 1. Intragastric balloon as described above. Dictated by: Estefany Salcedo PA-C The radiology attending physician has personally reviewed this study, and had reviewed and/or edited this written report and agrees with it. Electronically signed by: Bird Easley M.D. us Jenny Schreiber BELT LOOP MACHINE OPERATOR IMG US PROCEDURES Final Res ult * US Abdomen Limited (09/03/2022 7:39 AM CDT) Anatomical Region Laterality Modality Abdomen N/A Ultrasound 09/03/2022 7:43 AM CDT Impressions 09/03/2022 8:13 AM CDT 1. Interval passage of intragastric balloon. Dictated by: Estefany Salcedo PA-C The radiology attending physician has personally reviewed this study, and had reviewed and/or edited this written report and agrees with it. Electronically signed by: Helen Walker M.D. Narrative 09/03/2022 8:13 AM CDT EXAMINATION: LIMITED ABDOMINAL SONOGRAM HISTORY: 42-year-old female with intragastric balloon. ??This is a research study. COMPARISON: Sonogram dated 08/20/2022. FINDINGS: No fluid-filled balloon is visualized in the epigastric or left upper quadrant. Procedure Note Helen Walker MD - 09/03/2022 EXAMINATION: LIMITED ABDOMINAL SONOGRAM HISTORY: 42-year-old female with intragastric balloon. This is a research study. COMPARISON: Sonogram dated 08/20/2022. FINDINGS: No fluid-filled balloon is visualized in the epigastric or left upper quadrant. IMPRESSION: 1. Interval passage of intragastric balloon. Dictated by: Estefany Salcedo PA-C The radiology attending physician has personally reviewed this study, and had reviewed and/or edited this written report and agrees with it. Electronically signed by: Helen Walker M.D. us Jenny Schreiber NP IMG US PROCEDURES Final Res ult * US Abdomen Limited (08/20/2022 7:16 AM CDT) Anatomical Region Laterality Modality Abdomen N/A Ultrasound 08/20/2022 8:33 AM CDT Impressions 08/20/2022 8:33 AM CDT Intragastric balloon with measurements as described above. Electronically signed by: Helen Walker M.D. Narrative 08/20/2022 8:33 AM CDT EXAMINATION: Ultrasound abdomen Limited intragastric balloon HISTORY: 42-year-old female with an intragastric balloon. FINDINGS: The fluid-filled intragastric balloon measures 8.6 x 8.8 x 10.1 cm with an estimated volume of 404.5 mL. Procedure Note Helen Walker MD - 08/20/2022 EXAMINATION: Ultrasound abdomen Limited intragastric balloon HISTORY: 42-year-old female with an intragastric balloon. FINDINGS: The fluid-filled intragastric balloon measures 8.6 x 8.8 x 10.1 cm with an estimated volume of 404.5 mL. IMPRESSION: Intragastric balloon with measurements as described above. Electronically signed by: Helen Walker M.D. us Jenny Schreiber BELT LOOP MACHINE OPERATOR IMG US PROCEDURES Final Res ult * US Abdomen Limited (08/06/2022 7:40 AM CDT) Anatomical Region Laterality Modality Abdomen N/A Ultrasound 08/06/2022 7:46 AM CDT Impressions 08/06/2022 8:12 AM CDT Intragastric balloon as described above. Dictated by: Estefany Salcedo PA-C The radiology attending physician has personally reviewed this study, and had reviewed and/or edited this written report and agrees with it. Electronically signed by: Helen Walker M.D. Narrative 08/06/2022 8:12 AM CDT EXAMINATION: LIMITED ABDOMINAL SONOGRAM HISTORY: 42-year-old female with intragastric balloon. ??This is a research study. COMPARISON: Sonogram dated 07/23/2022. FINDINGS: There is a fluid-filled balloon in the left upper quadrant that measures 10.8 x 10.7 x 7.3 cm with an estimated volume of 300 mL. Procedure Note Helen Walker MD - 08/06/2022 EXAMINATION: LIMITED ABDOMINAL SONOGRAM HISTORY: 42-year-old female with intragastric balloon. This is a research study. COMPARISON: Sonogram dated 07/23/2022. FINDINGS: There is a fluid-filled balloon in the left upper quadrant that measures 10.8 x 10.7 x 7.3 cm with an estimated volume of 300 mL. IMPRESSION: Intragastric balloon as described above. Dictated by: Estefany Salcedo PA-C The radiology attending physician has personally reviewed this study, and had reviewed and/or edited this written report and agrees with it. Electronically signed by: Helen Walker M.D. us Jenny Schreiber NP IMG US PROCEDURES Final Res ult * US Abdomen Limited (07/23/2022 9:28 AM CDT) Anatomical Region Laterality Modality Abdomen N/A Ultrasound 07/23/2022 9:31 AM CDT Impressions 07/23/2022 9:33 AM CDT 1. Intragastric balloon with measurements as above. Dictated by: Tristian Roa MD The radiology attending physician has personally reviewed this study, and had reviewed and/or edited this written report and agrees with it. Electronically signed by: Lillian Bhat M.D. Narrative 07/23/2022 9:33 AM CDT EXAMINATION: ??LIMITED ABDOMINAL SONOGRAM HISTORY: ??42-year-old woman with intragastric balloon. ??This is a research study. COMPARISON: ??06/25/22 FINDINGS: ?? There is a fluid-filled intragastric balloon measuring 12.0 x 10.1 x 8.2 cm with estimated volume of 522.3 mL. Procedure Note Lillian Bhat MD - 07/23/2022 EXAMINATION: LIMITED ABDOMINAL SONOGRAM HISTORY: 42-year-old woman with intragastric balloon. This is a research study. COMPARISON: 06/25/22 FINDINGS: There is a fluid-filled intragastric balloon measuring 12.0 x 10.1 x 8.2 cm with estimated volume of 522.3 mL. IMPRESSION: 1. Intragastric balloon with measurements as above. Dictated by: Tristian Roa MD The radiology attending physician has personally reviewed this study, and had reviewed and/or edited this written report and agrees with it. Electronically signed by: Lillian Bhat M.D. us Jenny Charlton Candie BELT LOOP MACHINE OPERATOR IMG US PROCEDURES Final Res ult * US Abdomen Limited (06/25/2022 8:01 AM CDT) Anatomical Region Laterality Modality Abdomen N/A Ultrasound 06/25/2022 8:11 AM CDT Impressions 06/25/2022 8:43 AM CDT 1. Intragastric balloon with volume of 559 mL. Dictated by: Serenity Giang MD The radiology attending physician has personally reviewed this study, and had reviewed and/or edited this written report and agrees with it. Electronically signed by: Bird Easley M.D. Narrative 06/25/2022 8:43 AM CDT EXAMINATION: ??LIMITED ABDOMINAL SONOGRAM HISTORY: ??History of intragastric balloon placement, follow-up for research study. COMPARISON: ??Limited abdominal ultrasound from 06/04/2022 FINDINGS: ?? There is redemonstration of a fluid-filled balloon in the left upper quadrant that measures 11.7 x 11.3 x 8.3 cm, as noted on the prior exam 06/04/2022. ??Volume of 559 mL. Procedure Note Bird Easley MD - 06/25/2022 EXAMINATION: LIMITED ABDOMINAL SONOGRAM HISTORY: History of intragastric balloon placement, follow-up for research study. COMPARISON: Limited abdominal ultrasound from 06/04/2022 FINDINGS: There is redemonstration of a fluid-filled balloon in the left upper quadrant that measures 11.7 x 11.3 x 8.3 cm, as noted on the prior exam 06/04/2022. Volume of 559 mL. IMPRESSION: 1. Intragastric balloon with volume of 559 mL. Dictated by: Serenity Giang MD The radiology attending physician has personally reviewed this study, and had reviewed and/or edited this written report and agrees with it. Electronically signed by: Bird Easley M.D. us Jenny Schreiber BELT LOOP MACHINE OPERATOR IMG US PROCEDURES Final Res ult * US Abdomen Limited (06/04/2022 8:04 AM EXECUTIVE COMPENSATION ANALYST) Anatomical Region Laterality Modality Abdomen N/A Ultrasound 06/04/2022 8:08 AM EXECUTIVE COMPENSATION ANALYST Impressions 06/04/2022 8:17 AM EXECUTIVE COMPENSATION ANALYST Intragastric balloon as described above. Dictated by: Estefany Salcedo PA-C The radiology attending physician has personally reviewed this study, and had reviewed and/or edited this written report and agrees with it. Electronically signed by: Helen Walker M.D. Narrative 06/04/2022 8:17 AM EXECUTIVE COMPENSATION ANALYST EXAMINATION: LIMITED ABDOMINAL SONOGRAM HISTORY: 42-year-old female with intragastric balloon. ??This is a research study. COMPARISON: None FINDINGS: There is a fluid-filled balloon in the left upper quadrant that measures 10.6 x 7.1 x 8.5 cm. Procedure Note Helen Walker MD - 06/04/2022 EXAMINATION: LIMITED ABDOMINAL SONOGRAM HISTORY: 42-year-old female with intragastric balloon. This is a research study. COMPARISON: None FINDINGS: There is a fluid-filled balloon in the left upper quadrant that measures 10.6 x 7.1 x 8.5 cm. IMPRESSION: Intragastric balloon as described above. Dictated by: Estefany Salcedo PA-C The radiology attending physician has personally reviewed this study, and had reviewed and/or edited this written report and agrees with it. Electronically signed by: Helen Walker M.D. us Jenny Schreiber BELT LOOP MACHINE OPERATOR IMG US PROCEDURES Final Res ult documented in this encounter Visit Diagnoses Diagnosis Research study patient- Primary Research study patient Research study patient Research study patient Research study patient Research study patient Research study patient Research study patient Research study patient documented in this encounter Care Teams Sausage Smoker Relationship Specialty Start Date End Date Melonie Ochoa MD PCP - General 01/30/18 04/07/23 documented as of this encounter
--- OUTSIDE RECORDS SUMMARY | 2024-04-11 00:53 | XMS_ITS | Encounter Summary ---
Author Organization [facility] Address [address] [place] [address] Phone Care Team Providers Care Rental Manager Name Role Phone Melonie Ochoa MD Primary Care Provider Encounter Details Date Type Department Care Team (Late st Contact Info) Description 09/03/2022 8:30 AM CDT Office Visit [facility] [address] [facility] 12[address] [place] [address] [place] [address] Waqar Santiago MD [address] [place] [address] Research study patient (Primary Dx) [...] on file Legal Sex Female 12:45 AM TIP CEMENTER Gender Identity Female 03/17/2022 5:30 PM TIP CEMENTER Sexual Orientation Not on file documented as of this encounter Last Filed Vital Signs Vital Sign Reading Time Taken Comments Blood Pressure - - Pulse - - Temperature - - Respiratory Rate - - Oxygen Saturation - - Inhaled Oxygen Concentration - - Weight 100.9 kg (222 lb 6.4 oz) 09/03/2022 3:48 PM CDT Height - - Body Mass Index 35.9 06/04/2022 8:30 AM TIP CEMENTER documented in this encounter Progress Notes * Anjelica Johnson RN - 09/03/2022 8:30 AM CDT Audacity week 18 visit Patient is doing well. Next visit scheduled 09/17/2022 Vitals Wt 100.9 kg (222 lb 6.4 oz) BMI 35.90 kg/m?? Wt Readings from Last 10 Encounters: 09/03/22 100.9 kg (222 lb 6.4 oz) 08/20/22 99.8 kg (220 lb) 08/06/22 99.2 kg (218 lb 12.8 oz) 07/23/22 100.3 kg (221 lb 3.2 oz) 06/25/22 100.7 kg (222 lb) 06/04/22 102.2 kg (225 lb 3.2 oz) 05/12/22 103.9 kg (229 lb) 05/06/22 106.1 kg (234 lb) 05/06/22 106.4 kg (234 lb 9.6 oz) 03/24/22 106.7 kg (235 lb 3.2 oz) documented in this encounter Plan of Treatment Not on file documented as of this encounter Visit Diagnoses Diagnosis Research study patient- Primary documented in this encounter Care Teams Rental Manager Relationship Specialty Start Date End Date Melonie Ochoa MD PCP - General 01/30/18 04/07/23 documented as of this encounter
--- OUTSIDE RECORDS SUMMARY | 2024-04-11 00:53 | XMS_ITS | Encounter Summary ---
Author Organization [facility] Address [address] [place] [address] Phone Care Team Providers Care Dance Teacher Name Role Phone Melonie Ochoa MD Primary Care Provider Encounter Details Date Type Department Care Team (Late st Contact Info) Description 09/22/2022 2:15 PM CDT Office Visit [facility] Gastroenterology [address] [facility] 12[address] [place] [address] [place] [address] Waqar Santiago MD [address] [place] [address] Research study patient (Primary Dx) [...] on file Legal Sex Female 12:45 AM SALESPERSON NECKTIES Gender Identity Female 03/17/2022 5:30 PM SALESPERSON NECKTIES Sexual Orientation Not on file documented as of this encounter Last Filed Vital Signs Vital Sign Reading Time Taken Comments Blood Pressure - - Pulse - - Temperature - - Respiratory Rate - - Oxygen Saturation - - Inhaled Oxygen Concentration - - Weight 99.9 kg (220 lb 3.2 oz) 09/22/2022 2:10 P M CDT Height - - Body Mass Index 35.54 06/04/2022 8:30 AM SALESPERSON NECKTIES documented in this encounter Progress Notes * Jenny Schreiber NP - 09/22/2022 2:15 PM CDT Audacity visit completed by Crispin Pinto RN, custom studio coordinator. documented in this encounter Plan of Treatment Not on file documented as of this encounter Visit Diagnoses Diagnosis Research study patient- Primary documented in this encounter Care Teams Dance Teacher Relationship Specialty Start Date End Date Melonie Ochoa MD PCP - General 01/30/18 04/07/23 documented as of this encounter
--- OUTSIDE RECORDS SUMMARY | 2024-04-11 00:53 | XMS_ITS | Encounter Summary ---
Author Organization 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 documented in this encounter Plan of Treatment Not on file documented as of this encounter Visit Diagnoses Diagnosis Research study patient- Primary documented in this encounter Care Teams Float Builder Relationship Specialty Start Date End Date Melonie Ochoa MD PCP - General 01/30/18 04/07/23 documented as of this encounter
--- OUTSIDE RECORDS SUMMARY | 2024-04-11 00:53 | XMS_ITS | Encounter Summary ---
Author Organization [facility] Healthcare Address [address] [place] [address] Care Team Providers Care Him Clerk Name Role Phone Melonie Ochoa MD Primary Care Provider [phone] Reason for Referral * Diagnostic Imaging (Routine) - Closed Specialty Diagnoses / Procedures Referred By Contac t Referred To Contact Diagnoses Research study patient Procedures US Abdomen Limited US Abdomen Complete Jenny Schreiber NP [address] [address] Phone: tel: fax: [address] [phone] Referral ID Status Reason Start Date Expiration Date Visits Re quested Visits Authorized [id number] Closed 05/12/2022 06/11/2023 1 1 Reason for Visit * Diagnostic Imaging (Routine) - Closed Specialty Diagnoses / Procedures Referred By Contac t Referred To Contact Diagnoses Research study patient Procedures US Abdomen Limited US Abdomen Complete Jenny Schreiber NP [address] [address] Phone: tel: fax: [address] [address] Referral ID Status Reason Start Date Expiration Date Visits Re quested Visits Authorized [id number] Closed 05/12/2022 06/11/2023 1 1 Encounter Details Date Type Department Care Team (Latest Contact Info) Description 09/03/2022 7:14 AM CDT - 09/03/2022 11:59 PM CDT Hospital Encounter [facility] [address] [place] [address] Research study patient Discharge Disposition: Discharge to home or self care Social History Tobacco Use Types Packs/Day [...] on file 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 cetirizine (ZyrTEC) 10 mg tablet Take 1 tablet (10 mg total) by mouth daily 03/24/2012 estrogens-methylTE STOSTERone (EEMT,COVARYX) 1.25-2.5 mg per tablet 03/21/2022 fluticasone propionate (FLONASE) 50 mcg/actuation nasal spray Administer 1 spray into affected nostril(s) daily 10/22/2015 propranoloL (INDERAL) 10 mg tablet TAKE 1 TABLET BY MOUTH THREE TIMES A DAY NEEDED FOR ANXIETY 12/24/2020 FLUoxetine (PROzac) 20 mg capsule Take 1 tablet by mouth daily 11/11/2020 3 hyoscyamine (LEVSIN) 0.125 mg tabletIndications: Urinary Incontinence Take 1 tablet (0.125 mg total) by mouth every 4 (four) hours as needed for cramping for up to 7 days Take for 3-7 days following balloon swallow. 42 tablet 1 04/25/2022 3 omeprazole (PriLOSEC) 40 mg capsuleIndications :Treatment of Non-Bleeding Gastric Disorder Take 1 capsule (40 mg total) by mouth daily before breakfast Start 7 days before Day 0 90 capsule 3 04/25/2022 3 documented as of this encounter Discharge Disposition Disposition Code Departure Means Destination Discharge to home or self care documented in this encounter Plan of Treatment Not on file documented as of this encounter Procedures Procedure Name Priority Date/Time Associated Diagnosis Comments US ABDOMEN LIMITED Schedule Routine, Read Routine (OP Routine) 09/03/2022 7:39 AM CDT Research study patient documented in this encounter Results * US Abdomen Limited (09/03/2022 7:39 AM [...] it. Electronically signed by: Helen Walker M.D. Jenny Schreiber SILVER SOLDERER IMG US PROCEDURES Final Res ult documented in this encounter Visit Diagnoses Diagnosis Research study patient documented in this encounter Care Teams Him Clerk Relationship Specialty Start Date End Date Melonie Ochoa MD PCP - General 01/30/18 04/07/23 documented as of this encounter
--- OUTSIDE RECORDS SUMMARY | 2024-04-11 00:53 | XMS_ITS | Encounter Summary ---
Author Organization [facility] Healthcare Address [address] [place] [address] Care Team Providers Care Dehydrogenation Converter Helper Name Role Phone Melonie Ochoa MD Primary Care Provider [phone] Reason for Referral * Diagnostic Imaging (Routine) - Closed Specialty Diagnoses / Procedures Referred By Contac t Referred To Contact Diagnoses Research study patient Procedures US Abdomen Limited US Abdomen Complete Jenny Schreiber NP [address] [address] Phone: tel: fax: [address] [phone] Referral ID Status Reason Start Date Expiration Date Visits Re quested Visits Authorized [id number] Closed 05/12/2022 06/11/2023 1 1 Reason for Visit * Diagnostic Imaging (Routine) - Closed Specialty Diagnoses / Procedures Referred By Contac t Referred To Contact Diagnoses Research study patient Procedures US Abdomen Limited US Abdomen Complete Jenny Schreiber NP [address] [address] Phone: tel: fax: [address] [phone] Referral ID Status Reason Start Date Expiration Date Visits Re quested Visits Authorized [id number] Closed 05/12/2022 06/11/2023 1 1 Encounter Details Date Type Department Care Team (Latest Contact Info) Description 08/06/2022 7:19 AM CDT - 08/06/2022 11:59 PM CDT Hospital Encounter [facility] [address] [place] [address] Research study patient Discharge Disposition: Discharge to [...] on file 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 us Jenny Schreiber SATURATOR IMG US PROCEDURES Final Res ult documented in this encounter Visit Diagnoses Diagnosis Research study patient documented in this encounter Care Teams Dehydrogenation Converter Helper Relationship Specialty Start Date End Date Melonie Ochoa MD PCP - General 01/30/18 04/07/23 documented as of this encounter
--- OUTSIDE RECORDS SUMMARY | 2024-04-11 00:53 | XMS_ITS | Encounter Summary ---
Author Organization [facility] Healthcare Address [address] [place] [address] Care Team Providers Care Cis Coordinator Name Role Phone Melonie Ochoa MD Primary Care Provider [phone] Reason for Referral * Diagnostic Imaging (Routine) - Closed Specialty Diagnoses / Procedures Referred By Contac t Referred To Contact Diagnoses Research study patient Procedures US Abdomen Limited US Abdomen Complete Jenny Schreiber NP [address] [address] Phone: tel: fax: [address] [address] Referral ID Status Reason Start Date Expiration Date Visits Re quested Visits Authorized [id number] Closed 05/12/2022 06/11/2023 1 1 ACCOUNT DIRECTOR Reason for Visit * Diagnostic Imaging (Routine) - Closed Specialty Diagnoses / Procedures Referred By Contac t Referred To Contact Diagnoses Research study patient Procedures US Abdomen Limited US Abdomen Complete Jenny Schreiber NP [address] [address] Phone: tel: fax: [address] [phone] Referral ID Status Reason Start Date Expiration Date Visits Re quested Visits Authorized [id number] Closed 05/12/2022 06/11/2023 1 1 Encounter Details Date Type Department Care Team (Latest Contact Info) Description 06/04/2022 7:45 AM VP ACCOUNT DIRECTOR - 06/04/2022 11:59 PM VP ACCOUNT DIRECTOR Hospital Encounter [facility] ([facility]) [address] [place], [place] [id number] Research study patient Discharge Disposition: Discharge to [...] on file Legal Sex Female 12:45 AM VP ACCOUNT DIRECTOR Gender Identity Female 03/17/2022 5:30 PM VP ACCOUNT DIRECTOR Sexual Orientation Not on file documented as [...] LIMITED Schedule Routine, Read Routine (OP Routine) 06/04/2022 8:04 AM VP ACCOUNT DIRECTOR Research study patient documented in this encounter Results * US Abdomen Limited (06/04/2022 8:04 AM VP ACCOUNT DIRECTOR) Anatomical Region Laterality Modality Abdomen N/A Ultrasound 06/04/2022 8:08 AM VP ACCOUNT DIRECTOR Impressions 06/04/2022 8:17 AM VP ACCOUNT DIRECTOR Intragastric balloon as described above. Dictated by: Estefany Salcedo PA-C The radiology attending physician has personally reviewed this study, and had reviewed and/or edited this written report and agrees with it. Electronically signed by: Helen Walker M.D. Narrative 06/04/2022 8:17 AM VP ACCOUNT DIRECTOR EXAMINATION: LIMITED ABDOMINAL SONOGRAM HISTORY: 42-year-old female [...] Intragastric balloon as described above. Dictated by: Esteafny Salcedo PA-C The radiology attending physician has personally reviewed this study, and had reviewed and/or edited this written report and agrees with it. Electronically signed by: Helen Walker M.D. us Jenny Schreiber MOBILE APPLICATION ENGINEER IMG US PROCEDURES Final Res ult documented in this encounter Visit Diagnoses Diagnosis Research study patient documented in this encounter Care Teams Cis Coordinator Relationship Specialty Start Date End Date Melonie Ochoa MD PCP - General 01/30/18 04/07/23 documented as of this encounter
--- OUTSIDE RECORDS SUMMARY | 2024-04-11 00:53 | XMS_ITS | Encounter Summary ---
Author Organization [facility] Address [address] [place] [address] Phone Care Team Providers Care Orthodontic Band Maker Name Role Phone Melonie Ochoa MD Primary Care Provider Encounter Details Date Type Department Care Team (Late st Contact Info) Description 07/23/2022 8:00 AM CDT Office Visit [facility] Gastroenterology [address] 12th [place] [address] [place] [address] Waqar Santiago MD [address] [place] [address] Research study patient (Primary Dx) [...] on file Legal Sex Female 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 Next visit scheduled 08/20/2022. Vitals Wt 100.3 kg (221 lb 3.2 oz) BMI 35.70 kg/m?? Wt Readings from Last 10 Encounters: 07/23/22 100.3 kg (221 lb 3.2 oz) 06/25/22 100.7 kg (222 lb) 06/04/22 102.2 kg (225 lb 3.2 oz) 05/12/22 103.9 kg (229 lb) 05/06/22 106.1 kg (234 lb) 05/06/22 106.4 kg (234 lb 9.6 oz) 03/24/22 106.7 kg (235 lb 3.2 oz) 10/07/19 102.5 kg (226 lb) 01/30/18 95.3 kg (210 lb) No orders of the defined types were placed in this encounter. documented in this encounter Plan of Treatment Not on file documented as of this encounter Visit Diagnoses Diagnosis Research study patient- Primary documented in this encounter Care Teams Orthodontic Band Maker Relationship Specialty Start Date End Date Melonie Ochoa MD PCP - General 01/30/18 04/07/23 documented as of this encounter
--- OUTSIDE RECORDS SUMMARY | 2024-04-11 00:53 | XMS_ITS | Encounter Summary ---
Author Organization [facility] Healthcare Address [address] [place] [address] Care Team Providers Care Accounts Executive Name Role Phone Melonie Ochoa MD Primary Care Provider [phone] Reason for Referral * Diagnostic Imaging (Routine) - Closed Specialty Diagnoses / Procedures Referred By Contac t Referred To Contact Diagnoses Research study patient Procedures US Abdomen Limited US Abdomen Complete Jenny Schreiber NP [address] [address] Phone: tel: fax: [address] [phone] Referral ID Status Reason Start Date Expiration Date Visits Re quested Visits Authorized [id number] Closed 05/12/2022 06/11/2023 1 1 Reason for Visit * Diagnostic Imaging (Routine) - Closed Specialty Diagnoses / Procedures Referred By Contac t Referred To Contact Diagnoses Research study patient Procedures US Abdomen Limited US Abdomen Complete Jenny Schreiber NP [address] [address] Phone: tel: fax: [address] [phone] Referral ID Status Reason Start Date Expiration Date Visits Re quested Visits Authorized [id number] Closed 05/12/2022 06/11/2023 1 1 Encounter Details Date Type Department Care Team (Latest Contact Info) Description 07/23/2022 7:00 AM CDT - 07/23/2022 11:59 PM CDT Hospital Encounter [facility] [address] [place] [address] Research study patient Discharge Disposition: Discharge to [...] on file 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 us Jenny Schreiber CUSTOMER ASSISTANCE ASSOCIATE IMG US PROCEDURES Final Res ult documented in this encounter Visit Diagnoses Diagnosis Research study patient documented in this encounter Care Teams Accounts Executive Relationship Specialty Start Date End Date Melonie Ochoa MD PCP - General 01/30/18 04/07/23 documented as of this encounter
--- OUTSIDE RECORDS SUMMARY | 2024-04-11 00:53 | XMS_ITS | Encounter Summary ---
Author Organization [facility] Healthcare Address [address] [place] [address] Care Team Providers Care Freight Forwarder Name Role Phone Melonie Ochoa MD Primary Care Provider [phone] Reason for Referral * Diagnostic Imaging (Routine) - Closed Specialty Diagnoses / Procedures Referred By Contac t Referred To Contact Diagnoses Research study patient Procedures US Abdomen Limited US Abdomen Complete Jenny Schreiber NP [address] [address] Phone: tel: fax: [address] [phone] Referral ID Status Reason Start Date Expiration Date Visits Re quested Visits Authorized [id number] Closed 05/12/2022 06/11/2023 1 1 Reason for Visit * Diagnostic Imaging (Routine) - Closed Specialty Diagnoses / Procedures Referred By Contac t Referred To Contact Diagnoses Research study patient Procedures US Abdomen Limited US Abdomen Complete Jenny Schreiber NP [address] [address] Phone: tel: fax: [address] [phone] Referral ID Status Reason Start Date Expiration Date Visits Re quested Visits Authorized [id number] Closed 05/12/2022 06/11/2023 1 1 Encounter Details Date Type Department Care Team (Latest Contact Info) Description 12/17/2022 6:47 AM CDT - 12/17/2022 11:59 PM CDT Hospital Encounter [facility] [address] [place] [address] Research study patient Discharge Disposition: Discharge to [...] on file Legal Sex Female 12: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 cetirizine (ZyrTEC) 10 mg tablet Take 1 tablet (10 mg total) by mouth daily 03/24/2012 estrogens-methyl TESTOSTERone (EEMT,COVARYX) 1.25-2.5 mg per tablet 03/21/2022 famotidine (PEPCID) 40 mg tabletIndication s:Research study patient Take 1 tablet (40 mg total) by mouth daily 30 tablet 2 10/27/2022 fluticasone propionate (FLONASE) 50 mcg/actuation nasal spray Administer 1 spray into affected nostril(s) daily 10/22/2015 omeprazole (PriLOSEC) 40 mg capsuleIndicatio ns:Treatment of Non-Bleeding Gastric Disorder Take 1 capsule (40 mg total) by mouth daily before breakfast 90 capsule 3 10/06/2022 propranoloL (INDERAL) 10 mg tablet TAKE 1 TABLET BY MOUTH THREE TIMES A DAY NEEDED FOR ANXIETY 12/24/2020 documented as of this encounter Discharge Disposition Disposition Code Departure Means Destination Discharge to home or self care documented in this encounter Plan of Treatment Not on file documented as of this encounter Procedures Procedure Name Priority Date/Time Associated Diagnosis Comments US ABDOMEN LIMITED Schedule Routine, Read Routine (OP Routine) 12/17/2022 7:19 AM CDT Research study patient documented in [...] by: Helen Walker M.D. us Jenny Schreiber JIG GRINDER IMG US PROCEDURES Final Res ult documented in this encounter Visit Diagnoses Diagnosis Research study patient documented in this encounter Care Teams Freight Forwarder Relationship Specialty Start Date End Date Melonie Ochoa MD PCP - General 01/30/18 04/07/23 documented as of this encounter
--- OUTSIDE RECORDS SUMMARY | 2024-04-11 00:53 | XMS_ITS | Encounter Summary ---
Author Organization [facility] Healthcare Address [address] [place] [address] Care Team Providers Care Egyptologist Name Role Phone Melonie Ochoa MD Primary Care Provider [phone] Reason for Visit * Auth/Cert (Routine) Specialty Diagnoses / Procedures Referred By Yanni t Referred To Contact Diagnoses Research study patient Research study patient [Z00.6] Procedures [place] NASO/YESY-GASTRIC TUBE PLMT REQ PHYS&FLUOR GDNCE NASOGASTRIC TUBE PLACEMENT Referral ID Status Reason Start Date Expiration Date Visits Re quested Visits Authorized [id number] 1 1 Encounter Details Date Type Department Care Team (Latest Contact Info) Description 10/20/2022 8:54 AM CDT - 10/20/2022 11:37 AM CDT Hospital Encounter [facility] [address] [place] [address] Waqar Santiago MD [address] [place] [address] Discharge Disposition: Discharge to home or self [...] on file Legal Sex Female 12:45 AM BOILER 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 -For stomach cramping, Levsin (hyoscyamine) under tongue every 4 hours for 3 days up to 7 days as needed. Please refer to your brochure for additional information. Brief diet overview: *see brochure for more examples of each category Day ~1-2 clears (ie. electrolyte drinks, popsicles, bone broth, clear protein drinks) Days ~3-5-full liquids (ie. ok to contain milk, protein shakes, smooth armenian yogurt) Days ~5-7-blended foods (ie. smoothies, blended soups) Day ~7-10 -soft foods (ie. soft scrambled eggs, cottage cheese, soft cooked vegetables, canned fruits, fish, soft rotisserie chicken) Important reminders: -AVIOD NSAIDS! (Ibuprofen, Aleve, Motrin, aspirin, etc.) Tylenol is ok. -Drink! sips of fluids regularly to prevent dehydration. -You will receive a phone call 24 hours post swallow. -Return to clinic in 1 week as scheduled. -If vomiting, stomach cramping or nausea continues beyond 3 days, please contact Gosia or Crispin Pinto. Contact info If you have any questions, feel free to email us: [email or web address] -For urgent concerns after hours call [phone], and ask for the GI fellow process control operator. Inform them of the doctor who placed your balloon. documented in this encounter Medications at Time of Discharge calcium carbonate-vitamin D3 500mg (1,250mg) -600 unit tablet Take by mouth. cetirizine (ZyrTEC) 10 mg tablet Take 1 tablet (10 mg total) by mouth daily 03/24/2012 estrogens-methylTES TOSTERone (EEMT,COVARYX) 1.25-2.5 mg per tablet 03/21/2022 fluticasone propionate (FLONASE) 50 mcg/actuation nasal spray Administer 1 spray into affected nostril(s) daily 10/22/2015 hyoscyamine (LEVSIN) 0.125 mg tabletIndications:U rinary Incontinence Take 1 tablet (0.125 mg total) by mouth every 4 (four) hours as needed for cramping for up to 14 days Take for 3-7 days following balloon swallow. 42 tablet 1 10/06/2022 omeprazole (PriLOSEC) 40 mg capsuleIndications: Treatment of Non-Bleeding Gastric Disorder Take 1 capsule (40 mg total) by mouth daily before breakfast 90 capsule 3 10/06/2022 propranoloL (INDERAL) 10 mg tablet TAKE 1 TABLET BY MOUTH THREE TIMES A DAY NEEDED FOR ANXIETY 12/24/2020 ondansetron ODT (ZOFRAN-ODT) 8 mg disintegrating tabletIndications:P revention of Post-Operative Nausea and Vomiting Take 1 tablet (8 mg total) by mouth every 8 (eight) hours for 20 days Take for 3-7 days, following capsule swallow 30 tablet 1 10/06/2022 3 documented as of this encounter Discharge Disposition Disposition Code Departure Means Destination Comment s Discharge to home or self care documented in this encounter H&P Notes * Waqar Santiago MD - 10/20/2022 11:21 AM CDT Pre Endoscopy History and Physical Airam Munoz is a 42 y.o. female who is here for Procedure(s): NASOGASTRIC TUBE PLACEMENT The indication(s) for the procedure(s): balloon placement. Past Medical History: Diagnosis Date Endometriosis H/O dilation and curettage Hyperlipidemia Past Surgical History: Procedure Laterality Date APPENDECTOMY HYSTERECTOMY OOPHERECTOMY OOPHORECTOMY Social History Tobacco Use Smoking status: Never Smokeless tobacco: Never Substance and Sexual Activity Drug use: Never Sexual activity: None Alcohol Use: Unknown (05/06/2022) AUDIT-C Frequency of Alcohol Consumption: Monthly or less Average Number of Drinks: 1 or 2 Frequency of Binge Drinking: Not on file Family History Adopted: Yes Problem Relation Age of Onset Breast cancer Paternal Grandmother No Known Allergies Prior to Admission medications Medication Sig Start Date End Date Taking? Authorizing Provider calcium carbonate-vitamin D3 500mg (1,250mg) -600 unit tablet Take by mouth. Yes Brian Pena MD cetirizine (ZyrTEC) 10 mg tablet Take 1 tablet (10 mg total) by mouth daily 03/24/12 Yes Brian Pena MD estrogens-methylTESTOSTERone (EEMT,COVARYX) 1.25-2.5 mg per tablet 03/21/22 Yes Brian Pena MD fluticasone propionate (FLONASE) 50 mcg/actuation nasal spray Administer 1 spray into affected nostril(s) daily 10/22/15 Yes Brian Pena MD omeprazole (PriLOSEC) 40 mg capsule Take 1 capsule (40 mg total) by mouth daily before breakfast 10/06/22 10/06/23 Yes Jenny Schreiber NP hyoscyamine (LEVSIN) 0.125 mg tablet Take 1 tablet (0.125 mg total) by mouth every 4 (four) hours as needed for cramping for up to 14 days Take for 3-7 days following balloon swallow. 10/06/22 10/20/22Jenny Schreiber NP ondansetron ODT (ZOFRAN-ODT) 8 mg disintegrating tablet Take 1 tablet (8 mg total) by mouth every 8(eight) hours for 20 days Take for 3-7 days, following capsule swallow 10/06/22 10/26/22 Jenny Schreiber NP propranoloL (INDERAL) 10 mg tablet TAKE 1 TABLET BY MOUTH THREE TIMES A DAY NEEDED FOR ANXIETY 12/24/20 Brian Pena MD Review of Systems A pertinent, focused review of systems was completed and negative, except as noted above. OBJECTIVE: Vitals: AF, 60, rr 12 Physical Exam: Airway: No significant abnormality. Mouth, jaw, oropharynx, neck and airway: No significant abnormality. Mallampati score: Class II (soft palate, major part of uvula, fauces visible). Cardiac: No significant abnormality. Pulmonary: No significant abnormality. Neurological: No significant abnormality. Gastrointestinal: No significant abnormality. The risks and complications of the procedure have been explained to the patient. Informed consent was signed. Impression and plan: Will proceed with the planned procedure for the reasons stated above. documented in this encounter Procedure Notes * Waqar Santiago MD - 10/20/2022 11:22 AM CDTAssociated Order(s): ENDOSCOPY PROCEDURE GI ENDOSCOPY [facility] Patient Name: Airam Munoz Procedure Date: 10/20/2022 11:22 AM Date of : 1980 Admit Type: Outpatient Age: 42 Gender: Female Attending MD: Waqar Santiago M.D. Room: [facility] ENDOSCOPY ROOM 6 Note Status: Finalized Procedure: Non-endoscopic Tube Procedure Indications: Allurion Balloon Swallow for Audacity Study IRB #[id number] Referring MD: Waqar Santiago M.D. Providers: Waqar Santiago M.D. Medicines: None Complications: No immediate complications. Estimated Blood Loss: Estimated blood loss: none. Procedure: After obtaining informed consent, the site was prepped and the procedure was performed. The procedure was accomplished without difficulty. The patient tolerated the procedure well. Findings: The patient was brought into the procedure room. The capsule was placed in the patient's mouth. The patient was able to swallow the capsule with flat water in 1 attempts. Location in the stomach was confirmed with fluoroscopy. The balloon was then inflated with 550 cc of saline. Appropriate position in the stomach and inflation of the balloon was again confirmed with fluoroscopy and the inflation catheter was removed, complete removal confirmed with visual inspection. Impression: - Successful balloon placement. Recommendation: - Medications: -Akynzeo for nausea already taken 2 hours prior to your swallow. -Continue your PPI daily -If experiencing nausea, ok to take Zofran (ondansetron) under tongue and continue every 8 hours for up to 7days as needed. -If experiencing stomach cramping, ok to take Levsin (hyoscyamine) under tongue and continue every 4 hours for up to 7 days as needed. Please refer to your brochure for additional information. Important reminders: -AVIOD NSAIDS! (Ibuprofen, Aleeve, Motrin, aspirin, etc.) Tylenol is ok. -Drink! sips of fluids regularly to prevent dehydration. -You will receive a phone call 24 hours post swallow. -Return to clinic in 1 week as scheduled. -If vomiting, stomach cramping or nausea continues beyond 3 days, please contact Jenny Schreiber or Crispin Pinto. Contact info -Regular business hours: Please email Jenny Schreiber NP at [email or web address], . Crispin Pinto RN, community outreach coordinator, [email or web address] [phone] -For urgent concerns after hours call [phone], and ask for the GI fellow process control operator.?Inform them of the DrJeanmarie who placed you balloon. Electronically signed by Waqar Santiago MD Waqar Santiago M.D. 10/20/2022 11:24:07 AM . Number of Addenda: 0 Note Initiated On: 10/20/2022 11:22 AM Recognized by the [employer] for promoting quality in endoscopy documented in this encounter Plan of Treatment Not on file documented as of this encounter Procedures Procedure Name Priority Date/Time Associated Diagnosis Comments ENDOSCOPY PROCEDURE 10/20/2022 1 1:22 AM CDT RAD S AND I FLUOROSCOPY < 1 HOUR 10/20/2022 10:30 AM CDT Research study patient Special Needs c-arm NASOGASTRIC TUBE PLACEMENT 10/20/2022 10:30 AM CDT Research study patient Special Needs c-arm documented in this encounter Results * ENDOSCOPY PROCEDURE (10/20/2022 11:22 AM CDT) Anatomical Region Laterality Modality Other Narrative Procedure Note Waqar Santiago MD - 10/20/2022 11:22 AM CDT GI ENDOSCOPY [facility] Patient Name: Airam Munoz Procedure Date: 10/20/2022 11:22 AM Date of : 1980 Admit Type: Outpatient Age: 42 Gender: Female Attending MD: Waqar Santiago M.D. Room: [facility] ENDOSCOPY ROOM 6 Note Status: Finalized Procedure: Non-endoscopic Tube Procedure Indications: Allurion Balloon Swallow for Audacity Study IRB #[id number] Referring MD: Waqar Santiago M.D. Providers: Waqar Santiago M.D. Medicines: None Complications: No immediate complications. Estimated Blood Loss: Estimated blood loss: none. Procedure: After obtaining informed consent, the site wasprepped and the procedure was performed. The procedure was accomplished without difficulty. The patienttolerated the procedure well. Findings: The patient was brought into the procedure room. The capsule wasplaced in the patient's mouth. The patient was able to swallow the capsulewith flat water in 1 attempts. Location in the stomach was confirmed with fluoroscopy. The balloon was then inflated with 550 cc of saline. Appropriate position in the stomach and inflation of the balloon was again confirmed with fluoroscopy and the inflation catheter wasremoved, complete removal confirmed with visual inspection. Impression: - Successful balloon placement. Recommendation: - Medications: -Akynzeo for nausea already taken 2 hours prior to your swallow. -Continue your PPI daily -If experiencing nausea, ok to take Zofran (ondansetron) under tongue and continue every 8hours for up to 7days as needed. -If experiencing stomach cramping, ok to takeLevsin (hyoscyamine) under tongue and continue every 4hours for up to 7 days as needed. Please refer to your brochure for additional information. Important reminders: -AVIOD NSAIDS! (Ibuprofen, Aleeve, Motrin, aspirin, etc.) Tylenol is ok. -Drink! sips of fluids regularly to prevent dehydration. -You will receive a phone call 24 hours postswallow. -Return to clinic in 1 week as scheduled. -If vomiting, stomach cramping or nausea continues beyond 3 days, please contact Jenny Pinto. Contact info -Regular business hours: Please email Jenny Schreiber NP at [email or web address], . Crispin Pinto RN, community outreach coordinator, [email or web address] [phone] -For urgent concerns after hours call [phone], and ask for the GI fellow process control operator.? ? ?Inform them ofthe who placed you balloon. Electronically signed by Waqar Santiago MD Waqar Santiago M.D. 10/20/2022 11:24:07 AM . Number of Addenda: 0 Note Initiated On: 10/20/2022 11:22 AM Recognized by the [employer] for promoting quality in endoscopy Waqar Santiago MD ENDOSCOPY PROCEDUR ES Final Result documented in this encounter Visit Diagnoses Diagnosis Research study patient- Primary documented in this encounter Admitting Diagnoses Diagnosis Research study patient documented in this encounter Orders Discharge Count Last Ordered Date First Orde red Date DISCHARGE PATIENT 1 10/20/2022 documented in this encounter Care Teams Egyptologist Relationship Specialty Start Date End Date Melonie Ochoa MD PCP - General 01/30/18 04/07/23 documented as of this encounter
--- OUTSIDE RECORDS SUMMARY | 2024-04-11 00:53 | XMS_ITS | Encounter Summary ---
Author Organization [facility] Healthcare Address [address] [place] [address] Care Team Providers Care Wood Casket Assembler Name Role Phone Melonie Ochoa MD Primary Care Provider Reason for Visit * Auth/Cert Specialty Diagnoses / Procedures Referred By Yanni t Referred To Contact Diagnoses Research study patient Research study patient [Z00.6] Procedures [place] NASO/YESY-GASTRIC TUBE PLMT REQ PHYS&FLUOR GDNCE NASOGASTRIC TUBE PLACEMENT Referral ID Status Reason Start Date Expiration Date Visits Re quested Visits Authorized [id number] 1 1 Encounter Details Date Type Department Care Team (Late st Contact Info) Description 05/06/2022 10:00 AM TINNER HELPER - 05/06/2022 10:30 AM TINNER HELPER Surgery [facility] [address] [place] [address] Asad Garcia MD [address] [place] [address] NASOGASTRIC TUBE PLACEMENT Surgery Details Date/Time Status Location OR Service Patient Class Case Class Case Type Trauma Case? 05/06/2022 10:00 AM Posted [facility] ENDOSCOPY GI 06 Gastroenterology Outpatient Elective Panel 1 Procedure LRB Anes Op Region Wound Class Comments NASOGASTRIC TUBE PLACEMENT N/A Choice RAD S AND I FLUOROSCOPY < 1 HOUR N/A General Surgeon Surgeon Role Service Panel Asad Garcia MD Primary Gastroentero logy 1 documented in this encounter Social History Tobacco [...] on file Legal Sex Female 12:45 AM TINNER HELPER Gender Identity Female 03/17/2022 5:30 PM TINNER HELPER Sexual Orientation Not on file documented as of this encounter Last Filed Vital Signs Vital Sign Reading Time Taken Comments Blood Pressure 119/67 05/06/2022 8:59 AM TINNER HELPER Pulse 67 05/06/2022 8:59 AM TINNER HELPER Temperature 36 ??C (96.8 ??F) 05/06/2022 8:59 AM TINNER HELPER Respiratory Rate 16 05/06/2022 8:59 AM TINNER HELPER Oxygen Saturation 100% 05/06/2022 8:59 AM TINNER HELPER Inhaled Oxygen Concentration - - Weight 106.1 kg (234 lb) 05/06/2022 8:59 AM TINNER HELPER Height 167.6 cm (5' 6 ) 05/06/2022 8:59 AM TINNER HELPER Body Mass Index 37.77 05/06/2022 8:59 AM TINNER HELPER documented in this encounter Discharge Instructions * Discharge Instructions* Jenny Jiang, [place] - 05/06/2022 9:07 AM TINNER HELPER Audacity Balloon Swallow Discharge Instructions Medications: -Akynzeo for nausea already taken 2 [...] hours: Please email Jenny Schreiber NP at [email or web address] . Crispin Pinto RN, community service officer coordinator, [email or web address] [phone] -For urgent concerns after hours call [phone], and ask for the GI fellow coater carbon paper. Inform them of the DrJeanmarie who placed you balloon. ER HELPER documented in this encounter Medications at Time [...] documented in this encounter H&P Notes * Asad Garcia MD - 05/06/2022 10:46 AM CST Pre Endoscopy History and Physical Airam Munoz is a 42 y.o. female who is here for Procedure(s): NASOGASTRIC TUBE PLACEMENT Audacity intragastric balloon The indication(s) for the procedure(s): obesity; clinical trial. Past Medical History: Diagnosis Date Endometriosis H/O dilation and curettage Hyperlipidemia Past Surgical History: Procedure Laterality Date APPENDECTOMY HYSTERECTOMY OOPHERECTOMY OOPHORECTOMY Social History Tobacco Use Smoking status: Never Smokeless tobacco: Never Substance and Sexual Activity Drug use: Never Sexual activity: None Alcohol Use: Unknown Frequency of Alcohol Consumption: Monthly or less [...] MD cetirizine (ZyrTEC) 10 mg tablet Take 10 mg by mouth daily 03/24/12 Yes Brian Pena MD estrogens-methylTESTOSTERone (EEMT,COVARYX) 1.25-2.5 mg per tablet 03/21/22 Yes Brian Pena MD fluticasone propionate (FLONASE) 50 mcg/actuation nasal spray Administer 1 spray into affected nostril(s) daily 10/22/15 Yes Brian Pena MD omeprazole (PriLOSEC) 40 mg capsule Take 1 capsule (40 mg total) by mouth daily before breakfast Start 7 days before Day 0 04/23/22 04/23/23 Yes Jenny Schreiber NP propranoloL (INDERAL) 10 mg tablet TAKE 1 TABLET BY MOUTH THREE TIMES A DAY NEEDED FOR ANXIETY 12/24/20 Yes Brian Pena MD FLUoxetine (PROzac) 20 mg capsule Take 1 tablet by mouth daily 11/11/20 Brian Pena MD hyoscyamine (LEVSIN) 0.125 mg tablet Take 1 tablet (0.125 mg total) by mouth every 4 (four) hours as needed for cramping for up to 7 days Take for 3-7 days following balloon swallow. 04/25/22 05/02/22 Jenny Schreiber NP omeprazole (PriLOSEC) 40 mg capsule Take 1 capsule (40 mg total) by mouth daily before breakfast Start 7 days before Day 0 04/25/22 04/25/23 Jenny Schreiber NP estrogens-methylTESTOSTERone (EEMT,COVARYX) 0.625-1.25 mg per tablet Take by mouth 04/13/18 05/06/22 ProviderBrian MD fluticasone propionate (FLONASE) 50 mcg/actuation nasal spray Administer 2 sprays into affected nostril(s) daily 11/09/18 05/06/22 Provider, MD Brian Review of Systems A pertinent, focused review of systems was completed and negative, except as noted above. OBJECTIVE: Vitals: Vitals: 05/06/22 0859 BP: 119/67 Pulse: 67 Resp: 16 Temp: 36 ??C (96.8 ??F) TempSrc: Temporal SpO2: 100% Weight: 106.1 kg (234 lb) Height: 167.6 cm (5' 6 ) Physical Exam: Airway: No significant abnormality. Cardiac: No significant abnormality. Pulmonary: No significant abnormality. Neurological: No significant abnormality. Gastrointestinal: No significant abnormality. No sedation planned. Impression and plan: Will proceed with the planned procedure for the reasons stated above. ER HELPER documented in this encounter Procedure Notes * Asad Garcia MD - 05/06/2022 10:48 AM CST After informed consent was obtained, the patient was brought into the procedure room. The patient swallowed the encapsulated balloon without stylet assistance. Position in stomach was confirmed by fluoroscopy. Balloon was inflated with 550 ml of fluid. Position was again confirmed by fluoroscopy. The inflation catheter was removed. The patient tolerated the procedure well and was discharged home. Estimated blood loss none. No immediate complications evident. ER HELPER documented in this encounter Plan of Treatment Not on file documented as of this encounter Procedures Procedure Name Priority Date/Time Associated Diagnosis Comments RAD S AND I FLUOROSCOPY < 1 HOUR 05/06/2022 10:00 AM TINNER HELPER Research study patient NASOGASTRIC TUBE PLACEMENT 05/06/2022 10:00 AM TINNER HELPER Research study patient documented in this encounter Visit Diagnoses Diagnosis Research study patient- Primary Research study patient documented in this encounter Admitting Diagnoses Diagnosis Research study patient documented in this encounter Discontinued Medications Medication Sig Discontinue Reason Start Date End Da te estrogens-methylTESTOS TERone (EEMT,COVARYX) 0.625-1.25 mg per tablet Take by mouth Dose adjustment 04/13/2018 05/06/2022 fluticasone propionate (FLONASE) 50 mcg/actuation nasal spray Administer 2 sprays into affected nostril(s) daily Dose adjustment 11/09/2018 05/06/2022 documented as of this encounter Historical Medications * This list may reflect changes made after this encounter. fluticasone propionate (FLONASE) 50 mcg/actuation nasal spray Administer 1 spray into affected nostril(s) daily 10/22/2015 estrogens-methyl TESTOSTERone (EEMT,COVARYX) 1.25-2.5 mg per tablet 03/21/2022 added in this encounter Orders Discharge Count Last Ordered Date First Orde red Date DISCHARGE PATIENT 1 05/06/2022 documented in this encounter Care Teams Wood Casket Assembler Relationship Specialty Start Date End Date Melonie Ochoa MD PCP - General 01/30/18 04/07/23 documented as of this encounter
--- OUTSIDE RECORDS SUMMARY | 2024-04-11 00:53 | XMS_ITS | Encounter Summary ---
Author Organization [facility] Healthcare Address [address] [place] [address] Care Team Providers Care Mascara Molder Name Role Phone Melonie Ochoa MD Primary Care Provider [phone] Reason for Visit * Auth/Cert (Routine) Specialty Diagnoses / Procedures Referred By Yanni t Referred To Contact Diagnoses Research study patient Research study patient [Z00.6] Procedures PA NASO/YESY-GASTRIC TUBE PLMT REQ PHYS&FLUOR GDNCE NASOGASTRIC TUBE PLACEMENT Referral ID Status Reason Start Date Expiration Date Visits Re quested Visits Authorized [id number] 1 1 Encounter Details Date Type Department Care Team (Late st Contact Info) Description 10/20/2022 10:30 AM CDT - 10/20/2022 11:00 AM CDT Surgery [facility] [address] [place] [address] Waqar Santiago MD [address] [facility] [address] [place] [address] NASOGASTRIC TUBE PLACEMENT Surgery Details Date/Time Status Location OR Service Patient Class Case Class Case Type Trauma Case? 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 smoothies, blended [...] nausea continues beyond 3 days, please contact Jenny/Norma or Crispin Pinto. Contact info If you have any questions, feel free to email us: [email or web address] -For urgent concerns after hours call [phone], and ask for the GI fellow it service continuity supervisor. Inform them of the doctor who placed [...] -600 unit tablet Take by mouth. Yes ProviderBrian MD cetirizine (ZyrTEC) 10 mg tablet Take 1 tablet (10 mg total) by mouth daily 03/24/12 Yes ProviderBrian MD estrogens-methylTESTOSTERone (EEMT,COVARYX) 1.25-2.5 mg per tablet 03/21/22 Yes ProviderBrian MD fluticasone propionate (FLONASE) 50 mcg/actuation nasal spray Administer 1 spray into affected nostril(s) daily 10/22/15 Yes ProviderBrian MD omeprazole (PriLOSEC) 40 mg capsule Take 1 capsule (40 mg total) by mouth daily before breakfast 10/06/22 10/06/23 Yes Jenny Schreiber NP hyoscyamine (LEVSIN) 0.125 mg tablet Take 1 tablet (0.125 mg total) by mouth every 4 (four) hours as needed for cramping for up to 14 days Take for 3-7 days following balloon swallow. 10/06/22 10/20/22Maday, Jenny Latesha, VIDEO GAME TECHNICIAN ondansetron ODT (ZOFRAN-ODT) 8 mg disintegrating tablet Take 1 tablet (8 mg total) by mouth every 8(eight) hours for 20 days Take for 3-7 days, following capsule swallow 10/06/22 10/26/22 Jenny Schreiber NP propranoloL (INDERAL) 10 mg tablet TAKE 1 TABLET BY MOUTH THREE TIMES A DAY NEEDED FOR ANXIETY 12/24/20 Provider, MD Brian Review of Systems A [...] Female Attending MD: Waqar Santiago M.D. Room: [facility] ENDOSCOPY ROOM 6 Note Status: Finalized Procedure: Non-endoscopic Tube Procedure Indications: Allurion Balloon Swallow for Audacity Study IRB #[id number] Referring MD: Waqar Santiago M.D. Providers: Waqar [...] hours: Please email Jenny Schreiber NP at [email or web address], . Crispin Pinto RN, preparation center coordinator, [email or web address] [phone] -For urgent concerns after hours call [phone], and ask for the GI fellow it service continuity supervisor.?Inform them of the DrJeanmarie who placed you balloon. Electronically signed by Waqar Santiago MD Waqar Santiago M.D. 10/20/2022 11:24:07 AM . Number of Addenda: 0 Note Initiated On: 10/20/2022 11:22 AM Recognized by the [employer] for promoting quality [...] Female Attending MD: Waqar Santiago M.D. Room: [facility] ENDOSCOPY ROOM 6 Note Status: Finalized Procedure: Non-endoscopic Tube Procedure Indications: Allurion Balloon Swallow for Audacity Study IRB #[id number] Referring MD: Waqar Santiago M.D. Providers: Waqar [...] hours: Please email Jenny Schreiber NP at [email or web address], . Crispin Pinto RN, preparation center coordinator, [email or web address] [phone] -For urgent concerns after hours call [phone], and ask for the GI fellow it service continuity supervisor.? ? ?Inform them ofthe who placed you balloon. Electronically signed by Waqar Santiago MD Waqar Santiago M.D. 10/20/2022 11:24:07 AM . Number of Addenda: 0 Note Initiated On: 10/20/2022 11:22 AM Recognized by the [employer] for promoting quality in endoscopy us Waqar Santiago MD ENDOSCOPY PROCEDUR ES Final Result documented in this encounter Visit Diagnoses Diagnosis Research study patient- Primary Research study patient documented in this encounter Admitting Diagnoses Diagnosis Research study patient documented in this encounter Orders Discharge Count Last Ordered Date First Orde red Date DISCHARGE PATIENT 1 10/20/2022 documented in this encounter Care Teams Mascara Molder Relationship Specialty Start Date End Date Melonie Ochoa MD PCP - General 01/30/18 04/07/23 documented as of this encounter
--- OUTSIDE RECORDS SUMMARY | 2024-04-11 00:53 | XMS_ITS | Encounter Summary ---
Author Organization [facility] Healthcare Address [address] [place] [address] Care Team Providers Care Videogame Designer Name Role Phone Melonie Ochoa MD Primary Care Provider [phone] Reason for Referral * Diagnostic Imaging (Routine) - Closed Specialty Diagnoses / Procedures Referred By Contac t Referred To Contact Diagnoses Research study patient Procedures US Abdomen Limited US Abdomen Complete Jenny Schreiber NP [address] [address] Phone: tel: fax: [address] [phone] Referral ID Status Reason Start Date Expiration Date Visits Re quested Visits Authorized [id number] Closed 10/21/2022 11/20/2023 1 1 Reason for Visit * Diagnostic Imaging (Routine) - Closed Specialty Diagnoses / Procedures Referred By Contac t Referred To Contact Diagnoses Research study patient Procedures US Abdomen Limited US Abdomen Complete Jenny Schreiber NP [address] [address] Phone: tel: fax: [address] [address] Referral ID Status Reason Start Date Expiration Date Visits Re quested Visits Authorized [id number] Closed 10/21/2022 11/20/2023 1 1 Encounter Details Date Type Department Care Team (Latest Contact Info) Description 02/11/2023 6:43 AM CDT - 02/11/2023 11:59 PM CDT Hospital Encounter 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 Electronically signed by: Bird Easley M.D. Narrative 02/11/2023 7:49 AM CDT EXAMINATION: US ABDOMEN LIMITED HISTORY: 42-year-old woman with intragastric balloon. ??This is a research study. COMPARISON: Ultrasound dated 01/07/2023 FINDINGS: The intragastric balloon is no longer visualized. Procedure Note Bird Easley MD - 02/11/2023 EXAMINATION: US ABDOMEN LIMITED HISTORY: 42-year-old woman with intragastric balloon. This is a research study. COMPARISON: Ultrasound dated 01/07/2023 FINDINGS: The intragastric balloon is no longer visualized. IMPRESSION: Intragastric balloon no longer present. Electronically signed by: Bird Easley M.D. us Jenny Schreiber EXHIBIT PREPARATOR IMG US PROCEDURES Final Res ult documented in this encounter Visit Diagnoses Diagnosis Research study patient documented in this encounter Care Teams Videogame Designer Relationship Specialty Start Date End Date Melonie Ochoa MD PCP - General 01/30/18 04/07/23 documented as of this encounter
--- OUTSIDE RECORDS SUMMARY | 2024-04-11 00:53 | XMS_ITS | Encounter Summary ---
Author Organization [facility] Healthcare Address [address] [place] [address] Care Team Providers Care Product Applications Engineer Name Role Phone Melonie Ochoa MD Primary Care Provider [phone] Reason for Referral * Diagnostic Imaging (Routine) - Closed Specialty Diagnoses / Procedures Referred By Contac t Referred To Contact Diagnoses Research study patient Procedures US Abdomen Limited US Abdomen Complete Jenny Schreiber NP [address] [address] Phone: tel: fax: [address] [phone] Referral ID Status Reason Start Date Expiration Date Visits Re quested Visits Authorized [id number] Closed 05/12/2022 06/11/2023 1 1 Reason for Visit * Diagnostic Imaging (Routine) - Closed Specialty Diagnoses / Procedures Referred By Contac t Referred To Contact Diagnoses Research study patient Procedures US Abdomen Limited US Abdomen Complete Jenny Schreiber NP [address] [address] Phone: tel: fax: [address] [phone] Referral ID Status Reason Start Date Expiration Date Visits Re quested Visits Authorized [id number] Closed 05/12/2022 06/11/2023 1 1 Encounter Details Date Type Department Care Team (Latest Contact Info) Description 08/20/2022 7:05 AM CDT - 08/20/2022 11:59 PM CDT Hospital Encounter [facility] [address] [place] [id number] Research study patient Discharge Disposition: Discharge to [...] on file Legal Sex Female 12:45 AM STAFFING MGR Gender Identity Female 03/17/2022 5:30 PM STAFFING MGR Sexual Orientation Not on file documented as [...] LIMITED Schedule Routine, Read Routine (OP Routine) 08/20/2022 7:16 AM CDT Research study patient documented in this encounter Results * US Abdomen Limited (08/20/2022 7:16 AM [...] above. Electronically signed by: Helen Walker M.D. Jenny Schreiber VISUAL PRESENTATION MANAGER IMG US PROCEDURES Final Res ult documented in this encounter Visit Diagnoses Diagnosis Research study patient documented in this encounter Care Teams Product Applications Engineer Relationship Specialty Start Date End Date Melonie Ochoa MD PCP - General 01/30/18 04/07/23 documented as of this encounter
--- OUTSIDE RECORDS SUMMARY | 2024-04-11 00:53 | XMS_ITS | Encounter Summary ---
Author Organization [facility] Healthcare Address [address] [place] [address] Care Team Providers Care Stem Shaper Name Role Phone Melonie Ochoa MD Primary Care Provider [phone] Reason for Visit * Auth/Cert Specialty Diagnoses / Procedures Referred By Yanni t Referred To Contact Diagnoses Research study patient Research study patient [Z00.6] Procedures [place] NASO/YESY-GASTRIC TUBE PLMT REQ PHYS&FLUOR GDNCE NASOGASTRIC TUBE PLACEMENT Referral ID Status Reason Start Date Expiration Date Visits Re quested Visits Authorized [id number] 1 1 Encounter Details Date Type Department Care Team (Latest Contact Info) Description 05/06/2022 8:38 AM COUNSEL - 05/06/2022 10:53 AM COUNSEL Hospital Encounter [facility] [address] [facility] [address] [place] [address] Asad Garcia MD [address] [place] [address] Discharge Disposition: Discharge to home or self [...] on file Legal Sex Female 12:45 AM COUNSEL Gender Identity Female 03/17/2022 5:30 PM COUNSEL Sexual Orientation Not on file documented as of this encounter Last Filed Vital Signs Vital Sign Reading Time Taken Comments Blood Pressure 119/67 05/06/2022 8:59 AM COUNSEL Pulse 67 05/06/2022 8:59 AM COUNSEL Temperature 36 ??C (96.8 ??F) 05/06/2022 8:59 AM COUNSEL Respiratory Rate 16 05/06/2022 8:59 AM COUNSEL Oxygen Saturation 100% 05/06/2022 8:59 AM COUNSEL Inhaled Oxygen Concentration - - Weight 106.1 kg (234 lb) 05/06/2022 8:59 AM COUNSEL Height 167.6 cm (5' 6 ) 05/06/2022 8:59 AM COUNSEL Body Mass Index 37.77 05/06/2022 8:59 AM COUNSEL documented in this encounter Discharge Instructions * Discharge Instructions* Jenny Jiang RN - 05/06/2022 9:07 AM COUNSEL Audacity Balloon Swallow Discharge Instructions Medications: -Akynzeo [...] continues beyond 3 days, please contact Jenny Schrebier or Crispin Pinto. Contact info -Regular business hours: Please email Jenny Schreiber NP at [email or web address], . Crispin Pinto RN, hygiene coordinator, [email or web address] [phone] -For urgent concerns after hours call [phone], and ask for the GI fellow electron beam machine welder setter. Inform them of the DrJeanmarie who placed you balloon. SEL documented in this encounter Medications at Time [...] days before Day 0 04/25/22 04/25/23 Jenny Schreiber, [place] estrogens-methylTESTOSTERone (EEMT,COVARYX) 0.625-1.25 mg per tablet Take by mouth 04/13/18 05/06/22 ProviderBrian MD fluticasone propionate (FLONASE) 50 mcg/actuation nasal spray Administer 2 sprays into affected nostril(s) daily 11/09/18 05/06/22 ProviderBrian MD Review of Systems A pertinent, focused [...] planned procedure for the reasons stated above. SEL documented in this encounter Procedure Notes * [...] blood loss none. No immediate complications evident. SEL documented in this encounter Plan of Treatment Not on file documented as of this encounter Procedures Procedure Name Priority Date/Time Associated Diagnosis Comments RAD S AND I FLUOROSCOPY < 1 HOUR 05/06/2022 10:00 AM COUNSEL Research study patient NASOGASTRIC TUBE PLACEMENT 05/06/2022 10:00 AM COUNSEL Research study patient documented in this encounter [...] 05/06/2022 documented in this encounter Care Teams Stem Shaper Relationship Specialty Start Date End Date Melonie Ochoa MD PCP - General 01/30/18 04/07/23 documented as of this encounter
--- OUTSIDE RECORDS SUMMARY | 2024-04-11 00:53 | XMS_ITS | Encounter Summary ---
Author Organization [facility] Address [address] [place] [address] Phone Care Team Providers Care Institution Librarian Name Role Phone Melonie cOhoa MD Primary Care Provider [phone] Encounter Details Date Type Department Care Team (Late st Contact Info) Description 01/28/2023 8:30 AM CDT Office Visit [facility] Gastroenterology [address] [facility] 12[address] [place] [address] [place] [address] Waqar Santiago MD [address] [place] [address] Research study patient (Primary Dx) [...] on file Legal Sex Female 12: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 Next visit scheduled Vitals Wt 101 kg (222 lb 9.6 oz) BMI 35.93 kg/m?? documented in this encounter Plan of Treatment Not on file documented as of this encounter Visit Diagnoses Diagnosis Research study patient- Primary documented in this encounter Care Teams Institution Librarian Relationship Specialty Start Date End Date Melonie Ochoa MD PCP - General 01/30/18 04/07/23 documented as of this encounter
--- OUTSIDE RECORDS SUMMARY | 2024-04-11 00:53 | XMS_ITS | Encounter Summary ---
Author Organization [facility] Address [address] [place] [address] Phone Care Team Providers Care Joy Operator Helper Name Role Phone Melonie Ochoa MD Primary Care Provider Encounter Details Date Type Department Care Team (Late st Contact Info) Description 01/07/2023 8:30 AM CDT Office Visit [facility] Gastroenterology [address] [facility] [address] [place] [address] [place] [address] Waqar Santiago MD [address] [place] [address] Research study patient (Primary Dx) [...] on file Legal Sex Female 12:45 AM UPHOLSTERY TRIMMER Gender Identity Female 03/17/2022 5:30 PM UPHOLSTERY TRIMMER Sexual Orientation Not on file documented as of this encounter Last Filed Vital Signs Vital Sign Reading Time Taken Comments Blood Pressure - - Pulse - - Temperature - - Respiratory Rate - - Oxygen Saturation - - Inhaled Oxygen Concentration - - Weight 100.2 kg (221 lb) 01/08/2023 8:33 AM CDT Height - - Body Mass Index 35.67 06/04/2022 8:30 AM UPHOLSTERY TRIMMER documented in this encounter Progress Notes * Crispin Pinto, RN - 01/07/2023 8:30 AM CDT Audacity week 36 visit Patient is doing well. Next visit scheduled Vitals Wt 100.2 kg (221 lb) BMI 35.67 kg/m?? documented in this encounter Plan of Treatment Not on file documented as of this encounter Visit Diagnoses Diagnosis Research study patient- Primary documented in this encounter Care Teams Joy Operator Helper Relationship Specialty Start Date End Date Melonie Ochoa MD PCP - General 01/30/18 04/07/23 documented as of this encounter
--- OUTSIDE RECORDS SUMMARY | 2024-04-11 00:53 | XMS_ITS | Encounter Summary ---
Author Organization [facility] Healthcare Address [address] [place] [address] Care Team Providers Care Litigation Associate Name Role Phone Melonie Ochoa MD Primary Care Provider [phone] Reason for Referral * Diagnostic Imaging (Routine) - Closed Specialty Diagnoses / Procedures Referred By Contac t Referred To Contact Diagnoses Research study patient Procedures US Abdomen Limited US Abdomen Complete Jenny Schreiber NP [address] [address] Phone: tel: fax: [address] [address] Referral ID Status Reason Start Date Expiration Date Visits Re quested Visits Authorized [id number] Closed 10/21/2022 11/20/2023 1 1 Reason for Visit * Diagnostic Imaging (Routine) - Closed Specialty Diagnoses / Procedures Referred By Contac t Referred To Contact Diagnoses Research study patient Procedures US Abdomen Limited US Abdomen Complete Jenny Schreiber NP [address] [address] Phone: tel: fax: [address] [address] Referral ID Status Reason Start Date Expiration Date Visits Re quested Visits Authorized [id number] Closed 10/21/2022 11/20/2023 1 1 Encounter Details Date Type Department Care Team (Latest Contact Info) Description 01/07/2023 6:41 AM CDT - 01/07/2023 11:59 PM CDT Hospital Encounter [facility] [address] [place] [id number] Research study patient Discharge Disposition: Discharge to [...] on file Legal Sex Female 12:45 AM SPEED BELT SANDER TENDER Gender Identity Female 03/17/2022 5:30 PM SPEED BELT SANDER TENDER Sexual Orientation Not on file documented [...] LIMITED Schedule Routine, Read Routine (OP Routine) 01/07/2023 7:27 AM CDT Research study patient documented in this encounter Results * US Abdomen Limited (01/07/2023 7:27 AM CDT) Anatomical Region Laterality Modality Abdomen N/A Ultrasound 01/07/2023 8:06 AM CDT Impressions 01/07/2023 8:22 AM CDT Intragastric balloon as described above with decreased volume compared to the prior sonogram. Dictated by: Estefany Salcedo PA-C The radiology attending physician has personally reviewed this study, and had reviewed and/or edited this written report and agrees with it. Electronically signed by: Bird Easley M.D. Narrative 01/07/2023 8:22 AM CDT EXAMINATION: LIMITED ABDOMINAL SONOGRAM HISTORY: 42-year-old female with intragastric balloon. ??This is a research study. COMPARISON: Sonogram dated 12/17/2022. FINDINGS: There is a fluid-filled balloon in the left upper quadrant that measures 9.0 x 7.3 x 10.1 cm with an estimated volume of 348 mL (previously 736 mL). Procedure Note Bird Easley MD - 01/07/2023 EXAMINATION: LIMITED ABDOMINAL SONOGRAM HISTORY: 42-year-old female with intragastric balloon. This is a research study. COMPARISON: Sonogram dated 12/17/2022. FINDINGS: There is a fluid-filled balloon in the left upper quadrant that measures 9.0 x 7.3 x 10.1 cm with an estimated volume of 348 mL (previously 736 mL). IMPRESSION: Intragastric balloon as described above with decreased volume compared to the prior sonogram. Dictated by: Estefany Salcedo PA-C The radiology attending physician has personally reviewed this study, and had reviewed and/or edited this written report and agrees with it. Electronically signed by: Bird Easley M.D. us Jenny Schreiber TEACHING DIETITIAN IMG US PROCEDURES Final Res ult documented in this encounter Visit Diagnoses Diagnosis Research study patient documented in this encounter Care Teams Litigation Associate Relationship Specialty Start Date End Date Melonie Ochoa MD PCP - General 01/30/18 04/07/23 documented as of this encounter
--- OUTSIDE RECORDS SUMMARY | 2024-04-11 00:53 | XMS_ITS | Encounter Summary ---
Author Organization [facility] Address [address] [place] [address] Phone Care Team Providers Care Party Demonstrator Name Role Phone Melonie Ochoa MD Primary Care Provider [phone] Encounter Details Date Type Department Care Team (Late st Contact Info) Description 10/06/2022 Orders Only [facility] Gastroenterology [address] [place] [address] Medical Office Building [address], [address] [place] [address] Jenny Schreiber, [place] [address] [place] [address] Research study patient (Primary Dx) [...] on file Legal Sex Female 12:45 AM FLOW SPECIALIST Gender Identity Female 03/17/2022 5:30 PM FLOW SPECIALIST Sexual Orientation Not on file documented as of this encounter Ordered Prescriptions Prescription Sig Dispense Quantity Refills Last Filled Start Date End Date omeprazole (PriLOSEC) 40 mg capsuleIndications:T reatment of Non-Bleeding Gastric Disorder Take 1 capsule (40 mg total) by mouth daily before breakfast 90 capsule 3 10/06/2022 hyoscyamine (LEVSIN) 0.125 mg tabletIndications:Ur inary Incontinence Take 1 tablet (0.125 mg total) by mouth every 4 (four) hours as needed for cramping for up to 14 days Take for 3-7 days following balloon swallow. 42 tablet 1 10/06/2022 ondansetron ODT (ZOFRAN-ODT) 8 mg disintegrating tabletIndications:Pr evention of Post-Operative Nausea and Vomiting Take 1 tablet (8 mg total) by mouth every 8 (eight) hours for 20 days Take for 3-7 days, following capsule swallow 30 tablet 1 10/06/2022 3 netupitant-palonoset aurora (Akynzeo, netupitant,) 300-0.5 mg capsuleIndications:R esearch study patient Take 1 capsule by mouth once for 1 dose 2 hours prior to balloon swallow 1 capsule 1 10/06/2022 3 documented in this encounter Progress Notes * Jenny Schreiber, [place]RA[place] - 10/06/2022 1:27 PM CDT New Medications Ordered This Visit netupitant-palonosetron (Akynzeo, netupitant,) 300-0.5 mg capsule Sig: Take 1 capsule by mouth once for 1 dose 2 hours prior to balloon swallow Dispense: 1 capsule Refill: 1 BILL TO IRB study# [id number]. hyoscyamine (LEVSIN) 0.125 mg tablet Sig: Take 1 tablet (0.125 mg total) by mouth every 4 (four) hours as needed for cramping for up to 14 days Take for 3-7 days following balloon swallow. Dispense: 42 tablet Refill: 1 BILL TO IRB study# [id number]. omeprazole (PriLOSEC) 40 mg capsule Sig: Take 1 capsule (40 mg total) by mouth daily before breakfast Dispense: 90 capsule Refill: 3 BILL TO IRB study# [id number]. ondansetron ODT (ZOFRAN-ODT) 8 mg disintegrating tablet Sig: Take 1 tablet (8 mg total) by mouth every 8 (eight) hours for 20 days Take for 3-7 days, following capsule swallow Dispense: 30 tablet Refill: 1 BILL TO IRB study# [id number]. documented in this encounter Plan of Treatment Not on file documented as of this encounter Visit Diagnoses Diagnosis Research study patient- Primary documented in this encounter Discontinued Medications Medication Sig Discontinue Reason Start Date End Da te hyoscyamine (LEVSIN) 0.125 mg tabletIndications:Urinar y Incontinence Take 1 tablet (0.125 mg total) by mouth every 4 (four) hours as needed for cramping for up to 7 days Take for 3-7 days following balloon swallow. 04/25/2022 10/06/2022 omeprazole (PriLOSEC) 40 mg capsuleIndications:Treat ment of Non-Bleeding Gastric Disorder Take 1 capsule (40 mg total) by mouth daily before breakfast Start 7 days before Day 0 04/25/2022 10/06/2022 FLUoxetine (PROzac) 20 mg capsule Take 1 tablet by mouth daily 11/11/2020 10/06/2022 documented as of this encounter Orders Case Request Count Last Ordered Date First Orde red Date CASE REQUEST GI 1 10/06/2022 documented in this encounter Care Teams Party Demonstrator Relationship Specialty Start Date End Date Melonie Ochoa MD PCP - General 01/30/18 04/07/23 documented as of this encounter
--- OUTSIDE RECORDS SUMMARY | 2024-04-11 00:53 | XMS_ITS | Encounter Summary ---
Author Organization [facility] Address [address] [place] [address] Phone Care Team Providers Care Disease Case Manager Name Role Phone Melonie Ochoa MD Primary Care Provider Encounter Details Date Type Department Care Team (Late st Contact Info) Description 05/08/2022 Orders Only [facility] Gastroenterology [address] [facility] 12th [place] [address] [place] [address] Jenny Schreiber NP [address] [place] [address] Social History Tobacco Use Types Packs/Day Years [...] on file Legal Sex Female 12:45 AM 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 LOPMENTAL EDUCATION INSTRUCTOR documented in this encounter Plan of Treatment Not on file documented as of this encounter Visit Diagnoses Not on filedocumented in this encounter Care Teams Disease Case Manager Relationship Specialty Start Date End Date Melonie Ochoa MD PCP - General 01/30/18 04/07/23 documented as of this encounter
--- OUTSIDE RECORDS SUMMARY | 2024-04-11 00:53 | XMS_ITS | Encounter Summary ---
Author Organization [facility] Address [address] [place] [address] Phone Care Team Providers Care Passenger Booking Clerk Name Role Phone Melonie Ochoa MD Primary Care Provider Encounter Details Date Type Department Care Team (Late st Contact Info) Description 12/22/2022 1:15 PM CDT Office Visit [facility] Gastroenterology [address] [facility] 12th [place] [address] [place] [address] Waqar Santiago MD [address] [place] [address] Research study patient (Primary Dx) [...] on file Legal Sex Female 12:45 AM SPORTS MANAGEMENT INTERNSHIP Gender Identity Female 03/17/2022 5:30 PM SPORTS MANAGEMENT INTERNSHIP Sexual Orientation Not on file documented as of this encounter Last Filed Vital Signs Vital Sign Reading Time Taken Comments Blood Pressure - - Pulse - - Temperature - - Respiratory Rate - - Oxygen Saturation - - Inhaled Oxygen Concentration - - Weight 100.3 kg (221 lb 3.2 oz) 12/23/2022 9:03 AM CDT Height - - Body Mass Index 35.7 06/04/2022 8:30 AM SPORTS MANAGEMENT INTERNSHIP documented in this encounter Patient Instructions * Patient Instructions* Crispin Pinot RN - 12/22/2022 1:15 PM CDT Audacity week 32 visit Patient is doing well. Next visit scheduled Vitals Wt 100.3 kg (221 lb 3.2 oz) BMI 35.70 kg/m?? documented in this encounter Progress Notes * Crispin Pinto RN - 12/22/2022 1:15 PM CDT [facility] week 32 visit Patient is doing well. Next visit scheduled Vitals Wt 100.3 kg (221 lb 3.2 oz) BMI 35.70 kg/m?? documented in this encounter Plan of Treatment Not on file documented as of this encounter Visit Diagnoses Diagnosis Research study patient- Primary documented in this encounter Care Teams Passenger Booking Clerk Relationship Specialty Start Date End Date Melonie Ochoa MD PCP - General 01/30/18 04/07/23 documented as of this encounter
--- OUTSIDE RECORDS SUMMARY | 2024-04-11 00:53 | XMS_ITS | Encounter Summary ---
Author Organization [facility] Address [address] [place] [address] Phone Care Team Providers Care Director Independent Name Role Phone Melonie Ochoa MD Primary Care Provider [phone] Encounter Details Date Type Department Care Team (Late st Contact Info) Description 10/27/2022 2:15 PM CDT Office Visit [facility] Gastroenterology [address] [facility] 12th [place] [address] [place] [address] Waqar Santiago MD [address] [place] [address] Research study patient Social History Tobacco Use [...] on file Legal Sex Female 12:45 AM CULTURE MEDIA LABORATORY ASSISTANT Gender Identity Female 03/17/2022 5:30 PM CULTURE MEDIA LABORATORY ASSISTANT Sexual Orientation Not on file documented as of this encounter Last Filed Vital Signs Vital Sign Reading Time Taken Comments Blood Pressure 128/84 10/27/2022 2:29 PM CDT Pulse 74 10/27/2022 2:29 PM CDT Temperature 36.5 ??C (97.7 ??F) 10/27/2022 2:29 PM CD T Respiratory Rate - - Oxygen Saturation - - Inhaled Oxygen Concentration - - Weight 97.2 kg (214 lb 3.2 oz) 10/27/2022 2:29 P M CDT Height - - Body Mass Index 34.57 06/04/2022 8:30 AM CULTURE MEDIA LABORATORY ASSISTANT documented in this encounter Ordered Prescriptions Prescription Sig Dispense Quantity Refills Last Filled Start Date End Date famotidine (PEPCID) 40 mg tabletIndications:Re search study patient Take 1 tablet (40 mg total) by mouth daily 30 tablet 2 10/27/2022 ondansetron ODT (ZOFRAN-ODT) 8 mg disintegrating tabletIndications:Pr evention of Post-Operative Nausea and Vomiting Take 1 tablet (8 mg total) by mouth every 8 (eight) hours for 20 days Take for 3-7 days, following capsule swallow 30 tablet 1 10/27/2022 3 documented in this encounter Progress Notes * Jenny Schreiber, CONCRETE LABORER - 10/27/2022 2:15 PM CDT Audacity week 25 visit Patient reports she is doing much better today compared to yesterday and the day before, energy is coming back. She had been really struggling with tolerating fluids due to gastric reflux and nausea. [place] like balloon was sitting up really high No vomiting since 10/21/2022. Today she is able to tolerate liquids and doesn't feel dizzy upon standing like she did 2 days ago.She hasn't had a BM for 5 days. She does report flatulence and feels gurgling noise. No abdominal pain, no blood in stool or emesis. We discussed going to the ED vs rehydrating at home. She stated that she feels so much better than she had and does not feel she needs to go to the ED. Plan: We discussed the plan to increase fluids with electrolytes such as drip drop and liquid IV, and protein drinks/soups. Sipping 1-2 oz every 15-30mins, setting a timer. Ok to continue ondansetron q8 for nausea. Miralax for constipation. Increase PPI to BID, add famotidine 40mg daily for the reflux. Ok to also take an antacid if needed. We dicussed touching base tomorrow morning with an update on her status. If she starts to experience vomiting, abdominal pain we will advise to go to ED and or order imaging and labs. Physical Exam Constitutional: Appearance: Normal appearance. Cardiovascular: Rate and Rhythm: Normal rate and regular rhythm. Pulmonary: Effort: Pulmonary effort is normal. Abdominal: General: Abdomen is flat. Bowel sounds are normal. Palpations: Abdomen is soft. Skin: General: Skin is dry. Neurological: Mental Status: She is alert and oriented to person, place, and time. Psychiatric: Mood and Affect: Mood normal. Behavior: Behavior normal. Thought Content: Thought content normal. Judgment: Judgment normal. Vitals BP 128/84 Pulse 74 Temp 36.5 ??C (97.7 ??F) Wt 97.2 kg (214 lb 3.2 oz) BMI 34.57 kg/m?? documented in this encounter Plan of Treatment Not on file documented as of this encounter Visit Diagnoses Diagnosis Research study patient documented in this encounter Discontinued Medications Medication Sig Discontinue Reason Start Date End Da te ondansetron ODT (ZOFRAN-ODT) 8 mg disintegrating tabletIndications:Prevent ion of Post-Operative Nausea and Vomiting Take 1 tablet (8 mg total) by mouth every 8 (eight) hours for 20 days Take for 3-7 days, following capsule swallow Reorder 10/06/2022 10/27/2022 documented as of this encounter Care Teams Director Independent Relationship Specialty Start Date End Date Melonie Ochoa MD PCP - General 01/30/18 04/07/23 documented as of this encounter
--- OUTSIDE RECORDS SUMMARY | 2024-04-11 00:53 | XMS_ITS | Encounter Summary ---
Author Organization [facility] Address [address] [place] [address] Phone Care Team Providers Care Rn Bariatric Name Role Phone Melonie Ochoa MD Primary Care Provider [phone] Encounter Details Date Type Department Care Team (Late st Contact Info) Description 06/04/2022 8:30 AM SHIP'S CARPENTER Office Visit [facility] Gastroenterology [facility] 12th [place] [address] [place] [address] Waqar Santiago MD [address] [place] [address] Research study patient (Primary Dx) [...] on file Legal Sex Female 12:45 AM SHIP'S CARPENTER Gender Identity Female 03/17/2022 5:30 PM SHIP'S CARPENTER Sexual Orientation Not on file documented as of this encounter Last Filed Vital Signs Vital Sign Reading Time Taken Comments Blood Pressure - - Pulse - - Temperature - - Respiratory Rate - - Oxygen Saturation - - Inhaled Oxygen Concentration - - Weight 102.2 kg (225 lb 3.2 oz) 06/04/2022 8:30 AM SHIP'S CARPENTER Height 167.6 cm (5' 6 ) 06/04/2022 8:30 AM SHIP'S CARPENTER Body Mass Index 36.35 06/04/2022 8:30 AM SHIP'S CARPENTER documented in this encounter Progress Notes * Sandra Hodge - 06/04/2022 8:30 AM CST Audacity week 4 visit Patient is doing well. Next visit scheduled 06/25/2022. Vitals Ht 167.6 cm (5' 6 ) Wt 102.2 kg (225 lb 3.2 oz) BMI 36.35 kg/m?? Wt Readings from Last 10 Encounters: 06/04/22 102.2 kg (225 lb 3.2 oz) 05/12/22 103.9 kg (229 lb) 05/06/22 106.1 kg (234 lb) 05/06/22 106.4 kg (234 lb 9.6 oz) 03/24/22 106.7 kg (235 lb 3.2 oz) 10/07/19 102.5 kg (226 lb) 01/30/18 95.3 kg (210 lb) No orders of the defined types were placed in this encounter. 'S CARPENTER documented in this encounter Plan of Treatment Not on file documented as of this encounter Visit Diagnoses Diagnosis Research study patient- Primary documented in this encounter Care Teams Rn Bariatric Relationship Specialty Start Date End Date Melonie Ochoa MD PCP - General 01/30/18 04/07/23 documented as of this encounter
--- OUTSIDE RECORDS SUMMARY | 2024-04-11 00:53 | XMS_ITS | Encounter Summary ---
Author Organization [facility] Address [address] [place] [address] Phone Care Team Providers Care Hazardous Substances Engineer Name Role Phone Melonie Ochoa MD Primary Care Provider [phone] Reason for Referral * Diagnostic Imaging (Routine) - Closed Specialty Diagnoses / Procedures Referred By Contac t Referred To Contact Diagnoses Research study patient Procedures US Abdomen Limited US Abdomen Complete Jenny Schreiber NP [address] [place] [address] Phone: tel: fax: [address] [address] Referral ID Status Reason Start Date Expiration Date Visits Re quested Visits Authorized [id number] Closed 10/21/2022 11/20/2023 1 1 * Diagnostic Imaging (Routine) - Closed Specialty Diagnoses / Procedures Referred By Contac t Referred To Contact Diagnoses Research study patient Procedures US Abdomen Limited US Abdomen Complete Jenny Schreiber NP [address] [place] [address] Phone: tel: fax: [address] [phone] Referral ID Status Reason Start Date Expiration Date Visits Re quested Visits Authorized [id number] Closed 10/21/2022 11/20/2023 1 1 * Diagnostic Imaging (Routine) - Closed Specialty Diagnoses / Procedures Referred By Yanni weaver Referred To Contact Diagnoses Research study patient Procedures US Abdomen Limited US Abdomen Complete Jenny Schreiber NP [address] [place] [address] Phone: tel: fax: [facility] [address] [place] [address] Referral ID Status Reason Start Date Expiration Date Visits Re quested Visits Authorized [id number] Closed 10/21/2022 11/20/2023 1 1 Encounter Details Date Type Department Care Team (Late st Contact Info) Description 10/20/2022 11:00 AM CDT Office Visit [facility] Gastroenterology [facility] 12th [place] [address] [place] [address] Waqar Santiago MD [address] [place] [address] Research study patient (Primary Dx) Social History [...] on file Legal Sex Female 12:45 AM BOAT OUTFITTER Gender Identity Female 03/17/2022 5:30 PM BOAT OUTFITTER Sexual Orientation Not on file documented as of this encounter Last Filed Vital Signs Vital Sign Reading Time Taken Comments Blood Pressure - - Pulse - - Temperature - - Respiratory Rate - - Oxygen Saturation - - Inhaled Oxygen Concentration - - Weight 100.4 kg (221 lb 6.4 oz) 023 11:00 AM CDT Height - - Body Mass Index 35.73 06/04/2022 8:30 AM BOAT OUTFITTER documented in this encounter Progress Notes * Jenny Schreiber NP - 10/20/2022 11:00 AM CDT Wt 100.4 kg (221 lb 6.4 oz) BMI 35.73 kg/m?? Orders Placed This Encounter Procedures US Abdomen Complete BILL TO IRB study# [id number]. Standing Status: Future Standing Expiration Date: 10/22/2023 Order Specific Question: Clinical question to be answered: Answer: evalute for intragastric balloon(s) Order Specific Question: Where should this order be performed? Answer: [facility] [[id number]] Abdomen Complete BILL TO IRB study# [id number]. Standing Status: Future Standing Expiration Date: 10/22/2023 Order Specific Question: Clinical question to be answered: Answer: evalute for intragastric balloon(s) Order Specific Question: Where should this order be performed? Answer: [facility] [152] Abdomen Complete BILL TO IRB study# [id number]. Standing Status: Future Standing Expiration Date: 10/22/2023 Order Specific Question: Clinical question to be answered: Answer: evalute for intragastric balloon(s) Order Specific Question: Where should this order be performed? Answer: [facility] [152] Abdomen Complete BILL TO IRB study# [id number]. Standing Status: Future Standing Expiration Date: 10/22/2023 Order Specific Question: Clinical question to be answered: Answer: evalute for intragastric balloon(s) Order Specific Question: Where should this order be performed? Answer: [facility] [152] Abdomen Complete BILL TO IRB study# [id number]. Standing Status: Future Standing Expiration Date: 10/22/2023 Order Specific Question: Clinical question to be answered: Answer: evalute for intragastric balloon(s) Order Specific Question: Where should this order be performed? Answer: [facility] [152] US Abdomen Complete BILL TO IRB study# [id number]. Standing Status: Future Standing Expiration Date: 10/22/2023 Order Specific Question: Clinical question to be answered: Answer: evalute for intragastric balloon(s) Order Specific Question: Where should this order be performed? Answer: [facility] [152] US Abdomen Complete BILL TO IRB study# [id number]. Standing Status: Future Standing Expiration Date: 10/22/2023 Order Specific Question: Clinical question to be answered: Answer: evalute for intragastric balloon(s) Order Specific Question: Where should this order be performed? Answer: [facility] [152] US Abdomen Complete BILL TO IRB study# [id number]. Standing Status: Future Standing Expiration Date: 10/22/2023 Order Specific Question: Clinical question to be answered: Answer: evalute for intragastric balloon(s) Order Specific Question: Where should this order be performed? Answer: [facility] [152] documented in this encounter Plan of Treatment [...] by: Bird Easley M.D. us Jenny Schreiber MANAGER CRISIS IMG US PROCEDURES Final Res ult * US Abdomen Limited (01/28/2023 7:15 AM CDT) Anatomical Region Laterality Modality Abdomen N/A Ultrasound 01/28/2023 8:33 AM CDT Impressions 01/28/2023 1:31 PM CDT Intragastric balloon with interval in volume compared to the prior ultrasound. Dictated by: Lloyd Mcintyre MD The radiology attending physician has personally reviewed this study, and had reviewed and/or edited this written report and agrees with it. Electronically signed by: Darwin Baez M.D. Narrative 01/28/2023 1:31 PM CDT EXAMINATION: US ABDOMEN LIMITED HISTORY: 42-year-old woman with intragastric balloon. ??This is a research study. COMPARISON: Ultrasound dated 01/07/2023 FINDINGS: There is a fluid-filled intragastric balloon that measures 10.8 x 8.4 x 9.2 cm with a volume of 436 mL (previously 348 mL). Procedure Note Darwin Baez MD - 01/28/2023 EXAMINATION: US ABDOMEN LIMITED HISTORY: 42-year-old woman with intragastric balloon. This is a research study. COMPARISON: Ultrasound dated 01/07/2023 FINDINGS: There is a fluid-filled intragastric balloon that measures 10.8 x 8.4 x 9.2 cm with a volume of 436 mL (previously 348 mL). IMPRESSION: Intragastric balloon with interval in volume compared to the prior ultrasound. Dictated by: Lloyd Mcintyre MD The radiology attending physician has personally reviewed this study, and had reviewed and/or edited this written report and agrees with it. Electronically signed by: Darwin Baez M.D. us Jenny Schreiber MANAGER CRISIS IMG US PROCEDURES Final Res ult * US Abdomen Limited (01/07/2023 7:27 AM [...] by: Bird Easley M.D. us Jenny Schreiber NP IMG US PROCEDURES Final Res ult documented in this encounter Visit Diagnoses Diagnosis Research study patient- Primary Research study patient Research study patient Research study patient documented in this encounter Care Teams Hazardous Substances Engineer Relationship Specialty Start Date End Date Melonie Ochoa MD PCP - General 01/30/18 04/07/23 documented as of this encounter
--- OUTSIDE RECORDS SUMMARY | 2024-04-11 00:53 | XMS_ITS | Encounter Summary ---
Author Organization [facility] Address [address] [place] [address] Phone Care Team Providers Care Spray Gun Sizer Name Role Phone Melonie Ochoa MD Primary Care Provider [phone] Encounter Details Date Type Department Care Team (Late st Contact Info) Description 08/20/2022 8:30 AM CDT Office Visit [facility] Gastroenterology [address] [facility] 12th [place] [address] [place] [address] Waqar Santiago MD [address] [place] [address] Research study patient (Primary Dx) [...] on file Legal Sex Female 12:45 AM SCREW MACHINE ADJUSTER AUTOMATIC Gender Identity Female 03/17/2022 5:30 PM SCREW MACHINE ADJUSTER AUTOMATIC Sexual Orientation Not on file documented as of this encounter Last Filed Vital Signs Vital Sign Reading Time Taken Comments Blood Pressure - - Pulse - - Temperature - - Respiratory Rate - - Oxygen Saturation - - Inhaled Oxygen Concentration - - Weight 99.8 kg (220 lb) 08/20/2022 8:09 AM CDT Height - - Body Mass Index 35.51 06/04/2022 8:30 AM SCREW MACHINE ADJUSTER AUTOMATIC documented in this encounter Progress Notes * Norma Arevalo NP - 08/20/2022 8:30 AM CDT Audacity week 16 visit Patient is doing well. Next visit scheduled Vitals Wt 99.8 kg (220 lb) BMI 35.51 kg/m?? Wt Readings from Last 10 Encounters: 08/20/22 99.8 kg (220 lb) 08/06/22 99.2 kg (218 lb 12.8 oz) 07/23/22 100.3 kg (221 lb 3.2 oz) 06/25/22 100.7 kg (222 lb) 06/04/22 102.2 kg (225 lb 3.2 oz) 05/12/22 103.9 kg (229 lb) 05/06/22 106.1 kg (234 lb) 05/06/22 106.4 kg (234 lb 9.6 oz) 03/24/22 106.7 kg (235 lb 3.2 oz) 10/07/19 102.5 kg (226 lb) documented in this encounter Plan of Treatment Not on file documented as of this encounter Visit Diagnoses Diagnosis Research study patient- Primary documented in this encounter Discontinued Medications Medication Sig Discontinue Reason Start Date End Da te omeprazole (PriLOSEC) 40 mg capsuleIndications:Cornelia tment of Non-Bleeding Gastric Disorder Take 1 capsule (40 mg total) by mouth daily before breakfast Start 7 days before Day 0 Therapy completed 04/23/2022 08/20/2022 documented as of this encounter Care Teams Spray Gun Sizer Relationship Specialty Start Date End Date Melonie Ochoa MD PCP - General 01/30/18 04/07/23 documented as of this encounter
--- OUTSIDE RECORDS SUMMARY | 2024-04-11 00:53 | XMS_ITS | Encounter Summary ---
Author Organization [facility] Address [address] [place] [address] Phone Care Team Providers Care Wire Annealer Name Role Phone Melonie Ochoa MD Primary Care Provider Encounter Details Date Type Department Care Team (Late st Contact Info) Description 05/06/2022 8:00 AM RN HEMODIALYSIS CHARGE Office Visit [facility] Gastroenterology [address] [facility] 12th [place] [address] [place] [address] Jenny Schreiber NP [address] [place] [address] Research study patient (Primary Dx) Social History [...] on file Legal Sex Female 12:45 AM RN HEMODIALYSIS CHARGE Gender Identity Female 03/17/2022 5:30 PM RN HEMODIALYSIS CHARGE Sexual Orientation Not on file documented as of this encounter Last Filed Vital Signs Vital Sign Reading Time Taken Comments Blood Pressure - - Pulse - - Temperature - - Respiratory Rate - - Oxygen Saturation - - Inhaled Oxygen Concentration - - Weight 106.4 kg (234 lb 9.6 oz) 023 10:59 AM RN HEMODIALYSIS CHARGE Height - - Body Mass Index 37.87 05/06/2022 8:59 AM RN HEMODIALYSIS CHARGE documented in this encounter Progress Notes * Jenny Schreiber NP - 05/06/2022 8:00 AM CST Audacity Day 0 visit Patient is doing well. Next visit scheduled 05/12 Vitals Wt 106.4 kg (234 lb 9.6 oz) BMI 37.87 kg/m?? HEMODIALYSIS CHARGE HEMODIALYSIS CHARGE documented in this encounter Plan of Treatment Not on file documented as of this encounter Visit Diagnoses Diagnosis Research study patient- Primary documented in this encounter Care Teams Wire Annealer Relationship Specialty Start Date End Date Melonie Ochoa MD PCP - General 01/30/18 04/07/23 documented as of this encounter
--- OUTSIDE RECORDS SUMMARY | 2024-04-11 00:53 | XMS_ITS | Encounter Summary ---
Author Organization [facility] Healthcare Address [address] [place] [address] Care Team Providers Care Yarn Dry Room Worker Name Role Phone Melonie Ochoa MD Primary Care Provider [phone] Reason for Referral * Diagnostic Imaging (Routine) - Closed Specialty Diagnoses / Procedures Referred By Contac t Referred To Contact Diagnoses Research study patient Procedures US Abdomen Limited US Abdomen Complete Jenny Schreiber NP [address] [address] Phone: tel: fax: [address] [phone] Referral ID Status Reason Start Date Expiration Date Visits Re quested Visits Authorized [id number] Closed 05/12/2022 06/11/2023 1 1 Reason for Visit * Diagnostic Imaging (Routine) - Closed Specialty Diagnoses / Procedures Referred By Contac t Referred To Contact Diagnoses Research study patient Procedures US Abdomen Limited US Abdomen Complete Jenny Schreiber NP [address] [address] Phone: tel: fax: [address] [phone] Referral ID Status Reason Start Date Expiration Date Visits Re quested Visits Authorized [id number] Closed 05/12/2022 06/11/2023 1 1 Encounter Details Date Type Department Care Team (Latest Contact Info) Description 11/17/2022 12:45 PM CDT - 11/17/2022 11:59 PM CDT Hospital Encounter [facility]) [address] [place] [address] Research study patient Discharge Disposition: Discharge to [...] on file Legal Sex Female 12:45 AM PHARMACY OPERATIONS MANAGER Gender Identity Female 03/17/2022 5:30 PM PHARMACY OPERATIONS MANAGER Sexual Orientation Not on file documented [...] LIMITED Schedule Routine, Read Routine (OP Routine) 11/17/2022 1:14 PM CDT Research study patient documented in this encounter Results * US Abdomen Limited (11/17/2022 1:14 PM [...] it. Electronically signed by: Bird Easley M.D. Jenny Latesha Candie DISEASE EDUCATION SPECIALIST IMG US PROCEDURES Final Res ult documented in this encounter Visit Diagnoses Diagnosis Research study patient documented in this encounter Care Teams Yarn Dry Room Worker Relationship Specialty Start Date End Date Melonie Ochoa MD PCP - General 01/30/18 04/07/23 documented as of this encounter
--- OUTSIDE RECORDS SUMMARY | 2024-04-11 00:53 | XMS_ITS | Encounter Summary ---
Author Organization [facility] Address [address] [place] [address] Phone Care Team Providers Care Va Underwriter Name Role Phone Melonie Ochoa MD Primary Care Provider Encounter Details Date Type Department Care Team (Late st Contact Info) Description 06/25/2022 8:30 AM CDT Office Visit [facility] Gastroenterology [address] [facility] 12th [place] [address] [place] [address] Waqar Santiago MD [address] [place] [address] Research study patient (Primary Dx) [...] on file Legal Sex Female 12:45 AM KITCHEN FOOD SERVER Gender Identity Female 03/17/2022 5:30 PM KITCHEN FOOD SERVER Sexual Orientation Not on file documented as of this encounter Last Filed Vital Signs Vital Sign Reading Time Taken Comments Blood Pressure - - Pulse - - Temperature - - Respiratory Rate - - Oxygen Saturation - - Inhaled Oxygen Concentration - - Weight 100.7 kg (222 lb) 06/25/2022 11:50 AM CDT Height - - Body Mass Index 35.83 06/04/2022 8:30 AM KITCHEN FOOD SERVER documented in this encounter Progress Notes * Anjelica Johnson RN - 06/25/2022 8:30 AM CDT Audacity week 8 visit Patient is doing well. Next visit scheduled 07/23/2022. Vitals Wt 100.7 kg (222 lb) BMI 35.83 kg/m?? Wt Readings from Last 10 Encounters: 06/25/22 100.7 kg (222 lb) 06/04/22 102.2 [...] Primary documented in this encounter Care Teams Va Underwriter Relationship Specialty Start Date End Date Melonie Ochoa MD PCP - General 01/30/18 04/07/23 documented as of this encounter
--- OUTSIDE RECORDS SUMMARY | 2024-04-11 00:53 | XMS_ITS | Encounter Summary ---
Author Organization [facility] Healthcare Address [address] [place] [address] Care Team Providers Care Extermination Inspector Name Role Phone Melonie Ochoa MD Primary Care Provider [phone] Reason for Referral * Diagnostic Imaging (Routine) - Closed Specialty Diagnoses / Procedures Referred By Contac t Referred To Contact Diagnoses Research study patient Procedures US Abdomen Limited US Abdomen Complete Jenny Schreiber NP [address] [address] Phone: tel: fax: [address] [phone] Referral ID Status Reason Start Date Expiration Date Visits Re quested Visits Authorized [id number] Closed 10/21/2022 11/20/2023 1 1 Reason for Visit * Diagnostic Imaging (Routine) - Closed Specialty Diagnoses / Procedures Referred By Contac t Referred To Contact Diagnoses Research study patient Procedures US Abdomen Limited US Abdomen Complete Jenny Schreiber NP [address] [address] Phone: tel: fax: [address] [phone] Referral ID Status Reason Start Date Expiration Date Visits Re quested Visits Authorized [id number] Closed 10/21/2022 11/20/2023 1 1 Encounter Details Date Type Department Care Team (Latest Contact Info) Description 01/28/2023 6:48 AM CDT - 01/28/2023 11:59 PM CDT Hospital Encounter [facility]) [address] [place] [address] Research study patient Discharge Disposition: Discharge to [...] on file Legal Sex Female 12:45 AM GARMENT PARTS CUTTER MACHINE Gender Identity Female 03/17/2022 5:30 PM GARMENT PARTS CUTTER MACHINE Sexual Orientation Not on file documented as [...] LIMITED Schedule Routine, Read Routine (OP Routine) 01/28/2023 7:15 AM CDT Research study patient documented in this encounter Results * US Abdomen Limited (01/28/2023 7:15 AM [...] signed by: Darwin Baez M.D. us Jenny Latesha Candie SECONDARY SPANISH TEACHER IMG US PROCEDURES Final Res ult documented in this encounter Visit Diagnoses Diagnosis Research study patient documented in this encounter Care Teams Extermination Inspector Relationship Specialty Start Date End Date Melonie Ochoa MD PCP - General 01/30/18 04/07/23 documented as of this encounter
--- OUTSIDE RECORDS SUMMARY | 2024-04-11 00:53 | XMS_ITS | Encounter Summary ---
Author Organization [facility] Healthcare Address [address] [place] [address] Care Team Providers Care Etl Manager Name Role Phone Melonie Ochoa MD Primary Care Provider [phone] Reason for Referral * Diagnostic Imaging (Routine) - Closed Specialty Diagnoses / Procedures Referred By Contac t Referred To Contact Diagnoses Research study patient Procedures US Abdomen Limited US Abdomen Complete Jenny Schreiber NP [address] [address] Phone: tel: fax: [address] [phone] Referral ID Status Reason Start Date Expiration Date Visits Re quested Visits Authorized [id number] Closed 05/12/2022 06/11/2023 1 1 Reason for Visit * Diagnostic Imaging (Routine) - Closed Specialty Diagnoses / Procedures Referred By Contac t Referred To Contact Diagnoses Research study patient Procedures US Abdomen Limited US Abdomen Complete Jenny Schreiber NP [address] [address] Phone: tel: fax: [address] [address] Referral ID Status Reason Start Date Expiration Date Visits Re quested Visits Authorized [id number] Closed 05/12/2022 06/11/2023 1 1 Encounter Details Date Type Department Care Team (Latest Contact Info) Description 06/25/2022 7:39 AM CDT - 06/25/2022 11:59 PM CDT Hospital Encounter [facility] [address] [place] [address] Research study patient Discharge Disposition: Discharge to [...] on file Legal Sex Female 12:45 AM HEALTH SAFETY MANAGER Gender Identity Female 03/17/2022 5:30 PM HEALTH SAFETY MANAGER Sexual Orientation Not on file documented [...] LIMITED Schedule Routine, Read Routine (OP Routine) 06/25/2022 8:01 AM CDT Research study patient documented in this encounter Results * US Abdomen Limited (06/25/2022 8:01 AM [...] by: Bird Easley M.D. us Jenny Schreiber BUSINESS CENTER MANAGER IMG US PROCEDURES Final Res ult documented in this encounter Visit Diagnoses Diagnosis Research study patient documented in this encounter Care Teams Etl Manager Relationship Specialty Start Date End Date Melonie Ochoa MD PCP - General 01/30/18 04/07/23 documented as of this encounter
--- OUTSIDE RECORDS SUMMARY | 2024-04-11 00:53 | XMS_ITS | Encounter Summary ---
Author Organization [facility] Address [address] [place] [address] Phone Care Team Providers Care Diesel Lube Tech Name Role Phone Melonie Ochoa MD Primary Care Provider Encounter Details Date Type Department Care Team (Late st Contact Info) Description 08/06/2022 8:30 AM CDT Office Visit [facility] Gastroenterology [address] [facility] 12th [place] [address] [place] [address] Waqar Santiago MD [address] [place] [address] Research study patient (Primary Dx) [...] on file Legal Sex Female 12:45 AM VOLUNTEER SPECIALIST Gender Identity Female 03/17/2022 5:30 PM VOLUNTEER SPECIALIST Sexual Orientation Not on file documented as of this encounter Last Filed Vital Signs Vital Sign Reading Time Taken Comments Blood Pressure - - Pulse - - Temperature - - Respiratory Rate - - Oxygen Saturation - - Inhaled Oxygen Concentration - - Weight 99.2 kg (218 lb 12.8 oz) 023 12:25 PM CDT Height - - Body Mass Index 35.32 06/04/2022 8:30 AM VOLUNTEER SPECIALIST documented in this encounter Progress Notes * Anjelica Johnson RN - 08/06/2022 8:30 AM CDT Audacity week 14 Patient is doing well. Next visit scheduled Week 16 August 20, 2022 @ 8:30am Vitals Wt 99.2 kg (218 lb 12.8 oz) BMI 35.32 kg/m?? Wt Readings from Last 10 Encounters: 08/06/22 99.2 kg (218 lb 12.8 oz) [...] Primary documented in this encounter Care Teams Diesel Lube Tech Relationship Specialty Start Date End Date Melonie Ochoa MD PCP - General 01/30/18 04/07/23 documented as of this encounter
--- OUTSIDE RECORDS SUMMARY | 2024-04-11 00:53 | XMS_ITS | Encounter Summary ---
Author Organization [facility] Address [address] [place] [address] Phone Care Team Providers Care Route Specialist Name Role Phone Melonie Ochoa MD Primary Care Provider Encounter Details Date Type Department Care Team (Late st Contact Info) Description 11/17/2022 1:00 PM CDT Office Visit [facility] Gastroenterology [address] [facility] 12th [place] [address] [place] [address] Waqar Sanitago MD [address] [place] [address] Research study patient (Primary Dx) [...] on file Legal Sex Female 12:45 AM IT TRAINER Gender Identity Female 03/17/2022 5:30 PM IT TRAINER Sexual Orientation Not on file documented as of this encounter Last Filed Vital Signs Vital Sign Reading Time Taken Comments Blood Pressure - - Pulse - - Temperature - - Respiratory Rate - - Oxygen Saturation - - Inhaled Oxygen Concentration - - Weight 97.4 kg (214 lb 12.8 oz) 11/18/2022 1:14 PM CDT Height - - Body Mass Index 34.67 06/04/2022 8:30 AM IT TRAINER documented in this encounter Progress Notes * Crispin Pinto RN - 11/17/2022 1:00 PM CDT Audacity week 28 visit Patient is doing well. Next visit scheduled Vitals Wt 97.4 kg (214 lb 12.8 oz) BMI 34.67 kg/m?? documented in this encounter Plan of Treatment Not on file documented as of this encounter Visit Diagnoses Diagnosis Research study patient- Primary documented in this encounter Care Teams Route Specialist Relationship Specialty Start Date End Date Melonie Ochoa MD PCP - General 01/30/18 04/07/23 documented as of this encounter
--- OUTSIDE RECORDS SUMMARY | 2024-04-11 00:54 | XMS_ITS | Encounter Summary ---
Author Organization [facility] Healthcare Address [address] [place] [address] Care Team Providers Care Poultice Machine Operator Name Role Phone Melonie Ochoa MD Primary Care Provider Reason for Referral * Cardiology (Routine) - Closed Specialty Diagnoses / Procedures Referred By Contac t Referred To Contact Diagnoses Research study patient Procedures ECG 12 lead Jenny Schreiber NP [address] [place] [id number] Phone: tel: fax: [facility] Referral ID Status Reason Start Date Expiration Date Visits Re quested Visits Authorized [id number] Closed 03/24/2022 04/23/2023 1 1 CAN FOOD COOK Reason for Visit * Cardiology (Routine) - Closed Specialty Diagnoses / Procedures Referred By Contac t Referred To Contact Diagnoses Research study patient Procedures ECG 12 lead Jenny Schreiber NP [address] [place] [id number] Phone: tel: fax: [facility] Referral ID Status Reason Start Date Expiration Date Visits Re quested Visits Authorized [id number] Closed 03/24/2022 04/23/2023 1 1 Encounter Details Date Type Department Care Team (Latest Contact Info) Description 03/24/2022 3:15 PM MEXICAN FOOD COOK - 03/24/2022 11:59 PM MEXICAN FOOD COOK Hospital Encounter [facility] [address] [place] [address] Research study patient Discharge Disposition: Discharge to home or self care Social History Tobacco Use Types Packs/Day Years Used Date Smoking Tobacco: Never Smokeless Tobacco: Never Comments No Sex and Gender Information Value Date Recorded Sex Assigned at Not on file Legal Sex Female 12:45 AM MEXICAN FOOD COOK Gender Identity Female 03/17/2022 5:30 PM MEXICAN FOOD COOK Sexual Orientation Not on file documented as of this encounter Medications at Time of Discharge calcium carbonate-vitami n D3 500mg (1,250mg) -600 unit tablet Take by mouth. cetirizine (ZyrTEC) 10 mg tablet Take 1 tablet (10 mg total) by mouth daily 03/24/2012 estrogens-methyl TESTOSTERone (EEMT,COVARYX) 1.25-2.5 mg per tablet 03/21/2022 fluticasone propionate (FLONASE) 50 mcg/actuation nasal spray Administer 1 spray into affected nostril(s) daily 10/22/2015 propranoloL (INDERAL) 10 mg tablet TAKE 1 TABLET BY MOUTH THREE TIMES A DAY NEEDED FOR ANXIETY 12/24/2020 estrogens-methyl TESTOSTERone (EEMT,COVARYX) 0.625-1.25 mg per tablet Take by mouth 04/13/2018 3 FLUoxetine (PROzac) 20 mg capsule Take 1 tablet by mouth daily 11/11/2020 3 fluticasone propionate (FLONASE) 50 mcg/actuation nasal spray Administer 2 sprays into affected nostril(s) daily 11/09/2018 3 documented as of this encounter Discharge Disposition Disposition Code Departure Means Destination Discharge to home or self care documented in this encounter Plan of Treatment Not on file documented as of this encounter Procedures Procedure Name Priority Date/Time Associated Diagnosis Comments ECG 12-LEAD Routine 03/24/2022 3:25 PM MEXICAN FOOD COOK Research study patient documented in this encounter Results * ECG 12 lead (03/24/2022 3:25 PM MEXICAN FOOD COOK) Ventricular Rate EKG/Min 57 BPM [facility] Atrial Rate 57 BPM [facility] GA-Interval (MSEC) 150 ms [facility] QRS-Interval (MSEC) 84 ms [facility] QT-Interval (MSEC) 424 ms [facility] QTc 412 ms [facility] P [place] 46 degrees [facility] R [place] 5 degrees [facility] T [place] -1 degrees [facility] Diagnosis Sinus bradycardia Cannot rule out Anterior infarct , age undetermined Abnormal ECG No previous ECGs available Confirmed by ELVIN ROSAS M.D ([id number]) on 03/26/2022 9:31:03 AM [facility] 03/24/2022 3:25 PM MEXICAN FOOD COOK 03/26/2022 9:31 AM MEXICAN FOOD COOK us Jenny Schreiber POWDER AND PRIMER CANNING LEADER ECG ORDERABLES Final Resul t [facility] documented in this encounter Visit Diagnoses Diagnosis Research study patient documented in this encounter Care Teams Poultice Machine Operator Relationship Specialty Start Date End Date Melonie Ochoa MD PCP - General 01/30/18 04/07/23 documented as of this encounter
--- OUTSIDE RECORDS SUMMARY | 2024-04-11 00:54 | XMS_ITS | Encounter Summary ---
Author Organization [facility] Healthcare Address [address] [place] [address] Care Team Providers Care Marker Hand Name Role Phone Melonie Ochoa MD Primary Care Provider Encounter Details Date Type Department Care Team (Late st Contact Info) Description 11/12/2018 11:00 AM CDT Ancillary Procedure [facility] Outside Films Social History Tobacco Use Types Packs/Day Years Used Date Smoking Tobacco: Never Smokeless Tobacco: Never Comments No Sex and Gender Information Value Date Recorded Sex Assigned at Not on file Legal Sex Female 12:45 AM STATIONARY STEAM ENGINEER Gender Identity Female 03/17/2022 5:30 PM STATIONARY STEAM ENGINEER Sexual Orientation Not on file documented as of this encounter Plan of Treatment Not on file documented as of this encounter Procedures Procedure Name Priority Date/Time Associated Diagnosis Comments BREAST IMAGING OUTSIDE REFERENCE Routine 11/12/2018 11:00 AM CDT documented in this encounter Results * Breast Imaging Outside Reference (11/12/2018 11:00 AM CDT) Narrative [facility] - 10/08/2019 8:03 AM CDT This order has been auto-finalized and does not contain a result. us Not In File Miscellaneous IMG MAMMO PROCEDURES F inal Result [facility] documented in this encounter Visit Diagnoses Not on filedocumented in this encounter Care Teams Marker Hand Relationship Specialty Start Date End Date Melonie Ochoa MD PCP - General 01/30/18 04/07/23 documented as of this encounter
--- OUTSIDE RECORDS SUMMARY | 2024-04-11 00:54 | XMS_ITS | Encounter Summary ---
Author Organization [facility] Healthcare Address [address] [place] [address] Care Team Providers Care Workday Manager Name Role Phone Melonie Ochoa MD Primary Care Provider Encounter Details Date Type Department Care Team (Latest Contact Info) Description 03/30/2022 8:50 PM BOTTLE AND GLASS INSPECTOR - 03/30/2022 11:59 PM BOTTLE AND GLASS INSPECTOR Hospital Encounter [address] [address] Research study patient Discharge Disposition: Discharge to home or self care Social History Tobacco Use Types Packs/Day Years Used Date Smoking Tobacco: Never Smokeless Tobacco: Never Comments No Sex and Gender Information Value Date Recorded Sex Assigned at Not on file Legal Sex Female 12:45 AM BOTTLE AND GLASS INSPECTOR Gender Identity Female 03/17/2022 5:30 PM BOTTLE AND GLASS INSPECTOR Sexual Orientation Not on file documented as [...] Procedure Name Priority Date/Time Associated Diagnosis Comments H. PYLORI ANTIGEN, STOOL Routine 03/30/2022 8:50 PM BOTTLE AND GLASS INSPECTOR Research study patient documented in this encounter Results * H. pylori antigen, stool Stool (03/30/2022 8:50 PM BOTTLE AND GLASS INSPECTOR) H. pylori Ag, stool Negative Negative [facility] Comment: Interpretative Data Testing performed at the [facility] using the Curian HpSA lateral flow immunoassay that detects Helicobacter pylori antigen in feces. This test is FDA cleared and its performance characteristics have been verified by the performing laboratory. ??False negative H. pylori antigen results may occur in patients on antimicrobials, proton pump inhibitors, or bismuth preparations; if clinically indicated, testing should be repeated on a new specimen two weeks after discontinuing these treatments. Interpretative data last revised April 2020. Stool 03/30/2022 8:50 PM BOTTLE AND GLASS INSPECTOR 03/31/2022 11:21 AM BOTTLE AND GLASS INSPECTOR Narrative [facility] - 03/31/2022 9:39 PM BOTTLE AND GLASS INSPECTOR BILL TO IRB study# [id number]. us Jenny Schreiber NP LAB MICROBIOLOGY - GENERAL ORDERABLES Final Result [facility] Department [place] [address] documented in this encounter Visit Diagnoses Diagnosis Research study patient documented in this encounter Care Teams Workday Manager Relationship Specialty Start Date End Date Melonie Ochoa MD PCP - General 01/30/18 04/07/23 documented as of this encounter
--- OUTSIDE RECORDS SUMMARY | 2024-04-11 00:54 | XMS_ITS | Encounter Summary ---
Author Organization [facility] Healthcare Address [address] [place] [address] Care Team Providers Care Mainspring Barrel Assembly Cleaner Name Role Phone Melonie Ochoa MD Primary Care Provider [phone] Encounter Details Date Type Department Care Team (Latest Contact Info) Description 03/31/2022 7:08 AM CAROUSEL ATTENDANT - 03/31/2022 10:16 AM CAROUSEL ATTENDANT Hospital Encounter [facility] ([facility] [address] [place] [phone] Discharge Disposition: Discharge to home or self care Social History Tobacco Use Types Packs/Day Years Used Date Smoking Tobacco: Never Smokeless Tobacco: Never Comments No Sex and Gender Information Value Date Recorded Sex Assigned at Not on file Legal Sex Female 12:45 AM CAROUSEL ATTENDANT Gender Identity Female 03/17/2022 5:30 PM CAROUSEL ATTENDANT Sexual Orientation Not on file documented as [...] on filedocumented in this encounter Care Teams Mainspring Barrel Assembly Cleaner Relationship Specialty Start Date End Date Melonie Ochoa MD PCP - General 01/30/18 04/07/23 documented as of this encounter
--- OUTSIDE RECORDS SUMMARY | 2024-04-11 00:54 | XMS_ITS | Encounter Summary ---
Author Organization [facility] Healthcare Address [address] [place] [address] Care Team Providers Care Recyclable Materials Distributor Name Role Phone Melonie Ochao MD Primary Care Provider [phone] Encounter Details Date Type Department Care Team (Late st Contact Info) Description 03/26/2022 8:40 AM SLUSHER OPERATOR Lab [facility] ([facility]) [address] [place] [id number] Research study patient Social History Tobacco Use Types Packs/Day Years Used Date Smoking Tobacco: Never Smokeless Tobacco: Never Comments No Sex and Gender Information Value Date Recorded Sex Assigned at Not on file Legal Sex Female 12:45 AM SLUSHER OPERATOR Gender Identity Female 03/17/2022 5:30 PM SLUSHER OPERATOR Sexual Orientation Not on file documented as of this encounter Plan of Treatment Not on file documented as of this encounter Procedures Procedure Name Priority Date/Time Associated Diagnosis Comments DIFFERENTIAL AUTO Routine 03/26/2022 8:3 4 AM SLUSHER OPERATOR Research study patient CBC WITH AUTO DIFFERENTIAL Routine 03/26/2022 8:34 AM SLUSHER OPERATOR Research study patient APTT Routine 03/26/2022 8:34 AM SLUSHER OPERATOR Research study patient PROTIME-INR Routine 03/26/2022 8:34 AM SLUSHER OPERATOR Research study patient TSH Routine 03/26/2022 8:34 AM SLUSHER OPERATOR Research study patient T4, FREE Routine 03/26/2022 8:34 AM SLUSHER OPERATOR Research study patient HEMOGLOBIN A1C Routine 03/26/2022 8:34 AM SLUSHER OPERATOR Research study patient HEPATIC FUNCTION PANEL Routine 03/26/2022 8:34 AM SLUSHER OPERATOR Research study patient LIPID PANEL Routine 03/26/2022 8:34 AM SLUSHER OPERATOR Research study patient documented in this encounter Results * Differential, auto (03/26/2022 8:34 AM SLUSHER OPERATOR) Neutrophil abs 3.2 1.7 - 6.5 K/cumm [facility] Imm gran abs 0.0 0.0 - 0.1 K/cumm [facility] Lymphocyte abs 2.0 0.8 - 3.3 K/cumm [facility] Monocyte abs 0.6 0.2 - 0.8 K/cumm [facility] Eosinophil abs 0.2 0.0 - 0.5 K/cumm [facility] Basophil abs 0.0 0.0 - 0.1 K/[facility]umm [facility] Neutrophil pct 53.1 % [facility] Comment: Interpretive Data Percent cell count reference ranges are not reported, since discordance with absolute values may lead to misinterpretation of CBC data. Current Interpretive Data was last revised on 2017. Imm gran pct 0.2 % [facility] Comment: Interpretive Data Percent cell count reference ranges are not reported, since discordance with absolute values may lead to misinterpretation of CBC data. Current Interpretive Data was last revised on 2017. Lymphocyte pct 33.2 % [facility] Comment: Interpretive Data Percent cell count reference ranges are not reported, since discordance with absolute values may lead to misinterpretation of CBC data. Current Interpretive Data was last revised on 2017. Monocyte pct 10.4 % [facility] Comment: Interpretive Data Percent cell count reference ranges are not reported, since discordance with absolute values may lead to misinterpretation of CBC data. Current Interpretive Data was last revised on 2017. Eosinophil pct 2.6 % [facility] Comment: Interpretive Data Percent cell count reference ranges are not reported, since discordance with absolute values may lead to misinterpretation of CBC data. Current Interpretive Data was last revised on 2017. Basophil pct 0.5 % [facility] Comment: Interpretive Data Percent cell count reference ranges are not reported, since discordance with absolute values may lead to misinterpretation of CBC data. Current Interpretive Data was last revised on 2017. Blood 03/26/2022 8:34 AM SLUSHER OPERATOR 03/26/2022 9:00 AM SLUSHER OPERATOR Jenny Schreiber LAB BLOOD ORDERABLES Final Result Performing Organization Address [facility] Co de Phone Number [facility] [place] [employer] [place] [address] * aPTT (03/26/2022 8:34 AM SLUSHER OPERATOR) aPTT 37 27 - [address] [facility] Comment: Interpretive Data Therapeutic heparin range: 60.0 - 94.0 seconds. Based on correlation with therapeutic heparin activity range of 0.3-0.7 Units/mL. Current interpretive data was last revised on 2020. Blood 03/26/2022 8:34 AM SLUSHER OPERATOR 03/26/2022 9:00 AM SLUSHER OPERATOR Narrative [facility] - 03/26/2022 9:29 AM SLUSHER OPERATOR BILL TO IRB study# [id number]. BILL TO IRB study# [id number]. Jenny Schreiber NP LAB BLOOD ORDERABLES Final Result Performing Organization Address City/[facility]/ZIP Co de Phone Number [facility] [place] [place] [address] * CBC with auto differential (03/26/2022 8:34 AM SLUSHER OPERATOR) WBC 6.1 3.8 - 9.9 K/cumm [facility] Hgb 13.5 11.9 - 15.5 g/dL [facility] Hct 40.8 35.6 - 45.5 % [facility] Plt 280 150 - 400 K/cumm [facility] MPV 10.4 9.1 - 12.[address] [facility] RBC 4.53 3.90 - 5.20 M/cumm [facility] MCV 90.1 81.3 - 96.[address] [facility] MCH 29.8 27.1 - 33.[address] [facility] MCHC 33.1 32.3 - 35.7 g/dL [facility] RDW CV 12.9 11.1 - 14.9 % [facility] RDW SD 42.5 35.7 - 48.[address] [facility] NRBC abs 0.00 0.00 - 0.01 K/cumm [facility] Blood 03/26/2022 8:34 AM SLUSHER OPERATOR 03/26/2022 9:00 AM SLUSHER OPERATOR Narrative [facility] - 03/26/2022 9:16 AM SLUSHER OPERATOR BILL TO IRB study# [id number]. BILL TO IRB study# [id number]. Jenny Schreiber NP LAB BLOOD ORDERABLES Final Result [facility] [place] [address] * Hemoglobin A1c (03/26/2022 8:34 AM SLUSHER OPERATOR) Hgb A1C 5.4 4.0 - 5.6 % [facility] Estimated Average Glucose 108 mg/dL [facility] Comment: The ADA recommends reporting an estimated Average Glucose (eAG) with all Hemoglobin A1c results using the equation derived from a study of 507 normal and diabetic adults. ??Minority populations were underrepresented and children were not included. ?? (Diabetes Care 2020; 43(S1): S66-S76). ??The eAG is not equivalent to a fasting glucose. Blood 03/26/2022 8:34 AM SLUSHER OPERATOR 03/26/2022 9:00 AM SLUSHER OPERATOR Narrative [facility] - 03/26/2022 10:15 AM SLUSHER OPERATOR BILL TO IRB study# [id number]. BILL TO IRB study# [id number]. Jenny Schreiber MANAGER RISK LAB BLOOD ORDERABLES Final Result Performing Organization Address [facility] de Phone Number [facility] [place] [address] * (ABNORMAL) Hepatic function panel (03/26/2022 8:34 AM SLUSHER OPERATOR) Bilirubin, total 0.3 0.1 - 1.2 mg/dL [facility] Bilirubin, direct <0.2 0.1 - 0.3 mg/dL [facility] Protein, pl 7.3 6.5 - 8.5 g/dL [facility] Albumin 4.3 3.5 - 5.0 g/dL [facility] Alk phos 20(L) 40 - 130 Units/L [facility] ALT 22 7 - 45 Units/L [facility] AST 19 10 - 45 Units/L [facility] Blood 03/26/2022 8:34 AM SLUSHER OPERATOR 03/26/2022 9:00 AM SLUSHER OPERATOR Narrative [facility] - 03/26/2022 9:43 AM SLUSHER OPERATOR BILL TO IRB study# [id number]. BILL TO IRB study# [id number]. Jenny Schreiber NP LAB BLOOD ORDERABLES Final Result Performing Organization Address [facility] de Phone Number [facility] [place] [address] * (ABNORMAL) Lipid panel (03/26/2022 8:34 AM SLUSHER OPERATOR) Cholesterol 206(H) 30 - 199 mg/dL [facility] Comment: Interpretive Data Ages < or [...] Data was last revised on 2017. Triglycerides 84 <=149 mg/dL [facility] Comment: Interpretive Data Ages < or = [...] Data was last revised on 2017. HDL 52 >=40 mg/dL [facility] Comment: Interpretive Data Ages < or = [...] was last revised on 2017. LDL, calculated 137(H) <=129 mg/dL [facility] Comment: Interpretive Data Ages < [...] was last revised on 2017. Non-HDL Cholesterol 154 mg/dL [facility] Comment: Interpretive Data Ages < [...] was last revised on 2017. Chol/HDL ratio [address] [facility] Blood 03/26/2022 8:34 AM SLUSHER OPERATOR 03/26/2022 9:00 AM SLUSHER OPERATOR Narrative [facility] - 03/26/2022 9:43 AM SLUSHER OPERATOR BILL TO IRB study# [id number]. BILL TO IRB study# [id number]. Jenny Schreiber NP LAB BLOOD ORDERABLES Final Result Performing Organization Address City/State/[facility] [place] [address] * Protime-INR (03/26/2022 8:34 AM SLUSHER OPERATOR) PT 11.1 9.2 - 13.[address] [facility] INR 1.0 0.9 - 1.[address] [facility] Comment: Interpretive data Oral anticoagulant therapeutic ranges: Venous thromboembolism prophylaxis or treatment: 2.0-3.0 CARDIOLOGY Standard range: 2.0-3.0 High-intensity range: 2.5-3.5 Refer to indication-specific guidelines for appropriate target ranges for prosthetic heart valve replacement. Current interpretive data was last revised on 2019. Blood 03/26/2022 8:34 AM SLUSHER OPERATOR 03/26/2022 9:00 AM SLUSHER OPERATOR Narrative [facility] - 03/26/2022 9:29 AM SLUSHER OPERATOR BILL TO IRB study# [id number]. BILL TO IRB study# [id number]. Jenny Schreiber NP LAB BLOOD ORDERABLES Final Result Performing Organization Address [facility] [place] [address] * T4, free (03/26/2022 8:34 AM SLUSHER OPERATOR) Free T4 1.08 0.90 - 1.70 ng/dL [facility] Blood 03/26/2022 8:34 AM SLUSHER OPERATOR 03/26/2022 9:00 AM SLUSHER OPERATOR Narrative [facility] - 03/26/2022 9:43 AM SLUSHER OPERATOR BILL TO IRB study# [id number]. BILL TO IRB study# [id number]. Jenny Schreiber NP LAB BLOOD ORDERABLES Final Result Performing Organization Address [facility] [place] [address] * TSH (03/26/2022 8:34 AM SLUSHER OPERATOR) Thyroid Stimulating Hormone 3.46 0.30 - 4.20 mcIUnit/mL [facility] Blood 03/26/2022 8:34 AM SLUSHER OPERATOR 03/26/2022 9:00 AM SLUSHER OPERATOR Narrative [facility] - 03/26/2022 9:43 AM SLUSHER OPERATOR BILL TO IRB study# [id number]. BILL TO IRB study# [id number]. us Jenny Schreiber MANAGER RISK LAB BLOOD ORDERABLES Final Result [facility] Department [place] [address] documented in this encounter Visit Diagnoses Diagnosis Research study patient documented in this encounter Care Teams Recyclable Materials Distributor Relationship Specialty Start Date End Date Melonie Ochoa MD PCP - General 01/30/18 04/07/23 documented as of this encounter
--- OUTSIDE RECORDS SUMMARY | 2024-04-11 00:54 | XMS_ITS | Encounter Summary ---
Author Organization [facility] Address [address] [place] [address] Care Team Providers Care Dictionary Editor Name Role Phone Melonie Ochoa MD Primary Care Provider [phone] Reason for Referral * Diagnostic Imaging (Routine) - Closed Specialty Diagnoses / Procedures Referred By Yanni weaver Referred To Contact Diagnoses Encounter for screening mammogram for malignant neoplasm of breast Procedures Screening Mammogram Bilateral W Ravi Negro MD [address] [place] [address] Phone: tel: fax: [address] [phone] Referral ID Status Reason Start Date Expiration Date Visits Re quested Visits Authorized [id number] Closed 10/06/2019 04/16/2021 1 1 Reason for Visit * Diagnostic Imaging (Routine) - Closed Specialty Diagnoses / Procedures Referred By Yanni weaver Referred To Contact Diagnoses Encounter for screening mammogram for malignant neoplasm of breast Procedures Screening Mammogram Bilateral W Ravi Negro MD [address] [address] Phone: tel: fax: [address] [phone] Referral ID Status Reason Start Date Expiration Date Visits Re quested Visits Authorized [id number] Closed 10/06/2019 04/16/2021 1 1 Encounter Details Date Type Department Care Team (Latest Contact Info) Description 10/07/2019 8:15 AM CDT - 10/07/2019 8:16 AM CDT Hospital Encounter [facility] [address] [place] [address] Ravi Krishna MD [address] [place] [address] Encounter for screening mammogram for malignant neoplasm of breast Discharge Disposition: Discharge to home or self care Social History Tobacco Use Types Packs/Day Years Used Date Smoking Tobacco: Never Smokeless Tobacco: Never Comments No Sex and Gender Information Value Date Recorded Sex Assigned at Not on file Legal Sex Female 12:45 AM POULTRY BARN MANAGER Gender Identity Female 03/17/2022 5:30 PM POULTRY BARN MANAGER Sexual Orientation Not on file documented as of this encounter Medications at Time of Discharge calcium carbonate-vitami n D3 500mg (1,250mg) -600 unit tablet Take by mouth. cetirizine (ZyrTEC) 10 mg tablet Take 1 tablet (10 mg total) by mouth daily 03/24/2012 fluticasone propionate (FLONASE) 50 mcg/actuation nasal spray Administer 1 spray into affected nostril(s) daily 10/22/2015 estrogens-methyl TESTOSTERone (EEMT,COVARYX) 0.625-1.25 mg per tablet Take by mouth 04/13/2018 3 fluticasone propionate (FLONASE) 50 mcg/actuation nasal spray Administer 2 sprays into affected nostril(s) daily 11/09/2018 3 traMADol (ULTRAM) 50 mg tablet Take 1-2 tablets (50-100 mg total) by mouth every 6 (six) hours as needed for pain (1 tablet for mild to moderate pain or 2 tablets for severe pain). 20 tablet 01/30/2018 2 documented as of this encounter Discharge Disposition Disposition Code Departure Means Destination Discharge to home or self care documented in this encounter Plan of Treatment Not on file documented as of this encounter Procedures Procedure Name Priority Date/Time Associated Diagnosis Comments SCREENING MAMMOGRAM BILATERAL W JADON Schedule Routine, Read Routine (OP Routine) 10/07/2019 8:39 AM CDT Encounter for screening mammogram for malignant neoplasm of breast documented in this encounter Results * Screening Mammogram Bilateral W Jadon (10/07/2019 8:39 AM CDT) Anatomical Region Laterality Modality Breast Bilateral Mammography 10/10/2019 1:37 PM CDT Impressions 10/10/2019 1:45 PM CDT There is no mammographic evidence of malignancy. A 1 year screening mammogram is recommended. BI-RADS: 1 - Negative. The patient will be entered into a reminder system with a target due date of 1 year for her next mammogram. Electronically signed by: Jama Vergara M.D. Narrative 10/10/2019 1:45 PM CDT EXAMINATION: SCREENING MAMMOGRAM BILATERAL W JADON ORDERING HEALTHCARE PROVIDER: RAVI KRISHNA HISTORY: Routine screening mammography. COMPARISON: ??11/12/2018. TECHNIQUE: CC and MLO views of the bilateral breasts were obtained with digital technique using breast tomosynthesis with C view. Computer aided detection was utilized. FINDINGS: DENSITY: There are scattered fibroglandular elements in the bilateral breasts. BREASTS: There are no suspicious masses, suspicious calcifications, or other suspicious findings in either breast. There has been no suspicious interval change. us Ravi Krishna MD IMG MAMMO PROCEDURES Final Result documented in this encounter Visit Diagnoses Diagnosis Encounter for screening mammogram for malignant neoplasm of breast documented in this encounter Care Teams Dictionary Editor Relationship Specialty Start Date End Date Melonie Ochoa MD PCP - General 01/30/18 04/07/23 documented as of this encounter
--- OUTSIDE RECORDS SUMMARY | 2024-04-11 00:54 | XMS_ITS | Encounter Summary ---
Author Organization [facility] Healthcare Address [address] [place] [address] Care Team Providers Care Service Correspondent Name Role Phone Melonie Ochoa MD Primary Care Provider [phone] Reason for Visit * Reason Comments Abdominal Pain Encounter Details Date Type Department Care Team ([facility] st Contact Info) Description 01/30/2018 11:30 AM CDT - 01/30/2018 1:09 PM CDT Emergency [facility] Emergency Department [address] [place] [address] Veda Lowery MD [address] [place] [address] Pelvic pain (Primary Dx) Discharge Disposition: Discharge to home or self care Social History Tobacco Use Types Packs/Day Years Used Date Smoking Tobacco: Never Smokeless Tobacco: Never Comments No Sex and Gender Information Value Date Recorded Sex Assigned at Not on file Legal 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 Gender Identity Female 03/17/2022 5:30 PM [employer]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 * Pelvic Pain, Unknown Cause ([place] African) documented in this encounter Medications at Time of Discharge calcium carbonate-vitami n D3 500mg (1,250mg) -600 unit tablet Take by mouth. cetirizine (ZyrTEC) 10 mg tablet Take 1 tablet (10 mg total) by mouth daily 03/24/2012 fluticasone propionate (FLONASE) 50 mcg/actuation nasal spray Administer 1 spray into affected nostril(s) daily 10/22/2015 traMADol (ULTRAM) 50 mg tablet Take 1-2 tablets (50-100 mg total) by mouth every 6 (six) hours as needed for pain (1 tablet for mild to moderate pain or 2 tablets for severe pain). 20 tablet 01/30/2018 2 documented as of this encounter Ordered Prescriptions Prescription Sig Dispense Quantity Refills Last Filled Start Date End Date traMADol (ULTRAM) 50 mg tablet Take 1-2 tablets (50-100 mg total) by mouth every 6 (six) hours as needed for pain (1 tablet for mild to moderate pain or 2 tablets for severe pain). 20 tablet 01/30/2018 2 documented in this encounter Discharge Disposition Disposition Code Departure Means Destination Discharge to home or self care documented in this encounter ED Notes * Veda Lowery MD - 01/30/2018 11:48 AM CDT HPI Chief Complaint Patient presents with ??? Abdominal Pain 11:42 AM: Patient is a 37 year old female with a history of endometriosis, hysterectomy, right oophorectomy, and appendectomy, who presents to the ED complaining of intermittent LLQ abdominal pain that began 3 days ago. And has improved today. Yesterday the patient went to [facility] who did a CT , they ordered a follow up US today which showed fluid on the left ovary and no blood flow in the left ovary. They advised the patient to be seen in the ED. She states that she is not currently having abdominal pain. She has been taking Tramadol every six hours which relieved her pain. The patient does not currently have an OBGYN, has an appointment with a new OBGYN in March. Thereare no other complaints at this time. Patient History There are no active problems to display for this patient. Past Medical History: Diagnosis Date ??? Endometriosis ??? H/O dilation and curettage Past Surgical History: Procedure Laterality Date ??? APPENDECTOMY ??? HYSTERECTOMY ??? OOPHERECTOMY History reviewed. No pertinent family history. Social History Substance Use Topics ??? Smoking status: Never Smoker ??? Smokeless tobacco: Never Used ??? Alcohol use Not on file Social History Social History Narrative ??? No narrative on file Review of Systems Review of Systems Constitutional: Negative for chills, fatigue and fever. Respiratory: Negative for cough and shortness of breath. Cardiovascular: Negative for chest pain. Gastrointestinal: Positive for abdominal pain (Intermittent LLQ). Negative for constipation, diarrhea, nausea and vomiting. Musculoskeletal: Negative for arthralgias, back pain, myalgias and neck pain. Skin: Negative for color change, pallor, rash and wound. Neurological: Negative for dizziness, light-headedness and headaches. All other systems reviewed and are negative. Physical Exam ED Triage Vitals [01/30/18 1145] Temp Pulse Resp BP SpO2 -- -- -- 124/67 100 % Temp src Heart Rate Source Patient Position BP Location FiO2 (%) -- -- -- -- -- Physical Exam Constitutional: She is oriented to person, place, and time. She appears well- developed and well-nourished. No distress. HENT: Head: Normocephalic and atraumatic. Mouth/Throat: Oropharynx is clear and moist. Eyes: Conjunctivae and EOM are normal. Neck: Normal range of motion. Neck supple. Cardiovascular: Normal rate, regular rhythm, normal heart sounds and intact distal pulses. Exam reveals no gallop and no friction rub. No murmur heard. Pulmonary/Chest: Effort normal and breath sounds normal. No respiratory distress. She has no wheezes. She has no rales. Abdominal: Soft. She exhibits no distension. There is no tenderness. There is no rebound and no guarding. Musculoskeletal: Normal range of motion. She exhibits no edema, tenderness or deformity. Neurological: She is alert and oriented to person, place, and time. Skin: Skin is warm and dry. Capillary refill takes less than 2 seconds. No rash noted. No erythema.No pallor. Psychiatric: She has a normal mood and affect. Her behavior is normal. Nursing note and vitals reviewed. BP 109/63 Ht 167.6 cm (5' 6 ) Wt 95.3 kg (210 lb) SpO2 100% BMI 33.89 kg/m?? Labs Reviewed COMPREHENSIVE METABOLIC PANEL - Abnormal Result Value Sodium 138 Potassium, pl 3.5 Chloride 105 CO2 20 (*) Anion Gap 13 BUN 13 Creatinine 0.50 (*) Glucose 103 Calcium 9.3 Bilirubin, total 0.4 Protein, pl 6.8 Albumin 4.1 Alk phos 21 (*) ALT 12 AST 15 Narrative: CBC WITH AUTO DIFFERENTIAL WBC 7.3 Hgb 13.3 Hct 37.9 Plt 260 MPV 9.8 RBC 4.32 MCV 87.7 MCH 30.8 MCHC 35.1 RDW CV 12.0 RDW SD 39.1 NRBC Abs 0.00 Narrative: PROTIME-INR PT 11.5 INR 1.02 Narrative: APTT aPTT 33.7 Narrative: DIFFERENTIAL AUTO Neutrophil absolute 4.7 Immature granulocyte absolute 0.0 Lymphocytes absolute 1.9 Monocyte absolute 0.6 Eosinophils absolute 0.1 Basophils, abs 0.0 Neutrophils 64.6 Immature granulocytes 0.1 Lymphocytes 25.4 Monocytes 7.9 Eosinophils 1.9 Basophils 0.1 Narrative: EGFR GFR >60 Narrative: No orders to display [facility] ED Course as of Jan 30 1309 Time: 01/30 1208 Comment: Discussed the patient's case with YARITZA Israel, read him the ultrasound results from urgent care today. He states this US finding is fairly common and does not believe the patient needsemergent intervention. He states the management will be determined by the changes on follow up ultrasound in 2- 3 days. He states that the patient needs a follow up ultrasound outpatient and that shecan be discharged home. By: Gretta Cole Time: 01/30 1211 Comment: Rechecked patient. Discussed all results from the ED course and plan for discharge. Patient instructed to have a follow up ultrasound next week. Patient understands and agrees to the plan. All questions addressed. By: Gretta Cole Pelvic pain 1:17 PM: Gretta Cole, scribing for and in the presence of Dr. Veda Lowery MD. I electronically signed this note at 1:17 PM on 01/30/2018. I, Dr. Veda Lowery MD, have personally performed the services described in the documentation , reviewed the documentation, as recorded by the scribe in my presence, and it accurately and completely records my words and actions. Veda Lowery MD 01/30/18 1317 * Marisol López, CHEV[place] - 01/30/2018 11:45 AM CDT Pt reports that she was seen at and told she has an ovarian torsion. States that she is having LLQ pain documented in this encounter Plan of Treatment Not on file documented as of this encounter Procedures Procedure Name Priority Date/Time Associated Diagnosis Comments EGFR STAT 01/30/2018 12:20 PM CDT DIFFERENTIAL AUTO STAT 01/30/2018 12: 20 PM CDT CBC WITH AUTO DIFFERENTIAL STAT 01/30/2018 12:20 PM CDT APTT STAT 01/30/2018 12:20 PM CDT PROTIME-INR STAT 01/30/2018 12:20 PM CDT COMPREHENSIVE METABOLIC PANEL STAT 01/30/2018 12:20 PM CDT documented in this encounter Results * eGFR (01/30/2018 12:20 PM CDT) eGFR >60 mL/min/1.7 3 m2 [facility] ([place]) Comment: Interpretive Data Reference Interval Normal ?>/= 90 mL/min/1.73m2 Mildly decreased* ? 60 - 89 mL/min/1.73m2 Mildly to moderately decreased ?45 - 59 mL/min/1.73m2 Moderately to severely decreased ??30 - 44 mL/min/1.73m2 Severely decreased ?15 - 29 mL/min/1.73m2 Kidney Failure ?< 15 ??mL/min/1.73m2 *Relative to young adult level If -[place] multiply value by 1.16. Estimated glomerular filtration rate is determined by the CKD-EPI equation recommended by the National Kidney Foundation (KDIGO 2012 Clinical Practice Guideline for the Evaluation and Management of Chronic Kidney Disease. Kidney Intnl Suppl Apr 2012;3:1). The CKD-EPI equation should not be used for patients with unstable renal function and has not been validated in children and those over 70. Current interpretive data was last reviewed 2015. Blood specimen (specimen) 01/30/2018 12:20 PM CDT 01/30/2018 12:22 PM CDT Narrative [facility] ([place]) - 01/30/2018 12:44 PM CDT us Veda Lowery MD LAB BLOOD ORDERABLE S Final Result [facility] ([place]) 1 [facility] Department [place] [address] * Differential, auto (01/30/2018 12:20 PM CDT) Neutrophil abs 4.7 1.7 - 6.5 K/cumm [facility] ([place]) Imm gran abs 0.0 0.0 - 0.1 K/cumm [facility] ([place]) Lymphocyte abs 1.9 0.8 - 3.3 K/cumm [facility] ([place]) Monocyte abs 0.6 0.2 - 0.8 K/cumm [facility] ([place]) Eosinophil abs 0.1 0.0 - 0.5 K/cumm [facility] ([place]) Basophil abs 0.0 0.0 - 0.1 K/cumm [facility] ([place]) Neutrophil pct 64.6 % [facility] ([facility]) Comment: Interpretive Data Percent cell count reference ranges are not reported, since discordance with absolute values may lead to misinterpretation of CBC data. Current Interpretive Data was last revised on 2017. Imm gran pct 0.1 % [facility] ([place]) Comment: Interpretive Data Percent cell count reference ranges are not reported, since discordance with absolute values may lead to misinterpretation of CBC data. Current Interpretive Data was last revised on 2017. Lymphocyte pct 25.4 % [facility] ([place]) Comment: Interpretive Data Percent cell count reference ranges are not reported, since discordance with absolute values may lead to misinterpretation of CBC data. Current Interpretive Data was last revised on 2017. Monocyte pct 7.9 % [facility] ([place]) Comment: Interpretive Data Percent cell count reference ranges are not reported, since discordance with absolute values may lead to misinterpretation of CBC data. Current Interpretive Data was last revised on 2017. Eosinophil pct 1.9 % [facility] ([place]) Comment: Interpretive Data Percent cell count reference ranges are not reported, since discordance with absolute values may lead to misinterpretation of CBC data. Current Interpretive Data was last revised on 2017. Basophil pct 0.1 % [facility] ([place]) Comment: Interpretive Data Percent cell count reference ranges are not reported, since discordance with absolute values may lead to misinterpretation of CBC data. Current Interpretive Data was last revised on 2017. Blood specimen (specimen) 01/30/2018 12:20 PM CDT 01/30/2018 12:22 PM CDT Narrative [facility]) - 01/30/2018 12:24 PM CDT Veda Lowery MD LAB BLOOD ORDERABLE S Final Result Performing Organization Address City/[facility] Co de Phone Number [facility]) [address] [place] [address] [employer] [place] [address] * aPTT (01/30/2018 12:20 PM CDT) aPTT 33.7 25.0 - 37.0 sec [facility] ([place]) Blood specimen (specimen) 01/30/2018 12:20 PM CDT 01/30/2018 12:22 PM CDT Narrative [facility] ([place]) - 01/30/2018 12:34 PM CDT Veda Lowery MD LAB BLOOD ORDERABLE S Final Result Performing Organization Address City/[facility] Co de Phone Number [facility]) [address] [place] [address] [employer] [place] [address] * Protime-INR (01/30/2018 12:20 PM CDT) PT 11.5 9.5 - 13.0 sec [facility] ([place]) INR 1.02 0.90 - 1.20 [facility] ([place]) Comment: Interpretive Data Recommended ranges for Protime INR: 2.0 - 3.0 Most indications for Warfarin therapy (e.g. Treatment of DVT, PE, bioprosthetic valve replacement, prophylaxis venous thrombosis, atrial fibrillation). 2.5 - 3.5 Mechanical mitral valve or dual mechanical mitral and Aortic valve replacement. Current Interpretive Data was last revised on 2014. Blood specimen (specimen) 01/30/2018 12:20 PM CDT 01/30/2018 12:22 PM CDT Narrative [facility] ([facility]) - 01/30/2018 12:31 PM CDT us Veda Lowery MD LAB BLOOD ORDERABLE S Final Result [facility] ([place]) 1 [facility] Department [place] [address] * CBC with auto differential (01/30/2018 12:20 PM CDT) Pathologist [facility] WBC 7.3 3.8 - 9.9 K/cumm [facility] ([facility]) Hgb 13.3 11.9 - 15.5 g/dL [facility] ([facility]) Hct 37.9 35.6 - 45.5 % [facility] ([place]) Plt 260 150 - 400 K/cumm [facility] ([place]) MPV 9.8 9.1 - 12.3 fL [facility] ([place]) RBC 4.32 3.90 - 5.20 M/cumm [facility] ([place]) MCV 87.7 81.3 - 96.4 fL [facility] ([place]) MCH 30.8 27.1 - 33.3 pg [facility] ([place]) MCHC 35.1 32.3 - 35.7 g/dL [facility] ([place]) RDW CV 12.0 11.1 - 14.9 % [facility] ([place]) RDW SD 39.1 35.7 - 48.1 fL [facility] ([place]) NRBC abs 0.00 0.00 - 0.01 K/cumm [facility] ([place]) Blood specimen (specimen) 01/30/2018 12:20 PM CDT 01/30/2018 12:22 PM CDT Narrative [facility] ([place]) - 01/30/2018 12:24 PM CDT us Veda Lowery MD LAB BLOOD ORDERABLE S Final Result [facility] ([place]) 1 [facility] Department [place] [address] * (ABNORMAL) Comprehensive metabolic panel (01/30/2018 12:20 PM CDT) Sodium 138 135 - 145 mmol/L [facility] ([place]) Potassium, pl 3.5 3.3 - 4.9 mmol/L [facility] ([place]) Chloride 105 97 - 110 mmol/L [facility] ([facility]) CO2 20(L) 22 - 32 mmol/L [facility] ([place]) Anion gap 13 2 - 15 mmol/L [facility] ([facility]) BUN 13 8 - 25 mg/dL [facility] ([facility]) Creatinine 0.50(L) 0.60 - 1.10 mg/dL [facility] ([facility]) Glucose 103 70 - 199 mg/dL [facility] ([facility]) Comment: Interpretive Data Fasting glucose >/= 126 mg/dl is diagnostic for diabetes. ?? Fasting is defined as no caloric intake for at least 8 hours. Fasting glucose between 100 mg/dl to 125 mg/dl is diagnostic of prediabetes. In a patient with classic symptoms of hyperglycemia or hyperglycemic crisis, a random glucose >/= 200 mg/dl is diagnostic for diabetes. In the absence of unequivocal hyperglycemia, results should be confirmed by repeat testing. The classification and Diagnosis of Diabetes Diabetes Care 2017;40 (Suppl. 1):S11. Current interpretive data was last revised 2017. Calcium 9.3 8.5 - 10.3 mg/dL [facility] ([place]) Bilirubin, total 0.4 0.1 - 1.2 mg/dL [facility] ([facility]) Protein, pl 6.8 6.5 - 8.5 g/dL [facility] ([place]) Albumin 4.1 3.5 - 5.0 g/dL [facility] ([facility]) Alk phos 21(L) 40 - 130 Units/L [facility] ([facility]) ALT 12 7 - 45 Units/L [facility] ([facility]) AST 15 10 - 45 Units/L [facility] ([facility]) Blood specimen (specimen) 01/30/2018 12:20 PM CDT 01/30/2018 12:22 PM CDT Narrative [facility] ([facility]) - 01/30/2018 12:44 PM CDT us Veda Lowery MD LAB BLOOD ORDERABLE S Final Result [facility] ([place]) [address] [facility] Department [place] [address] documented in this encounter Visit Diagnoses Diagnosis Pelvic pain- Primary documented in this encounter Administered Medications Inactive Administered Medications - up to 3 most recent administrations Medication Order MAR Action Action Date Dose Rate Site sodium chloride 0.9% bolus 1,000 mL 1,000 mL, intravenous, at 1,000 mL/hr, Administer over 1 Hours, Once, On 01/30/18 at 1148, For 1 dose New Bag 01/30/2018 12:12 PM CDT 1,000 mL 1000 mL/hr documented in this encounter Historical Medications * This list may reflect changes made after this encounter. calcium carbonate-vitamin D3 500mg (1,250mg) -600 unit tablet Take by mouth. added in this encounter Active and Recently Administered Medications Times are shown in CDT. Scheduled Medication Order 01/28/2018 01/29/2018 01/30/2018 sodium chloride 0.9% bolus 1,000 mL (COMPLETED) 1,000 mL, intravenous, at 1,000 mL/hr, Administer over 1 Hours, Once, On 01/30/18 at 1148, For 1 dose 1212 (New Bag - Prov ider: Marisol López RN)1256 (Stopped - Provider: Marisol López RN)1312 (Due: Stopped - Provider: Marisol López, RN) documented in this encounter Orders Medications Ordered That Vishal ht Not Have Been Administered Count Last Ordered Date First Ordered Date sodium chloride 0.9% bolus 1,000 mL 1 01/30 documented in this encounter Care Teams Service Correspondent Relationship Specialty Start Date End Date Melonie Ochoa MD PCP - General 01/30/18 04/07/23 documented as of this encounter
--- OUTSIDE RECORDS SUMMARY | 2024-04-11 00:54 | XMS_ITS | Encounter Summary ---
Author Organization [facility] Address [address] [place] [address] Phone Care Team Providers Care Cripple Worker Name Role Phone Melonie Ochoa MD Primary Care Provider [phone] Reason for Referral * Cardiology (Routine) - Closed Specialty Diagnoses / Procedures Referred By Contac t Referred To Contact Diagnoses Research study patient Procedures ECG 12 lead Jenny Schreiber NP [address] [place] [address] Phone: tel: fax: [facility] Referral ID Status Reason Start Date Expiration Date Visits Re quested Visits Authorized [id number] Closed 03/24/2022 04/23/2023 1 1 SIT PLANNING MANAGER Encounter Details Date Type Department Care Team (Late st Contact Info) Description 03/24/2022 2:00 PM TRANSIT PLANNING MANAGER Office Visit [facility] Gastroenterology [address] [facility] 12th [place] [address] [place] [address] Jenny Schreiber NP [address] [place], [place] [id number] Research study patient (Primary Dx) Social History Tobacco Use Types Packs/Day Years Used Date Smoking Tobacco: Never Smokeless Tobacco: Never Comments No Sex and Gender Information Value Date Recorded Sex Assigned at Not on file Legal Sex Female 12:45 AM TRANSIT PLANNING MANAGER Gender Identity Female 03/17/2022 5:30 PM TRANSIT PLANNING MANAGER Sexual Orientation Not on file documented as of this encounter Last Filed Vital Signs Vital Sign Reading Time Taken Comments Blood Pressure 101/67 03/24/2022 2:34 PM TRANSIT PLANNING MANAGER Pulse 61 03/24/2022 2:34 PM TRANSIT PLANNING MANAGER Temperature 36.5 ??C (97.7 ??F) 03/24/2022 2:34 PM CS T Respiratory Rate 12 03/24/2022 2:34 PM TRANSIT PLANNING MANAGER Oxygen Saturation - - Inhaled Oxygen Concentration - - Weight 106.7 kg (235 lb 3.2 oz) 03/24/2022 2:34 PM TRANSIT PLANNING MANAGER Height 167.6 cm (5' 6 ) 03/24/2022 2:34 PM TRANSIT PLANNING MANAGER Body Mass Index 37.96 03/24/2022 2:34 PM TRANSIT PLANNING MANAGER documented in this encounter Progress Notes * Jenny Schreiber NP - 03/24/2022 2:00 PM CST NAME: Airam Munoz : 1980 DOS: 03/24/2022 Audacity Screening Visit Consent form signed Patient successfully completed practice swallow H/P completed Vitals completed EKG to be completed today Labs and esophagram ordered Once results are received, we will schedule the baseline visit and randomization. Patient will at that time have medication orders placed. She plans discontinue her Prozac and will be able to resume in the study in 30 days. Diagnoses and all orders for this visit: Research study patient (Primary) - aPTT; Future - CBC with auto differential; Future - FL Esophagram, Single Contrast; Future - ECG 12 lead; Future - H. pylori antigen, stool Stool; Future - Hemoglobin A1c; Future - Hepatic function panel; Future - Lipid panel; Future - Protime-INR; Future - T4, free; Future - TSH; Future SIT PLANNING MANAGER documented in this encounter Plan of Treatment Not on file documented as of this encounter Results * H. pylori antigen, stool Stool (03/30/2022 8:50 PM TRANSIT PLANNING MANAGER) H. pylori Ag, stool Negative Negative [facility] Comment: Interpretative Data Testing performed at the [facility] Microbiology Laboratory using the Curian HpSA lateral [...] revised April 2020. Stool 03/30/2022 8:50 PM TRANSIT PLANNING MANAGER 03/31/2022 11:21 AM TRANSIT PLANNING MANAGER Narrative [facility] - 03/31/2022 9:39 PM TRANSIT PLANNING MANAGER BILL TO IRB study# [id number]. Jenny Schreiber NP LAB MICROBIOLOGY - GENERAL ORDERABLES Final Result Performing Organization Address City/[facility] Co de Phone Number [facility] Department [place] [employer] [place] [address] * TSH (03/26/2022 8:34 AM TRANSIT PLANNING MANAGER) Thyroid Stimulating Hormone 3.46 0.30 - 4.20 mcIUnit/mL [facility] Blood 03/26/2022 8:34 AM TRANSIT PLANNING MANAGER 03/26/2022 9:00 AM TRANSIT PLANNING MANAGER Narrative [facility] - 03/26/2022 9:43 AM TRANSIT PLANNING MANAGER BILL TO IRB study# [id number]. BILL TO IRB study# [id number]. Jenny Schreiber NP LAB BLOOD ORDERABLES Final Result [facility] [place] [employer] [place] [address] * T4, free (03/26/2022 8:34 AM TRANSIT PLANNING MANAGER) Free T4 1.08 0.90 - 1.70 ng/dL [facility] Blood 03/26/2022 8:34 AM TRANSIT PLANNING MANAGER 03/26/2022 9:00 AM TRANSIT PLANNING MANAGER Narrative [facility] - 03/26/2022 9:43 AM TRANSIT PLANNING MANAGER BILL TO IRB study# [id number]. BILL TO IRB study# [id number]. Jenny Schreiber NP LAB BLOOD ORDERABLES Final Result Performing Organization Address [facility] [place]/[facility] [place] [address] * Protime-INR (03/26/2022 8:34 AM TRANSIT PLANNING MANAGER) PT 11.1 9.2 - 13.5 sec [facility] INR 1.0 0.9 - 1.2 [facility] Comment: Interpretive data Oral anticoagulant therapeutic ranges: Venous thromboembolism prophylaxis or treatment: 2.0-3.0 CARDIOLOGY Standard range: 2.0-3.0 High-intensity range: 2.5-3.5 Refer to indication-specific guidelines for appropriate target ranges for prosthetic heart valve replacement. Current interpretive data was last revised on 2019. Blood 03/26/2022 8:34 AM TRANSIT PLANNING MANAGER 03/26/2022 9:00 AM TRANSIT PLANNING MANAGER Narrative [facility] - 03/26/2022 9:29 AM TRANSIT PLANNING MANAGER BILL TO IRB study# [id number]. BILL TO IRB study# [id number]. Jenny Schreiber NP LAB BLOOD ORDERABLES Final Result Performing Organization Address [facility] [place]/[facility] de Phone Number [facility] [employer] [place] [address] * (ABNORMAL) Lipid panel (03/26/2022 8:34 AM TRANSIT PLANNING MANAGER) Cholesterol 206(H) 30 - 199 mg/dL [facility] Comment: Interpretive Data Ages < [...] revised on 2017. Triglycerides 84 <=149 mg/dL [facility] Comment: Interpretive Data Ages < or = [...] revised on 2017. HDL 52 >=40 mg/dL [facility] Comment: Interpretive Data Ages < or = [...] on 2017. LDL, calculated 137(H) <=129 mg/dL [facility] Comment: Interpretive Data Ages < or = [...] revised on 2017. Non-HDL Cholesterol 154 mg/dL [facility] Comment: Interpretive Data Ages < or = [...] last revised on 2017. Chol/HDL ratio 4 [facility] Blood 03/26/2022 8:34 AM TRANSIT PLANNING MANAGER 03/26/2022 9:00 AM TRANSIT PLANNING MANAGER Narrative [facility] - 03/26/2022 9:43 AM TRANSIT PLANNING MANAGER BILL TO IRB study# [id number]. BILL TO IRB study# [id number]. Jenny Schreiber NP LAB BLOOD ORDERABLES Final Result Performing Organization Address [facility] [place]/[facility]/ZIP Co de Phone Number [facility] [place] [address] * (ABNORMAL) Hepatic function panel (03/26/2022 8:34 AM TRANSIT PLANNING MANAGER) Bilirubin, total 0.3 0.1 - 1.2 mg/dL [facility] Bilirubin, direct <0.2 0.1 - 0.3 mg/dL [facility] Protein, pl 7.3 6.5 - 8.5 g/dL [facility] Albumin 4.3 3.5 - 5.0 g/dL [facility] Alk phos 20(L) 40 - 130 Units/L [facility] ALT 22 7 - 45 Units/L [facility] AST 19 10 - 45 Units/L [facility] Blood 03/26/2022 8:34 AM TRANSIT PLANNING MANAGER 03/26/2022 9:00 AM TRANSIT PLANNING MANAGER Narrative [facility] - 03/26/2022 9:43 AM TRANSIT PLANNING MANAGER BILL TO IRB study# [id number]. BILL TO IRB study# [id number]. Jenny Schreiber NP LAB BLOOD ORDERABLES Final Result Performing Organization Address [facility] de Phone Number [facility] [place] [address] * Hemoglobin A1c (03/26/2022 8:34 AM TRANSIT PLANNING MANAGER) Hgb A1C 5.4 4.0 - 5.6 % [facility] Estimated Average Glucose 108 mg/dL [facility] Comment: The ADA recommends reporting an estimated Average Glucose (eAG) with all Hemoglobin A1c results using the equation derived from a study of 507 normal and diabetic adults. ??Minority populations were underrepresented and children were not included. ?? (Diabetes Care 2020; 43(S1): S66-S76). ??The eAG is not equivalent to a fasting glucose. Blood 03/26/2022 8:34 AM TRANSIT PLANNING MANAGER 03/26/2022 9:00 AM TRANSIT PLANNING MANAGER Narrative [facility] - 03/26/2022 10:15 AM TRANSIT PLANNING MANAGER BILL TO IRB study# [id number]. BILL TO IRB study# [id number]. us Jenny Schreiber NP LAB BLOOD ORDERABLES Final Result [facility] Department [place] [address] * CBC with auto differential (03/26/2022 8:34 AM TRANSIT PLANNING MANAGER) WBC 6.1 3.8 - 9.9 K/cumm [facility] Hgb 13.5 11.9 - 15.5 g/dL [facility] Hct 40.8 35.6 - 45.5 % [facility] Plt 280 150 - 400 K/cumm [facility] MPV 10.4 9.1 - 12.3 fL [facility] RBC 4.53 3.90 - 5.20 M/cumm [facility] MCV 90.1 81.3 - 96.4 fL [facility] MCH 29.8 27.1 - 33.3 pg [facility] MCHC 33.1 32.3 - 35.7 g/dL [facility] RDW CV 12.9 11.1 - 14.9 % [facility] RDW SD 42.5 35.7 - 48.1 fL [facility] NRBC abs 0.00 0.00 - 0.01 K/cumm [facility] Blood 03/26/2022 8:34 AM TRANSIT PLANNING MANAGER 03/26/2022 9:00 AM TRANSIT PLANNING MANAGER Narrative [facility] - 03/26/2022 9:16 AM TRANSIT PLANNING MANAGER BILL TO IRB study# [id number]. BILL TO IRB study# [id number]. us Jenny Schreiber NP LAB BLOOD ORDERABLES Final Result [facility] Department [place] [address] * aPTT (03/26/2022 8:34 AM TRANSIT PLANNING MANAGER) aPTT 37 27 - 37 sec [facility] Comment: Interpretive Data Therapeutic heparin range: 60.0 - 94.0 seconds. Based on correlation with therapeutic heparin activity range of 0.3-0.7 Units/mL. Current interpretive data was last revised on 2020. Blood 03/26/2022 8:34 AM TRANSIT PLANNING MANAGER 03/26/2022 9:00 AM TRANSIT PLANNING MANAGER Narrative [facility] - 03/26/2022 9:29 AM TRANSIT PLANNING MANAGER BILL TO IRB study# [id number]. BILL TO IRB study# [id number]. us Jenny Schreiber NP LAB BLOOD ORDERABLES Final Result Performing Organization Address City/[facility] Co de Phone Number [facility] [place] [address] * ECG 12 lead (03/24/2022 3:25 PM TRANSIT PLANNING MANAGER) Ventricular Rate EKG/Min 57 BPM [facility] Atrial Rate 57 BPM [facility] VA-Interval (MSEC) 150 ms [facility] QRS-Interval (MSEC) 84 ms [facility] QT-Interval (MSEC) 424 ms [facility] QTc 412 ms [facility] P [place] 46 degrees [facility] R [place] 5 degrees [facility] T [place] -1 degrees [facility] Diagnosis Sinus bradycardia Cannot rule out Anterior infarct , age undetermined Abnormal ECG No previous ECGs available Confirmed by ELVIN ROSAS M.D ([id number]) on 03/26/2022 9:31:[address] [facility] 03/24/2022 3:25 PM TRANSIT PLANNING MANAGER 03/26/2022 9:31 AM TRANSIT PLANNING MANAGER us Jenny Schreiber NP ECG ORDERABLES Final Resul t Performing Organization Address City/[facility] Co de Phone Number [facility] documented in this encounter Visit Diagnoses Diagnosis Research study patient- Primary Research study patient Research study patient documented in this encounter Discontinued Medications Medication Sig Discontinue Reason Start Date End Da te traMADol (ULTRAM) 50 mg tablet Take 1-2 tablets (50-100 mg total) by mouth every 6 (six) hours as needed for pain (1 tablet for mild to moderate pain or 2 tablets for severe pain). 01/30/2018 03/24/2022 documented as of this encounter Historical Medications * This list may reflect changes made after this encounter. propranoloL (INDERAL) 10 mg tablet TAKE 1 TABLET BY MOUTH THREE TIMES A DAY NEEDED FOR ANXIETY 12/24/2020 cetirizine (ZyrTEC) 10 mg tablet Take 1 tablet (10 mg total) by mouth daily 03/24/2012 fluticasone propionate (FLONASE) 50 mcg/actuation nasal spray Administer 2 sprays into affected nostril(s) daily 11/09/2018 3 FLUoxetine (PROzac) 20 mg capsule Take 1 tablet by mouth daily 11/11/2020 3 estrogens-methyl TESTOSTERone (EEMT,COVARYX) 0.625-1.25 mg per tablet Take by mouth 04/13/2018 3 added in this encounter Care Teams Cripple Worker Relationship Specialty Start Date End Date Melonie Ochoa MD PCP - General 01/30/18 04/07/23 documented as of this encounter
--- OUTSIDE RECORDS SUMMARY | 2024-04-11 00:54 | XMS_ITS | Encounter Summary ---
Author Organization [facility] Healthcare Address [address] [place] [address] Care Team Providers Care Groundman/Lineman Name Role Phone Melonie Ochoa MD Primary Care Provider Edna Yoder MD Primary Care Provider [phone] Reason for Visit * Reason Onset Date Comments Scheduling Appointments 10/06/2019 Called f or DEXA appointment Encounter Details Date Type Department Care Team (Late st Contact Info) Description 10/06/2019 Telephone [facility] [address] [place] [id number] Pam Yoder RT Scheduling Appointments (Called for DEXA appointment ) Social History Tobacco Use Types Packs/Day Years Used Date Smoking Tobacco: Never Smokeless Tobacco: Never Comments No Sex and Gender Information Value Date Recorded Sex Assigned at Not on file Legal Sex Female 12:[address] THRU ORDER TAKER Gender Identity Female 03/17/2022 5:[address] THRU ORDER TAKER Sexual Orientation Not on file documented as of this encounter Plan of Treatment Not on file documented as of this encounter Visit Diagnoses Not on filedocumented in this encounter Care Teams Groundman/Lineman Relationship Specialty Start Date End Date Melonie Ochoa MD PCP - General 01/30/18 04/07/23 Edna Yoder MD [employer] [place] [address] PCP - General Internal Medicine 04/08/23 documented as of this encounter
--- OUTSIDE RECORDS SUMMARY | 2024-04-11 00:54 | XMS_ITS | Encounter Summary ---
Author Organization [facility] Address [address] [place] [address] Phone Care Team Providers Care Office Communication Professor Name Role Phone Melonie Ochoa MD Primary Care Provider [phone] Encounter Details Date Type Department Care Team (Late st Contact Info) Description 04/23/2022 8:00 AM TORTILLA MAKER Office Visit [facility] Gastroenterology [facility] 12th [place] [address] [place] [address] Jenny Schreiber NP [address] [place] [address] Research study patient (Primary Dx) Social History Tobacco Use Types Packs/Day Years Used Date Smoking Tobacco: Never Smokeless Tobacco: Never Comments No Sex and Gender Information Value Date Recorded Sex Assigned at Not on file Legal Sex Female 12:45 AM TORTILLA MAKER Gender Identity Female 03/17/2022 5:30 PM TORTILLA MAKER Sexual Orientation Not on file documented as of this encounter Ordered Prescriptions Prescription Sig Dispense Quantity Refills Last Filled Start Date End Date omeprazole (PriLOSEC) 40 mg capsuleIndications :Treatment of Non-Bleeding Gastric Disorder Take 1 capsule (40 mg total) by mouth daily before breakfast Start 7 days before Day 0 10 capsule 04/23/2022 3 documented in this encounter Progress Notes * Jenny Schreiber NP - 04/23/2022 8:00 AM CST NAME: Airam Munoz : 1980 DOS: 04/23/2022 Baseline visit today She completed the questionnaires. We dicussed the PPI and to start 7 days prior to day 0 which is TBD. New Medications Ordered This Visit omeprazole (PriLOSEC) 40 mg capsule Sig: Take 1 capsule (40 mg total) by mouth daily before breakfast Start 7 days before Day 0 Dispense: 10 capsule Refill: 0 BILL TO IRB study# [id number]. ILLA MAKER documented in this encounter Plan of Treatment Not on file documented as of this encounter Visit Diagnoses Diagnosis Research study patient- Primary documented in this encounter Care Teams Office Communication Professor Relationship Specialty Start Date End Date Melonie Ochoa MD PCP - General 01/30/18 04/07/23 documented as of this encounter
--- OUTSIDE RECORDS SUMMARY | 2024-04-11 00:54 | XMS_ITS | Encounter Summary ---
Author Organization [facility] Address [address] [place] [address] Care Team Providers Care Military Science Teacher Name Role Phone Melonie Ochoa MD Primary Care Provider [phone] Reason for Referral * Diagnostic Imaging (Routine) - Closed Specialty Diagnoses / Procedures Referred By Yanni weaver Referred To Contact Diagnoses Encounter for screening mammogram for malignant neoplasm of breast Procedures Screening Mammogram Bilateral [place] Screening Mammogram, Self [address] [address] Referral ID Status Reason Start Date Expiration Date Visits Re quested Visits Authorized [id number] Closed 09/26/2020 10/26/2021 1 1 Reason for Visit * Diagnostic Imaging (Routine) - Closed Specialty Diagnoses / Procedures Referred By Yanni weaver Referred To Contact Diagnoses Encounter for screening mammogram for malignant neoplasm of breast Procedures Screening Mammogram Bilateral [place] Screening Mammogram, Self [address] [address] Referral ID Status Reason Start Date Expiration Date Visits Re quested Visits Authorized [id number] Closed 09/26/2020 10/26/2021 1 1 Encounter Details Date Type Department Care Team (Latest Contact Info) Description 10/12/2020 8:21 AM CDT - 10/12/2020 9:15 AM CDT Hospital Encounter [facility] [address] [place] [address] Screening Mammogram, Self Encounter for screening mammogram for malignant neoplasm of breast Discharge Disposition: Discharge to home or self care Social History Tobacco Use Types Packs/Day Years Used Date Smoking Tobacco: Never Smokeless Tobacco: Never Comments No Sex and Gender Information Value Date Recorded Sex Assigned at Not on file Legal Sex Female 12:45 AM METAL SOLDERER Gender Identity Female 03/17/2022 5:30 PM METAL SOLDERER Sexual Orientation Not on file documented as [...] PM CDT EXAMINATION: SCREENING MAMMOGRAM BILATERAL [place] ORDERING HEALTHCARE PROVIDER: SELF SCREENING MAMMOGRAM HISTORY: [...] Mammogram IMG MAMMO PROCEDURES Fi nal Result documented in this encounter Visit Diagnoses Diagnosis Encounter for screening mammogram for malignant neoplasm of breast documented in this encounter Care Teams Military Science Teacher Relationship Specialty Start Date End Date Melonie Ochoa MD PCP - General 01/30/18 04/07/23 documented as of this encounter
--- OUTSIDE RECORDS SUMMARY | 2024-04-11 00:54 | XMS_ITS | Encounter Summary ---
Author Organization [facility] Healthcare Address [address] [place] [address] Care Team Providers Care Ice Delivery Driver Name Role Phone Melonie Ochoa MD Primary Care Provider Reason for Referral * Diagnostic Imaging (Routine) - Closed Specialty Diagnoses / Procedures Referred By Contac t Referred To Contact Diagnoses Menopausal and female climacteric states Procedures Dexa Axial Skeleton Bone Density 1 or 2 Site Ravi Leon MD [address] [place] [address] Phone: tel: fax: [address] [phone] Referral ID Status Reason Start Date Expiration Date Visits Re quested Visits Authorized [id number] Closed 10/06/2019 04/16/2021 1 1 Reason for Visit * Diagnostic Imaging (Routine) - Closed Specialty Diagnoses / Procedures Referred By Contac t Referred To Contact Diagnoses Menopausal and female climacteric states Procedures Dexa Axial Skeleton Bone Density 1 or 2 Site Ravi Leon MD [address] [address] Phone: tel: fax: [address] [phone] Referral ID Status Reason Start Date Expiration Date Visits Re quested Visits Authorized [id number] Closed 10/06/2019 04/16/2021 1 1 Encounter Details Date Type Department Care Team (Latest Contact Info) Description 10/07/2019 8:17 AM CDT - 10/07/2019 11:59 PM CDT Hospital Encounter [facility] [address] [place] [address] Ravi Leon MD [address] [place] [address] Menopausal and female climacteric states Discharge Disposition: Discharge to home or self care Social History Tobacco Use Types Packs/Day Years Used Date Smoking Tobacco: Never Smokeless Tobacco: Never Comments No Sex and Gender Information Value Date Recorded Sex Assigned at Not on file Legal 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 Gender Identity Female 03/17/2022 5:30 PM FURNITURE MAKER Sexual Orientation Not on file documented [...] Procedure Name Priority Date/Time Associated Diagnosis Comments DEXA AXIAL SKELETON BONE DENSITY 1 OR MORE SITES Schedule Routine, Read Routine (OP Routine) 10/07/2019 9:02 AM CDT Menopausal and female climacteric states documented in this encounter Results * Dexa Axial Skeleton Bone Density 1 or 2 Site (10/07/2019 9:02 AM CDT) Anatomical Region Laterality Modality Body N/A Other 10/07/2019 9:10 AM CDT Impressions 10/07/2019 9:11 AM CDT According to the World Health Organization criteria, based upon the lumbar spine bone mineral density (T score value of -1.0), the patient has normal bone mineralization. General Recommendations: ?? 1. Consider an evaluation for secondary causes of osteoporosis in patients with low bone density. ?? 2. All patients should be counseled on adequate intake of calcium (1200 mg/day), vitamin D (600-800 IU daily) and exercise. ?? 3. The National Osteoporosis Foundation (NOF) guidelines recommend initiating pharmacological therapy, in addition to calcium, vitamin D and exercise, to reduce fracture risk when: ?? a. T-score less than or equal to -2.5 after secondary causes excluded. ?? b. T-score between -1.0 and -2.5 with secondary causes associated with high risk of fracture. ?? c. 10-year probability of hip fracture more than or equal to 3% (based on FRAX score). ?? d. 10-year probability of major osteoporosis related fracture more than or equal to 20% (based on FRAX score). ?? Followup: ?? People with diagnosed cases of osteoporosis or at high risk for fracture should have regular bone mineral density tests. ??For patients eligible for Medicare, routine testing is allowed once every 2 years. The testing frequency can be increased to one year for patients who have rapidly progressive disease or those who are receiving long-term steroid therapy. ?? Electronically signed by: Reggie Julien M.D. Narrative 10/07/2019 9:11 AM CDT COMPLETION DATE: 10/07/2019 9:00 AM ORDERING HEALTHCARE PROVIDER: RAVI LEON STUDY DESCRIPTION: DEXA AXIAL SKELETON BONE DENSITY 1 OR MORE SITES CLINICAL INDICATIONS: N95.1. ??39-year-old postmenopausal female. Hysterectomy, calcium, vitamin D, HRT. COMPARISON: None TECHNIQUE: Dual x-ray absorptiometry (DEXA) was performed using [employer] system. GENERAL GUIDELINES: According to WHO guidelines, a T score of -1.0 or greater is normal, between -1.0 to -2.4 is osteopenia, and -2.5 or less is osteoporosis. Z score (instead of T score) is preferred for pediatric, young adults, premenopausal women and men under age of 50 years. ??In these patients, a Z score greater than or equal to -2.0 is considered to be in the expected range. FINDINGS: LEFT FEMORAL NECK: T-score -0.3 LEFT TOTAL HIP: T-score 0.8 LUMBAR SPINE: T-score -1.0 A FRAX score based upon a DXA study is not reported unless all of the following criteria are met. ??The patient: ?? a. ??Is an untreated postmenopausal woman or a man age 50 or older. ?? b. ??Has low bone mass (T-score between -1.0 and -2.5). ?? c. ??Has no prior hip or vertebral fracture (clinical or morphometric). ?? d. ??Has an evaluable hip for DXA study. ?? Procedure Note Reggie Julien MD - 10/07/2019 COMPLETION DATE: 10/07/2019 9:00 AM ORDERING HEALTHCARE PROVIDER: RAVI LEI DESCRIPTION: DEXA AXIAL SKELETON BONE DENSITY 1 OR MORE SITES CLINICAL INDICATIONS: N95.1. 39-year-old postmenopausal female. Hysterectomy, calcium, vitamin D, HRT. COMPARISON: None TECHNIQUE: Dual x-ray absorptiometry (DEXA) was performed using [employer] system. GENERAL GUIDELINES: According to WHO guidelines, a T score of -1.0 or greater is normal, between -1.0 to -2.4 is osteopenia, and -2.5 or less is osteoporosis. Z score (instead of T score) is preferred for pediatric, young adults, premenopausal women and men under age of 50 years. In these patients, a Z score greater than or equal to -2.0 is considered to be in the expected range. FINDINGS: LEFT FEMORAL NECK: T-score -0.3 LEFT TOTAL HIP: T-score 0.8 LUMBAR SPINE: T-score -1.0 A FRAX score based upon a DXA study is not reported unless all of the following criteria are met. The patient: a. Is an untreated postmenopausal woman or a man age 50 or older. b. Has low bone mass (T-score between -1.0 and -2.5). c. Has no prior hip or vertebral fracture (clinical or morphometric). d. Has an evaluable hip for DXA study. IMPRESSION: According to the World Health Organization criteria, based upon the lumbar spine bone mineral density (T score value of -1.0), the patient has normal bone mineralization. General Recommendations: 1. Consider an evaluation for secondary causes of osteoporosis in patients with low bone density. 2. All patients should be counseled on adequate intake of calcium (1200 mg/day), vitamin D (600-800 IU daily) and exercise. 3. The National Osteoporosis Foundation (NOF) guidelines recommend initiating pharmacological therapy, in addition to calcium, vitamin D and exercise, to reduce fracture risk when: a. T-score less than or equal to -2.5 after secondary causes excluded. b. T-score between -1.0 and -2.5 with secondary causes associated with high risk of fracture. c. 10-year probability of hip fracture more than or equal to 3% (based on FRAX score). d. 10-year probability of major osteoporosis related fracture more than or equal to 20% (based on FRAX score). Followup: People with diagnosed cases of osteoporosis or at high risk for fracture should have regular bone mineral density tests. For patients eligible for Medicare, routine testing is allowed once every 2 years. The testing frequency can be increased to one year for patients who have rapidly progressive disease or those who are receiving long-term steroid therapy. Electronically signed by: Reggie Julien M.D. Ravi Leon MD IM DXA PROCEDURES Final Re sult documented in this encounter Visit Diagnoses Diagnosis Menopausal and female climacteric states documented in this encounter Care Teams Ice Delivery Driver Relationship Specialty Start Date End Date Melonie Ochoa MD PCP - General 01/30/18 04/07/23 documented as of this encounter
--- OUTSIDE RECORDS SUMMARY | 2024-04-11 00:54 | XMS_ITS | Encounter Summary ---
Author Organization [facility] Healthcare Address [address] [place] [address] Care Team Providers Care Store Standards Associate Name Role Phone Natalia Ohcoa MD Primary Care Provider [phone] Reason for Referral * Cardiology (Routine) - Closed Specialty Diagnoses / Procedures Referred By Yanni weaver Referred To Contact Diagnoses Abnormal electrocardiogram (ECG) (EKG) Procedures Stress Treadmill Test Natalia Ochoa MD [address] [place] [address] Phone: tel: fax: [address] [phone] Referral ID Status Reason Start Date Expiration Date Visits Re quested Visits Authorized [id number] Closed 10/01/2020 10/31/2021 1 1 Reason for Visit * Cardiology (Routine) - Closed Specialty Diagnoses / Procedures Referred By Yanni weaver Referred To Contact Diagnoses Abnormal electrocardiogram (ECG) (EKG) Procedures Stress Treadmill Test Natalia Ochoa MD [address] [place] [address] Phone: tel: fax: [address] [phone] Referral ID Status Reason Start Date Expiration Date Visits Re quested Visits Authorized [id number] Closed 10/01/2020 10/31/2021 1 1 Encounter Details Date Type Department Care Team (Latest Contact Info) Description 10/12/2020 9:16 AM CDT - 10/12/2020 11:59 PM CDT Hospital Encounter [facility] [address] [place] [address] Natalia Ochoa MD [address] [place] [address] Abnormal electrocardiogram (ECG) (EKG) Discharge Disposition: Discharge to home or self care Social History Tobacco Use Types Packs/Day Years Used Date Smoking Tobacco: Never Smokeless Tobacco: Never Comments No Sex and Gender Information Value Date Recorded Sex Assigned at Not on file Legal 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 Gender Identity Female 03/17/2022 5:30 PM TRAVELING STOREKEEPER Sexual Orientation Not on file documented as [...] Procedure Name Priority Date/Time Associated Diagnosis Comments STRESS TEST ONLY TREADMILL Routine 10/12/2020 2:49 PM CDT Abnormal electrocardiogram (ECG) (EKG) documented in this encounter Results * Stress Treadmill Test (10/12/2020 2:49 PM CDT) Anatomical Region Laterality Modality Nuclear Medicine 10/12/2020 9:21 AM CDT Narrative 10/12/2020 1:21 PM CDT [address] [place] [address] EXERCISE STRESS Patient Name: AIRAM KISER K : 1980 Study Date: 10/12/2020 09:21:00 Gender: F Tech: edu cuellar Ref.Provider: NATALIA OCHOA Height(Cm): 66 BSA: Weight(Kg): 222Order Provider: NATALIA OCHOA Procedures: Stress Report: Treadmill stress Exam. Indications: Abnormal EKG. Findings: Procedure Data: Exercise Time: 9.32. Resting HR 56 bpm. Peak HR: 153 bpm. Predicted Maximal HR 178 bpm. Target HR: 151 bpm. Percent Max Predicted HR Achieved: 86 %. Baseline BP: 107/130. Peak BP: 143/71. METS achieved: 11. Rate-Pressure Product: 49250 BPM*mmHg. Max ST: Performed By: Edu Cuellar. Resting ECG: Normal sinus rhythm. Post ECG: No diagnostic ST changes. Arrhythmia: No arrhythmias seen. Exercise Capacity: Excellent exercise capacity. Target HR Achieved: Target heart rate was achieved. Reason For Termination: Fatigue. THR achieved. Leg fatigue. Patient request. Conclusions: 1. Adequate stress test in regards to heart rate. 2. No exercise induced chest pain. 3. Maximal exercise ECG that is negative for ischemia. Electronically Signed By: Dr Enrrique Verdin 2020-10-12 13:21:29 CDT Procedure Note Enrrique Verdin, DO - 10/12/[address] [place] [address] EXERCISE STRESS Patient Name: AIRAM KISER KPatient ID: [id number] : [id number] Date: 10/12/2020 09:21:00 Gender: FAccession #: [id number] Tech: edu Muhammad.Provider: NATALIA OCHOA Height(Cm): 66BSA: Weight(Kg): 222Order Provider: NATALIA OCHOA Procedures: Stress Report: Treadmill stress Exam. Indications: Abnormal EKG. Findings: Procedure Data: Exercise Time: 9.32. Resting HR 56 bpm. Peak HR: 153 bpm. PredictedMaximal HR 178 bpm. Target HR: 151 bpm. Percent Max Predicted HR Achieved: 86 %. Baseline BP:107/130. Peak BP: 143/71. METS achieved: 11. Rate-Pressure Product: 30595 BPM*mmHg. MaxST: Performed By: Edu Cuellar. Resting ECG: Normal sinus rhythm. Post ECG: No diagnostic ST changes. Arrhythmia: No arrhythmias seen. Exercise Capacity: Excellent exercise capacity. Target HR Achieved: Target heart rate was achieved. Reason For Termination: Fatigue. THR achieved. Leg fatigue. Patient request. Conclusions: 1. Adequate stress test in regards to heart rate. 2. No exercise induced chest pain. 3. Maximal exercise ECG that is negative for ischemia. Electronically Signed By: Dr Enrrique Verdin 2020-10-12 13:21:29 CDT Natalia Ochoa MD CV STRESS PROCEDURES Final R esult documented in this encounter Visit Diagnoses Diagnosis Abnormal electrocardiogram (ECG) (EKG) documented in this encounter Care Teams Store Standards Associate Relationship Specialty Start Date End Date Natalia Ochoa MD PCP - General 01/30/18 04/07/23 documented as of this encounter
--- OUTSIDE RECORDS SUMMARY | 2024-04-11 00:54 | XMS_ITS | Encounter Summary ---
Author Organization [facility] Healthcare Address [address] [place] [address] Care Team Providers Care Correction Officer Head Name Role Phone Yusef Aleman DO Primary Care Provider Encounter Details Date Type Department Care Team (Late st Contact Info) Description 02/22/2015 3:23 PM GLOBAL CMO - 02/22/2015 5:41 PM GLOBAL CMO Hospital Encounter [facility] Shannan Julien MD [facility] [place] [address] Acute gastritis without bleeding Social History Tobacco Use Types Packs/Day Years Used Date Smoking Tobacco: Never Assessed Comments Unknown Sex and Gender Information Value Date Recorded Sex Assigned at Not on file Legal Sex Female 12:45 AM GLOBAL CMO Gender Identity Female 03/17/2022 5:30 PM GLOBAL CMO Sexual Orientation Not on file documented as of this encounter Medications at Time of Discharge cetirizine (ZyrTEC) 10 mg tablet Take 1 tablet (10 mg total) by mouth daily 03/24/2012 documented as of this encounter Plan of Treatment Not on file documented as of this encounter Procedures Procedure Name Priority Date/Time Associated Diagnosis Comments SERUM LIPASE Routine 02/22/2015 4:22 PM GLOBAL CMO SERUM ESTIMATED GLOMERULAR FILTRATION RATE Routine 02/22/2015 4:22 PM GLOBAL CMO SERUM AMYLASE Routine 02/22/2015 4:22 PM GLOBAL CMO PLASMA COMPREHENSIVE METABOLIC PANEL Routine 02/22/2015 4:22 PM GLOBAL CMO BLOOD CELL COUNT (CBC), MORPHOLOGIC EXAM Routine 02/22/2015 4:22 PM GLOBAL CMO BLOOD CELL MORPHOLOGIC EXAM Routine 02/22/2015 4:22 PM GLOBAL CMO URINE (AEROBIC) CULTURE, CDR Routine 02/22/2015 4:00 PM GLOBAL CMO URINE MICROSCOPY Routine 02/22/2015 4:00 PM GLOBAL CMO URINALYSIS Routine 02/22/2015 4:00 PM GLOBAL CMO DISCHARGE LABORATORY CUMULATIVE REPORT 02/22/2015 documented in this encounter Results * (ABNORMAL) Plasma comprehensive metabolic panel (02/22/2015 4:22 PM GLOBAL CMO) Sodium 141 135 - 145 mmol/L HISTORICAL RESULTS K, pl 4.0 3.5 - 5.1 mmol/L HISTORICAL RESULTS Chloride 101 97 - 110 mmol/L HISTORICAL RESULTS CO2 24 22 - 32 mmol/L HISTORICAL RESULTS A. gap 20(H) 8 - 16 mmol/L HISTORICAL RESULTS Glucose 94 70 - 199 mg/dl HISTORICAL RESULTS Comment: Interpretive Data Note:The glucose is assumed non fasting Fastin-99 mg/dL Random: ??70-199 mg/dL Either a fasting glucose > 126 mg/dL or a random glucose > 200 mg/dL plus symptoms is diagnostic of diabetes when confirmed on another day. Fasting values > 100 mg/dL but < 125 mg/dL are diagnostic of impaired fasting glucose. Current interpretive data was last revised on 2014. BUN 11.1 8.0 - 25.0 mg/dl HISTORICAL RESULTS Creatinine 0.58(L) 0.60 - 1.10 mg/dl HISTORICAL RESULTS BUN/creat ratio 19 10 - 20 HIST ORICAL RESULTS Calcium 9.9 8.6 - 10.2 mg/dl HISTORICAL RESULTS Protein, sr 8.0 6.0 - 8.4 g/dl HISTORICAL RESULTS Alb 3.9 3.6 - 5.0 g/dl HISTORICAL RESULTS Alb/glob ratio 1.0(L) 1.1 - 1.8 ratio HISTORICAL RESULTS Alk phos 21(L) 40 - 130 Units/L HISTORICAL RESULTS ALT 18 5 - 45 Units/L HISTORICAL RESULTS AST 18 10 - 40 Units/L HISTORICAL RESULTS Bilirubin 0.2 <=1.2 mg/dl HISTORICAL RESULTS Plasma 02/22/2015 4:22 PM GLOBAL CMO Result [facility] Historical Provider MD LAB BLOOD ORDERABLES Wendy l Result Performing Organization Address City/[facility] Co de Phone Number HISTORICAL RESULTS * Serum lipase (02/22/2015 4:22 PM GLOBAL CMO) Lip 23 10 - 70 Units/L HISTORICAL RESULTS Serum 02/22/2015 4:22 PM GLOBAL CMO Result [facility] Provider MD LAB BLOOD ORDERABLES Wendy l Result Performing Organization Address [facility] de Phone Number HISTORICAL RESULTS * Serum amylase (02/22/2015 4:22 PM GLOBAL CMO) Hilaria, pl 73 30 - 100 Units/L HISTORICAL RESULTS Serum 02/22/2015 4:22 PM GLOBAL CMO Result [facility] Provider MD LAB BLOOD ORDERABLES Wendy l Result Performing Organization Address [facility] de Phone Number HISTORICAL RESULTS * Blood cell morphologic exam (02/22/2015 4:22 PM GLOBAL CMO) Neutrophils 65.2 44.0 - 80.0 % HISTORICAL RESULTS Immature granulocytes 0.3 0.0 - 1.0 % HISTORICAL RESULTS Lymphocytes 22.7 13.0 - 44.0 % HISTORICAL RESULTS Monos 9.8 2.0 - 11.0 % HISTORICAL RESULTS Eosinophils 1.7 0.0 - 6.0 % HISTORICAL RESULTS Basophils 0.3 0.0 - 3.0 % HISTORICAL RESULTS Neutrophils, abs 6.4 1.6 - 7.0 K/cumm HISTORICAL RESULTS Immature granulocyte, abs 0.03 0.00 - 0.20 K/cumm HISTORICAL RESULTS Lymphocytes, abs 2.2 0.5 - 4.3 K/cumm HISTORICAL RESULTS Monocytes, absolute 1.0 0.1 - 1.0 K/cumm HISTORICAL RESULTS Eosinophils, abs 0.2 0.0 - 0.6 K/cumm HISTORICAL RESULTS Basophils, abs 0.0 0.0 - 0.3 K/cumm HISTORICAL RESULTS Blood specimen (specimen) 02/22/2015 4:22 PM GLOBAL CMO Historical Provider LAB BLOOD ORDERABLES Wendy fior Result Performing Organization Address [facility] Co de Phone Number HISTORICAL RESULTS * (ABNORMAL) Blood cell count (CBC), morphologic exam (02/22/2015 4:22 PM GLOBAL CMO) WBC 9.8(H) 3.8 - 9.8 K/cumm HISTORICAL RESULTS RBC 4.01 3.90 - 5.00 M/cumm HISTORICAL RESULTS Hgb 12.0(L) 12.1 - 15.1 g/dl HISTORICAL RESULTS Hct 35.3(L) 36.1 - 44.3 % HISTORICAL RESULTS MCV 88.0 80.0 - 100.0 fl HISTORICAL RESULTS MCH 29.9 26.7 - 33.7 pg HISTORICAL RESULTS MCHC 34.0 32.7 - 36.0 g/dl HISTORICAL RESULTS Rdw 12.0 11.5 - 14.6 % HISTORICAL RESULTS Platelets 346 140 - 440 K/cumm HISTORICAL RESULTS MPV 9.5 8.0 - 12.0 fl HISTORICAL RESULTS NRBC 0.0 0.0 - 0.0 % HISTORIC AL RESULTS NRBC, abs 0.00 0.00 - 0.00 K/cumm HISTORICAL RESULTS Blood specimen (specimen) 02/22/2015 4:22 PM GLOBAL CMO Historical Provider LAB BLOOD ORDERABLES Wendy l Result HISTORICAL RESULTS * Serum estimated glomerular filtration rate (02/22/2015 4:22 PM GLOBAL CMO) eGFR >60 ml/min/1.7 3 m2 HISTORICAL RESULTS Comment: Interpretation of Estimated GFR (eGFR): Normal ?>/= 60 mL/min/1.73m2 Possible Chronic Kidney Disease ??15 - 59 mL/min/1.73m2 Possible Kidney Failure ?< 15 ??mL/min/1.73m2 If -Greek multiply value by 1.16. ??Estimated glomerular filtration rate is determined by the CKD-EPI equation recommended by the National Kidney Foundation (KDIGO 2012 Clinical Practice Guideline for the Evaluation and Management of Chronic Kidney Disease. ??Kidney Intnl Suppl Apr 2012;3:1). ??The CKD-EPI equation should not be used in acute renal failure or acute kidney injury and is not valid in children. Serum 02/22/2015 4:22 PM GLOBAL CMO us Historical Provider LAB BLOOD ORDERABLES Wendy l Result HISTORICAL RESULTS * Urine (aerobic) culture (02/22/2015 4:00 PM GLOBAL CMO) Urine, clean voided (Unknown) 02/22/2015 4:00 PM GLOBAL CMO Narrative HISTORICAL RESULTS - 02/24/2015 6:16 AM GLOBAL CMO 50,000 to 100,000 colonies/ml of Multiple Gram Positive organisms Routine susceptibility testing not performed. us Historical Provider LAB MICROBIOLOGY - GENERA L ORDERABLES Final Result HISTORICAL RESULTS * (ABNORMAL) Urinalysis (02/22/2015 4:00 PM GLOBAL CMO) Color, ur Yellow Yellow HISTORICAL RESULTS Clarity, ur Clear Clear HISTORIC AL RESULTS Specific gravity, ur 1.013 1.003 - 1.030 HISTORICAL RESULTS Comment:Normal Ranges: 1.003 -1.030 pH, ur 6.5 4.5 - 8.0 HISTORICAL RESULTS Comment:Normal ranges: 4.5-8 .0 Protein, ur, quant Negative Negative mg/dl HISTORICAL RESULTS Glucose, ur, quant Negative Negative mg/dl HISTORICAL RESULTS Ketones, ur Negative Negative HISTORIC AL RESULTS Bilirubin, ur Negative Negative HISTOR ICAL RESULTS U Blood Small(A) Negative HISTORICAL RESULTS Urobilinogen, quant, ur 0.2 0.2 - 1.0 Sarah Units/dl HISTORICAL RESULTS Comment:Normal Ranges: 0.2-1 .0 EU/dL Nitrites, ur Negative Negative HISTORI DEEPAK RESULTS Leukocyte esterase, ur Small(A) Negative HISTORICAL RESULTS Urine 02/22/2015 4:00 PM GLOBAL CMO Result [facility] Provider MD LAB BLOOD ORDERABLES Wendy l Result HISTORICAL RESULTS * (ABNORMAL) Urine microscopy (02/22/2015 4:00 PM GLOBAL CMO) RBC, ur 5 - 10(A) 0 - 2 /hpf HISTORICA L RESULTS WBC, ur 10 - 25(A) 0 - 2 /hpf HISTORIC AL RESULTS Bacteria, ur Negative Negative HISTORI DEEPAK RESULTS Hyaline casts Not Seen 0 - 2 HISTOR ICAL RESULTS Epithelial cells, ur 2 - 5(A) 0 - 2 /hpf HISTORICAL RESULTS Urine 02/22/2015 4:00 PM GLOBAL CMO Result [facility] Provider MD LAB BLOOD ORDERABLES Wendy l Result Performing Organization Address City/[facility]/ZIP Co de Phone Number HISTORICAL RESULTS * DISCHARGE LABORATORY CUMULATIVE REPORT (02/22/2015) Narrative 02/22/2015 Ordered by an unspecified provider. Result [facility] Provider MD LAB BLOOD ORDERABLES Wendy l Result documented in this encounter Visit Diagnoses Diagnosis Acute gastritis without bleeding documented in this encounter Care Teams Correction Officer Head Relationship Specialty Start Date End Date Yusef Aleman DO [address] [address] PCP - General 03/26/09 01/29/18 documented as of this encounter
--- OUTSIDE RECORDS SUMMARY | 2024-04-11 00:54 | XMS_ITS | Encounter Summary ---
Author Organization [facility] Healthcare Address [address] [place] [address] Care Team Providers Care Textile Screen Printer Name Role Phone Yusef Aleman DO Primary Care Provider [phone] Encounter Details Date Type Department Care Team (Late st Contact Info) Description 09/23/2014 9:31 AM CDT - 09/23/2014 11:59 PM CDT Hospital Encounter [facility] Vincent Hood MD [address] [facility] [address] [place] [address] Other disorders of menstruation and other abnormal bleeding from female genital tract Social History Tobacco Use Types Packs/Day Years Used Date Smoking Tobacco: Never Assessed Comments Unknown Sex and Gender Information Value Date Recorded Sex Assigned at Not on file Legal Sex Female 12:45 AM PET WALKER Gender Identity Female 03/17/2022 5:30 PM PET WALKER Sexual Orientation Not on file documented as of this encounter Medications at Time of Discharge cetirizine (ZyrTEC) 10 mg tablet Take 1 tablet (10 mg total) by mouth daily 03/24/2012 documented as of this encounter Plan of Treatment Not on file documented as of this encounter Procedures Procedure Name Priority Date/Time Associated Diagnosis Comments US PELVIS COMPLETE Routine 09/23/2014 10 :33 AM CDT documented in this encounter Results * US Pelvis Complete (09/23/2014 10:33 AM CDT) Anatomical Region Laterality Modality Pelvis N/A Ultrasound 09/23/2014 10:3 3 AM CDT Narrative 09/23/2014 12:09 PM CDT Mr VELAZQUEZ Pelvis ??Acc#: ??[id number] US Transvaginal ??Acc#: ??[id number] DATE OF EXAM: ??Sep 23 2014 CLINICAL HISTORY: Dysfunctional uterine bleeding. RESULT: Transabdominal and transvaginal scanning was performed. ??The uterus measures 8.6 x 3.4 x 4.4cm and appears normal. ??The endometrial complex is normal at 3mm. The right ovary measures 3.8 x 3.5 x 2.6cm and is normal. ??The left ovary measures 2.8 x 2.2 x 2.6cm and is normal. ??There is no evidence of adnexal mass or free fluid. IMPRESSION: NORMAL PELVIC SONOGRAM. Interpreting Physician: ??DR LINWOOD CARRENO M.D. ??Read on: ??Sep 23 2014 11:16A Transcribed by: ??mrr ??On: Sep 23 2014 11:16A Approved Electronically by: ??EV Bourne, DR PALUMBO ??on: ??Sep 23 2014 12:09P Attending: ??VINCENT HOOD Requesting: ??VINCENT HOOD Requesting Fax: ??-- Attending Fax: ??-- Attending ID: ??[id number] Requesting ID: ??[id number] Report To 1 ID: ??[id number] Report To 1 Name: ??VINCENT HOOD Report To 1 FAX: ??-- NextGen Order #: Procedure Note Provider, MD Brian - 08/13/2016 Mr VELAZQUEZ Pelvis Acc#: [id number] US Transvaginal Acc#: [id number] DATE OF EXAM: Sep 23 2014 CLINICAL HISTORY: Dysfunctional uterine bleeding. RESULT: Transabdominal and transvaginal scanning was performed. The uterusmeasures 8.6 x 3.4 x 4.4cm and appears normal. The endometrial complex isnormal at 3mm. The right ovary measures 3.8 x 3.5 x 2.6cm and is normal.The left ovary measures 2.8 x 2.2 x 2.6cm and is normal. There is noevidence of adnexal mass or free fluid. IMPRESSION: NORMAL PELVIC SONOGRAM. Interpreting Physician: DR LINWOOD CARRENO M.D. Read on: Sep 23 201411:16A Transcribed by: calvin On: Sep 23 2014 11:16A Approved Electronically by: EV Bourne, DR PALUMBO on: Sep 23 201412:09P Attending: VINCENT HOOD Requesting: VINCENT HOOD Requesting Fax: -- Attending Fax: -- Attending ID: [id number] Requesting ID: [id number] Report To 1 ID: [id number] Report To 1 Name: VINCENT HOOD Report To 1 FAX: -- NextGen Order #: us Historical Provider MD ARAIZA US PROCEDURES Final R esult documented in this encounter Visit Diagnoses Diagnosis Other disorders of menstruation and other abnormal bleeding from female genital tract documented in this encounter Care Teams Textile Screen Printer Relationship Specialty Start Date End Date Yusef Aleman DO [address] [address] PCP - General 03/26/09 01/29/18 documented as of this encounter
--- OUTSIDE RECORDS SUMMARY | 2024-04-11 00:54 | XMS_ITS | Encounter Summary ---
Author Organization [facility] Healthcare Address [address] [place] [address] Care Team Providers Care Forensic Economist Name Role Phone Melonie Ochoa MD Primary Care Provider Reason for Visit * Diagnostic Imaging (Routine) - Closed Specialty Diagnoses / Procedures Referred By Contac t Referred To Contact Diagnoses Research study patient Procedures FL Esophagram, Double Contrast FL Esophagram, Single Contrast Jenny [facility]reiber NP [address] [facility] [address] [place] [address] Phone: tel: fax: [facility] Referral ID Status Reason Start Date Expiration Date Visits Re quested Visits Authorized [id number] Closed 03/24/2022 04/23/2023 1 1 Encounter Details Date Type Department Care Team (Latest Contact Info) Description 03/26/2022 7:10 AM GEAR SHAPER - 03/26/2022 11:59 PM GEAR SHAPER Hospital Encounter [facility] [address] [place] [address] Research study patient Discharge Disposition: Discharge to home or self care Social History Tobacco Use Types Packs/Day Years Used Date Smoking Tobacco: Never Smokeless Tobacco: Never Comments No Sex and Gender Information Value Date Recorded Sex Assigned at Not on file Legal Sex Female 12:45 AM GEAR SHAPER Gender Identity Female 03/17/2022 5:30 PM GEAR SHAPER Sexual Orientation Not on file documented as [...] Procedure Name Priority Date/Time Associated Diagnosis Comments FL ESOPHAGRAM, DOUBLE CONTRAST Schedule Routine, Read Routine (OP Routine) 03/26/2022 8:32 AM GEAR SHAPER Research study patient documented in this encounter Results * FL Esophagram, Double Contrast (03/26/2022 8:32 AM GEAR SHAPER) Anatomical Region Laterality Modality Body N/A Radio Fluoroscop y 03/26/2022 8:34 AM GEAR SHAPER Impressions 03/26/2022 8:35 AM GEAR SHAPER Tiny hiatal hernia. ??Otherwise normal esophagram. Dictated by: Beni Lima M.D. The radiology attending physician has personally reviewed this study, and had reviewed and/or edited this written report and agrees with it. Electronically signed by: Denilson Maloney M.D. Narrative 03/26/2022 8:35 AM GEAR SHAPER EXAMINATION: DOUBLE CONTRAST BARIUM ESOPHAGRAM HISTORY: Research study TECHNIQUE: The patient was given barium and effervescent crystals to drink, and multiple fluoroscopic and conventional overhead radiographs were obtained. FINDINGS: The patient's swallowing function is normal. The esophageal mucosa is normal without fold abnormalities or masses. The esophageal motility is normal. There is passage of contrast through a normal gastroesophageal junction. There is a tiny hiatal hernia The visualized portions of the stomach are normal. No reflux was elicited with provocative maneuvers. Procedure Note Denilson Maloney MD - 03/26/2022 EXAMINATION: DOUBLE CONTRAST BARIUM ESOPHAGRAM HISTORY: Research study TECHNIQUE: The patient was given barium and effervescent crystals to drink, and multiple fluoroscopic and conventional overhead radiographs were obtained. FINDINGS: The patient's swallowing function is normal. The esophageal mucosa is normal without fold abnormalities or masses. The esophageal motility is normal. There is passage of contrast through a normal gastroesophageal junction. There is a tiny hiatal hernia The visualized portions of the stomach are normal. No reflux was elicited with provocative maneuvers. IMPRESSION: Tiny hiatal hernia. Otherwise normal esophagram. Dictated by: Beni Lima M.D. The radiology attending physician has personally reviewed this study, and had reviewed and/or edited this written report and agrees with it. Electronically signed by: Denilson Maloney M.D. Jenny Schreiber NP IM FLUOROSCOPY PROCEDURES Final Result documented in this encounter Visit Diagnoses Diagnosis Research study patient documented in this encounter Administered Medications Inactive Administered Medications - up to 3 most recent administrations Medication Order MAR Action Action Date Dose Rate Site barium sulfate (E-Z-HD) 98 % suspension 135 mL 135 mL, oral, Once in imaging, contrast, Starting on Thu03/26/22 at 0829, For 1 dose, Pre-Op/Floor Contrast Given 03/26/2022 8:30 AM GEAR SHAPER 90 mL barium sulfate (E-Z-PAQUE) 96 % (w/w) suspension 1 Bottle 1 Bottle, oral, Once in imaging, contrast, Starting on Thu03/26/22 at 0829, For 1 dose, Pre-Op/Floor Contrast Given 03/26/2022 8:31 AM GEAR SHAPER 1 Bottle barium sulfate (E-Z-PAQUE) 96 % (w/w) suspension 1 Bottle 1 Bottle, oral, Once in imaging, contrast, Starting on Thu03/26/22 at 0831, For 1 dose, Pre-Op/Floor Contrast Given 03/26/2022 8:32 AM GEAR SHAPER 1 Bottle sod bicarbonate-citric acid-simethicone (E-Z GAS) (EZ-GAS II) effervescent granules 1 packet 1 packet, oral, Once in imaging, contrast, Starting on Thu03/26/22 at 0829, For 1 dose, Pre-Op/Floor Given 03/26/2022 8:30 AM GEAR SHAPER 1 packet documented in this encounter Care Teams Forensic Economist Relationship Specialty Start Date End Date Melonie Ochoa MD PCP - General 01/30/18 04/07/23 documented as of this encounter
--- OUTSIDE RECORDS SUMMARY | 2024-04-11 00:54 | XMS_ITS | Encounter Summary ---
Author Organization [facility] Address [address] [place] [address] Phone Care Team Providers Care Dock Attendant Name Role Phone Melonie Ochoa MD Primary Care Provider Encounter Details Date Type Department Care Team (Late st Contact Info) Description 04/25/2022 Orders Only [facility] Complete Care [facility] Medical Office [address], [address] [place] [address] Jenny Schreiber, [place] [address] [place] [address] Research study patient (Primary Dx) Social History Tobacco Use Types Packs/Day Years Used Date Smoking Tobacco: Never Smokeless Tobacco: Never Comments No Sex and Gender Information Value Date Recorded Sex Assigned at Not on file Legal Sex Female 12:45 AM EXPERIENCE DESIGNER Gender Identity Female 03/17/2022 5:30 PM EXPERIENCE DESIGNER Sexual Orientation Not on file documented as of this encounter Ordered Prescriptions Prescription Sig Dispense Quantity Refills Last Filled Start Date End Date ondansetron ODT (ZOFRAN-ODT) 8 mg disintegrating tabletIndications:Pr evention of Post-Operative Nausea and Vomiting Take 1 tablet (8 mg total) by mouth every 8 (eight) hours for 7 days Take for 3-7 days, following capsule swallow 30 tablet 2 04/25/2022 3 omeprazole (PriLOSEC) 40 mg capsuleIndications:T reatment of Non-Bleeding Gastric Disorder Take 1 capsule (40 mg total) by mouth daily before breakfast Start 7 days before Day 0 90 capsule 3 04/25/2022 3 hyoscyamine (LEVSIN) 0.125 mg tabletIndications:Ur inary Incontinence Take 1 tablet (0.125 mg total) by mouth every 4 (four) hours as needed for cramping for up to 7 days Take for 3-7 days following balloon swallow. 42 tablet 1 04/25/2022 3 netupitant-palonoset aurora (Akynzeo, netupitant,) 300-0.5 mg capsuleIndications:R esearch study patient Take 1 capsule by mouth once for 1 dose 2 hours prior to balloon swallow 1 capsule 1 04/25/2022 3 documented in this encounter Plan of Treatment Not on file documented as of this encounter Visit Diagnoses Diagnosis Research study patient- Primary documented in this encounter Orders Case Request Count Last Ordered Date First Orde red Date CASE REQUEST GI 1 04/25/2022 documented in this encounter Care Teams Dock Attendant Relationship Specialty Start Date End Date Melonie Ochoa MD PCP - General 01/30/18 04/07/23 documented as of this encounter
--- OUTSIDE RECORDS SUMMARY | 2024-04-11 00:55 | XMS_ITS | Encounter Summary ---
Author Organization [facility] Healthcare Address [address] [place] [address] Care Team Providers Care Executive Vice President And Chief Operating Officer Name Role Phone Unavailable Primary Care Provider Unavailabl e Encounter Details Date Type Department Care Team (Late st Contact Info) Description 10/23/2006 4:08 PM CDT - 10/23/2006 11:59 PM CDT Hospital Encounter [facility] Social History Tobacco Use Types Packs/Day Years Used Date Smoking Tobacco: Never Assessed Comments Unknown Sex and Gender Information Value Date Recorded Sex Assigned at Not on file Legal Sex Female 12:45 AM SPORTS BOOK WRITER Gender Identity Female 03/17/2022 5:30 PM SPORTS BOOK WRITER Sexual Orientation Not on file documented as of this encounter Plan of Treatment Not on file documented as of this encounter Visit Diagnoses Not on filedocumented in this encounter
--- OUTSIDE RECORDS SUMMARY | 2024-04-11 00:55 | XMS_ITS | Encounter Summary ---
Author Organization [facility] Healthcare Address [address] [place] [address] Care Team Providers Care Floor Mechanic Name Role Phone Yusef Aleman DO Primary Care Provider [phone] Encounter Details Date Type Department Care Team (Late st Contact Info) Description 03/03/2012 5:22 PM FIBRE COMPOSITE TECHNICIAN - 03/03/2012 10:00 PM FIBRE COMPOSITE TECHNICIAN Hospital Encounter [facility] Judy Banks MD [address] [address] Supervision of normal first Social History Tobacco Use Types Packs/Day Years Used Date Smoking Tobacco: Never Assessed Comments Unknown Sex and Gender Information Value Date Recorded Sex Assigned at Not on file Legal Sex Female 12:45 AM FIBRE COMPOSITE TECHNICIAN Gender Identity Female 03/17/2022 5:30 PM FIBRE COMPOSITE TECHNICIAN Sexual Orientation Not on file documented as of this encounter Plan of Treatment Not on file documented as of this encounter Visit Diagnoses Diagnosis Supervision of normal first documented in this encounter Care Teams Floor Mechanic Relationship Specialty Start Date End Date Yusef Aleman DO [address] [address] PCP - General 03/26/09 01/29/18 documented as of this encounter
--- OUTSIDE RECORDS SUMMARY | 2024-04-11 00:55 | XMS_ITS | Encounter Summary ---
Author Organization [facility] Healthcare Address [address] [place] [address] Care Team Providers Care Screen Room Operator Name Role Phone Yusef Aleman DO Primary Care Provider [phone] Encounter Details Date Type Department Care Team (Late st Contact Info) Description 03/11/2012 12:23 PM MORTAR CARRIER - 03/11/2012 7:45 PM MORTAR CARRIER Hospital Encounter [facility] CLINCON Judy Banks MD [address] [address] Supervision of normal first Social History Tobacco Use Types Packs/Day Years Used Date Smoking Tobacco: Never Assessed Comments Unknown Sex and Gender Information Value Date Recorded Sex Assigned at Not on file Legal Sex Female 12:45 AM MORTAR CARRIER Gender Identity Female 03/17/2022 5:30 PM MORTAR CARRIER Sexual Orientation Not on file documented as of this encounter Plan of Treatment Not on file documented as of this encounter Visit Diagnoses Diagnosis Supervision of normal first documented in this encounter Care Teams Screen Room Operator Relationship Specialty Start Date End Date Yusef Aleman DO [address] [address] PCP - General 03/26/09 01/29/18 documented as of this encounter
--- OUTSIDE RECORDS SUMMARY | 2024-04-11 00:55 | XMS_ITS | Encounter Summary ---
Author Organization [facility] Healthcare Address [facility] [place] [address] Care Team Providers Care Demonstrator Sales Name Role Phone Unavailable Primary Care Provider Unavailabl e Encounter Details Date Type Department Care Team (Late st Contact Info) Description 10/20/2007 6:08 AM CDT - 10/22/2007 11:15 AM CDT Hospital Encounter [facility] Judy Banks MD [address] [facility] [address] [place] [address] Social History Tobacco Use Types Packs/Day Years Used Date Smoking Tobacco: Never Assessed Comments Unknown Sex and Gender Information Value Date Recorded Sex Assigned at Not on file Legal Sex Female 12:45 AM BARREL LOADER Gender Identity Female 03/17/2022 5:30 PM BARREL LOADER Sexual Orientation Not on file documented as of this encounter Plan of Treatment Not on file documented as of this encounter Visit Diagnoses Not on filedocumented in this encounter
--- OUTSIDE RECORDS SUMMARY | 2024-04-11 00:55 | XMS_ITS | Encounter Summary ---
Author Organization [facility] Healthcare Address [address] [place] [address] Care Team Providers Care Lan/Wan Engineer Name Role Phone Yusef Aleman DO Primary Care Provider [phone] Encounter Details Date Type Department Care Team (Latest Contact Info) Description 02/21/2012 7:42 AM SAFETY DEPOSIT CLERK - 02/21/2012 11:59 PM SAFETY DEPOSIT CLERK Hospital Encounter [facility] Judy Banks MD [address] [address] Encounter for supervision of normal in multigravida Social History Tobacco Use Types Packs/Day Years Used Date Smoking Tobacco: Never Assessed Comments Unknown Sex and Gender Information Value Date Recorded Sex Assigned at Not on file Legal Sex Female 12:45 AM SAFETY DEPOSIT CLERK Gender Identity Female 03/17/2022 5:30 PM SAFETY DEPOSIT CLERK Sexual Orientation Not on file documented as of this encounter Plan of Treatment Not on file documented as of this encounter Visit Diagnoses Diagnosis Encounter for supervision of normal in multigravida documented in this encounter Care Teams Lan/Wan Engineer Relationship Specialty Start Date End Date Yusef Aleman DO [address] [address] PCP - General 03/26/09 01/29/18 documented as of this encounter
--- OUTSIDE RECORDS SUMMARY | 2024-04-11 00:55 | XMS_ITS | Encounter Summary ---
Author Organization [facility] Healthcare Address [address] [place] [address] Care Team Providers Care Dude Ranch Manager Name Role Phone Yusef Aleman DO Primary Care Provider [phone] Encounter Details Date Type Department Care Team (Late st Contact Info) Description 02/07/2011 7:10 AM CDT - 02/07/2011 12:16 PM CDT Hospital Encounter [facility] Judy Fisher MD [address] [address] Incomplete spontaneous ; Personal history of allergy to narcotic agent Social History Tobacco Use Types Packs/Day Years Used Date Smoking Tobacco: Never Assessed Comments Unknown Sex and Gender Information Value Date Recorded Sex Assigned at Not on file Legal Sex Female 12:45 AM MANAGER DESKTOP Gender Identity Female 03/17/2022 5:30 PM MANAGER DESKTOP Sexual Orientation Not on file documented as of this encounter Plan of Treatment Not on file documented as of this encounter Visit Diagnoses Diagnosis Incomplete spontaneous Incomplete spontaneous without mention of complication Personal history of allergy to narcotic agent documented in this encounter Care Teams Dude Ranch Manager Relationship Specialty Start Date End Date Yusef Aleman DO [address] [address] PCP - General 03/26/09 01/29/18 documented as of this encounter
--- OUTSIDE RECORDS SUMMARY | 2024-04-11 00:55 | XMS_ITS | Encounter Summary ---
Author Organization [facility] Healthcare Address [address] [place] [address] Care Team Providers Care Patient Transportation Driver Name Role Phone Unavailable Primary Care Provider Unavailabl e Encounter Details Date Type Department Care Team (Late st Contact Info) Description 03/19/2009 12:01 AM STAFF COMBAT INFORMATION CENTER OFFICER - 03/19/2009 11:59 PM STAFF COMBAT INFORMATION CENTER OFFICER Hospital Encounter [facility] Fiona-Sharona Bryant MD [address] [place] [address] Social History Tobacco Use Types Packs/Day Years Used Date Smoking Tobacco: Never Assessed Comments Unknown Sex and Gender Information Value Date Recorded Sex Assigned at Not on file Legal Sex Female 12:45 AM STAFF COMBAT INFORMATION CENTER OFFICER Gender Identity Female 03/17/2022 5:30 PM STAFF COMBAT INFORMATION CENTER OFFICER Sexual Orientation Not on file documented as of this encounter Plan of Treatment Not on file documented as of this encounter Visit Diagnoses Not on filedocumented in this encounter
--- OUTSIDE RECORDS SUMMARY | 2024-04-11 00:55 | XMS_ITS | Encounter Summary ---
Author Organization [facility] Healthcare Address [address] [place] [address] Care Team Providers Care Tailor Women'S Garment Alteration Name Role Phone Unavailable Primary Care Provider Unavailabl e Encounter Details Date Type Department Care Team (Late st Contact Info) Description 06/24/2007 3:35 PM CDT - 06/24/2007 4:20 PM CDT Hospital Encounter [facility] Sally Banks Social History Tobacco Use Types Packs/Day Years Used Date Smoking Tobacco: Never Assessed Comments Unknown Sex and Gender Information Value Date Recorded Sex Assigned at Not on file Legal Sex Female 12:45 AM FORMAL WAITER/WAITRESS Gender Identity Female 03/17/2022 5:30 PM FORMAL WAITER/WAITRESS Sexual Orientation Not on file documented as of this encounter Plan of Treatment Not on file documented as of this encounter Visit Diagnoses Not on filedocumented in this encounter
--- OUTSIDE RECORDS SUMMARY | 2024-04-11 00:55 | XMS_ITS | Encounter Summary ---
Author Organization [facility] Healthcare Address [facility] [place] [address] Care Team Providers Care Process Steward Name Role Phone Unavailable Primary Care Provider Unavailabl e Encounter Details Date Type Department Care Team (Late st Contact Info) Description 09/08/2007 4:05 PM CDT - 09/08/2007 5:35 PM CDT Hospital Encounter [facility] Judy Banks MD [address] [facility] [address] [place] [address] Social History Tobacco Use Types Packs/Day Years Used Date Smoking Tobacco: Never Assessed Comments Unknown Sex and Gender Information Value Date Recorded Sex Assigned at Not on file Legal Sex Female 12:45 AM ENGINE MAINTENANCE MECHANIC Gender Identity Female 03/17/2022 5:30 PM ENGINE MAINTENANCE MECHANIC Sexual Orientation Not on file documented as of this encounter Plan of Treatment Not on file documented as of this encounter Visit Diagnoses Not on filedocumented in this encounter
--- OUTSIDE RECORDS SUMMARY | 2024-04-11 00:55 | XMS_ITS | Encounter Summary ---
Author Organization [facility] Healthcare Address [facility] [place] [address] Care Team Providers Care Regional Geodetic Advisor Name Role Phone Yusef Aleman DO Primary Care Provider [phone] Encounter Details Date Type Department Care Team (Latest Contact Info) Description 07/04/2013 6:37 AM CDT - 07/04/2013 10:15 AM CDT Hospital Encounter [facility] Darren, Judy Munoz MD [address] [facility] [address] [place], [place] [id number] Other noninflammatory disorders of ovary, fallopian tube, and broad ligament; Symptom associated with female genital organs; Pelvic peritoneal adhesions, female; Personal history of allergy to narcotic agent Social History Tobacco Use Types Packs/Day Years Used Date Smoking Tobacco: Never Assessed Comments Unknown Sex and Gender Information Value Date Recorded Sex Assigned at Not on file Legal Sex Female 12:45 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 Admit Date: 07/04/2013 Dict.: Judy Whitney M.D. Disch. Date: The patient is a 33-year-old G3, P2-0-1-2 who has had severe pelvic pain for a few months now. She had an IUD placed after she had her baby in 2012 and had severe pain, so she opted to have her IUD removed, and she has continued having severe pelvic pain despite the IUD being removed. She says it starts in her back and radiates through to the front, but it is in the midline suprapubic area. She takes tramadol and/or Narco for the pain, which does help. She has been spotting off an on about every other day and sometimes having a moderate flow but no heavy bleeding. She denies problems with urination or moving her bowels. MEDICAL HISTORY Negative. CURRENT MEDICATIONS Oral contraceptive called Quasense, Narco p.r.n., and tramadol p.r.n. ALLERGIES She is allergic to codeine. SURGICAL HISTORY D and C secondary to a miscarriage. SOCIAL HISTORY Negative for tobacco or drug use. She does occasionally drink alcohol. OBSTETRIC HISTORY She has had two vaginal deliveries and one miscarriage. GYNECOLOGIC HISTORY She had an abnormal Pap several years ago but no surgical procedure. Normal Paps since. No history of STDs. FAMILY HISTORY Largely unknown, since she is adopted. REVIEW OF SYSTEMS Negative. PHYSICAL EXAMINATION She weighs 192, pulse 66, blood pressure 122/74. Generally, no apparent distress. Heart: Regular rate and rhythm. Lungs: Clear to auscultation bilaterally. Abdomen is soft, nontender, nondistended. Pelvic exam: The uterus is normal in size, mobile, nontender, smooth. Adnexa nontender with no palpable mass. Pelvic ultrasound done in May of 2013 was entirely normal. ASSESSMENT AND PLAN Pelvic pain not responsive to hormonal management with normal ultrasound. We discussed options, including expectant management, changing hormonal management, or diagnostic laparoscopy. She opted for diagnostic laparoscopy and signed consent after the risks, benefits, complications, and alternatives were discussed. Judy Whitney M.D. [place]/kg TD: 07/01/2013 11:35 Authenticated by Judy Whitney MD On 07/04/2013 07:33:40 AM documented in this encounter Miscellaneous Notes * Op Note - Provider, MD Brian - 07/04/2013 12:00 AM CDT OPERATIVE REPORT Patient: AIRAM MUNOZ Account: [id number] Room No: 175-05 : 1980 Patient Type: SDS Attend.: Judy Whitney M.D. Admit Date: 07/04/2013 Surg.: Judy Whitney M.D. Disch. Date: DATE OF OPERATION July 04, 2013 PREOPERATIVE DIAGNOSIS Pelvic pain. POSTOPERATIVE DIAGNOSIS Pelvic pain, probable endometriosis, bilateral paratubal cysts and pelvic adhesions. NAME OF OPERATION Diagnostic laparoscopy, lysis of adhesions, removal of bilateral paratubal cysts and left peritoneal nodule. ANESTHESIA General endotracheal anesthesia. ESTIMATED BLOOD LOSS 25 mL. COMPLICATIONS None. FINDINGS Normal uterus, normal ovaries bilaterally, normal fallopian tubes with small paratubal cyst on each tube. The left paratubal cyst contained a dark brownish-appearing fluid, possibly consistent with a blood-filled cyst or endometriosis. Adhesions of the colon to the left pelvic side wall and adhesions of the right uterosacral ligament to the surrounding right pelvic side wall, making peritoneal windows. Normal liver, gallbladder, and appendix. White-appearing nodule in the left anterior peritoneum just anterior to the left round ligament and a probable endometriosis implant overlying the left ureter in the pelvic area. INDICATIONS A 33-year-old 3, para 2, 0-1-2, with a history of pelvic pain that started around the time she had a Mirena IUD placed post- in 2012. She had a normal pelvic ultrasound and had the IUD removed. Her pain did not really improve despite removal of IUD and oral contraceptives. She has been bleeding irregularly but nothing heavy and opted for a diagnostic laparoscopy as the next step and signed consent after the risks, benefits, complications and alternatives were discussed. PROCEDURE She was taken to the operating room where a general anesthesia was obtained. She was prepared and draped in the normal sterile fashion in the dorsal lithotomy position. Marcaine was injected infraumbilically and 5 mm skin incision was made in the infraumbilical fold with a scalpel. A 5 mm non bladed trocar was placed with the camera and the trocar under direct visualization into the peritoneal cavity. Insufflation was begun and she was placed in Trendelenburg. Another 5 mm trocar was placed in the midline suprapubic area under direct visualization and a grasper was used to facilitate inspection of the pelvis which revealed the findings as noted above. Once decision was made to remove some adhesions and the para-tubal cysts, a third 5 mm trocar was placed in the right lower quadrant under direct visualization. The paratubal cysts were grasped and the connection to the tube was grasped with the Harmonic scalpel and coagulated and those were both removed and sent for pathology. The Harmonic scalpel was then used to excise the peritoneal nodule just anterior to the round ligament on the left side and this was also sent for pathologic evaluation. The biggest probable endometriosis implant was directly overlying the ureter on the left side and due to the proximity of the ureter, the decision was made to leave that alone to decrease the chance of injury to the ureter. The adhesions creating several peritoneal windows near the area of the right uterosacral ligament were taken down and there were also adhesions of the colon to the left pelvic side wall which were taken down easily. There were some endometriosis implants in the cul-de-sac and more in the midline which were cauterized using the Harmonic scalpel. All operative sites were then inspected again and found to be hemostasis. There were no other visible endometriosis implants other than the one overlying the left ureter and again decision was made to leave that in place. So, the pneumoperitoneum was allowed to escape and all three trocars were removed and all three skin incisions were closed using 4-0 Monocryl in a subcuticular fashion. She tolerated the procedure well. Sponge, lap, needle and instrument counts were correct x2 and she was taken to the recovery room in stable condition. Tayla Dorado TD: 07/04/2013 10:31 Authenticated by Judy Whitney MD On 07/05/2013 03:48:05 AM documented in this encounter Plan of Treatment Not on file documented as of this encounter Procedures Procedure Name Priority Date/Time Associated Diagnosis Comments DISCHARGE CUMULATIVE SUMMARY ADDENDUM Routine 07/06/2013 12:35 AM CDT SURGICAL PATHOLOGY REPORT Routine 07/04/2013 12:06 PM CDT URINE MICROSCOPY Routine 07/04/2013 6:45 AM CDT URINALYSIS Routine 07/04/2013 6:45 AM CDT SERUM CHORIONIC GONADOTROPIN (HCG) IDENTIFICATION Routine 07/04/2013 6:42 AM CDT BLOOD WBC CELL MORPHOLOGIC EXAM, AUTO Routine 07/04/2013 6:42 AM CDT BLOOD CELL COUNT (CBC) Routine 4 6:42 AM CDT DISCHARGE LABORATORY CUMULATIVE REPORT Routine 07/04/2013 12:00 AM CDT documented in this encounter Results * Discharge Cumulative Summary Addendum (07/06/2013 12:35 AM CDT) 07/06/2013 12:3 5 AM CDT Narrative HISTORICAL RESULTS - 07/06/2013 12:35 AM CDT Patient No: [id number] ? [facility] Patient Name: AIRMA MUNOZ ?[facility] Age: 33 YRS ?: 1980 ?Sex:F ?[address] )[phone] ?? Adm Dt: 07/04/2013 ?[place], [place] ??[address] Created: 07/06/2013 ??0035 ?? Pt. Type: O ? Discharge Dt: 07/04/2013 ? Pathologists: Farrah Paul MD Admit Dr. Barillas Dr: JUDY [place] MD ?S U R G I C A L ?P A T H O L O G Y ?R E P O R T ? Case #: ?[id number] ? Date: 07/04/13 SPECIMEN SOURCE: ? 1. ??Right and left paratubal cysts. ? 2. ??Left peritoneal nodule. CLINICAL INFORMATION AND IMPRESSION: ? Pelvic pain. GROSS DESCRIPTION: ? The specimen is received in two containers each labeled Airam Munoz . ? The first container is labeled right and left paratubal cysts . ??It consists ? of membranous and cystic tissue measuring up to 1.5 cm in greatest dimension. ? All embedded in a single cassette. ? The second container is labeled left peritoneal nodule . ??It consists of ? yellow fat floating on the formalin surface and a pip-ilbmq-mvf soft tissue ? fragment measuring 0.8 cm in greatest dimension. ??Cross sectioned and all ? embedded. ?GK/lm MICROSCOPIC DESCRIPTION: ? 1. ??Microscopic examination confirms the presence of paramesonephric paratubal ? cysts associated with marked vascular congestion. ??In addition, there is one ? minute focus of endometriosis. ? 2. ??Microscopic examination of the biopsies of the left peritoneal nodule ? reveals a benign pattern throughout, primarily consisting of vessels, fat and ? smooth muscle. ??I do not identify any neoplastic lesions or other significant ? pathology. ?SR/lm ?? CONTINUED ?Page: ?? 1 Patient No: [id number] ? [facility] Patient Name: AIRAM MUNOZ ?[facility] Healthcare Age: 33 YRS ?: 1980 ?Sex:F ?[address] )[phone] ?? Adm Dt: 07/04/2013 ?[place] ??[address] Created: 07/06/2013 ??0035 ?? Pt. Type: O ? Discharge Dt: 07/04/2013 ? Pathologists: Farrah Paul MD Admit Attend Dr: JUDY [place] MD ?S U R G I C A L ?P A T H O L O G Y ?R E P O R T ? Case #: ?[id number] ? Date: 07/04/13 DIAGNOSIS: ? RIGHT AND LEFT FALLOPIAN TUBES, BIOPSIES: ? -PARATUBAL CYSTS ? -ENDOMETRIOSIS, FOCAL ? LEFT PERITONEUM, BIOPSY: ? -NO PATHOLOGIC DIAGNOSIS ? [id number], [id number], [id number], [id number] ? Pathologist: Farrah Paul M.D. ??Electronic signature ? SCR SCR/LM 07/05/13 ?? END OF CHART ? Page: ?? 2 us Historical Provider MD LAB MICROBIOLOGY - GENERA L ORDERABLES Final Result HISTORICAL RESULTS * Surgical Pathology Report (07/04/2013 12:06 PM CDT) 07/04/2013 12:0 6 PM CDT Narrative HISTORICAL RESULTS - 07/05/2013 2:43 PM CDT [facility] Patient No: [id number] Patient Name: AIRAM MUNOZ Age: 33 YRS ?? : 1980 Admit Phys: JUDY [place] MD Case #: [id number] ? Date: 07/04/13 SPECIMEN SOURCE: ? 1. ??Right and left paratubal cysts. ? 2. ??Left peritoneal nodule. CLINICAL INFORMATION AND IMPRESSION: ? Pelvic pain. GROSS DESCRIPTION: ? The specimen is received in two containers each labeled ? Airam Munoz . ? The first container is labeled right and left paratubal ? cysts . ??It consists of membranous and cystic tissue ? measuring up to 1.5 cm in greatest dimension. ??All embedded ? in a single cassette. ? The second container is labeled left peritoneal nodule . ??It ? consists of yellow fat floating on the formalin surface and a ? fbm-dllax-mtl soft tissue fragment measuring 0.8 cm in ? greatest dimension. ??Cross sectioned and all embedded. ? GK/lm MICROSCOPIC DESCRIPTION: ? 1. ??Microscopic examination confirms the presence of ? paramesonephric paratubal cysts associated with marked ? vascular congestion. ??In addition, there is one minute focus ? of endometriosis. ? 2. ??Microscopic examination of the biopsies of the left ? peritoneal nodule reveals a benign pattern throughout, ? primarily consisting of vessels, fat and smooth muscle. ??I do ? not identify any neoplastic lesions or other significant ? pathology. ?SR/lm DIAGNOSIS: ? RIGHT AND LEFT FALLOPIAN TUBES, BIOPSIES: ? -PARATUBAL CYSTS ? -ENDOMETRIOSIS, FOCAL ? LEFT PERITONEUM, BIOPSY: ? -NO PATHOLOGIC DIAGNOSIS ? [id number], [id number], [id number], [id number] ? Pathologist: Farrah Paul M.D. ??Electronic ?signature ? SCR SCR/LM 07/05/13 us Historical Provider MD LAB PATHOLOGY ORDERABLES Final Result HISTORICAL RESULTS * (ABNORMAL) Urinalysis (07/04/2013 6:45 AM CDT) Color, ur YELLOW YELLOW HISTORICAL RESULTS Clarity, ur CLEAR CLEAR HISTORIC AL RESULTS Specific gravity, ur 1.019 1.000 - 1.030 gu HISTORICAL RESULTS Leukocyte esterase, ur Negative NEGATIVE HISTORICAL RESULTS Nitrites, ur Negative NEGATIVE HISTORI DEEPAK RESULTS pH, ur 5.5 6.0 HISTORICAL RESULTS Protein, ur Negative NEGATIVE HISTORIC AL RESULTS Glucose, ur Negative NEGATIVE HISTORIC AL RESULTS Ketones, ur Negative NEGATIVE HISTORIC AL RESULTS Urobilinogen, quant, ur 0.2 0.2 - 1.0 mg/dl HISTORICAL RESULTS Bilirubin, ur Negative NEGATIVE HISTOR ICAL RESULTS U Blood Trace(A) NEGATIVE HISTORICAL RESULTS Urine 07/04/2013 6:45 AM CDT Judy Whitney MD LAB BLOOD ORDERABLES Fin al Result Performing Organization Address [facility] de Phone Number HISTORICAL RESULTS * (ABNORMAL) Urine microscopy (07/04/2013 6:45 AM CDT) WBC, ur 5 - 10(A) 0 - 2 /hpf HISTORICA L RESULTS RBC, ur 2 - 5(A) 0 - 5 /hpf HISTORICA L RESULTS Epithelial cells, ur 2 - 5(A) 0 - 2 /hpf HISTORICAL RESULTS Bacteria, ur 1+(A) NEGATIVE /hpf HISTORICAL RESULTS Hyaline casts 2 - 5 0 - 4 /lpf HISTO RICAL RESULTS Crystals, ur Negative NEGATIVE HISTORI DEEPAK RESULTS Yeast, ur Negative NEGATIVE HISTORICAL RESULTS Pathological casts, ur Negative NEGATIVE HISTORICAL RESULTS Urine 07/04/2013 6:45 AM CDT Result [facility] Judy Whitney MD LAB BLOOD ORDERABLES Fin al Result Performing Organization Address [facility] de Phone Number HISTORICAL RESULTS * Serum chorionic gonadotropin (HCG) identification (07/04/2013 6:42 AM CDT) HCG, qual Negative NEGATIVE HISTORICAL RESULTS Serum 07/04/2013 6:42 AM CDT Result [facility] Judy Wihtney MD LAB BLOOD ORDERABLES Fin al Result Performing Organization Address [facility] de Phone Number HISTORICAL RESULTS * Blood cell count (CBC) (07/04/2013 6:42 AM CDT) WBC 8.1 4.0 - 10.5 K/cumm HISTORICAL RESULTS RBC 4.50 4.20 - 5.40 M/cumm HISTORICAL RESULTS Hgb 13.6 12.0 - 16.0 g/dl HISTORICAL RESULTS Hct 39.6 37.0 - 47.0 % HISTORICAL RESULTS MCV 88.0 77.0 - 97.0 fl HISTORICAL RESULTS MCH 30.2 23.0 - 34.0 pg HISTORICAL RESULTS MCHC 34.3 32.0 - 36.0 g/dl HISTORICAL RESULTS Rdw 12.9 11.5 - 14.5 % HISTORICAL RESULTS Platelets 279 150 - 450 K/cumm HISTORICAL RESULTS MPV 10.3 7.4 - 10.4 fl HISTORICAL RESULTS Blood specimen (specimen) 07/04/2013 6:42 AM CDT Judy Whitney MD LAB BLOOD ORDERABLES Fin al Result HISTORICAL RESULTS * (ABNORMAL) Blood WBC cell morphologic exam, auto (07/04/2013 6:42 AM CDT) Pathologist [facility] Lymphocytes 34.1(H) 25.0 - 33.0 % HISTORICAL RESULTS Monos 8.8 1.0 - 13.0 % HISTORICAL RESULTS Neutrophils 54.8 53.0 - 69.0 % HISTORICAL RESULTS Eosinophils 1.7 0.0 - 10.0 % HISTORICAL RESULTS Basophils 0.5 0.0 - 1.0 % HISTORICAL RESULTS Immature granulocytes 0.1 0.0 - 1.0 % HISTORICAL RESULTS Lymphocytes, abs 2.8 1.2 - 3.4 K/cumm HISTORICAL RESULTS Monocytes, absolute 0.7(L) 1.1 - 1.9 K/cumm HISTORICAL RESULTS Neutrophils, abs 4.4 1.4 - 6.5 K/cumm HISTORICAL RESULTS Eosinophils, abs 0.1 0.0 - 0.7 cells/cum m HISTORICAL RESULTS Basophils, abs 0.0 0.0 - 0.2 K/cumm HISTORICAL RESULTS Immature granulocyte, abs 0.0 0.0 - 0.0 K/cumm HISTORICAL RESULTS Blood specimen (specimen) 07/04/2013 6:42 AM CDT Judy Whitney MD LAB BLOOD ORDERABLES Fin al Result HISTORICAL RESULTS * Discharge Laboratory Cumulative Report (07/04/2013 12:00 AM CDT) 07/04/2013 Narrative HISTORICAL RESULTS - 07/05/2013 12:35 AM CDT Patient No: [id number] ? [facility] Patient Name: AIRAM MUNOZ ?[facility] Age: 33 YRS ?: 1980 ?Sex:F ?[address] )[id number] ?? Adm Dt: 07/04/2013 ?[place], [place] ??[address] Created: 07/05/2013 ??0035 ?? Pt. Type: O ? Discharge Dt: 07/04/2013 ? Pathologists: Farrah Paul MD Admit Attend Dr: JUDY [place] MD ? BLOOD CELL COUNTS ?Collection Date: ?07/04/13 ?Collection Time: ?0642 ? Ref Range: ?? Units: [4.00-10.50] /CMM ? WBC X 10^3 ?8.06 [4.20-5.40] ??/CMM ? RBC X 10^6 ?4.50 [12.0-16.0] ??G/DL ? HGB ? 13.6 [37.0-47.0] ??% ?HCT ? 39.6 [77.0-97.0] ??FL ? MCV ? 88.0 [23.0-34.0] ??PG ? MCH ? 30.2 [32.0-36.0] ??% ?MCHC ?34.3 [11.5-14.5] ??% ?RDW ? 12.9 [150-450] ?? /CMM ? PLT X 10^3 ? 279 ?BLOOD CELL DIFFERENTIAL ?Collection Date: ?14 ?Collection Time: ?0642 ? Ref Range: ?? Units: [53.0-69.0] ??% ?NEUTROPHILS ? 54.8 [25.0-33.0] ??% ?LYMPHOCYTES ? 34.1 H [1.0-13.0] ??% ?MONOCYTES ?8.8 [0.0-10.0] ??% ?EOSINOPHILS ?1.7 [0.0-1.0] ?? % ?BASOPHILS ?0.5 ? /CMM ? A LYMPHOCYTE ? 2.8 [0.0-1.0] ?? % ?IMM GRAN % ? 0.1 [0.00-0.02] ??/CMM ? A IMM GRAN ?0.01 [1.1-1.9] ?? /CMM ? A MONOCYTE ? 0.7 L [1.4-6.5] ?? /CMM ? A NEUTROPHIL ? 4.4 [0.0-0.7] ?? /CMM ? A EOSINOPHIL ? 0.1 [0.0-0.2] ?? /CMM ? A BASOPHIL ? 0.0 Footnotes and Symbols: L = Low, H = High ?? CONTINUED ?Page: ?? 1 Patient No: [id number] ? [facility] Patient Name: AIRAM MUNOZ ?[facility] Age: 33 YRS ?: 1980 ?Sex:F ?[address] )[id number] ?? Adm Dt: 07/04/2013 ?[place], [place] ??[address] Created: 07/05/2013 ??0035 ?? Pt. Type: O ? Discharge Dt: 07/04/2013 ? Pathologists: Farrah Paul MD Admit Attend Dr: JUDY [place] MD ? HORMONES ?Collection Date: ?/24/14 ?Collection Time: ?0642 ? Ref Range: ?? Units: [NEGATIVE] ?HCG QUALITATIVE ? NEGATIVE ?URINALYSIS ?Collection Date: ?/24/14 ?Collection Time: ?0645 ? Ref Range: ?? Units: [YELLOW] ? U COLOR ? YELLOW ??[CLEAR] ? U APPEARANCE ? CLEAR [1.000-1.030] ? U SPEC GRAVITY ? 1.019 [NEGATIVE] ?U LEUKO ESTRASE ? NEGATIVE [NEGATIVE] ?U NITRITE ? NEGATIVE ?? [6.0] ?U PH ? 5.5 [NEGATIVE] ?U PROTEIN ? NEGATIVE [NEGATIVE] ?U GLUCOSE ? NEGATIVE [NEGATIVE] ?U KETONES ? NEGATIVE [0.2- 1.0] ?UROBILINOGEN ? 0.2 [NEGATIVE] ?U BILIRUBIN ? NEGATIVE [NEGATIVE] ?U BLOOD ?TRACE * ?? [0-2] ?U WBC ? 5-10 * ?? [0-5] ?U RBC ?2-5 * ?? [0-2] ?U EPI CELLS ?2-5 * [NEGATIVE] ?U BACTERIA ?1+ * ?U YEASTS ?NEGATIVE ?? [0-4] ?U HYALINE CASTS ?2-5 [NEGATIVE] ?U CRYSTALS ?NEGATIVE [NEGATIVE] ?U PATH CASTS ?NEGATIVE Footnotes and Symbols: * = Abnormal ?? END OF CHART ? Page: ?? 2 us Historical Provider LAB BLOOD ORDERABLES Wendy childress Result HISTORICAL RESULTS documented in this encounter Visit Diagnoses Diagnosis Other noninflammatory disorders of ovary, fallopian tube, and broad ligament Symptom associated with female genital organs Pelvic peritoneal adhesions, female Pelvic peritoneal adhesions, female (postoperative) (postinfection) Personal history of allergy to narcotic agent documented in this encounter Care Teams Regional Geodetic Advisor Relationship Specialty Start Date End Date Yusef Aleman DO [address] [place] [address] PCP - General 03/26/09 01/29/18 documented as of this encounter
--- OUTSIDE RECORDS SUMMARY | 2024-04-11 00:55 | XMS_ITS | Encounter Summary ---
Author Organization [facility] Healthcare Address [address] [place] [address] Care Team Providers Care Auto Transmission Specialist Name Role Phone Yusef Aleman DO Primary Care Provider Encounter Details Date Type Department Care Team (Latest Contact Info) Description 04/07/2012 9:45 PM CORPORATE DIRECTOR OF HUMAN RESOURCES - 04/10/2012 9:00 AM CORPORATE DIRECTOR OF HUMAN RESOURCES Hospital Encounter [facility] Banks, Judy Munoz MD [address] [facility] [address] [place], [place] [id number] Premature rupture of membranes during , delivered; Maternal pyrexia during labor, delivered; First-degree perineal laceration, delivered; Other current maternal conditions classifiable elsewhere, with delivery; Influenza with respiratory manifestation; Delivery outcome of single liveborn infant; Need for prophylactic vaccination with combined itmprrytfw-iiiligk-lj rtussis (DTP) vaccine; Need for prophylactic vaccination and inoculation against influenza Social History Tobacco Use Types Packs/Day Years Used Date Smoking Tobacco: Never Assessed Comments Unknown Sex and Gender Information Value Date Recorded Sex Assigned at Not on file Legal Sex Female 12:45 AM CORPORATE DIRECTOR OF HUMAN RESOURCES Gender Identity Female 03/17/2022 5:30 PM CORPORATE DIRECTOR OF HUMAN RESOURCES Sexual Orientation Not on file documented as of this encounter Last Filed Vital Signs Vital Sign Reading Time Taken Comments Blood Pressure - - Pulse - - Temperature - - Respiratory Rate - - Oxygen Saturation - - Inhaled Oxygen Concentration - - Weight 94.3 kg (208 lb) 04/08/2012 2:43 AM CORPORATE DIRECTOR OF HUMAN RESOURCES Height 167.6 cm (5' 5.98 ) 04/08/2012 2:43 AM CS T Body Mass Index 33.59 04/08/2012 2:43 AM CORPORATE DIRECTOR OF HUMAN RESOURCES documented in this encounter Medications at Time of Discharge cetirizine (ZyrTEC) 10 mg tablet Take 1 tablet (10 mg total) by mouth daily 03/24/2012 documented as of this encounter Plan of Treatment Not on file documented as of this encounter Visit Diagnoses Diagnosis Premature rupture of membranes during , delivered Maternal pyrexia during labor, delivered Unspecified maternal pyrexia during labor, delivered First-degree perineal laceration, delivered Other current maternal conditions classifiable elsewhere, with delivery Influenza with respiratory manifestation Delivery outcome of single liveborn infant Need for prophylactic vaccination with combined nrcgfmlefw-uraycsk-sygcgbcys (DTP) vaccine Need for prophylactic vaccination and inoculation against influenza documented in this encounter Care Teams Auto Transmission Specialist Relationship Specialty Start Date End Date Yusef Aleman DO [address] [address] PCP - General 03/26/09 01/29/18 documented as of this encounter
--- OUTSIDE RECORDS SUMMARY | 2024-04-11 00:55 | XMS_ITS | Encounter Summary ---
Author Organization [facility] Healthcare Address [facility] [place] [address] Care Team Providers Care Transportation Driver Name Role Phone Yusef Aleman DO Primary Care Provider Encounter Details Date Type Department Care Team (Latest Contact Info) Description 02/07/2012 10:14 AM CDT - 02/07/2012 11:59 PM CDT Hospital Encounter [facility] Judy Fisher MD [address] [facility] [address] [place] [id number] Mirta Lambert, METAL GRADER [address] [place] [id number] Encounter for supervision of normal in multigravida Social History Tobacco Use Types Packs/Day Years Used Date Smoking Tobacco: Never Assessed Comments Unknown Sex and Gender Information Value Date Recorded Sex Assigned at Not on file Legal Sex Female 12:45 AM PHOTOGRAPHIC EQUIPMENT ASSEMBLER Gender Identity Female 03/17/2022 5:30 PM PHOTOGRAPHIC EQUIPMENT ASSEMBLER Sexual Orientation Not on file documented as of this encounter Plan of Treatment Not on file documented as of this encounter Visit Diagnoses Diagnosis Encounter for supervision of normal in multigravida documented in this encounter Care Teams Transportation Driver Relationship Specialty Start Date End Date Yusef Aleman DO [address] [address] PCP - General 03/26/09 01/29/18 documented as of this encounter
--- OUTSIDE RECORDS SUMMARY | 2024-04-11 01:01 | XMS_ITS | Continuity of Care Document ---
Author Organization [facility] Address [address] [place] [address] Phone Care Team Providers Care Rod Cup Filler Name Role Phone Milagros Del Real PTA Unavailable Unavailable Procedures Procedure Date Therapeutic Activities Neuromuscular Re-Ed Therapeutic Exercise Manual Therapy Therapeutic Activities Neuromuscular Re-Ed Therapeutic Exercise PT Evaluation Moderate Complexity Therapeutic Activities Therapeutic Exercise Advance Directives Directive Yes / No Effective Date File Name No Information Encounters Encounter Description Practice Location Reason(s) For Visit Diagnoses Date Provider Providers Copied on Encounter [facility], [address], [place], [place], [id number], tel:[phone] [place] No Information Gt Linares. . Referring Provider: [address], [place], [address]. tel:[phone] [facility] [address], [place], [place], [id number], tel:[phone] [place] No Information Fallon Ferraro. . Referring Provider: [address], [place], [address]. tel:[phone] [facility] [address], [place], [place], [id number], tel:[phone] [place] No Information Fallon Ferraro. . Referring Provider: Myra [address], [place], [address]. tel:[phone] Family History Family Member Type Diagnosis Age At Onset No Information Payers Payer name Insurance type Covered democrat ID Authoriza tiroberta(s) [facility] [id number] Social History Type Description Quantity Date Captured Comments Sex Female Smoking Status No Information Chief Complaint And Reason For Visit No Information Reason For Referral Reason For Referral No Information Plan Of Treatment Date Type Action Status Referral Ordered: Referrals: Specialist. Evaluate and Treat (related to Adjustment disorder with depressed mood) ordered Referral Ordered: Depression: Depression management program timeframe: 1 Day. (related to Depression) ordered Referral Ordered: Clinical Psychology (related to Depression) ordered Appointment Airam Munoz [place] BOOK[facility] History Of Present Illness Encounter Date Complaint History Of Prese nt Illness No Information Functional Status Date Functional Assessmen t No Information Instructions Date Instruction Additional Infor mation No Information Assessments Type Assessment Date No Information Patient Care Teams Name Effective Dates (start - stop) Status Members No Information
--- OUTSIDE RECORDS SUMMARY | 2024-04-11 01:01 | XMS_ITS | Encounter Summary ---
Author Organization [facility] Address [address] [place] [address] Care Team Providers Care Plastic Worker Name Role Phone Unavailable Primary Care Provider Unavailabl e Reason for Visit * Reason Comments Abdominal Pain Pt seen at last w togiak after onset of LLQ abdominal pain, Dx with ovarian torsion at via CT and US and sent to ED, went to ED at [facility] and told to get outpatient care. LLQ abodminal pain continuous, taking Tramadol. Pt Hx of Total Hx and right Oopherectomy. * Auth/Cert Specialty Diagnoses / Procedures Referred By Yanni weaver Referred To Contact Emergency Medicine [facility] Emergency Dept [address] [place] [address] Referral ID Status Reason Start Date Expiration Date Visits Re quested Visits Authorized [id number] 1 1 Encounter Details Date Type Department Care Team (Late st Contact Info) Description 02/02/2018 7:54 PM CDT - 02/02/2018 10:10 PM CDT Emergency [facility] Emergency Department [address] [place] [address] [place] [address] [place] [address] Abdominal pain, acute, left lower quadrant (Primary Dx) Discharge Disposition: Home or Self Care Social History Tobacco Use Types Packs/Day Years Used Date Smoking Tobacco: Never Smokeless Tobacco: Never Alcohol Use Standard Drinks/Week Comments Yes 0 (1 standard drink = 0.6 oz pur e alcohol) Sex and Gender Information Value Date Recorded Sex Assigned at Not on file Gender Identity Not on file Sexual Orientation Not on file documented as of this encounter Last Filed Vital Signs Vital Sign Reading Time Taken Comments Blood Pressure 109/71 02/02/2018 10:00 PM CDT Pulse 75 02/02/2018 10:00 PM CDT Temperature 36.4 ??C (97.5 ??F) 02/02/2018 6:04 PM CD T Respiratory Rate 17 02/02/2018 10:00 PM CDT Oxygen Saturation 96% 02/02/2018 10:00 PM CDT Inhaled Oxygen Concentration - - Weight 95.3 kg (210 lb) 02/02/2018 6:04 PM CDT Height 167.6 cm (5' 6 ) 02/02/2018 6:04 PM CDT Body Mass Index 33.89 02/02/2018 6:04 PM CDT documented in this encounter Discharge Instructions * Attachments The following attachments cannot be sent through Care Everywhere. * Abdominal Pain (Mauritian) * Endometriosis (Mauritian) documented in this encounter Medications at Time of Discharge Medication Sig Dispensed Refills Start Date End Date traMADol (ULTRAM) 50 mg tablet Take 100 mg by mouth every 6 hours as needed for Pain. progesterone micronized (PROMETRIUM) 200 mg Capsule Take 1 Capsule (200 mg) by mouth daily. 7 Capsule 02/02/2018 naproxen (NAPROSYN) 375 mg tablet Take 1 Tablet (375 mg) by mouth 2 times daily with meals. 20 Tablet None 02/02/2018 documented as of this encounter Progress Notes * Ale Lemus MD - 02/02/2018 9:43 PM CDT ACOUSTIC ENGINEER Consult Note Reason for consult: abdominal pain HPI: Airam Munoz is a 37 y.o. female who was seen in the ER on 02/02/2018 for LLQ pain. She reports that she has had this achy, sharp pain for the last four weeks. She says that it has graduallybecome more intense, requiring tramadol and heating pad on her abdomen to help with the pain. It started in her left flank and has radiated down into her left pelvic area. She has been seen in an urgent care and ED trying to find an answer. She reports that an outside Ct and US were concerning for torsion but when she saw an OB in the ED they said that she would need a repeat ultrasound to decidefor sure. She reports trying to call her OB in [place] to get an appointment, but she has yet to establish care and could not get an appointment. She says the pain just persisted today so she came in to be evaluated. Of note she underwent a TLH/LSO with Dr. Rubi at [facility] in 2016 for endometriosis. ROS: As above. Denies chest pain, shortness of breath, headache, or vision symptoms. OB Hx: x 2, SAB x 1 ACOUSTIC ENGINEER Hx: Denies hx of abnormal pap or STIs, hx of endometriosis Past Medical History: Diagnosis Date ??? Endometriosis Past Surgical History: Procedure Laterality Date ??? HX APPENDECTOMY ??? HX HYSTERECTOMY ??? HX LAPAROTOMY OOPHERECTOMY Right ??? HYSTEROSCOPY DIAGNOSTIC D&C x 2 FHx: denies family history of gynecologic malignancies, breast cancer, colon cancer, or bleeding disorders SHx: denies tobacco or illicit drug use; occasional alcohol use Medications: Tramadol Multivitamin No Known Allergies Physical Exam: Vitals: BP (!) 150/68 (BP Location: Right arm, Patient Position (BP): Sitting) Temp 97.5 ??F (36.4 ??C) (Oral) Resp 16 Ht 5' 6 (1.676 m) Wt 95.3 kg (210 lb) SpO2 100% BMI 33.89 kg/m?? General: well-developed, well-nourished female in NAD HEENT: NC/AT, moist mucus membranes Heart: RRR, no m/g/r Lungs: CTAB, no wheezes or rhonchi Abdomen: soft, mildly tender with deep palpation in LLQ, no rebound or guarding, +BS Extremities: no clubbing, cyanosis, or edema. No calf tenderness. Sterile speculum exam: normal vaginal mucosa, cervix surgically absent Bimanual exam: No cervix, no adnexal masses felt bilaterally Labs: Results for orders placed or performed during the hospital encounter of 02/02/18 (from the past 24 hour(s)) URINALYSIS WITH REFLEX MICROSCOPIC Result Value Ref Range COLOR UA Yellow Pale to Dark Yellow CLARITY UA Clear Clear SPECIFIC GRAVITY UA 1.020 1.003 - 1.035 PH UA 5.0 5.0 - 8.0 LEUKOCYTE ESTERASE UA Negative Negative NITRITE UA Negative Negative PROTEIN UA Negative Negative GLUCOSE UA Negative Negative KETONES UA Negative Negative UROBILINOGEN UA Normal <2.0 mg/dL BILIRUBIN UA Negative Negative BLOOD UA 1+ (A) Negative WBC UA 0-2 0 - 2 /hpf RBC UA 0-2 0 - 2 /hpf BACTERIA UA Negative Negative /hpf EPITHELIAL CELLS, URINE 0-5 0 - 5 /hpf CBC WITH DIFFERENTIAL Result Value Ref Range WBC 8.6 4.0 - 9.8 K/uL RBC 4.51 3.90 - 4.90 M/uL HEMOGLOBIN 13.8 11.8 - 14.8 g/dL HEMATOCRIT 39.8 35.5 - 44.0 % MCV 88.2 82.0 - 99.0 fL MCH 30.6 27.2 - 32.6 pg MCHC 34.7 31.5 - 35.5 g/dL RDW 12.4 11.5 - 14.5 % RDW-STDEV 40.1 37.1 - 48.7 fL PLATELETS 299 140 - 350 K/uL MPV 10.4 9.3 - 12.4 fL NEUTROPHILS 52 % LYMPHOCYTES 36 % MONOCYTES 9 % EOSINOPHILS 2 % BASOPHILS 1 % IMMATURE GRANULOCYTES 0 % NEUTROPHIL ABSOLUTE 4.44 1.90 - 7.00 K/uL LYMPHOCYTE ABSOLUTE 3.10 0.70 - 4.50 K/uL MONOCYTE ABSOLUTE 0.77 0.10 - 1.30 K/uL EOSINOPHIL ABSOLUTE 0.21 0.00 - 0.70 K/uL BASOPHILS ABSOLUTE 0.04 0.00 - 0.20 K/uL IMMATURE GRANULOCYTES ABSOLUTE 0.02 0.00 - 0.03 K/uL COMPREHENSIVE METABOLIC PANEL Result Value Ref Range SODIUM 140 136 - 145 mmol/L POTASSIUM 3.9 3.5 - 5.0 mmol/L CHLORIDE 102 98 - 107 mmol/L CO2 22 22 - 29 mmol/L CALCIUM 9.5 8.6 - 10.2 mg/dL BUN 17 6 - 20 mg/dL CREATININE 0.74 0.51 - 0.95 mg/dL GLUCOSE 139 (H) 74 - 99 mg/dL TOTAL PROTEIN 7.7 6.7 - 8.6 g/dL ALBUMIN 4.4 3.5 - 5.2 g/dL BILIRUBIN TOTAL 0.3 0.3 - 1.2 mg/dL ALKALINE PHOSPHATASE 23 (L) 35 - 104 U/L AST 21 <33 U/L ALT 20 <34 U/L GFR >60 >=60 mL/min/1.73 sq meter GFR, >60 >=60 mL/min/1.73 sq meter ANION GAP 16 8 - 16 mmol/L Active Problems: * No active hospital problems. * Assessment/Plan: 37 y.o. female with LLQ pain 1. LLQ Pain - Hypertensive, vitals otherwise stable - Patient reports dull, aching pain in left flank and left lower quadrant worsening over last month - Hx of TLH/LSO for endometriosis in 2016 - Mildly tender for pain in LLQ, no mass palpated on BME - Pain not characteristic of torsion as indicated by ultrasound at [facility] facility - Pain characteristic concerning for lingering endometriotic disease 2. Recommendations: Prometrium 200mg daily, follow-up with Dr. Rubi at [facility] 3. Discussed with Dr. Cheng, Hand Spray Operator. Thank you for the consult. Ale Lemus MD PIPE CLEANER resident documented in this encounter ED Notes * Evelyne Villarreal RN - 02/02/2018 10:05 PM CDT Pt resting on stretcher, denies needs and concerns. Assessment remains unchanged. Pt remains on monitors. VSS. Unlabored breathing pattern noted. Stretcher in low locked position. Family at bedside. Call light in reach. * Evelyne Villarreal RN - 02/02/2018 8:19 PM CDT This RN agrees with triage note Pt seen at last week after onset of LLQ abdominal pain, Dx withovarian torsion at via CT and US and sent to ED, went to ED at [facility] and told to get outpatient care. LLQ abodminal pain continuous, taking Tramadol. Pt Hx of Total Hx and right Oopherectomy . Pt placed on BP and pulse ox. VSS. RR even and unlabored. Pt rates pain a 4 in a scale of 0-10. Pt speaking in complete sentences. Pt A&O x4. Family at bedside. Call light in reach. * Evelyne Villarreal RN - 02/02/2018 8:13 PM CDT MD at bedside with primary assessment. * Kristine Hilliard RN - 02/02/2018 6:57 PM CDT Emergency Department Adult Female Abdominal Pain Protocol [facility] ORDERS ARE ENTERED ???PER PROTOCOL?? Nursing Orders: o Insert peripheral IV (excessive vomiting or diarrhea) Laboratory Orders: o CBC with diff ([id number]) o CMP (LAB17) o If female of childbearing age: POC Urine HCG (POC7) or HCG Qualitative urine (INX879) if sending to lab o Urinalysis with Reflex Microscopy ([id number]) o Serum HCG (if knowingly ) (CEH188) o Obtain serum lipase (LAB99) if upper abdominal pain o Draw and send extra tubes to lab (ED hold) ([id number]) Diagnostic Test Orders: o If RUQ pain, consult attending physician for Gallbladder ultrasound o EKG if age >= 50 and having upper abdominal pain Include indication for test Medication Orders: o Sodium chloride 0.9% (normal saline) flush 5 mL every 8 hours o Sodium chloride 0.9% (normal saline) flush 5 mL PRN for saline lock or medication administration Additional Instructions: o Keep NPO until otherwise ordered by attending physician Initiating Department(s): Adult Emergency Department Reviewed: 08/15, 08/16, 08/17, 08/18, 08/19, 08/20, 08/21, 08/23, 04/26, 03/26, 07/2014, 08/2015, 08/2016, 03/2017 Revised: 08/22, 08/23, 04/26, 03/26, 07/2014, 08/2015, 08/2016,03/2017 Revised by: Eugenia Weber RN, BSN, EM Nurse Mica Sizer Approved by: Medical Executive Committee, Nursing Leadershp, Pharmacy [employer] Date:03/2017 * Kristine Hilliard RN - 02/02/2018 6:05 PM CDT We promote safety at our facility and do not allow any type of weapon in the building. Do you have a weapon or something that could be used as a weapon on you today? denied possession of any weapons or firearms at this time * Haim Resendiz MD - 02/02/2018 6:02 PM CDT History of Present Illness Primary Care Doctor: No primary care provider on file. Documented Triage Chief Complaint: Abdominal Pain Provider was at the bedside at 8:06 PM Airam Munoz is a 37 y.o. female who presents with gradual onset of LLQ abdominal pain 2 weeks ago which has been progressively worsening. No fever, chills, vomiting. Patient was seen at [facility] last week with CT and US performed concerning for ovarian torsion. Patient states she was informed ovary was enlarged, not getting blood, and retaining water. She went [facility] ER on 01/30 and OB was consulted who recommended she needed another US for comparison . However patient states this has not been ordered. Patient reports h/o hysterectomy with right oophorectomy. Onset: gradual Severity: moderate Duration: 2 weeks Frequency/Progression: worsening Quality: pressure Radiation: none Associated symptoms: none Patient information was obtained from primarily from the patient History/Exam limitations: none Review of Systems ?? A comprehensive review of systems was completed. See HPI for additional ROS Constitutional: No Fever, No chills ENT: No rhinorrhea, No sore throat Eyes: No vision change, no photophobia Respiratory: No cough, No dyspnea Cardiac: No chest pain, No palpitations GI: + abdominal pain, no nausea, no vomiting, no diarrhea : No dysuria, no hematuria Musculoskeletal: No joint pain, no muscle aches Skin: No rash Heme: No spontaneous bleeding, no bruising Neuro: No weakness, no headache Psych: No hallucinations, no acute change in mood Relevant Medical History Past Medical History: Past Medical History: Diagnosis Date ??? Endometriosis Past Surgical History: Past Surgical History: Procedure Laterality Date ??? HX APPENDECTOMY ??? HX HYSTERECTOMY ??? HX LAPAROTOMY OOPHERECTOMY Right ??? HYSTEROSCOPY DIAGNOSTIC Home Medications: Discharge Medication List as of 02/02/2018 9:34 PM START taking these medications Details progesterone micronized (PROMETRIUM) 200 mg Capsule Take 1 Capsule (200 mg) by mouth daily., Disp-7Capsule, R-0 naproxen (NAPROSYN) 375 mg tablet Take 1 Tablet (375 mg) by mouth 2 times daily with meals., Disp-20 Tablet, R-None CONTINUE these medications which have NOT CHANGED Details traMADol (ULTRAM) 50 mg tablet Take 100 mg by mouth every 6 hours as needed for Pain. Allergies: Patient has no known allergies. Social History: reports that she has never smoked. She has never used smokeless tobacco. She reports that she drinks alcohol. She reports that she does not use drugs. Family History: family history is not on file. Physical Exam ED Triage Vitals [02/02/18 180] Enc Vitals Group BP (!) 150/68 Pulse Resp 16 Temp 97.5 ??F (36.4 ??C) Temp src Oral SpO2 100 % Weight 210 lb Height 5' 6 Head Circumference Peak Flow Pain Score Pain Loc Pain Edu? Excl. in GC? Vitals: 02/02/18 1804 02/02/18 2100 02/02/18 2200 Temp: 97.5 ??F (36.4 ??C) Pulse: 75 Heart Rate: 104 bpm BP: (!) 150/68 109/71 Mean Arterial Pressure: 77 MM HG Resp: 16 16 17 SpO2: 100% 96% General: Alert, no obvious distress HEENT: Normocephalic, atraumatic, Throat clear, Nose without drainage, mucous membranes moist Neck: No JVD Back: Not tender Chest Wall: No tenderness, injury or deformity Heart: RRR without murmur Lungs: CTA = Bilat Abdomen: Soft, moderate tenderness to LLQ, normal bowel sounds Rectal: Not performed Extremities: No edema, no calf tenderness Skin: No rash, no petechiae, no purpura Lymphatic: No lymphadenopathy noted Neuro: No facial droop, good and equal strength in all ext. Psychiatric: normal affect and mood. Other: Studies and Interpretation Pulse Oximetry Interpretation: Saturation: 100% Oxygen Delivery: Room Air Interpretation: Not hypoxic Imaging (all imaging was independently reviewed by me if performed): No orders to display Lab: (Reviewed by me if performed), Significant for: Results for orders placed or performed during the hospital encounter of 02/02/18 (from the past 24 hour(s)) URINALYSIS WITH REFLEX MICROSCOPIC Result Value Ref Range COLOR UA Yellow Pale to Dark Yellow CLARITY UA Clear Clear SPECIFIC GRAVITY UA 1.020 1.003 - 1.035 PH UA 5.0 5.0 - 8.0 LEUKOCYTE ESTERASE UA Negative Negative NITRITE UA Negative Negative PROTEIN UA Negative Negative GLUCOSE UA Negative Negative KETONES UA Negative Negative UROBILINOGEN UA Normal <2.0 mg/dL BILIRUBIN UA Negative Negative BLOOD UA 1+ (A) Negative WBC UA 0-2 0 - 2 /hpf RBC UA 0-2 0 - 2 /hpf BACTERIA UA Negative Negative /hpf EPITHELIAL CELLS, URINE 0-5 0 - 5 /hpf CBC WITH DIFFERENTIAL Result Value Ref Range WBC 8.6 4.0 - 9.8 K/uL RBC 4.51 3.90 - 4.90 M/uL HEMOGLOBIN 13.8 11.8 - 14.8 g/dL HEMATOCRIT 39.8 35.5 - 44.0 % MCV 88.2 82.0 - 99.0 fL MCH 30.6 27.2 - 32.6 pg MCHC 34.7 31.5 - 35.5 g/dL RDW 12.4 11.5 - 14.5 % RDW-STDEV 40.1 37.1 - 48.7 fL PLATELETS 299 140 - 350 K/uL MPV 10.4 9.3 - 12.4 fL NEUTROPHILS 52 % LYMPHOCYTES 36 % MONOCYTES 9 % EOSINOPHILS 2 % BASOPHILS 1 % IMMATURE GRANULOCYTES 0 % NEUTROPHIL ABSOLUTE 4.44 1.90 - 7.00 K/uL LYMPHOCYTE ABSOLUTE 3.10 0.70 - 4.50 K/uL MONOCYTE ABSOLUTE 0.77 0.10 - 1.30 K/uL EOSINOPHIL ABSOLUTE 0.21 0.00 - 0.70 K/uL BASOPHILS ABSOLUTE 0.04 0.00 - 0.20 K/uL IMMATURE GRANULOCYTES ABSOLUTE 0.02 0.00 - 0.03 K/uL COMPREHENSIVE METABOLIC PANEL Result Value Ref Range SODIUM 140 136 - 145 mmol/L POTASSIUM 3.9 3.5 - 5.0 mmol/L CHLORIDE 102 98 - 107 mmol/L CO2 22 22 - 29 mmol/L CALCIUM 9.5 8.6 - 10.2 mg/dL BUN 17 6 - 20 mg/dL CREATININE 0.74 0.51 - 0.95 mg/dL GLUCOSE 139 (H) 74 - 99 mg/dL TOTAL PROTEIN 7.7 6.7 - 8.6 g/dL ALBUMIN 4.4 3.5 - 5.2 g/dL BILIRUBIN TOTAL 0.3 0.3 - 1.2 mg/dL ALKALINE PHOSPHATASE 23 (L) 35 - 104 U/L AST 21 <33 U/L ALT 20 <34 U/L GFR >60 >=60 mL/min/1.73 sq meter GFR, >60 >=60 mL/min/1.73 sq meter ANION GAP 16 8 - 16 mmol/L Medical Decision Making and ED Course Medical Decision Making: Patient presents with gradual onset left lower quadrant pain. Outpatient ultrasound showed possibletorsion several days ago. Her pain persists, therefore, she presents to the ED for further evaluation. She states her former ACOUSTIC ENGINEER retired. She does have an appointment with 1 [facility] her [facility] ACOUSTIC ENGINEER [facility]. ED workup is negative. She was evaluated by the ACOUSTIC ENGINEER team in the ER. They feel that torsion is very unlikely. They are recommending treatment with progesterone, analgesics, follow-up with her signaler in 2 days as scheduled. Progress Note(s) -- on initial evaluation discussed plan for blood work here. Will review outside imaging from [facility] and update patient to plan. 8:25 PM: I have reviewed outside imaging. Updated patient. Will consult ACOUSTIC ENGINEER on-call. Case Discussed: 8:35 PM: D/w Dr. Grider, ACOUSTIC ENGINEER. She will send the resident down to evaluate the patient. 9:30 PM: Dr Grider reports exam and history not consistent with torsion. Recommend refer back to Dr. Mert Salmeron at [facility] who has treated her in the past for endometriosis. Medications Administered During the ED Stay from 02/02/2018 1802 to 02/03/2018 0016 Date/Time Order Dose Route Action 02/02/20182055 ketorolac (TORADOL) injection 15 mg 15 mg IV Given Amount and/or Complexity of Data Reviewed --I reviewed the labs and/or radiology studies, vital signs, and nursing notes. I agree with the nursing notes except as noted in the body of this record. --Clinical lab tests: ordered and reviewed --Independent visualization of images, tracings, or specimens (including EKGs): yes --Previous electrocardiograms reviewed: no --Reviewed past medical records: yes --Discuss the patient with other providers: yes Condition at disposition: Stable : I updated the patient on findings, diagnosis, and plan for discharge. Any prescriptions given arelisted below and they were instructed to follow up with the given provider. Pt agrees with the planand is comfortable going home. The patient is clinically well; my impression is that at this time, they are safe for discharge. I have spent time counseling the patient on their diagnosis, findings, results, and plan including strict return to ER instructions for this diagnosis and mandatory followup. ED provider and ED nurse verbally discussed patient plan of care at this time. Vitals at Discharge: BP 109/71 (BP Location: Right arm, Patient Position (BP): Sitting) Pulse 75 Temp 97.5 ??F (36.4 ??C) (Oral) Resp 17 Ht 5' 6 (1.676 m) Wt 95.3 kg (210 lb) SpO2 96% BMI 33.89 kg/m?? New Prescriptions: Discharge Medication List as of 02/02/2018 9:34 PM START taking these medications Details progesterone micronized (PROMETRIUM) 200 mg Capsule Take 1 Capsule (200 mg) by mouth daily., Disp-7Capsule, R-0 naproxen (NAPROSYN) 375 mg tablet Take 1 Tablet (375 mg) by mouth 2 times daily with meals., Disp-20 Tablet, R-None CONTINUE these medications which have NOT CHANGED Details traMADol (ULTRAM) 50 mg tablet Take 100 mg by mouth every 6 hours as needed for Pain. Follow Up: Faviola Dodd, Mert Shea MD [address] [id number] In 2 days Diagnosis: Encounter Diagnoses Code Name Primary? R10.32 Abdominal pain, acute, left lower quadrant Yes Disposition: Discharge Note: This H+P was created with the aid of dictation software, thus there may be some word substitutions or errors. This note has been prepared by Rhonda Borrego acting as a scribe for Dr. Niko Resendiz on 02/02/2018 at 9:36 PM. The scribe's documentation has been prepared under my direction and personally reviewed by me, in its entirety on 02/03/18 at 12:16 AM. I confirm that the note above accurately reflects all work, treatment, procedures, and medical decision making performed by md. documented in this encounter Plan of Treatment Not on file documented as of this encounter Procedures Procedure Name Priority Date/Time Associated Diagnosis Comments CBC WITH DIFFERENTIAL Stat 02/02/2018 7:04 PM CDT COMPREHENSIVE METABOLIC PANEL Stat 02/02/2018 7:04 PM CDT URINALYSIS W/REFLEX MICROSCOPIC Stat 02/02/2018 6:52 PM CDT documented in this encounter Results * (ABNORMAL) COMPREHENSIVE METABOLIC PANEL (02/02/2018 7:04 PM CDT) SODIUM 140 136 - 145 mmol/L 02/02/2018 7:46 PM CDT [facility] POTASSIUM 3.9 3.5 - 5.0 mmol/L 02/02/2018 7:46 PM CDT [facility] CHLORIDE 102 98 - 107 mmol/L 02/02/2018 7:46 PM CDT [facility] CO2 22 22 - 29 mmol/L 02/02/2018 7:46 PM CDT [facility] CALCIUM 9.5 8.6 - 10.2 mg/dL 02/02/2018 7:46 PM CDT [facility] BUN 17 6 - 20 mg/dL 02/02/2018 7:46 PM CDT [facility] CREATININE 0.74 0.51 - 0.95 mg/dL 02/02/2018 7:46 PM CDT [facility] GLUCOSE 139(H) 74 - 99 mg/dL 02/02/2018 7:46 PM CDT [facility] TOTAL PROTEIN 7.7 6.7 - 8.6 g/dL 02/02/2018 7:46 PM CDT [facility] ALBUMIN 4.4 3.5 - 5.2 g/dL 02/02/2018 7:46 PM CDT [facility] BILIRUBIN TOTAL 0.3 0.3 - 1.2 mg/dL 02/02/2018 7:46 PM CDT [facility] ALKALINE PHOSPHATASE 23(L) 35 - 104 U/L 02/02/2018 7:46 PM CDT [facility] AST 21 <33 U/L 02/02/2018 7:[address] [facility] ALT 20 <34 U/L 02/02/2018 7:[address] [facility] GFR >60 >=60 mL/min/1.7 3 sq meter 02/02/2018 7:46 PM CDT [facility] Comment: eGFR has not been validated for use in the elderly (> 70 years of age), women, patients with serious co-morbid conditions, or persons with extremes of body size or muscle mass and should also be interpreted with caution in patients with acute kidney failure, dialysis dependent patients, patients reporting exceptional dietary intake (e.g. vegetarian diet, high protein diets, creatine supplementation), and patients with severe liver disease. Based on National Kidney Disease Education Program If patient is , please refer to the GFR result. GFR, >60 >=60 mL/min/1.7 3 sq meter 02/02/2018 7:46 PM CDT [facility] ANION GAP 16 8 - 16 mmol/L 02/02/2018 7:[address] [facility] Blood Venipuncture / Unknown 02/02/2018 7:04 PM CDT 02/02/2018 7:10 PM CDT Narrative [facility] - 02/02/2018 7:46 PM CDT Samples containing indocyanine green cause interferences on Total and/or Direct Bilirubin and must not be measured. Haim Resendiz MD CHEMISTRY ORDERABLE S [facility]# [id number] [address] [facility] [address] * CBC WITH DIFFERENTIAL (02/02/2018 7:04 PM CDT) WBC 8.6 4.0 - 9.8 K/uL 02/02/2018 7:23 PM CDT [facility] RBC 4.51 3.90 - 4.90 M/uL 02/02/2018 7:23 PM CDT [facility] HEMOGLOBIN 13.8 11.8 - 14.8 g/dL 02/02/2018 7:23 PM CDT [facility] HEMATOCRIT 39.8 35.5 - 44.0 % 02/02/2018 7:23 PM CDT [facility] MCV 88.2 82.0 - 99.0 fL 02/02/2018 7:23 PM CDT [facility] MCH 30.6 27.2 - 32.6 pg 02/02/2018 7:23 PM CDT [facility] MCHC 34.7 31.5 - 35.5 g/dL 02/02/2018 7:23 PM CDT [facility] RDW 12.4 11.5 - 14.5 % 02/02/2018 7:23 PM CDT [facility] RDW-STDEV 40.1 37.1 - 48.7 fL 02/02/2018 7:23 PM CDT [facility] PLATELETS 299 140 - 350 K/uL 02/02/2018 7:23 PM CDT [facility] MPV 10.4 9.3 - 12.4 fL 02/02/2018 7:23 PM CDT [facility] NEUTROPHILS 52 % 02/02/2018 7:23 PM CDT [facility] LYMPHOCYTES 36 % 02/02/2018 7:23 PM CDT [facility] MONOCYTES 9 % 02/02/2018 7:23 PM CDT [facility] EOSINOPHILS 2 % 02/02/2018 7:23 PM CDT [facility] BASOPHILS 1 % 02/02/2018 7:23 PM CDT [facility] IMMATURE GRANULOCYTES 0 % 02/02/2018 7:23 PM CDT [facility] NEUTROPHIL ABSOLUTE 4.44 1.90 - 7.00 K/uL 02/02/2018 7:23 PM CDT [facility] LYMPHOCYTE ABSOLUTE 3.10 0.70 - 4.50 K/uL 02/02/2018 7:23 PM CDT [facility] MONOCYTE ABSOLUTE 0.77 0.10 - 1.30 K/uL 02/02/2018 7:23 PM CDT [facility] EOSINOPHIL ABSOLUTE 0.21 0.00 - 0.70 K/uL 02/02/2018 7:23 PM CDT [facility] BASOPHILS ABSOLUTE 0.04 0.00 - 0.20 K/uL 02/02/2018 7:23 PM CDT [facility] IMMATURE GRANULOCYTES ABSOLUTE 0.02 0.00 - 0.03 K/uL 02/02/2018 7:23 PM CDT [facility] Blood Venipuncture / Unknown 02/02/2018 7:04 PM CDT 02/02/2018 7:10 PM CDT Haim Resendiz MD HEMATOLOGY ORDERABL ES [facility]# [id number] [address] [place] [address] * (ABNORMAL) URINALYSIS WITH REFLEX MICROSCOPIC (02/02/2018 6:52 PM CDT) COLOR UA Yellow Pale to Dark Yellow 02/02/2018 7:14 PM CDT [facility] CLARITY UA Clear Clear 02/02/2018 7:14 PM CDT [facility] . [facility] SPECIFIC GRAVITY UA 1.020 1.003 - 1.035 02/02/2018 7:14 PM CDT [facility] . [facility] PH UA 5.0 5.0 - 8.0 02/02/2018 7:14 PM CDT [facility] . [facility] LEUKOCYTE ESTERASE UA Negative Negative 02/02/2018 7:14 PM CDT [facility] NITRITE UA Negative Negative 02/02/2018 7:14 PM CDT [facility] PROTEIN UA Negative Negative 02/02/2018 7:14 PM CDT [facility] GLUCOSE UA Negative Negative 02/02/2018 7:14 PM CDT [facility] KETONES UA Negative Negative 02/02/2018 7:14 PM CDT [facility] UROBILINOGEN UA Normal <2.0 mg/dL 8 7:14 PM CDT [facility] BILIRUBIN UA Negative Negative 02/02/2018 7:14 PM CDT [facility] BLOOD UA 1+(A) Negative 02/02/2018 7:14 PM CDT [facility] WBC UA 0-2 0 - 2 /hpf 02/02/2018 7:14 PM CDT [facility] RBC UA 0-2 0 - 2 /hpf 02/02/2018 7:14 PM CDT [facility] BACTERIA UA Negative Negative /hpf 02/02/2018 7:14 PM CDT [facility] EPITHELIAL CELLS, URINE 0-5 0 - 5 /hpf 02/02/2018 7:14 PM CDT [facility] Urine URINE SPECIMEN OBTAINED BY CLEAN CATCH PROCEDURE / Unknown Collection / Unknown 02/02/2018 6:52 PM CDT 02/02/2018 6:52 PM CDT Haim Resendiz MD URINE ORDERABLES [facility]# [id number] [address] [place] [address] [place] [address] documented in this encounter Visit Diagnoses Diagnosis Abdominal pain, acute, left lower quadrant- Primary Abdominal pain, left lower quadrant documented in this encounter Administered Medications Inactive Administered Medications - up to 3 most recent administrations Medication Order MAR Action Action Date Dose Rate Site ketorolac (TORADOL) injection 15 mg 15 mg, IV, ONE TIME ONLY, 1 dose, On Thu02/02/18 at 2045, Routine Given 02/02/2018 8:56 PM CDT 15 mg documented in this encounter Active and Recently Administered Medications Times are shown in CDT. Scheduled Medication Order 01/31/2018 02/01/2018 02/02/2018 ketorolac (TORADOL) injection 15 mg (COMPLETED) 15 mg, IV, ONE TIME ONLY, 1 dose, On Thu02/02/18 at 2044, Routine 2055 (Given - Provid er: Evelyne Villarreal RN) documented in this encounter
--- OUTSIDE RECORDS SUMMARY | 2024-04-11 01:01 | XMS_ITS | Clinical Summary ---
Author Organization [facility] Address [address] [place] [phone] Phone Care Team Providers Care Inside Sales Advertising Executive Name Role Phone Unavailable Primary Care Provider Unavailabl e Allergies No known active allergies Medications Medication Sig Dispensed Refills Start Date End Date Status traMADol (ULTRAM) 50 mg tablet Take 100 mg by mouth every 6 hours as needed for Pain. Active progesterone micronized (PROMETRIUM) 200 mg Capsule Take 1 Capsule (200 mg) by mouth daily. 7 Capsule 02/02/2018 Active naproxen (NAPROSYN) 375 mg tablet Take 1 Tablet (375 mg) by mouth 2 times daily with meals. 20 Tablet None 02/02/2018 Active Social History Tobacco Use Types Packs/Day Years [...] Mass Index 33.89 02/02/2018 6:04 PM CDT Plan of Treatment Health Maintenance Due Date Last Done Comments DTAP/TDAP/TD VACCINES (1 - Tdap) 1997 HEPATITIS B VACCINES (1 of 3 - 19+ 3-dose series) 1997 CERVICAL CANCER SCREENING 2008 BREAST CANCER SCREENING 2018 COLORECTAL SCREENING 2023 Colorectal Cancer Screening 2023 FIT-DNA Q 3 years 2023 FIT/FOBT Q 1 year 2023 Flex Sig/CT Colonography Q 5 years 2023 INFLUENZA VACCINE (#1) 2023 HPV VACCINES Aged Out No longer eligi ble based on patient's age to complete this topic PNEUMOCOCCAL VACCINE 0-64 YEARS Aged Out No longer eligible based on patient's age to complete this topic
== END 2024-04-04 09:47 | disposition home or self-care (01) ==
PROVIDERS: PCP Internal Medicine; Visit Provider Internal Medicine Gastroenterology
PROC: 0DJD8ZZ Inspection of Lower Intestinal Tract, Via Natural or Artificial Opening Endoscopic (ICD-10-PCS; CPT 45378; principal; 2024-04-04 09:00)
DX: Z12.11 Encounter for screening for malignant neoplasm of colon (principal); K64.8 Other hemorrhoids; Z80.0 Family history of malignant neoplasm of digestive organs; E66.9 Obesity, unspecified; Z68.37 Body mass index [BMI] 37.0-37.9, adult
CPT/HCPCS: 45378; J2003; J2405; J2704; J7120